=== PATIENT | male | born 1940 | race Two or more races ===

== ENCOUNTER 2019-08-11 10:49 | Inpatient (IN) | payer MEDICARE, OTHER ==
[~2019-08-11] VITALS: Ht 152.4 cm; Wt 56.7 kg
[2019-08-11] VITALS (9 sets, daily range): BP systolic 112–128; BP diastolic 42–68
--- NOTE | 2019-08-11 10:50 | NUR ---
ED Nurse Note: [facility] d/t episodes of bradycardia with HR 38--68 bpm. Pt's GCS 13, verbally responsive to painful stimuli. Pt's with G-tube. Noted skin intact. Per used car manager, pt has PMHx of HTN, CVA. Placed on bed, hooked to radiation monitor.
--- NOTE | 2019-08-11 11:00 | NUR ---
ED Nurse Note: Pt's on bed, no signs of acute distress; son on bedside.
--- NOTE | 2019-08-11 11:10 | NUR ---
ED Nurse Note: rectal temp: 98.1F
--- NOTE | 2019-08-11 11:22 | NUR ---
ED Nurse Note: X-ray on bedside.
--- NOTE | 2019-08-11 11:22 | Emergency Room Report ---
History of Present Illness General Chief Complaint: General Complaint Source: EMS Present Illness HPI Is a 79-year-old male brought in by EMS after increased bradycardia. Apparently patient has had this in the past. Patient had prior history of multiple blood pressure medications as well as hyperkalemia in the past. He had been noted to have some history of dementia in the past and had previously been hospitalized at [facility] approximately 3 months ago. Allergies: Coded Allergies: PENICILLINS (Unverified Allergy, Unknown, 08/11/19) Patient History Past Medical History: HTN, dementia Reviewed Nursing Documentation: PMH: Agreed; PSxH: Agreed Nursing Documentation-PMH Hx Cardiac Problems: No - Hypokalemia Hx COPD: No - Acute Respiratory Failure with Hypoxia Hx Gastrointestinal Problems: Yes - Gastrostomy Hx Dialysis: No - Generalized muscle weakness History Of Psychiatric Problem: Yes - Dementia Hx Seizures: Yes - Epilepsy Physical Exam Vital Signs Date Time Temp Pulse Resp B/P (MAP) Pulse Ox O2 Delivery O2 Flow Rate FiO2 08/11/19 10:37 98.8 52 18 138/72 (94) 97 Room Air General Appearance: no apparent distress, GCS 15, Chronically Ill ENT: normal ENT inspection Neck: full range of motion, supple Respiratory: chest non-tender, lungs clear, normal breath sounds, no rhonchi Cardiovascular #1: bradycardia Gastrointestinal: normal inspection, normal bowel sounds, non tender, soft Musculoskeletal: normal inspection, normal range of motion Neurologic: alert, motor strength/tone normal, repair servicer III-XII nml as tested, oriented x3 Skin: no rash Lymphatic: normal inspection Medical Decision Making Diagnostic Impression: Primary Impression: Bradycardia Additional Impressions: Hyperkalemia Dementia ER Course Patient presented for bradycardia. Differential diagnosis include was not limited to hyperkalemia, medication reaction, sick sinus syndrome among others. Laboratory testing shows some evidence of hyperkalemia. The patient was noted to bradycardia with some associated hypotension. He was given peripheral dopamine with some improvement in the bradycardia.Because of complexity of patient's case laboratory tests and imaging studies were ordered. Patient's heart rate is somewhat slow and may be related to medications. He was given IV calcium as well as Kayexalate due to hyperkalemia. Patient was started on a dopamine drip. He had improvement in his heart rate initiallyDrDhaval Kee was contacted for inpatient management patient would be admitted to ICU due to bradycardia. Labs Test 08/11/19 11:19 White Blood Count 8.3 K/UL (4.8-10.8) Red Blood Count 3.83 M/UL (4.70-6.10) Hemoglobin 12.8 G/DL (14.2-18.0) Hematocrit 39.9 % (42.0-52.0) Mean Corpuscular Volume 104 FL (80-99) Mean Corpuscular Hemoglobin 33.4 PG (27.0-31.0) Mean Corpuscular Hemoglobin Concent 32.0 G/DL (32.0-36.0) Red Cell Distribution Width 11.7 % (11.6-14.8) Platelet Count 252 K/UL (150-450) Mean Platelet Volume 8.1 FL (6.5-10.1) Neutrophils (%) (Auto) 56.6 % (45.0-75.0) Lymphocytes (%) (Auto) 25.1 % (20.0-45.0) Monocytes (%) (Auto) 12.0 % (1.0-10.0) Eosinophils (%) (Auto) 4.1 % (0.0-3.0) Basophils (%) (Auto) 2.2 % (0.0-2.0) Sodium Level 128 MMOL/L (136-145) Potassium Level 5.5 MMOL/L (3.5-5.1) Chloride Level 95 MMOL/L (98-107) Carbon Dioxide Level 30 MMOL/L (21-32) Anion Gap 3 mmol/L (5-15) Blood Urea Nitrogen 24 mg/dL (7-18) Creatinine 0.6 MG/DL (0.55-1.30) Estimat Glomerular Filtration Rate mL/min (>60) Glucose Level 130 MG/DL (74-106) Calcium Level 8.1 MG/DL (8.5-10.1) Total Bilirubin 0.3 MG/DL (0.2-1.0) Aspartate Amino Transf (AST/SGOT) 56 U/L (15-37) Alanine Aminotransferase (ALT/SGPT) 94 U/L (12-78) Alkaline Phosphatase 236 U/L (46-116) Troponin I 0.000 ng/mL (0.000-0.056) Total Protein 7.4 G/DL (6.4-8.2) Albumin 2.8 G/DL (3.4-5.0) Globulin 4.6 g/dL Albumin/Globulin Ratio 0.6 (1.0-2.7) Thyroid Stimulating Hormone (TSH) 2.104 uiU/mL (0.358-3.740) EKG Diagnostic Results Rate: bradycardiac Rhythm: NSR ST Segments: no acute changes Last Vital Signs Date Time Temp Pulse Resp B/P (MAP) Pulse Ox O2 Delivery O2 Flow Rate FiO2 08/11/19 10:37 98.8 52 18 138/72 (94) 97 Room Air Status: improved Disposition: ADMITTED INPATIENT Condition: Serious Mihai Hart MD Aug 11, 2019 11:22
[2019-08-11] MEDS ORDERED: NORCO 5-325 TA1 EACH ORAL (11:27)
[2019-08-11] MEDS ORDERED: FLOMAX0.4 MG GT (11:27)
[2019-08-11] MEDS ORDERED: HYDROCHLOROTH12.5 MG GT (11:27)
[2019-08-11] MEDS ORDERED: LOSARTAN POTAS100 MG GT (11:27)
[2019-08-11] MEDS ORDERED: MULTI-VITE9 MG/15 ML PO (11:27)
[2019-08-11] MEDS ORDERED: POTASSIUM40 MEQ/11 PO (11:27)
[2019-08-11] MEDS ORDERED: VITAMIN C500 M1 GT (11:27)
[2019-08-11] MEDS ORDERED: DONEPEZIL HCL5 MG GT (11:27)
[2019-08-11] MEDS ORDERED: ZYPREXA5 MG GT (11:27)
[2019-08-11] MEDS ORDERED: COLACE100 MG GT (11:27)
[2019-08-11] MEDS ORDERED: PHENYTOIN100 MG/4 M ORAL (11:27)
[2019-08-11] MEDS ORDERED: BYSTOLIC10 MG GT (11:27)
[2019-08-11] MEDS ORDERED: ACETAMINOPHEN325 M1 ORAL (11:27)
[2019-08-11] MEDS ORDERED: AMLODIPINE BESY10 MG GT (11:27)
[2019-08-11 11:39] LABS: BASOPHILS % (AUTO) 2.2 % (0.0-2.0); EOSINOPHILS % (AUTO) 4.1 % (0.0-3.0); HEMATOCRIT 39.9 % (42.0-52.0); HEMOGLOBIN 12.8 G/DL (14.2-18.0); LYMPHOCYTES % (AUTO) 25.1 % (20.0-45.0); MEAN CORPUSCULAR VOLUME 104 FL (80-99); NEUTROPHILS % (AUTO) 56.6 % (45.0-75.0); PLATELET COUNT 252 K/UL (150-450); RED BLOOD COUNT 3.83 M/UL (4.70-6.10); RED CELL DISTRIBUTION WIDTH 11.7 % (11.6-14.8); WHITE BLOOD COUNT 8.3 K/UL (4.8-10.8)
[2019-08-11 11:47] LABS: ANION GAP 3 mmol/L (5-15); BLOOD UREA NITROGEN 24 mg/dL (7-18); CALCIUM 8.1 MG/DL (8.5-10.1); CARBON DIOXIDE 30 MMOL/L (21-32); CHLORIDE 95 MMOL/L (98-107); CREATININE 0.6 MG/DL (0.55-1.30); POTASSIUM 5.5 MMOL/L (3.5-5.1); SODIUM 128 MMOL/L (136-145)
--- NOTE | 2019-08-11 11:57 | Diagnostic Imaging Report ---
EXAM: XR Chest, 1 View CLINICAL HISTORY: Shortness of breath TECHNIQUE: Frontal view of the chest. COMPARISON: No relevant prior studies available. FINDINGS: Lungs: Low lung volumes, likely related to shallow inspiration. Mildly increased interstitial markings. No focal consolidation. Pleural space: Unremarkable. The costophrenic angles are sharp. No visible pneumothorax. Heart: Borderline enlarged, however may be magnified by portable AP technique. Mediastinum: Unremarkable. Bones/joints: Unremarkable. Vasculature: Atherosclerotic calcifications are noted within the aortic arch. Tubes, lines and devices: Telemetry leads overlie the thorax. IMPRESSION: 1. Low lung volumes, likely related to shallow inspiration. 2. Mildly increased interstitial markings, likely related to bronchovascular crowding from the low lung volumes. Diagnostic considerations may also include mild pulmonary vascular congestion or interstitial pneumonitis.
[2019-08-11 12:02] LABS: ALANINE AMINOTRANSFERASE 94 U/L (12-78); ALBUMIN 2.8 G/DL (3.4-5.0); ALBUMIN/GLOBULIN RATIO 0.6 (1.0-2.7); ALKALINE PHOSPHATASE 236 U/L (46-116); ASPARTATE AMINO TRANSFERASE 56 U/L (15-37); BILIRUBIN,TOTAL 0.3 MG/DL (0.2-1.0)
[2019-08-11] MEDS: DOPamine 400mg/250ml 250 ML IV SCH (12:19)
--- NOTE | 2019-08-11 12:25 | NUR ---
ED Nurse Note: Started on Dopamin drip; tolerated on IV site, intact, patent, clean/dry. No signs of redness/swelling noted.
[2019-08-11] MEDS ORDERED: Calcium Gluconate 1gm/10ml vial IVP ONE (12:45)
[2019-08-11] MEDS ORDERED: Sodium Polystyrene Sulfonate 15gm Powder ORAL ONE (12:45)
--- NOTE | 2019-08-11 12:50 | NUR ---
ED Nurse Note: Dr. Hart notified of the need of central line insertion for Dopamine infusion per policy. Dr. Hart ordered to continue dopamine infusion via peripheral line at this time. ERMD informed this RN that Dr. Kee also made aware of Dopamine infusion via peripheral line. Dopamine 8mcg/kg/min @ 17ml/hr running via right forearm IV 20g. No redness, pain, or swelling noted on the infusion site. scrap crane operator notified. Patient resting in bed without facial grimacing or guarding. Bed in lowest position.
--- NOTE | 2019-08-11 13:06 | NUR ---
ED Nurse Note: ERMD ordered to decrease Dopamine infusion rate. RN decrased infusion rated to 6mcg/kg/min as ordered.
--- NOTE | 2019-08-11 13:10 | NUR ---
ED Nurse Note: RN discontinued dopamine infusion from right forearm 20g as the site gets redness and warm to touch. Patient HR 68 with BP 116/71.
--- NOTE | 2019-08-11 13:13 | Cardiac Electrophysiology PN ---
Subjective Subjective Saw in [id number] Bradycardia due to hyperkalemia and Bystolic. Transfer to ICU on Dopamine drip. Also on 5 BP meds. Hold all untill off Dopamine Objective Last 24 Hour Vital Signs Date Time Temp Pulse Resp B/P (MAP) Pulse Ox O2 Delivery O2 Flow Rate FiO2 08/11/19 12:57 66 18 120/47 94 Room Air 08/11/19 12:40 98.1 51 21 112/44 91 Room Air 08/11/19 12:25 98.1 42 21 112/44 91 Room Air 08/11/19 12:19 124/42 08/11/19 10:50 98.1 55 18 124/42 97 Room Air 08/11/19 10:50 52 18 Room Air 08/11/19 10:37 98.8 52 18 138/72 (94) 97 Room Air Laboratory Tests Test 08/11/19 11:19 White Blood Count 8.3 K/UL (4.8-10.8) Red Blood Count 3.83 M/UL (4.70-6.10) L Hemoglobin 12.8 G/DL (14.2-18.0) L Hematocrit 39.9 % (42.0-52.0) L Mean Corpuscular Volume 104 FL (80-99) H Mean Corpuscular Hemoglobin 33.4 PG (27.0-31.0) H Mean Corpuscular Hemoglobin Concent 32.0 G/DL (32.0-36.0) Red Cell Distribution Width 11.7 % (11.6-14.8) Platelet Count 252 K/UL (150-450) Mean Platelet Volume 8.1 FL (6.5-10.1) Neutrophils (%) (Auto) 56.6 % (45.0-75.0) Lymphocytes (%) (Auto) 25.1 % (20.0-45.0) Monocytes (%) (Auto) 12.0 % (1.0-10.0) H Eosinophils (%) (Auto) 4.1 % (0.0-3.0) H Basophils (%) (Auto) 2.2 % (0.0-2.0) H Sodium Level 128 MMOL/L (136-145) L Potassium Level 5.5 MMOL/L (3.5-5.1) H Chloride Level 95 MMOL/L (98-107) L Carbon Dioxide Level 30 MMOL/L (21-32) Anion Gap 3 mmol/L (5-15) L Blood Urea Nitrogen 24 mg/dL (7-18) H Creatinine 0.6 MG/DL (0.55-1.30) Estimat Glomerular Filtration Rate mL/min (>60) Glucose Level 130 MG/DL (74-106) H Calcium Level 8.1 MG/DL (8.5-10.1) L Total Bilirubin 0.3 MG/DL (0.2-1.0) Aspartate Amino Transf (AST/SGOT) 56 U/L (15-37) H Alanine Aminotransferase (ALT/SGPT) 94 U/L (12-78) H Alkaline Phosphatase 236 U/L (46-116) H Troponin I 0.000 ng/mL (0.000-0.056) Total Protein 7.4 G/DL (6.4-8.2) Albumin 2.8 G/DL (3.4-5.0) L Globulin 4.6 g/dL Albumin/Globulin Ratio 0.6 (1.0-2.7) L Thyroid Stimulating Hormone (TSH) 2.104 uiU/mL (0.358-3.740) Danial Capellan MD Aug 11, 2019 13:13
--- NOTE | 2019-08-11 13:17 | NUR ---
ED Nurse Note: Dr. Hart notified of discontinuation of Dopamine infusion due to redness/warmth on IV site. IV 20g forearm remained patent, no swelling noted. HR 52 with BP 118/70. No further order received.
--- NOTE | 2019-08-11 13:20 | NUR ---
ED Nurse Note: Report given to KEILA Dsouza. Patient in bed, bed in lowest position.
--- NOTE | 2019-08-11 13:20 | NUR ---
ED Nurse Note: RN confirmed G-tube placement by auscultation. RN administered Kayexalate via G-tube as ordered. Patient tolerated the procedure without any N/V or cough.
--- NOTE | 2019-08-11 14:00 | NUR ---
ED Nurse Note: DECREASED REDNESS/WARMTH ON THE LEFT FOREARM IV SITE NOTED.
--- NOTE | 2019-08-11 14:00 | NUR ---
ED Nurse Note: US on bedside.
--- NOTE | 2019-08-11 16:51 | NUR ---
TRANSFER TO FLOOR: Patient transferred to SDU as ordered, per Dr. Kee. Report given to Christiana PEDRAZA. Belongings and medications given to receiving nurse. Family and or S/O informed of transfer.
--- NOTE | 2019-08-11 16:52 | NUR ---
ED Nurse Note: No redness on the left forearm noted. 20g IV and 22g IV remained intact and patent.
--- NOTE | 2019-08-11 17:00 | NUR ---
NURSE NOTES: Report received from Lianna BYERS RN.Pt brought to SDU per nithin from ED awake,alert in no resp distress on RA,no signs of pain or discomfort,sinus bradycardia on the monitor HR 38-40's,condom cath inserted draining yellow urine,skin warm and dry IV heplock x2 to LFA 20G and 22G,skin to sacral intact but with redness to RT heel,SR up x2,HOB elevated ,bed lock in lowest position,will continue with plans of care.
--- NOTE | 2019-08-11 17:35 | NUR ---
NURSE NOTES: Pt noted with clamped GT,flushes well.
--- NOTE | 2019-08-11 18:35 | NUR ---
NURSE NOTES: Called DR Kee for admission orders,call returned and orders given.
--- NOTE | 2019-08-11 19:35 | NUR ---
HAND-OFF: Report given to Ivonne Nevarez RN..
--- NOTE | 2019-08-11 19:40 | NUR ---
NURSE NOTES: Received report from KEILA GILLIAM. using SBAR. Patient is awake but confused. On RA with no distress. SB with HR of 46-52/ min. BP 128/55 Afebrile. Denies any pain at this time.Patient has hx of seizures, seizure precaution initiated. IV to LFA 20G, 22G intact and saline locked. bed in low position and locked. bed alarm on, call light in reach.GT patent . condom cath in place with clear/ yellow urine . will continue monitor patient closely.
[2019-08-11] MEDS ORDERED: HYDROcodone/Acetamin 5/325 tab GT PRN (19:45)
[2019-08-11] MEDS ORDERED: Acetaminophen 650mg/20.3ml GT PRN (20:00)
[2019-08-11] MEDS ORDERED: Tamsulosin 0.4mg cap ORAL SCH (21:00)
--- NOTE | 2019-08-11 21:45 | Consultation ---
DATE OF CONSULTATION: 08/11/2019 CARDIOLOGY CONSULTATION CONSULTING PHYSICIAN: Danial Capellan M.D. REFERRING PHYSICIAN: Jorge Kee M.D. REASON FOR CONSULTATION: Bradycardia. Hypertension. HISTORY OF PRESENT ILLNESS: The patient is a 79-year-old gentleman with history of hypertension and dementia who was [facility] for increasing bradycardia. The patient was previously hospitalized at [facility] about 3 months ago. In the emergency room, the patient was found to have hyperkalemic with heart rate in the 30s and was started on dopamine drip. Cardiology consultation was requested for further evaluation and management. REVIEW OF SYSTEMS: Review of systems was negative other than what was mentioned in the history of present illness having though he has some dementia, specifically denies any chest pain or shortness of breath. PAST MEDICAL HISTORY: As mentioned above. FAMILY HISTORY: Noncontributory. SOCIAL HISTORY: He is a [facility] resident. Does not smoke or drink alcohol. MEDICATIONS: Per [facility] list includes also amlodipine 10 mg daily, Bystolic 10 mg daily, hydrochlorothiazide, and losartan 100 mg daily. PHYSICAL EXAMINATION: VITAL SIGNS: Show blood pressure of 120/47, pulse was as low as 42, respirations 18, and he is afebrile. HEAD AND NECK: Showed no JVD. LUNGS: Clear. CARDIOVASCULAR: Shows bradycardia, S1 and S2 with no gallop. ABDOMEN: Soft. EXTREMITIES: No pitting edema. LABORATORY AND DIAGNOSTIC DATA: His labs show a white count of 8.3, hematocrit 12.8, hematocrit of 40, and platelet count of 252,000. Sodium 128, potassium 5.5, BUN of 24, creatinine 0.6. Troponin is negative. Alkaline phosphatase is 236. ASSESSMENT AND PLAN: 1. Bradycardia, likely due to as well as hyperkalemia. LIVIER dose have been held. The patient is started on dopamine drip. We will check a T4 and TSH and transfer the patient to intensive care unit. We will gradually taper off dopamine if the heart rate allows. 2. Hypotension. All the blood pressure medication had been discontinued. The patient is on dopamine drip. We will completely rule out MN protocol. 3. Hyperkalemia. The patient received Kayexalate. 4. Hyponatremia. 5. Dementia. Thank you very much, Dr. Kee, for allowing me to participate in the care of this patient. Please do not hesitate to contact me for any questions regarding my evaluation. Danial Capellan M.D. DR: NARENDRA JOB#: [id number] CC:
[2019-08-11] MEDS: Phenytoin Susp 100mg/4ml GT SCH (22:30)
[2019-08-12] VITALS: BP 141/70
--- NOTE | 2019-08-12 | NUR ---
NURSE NOTES: Patient asleep with no acute distress noted. SB with HR of 62 . BP 141/70. Turned and repositioned.
--- NOTE | 2019-08-12 03:00 | NUR ---
NURSE NOTES: no acute distress noted. GT feeding continues with Nepro at 20cc/hr . no residual. HOB elevated over 30 degrees.keep patient comfortable.
[2019-08-12 04:00] VITALS: BP 110/62
[2019-08-12 06:24] LABS: ANION GAP 8 mmol/L (5-15); BLOOD UREA NITROGEN 16 mg/dL (7-18); CALCIUM 8.5 MG/DL (8.5-10.1); CARBON DIOXIDE 30 MMOL/L (21-32); CHLORIDE 91 MMOL/L (98-107); CREATININE 0.5 MG/DL (0.55-1.30); POTASSIUM 3.9 MMOL/L (3.5-5.1); SODIUM 129 MMOL/L (136-145)
--- NOTE | 2019-08-12 07:23 | NUR ---
HAND-OFF: Report given to MANE MALDONADO RN.SR with HR of 62-69/min. no acute distress.
--- NOTE | 2019-08-12 07:35 | NUR ---
NURSE NOTES: Report received from Ivonne Nevarez RN.Pt resting quietly in bed,awake confused,combative when touch,noted no distress or discomfort,Sinus rhythm on the monitor,GTF Nepro at 20 ml/hr no residual noted,condom cath in placed draining yellow urine,IV sites x2 to RFA 20G and 22G,SR padded, up x2 HOB elevated,bed lock in lowest position will continue with plans of care.
[2019-08-12 08:00] VITALS: BP 132/86
--- NOTE | 2019-08-12 08:40 | NUR ---
NURSE NOTES: Dr Kee at bedside,updated re pt's status HR fr Bradycardia to Sinus rhythm.
[2019-08-12] MEDS ORDERED: hydroCHLOROthiazide 12.5mg TAB GT SCH (09:00)
[2019-08-12] MEDS: Donepezil 5mg Tab GT SCH (09:28)
[2019-08-12] MEDS: Ascorbic Acid 500mg tab GT SCH (09:28)
[2019-08-12] MEDS: Phenytoin Susp 100mg/4ml GT SCH ×2 (09:29→21:02)
[2019-08-12] MEDS: Docusate 100mg/10ml Liq GT SCH (09:29)
[2019-08-12] MEDS: Multivitamins W/Minerals 15 ML UDC GT SCH (09:31)
--- NOTE | 2019-08-12 10:50 | NUR ---
RD ASSESSMENT & RECOMMENDATIONS SEE CARE ACTIVITY FOR COMPLETE ASSESSMENT DAILY ESTIMATED NEEDS: Needs based on Pulmonary, cardiac, wound 56.8kg 30-35 kcals/kg 8495-3474 total kcals 1.25-1.5 g protein/kg 71-85 g total protein Fluid per MD NUTRITION DIAGNOSIS: Swallowing difficulty r/t dysphagia as evidenced by pt is PEG dep, on oral grat COATINGS INSPECTOR -> puree and honey thickened. CURRENT TF:Nepro @20ml/hr x20 hrs ENTERAL NUTRITION RECOMMENDATIONS: Maintain, rec to increase to goal of 48ml/hr x20 hrs to provide 960ml, 1728 kcal, 78g pro, 698ml free H2O - As medically able, rec to increase goal to 48ml/hr x20 hrs to better meet est nutritional needs - HOLD TF 1 HR BEFORE AND AFTER DILANTIN - Flush per MD, HOB Over 30 degrees ADDITIONAL RECOMMENDATIONS: 1) TF recs as above 2) Monitor lyts, ability to change TF 3) Wound care: add NELIA BID + Vit C 250mg daily via GT 4) BELT CUTTER eval prior to oral diet
[2019-08-12] MEDS: DOPamine 400mg/250ml 250 ML IV SCH (11:30)
[2019-08-12 12:00] VITALS: BP 124/74
--- NOTE | 2019-08-12 12:09 | NUR ---
NURSE NOTES: pt stable,no distress presentedkept dry and cleanturned and repositioned.
--- NOTE | 2019-08-12 15:00 | History and Physical Report ---
DATE OF ADMISSION: 08/11/2019 CHIEF COMPLAINT: Shortness of breath, bradycardia. HISTORY OF PRESENT ILLNESS: The patient is a 79-year-old male. He has a history of hypertensive heart disease, dementia, chronic kidney disease. He has a history of G-tube as well as some questionable history of pacemaker. He presented from a half-way facility with complaints of shortness of breath. The patient is a poor historian. He is unable to provide any history. He has been convalescing at a half-way facility for some time now. He has been otherwise stable except for bouts of agitation and combative behavior. There are no reports of any fever or chills. No cough. No congestion. On evaluation in the emergency room, the patient was bradycardic in the 40 range. He was also noted to be hyperkalemic. He received a dose of calcium gluconate as well as Kayexalate and is now admitted for further evaluation and care. PAST MEDICAL HISTORY: As above. PAST SURGICAL HISTORY: Includes a G-tube. CURRENT MEDICATIONS: Reconciled and reviewed. ALLERGIES: Include penicillin. FAMILY HISTORY: Noncontributory. SOCIAL HISTORY: There is no known history of tobacco, ethanol, or drugs. REVIEW OF SYSTEMS: Unobtainable as the patient is confused. PHYSICAL EXAMINATION: VITAL SIGNS: Temperature 98 degrees, pulse 59, respirations 20, blood pressure 110/62. GENERAL: The patient is a thin, elderly male, in no apparent distress. He is currently resting. NECK: Supple. HEART: Regular rate and rhythm. LUNGS: Clear. ABDOMEN: Soft, nontender, nondistended. EXTREMITIES: Without clubbing, cyanosis, or edema. LABORATORY DATA: White count 8, hemoglobin 12, platelet count of 252. Sodium 128, potassium 5.5, chloride 95, bicarb 30, BUN 24, creatinine 0.6. AST 56, ALT 94, alkaline phosphatase 236. Natriuretic peptide level was 576. Troponin is negative x2. TSH was 2.2. ASSESSMENT: This is an elderly male with a history of dementia, chronic kidney disease, dysphagia status post G-tube, hypertension, dementia with psychosis admitted with complaints of bradycardia, unclear etiology. PROBLEM LIST: 1. Bradycardia, rule out underlying conduction system disease. 2. Hypertension. 3. Chronic kidney disease. 4. Hyponatremia. 5. Elevated liver function tests. PLAN: 1. Monitor on telemetry. 2. Cautious hydration. 3. Check an abdominal ultrasound. 4. DVT and stress ulcer prophylaxis. 5. The patient is a Full Code per family. Jorge Kee M.D. DR: CLIFFORD JOB#: [id number] CC:
--- NOTE | 2019-08-12 15:10 | NUR ---
NURSE NOTES: Family member , son st bedside,updated re pt's status.
[2019-08-12 16:00] VITALS: BP 143/64
--- NOTE | 2019-08-12 19:20 | NUR ---
HAND-OFF: Report given to Grabiel Mina RN..
--- NOTE | 2019-08-12 19:30 | NUR ---
NURSE NOTES: Received pt in no acute distress, awake, alert but confused and resistive to care at times. HOB elevated, on room air showing no signs of respiratory distress; no SOB, currently denies pain. Bed rails padded. Pt is NSR, afebrile, BP stable. HL on RFAx2 intact. GT patent, GTF with Nepro continues at 20ml/h with 0 residuals. condom cath intact. Will continue to monitor and follow through with plan of care
[2019-08-12 20:00] VITALS: BP 121/75
[2019-08-13] VITALS: BP 133/76
--- NOTE | 2019-08-13 | NUR ---
NURSE NOTES: Sleeping with HOB elevated; VSS, no distress.Afebrile
[2019-08-13 04:00] VITALS: BP 149/73
--- NOTE | 2019-08-13 04:00 | NUR ---
NURSE NOTES: Condom cath leaked. Urine smells strong. Complete bed bath done. afebrile, BP stable. NSR, no bradycardic episode. No distress, remains confused. Tolerating GTF; no BM
--- NOTE | 2019-08-13 07:02 | NUR ---
HAND-OFF: Report given to Waldemar PEDRAZA.
--- NOTE | 2019-08-13 07:15 | NUR ---
NURSE NOTES: Received report from KEILA Spain. Patient asleep and responsive to verbal. No distress/SOB noted on room air. Condom cath intact and and draining with yellow color urine. Gtube intact, clean and running with Nepro 20ml/hr. Right FA 22G IV intact and clean. Kept dry, clean and comfortable. Will continue plan of care.
--- NOTE | 2019-08-13 07:32 | General Progress Note ---
Assessment/Plan Problem List: (1) Dysphagia ICD Codes: R13.10 - Dysphagia, unspecified SNOMED: 25132488, 705742797 (2) Dementia with behavioral problem ICD Codes: F03.91 - Unspecified dementia with behavioral disturbance SNOMED: 5837149172239 (3) Hyperkalemia ICD Codes: E87.5 - Hyperkalemia SNOMED: 51645922 (4) Bradycardia ICD Codes: R00.1 - Bradycardia, unspecified SNOMED: 63672510 (5) Dementia ICD Codes: F03.90 - Unspecified dementia without behavioral disturbance SNOMED: 34290917 Status: stable, progressing Assessment/Plan: stable nacl supplements/ivf for low sodium gt feeds anxiolytics monitor hr Subjective ROS Limited/Unobtainable: No Constitutional: Reports: malaise, weakness HEENT: Reports: no symptoms Cardiovascular: Reports: no symptoms Respiratory: Reports: no symptoms Gastrointestinal/Abdominal: Reports: difficulty swallowing Genitourinary: Reports: no symptoms Neurologic/Psychiatric: Reports: anxiety, emotional problems Endocrine: Reports: no symptoms Hematologic/Lymphatic: Reports: no symptoms Allergies: Coded Allergies: PENICILLINS (Unverified Allergy, Unknown, 08/11/19) All Systems: reviewed and negative except above Subjective no events. bradycardia better. Objective Last 24 Hour Vital Signs Date Time Temp Pulse Resp B/P (MAP) Pulse Ox O2 Delivery O2 Flow Rate FiO2 08/13/19 04:00 68 08/13/19 04:00 97.8 68 18 149/73 (98) 96 08/13/19 04:00 Room Air 08/13/19 00:00 Room Air 08/13/19 00:00 98.4 70 20 133/76 (95) 96 08/13/19 00:00 65 08/12/19 20:00 97.9 71 20 121/75 (90) 95 08/12/19 20:00 73 08/12/19 20:00 Room Air 08/12/19 17:17 69 08/12/19 16:00 98.6 69 20 143/64 (90) 95 08/12/19 12:00 62 08/12/19 12:00 98.4 63 19 124/74 (91) 95 08/12/19 09:28 68 132/86 08/12/19 08:01 65 08/12/19 08:00 Room Air 08/12/19 08:00 98.1 68 20 132/86 (101) 95 Intake and Output 08/12/19 08/13/19 19:00 07:00 Intake Total 560 ml 220 ml Output Total 500 ml 300 ml Balance 60 ml -80 ml Intake Free Water 100 ml Tube Feeding 240 ml 220 ml Blood Product 100 ml Other 120 ml Output Urine Total 500 ml 300 ml Height (Feet): 5 Height (Inches): 1.00 Weight (Pounds): 125 General Appearance: WD/WN, alert Neck: supple Cardiovascular: regular rhythm Respiratory/Chest: chest wall non-tender, lungs clear, normal breath sounds Abdomen: normal bowel sounds, non tender, soft, no organomegaly Edema: no edema noted Arm (L), no edema noted Arm (R), no edema noted Leg (L), no edema noted Leg (R), no edema noted Pedal (L), no edema noted Pedal (R), no edema noted Generalized Jorge Kee MD Aug 13, 2019 07:32
[2019-08-13 08:00] VITALS: BP 110/45
[2019-08-13] MEDS: Ascorbic Acid 500mg tab GT SCH (08:37)
[2019-08-13] MEDS: Phenytoin Susp 100mg/4ml GT SCH ×2 (08:37→20:55)
[2019-08-13] MEDS: Donepezil 5mg Tab GT SCH (08:37)
[2019-08-13] MEDS: Docusate 100mg/10ml Liq GT SCH (08:38)
[2019-08-13] MEDS: Multivitamins W/Minerals 15 ML UDC GT SCH (08:38)
--- NOTE | 2019-08-13 08:45 | Cardiac Electrophysiology PN ---
Assessment/Plan Assessment/Plan 1. Bradycardia, likely due to Betablocker and hyperkalemia. Dopamine drip DCed. Resolved. Ruled out for [place] 2. Hypotension. Resolved after all the blood pressure medication had been discontinued. Now on Norvasc 10 daily. 3. Hyperkalemia. Resolved after Kayexalate. 4. Hyponatremia. 5. Dementia. 6. Dysphagia PEG feeding ongoing DW RN nd Dr Kee Subjective Subjective Bradycardia due to hyperkalemia and Bystolic. Resolved. Off Dopamine drip. On BLAZE. Objective Last 24 Hour Vital Signs Date Time Temp Pulse Resp B/P (MAP) Pulse Ox O2 Delivery O2 Flow Rate FiO2 08/13/19 04:00 68 08/13/19 04:00 97.8 68 18 149/73 (98) 96 08/13/19 04:00 Room Air 08/13/19 00:00 Room Air 08/13/19 00:00 98.4 70 20 133/76 (95) 96 08/13/19 00:00 65 08/12/19 20:00 97.9 71 20 121/75 (90) 95 08/12/19 20:00 73 08/12/19 20:00 Room Air 08/12/19 17:17 69 08/12/19 16:00 98.6 69 20 143/64 (90) 95 08/12/19 12:00 62 08/12/19 12:00 98.4 63 19 124/74 (91) 95 08/12/19 09:28 68 132/86 Intake and Output 08/12/19 08/13/19 19:00 07:00 Intake Total 560 ml 220 ml Output Total 500 ml 300 ml Balance 60 ml -80 ml Intake Free Water 100 ml Tube Feeding 240 ml 220 ml Blood Product 100 ml Other 120 ml Output Urine Total 500 ml 300 ml Laboratory Tests Test 08/13/19 07:45 Sodium Level Pending Potassium Level Pending Chloride Level Pending Carbon Dioxide Level Pending Blood Urea Nitrogen Pending Creatinine Pending Estimat Glomerular Filtration Rate Pending Glucose Level Pending Calcium Level Pending Total Bilirubin Pending Aspartate Amino Transf (AST/SGOT) Pending Alanine Aminotransferase (ALT/SGPT) Pending Alkaline Phosphatase Pending Total Protein Pending Albumin Pending Globulin Pending Objective HEAD AND NECK: No JVD. LUNGS: Clear. CARDIOVASCULAR: Regular S1 and S2 with no gallop. ABDOMEN: Soft.PEG in place EXTREMITIES: No pitting edema. Danial Capellan MD Aug 13, 2019 08:45
[2019-08-13 08:54] LABS: ALANINE AMINOTRANSFERASE 107 U/L (12-78); ALBUMIN 3.1 G/DL (3.4-5.0); ALBUMIN/GLOBULIN RATIO 0.6 (1.0-2.7); ALKALINE PHOSPHATASE 311 U/L (46-116); ANION GAP 5 mmol/L (5-15); ASPARTATE AMINO TRANSFERASE 44 U/L (15-37); BILIRUBIN,TOTAL 0.3 MG/DL (0.2-1.0); BLOOD UREA NITROGEN 16 mg/dL (7-18); CALCIUM 9.1 MG/DL (8.5-10.1); CARBON DIOXIDE 33 MMOL/L (21-32); CHLORIDE 93 MMOL/L (98-107); CREATININE 0.6 MG/DL (0.55-1.30); POTASSIUM 3.9 MMOL/L (3.5-5.1); SODIUM 131 MMOL/L (136-145)
[2019-08-13] MEDS: DOPamine 400mg/250ml 250 ML IV SCH (11:30)
[2019-08-13 12:00] VITALS: BP 132/64
--- NOTE | 2019-08-13 12:05 | NUR ---
NURSE NOTES: Repositioned patient. Kept dry, clean and comfortable.
[2019-08-13] MEDS ORDERED: NS 275ml ONE (14:57)
[2019-08-13] MEDS ORDERED: Sterile Water Irrig 1000ml IRRIG ONE (14:57)
[2019-08-13 16:00] VITALS: BP 130/77
--- NOTE | 2019-08-13 16:20 | NUR ---
NURSE NOTES: Bed bath given.
--- NOTE | 2019-08-13 16:39 | NUR ---
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 98.8 HR 52 RR 18 B/P 138/72 NA 128 K 5.5 BUN 24 AST 56 ALT 94 ALK PHOS 236 CXR=Low lung volumes, likely related to shallow inspiration. 2. Mildly increased interstitial markings, likely related to bronchovascular crowding from the low lung volumes. Diagnostic considerations may also include mild pulmonary vascular congestion or interstitial pneumonitis. IS: DOPAMINE IV ADMITTED TO STEP DOWN @ 1651 STEP DOWN STATUS DCP RETURN TO [facility]
--- NOTE | 2019-08-13 17:30 | NUR ---
NURSE NOTES: Received report from Waldemar PEDRAZA. Patient resting in bed. No signs of distress. GT feeding running at desired rate, tolerating well. Safety precautions in place. HOB elevated, Bed locked, lowest position, call light within reach. Will continue to monitor
--- NOTE | 2019-08-13 19:47 | NUR ---
HAND-OFF: Report given to KEILA Anderson. Endorsed plan of care.
[2019-08-13 20:00] VITALS: BP 117/66
[2019-08-13] MEDS: Heparin 5000 units/ml inj SUBQ SCH (20:54)
[2019-08-14] VITALS: BP 135/75
[2019-08-14 04:00] VITALS: BP 118/63
--- NOTE | 2019-08-14 07:20 | NUR ---
HAND-OFF: Report given to KEILA Olivarez. Patient in stable condition.
--- NOTE | 2019-08-14 07:25 | NUR ---
NURSE NOTES: Received bedside report from Crys PEDRAZA. Pt. in bed, sleeping but arousable. No sign of distress. No grimacing noted. HOB elevated at all times. On GTF Nephro at 20cc/hr. Tolerating well. IV site at right FA #20g. and right FA #22g. in placed S.L. Bed in low position, locked. Call light within reach. Will cont. to monitor.
[2019-08-14 07:32] LABS: ALANINE AMINOTRANSFERASE 108 U/L (12-78); ALBUMIN 3.2 G/DL (3.4-5.0); ALBUMIN/GLOBULIN RATIO 0.6 (1.0-2.7); ALKALINE PHOSPHATASE 334 U/L (46-116); ANION GAP 10 mmol/L (5-15); ASPARTATE AMINO TRANSFERASE 48 U/L (15-37); BILIRUBIN,TOTAL 0.5 MG/DL (0.2-1.0); BLOOD UREA NITROGEN 17 mg/dL (7-18); CALCIUM 9.5 MG/DL (8.5-10.1); CARBON DIOXIDE 31 MMOL/L (21-32); CHLORIDE 93 MMOL/L (98-107); CREATININE 0.6 MG/DL (0.55-1.30); POTASSIUM 3.1 MMOL/L (3.5-5.1); SODIUM 134 MMOL/L (136-145)
[2019-08-14 08:00] VITALS: BP 131/99
--- NOTE | 2019-08-14 09:36 | Cardiac Electrophysiology PN ---
Assessment/Plan Assessment/Plan 1. Bradycardia, likely due to Betablocker and hyperkalemia. Dopamine drip DCed. Resolved. Ruled out for [place] 2. Hypotension. Resolved. Now on Norvasc 10 daily. 3. Hyperkalemia. Resolved after Kayexalate. 4. Hyponatremia. 5. Dementia. 6. Dysphagia PEG feeding ongoing DW RN Subjective Subjective Bradycardia due to hyperkalemia and Bystolic. Resolved. Lowest HR 54. On BLAZE. Objective Last 24 Hour Vital Signs Date Time Temp Pulse Resp B/P (MAP) Pulse Ox O2 Delivery O2 Flow Rate FiO2 08/14/19 08:00 71 08/14/19 04:00 Room Air 08/14/19 04:00 97.8 66 20 118/63 (81) 94 08/14/19 03:25 67 08/14/19 00:00 Room Air 08/14/19 00:00 98.0 65 20 135/75 (95) 94 08/13/19 23:46 71 08/13/19 20:00 97.9 80 20 117/66 (83) 94 08/13/19 20:00 86 08/13/19 20:00 Room Air 08/13/19 16:00 97.7 81 20 130/77 (94) 94 08/13/19 16:00 79 08/13/19 16:00 Room Air 08/13/19 12:00 Room Air 08/13/19 12:00 97.6 54 20 132/64 (86) 93 08/13/19 12:00 54 08/13/19 11:30 110/45 Intake and Output 08/13/19 08/14/19 19:00 07:00 Intake Total 410 ml 270 ml Output Total 500 ml 300 ml Balance -90 ml -30 ml Intake Free Water 150 ml 50 ml Tube Feeding 260 ml 220 ml Output Urine Total 500 ml 300 ml Laboratory Tests Test 08/14/19 03:41 Sodium Level 134 MMOL/L (136-145) L Potassium Level 3.1 MMOL/L (3.5-5.1) L Chloride Level 93 MMOL/L (98-107) L Carbon Dioxide Level 31 MMOL/L (21-32) Anion Gap 10 mmol/L (5-15) Blood Urea Nitrogen 17 mg/dL (7-18) Creatinine 0.6 MG/DL (0.55-1.30) Estimat Glomerular Filtration Rate mL/min (>60) Glucose Level 127 MG/DL (74-106) H Calcium Level 9.5 MG/DL (8.5-10.1) Total Bilirubin 0.5 MG/DL (0.2-1.0) Aspartate Amino Transf (AST/SGOT) 48 U/L (15-37) H Alanine Aminotransferase (ALT/SGPT) 108 U/L (12-78) H Alkaline Phosphatase 334 U/L (46-116) H Total Protein 8.3 G/DL (6.4-8.2) H Albumin 3.2 G/DL (3.4-5.0) L Globulin 5.1 g/dL Albumin/Globulin Ratio 0.6 (1.0-2.7) L Microbiology Date/Time Source Procedure Growth Status 08/11/19 14:10 Nasal Nares MRSA Culture - Final NO METHICILLIN RESISTANT STAPH AUREUS... Complete 08/11/19 14:10 Rectum - Final NO CARBAPENEM-RESISTANT ENTEROBACTERI... Complete 08/11/19 14:10 Rectum VRE Culture - Final Enterococcus Faecalis - Vre Complete Objective HEAD AND NECK: No JVD. LUNGS: Clear. CARDIOVASCULAR: Regular S1 and S2 with no gallop. ABDOMEN: Soft.PEG in place EXTREMITIES: No pitting edema. Danial Capellan MD Aug 14, 2019 09:36
[2019-08-14] MEDS: Multivitamins W/Minerals 15 ML UDC GT SCH (10:39)
[2019-08-14] MEDS: Ascorbic Acid 500mg tab GT SCH (10:39)
[2019-08-14] MEDS: Donepezil 5mg Tab GT SCH (10:39)
[2019-08-14] MEDS: Docusate 100mg/10ml Liq GT SCH (10:39)
[2019-08-14] MEDS: Heparin 5000 units/ml inj SUBQ SCH (10:41)
[2019-08-14] MEDS: Phenytoin Susp 100mg/4ml GT SCH (10:43)
[2019-08-14 12:00] VITALS: BP 129/69
--- NOTE | 2019-08-14 14:23 | General Progress Note ---
Assessment/Plan Problem List: (1) Dysphagia ICD Codes: R13.10 - Dysphagia, unspecified SNOMED: 64305117, 269028852 (2) Dementia with behavioral problem ICD Codes: F03.91 - Unspecified dementia with behavioral disturbance SNOMED: 0726928345501 (3) Hyperkalemia ICD Codes: E87.5 - Hyperkalemia SNOMED: 95751769 (4) Bradycardia ICD Codes: R00.1 - Bradycardia, unspecified SNOMED: 09944445 (5) Dementia ICD Codes: F03.90 - Unspecified dementia without behavioral disturbance SNOMED: 98713695 Status: stable, progressing Assessment/Plan: stable nacl supplements/ivf for low sodium monitor lytes gt feeds anxiolytics monitor hr check abd us and hep panel dc planning if us ok Subjective ROS Limited/Unobtainable: No Constitutional: Reports: malaise, weakness HEENT: Reports: no symptoms Cardiovascular: Reports: no symptoms Respiratory: Reports: no symptoms Gastrointestinal/Abdominal: Reports: difficulty swallowing Genitourinary: Reports: no symptoms Neurologic/Psychiatric: Reports: no symptoms Endocrine: Reports: no symptoms Hematologic/Lymphatic: Reports: no symptoms Allergies: Coded Allergies: PENICILLINS (Unverified Allergy, Unknown, 08/11/19) All Systems: reviewed and negative except above Subjective no events. bradycardia better. tolerating feeds. confused at baseline. labs reviewed- increased LFTs Objective Last 24 Hour Vital Signs Date Time Temp Pulse Resp B/P (MAP) Pulse Ox O2 Delivery O2 Flow Rate FiO2 08/14/19 12:00 Room Air 08/14/19 12:00 97.7 85 17 129/69 (89) 98 08/14/19 11:48 80 08/14/19 10:39 71 118/63 08/14/19 08:00 97.7 77 17 131/99 (110) 97 08/14/19 08:00 71 08/14/19 08:00 Room Air 08/14/19 04:00 Room Air 08/14/19 04:00 97.8 66 20 118/63 (81) 94 08/14/19 03:25 67 08/14/19 00:00 Room Air 08/14/19 00:00 98.0 65 20 135/75 (95) 94 08/13/19 23:46 71 08/13/19 20:00 97.9 80 20 117/66 (83) 94 08/13/19 20:00 86 08/13/19 20:00 Room Air 08/13/19 16:00 97.7 81 20 130/77 (94) 94 08/13/19 16:00 79 08/13/19 16:00 Room Air Intake and Output 08/13/19 08/14/19 19:00 07:00 Intake Total 410 ml 270 ml Output Total 500 ml 300 ml Balance -90 ml -30 ml Intake Free Water 150 ml 50 ml Tube Feeding 260 ml 220 ml Output Urine Total 500 ml 300 ml Laboratory Tests 08/14/19 03:41: Sodium Level 134L, Potassium Level 3.1L, Chloride Level 93L, Carbon Dioxide Level 31, Anion Gap 10, Blood Urea Nitrogen 17, Creatinine 0.6, Estimat Glomerular Filtration Rate , Glucose Level 127H, Calcium Level 9.5, Total Bilirubin 0.5, Aspartate Amino Transf (AST/SGOT) 48H, Alanine Aminotransferase ( ALT/SGPT) 108H, Alkaline Phosphatase 334H, Total Protein 8.3H, Albumin 3.2L, Globulin 5.1, Albumin/Globulin Ratio 0.6L Height (Feet): 5 Height (Inches): 1.00 Weight (Pounds): 125 Objective General Appearance: WD/WN, alert Neck: supple Cardiovascular: regular rhythm Respiratory/Chest: chest wall non-tender, lungs clear, normal breath sounds Abdomen: normal bowel sounds, non tender, soft, no organomegaly Edema: no edema noted Arm (L), no edema noted Arm (R), no edema noted Leg (L), no edema noted Leg (R), no edema noted Pedal (L), no edema noted Pedal (R), no edema noted Generalized Jorge Kee MD Aug 14, 2019 14:23
[2019-08-14 16:00] VITALS: BP 125/70
--- NOTE | 2019-08-14 16:04 | NUR ---
*-* DISCHARGE PLANNING *-* PATIENT HAS BEEN REFERRED BACK TO: [facility] P: [phone] F: [phone] EFAX: [phone]
--- NOTE | 2019-08-14 17:30 | NUR ---
Discharge: Patient is being discharged back to [facility] from medical care. Gave report to Sharon PEDRAZA . Awake, alert and oriented x1 to himself, confused. All medical devices such as IV, air sampling and monitoring and ID band were removed. Patient wheeled out via [facility] ambulance. Pt. remain stable.
--- NOTE | 2019-08-16 09:16 | Discharge Summary ---
Discharge Summary Discharge Summary _ DATE OF ADMISSION: 08/11/2019 DATE OF DISCHARGE: 08/14/2019 DISCHARGED BY: Dr. Kee REASON FOR ADMISSION: 79 years old male with past medical history of hypertension, seizure disorder, dementia, brought to emergency department by paramedics with bradycardia. Patient apparently was on multiple antihypertensive medications at the facility. Patient was recently hospitalized at [facility] , about 3 months ago. On evaluation patient was bradycardic with heart rate in low 50s. Laboratory work-up revealed no leukocytosis , stable hemoglobin , hematocrit and platelet count. Sodium 128, potassium 5.5. BUN 24 , creatinine 0.7 . Glucose 130. Troponin was negative.EKG revealed sinus bradycardia , no acute ischemic changes . TSH was within normal limits . Chest x-ray revealed low lung volume , mildly increased interstitial markings. 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 Patient noted to be on 5 antihypertensive medications; all of them were hold until patient was off dopamine. Hyperkalemia was treated in ED . Patient started on cautious hydration. DVT and GI prophylaxis provided. 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 Repeated troponin was negative as well. EKG revealed sinus bradycardia, no acute ischemic changes. Echocardiogram revealed preserved ejection fraction of 60 to 65% with no evidence of wall motion abnormality. All antihypertensive medications were discontinued, patient was only on Norvasc 10 mg daily. Bradycardia was likely due to beta-barrie as well as hyperkalemia and resolved. Prior to discharge heart rate in 70-80. Renal parameters and electrolytes were closely monitored. Renal parameters remained stable. Potassium and sodium corrected. LFT were closely monitored. While AST show small trend down , ALT continued to be elevated. Abdominal ultrasound was ordered, but patient was and reluctant to do it. Patient will need abdominal ultrasound as outpatient. Supportive care provided . Patient clinically stabilized and was ready for discharge to custodial facility for continuation of care . FINAL DIAGNOSES: Bradycardia likely due to beta-barrie/Bystolic and hyperkalemia -resolved Hypertension Hyperkalemia Hyponatremia Chronic kidney disease Dysphagia , feeding by G-tube Dementia with behavioral problem DISCHARGE MEDICATIONS: See Medication Reconciliation list. DISCHARGE INSTRUCTIONS: Patient was discharged to the custodial facility. Follow up with medical doctor at the facility. I have been assigned to dictate discharge summary for this account. I was not involved in the patient's management. Jailyn Metz NP Aug 16, 2019 09:16
== END 2019-08-14 17:35 | DRG 641 ==
LOC: EDBD 10:49 → EMR 11:18 → 2W 11:33 → EDBEDREQSVC 13:18 → EDBEDREQ 13:18 → EDBEDREQSVC 14:48 → EDBEDREQ 16:11 → 2W 08-12 09:55
DX: E87.5 Hyperkalemia (principal); F03.91 Unspecified dementia, unspecified severity, with behavioral disturbance; Z43.1 Encounter for attention to gastrostomy; R00.1 Bradycardia, unspecified; E87.1 Hypo-osmolality and hyponatremia; I13.10 Hypertensive heart and chronic kidney disease without heart failure, with stage 1 through stage 4 chronic kidney disease, or unspecified chronic kidney disease; N18.9 Chronic kidney disease, unspecified; Z88.0 Allergy status to penicillin; T44.7X5A Adverse effect of beta-adrenoreceptor antagonists, initial encounter; R13.10 Dysphagia, unspecified; I95.9 Hypotension, unspecified
CPT/HCPCS: 36415; 71045; 80048; 80053; 83880; 84439; 84443; 84484; 85025; 87081; 93005; 93306; 96374; 99285

== ENCOUNTER 2020-05-06 09:49 | Inpatient (IN) | payer MEDICARE, OTHER ==
[~2020-05-06] VITALS: Ht 167.6 cm; Wt 70.0 kg
[~2020-05-06 09:49] MED LIST: ACETAMINOPHEN325 M1 ORAL; AMLODIPINE BESY10 MG GT; BYSTOLIC10 MG GT; COLACE100 MG GT; DONEPEZIL HCL5 MG GT; FLOMAX0.4 MG GT; HYDROCHLOROTH12.5 MG GT; LOSARTAN POTAS100 MG GT; MULTI-VITE9 MG/15 ML PO; NORCO 5-325 TA1 EACH ORAL; PHENYTOIN100 MG/4 M ORAL; POTASSIUM40 MEQ/11 PO; VITAMIN C500 M1 GT; ZYPREXA5 MG GT
[2020-05-06 10:15] VITALS: BP 148/93
[2020-05-06] MEDS ORDERED: Sodium Chloride 2,200 ML IVLG ONE (10:15)
--- NOTE | 2020-05-06 10:30 | Emergency Room Report ---
History of Present Illness General Chief Complaint: Altered Mental Status Source: Patient, Medical Record Present Illness HPI This patient [facility] from a [facility]. He has a history of epilepsy, heart failure, renal failure, history of respiratory failure. He is c hronically ill. He presents from a [facility] facility because he has altered mental status. Per report from the [facility] facility, the patient is usually alert and oriented to self and place. He is DNR with selective treatment. He has a G-tube. 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 COVID-19 Screening: Negative COVID-19 COVID-19 Testing Source: unknown Patient History Past Medical History: see triage record, old chart reviewed, [place], CAD, CHF, COPD, CVA/TIA, dementia, seizures, renal disease Social History: Denies: smoking, alcohol use, drug use Reviewed Nursing Documentation: PMH: Agreed; PSxH: Agreed Nursing Documentation-PMH Past Medical History: No History, Except For Hx Cardiac Problems: Yes - Heart failure, anemia, cardiomypathy Hx Hypertension: Yes - acute pulmonary edema Hx COPD: No - Acute Respiratory Failure with Hypoxia Hx Cancer: No Hx Gastrointestinal Problems: Yes - dysphagia, G-tube Hx Dialysis: No - acute kidney failure, BPH History Of Psychiatric Problem: Yes - Psychosis Hx Neurological Problems: Yes - Encephalopathy, dementia Hx Cerebrovascular Accident: Yes Hx Dementia: Yes Hx Seizures: Yes - Epilepsy Hx Epilepsy: Yes Review of Systems All Other Systems: negative except mentioned in HPI Physical Exam Vital Signs Date Time Temp Pulse Resp B/P (MAP) Pulse Ox O2 Delivery O2 Flow Rate FiO2 05/06/20 09:52 98.6 88 22 162/100 (120) 96 Room Air Sp02 EP Interpretation: reviewed, normal General Appearance: no apparent distress, alert, GCS 15, non-toxic, Chronically Ill Head: normocephalic, atraumatic Eyes: bilateral eye normal inspection ENT: hearing grossly normal, no angioedema Neck: full range of motion, supple/symm/no masses Respiratory: chest non-tender, lungs clear, normal breath sounds, no res piratory distress, no retraction, no accessory muscle use, speaking full sentences Cardiovascular #1: regular rate, rhythm, no edema Gastrointestinal: non tender, soft, non-distended, no guarding, no rebound, oth er - G-tube in place Rectal: deferred Musculoskeletal: normal inspection, normal range of motion, non-tender Neurologic: alert, responsive Psychiatric: mood/affect normal, no suicidal/homicidal ideation Skin: other - See RN skin exam Medical Decision Making Diagnostic Impression: Primary Impression: AMS (altered mental status) Additional Impressions: Elevated troponin I level UTI (urinary tract infection) ER Course This patient presented from the [facility] facility with altered mental status. He was unable to give any type of history so I did a sepsis and CVA work-up. The patient was found to have an elevated troponin and a urinary tract infection. CT of the head showed no evidence of an acute CVA. The patient has many chronic medical problems. He is DNR. He was given IV fluids and broad- spectrum antibiotics. He is given aspirin and Lovenox for his elevated troponin. He is admitted to the telemetry floor for further evaluation and treatment. This patient was evaluated in the context of the global COVID-19 pandemic, which necessitated consideration that the patient might be at risk for infection with the ASKD-RMIOV-3 virus that causes COVID-19. Institutional protocols and algorithms that pertain to the evaluation of patients at risk for COVID-19 and the state of rapid change based on information released by multiple regulatory bodies including the CDC and federal and state organizations. These policies an d algorithms were followed during the patient's care in the ED. This patient is critically ill. This patient required complex medical decision- making, aggressive intervention, extensive laboratory workup and monitoring. Critical care time: 40 minutes. Laboratory Tests Test 05/06/20 11:15 05/06/20 11:30 White Blood Count 11.2 K/UL (4.8-10.8) H Red Blood Count 4.82 M/UL (4.70-6.10) Hemoglobin 15.0 G/DL (14.2-18.0) Hematocrit 47.3 % (42.0-52.0) Mean Corpuscular Volume 98 FL (80-99) Mean Corpuscular Hemoglobin 31.1 PG (27.0-31.0) H Mean Corpuscular Hemoglobin Concent 31.7 G/DL (32.0-36.0) L Red Cell Distribution Width 13.0 % (11.6-14.8) Platelet Count 216 K/UL (150-450) Mean Platelet Volume 10.2 FL (6.5-10.1) H Neutrophils (%) (Auto) 82.8 % (45.0-75.0) H Lymphocytes (%) (Auto) 7.4 % (20.0-45.0) L Monocytes (%) (Auto) 8.5 % (1.0-10.0) Eosinophils (%) (Auto) 0.4 % (0.0-3.0) Basophils (%) (Auto) 1.0 % (0.0-2.0) D-Dimer 2.16 mg/L FEU (0.00-0.49) H Sodium Level 133 MMOL/L (136-145) L Potassium Level 4.8 MMOL/L (3.5-5.1) Chloride Level 90 MMOL/L (98-107) L Carbon Dioxide Level > 45 MMOL/L (21-32) *H Blood Urea Nitrogen 18 mg/dL (7-18) Creatinine 0.7 MG/DL (0.55-1.30) Estimated Glomerular Filtration Rate > 60 mL/min (>60) Glucose Level 159 MG/DL (74-106) H Lactic Acid Level 1.10 mmol/L (0.4-2.0) Calcium Level 8.5 MG/DL (8.5-10.1) Ferritin Pending Total Bilirubin Pending Aspartate Amino Transferase (AST) Pending Alanine Aminotransferase (ALT) Pending Alkaline Phosphatase Pending Lactate Dehydrogenase Pending Total Creatine Kinase Pending Creatine Kinase MB Pending Troponin I 0.315 ng/mL (0.000-0.056) C-Reactive Protein, Quantitative Pending Total Protein Pending Albumin Pending Globulin Pending Urine Color Pale yellow Urine Appearance Clear Urine pH 5 (4.5-8.0) Urine Specific [place] 1.020 (1.005-1.035) Urine Protein Negative (NEGATIVE) Urine Glucose (UA) Negative (NEGATIVE) Urine Ketones 1+ (NEGATIVE) H Urine Blood 4+ (NEGATIVE) H Urine Nitrite Negative (NEGATIVE) Urine Bilirubin Negative (NEGATIVE) Urine Urobilinogen Normal MG/DL (0.0-1.0) Urine Leukocyte Esterase 1+ (NEGATIVE) H Urine RBC 5-10 /HPF (0 - 0) H Urine WBC 10-15 /HPF (0 - 0) H Urine Squamous Epithelial Cells Occasional /LPF Urine Bacteria Few /HPF (NONE) EKG Diagnostic Results Troponin ordered: Yes EKG Time: 09:57 Rate: tachycardiac Rhythm: other - s.tachycardia ST Segments: other - NSST findings, Qwaves in V1, V2, V# Rhythm Strip Diag. Results EP Interpretation: yes Rate: 90's Rhythm: NSR, other - Frequent PVC's Chest X-Ray Diagnostic Results Chest X-Ray Diagnostic Results : Chest X-Ray Ordered: Yes # of Views/Limited/Complete: 1 View Indication: Other EP Interpretation: Yes Interpretation: no acute cardiopulmonary disease, other - Old LLL opacity, limited exam. Impression: No acute disease Electronically Signed by: Carmelina Dominguez DO CT/MRI/US Diagnostic Results CT/MRI/US Diagnostic Results : Imaging Test Ordered: CT head Impression Impression: Chronic and age-related changes Evidence of prior right temporoparietal craniotomy. Underlying temporal, parietal, occipital encephalomalacia, suspect related to such. Correlate with clinical and surgical history Other areas of encephalomalacia, as described Negative for acute intracranial bleed or mass effect Bilateral sphenoid sinus disease with air-fluid levels Last Vital Signs Date Time Temp Pulse Resp B/P (MAP) Pulse Ox O2 Delivery O2 Flow Rate FiO2 05/06/20 09:52 98.6 88 22 162/100 (120) 96 Room Air Disposition: ADMITTED INPATIENT Condition: Critical Carmelina Dominguez DO May 06, 2020 10:30
--- NOTE | 2020-05-06 11:16 | Diagnostic Imaging Report ---
Indications: Altered mental status Technique: Spiral acquisitions obtained through the brain. Angled axial and coronal 5 x 5 mm slices were reconstructed. Total dose length product 1018 mGycm. CTDI vol(s) 53 mGy. Dose reduction achieved using automated exposure control Comparison: None. Findings: There is age-related enlargement of the ventricles and extra-axial CSF spaces. There is evidence of prior right temporoparietal craniotomy. There is a sizable area of encephalomalacia involving the posterior right parietal, occipital, and temporal lobes. There is periventricular deep white matter low-attenuation, consistent with chronic microvascular ischemic changes. There is encephalomalacia of the bilateral frontal lobes, predominantly in the white matter. No acute intracranial hemorrhage or edema, mass effect, nor midline shift. There is bilateral sphenoid sinus disease with air-fluid levels. The visualized orbits are unremarkable. The mastoids are clear.. Impression: Chronic and age-related changes Evidence of prior right temporoparietal craniotomy. Underlying temporal, parietal, occipital encephalomalacia, suspect related to such. Correlate with clinical and surgical history Other areas of encephalomalacia, as described Negative for acute intracranial bleed or mass effect Bilateral sphenoid sinus disease with air-fluid levels The CT scanner at [facility] is accredited by the [employer] and the scans are performed using protocols designed to limit radiation exposure to as low as reasonably achievable to attain images of sufficient resolution adequate for diagnostic evaluation.
[2020-05-06 11:49] LABS: EOSINOPHILS % (AUTO) 0.4 % (0.0-3.0); HEMATOCRIT 47.3 % (42.0-52.0); LYMPHOCYTES % (AUTO) 7.4 % (20.0-45.0); MEAN CORPUSCULAR VOLUME 98 FL (80-99); MONOCYTES % (AUTO) 8.5 % (1.0-10.0); NEUTROPHILS % (AUTO) 82.8 % (45.0-75.0); PLATELET COUNT 216 K/UL (150-450); RED BLOOD COUNT 4.82 M/UL (4.70-6.10); WHITE BLOOD COUNT 11.2 K/UL (4.8-10.8)
[2020-05-06 11:51] LABS: APPEARANCE,URINE CLEAR; BILIRUBIN, URINE NEGATIVE (NEGATIVE); COLOR,URINE PALE YELLOW; GLUCOSE, URINE (UA) NEGATIVE (NEGATIVE); KETONES,URINE 1+ (NEGATIVE); LEUKOCYTE ESTERASE ,URINE 1+ (NEGATIVE); NITRITE,URINE NEGATIVE (NEGATIVE); PH,URINE 5 (4.5-8.0); PROTEIN,URINE NEGATIVE (NEGATIVE); UROBILINOGEN,URINE NORMAL MG/DL (0.0-1.0)
[2020-05-06 12:01] LABS: BLOOD UREA NITROGEN 18 mg/dL (7-18); CALCIUM 8.5 MG/DL (8.5-10.1); CHLORIDE 90 MMOL/L (98-107); CREATININE 0.7 MG/DL (0.55-1.30); POTASSIUM 4.8 MMOL/L (3.5-5.1); SODIUM 133 MMOL/L (136-145)
[2020-05-06 12:02] LABS: CARBON DIOXIDE > 45 MMOL/L (21-32)
[2020-05-06 12:05] VITALS: BP 144/90
[2020-05-06] MEDS ORDERED: Aspirin EC 325mg tab ORAL ONE (13:00)
[2020-05-06] MEDS ORDERED: cefTRIAXone 1 GM in NS 55 ML IVPB ONE (13:00)
[2020-05-06 13:06] LABS: ALANINE AMINOTRANSFERASE 76 U/L (12-78); ALBUMIN 3.3 G/DL (3.4-5.0); ASPARTATE AMINO TRANSFERASE 44 U/L (15-37); BILIRUBIN,TOTAL 0.4 MG/DL (0.2-1.0); CKMB 3.4 NG/ML (0.0-3.6); CREATINE KINASE 37 U/L (26-140); FERRITIN 78 NG/ML (8-388); LACTATE DEHYDROGENASE 179 U/L (135-225)
[2020-05-06 13:07] LABS: ALBUMIN/GLOBULIN RATIO 0.6 (1.0-2.7); ALKALINE PHOSPHATASE 122 U/L (46-116)
[2020-05-06] MEDS: Enoxaparin 80mg Inj SUBQ SCH ×2 (13:45→21:00)
[2020-05-06 13:57] VITALS: BP 145/92
[2020-05-06] MEDS ORDERED: KEPPRA LIQ100 MG/1 M GT (14:17)
[2020-05-06] MEDS ORDERED: FUROSEMIDE20 M1 GT (14:17)
--- NOTE | 2020-05-06 14:25 | Diagnostic Imaging Report ---
Indication: Cough Technique: One view of the chest Comparison: 08/11/2019 Findings: There is some left lateral basilar pleural thickening, probably related to adjacent healed rib fracture deformities. No definite acute infiltrates, effusions, congestion. The heart size is upper limits normal. Impression: Findings as noted. No definite acute process
[2020-05-06 15:00] VITALS: BP 154/84
[2020-05-06] MEDS: Cefepime HCl 1 GM in D5W 55 ML IVPB SCH (16:18)
[2020-05-06] MEDS: Vancomycin 500 MG in NS 110 ML IVPB SCH (17:10)
[2020-05-06] MEDS: Docusate 100mg/10ml Liq GT SCH (18:19)
[2020-05-06 20:00] VITALS: BP 134/62
[2020-05-06] MEDS ORDERED: Phenytoin Susp 100mg/4ml GT SCH (21:00)
[2020-05-06] MEDS: levETIRAcetam 500mg/5ml Liquid GT SCH (21:31)
[2020-05-06] MEDS: Tamsulosin 0.4mg cap ORAL SCH (21:31)
[2020-05-07] VITALS: BP 123/66
[2020-05-07 04:00] VITALS: BP 107/70
[2020-05-07] MEDS: Vancomycin 500 MG in NS 110 ML IVPB SCH ×2 (05:38→17:11)
--- NOTE | 2020-05-07 05:56 | Cardiology Progress Note ---
Subjective DATE OF SERVICE: May 07, 2020 No distress Labs pending O2 requirements decreasing Objective Last 24 Hour Vital Signs Date Time Temp Pulse Resp B/P (MAP) Pulse Ox O2 Delivery O2 Flow Rate FiO2 05/07/20 04:00 91 05/07/20 00:00 81 05/06/20 21:00 Nasal Cannula 4.0 05/06/20 20:00 97.0 67 22 134/62 (86) 100 05/06/20 20:00 68 05/06/20 18:51 100 Non-Rebreather 15.0 100 05/06/20 16:00 111 05/06/20 15:03 Non-Rebreather 15.0 05/06/20 15:00 95.4 91 17 154/84 (107) 99 05/06/20 14:35 98.6 101 20 145/92 99 Non-Rebreather 98 05/06/20 13:57 98.6 101 20 145/92 99 Non-Rebreather 05/06/20 12:05 98.6 100 19 144/90 100 Non-Rebreather 05/06/20 10:15 103 21 Room Air 98 05/06/20 10:15 98.6 103 21 148/93 98 Room Air 05/06/20 09:52 98.6 88 22 162/100 (120) 96 Room Air ROS: unchanged from my evaluation of 05/06/20 RHYTHM: NSR LUNGS: diminished breath sounds CARDIAC: normal rate, regular rhythm, normal S1 and S2 ABDOMEN: G-Tube intact EXTREMITIES: non-pitting, No edema Laboratory Tests Test 05/06/20 11:15 05/06/20 11:30 05/06/20 23:20 White Blood Count 11.2 K/UL (4.8-10.8) H Red Blood Count 4.82 M/UL (4.70-6.10) Hemoglobin 15.0 G/DL (14.2-18.0) Hematocrit 47.3 % (42.0-52.0) Mean Corpuscular Volume 98 FL (80-99) Mean Corpuscular Hemoglobin 31.1 PG (27.0-31.0) H Mean Corpuscular Hemoglobin Concent 31.7 G/DL (32.0-36.0) L Red Cell Distribution Width 13.0 % (11.6-14.8) Platelet Count 216 K/UL (150-450) Mean Platelet Volume 10.2 FL (6.5-10.1) H Neutrophils (%) (Auto) 82.8 % (45.0-75.0) H Lymphocytes (%) (Auto) 7.4 % (20.0-45.0) L Monocytes (%) (Auto) 8.5 % (1.0-10.0) Eosinophils (%) (Auto) 0.4 % (0.0-3.0) Basophils (%) (Auto) 1.0 % (0.0-2.0) D-Dimer 2.16 mg/L FEU (0.00-0.49) H Sodium Level 133 MMOL/L (136-145) L Potassium Level 4.8 MMOL/L (3.5-5.1) Chloride Level 90 MMOL/L (98-107) L Carbon Dioxide Level > 45 MMOL/L (21-32) *H Blood Urea Nitrogen 18 mg/dL (7-18) Creatinine 0.7 MG/DL (0.55-1.30) Estimat Glomerular Filtration Rate > 60 mL/min (>60) Glucose Level 159 MG/DL (74-106) H Lactic Acid Level 1.10 mmol/L (0.4-2.0) Calcium Level 8.5 MG/DL (8.5-10.1) Ferritin 78 NG/ML (8-388) Total Bilirubin 0.4 MG/DL (0.2-1.0) Aspartate Amino Transf (AST/SGOT) 44 U/L (15-37) H Alanine Aminotransferase (ALT/SGPT) 76 U/L (12-78) Alkaline Phosphatase 122 U/L (46-116) H Lactate Dehydrogenase 179 U/L (135-225) Total Creatine Kinase 37 U/L (26-140) Creatine Kinase MB 3.4 NG/ML (0.0-3.6) Creatine Kinase MB Relative Index 9.1 Troponin I 0.315 ng/mL (0.000-0.056) C-Reactive Protein, Quantitative 1.1 mg/dL (0.00-0.90) H Total Protein 8.4 G/DL (6.4-8.2) H Albumin 3.3 G/DL (3.4-5.0) L Globulin 5.1 g/dL Albumin/Globulin Ratio 0.6 (1.0-2.7) L Urine Color Pale yellow Urine Appearance Clear Urine pH 5 (4.5-8.0) Urine Specific [employer] 1.020 (1.005-1.035) Urine Protein Negative (NEGATIVE) Urine Glucose (UA) Negative (NEGATIVE) Urine Ketones 1+ (NEGATIVE) H Urine Blood 4+ (NEGATIVE) H Urine Nitrite Negative (NEGATIVE) Urine Bilirubin Negative (NEGATIVE) Urine Urobilinogen Normal MG/DL (0.0-1.0) Urine Leukocyte Esterase 1+ (NEGATIVE) H Urine RBC 5-10 /HPF (0 - 0) H Urine WBC 10-15 /HPF (0 - 0) H Urine Squamous Epithelial Cells Occasional /LPF Urine Bacteria Few /HPF (NONE) Arterial Blood pH 7.347 (7.350-7.450) Arterial Blood Partial Pressure CO2 74.6 mmHg (35.0-45.0) *H Arterial Blood Partial Pressure O2 92.2 mmHg (75.0-100.0) Arterial Blood HCO3 40.0 mmol/L (22.0-26.0) H Arterial Blood Oxygen Saturation 97.6 % (95-100) Arterial Blood Base Excess 11.2 (-2-2) *H Apollo Test Positive Microbiology Date/Time Source Procedure Growth Status 05/06/20 13:49 Rectum Received 05/06/20 11:30 Urine,Clean Catch Urine Culture - Preliminary Gram Negative Abelino Resulted 05/06/20 11:15 Nasopharynx SARS-CoV-2 RdRp Gene Assay - Final Complete Assessment/Plan Assessment/Plan Gram negative UTI Sepsis Metabolic and toxic encephalopathies Cerebrovascular disease with dementia Acute myocardial ischemia and possible NSTEMI Hypovolemia and dehydration Hypertension/HHD Follow up troponin Continue anti-anginal regimen; titrate meds for BP control. Adjust IVF Antimicrobials Real Magana MD May 07, 2020 05:56
[2020-05-07 07:30] LABS: BASOPHILS % (AUTO) 0.8 % (0.0-2.0); EOSINOPHILS % (AUTO) 0.5 % (0.0-3.0); HEMATOCRIT 44.1 % (42.0-52.0); HEMOGLOBIN 13.8 G/DL (14.2-18.0); LYMPHOCYTES % (AUTO) 13.4 % (20.0-45.0); MEAN CORPUSCULAR VOLUME 98 FL (80-99); MONOCYTES % (AUTO) 14.3 % (1.0-10.0); PLATELET COUNT 157 K/UL (150-450); WHITE BLOOD COUNT 8.4 K/UL (4.8-10.8)
[2020-05-07 07:49] VITALS: BP 125/76
[2020-05-07 08:02] LABS: ALANINE AMINOTRANSFERASE 53 U/L (12-78); ALBUMIN 2.8 G/DL (3.4-5.0); ALBUMIN/GLOBULIN RATIO 0.8 (1.0-2.7); ALKALINE PHOSPHATASE 115 U/L (46-116); ASPARTATE AMINO TRANSFERASE 33 U/L (15-37); BILIRUBIN,TOTAL 0.4 MG/DL (0.2-1.0); BLOOD UREA NITROGEN 12 mg/dL (7-18); CALCIUM 8.4 MG/DL (8.5-10.1); CHLORIDE 94 MMOL/L (98-107); CREATININE 0.6 MG/DL (0.55-1.30); POTASSIUM 4.7 MMOL/L (3.5-5.1); SODIUM 134 MMOL/L (136-145)
[2020-05-07 08:11] LABS: CARBON DIOXIDE 43 MMOL/L (21-32)
[2020-05-07] MEDS: Ascorbic Acid 500mg tab GT SCH (08:36)
[2020-05-07] MEDS: Docusate 100mg/10ml Liq GT SCH ×2 (08:36→17:11)
[2020-05-07] MEDS: levETIRAcetam 500mg/5ml Liquid GT SCH ×2 (08:36→21:16)
[2020-05-07] MEDS: Aspirin Baby 81mg GT SCH (08:36)
[2020-05-07] MEDS: Multivitamins W/Minerals 15 ML UDC GT SCH (08:37)
[2020-05-07] MEDS ORDERED: hydroCHLOROthiazide 12.5mg TAB GT SCH (09:00)
--- NOTE | 2020-05-07 09:30 | History and Physical Report ---
DATE OF ADMISSION: 05/06/2020 CHIEF COMPLAINT: Sepsis, respiratory failure, UTI, acute SD. HISTORY OF PRESENT ILLNESS: The patient is an unfortunate 80-year-old male. He has history of congestive heart failure, COPD, seizure disorder, dementia, dysphagia status post G-tube was transferred from a retirement facility with complaints of shortness of breath. The patient is a poor historian. On evaluation in the emergency room, the patient was hypoxic and placed on a non-rebreather. Laboratories were significant for a elevated troponin of 0.315[place] [address]. UA showed 10 to 15 wbc's. The patient has been started on broad-spectrum IV antibiotic therapy. He is now admitted to a monitored bed. PAST MEDICAL HISTORY: As above. PAST SURGICAL HISTORY: Includes a G-tube. CURRENT MEDICATIONS: Reconciled and reviewed. ALLERGIES: Include penicillin. FAMILY HISTORY: Noncontributory. SOCIAL HISTORY: Negative for tobacco, ethanol, or drugs. REVIEW OF SYSTEMS: From the patient is unobtainable as he is confused. PHYSICAL EXAMINATION: VITAL SIGNS: Temperature 97, pulse 85, respirations 20, and blood pressure 125/76. GENERAL: The patient is a chronic ill-appearing male, in no apparent distress. He is poorly responsive. HEENT: Head is normocephalic and atraumatic. Sclerae anicteric. Oropharynx clear. NECK: Supple. There is no jugular venous distention. HEART: Regular rate and rhythm. LUNGS: Clear anteriorly. ABDOMEN: Soft, nontender, nondistended. EXTREMITIES: No clubbing, cyanosis, or edema. The patient is unable to comply with neurologic exam. LABORATORY DATA: White count 11, hemoglobin 15, platelet 216. Troponin was 0.315. Sodium 133, potassium 4.8, chloride 90, bicarb . ASSESSMENT: This is an unfortunate elderly male with a history of dementia, G-tube, seizure disorder, congestive heart failure, COPD admitted with complaints of respiratory failure, sepsis, and acute SD. PLAN: Supplemental oxygen. Breathing treatments as needed. Monitor blood gases. Empiric antibiotic therapy to cover for UTI and sepsis. Pulmonary, Cardiology, and Infectious Diseases consultations will be obtained. We will continue patient's seizure medications. Cautious resumption of feedings. Monitor residuals. The patient's overall prognosis is poor. He has a POLST that states that he is DNR. Jorge Kee M.D. DR: Kayla JOB#: [id number] CC:
--- NOTE | 2020-05-07 10:00 | Consultation ---
DATE OF CONSULTATION: 05/06/2020 NOTE: INCOMPLETE DICTATION CARDIOLOGY CONSULTATION CONSULTING PHYSICIAN: Real Magana M.D. REQUESTING PHYSICIAN: Jorge Kee M.D. REASON: Elevated troponin level. HISTORY OF PRESENT ILLNESS: This debilitated male residing at a [place] [facility] facility. He was notably withdrawn and lethargic prompting his transfer. He had a workup in the emergency room that revealed signs of an acute infection and an elevated troponin level prompting this consultation. The patient is unable to give historical data due to his advanced cerebrovascular disease. Records have been reviewed. PAST MEDICAL HISTORY: Includes hypertension, history of congestive heart failure, chronic kidney disease, history of respiratory failure, history of renal failure, seizure disorder, dysphagia with gastrostomy tube, chronic anemia. Advance directives, DNR. ALLERGIES: Penicillin. MEDICATIONS: Reviewed and reconciled. FAMILY HISTORY: Not known. SOCIAL HISTORY: No record of smoking or alcohol use. REVIEW OF SYSTEMS: Not obtainable. PHYSICAL EXAMINATION: VITAL SIGNS: Blood pressure 162/100, pulse 88, respirations 22, afebrile in the emergency room with oxygen saturation of 96%. Subsequent vital signs revealed blood pressure of 134/62, heart rate 67, respiratory rate 22, afebrile. LUNGS: Bilateral breath sounds. Rhonchi. NECK: Jugular venous pressure is grossly normal, but difficult to assess due to some accessory muscle use. CARDIAC: Reveals regular rhythm and rate. Normal S1, S2 with no appreciable murmur, but exam is limited. ABDOMEN: Soft. G-tube intact. EXTREMITIES: Trace edema. NEUROLOGIC: Noncommunicative. Real Magana M.D. DR: LISSETT JOB#: [id number] CC:
[2020-05-07 12:00] VITALS: BP 108/57
--- NOTE | 2020-05-07 14:29 | Diagnostic Imaging Report ---
Indication: Leg pain Technique: Grayscale and duplex images of the bilateral lower extremity veins Comparison: Findings: Bilaterally, grayscale and duplex images demonstrate no evidence of intraluminal thrombus. Normal phasic Doppler waveforms, demonstrating normal augmentation response and no evidence of valvular insufficiency. Greater saphenous vein(s) and tibial veins are patent. Normal compressibility. Impression: Negative for evidence of lower extremity deep venous thrombosis bilaterally
[2020-05-07 16:00] VITALS: BP 109/61
[2020-05-07] MEDS: Cefepime HCl 1 GM in D5W 55 ML IVPB SCH (16:02)
--- NOTE | 2020-05-07 17:15 | Consultation ---
Consult Note Consult Note 80-year-old male presents for follow up. He has history of was transferred from a longterm facility with complaints of shortness of breath. The patient is a poor historian. On evaluation in the emergency room, the patient was hypoxic and placed on a non-rebreather but now on nasal cannula. Laboratories were significant for a elevated troponin of 0.315. [place] [address]. UA showed 10 to 15 wbc's. The patient has been started on broad-spectrum IV antibiotic therapy. He is now admitted to a monitored bed. PAST MEDICAL HISTORY: congestive heart failure, COPD, seizure disorder, dementia, dysphagia, G-tube PAST SURGICAL HISTORY: G-tube. CURRENT MEDICATIONS: Reconciled and reviewed. ALLERGIES: penicillin. FAMILY HISTORY: Noncontributory. SOCIAL HISTORY: Negative for tobacco, ethanol, or drugs. REVIEW OF SYSTEMS: From the patient is unobtainable PHYSICAL EXAMINATION: GENERAL: The patient is a chronic ill-appearing male, in no apparent distress. He is poorly responsive. HEENT: NCAT NECK: Supple. There is no jugular venous distention. HEART: Regular rate and rhythm. without MRG LUNGS: reduced breath sounds with some rhonchi ABDOMEN: Soft, nontender, nondistended. GT EXTREMITIES: No clubbing, cyanosis, or edema. Neuro withdrawn LABORATORY DATA: Labs Test 05/06/20 11:15 05/06/20 11:30 05/06/20 23:20 05/07/20 05:36 White Blood Count 11.2 K/UL (4.8-10.8) 8.4 K/UL (4.8-10.8) Red Blood Count 4.82 M/UL (4.70-6.10) 4.50 M/UL (4.70-6.10) Hemoglobin 15.0 G/DL (14.2-18.0) 13.8 G/DL (14.2-18.0) Hematocrit 47.3 % (42.0-52.0) 44.1 % (42.0-52.0) Mean Corpuscular Volume 98 FL (80-99) 98 FL (80-99) Mean Corpuscular Hemoglobin 31.1 PG (27.0-31.0) 30.7 PG (27.0-31.0) Mean Corpuscular Hemoglobin Concent 31.7 G/DL (32.0-36.0) 31.3 G/DL (32.0-36.0) Red Cell Distribution Width 13.0 % (11.6-14.8) 13.0 % (11.6-14.8) Platelet Count 216 K/UL (150-450) 157 K/UL (150-450) Mean Platelet Volume 10.2 FL (6.5-10.1) 9.7 FL (6.5-10.1) Neutrophils (%) (Auto) 82.8 % (45.0-75.0) 71.0 % (45.0-75.0) Lymphocytes (%) (Auto) 7.4 % (20.0-45.0) 13.4 % (20.0-45.0) Monocytes (%) (Auto) 8.5 % (1.0-10.0) 14.3 % (1.0-10.0) Eosinophils (%) (Auto) 0.4 % (0.0-3.0) 0.5 % (0.0-3.0) Basophils (%) (Auto) 1.0 % (0.0-2.0) 0.8 % (0.0-2.0) D-Dimer 2.16 mg/L FEU (0.00-0.49) Sodium Level 133 MMOL/L (136-145) 134 MMOL/L (136-145) Potassium Level 4.8 MMOL/L (3.5-5.1) 4.7 MMOL/L (3.5-5.1) Chloride Level 90 MMOL/L (98-107) 94 MMOL/L (98-107) Carbon Dioxide Level > 45 MMOL/L (21-32) 43 MMOL/L (21-32) Blood Urea Nitrogen 18 mg/dL (7-18) 12 mg/dL (7-18) Creatinine 0.7 MG/DL (0.55-1.30) 0.6 MG/DL (0.55-1.30) Estimat Glomerular Filtration Rate > 60 mL/min (>60) > 60 mL/min (>60) Glucose Level 159 MG/DL (74-106) 83 MG/DL (74-106) Lactic Acid Level 1.10 mmol/L (0.4-2.0) Calcium Level 8.5 MG/DL (8.5-10.1) 8.4 MG/DL (8.5-10.1) Ferritin 78 NG/ML (8-388) Total Bilirubin 0.4 MG/DL (0.2-1.0) 0.4 MG/DL (0.2-1.0) Aspartate Amino Transf (AST/SGOT) 44 U/L (15-37) 33 U/L (15-37) Alanine Aminotransferase (ALT/SGPT) 76 U/L (12-78) 53 U/L (12-78) Alkaline Phosphatase 122 U/L (46-116) 115 U/L (46-116) Lactate Dehydrogenase 179 U/L (135-225) Total Creatine Kinase 37 U/L (26-140) Creatine Kinase MB 3.4 NG/ML (0.0-3.6) Creatine Kinase MB Relative Index 9.1 Troponin I 0.315 ng/mL (0.000-0.056) 0.125 ng/mL (0.000-0.056) C-Reactive Protein, Quantitative 1.1 mg/dL (0.00-0.90) Total Protein 8.4 G/DL (6.4-8.2) 6.5 G/DL (6.4-8.2) Albumin 3.3 G/DL (3.4-5.0) 2.8 G/DL (3.4-5.0) Globulin 5.1 g/dL 3.7 g/dL Albumin/Globulin Ratio 0.6 (1.0-2.7) 0.8 (1.0-2.7) Urine Color Pale yellow Urine Appearance Clear Urine pH 5 (4.5-8.0) Urine Specific [place] 1.020 (1.005-1.035) Urine Protein Negative (NEGATIVE) Urine Glucose (UA) Negative (NEGATIVE) Urine Ketones 1+ (NEGATIVE) Urine Blood 4+ (NEGATIVE) Urine Nitrite Negative (NEGATIVE) Urine Bilirubin Negative (NEGATIVE) Urine Urobilinogen Normal MG/DL (0.0-1.0) Urine Leukocyte Esterase 1+ (NEGATIVE) Urine RBC 5-10 /HPF (0 - 0) Urine WBC 10-15 /HPF (0 - 0) Urine Squamous Epithelial Cells Occasional /LPF Urine Bacteria Few /HPF (NONE) Arterial Blood pH 7.347 (7.350-7.450) Arterial Blood Partial Pressure CO2 74.6 mmHg (35.0-45.0) Arterial Blood Partial Pressure O2 92.2 mmHg (75.0-100.0) Arterial Blood HCO3 40.0 mmol/L (22.0-26.0) Arterial Blood Oxygen Saturation 97.6 % (95-100) Arterial Blood Base Excess 11.2 (-2-2) Apollo Test Positive Pro-B-Type Natriuretic Peptide 4483 pg/mL (0-125) Thyroid Stimulating Hormone (TSH) 0.890 uiU/mL (0.358-3.740) ASSESSMENT: Pulmonary congestion, respiratory failure, hypoxemia dementia, G-tube, seizure disorder, congestive heart failure, COPD sepsis, and acute ME. PLAN: maintain oxygen. Breathing treatments and aspiration precautions. Monitor blood gases. IV antibiotic therapy. Maintain home meds and monitor with seizure medications. feeds and monitor residuals; DNR DVT prophylaxis impression, plan, and exam edited and reviewed in detail care discussed with Attila Yuan MD May 07, 2020 17:15
--- NOTE | 2020-05-07 17:15 | Pulmonology Progress Note ---
Subjective Allergies: Coded Allergies: PENICILLINS (Unverified Allergy, Unknown, 08/11/19) Objective Last 24 Hour Vital Signs Date Time Temp Pulse Resp B/P (MAP) Pulse Ox O2 Delivery O2 Flow Rate FiO2 05/07/20 16:00 96.5 96 20 109/61 (77) 100 05/07/20 15:41 69 05/07/20 12:00 97.7 90 20 108/57 (74) 100 05/07/20 11:51 80 05/07/20 09:00 Nasal Cannula 1.0 05/07/20 08:36 85 125/76 05/07/20 08:36 85 125/76 05/07/20 07:51 90 05/07/20 07:49 96.9 85 20 125/76 (92) 93 05/07/20 04:00 97.7 91 21 107/70 (82) 94 05/07/20 04:00 91 05/07/20 00:00 81 05/07/20 00:00 97.3 81 22 123/66 (85) 95 05/06/20 21:00 Nasal Cannula 4.0 05/06/20 20:00 97.0 67 22 134/62 (86) 100 05/06/20 20:00 68 05/06/20 18:51 100 Non-Rebreather 15.0 100 Intake and Output 05/06/20 05/07/20 19:00 07:00 Intake Total 195 ml Balance 195 ml Intake Free Water 120 ml IV Total 75 ml # Voids 2 2 Microbiology Date/Time Source Procedure Growth Status 05/06/20 13:49 Rectum Received 05/06/20 11:30 Urine,Clean Catch Urine Culture - Preliminary Gram Negative Abelino Resulted 05/06/20 11:15 Nasopharynx SARS-CoV-2 RdRp Gene Assay - Final Complete Laboratory Tests 05/06/20 23:20: Arterial Blood pH 7.347L, Arterial Blood Partial Pressure CO2 74.6*H, Arterial Blood Partial Pressure O2 92.2, Arterial Blood HCO3 40.0H, Arterial Blood Oxygen Saturation 97.6, Arterial Blood Base Excess 11.2*H, Apollo Test Positive 05/07/20 05:36: White Blood Count 8.4, Red Blood Count 4.50L, Hemoglobin 13.8L, Hematocrit 44.1, Mean Corpuscular Volume 98, Mean Corpuscular Hemoglobin 30.7, Mean Corpuscular Hemoglobin Concent 31.3L, Red Cell Distribution Width 13.0, Platelet Count 157, Mean Platelet Volume 9.7, Neutrophils (%) (Auto) 71.0, Lymphocytes (%) (Auto) 13.4L, Monocytes (%) (Auto) 14.3H, Eosinophils (%) (Auto) 0.5, Basophils (%) (Auto) 0.8, Sodium Level 134L, Potassium Level 4.7, Chloride Level 94L, Carbon Dioxide Level 43*H, Blood Urea Nitrogen 12, Creatinine 0.6, Estimat Glomerular Filtration Rate > 60, Glucose Level 83, Calcium Level 8.4L, Total Bilirubin 0.4, Aspartate Amino Transf (AST/SGOT) 33, Alanine Aminotransferase (ALT/SGPT) 53, Alkaline Phosphatase 115, Troponin I 0.125H, Pro-B-Type Natriuretic Peptide 4483H, Total Protein 6.5, Albumin 2.8L, Globulin 3.7, Albumin/Globulin Ratio 0.8L, Thyroid Stimulating Hormone (TSH) 0.890 Current Medications Medications (Trade) Dose Ordered Sig/Mayela Route PRN Reason Start Time Stop Time Status Last Admin Dose Admin Acetaminophen (Tylenol) 650 mg Q4H PRN GT back pain 05/06/20 15:15 06/05/20 15:14 Amlodipine Besylate (Norvasc) 5 mg DAILY GT 05/07/20 09:00 06/06/20 08:59 05/07/20 08:36 Ascorbic Acid (Vitamin C) 500 mg DAILY GT 05/07/20 09:00 06/06/20 08:59 05/07/20 08:36 Aspirin (ASA) 81 mg DAILY GT 05/07/20 09:00 06/21/20 08:59 05/07/20 08:36 Carvedilol (Coreg) 3.125 mg EVERY 12 HOURS GT 05/07/20 09:00 06/06/20 08:59 05/07/20 08:36 Cefepime HCl 1 gm/ Dextrose 55 ml @ 110 mls/hr Q24H IVPB 05/06/20 17:00 05/13/20 16:59 05/07/20 16:02 Docusate Sodium (Colace) 200 mg BID GT 05/06/20 18:00 06/05/20 17:59 05/07/20 08:36 Levetiracetam (Keppra) 250 mg Q12HR GT 05/06/20 21:00 06/20/20 20:59 05/07/20 08:36 Multivitamins (Multivitamins W/ Minerals 15ml Liquid) 5 ml DAILY GT 05/07/20 09:00 06/06/20 08:59 05/07/20 08:37 Sodium Chloride 1,000 ml @ 75 mls/hr [id number] IV 05/07/20 02:00 06/06/20 01:59 05/07/20 15:57 Tamsulosin HCl (Flomax) 0.4 mg BEDTIME ORAL 05/06/20 21:00 06/05/20 20:59 05/06/20 21:31 Vancomycin HCl (Vanco pharmacy to dose) 1 ea DAILY PRN MISC Per rx protocol 05/06/20 15:15 06/05/20 15:14 Vancomycin HCl 500 mg/Sodium Chloride 110 ml @ 110 mls/hr Q12HR@0600,1800 IVPB 05/06/20 18:00 05/11/20 17:59 05/07/20 05:38 Attila Easley MD May 07, 2020 17:15
[2020-05-07 20:00] VITALS: BP 125/67
[2020-05-07] MEDS: Tamsulosin 0.4mg cap ORAL SCH (21:12)
[2020-05-08] VITALS: BP 137/77
[2020-05-08 04:00] VITALS: BP 147/87
[2020-05-08 04:40] LABS: EOSINOPHILS % (AUTO) 0.6 % (0.0-3.0); HEMATOCRIT 38.2 % (42.0-52.0); HEMOGLOBIN 12.6 G/DL (14.2-18.0); LYMPHOCYTES % (AUTO) 20.7 % (20.0-45.0); MEAN CORPUSCULAR VOLUME 97 FL (80-99); MONOCYTES % (AUTO) 10.8 % (1.0-10.0); NEUTROPHILS % (AUTO) 65.8 % (45.0-75.0); PLATELET COUNT 136 K/UL (150-450); RED BLOOD COUNT 3.93 M/UL (4.70-6.10); RED CELL DISTRIBUTION WIDTH 13.7 % (11.6-14.8); WHITE BLOOD COUNT 7.3 K/UL (4.8-10.8)
[2020-05-08 05:28] LABS: ALANINE AMINOTRANSFERASE 43 U/L (12-78); ALBUMIN 2.4 G/DL (3.4-5.0); ALBUMIN/GLOBULIN RATIO 0.7 (1.0-2.7); ALKALINE PHOSPHATASE 99 U/L (46-116); ANION GAP 0 mmol/L (5-15); ASPARTATE AMINO TRANSFERASE 51 U/L (15-37); BILIRUBIN,TOTAL 0.4 MG/DL (0.2-1.0); BLOOD UREA NITROGEN 11 mg/dL (7-18); CALCIUM 7.7 MG/DL (8.5-10.1); CARBON DIOXIDE 36 MMOL/L (21-32); CHLORIDE 96 MMOL/L (98-107); CREATININE 0.3 MG/DL (0.55-1.30); POTASSIUM 5.2 MMOL/L (3.5-5.1); SODIUM 132 MMOL/L (136-145)
[2020-05-08] MEDS: Vancomycin 750mg/D5W 275ml IVPB SCH ×6 (06:20→21:44)
--- NOTE | 2020-05-08 07:13 | General Progress Note ---
Subjective ROS Limited/Unobtainable: No Constitutional: Reports: malaise, weakness HEENT: Reports: no symptoms Cardiovascular: Reports: no symptoms Respiratory: Reports: shortness of breath Gastrointestinal/Abdominal: Reports: difficulty swallowing Genitourinary: Reports: no symptoms Neurologic/Psychiatric: Reports: anxiety, emotional problems, pre-existing deficit Endocrine: Reports: no symptoms Hematologic/Lymphatic: Reports: no symptoms Allergies: Coded Allergies: PENICILLINS (Unverified Allergy, Unknown, 08/11/19) All Systems: reviewed and negative except above Subjective no events. stable. more alert. confused and intermittently agitated. high K and sodium. no reports of szs. tolerating feeds. Objective Last 24 Hour Vital Signs Date Time Temp Pulse Resp B/P (MAP) Pulse Ox O2 Delivery O2 Flow Rate FiO2 05/08/20 04:00 97.0 90 24 147/87 (107) 94 05/08/20 04:00 99 05/08/20 00:00 82 05/08/20 00:00 97.7 83 21 137/77 (97) 96 05/07/20 21:13 96 125/67 05/07/20 21:00 Nasal Cannula 1.0 05/07/20 20:00 97.9 93 21 125/67 (86) 96 05/07/20 20:00 92 05/07/20 19:38 98 Nasal Cannula 1.0 24 05/07/20 16:00 96.5 96 20 109/61 (77) 100 05/07/20 15:41 69 05/07/20 12:00 97.7 90 20 108/57 (74) 100 05/07/20 11:51 80 05/07/20 09:00 Nasal Cannula 1.0 05/07/20 08:36 85 125/76 05/07/20 08:36 85 125/76 05/07/20 07:51 90 05/07/20 07:49 96.9 85 20 125/76 (92) 93 Intake and Output 05/07/20 05/08/20 18:59 06:59 Intake Total 1395 ml 485 ml Balance 1395 ml 485 ml Intake Free Water 150 ml 225 ml IV Total 1065 ml Tube Feeding 180 ml 260 ml # Voids 2 # Bowel Movements 1 Laboratory Tests 05/08/20 04:00: White Blood Count 7.3, Red Blood Count 3.93L, Hemoglobin 12.6L, Hematocrit 38.2L , Mean Corpuscular Volume 97, Mean Corpuscular Hemoglobin 32.1H, Mean Corpuscular Hemoglobin Concent 33.0, Red Cell Distribution Width 13.7, Platelet Count 136L, Mean Platelet Volume 11.8H, Neutrophils (%) (Auto) 65.8, Lymphocytes (%) (Auto) 20.7, Monocytes (%) (Auto) 10.8H, Eosinophils (%) (Auto) 0.6, Basophils (%) (Auto) 2.0, Sodium Level 132L, Potassium Level 5.2H, Chloride Level 96L, Carbon Dioxide Level 36H, Anion Gap 0L, Blood Urea Nitrogen 11, Creatinine 0.3L, Estimat Glomerular Filtration Rate > 60, Glucose Level 107H, Calcium Level 7.7L, Total Bilirubin 0.4, Aspartate Amino Transf (AST/SGOT) 51H, Alanine Aminotransferase (ALT/SGPT) 43, Alkaline Phosphatase 99, Total Protein 5.7L, Albumin 2.4L, Globulin 3.3, Albumin/Globulin Ratio 0.7L, Vancomycin Level Trough 8.0 Height (Feet): 5 Height (Inches): 6.00 Weight (Pounds): 137 General Appearance: WD/WN, alert, confused EENT: normal ENT inspection Neck: normal alignment Cardiovascular: normal rate Respiratory/Chest: chest wall non-tender, lungs clear, normal breath sounds Abdomen: normal bowel sounds, non tender, soft, no organomegaly Edema: no edema noted Arm (L), no edema noted Arm (R) Neurologic: alert, disoriented Assessment/Plan Problem List: (1) Seizure ICD Codes: R56.9 - Unspecified convulsions SNOMED: 59467913 (2) Dysphagia ICD Codes: R13.10 - Dysphagia, unspecified SNOMED: 84453854, 584800298 (3) UTI (urinary tract infection) ICD Codes: N39.0 - Urinary tract infection, site not specified SNOMED: 51610244 (4) Elevated troponin I level ICD Codes: R77.8 - Other specified abnormalities of plasma proteins SNOMED: 471487500 (5) AMS (altered mental status) ICD Codes: R41.82 - Altered mental status, unspecified SNOMED: 846750001 (6) NSTEMI (non-ST elevated myocardial infarction) ICD Codes: I21.4 - Non-ST elevation (NSTEMI) myocardial infarction SNOMED: 11718907 Status: stable Assessment/Plan: kayexylate x 1 cont ivf- decreased increased feeds sz rx iv abx monitor labs anxiolytics sz rx o2 resp rx dvt/stress ulcer prophylaxis. Jorge Kee MD May 08, 2020 07:13
[2020-05-08] MEDS ORDERED: Sodium Polystyrene Sulfonate 15gm Powder ORAL SCH (07:30)
[2020-05-08 08:00] VITALS: BP 152/82
--- NOTE | 2020-05-08 08:51 | Pulmonology Progress Note ---
Subjective ROS Limited/Unobtainable: No Allergies: Coded Allergies: PENICILLINS (Unverified Allergy, Unknown, 08/11/19) All Systems: reviewed and negative except above Subjective care noted mild cough Objective Last 24 Hour Vital Signs Date Time Temp Pulse Resp B/P (MAP) Pulse Ox O2 Delivery O2 Flow Rate FiO2 05/08/20 08:00 98.7 81 18 152/82 (105) 95 05/08/20 04:00 97.0 90 24 147/87 (107) 94 05/08/20 04:00 99 05/08/20 00:00 82 05/08/20 00:00 97.7 83 21 137/77 (97) 96 05/07/20 21:13 96 125/67 05/07/20 21:00 Nasal Cannula 1.0 05/07/20 20:00 97.9 93 21 125/67 (86) 96 05/07/20 20:00 92 05/07/20 19:38 98 Nasal Cannula 1.0 24 05/07/20 16:00 96.5 96 20 109/61 (77) 100 05/07/20 15:41 69 05/07/20 12:00 97.7 90 20 108/57 (74) 100 05/07/20 11:51 80 05/07/20 09:00 Nasal Cannula 1.0 Intake and Output 05/07/20 05/08/20 19:00 07:00 Intake Total 1340 ml 465 ml Balance 1340 ml 465 ml Intake Free Water 150 ml 225 ml IV Total 990 ml Tube Feeding 200 ml 240 ml # Voids 2 # Bowel Movements 1 Objective WDWN NAD reduced breath sounds bilaterally with some rhonchi [id number] without MRG NABS nontender no CC some edema nonfocal Microbiology Date/Time Source Procedure Growth Status 05/06/20 13:49 Rectum VRE Culture - Final NO VANCOMYCIN RESISTANT ENTEROCOCCUS ... Complete 05/06/20 13:49 Rectum - Final NO CARBAPENEM-RESISTANT ENTEROBACTERI... Complete 05/06/20 13:49 Nasal Nares MRSA Culture - Final Staphylococcus Aureus - Mrsa Complete 05/06/20 11:30 Urine,Clean Catch Urine Culture - Final Escherichia Coli Complete 05/06/20 11:15 Nasopharynx SARS-CoV-2 RdRp Gene Assay - Final Complete 05/06/20 11:15 Blood Blood Culture - Preliminary NO GROWTH AFTER 24 HOURS Resulted 05/06/20 11:15 Blood Blood Culture - Preliminary NO GROWTH AFTER 24 HOURS Resulted Laboratory Tests 05/08/20 04:00: White Blood Count 7.3, Red Blood Count 3.93L, Hemoglobin 12.6L, Hematocrit 38.2L , Mean Corpuscular Volume 97, Mean Corpuscular Hemoglobin 32.1H, Mean C orpuscular Hemoglobin Concent 33.0, Red Cell Distribution Width 13.7, Platelet Count 136L, Mean Platelet Volume 11.8H, Neutrophils (%) (Auto) 65.8, Lymphocytes (%) (Auto) 20.7, Monocytes (%) (Auto) 10.8H, Eosinophils (%) (Auto) 0.6, Basophils (%) (Auto) 2.0, Sodium Level 132L, Potassium Level 5.2H, Chloride Level 96L, Carbon Dioxide Level 36H, Anion Gap 0L, Blood Urea Nitrogen 11, Creatinine 0.3L, Estimat Glomerular Filtration Rate > 60, Glucose Level 107H, Calcium Level 7.7L, Total Bilirubin 0.4, Aspartate Amino Transf (AST/SGOT) 51H, Alanine Aminotransferase (ALT/SGPT) 43, Alkaline Phosphatase 99, Total Protein 5.7L, Albumin 2.4L, Globulin 3.3, Albumin/Globulin Ratio 0.7L, Vancomycin Level Trough 8.0 Current Medications Medications (Trade) Dose Ordered Sig/Mayela Route PRN Reason Start Time Stop Time Status Last Admin Dose Admin Acetaminophen (Tylenol) 650 mg Q4H PRN GT back pain 05/06/20 15:15 06/05/20 15:14 Amlodipine Besylate (Norvasc) 5 mg DAILY GT 05/07/20 09:00 06/06/20 08:59 05/07/20 08:36 Ascorbic Acid (Vitamin C) 500 mg DAILY GT 05/07/20 09:00 06/06/20 08:59 05/07/20 08:36 Aspirin (ASA) 81 mg DAILY GT 05/07/20 09:00 06/21/20 08:59 05/07/20 08:36 Carvedilol (Coreg) 3.125 mg EVERY 12 HOURS GT 05/07/20 09:00 06/06/20 08:59 05/07/20 21:13 Cefepime HCl 1 gm/ Dextrose 55 ml @ 110 mls/hr Q24H IVPB 05/06/20 17:00 05/13/20 16:59 05/07/20 16:02 Docusate Sodium (Colace) 200 mg BID GT 05/06/20 18:00 06/05/20 17:59 05/07/20 17:11 Heparin Sodium (Porcine) (Heparin 5000 units/ml) 5,000 units EVERY 12 HOURS SUBQ 05/08/20 09:00 06/22/20 08:59 Levetiracetam (Keppra) 250 mg Q12HR GT 05/06/20 21:00 06/20/20 20:59 05/07/20 21:16 Multivitamins (Multivitamins W/ Minerals 15ml Liquid) 5 ml DAILY GT 05/07/20 09:00 06/06/20 08:59 05/07/20 08:37 Sodium Chloride 1,000 ml @ 50 mls/hr Q20H IV 05/07/20 02:00 06/06/20 01:59 05/08/20 04:19 Tamsulosin HCl (Flomax) 0.4 mg BEDTIME ORAL 05/06/20 21:00 06/05/20 20:59 05/07/20 21:12 Vancomycin HCl (Vanco pharmacy to dose) 1 ea DAILY PRN MISC Per rx protocol 05/06/20 15:15 06/05/20 15:14 Vancomycin HCl 750 mg/Dextrose 275 ml @ 183.333 mls/hr Q8H IVPB 05/08/20 06:00 05/13/20 05:59 05/08/20 06:20 Assessment/Plan Assessment/Plan ASSESSMENT: Pulmonary congestion, respiratory failure, hypoxemia dementia, G-tube, seizure disorder, congestive heart failure, COPD sepsis, and acute VT. PLAN: maintain oxygen. Breathing treatments and aspiration precautions. Monitor blood gases. IV antibiotic therapy. Maintain home meds and monitor with seizure medications. feeds and monitor residuals; DNR DVT prophylaxis continue as is monitor lytes and correct impression, plan, and exam edited and reviewed in detail care discussed with Attila Yuan MD May 08, 2020 08:51
[2020-05-08] MEDS: Heparin 5000 units/ml inj SUBQ SCH ×2 (09:00→20:24)
[2020-05-08] MEDS: Docusate 100mg/10ml Liq GT SCH ×2 (09:26→17:40)
[2020-05-08] MEDS: Multivitamins W/Minerals 15 ML UDC GT SCH (09:27)
[2020-05-08] MEDS: Ascorbic Acid 500mg tab GT SCH (09:27)
[2020-05-08] MEDS: Aspirin Baby 81mg GT SCH (09:27)
[2020-05-08] MEDS: levETIRAcetam 500mg/5ml Liquid GT SCH ×2 (09:28→20:23)
[2020-05-08 12:00] VITALS: BP 156/75
[2020-05-08 16:00] VITALS: BP 161/88
[2020-05-08] MEDS: Cefepime HCl 1 GM in D5W 55 ML IVPB SCH (17:41)
[2020-05-08 20:00] VITALS: BP 138/85
[2020-05-08] MEDS: Tamsulosin 0.4mg cap ORAL SCH (20:23)
[2020-05-09] VITALS: BP 137/73
[2020-05-09 04:00] VITALS: BP 127/70
[2020-05-09 05:25] LABS: ANION GAP -2 mmol/L (5-15); BLOOD UREA NITROGEN 10 mg/dL (7-18); CALCIUM 7.8 MG/DL (8.5-10.1); CHLORIDE 90 MMOL/L (98-107); CREATININE 0.6 MG/DL (0.55-1.30); POTASSIUM 2.9 MMOL/L (3.5-5.1); SODIUM 131 MMOL/L (136-145)
[2020-05-09 05:29] LABS: CARBON DIOXIDE 45 MMOL/L (21-32)
[2020-05-09] MEDS: Vancomycin 750mg/D5W 275ml IVPB SCH ×6 (05:38→22:03)
[2020-05-09] MEDS: Heparin 5000 units/ml inj SUBQ SCH ×2 (07:09→20:10)
--- NOTE | 2020-05-09 07:20 | General Progress Note ---
Subjective ROS Limited/Unobtainable: No Constitutional: Reports: malaise, weakness HEENT: Reports: no symptoms Cardiovascular: Reports: no symptoms Respiratory: Reports: shortness of breath, sputum Gastrointestinal/Abdominal: Reports: difficulty swallowing Genitourinary: Reports: no symptoms Neurologic/Psychiatric: Reports: pre-existing deficit, seizure Endocrine: Reports: no symptoms Hematologic/Lymphatic: Reports: anemia Allergies: Coded Allergies: PENICILLINS (Unverified Allergy, Unknown, 08/11/19) All Systems: reviewed and negative except above Subjective no events. stable. more alert. confused and intermittently agitated. low k noted. no reports of szs. tolerating feeds. Objective Last 24 Hour Vital Signs Date Time Temp Pulse Resp B/P (MAP) Pulse Ox O2 Delivery O2 Flow Rate FiO2 05/09/20 04:00 90 05/09/20 04:00 97.5 88 35 127/70 (89) 92 05/09/20 00:00 98 05/09/20 00:00 97.7 100 35 137/73 (94) 99 05/08/20 21:43 95 Venturi Mask 10.0 50 05/08/20 21:00 Nasal Cannula 1.0 05/08/20 20:23 99 164/90 05/08/20 20:00 89 05/08/20 20:00 97.5 99 30 138/85 (102) 91 05/08/20 16:00 93 05/08/20 16:00 97.9 89 18 161/88 (112) 99 05/08/20 12:00 97.5 86 19 156/75 (102) 99 05/08/20 12:00 87 05/08/20 09:27 81 152/82 05/08/20 09:27 81 152/82 05/08/20 09:00 Nasal Cannula 1.0 05/08/20 08:00 98.7 81 18 152/82 (105) 95 05/08/20 08:00 83 Intake and Output 05/08/20 05/09/20 19:00 07:00 Output Total 1500 ml 700 ml Balance -1500 ml -700 ml Output Urine Total 1500 ml 700 ml # Voids 1 # Bowel Movements 1 Laboratory Tests 05/09/20 05:00: Sodium Level 131L, Potassium Level 2.9L, Chloride Level 90L, Carbon Dioxide Level 45*H, Anion Gap -2L, Blood Urea Nitrogen 10, Creatinine 0.6#, Estimat Glomerular Filtration Rate > 60, Glucose Level 156H, Calcium Level 7.8L, Vancomycin Level Trough 16.5H Height (Feet): 5 Height (Inches): 6.00 Weight (Pounds): 137 Objective General Appearance: WD/WN, alert, confused EENT: normal ENT inspection Neck: normal alignment Cardiovascular: normal rate Respiratory/Chest: chest wall non-tender, lungs clear, normal breath sounds Abdomen: normal bowel sounds, non tender, soft, no organomegaly Edema: no edema noted Arm (L), no edema noted Arm (R) Neurologic: alert, disoriented Assessment/Plan Problem List: (1) Seizure ICD Codes: R56.9 - Unspecified convulsions SNOMED: 57170497 (2) Dysphagia ICD Codes: R13.10 - Dysphagia, unspecified SNOMED: 66673283, 446951487 (3) UTI (urinary tract infection) ICD Codes: N39.0 - Urinary tract infection, site not specified SNOMED: 75627008 (4) Elevated troponin I level ICD Codes: R77.8 - Other specified abnormalities of plasma proteins SNOMED: 877379748 (5) AMS (altered mental status) ICD Codes: R41.82 - Altered mental status, unspecified SNOMED: 402524708 (6) NSTEMI (non-ST elevated myocardial infarction) ICD Codes: I21.4 - Non-ST elevation (NSTEMI) myocardial infarction SNOMED: 28362135 Status: stable Assessment/Plan: replace k ivf as needed increased feeds sz rx. sz precautions iv abx monitor labs anxiolytics as needed o2 resp rx check abg dvt/stress ulcer prophylaxis. Jorge Kee MD May 09, 2020 07:20
[2020-05-09 08:00] VITALS: BP 137/80
[2020-05-09] MEDS ORDERED: ONE DAILY PLUS1 EAC1 GT (09:13)
[2020-05-09] MEDS ORDERED: PERIGUARD OINT100 GM TP (09:15)
[2020-05-09] MEDS: Docusate 100mg/10ml Liq GT SCH ×2 (09:52→17:16)
[2020-05-09] MEDS: Multivitamins W/Minerals 15 ML UDC GT SCH (09:53)
[2020-05-09] MEDS: Aspirin Baby 81mg GT SCH (09:53)
[2020-05-09] MEDS: levETIRAcetam 500mg/5ml Liquid GT SCH ×2 (09:53→20:10)
[2020-05-09] MEDS: Ascorbic Acid 500mg tab GT SCH (09:54)
--- NOTE | 2020-05-09 10:02 | Pulmonology Progress Note ---
Subjective ROS Limited/Unobtainable: No Allergies: Coded Allergies: PENICILLINS (Unverified Allergy, Unknown, 08/11/19) All Systems: reviewed and negative except above Subjective care noted more confused significant CO2 retention noted BIPAP ordered by Dr. Kee Objective Last 24 Hour Vital Signs Date Time Temp Pulse Resp B/P (MAP) Pulse Ox O2 Delivery O2 Flow Rate FiO2 05/09/20 09:58 91 137/80 05/09/20 09:54 91 137/80 05/09/20 08:00 91 05/09/20 08:00 96.3 87 30 137/80 (99) 97 05/09/20 06:50 97 Nasal Cannula 4.0 36 05/09/20 04:00 90 05/09/20 04:00 97.5 88 35 127/70 (89) 92 05/09/20 00:00 98 05/09/20 00:00 97.7 100 35 137/73 (94) 99 05/08/20 21:43 95 Venturi Mask 10.0 50 05/08/20 21:00 Nasal Cannula 1.0 05/08/20 20:23 99 164/90 05/08/20 20:00 89 05/08/20 20:00 97.5 99 30 138/85 (102) 91 05/08/20 16:00 93 05/08/20 16:00 97.9 89 18 161/88 (112) 99 05/08/20 12:00 97.5 86 19 156/75 (102) 99 05/08/20 12:00 87 Intake and Output 05/08/20 05/09/20 19:00 07:00 Output Total 1500 ml 700 ml Balance -1500 ml -700 ml Output Urine Total 1500 ml 700 ml # Voids 1 # Bowel Movements 1 Objective WDWN NAD reduced breath sounds bilaterally with some rhonchi [id number] without MRG NABS nontender no CC some edema nonfocal Microbiology Date/Time Source Procedure Growth Status 05/06/20 13:49 Rectum VRE Culture - Final NO VANCOMYCIN RESISTANT ENTEROCOCCUS ... Complete 05/06/20 13:49 Rectum - Final NO CARBAPENEM-RESISTANT ENTEROBACTERI... Complete 05/06/20 13:49 Nasal Nares MRSA Culture - Final Staphylococcus Aureus - Mrsa Complete 05/06/20 11:30 Urine,Clean Catch Urine Culture - Final Escherichia Coli Complete 05/06/20 11:15 Nasopharynx SARS-CoV-2 RdRp Gene Assay - Final Complete 05/06/20 11:15 Blood Blood Culture - Preliminary NO GROWTH AFTER 48 HOURS Resulted 05/06/20 11:15 Blood Blood Culture - Preliminary NO GROWTH AFTER 48 HOURS Resulted Laboratory Tests 05/09/20 05:00: Sodium Level 131L, Potassium Level 2.9L, Chloride Level 90L, Carbon Dioxide Level 45*H, Anion Gap -2L, Blood Urea Nitrogen 10, Creatinine 0.6#, Estimat Glomerular Filtration Rate > 60, Glucose Level 156H, Calcium Level 7.8L, Vancomycin Level Trough 16.5H 05/09/20 07:50: Arterial Blood pH 7.228*L, Arterial Blood Partial Pressure CO2 101.7*H, Arterial Blood Partial Pressure O2 144.2H, Arterial Blood HCO3 41.4*H, Arterial Blood Oxygen Saturation 98.6, Arterial Blood Base Excess 9.7*H, Apollo Test Positive Current Medications Medications (Trade) Dose Ordered Sig/Mayela Route PRN Reason Start Time Stop Time Status Last Admin Dose Admin Acetaminophen (Tylenol) 650 mg Q4H PRN GT back pain 05/06/20 15:15 06/05/20 15:14 Amlodipine Besylate (Norvasc) 5 mg DAILY GT 05/07/20 09:00 06/06/20 08:59 05/09/20 09:54 Ascorbic Acid (Vitamin C) 500 mg DAILY GT 05/07/20 09:00 06/06/20 08:59 05/09/20 09:54 Aspirin (ASA) 81 mg DAILY GT 05/07/20 09:00 06/21/20 08:59 05/09/20 09:53 Carvedilol (Coreg) 3.125 mg EVERY 12 HOURS GT 05/07/20 09:00 06/06/20 08:59 05/09/20 09:58 Cefepime HCl 1 gm/ Dextrose 55 ml @ 110 mls/hr Q24H IVPB 05/06/20 17:00 05/13/20 16:59 05/08/20 17:41 Clonidine HCl (Catapres Tab) 0.1 mg Q4H PRN ORAL SBP >160 05/08/20 22:15 08/06/20 22:14 Docusate Sodium (Colace) 200 mg BID GT 05/06/20 18:00 06/05/20 17:59 05/09/20 09:52 Heparin Sodium (Porcine) (Heparin 5000 units/ml) 5,000 units EVERY 12 HOURS SUBQ 05/08/20 09:00 06/22/20 08:59 Levetiracetam (Keppra) 250 mg Q12HR GT 05/06/20 21:00 06/20/20 20:59 05/09/20 09:53 Multivitamins (Multivitamins W/ Minerals 15ml Liquid) 5 ml DAILY GT 05/07/20 09:00 06/06/20 08:59 05/09/20 09:53 Potassium Chloride (K-Dur) 40 meq ONCE GT 05/09/20 10:45 05/09/20 11:45 05/09/20 09:58 Sodium Chloride 1,000 ml @ 50 mls/hr Q20H IV 05/07/20 02:00 06/06/20 01:59 05/09/20 01:04 Tamsulosin HCl (Flomax) 0.4 mg BEDTIME ORAL 05/06/20 21:00 06/05/20 20:59 05/08/20 20:23 Vancomycin HCl (Vanco pharmacy to dose) 1 ea DAILY PRN MISC Per rx protocol 05/06/20 15:15 06/05/20 15:14 Vancomycin HCl 750 mg/Dextrose 275 ml @ 183.333 mls/hr Q8H IVPB 05/08/20 06:00 05/13/20 05:59 05/09/20 05:38 Assessment/Plan Assessment/Plan ASSESSMENT: Pulmonary congestion, respiratory failure, hypoxemia dementia, G-tube, seizure disorder, congestive heart failure, COPD sepsis, and acute IN. acute on chronic CO2 retention PLAN: maintain oxygen and start BIPAP and repeat ABG. Breathing treatments and aspiration precautions. Monitor blood gases post BIPAP. IV antibiotic therapy. Maintain home meds and monitor with seizure medications. feeds and monitor residuals; DNR noted DVT prophylaxis continue as is monitor lytes and correct consider transfer to [facility] impression, plan, and exam edited and reviewed in detail care discussed with Attila Yuan MD May 09, 2020 10:02
[2020-05-09] MEDS: cefTRIAXone 1 GM in D5W 55 ML IVPB SCH (11:11)
[2020-05-09 12:00] VITALS: BP 97/63
--- NOTE | 2020-05-09 13:00 | Consultation ---
DATE OF CONSULTATION: 05/09/2020 INFECTIOUS DISEASE CONSULTATION CONSULTING PHYSICIAN: Josué Light MD. REFERRING PHYSICIAN: Jorge Kee MD. REASON FOR CONSULTATION: Urinary tract infection and pneumonia. HISTORY OF PRESENTING ILLNESS: This is an 80-year-old gentleman with history of COPD, CHF, seizures, dementia, status post G-tube, was transferred from a snf facility with shortness of breath. He was found to have urinary tract infection. There was a concern for pneumonia and an Infectious Diseases consultation has been obtained for antibiotics. PAST MEDICAL HISTORY: 1. History of CHF 2. COPD. 3. Seizures. 4. Dementia. 5. Status post G-tube placement. SOCIAL HISTORY: No history of smoking, alcohol, or drug use. FAMILY HISTORY: Noncontributory. REVIEW OF SYSTEMS: Unable to obtain currently. MEDICATIONS: As an inpatient, he is on potassium, clonidine, subcutaneous heparin, IV vancomycin, amlodipine, Coreg, aspirin, multivitamin, ascorbic acid, Flomax, Keppra, docusate, cefepime, Tylenol. ALLERGIES: To penicillin noted. PHYSICAL EXAMINATION: VITAL SIGNS: Temperature 96.3, T-max of 98.7, pulse 91, respiratory rate 30, blood pressure 137/80. O2 saturation of 97% on a BiPAP with FiO2 of 36%. HEENT: Pupils are equally reactive to light and accommodation. Mouth appears clean without thrush. NECK: Supple. No adenopathy. No JVD. CARDIOVASCULAR: Regular rate and rhythm. No murmurs. LUNGS: Clear to auscultation bilaterally. No crackles. No wheezes. ABDOMEN: Soft, nontender. G-tube site appears clean. EXTREMITIES: No cyanosis, no clubbing, no edema. LABORATORY AND DIAGNOSTIC DATA: White count 7.3, hemoglobin 12.6, hematocrit 38.2, MCV 97, platelet count of 136,000 with neutrophils of 65%. Sodium 131, potassium 2.9, chloride 90, bicarb of 45, BUN 10, creatinine 0.6. Glucose 156. Calcium 7.8. Total bilirubin 0.4, AST 51, ALT 43, and alkaline phosphatase 99. Total protein 5.7, albumin 2.4. UA is showing 10 to 15 white cells. Blood cultures are negative. 05/06/2020, COVID-19 test is negative. Urine culture is growing E. coli, susceptible to cefepime, ceftriaxone, piperacillin and tazobactam. Nasal cultures were positive for MRSA. Rectal swab was negative for VRE. Chest x-ray is showing left base pleural thickening. No acute infiltrates, effusions, or congestion. CT head showing chronic age-related changes, prior right temporoparietal craniotomy with encephalomalacia. Negative for bleed or mass effect. Bilateral sphenoid sinus disease with air-fluid levels. Ultrasound of legs showed no evidence of DVT ASSESSMENT: This is an 80-year-old gentleman with history of congestive heart failure, chronic obstructive pulmonary disease, seizure disorder, and dementia, who comes in with shortness of breath and is found to have, 1. Urinary tract infection with E. coli. 2. MRSA nasal colonization. 3. CHF. 4. COPD. 5. Seizures. 6. Dementia. 7. He is negative for COVID-19. PLAN: 1. Discontinue vancomycin and cefepime. 2. We will start the patient on ceftriaxone and continue 3 more days. 3. We will follow up cultures. I would like to thank Dr. Kee for this consultation. Josué Light M.D. DR: WATSON JOB#: [id number] CC:
[2020-05-09 16:00] VITALS: BP 107/57
[2020-05-09] MEDS ORDERED: Tubing IV Secondary IV ONE ×2 (18:30→21:40)
[2020-05-09] MEDS ORDERED: NS 275ml ONE (18:30)
[2020-05-09 20:00] VITALS: BP_SYST 121; BP_SYST 95; BP_DIAS 52; BP_DIAS 53
[2020-05-09] MEDS: Tamsulosin 0.4mg cap ORAL SCH (20:08)
[2020-05-10] VITALS: BP 127/55
[2020-05-10 04:00] VITALS: BP 128/75
[2020-05-10] MEDS: Vancomycin 750mg/D5W 275ml IVPB SCH ×2 (05:21)
[2020-05-10 05:31] LABS: ALANINE AMINOTRANSFERASE 27 U/L (12-78); ALBUMIN 2.2 G/DL (3.4-5.0); ALBUMIN/GLOBULIN RATIO 0.7 (1.0-2.7); ALKALINE PHOSPHATASE 83 U/L (46-116); ASPARTATE AMINO TRANSFERASE 19 U/L (15-37); BILIRUBIN,TOTAL 0.2 MG/DL (0.2-1.0); BLOOD UREA NITROGEN 16 mg/dL (7-18); CHLORIDE 95 MMOL/L (98-107); CREATININE 0.7 MG/DL (0.55-1.30); POTASSIUM 3.7 MMOL/L (3.5-5.1); SODIUM 133 MMOL/L (136-145)
[2020-05-10 05:42] LABS: CARBON DIOXIDE 43 MMOL/L (21-32)
[2020-05-10 06:23] LABS: BASOPHILS % (AUTO) 1.5 % (0.0-2.0); EOSINOPHILS % (AUTO) 0.7 % (0.0-3.0); HEMATOCRIT 35.4 % (42.0-52.0); HEMOGLOBIN 11.6 G/DL (14.2-18.0); LYMPHOCYTES % (AUTO) 18.4 % (20.0-45.0); MEAN CORPUSCULAR VOLUME 97 FL (80-99); MONOCYTES % (AUTO) 12.8 % (1.0-10.0); NEUTROPHILS % (AUTO) 66.6 % (45.0-75.0); PLATELET COUNT 137 K/UL (150-450); RED BLOOD COUNT 3.65 M/UL (4.70-6.10); RED CELL DISTRIBUTION WIDTH 13.1 % (11.6-14.8); WHITE BLOOD COUNT 8.9 K/UL (4.8-10.8)
[2020-05-10 08:00] VITALS: BP 111/60
--- NOTE | 2020-05-10 08:04 | General Progress Note ---
Subjective ROS Limited/Unobtainable: No Constitutional: Reports: malaise, weakness HEENT: Reports: no symptoms Cardiovascular: Reports: no symptoms Respiratory: Reports: cough, shortness of breath Gastrointestinal/Abdominal: Reports: difficulty swallowing Genitourinary: Reports: no symptoms Neurologic/Psychiatric: Reports: anxiety, emotional problems, pre-existing deficit Endocrine: Reports: no symptoms Hematologic/Lymphatic: Reports: no symptoms Allergies: Coded Allergies: PENICILLINS (Unverified Allergy, Unknown, 08/11/19) All Systems: reviewed and negative except above Subjective placed on bipap for severe hypercapnea. abg improving. currently resting. no fevers. no szs, on tube feeds. Objective Last 24 Hour Vital Signs Date Time Temp Pulse Resp B/P (MAP) Pulse Ox O2 Delivery O2 Flow Rate FiO2 05/10/20 07:43 100 Bi-Pap 40 05/10/20 07:43 78 27 100 40 05/10/20 04:33 63 12 99 40 05/10/20 04:00 98.4 81 28 128/75 (92) 97 05/10/20 04:00 81 05/10/20 02:55 83 18 99 40 05/10/20 00:59 60 12 100 40 05/10/20 00:00 98.1 68 12 127/55 (79) 99 05/10/20 00:00 79 05/09/20 22:52 72 18 99 40 05/09/20 21:00 Bi-pap 05/09/20 20:59 73 18 99 40 05/09/20 20:09 69 121/52 05/09/20 20:00 99.3 89 14 121/52 (75) 99 05/09/20 20:00 88 05/09/20 18:42 51 18 99 40 05/09/20 18:41 100 Bi-Pap 40 05/09/20 16:35 60 13 99 40 05/09/20 16:00 97.9 89 20 107/57 (74) 99 05/09/20 16:00 86 05/09/20 15:05 69 14 98 40 05/09/20 12:40 83 20 97 40 05/09/20 12:00 64 05/09/20 12:00 96.8 65 22 97/63 (74) 100 05/09/20 11:52 40 10/30/20 10:35 67 13 100 30 05/09/20 09:58 91 137/80 05/09/20 09:54 91 137/80 05/09/20 09:00 77 18 100 50 05/09/20 09:00 Bi-pap 05/09/20 09:00 77 18 100 Bi-Pap 50 Intake and Output 05/09/20 05/10/20 19:00 07:00 Output Total 200 ml 700 ml Balance -200 ml -700 ml Output Urine Total 200 ml 700 ml # Voids 1 Laboratory Tests 05/09/20 09:50: Arterial Blood pH 7.199*L, Arterial Blood Partial Pressure CO2 121.4*H, Arterial Blood Partial Pressure O2 123.1H, Arterial Blood HCO3 46.3*H, Arterial Blood Oxygen Saturation 98.0, Arterial Blood Base Excess 13.1*H, Apollo Test Positive 05/09/20 11:30: Arterial Blood pH 7.277L, Arterial Blood Partial Pressure CO2 92.9*H, Arterial Blood Partial Pressure O2 63.3L, Arterial Blood HCO3 42.4*H, Arterial Blood Oxygen Saturation 91.8L, Arterial Blood Base Excess 11.8*H, Apollo Test Positive 05/10/20 04:25: White Blood Count 8.9, Red Blood Count 3.65L, Hemoglobin 11.6L, Hematocrit 35.4L , Mean Corpuscular Volume 97, Mean Corpuscular Hemoglobin 31.8H, Mean Corpuscular Hemoglobin Concent 32.8, Red Cell Distribution Width 13.1, Platelet Count 137L, Mean Platelet Volume 12.1H, Neutrophils (%) (Auto) 66.6, Lymphocytes (%) (Auto) 18.4L, Monocytes (%) (Auto) 12.8H, Eosinophils (%) (Auto) 0.7, Basophils (%) (Auto) 1.5, Sodium Level 133L, Potassium Level 3.7, Chloride Level 95L, Carbon Dioxide Level 43*H, Blood Urea Nitrogen 16, Creatinine 0.7, Estimat Glomerular Filtration Rate > 60, Glucose Level 123H, Calcium Level 8.0L, Magnesium Level 2.2, Total Bilirubin 0.2, Aspartate Amino Transf (AST/SGOT) 19, Alanine Aminotransferase (ALT/SGPT) 27, Alkaline Phosphatase 83, Total Protein 5.3L, Albumin 2.2L, Globulin 3.1, Albumin/Globulin Ratio 0.7L Height (Feet): 5 Height (Inches): 6.00 Weight (Pounds): 137 General Appearance: WD/WN, lethargic, confused EENT: normal ENT inspection Neck: non-tender, normal alignment Cardiovascular: normal rate, regular rhythm Respiratory/Chest: chest wall non-tender, lungs clear, normal breath sounds, no respiratory distress, no accessory muscle use Abdomen: normal bowel sounds, non tender, soft, no organomegaly Extremities: normal range of motion Edema: no edema noted Arm (L), no edema noted Arm (R) Neurologic: disoriented, aphasia Skin: normal pigmentation Objective General Appearance: WD/WN, alert, confused EENT: normal ENT inspection Neck: normal alignment Cardiovascular: normal rate Respiratory/Chest: chest wall non-tender, lungs clear, normal breath sounds Abdomen: normal bowel sounds, non tender, soft, no organomegaly Edema: no edema noted Arm (L), no edema noted Arm (R) Neurologic: alert, disoriented Assessment/Plan Problem List: (1) Seizure ICD Codes: R56.9 - Unspecified convulsions SNOMED: 74404126 (2) Dysphagia ICD Codes: R13.10 - Dysphagia, unspecified SNOMED: 26633144, 575347674 (3) UTI (urinary tract infection) ICD Codes: N39.0 - Urinary tract infection, site not specified SNOMED: 19062117 (4) Elevated troponin I level ICD Codes: R77.8 - Other specified abnormalities of plasma proteins SNOMED: 233163567 (5) AMS (altered mental status) ICD Codes: R41.82 - Altered mental status, unspecified SNOMED: 909151609 (6) NSTEMI (non-ST elevated myocardial infarction) ICD Codes: I21.4 - Non-ST elevation (NSTEMI) myocardial infarction SNOMED: 56223710 Status: stable Assessment/Plan: cont bipap monitor abg ivf as needed tube feeds sz rx. sz precautions iv abx monitor labs anxiolytics as needed o2 resp rx dvt/stress ulcer prophylaxis. poc d/w son. Jorge Kee MD May 10, 2020 08:03
[2020-05-10] MEDS: Multivitamins W/Minerals 15 ML UDC GT SCH (08:32)
[2020-05-10] MEDS: Docusate 100mg/10ml Liq GT SCH ×2 (08:32→17:24)
[2020-05-10] MEDS: Ascorbic Acid 500mg tab GT SCH (08:33)
[2020-05-10] MEDS: levETIRAcetam 500mg/5ml Liquid GT SCH ×2 (08:33→20:24)
[2020-05-10] MEDS: Aspirin Baby 81mg GT SCH (08:33)
[2020-05-10] MEDS: Heparin 5000 units/ml inj SUBQ SCH ×2 (09:00→19:53)
[2020-05-10] MEDS: cefTRIAXone 1 GM in D5W 55 ML IVPB SCH (11:42)
[2020-05-10 12:00] VITALS: BP 92/67
--- NOTE | 2020-05-10 13:50 | Pulmonology Progress Note ---
Subjective ROS Limited/Unobtainable: No Allergies: Coded Allergies: PENICILLINS (Unverified Allergy, Unknown, 08/11/19) All Systems: reviewed and negative except above Objective Last 24 Hour Vital Signs Date Time Temp Pulse Resp B/P (MAP) Pulse Ox O2 Delivery O2 Flow Rate FiO2 05/10/20 12:00 98.6 74 18 92/67 (75) 100 05/10/20 11:03 61 22 98 40 05/10/20 09:00 Bi-pap 05/10/20 09:00 69 24 100 40 05/10/20 08:33 61 111/60 05/10/20 08:33 61 111/60 05/10/20 08:00 97.0 61 18 111/60 (77) 99 05/10/20 08:00 81 05/10/20 07:43 100 Bi-Pap 40 05/10/20 07:43 78 27 100 40 05/10/20 04:33 63 12 99 40 05/10/20 04:00 98.4 81 28 128/75 (92) 97 05/10/20 04:00 81 05/10/20 02:55 83 18 99 40 05/10/20 00:59 60 12 100 40 05/10/20 00:00 98.1 68 12 127/55 (79) 99 05/10/20 00:00 79 05/09/20 22:52 72 18 99 40 05/09/20 21:00 Bi-pap 05/09/20 20:59 73 18 99 40 05/09/20 20:09 69 121/52 05/09/20 20:00 99.3 89 14 121/52 (75) 99 05/09/20 20:00 88 05/09/20 18:42 51 18 99 40 05/09/20 18:41 100 Bi-Pap 40 05/09/20 16:35 60 13 99 40 05/09/20 16:00 97.9 89 20 107/57 (74) 99 05/09/20 16:00 86 05/09/20 15:05 69 14 98 40 Intake and Output 05/09/20 05/10/20 19:00 07:00 Output Total 200 ml 700 ml Balance -200 ml -700 ml Output Urine Total 200 ml 700 ml # Voids 1 Laboratory Tests 05/10/20 04:25: White Blood Count 8.9, Red Blood Count 3.65L, Hemoglobin 11.6L, Hematocrit 35.4L , Mean Corpuscular Volume 97, Mean Corpuscular Hemoglobin 31.8H, Mean Corpuscular Hemoglobin Concent 32.8, Red Cell Distribution Width 13.1, Platelet Count 137L, Mean Platelet Volume 12.1H, Neutrophils (%) (Auto) 66.6, Lymphocytes (%) (Auto) 18.4L, Monocytes (%) (Auto) 12.8H, Eosinophils (%) (Auto) 0.7, Basophils (%) (Auto) 1.5, Sodium Level 133L, Potassium Level 3.7, Chloride Level 95L, Carbon Dioxide Level 43*H, Blood Urea Nitrogen 16, Creatinine 0.7, Estimat Glomerular Filtration Rate > 60, Glucose Level 123H, Calcium Level 8.0L, Magnesium Level 2.2, Total Bilirubin 0.2, Aspartate Amino Transf (AST/SGOT) 19, Alanine Aminotransferase (ALT/SGPT) 27, Alkaline Phosphatase 83, Total Protein 5.3L, Albumin 2.2L, Globulin 3.1, Albumin/Globulin Ratio 0.7L 05/10/20 08:00: Arterial Blood pH 7.412, Arterial Blood Partial Pressure CO2 61.8*H, Arterial Blood Partial Pressure O2 58.0L, Arterial Blood HCO3 38.5H, Arterial Blood Oxygen Saturation 92.5L, Arterial Blood Base Excess 11.7*H, Apollo Test Positive Current Medications Medications (Trade) Dose Ordered Sig/Mayela Route PRN Reason Start Time Stop Time Status Last Admin Dose Admin Acetaminophen (Tylenol) 650 mg Q4H PRN GT back pain 05/06/20 15:15 06/05/20 15:14 Amlodipine Besylate (Norvasc) 5 mg DAILY GT 05/07/20 09:00 06/06/20 08:59 05/10/20 08:33 Ascorbic Acid (Vitamin C) 500 mg DAILY GT 05/07/20 09:00 06/06/20 08:59 05/10/20 08:33 Aspirin (ASA) 81 mg DAILY GT 05/07/20 09:00 06/21/20 08:59 05/10/20 08:33 Carvedilol (Coreg) 3.125 mg EVERY 12 HOURS GT 05/07/20 09:00 06/06/20 08:59 05/10/20 08:33 Ceftriaxone Sodium 1 gm/ Dextrose 55 ml @ 110 mls/hr Q24H IVPB 05/09/20 11:30 05/16/20 11:29 05/10/20 11:42 Clonidine HCl (Catapres Tab) 0.1 mg Q4H PRN ORAL SBP >160 05/08/20 22:15 08/06/20 22:14 Docusate Sodium (Colace) 200 mg BID GT 05/06/20 18:00 06/05/20 17:59 05/10/20 08:32 Heparin Sodium (Porcine) (Heparin 5000 units/ml) 5,000 units EVERY 12 HOURS SUBQ 05/08/20 09:00 06/22/20 08:59 Levetiracetam (Keppra) 250 mg Q12HR GT 05/06/20 21:00 06/20/20 20:59 05/10/20 08:33 Multivitamins (Multivitamins W/ Minerals 15ml Liquid) 5 ml DAILY GT 05/07/20 09:00 06/06/20 08:59 05/10/20 08:32 Sodium Chloride 1,000 ml @ 50 mls/hr Q20H IV 05/07/20 02:00 06/06/20 01:59 05/09/20 19:53 Tamsulosin HCl (Flomax) 0.4 mg BEDTIME ORAL 05/06/20 21:00 06/05/20 20:59 05/09/20 20:08 Assessment/Plan Assessment/Plan Pulmonary Progress Note Subjective ROS Limited/Unobtainable: No Allergies: Coded Allergies: PENICILLINS (Unverified Allergy, Unknown, 08/11/19) All Systems: reviewed and negative except above Subjective care noted more confused CO2 retention BIPAP PRN Objective Vital Signs noted Objective WDWN NAD reduced breath sounds bilaterally with some rhonchi [id number] without MRG NABS nontender no CC some edema nonfocal Microbiology Date/Time Source Procedure Growth Status 05/06/20 13:49 Rectum VRE Culture - Final NO VANCOMYCIN RESISTANT ENTEROCOCCUS ... Complete 05/06/20 13:49 Rectum - Final NO CARBAPENEM-RESISTANT ENTEROBACTERI... Complete 05/06/20 13:49 Nasal Nares MRSA Culture - Final Staphylococcus Aureus - Mrsa Complete 05/06/20 11:30 Urine,Clean Catch Urine Culture - Final Escherichia Coli Complete 05/06/20 11:15 Nasopharynx SARS-CoV-2 RdRp Gene Assay - Final Complete 05/06/20 11:15 Blood Blood Culture - Preliminary NO GROWTH AFTER 48 HOURS Resulted 05/06/20 11:15 Blood Blood Culture - Preliminary NO GROWTH AFTER 48 HOURS Resulted Laboratory Tests noted Assessment/Plan ASSESSMENT: Pulmonary congestion, respiratory failure, hypoxemia dementia, G-tube, seizure disorder, congestive heart failure, COPD sepsis, and acute [place]. acute on chronic CO2 retention PLAN: maintain oxygen and start BIPAP and repeat ABG. Breathing treatments and aspiration precautions. Monitor blood gases post BIPAP. IV antibiotic therapy. Maintain home meds and monitor with seizure medications. feeds and monitor residuals; DNR noted DVT prophylaxis continue as is monitor lytes and correct consider transfer to [facility] impression, plan, and exam edited and reviewed in detail care discussed with Real Ambrocio MD May 10, 2020 13:50
--- NOTE | 2020-05-10 14:39 | Infectious Diseases Prog Note ---
Assessment/Plan Assessment/Plan A:1. Urinary tract infection with E. coli. 2. MRSA nasal colonization. 3. CHF. 4. COPD. 5. Seizures. 6. Dementia. 7. He is negative for COVID-19. 8. Hypercapnic respiratory failure PLAN: 1. continue ceftriaxone X 2 more days Subjective ROS Limited/Unobtainable: Yes Constitutional: Denies: fever Allergies: Coded Allergies: PENICILLINS (Unverified Allergy, Unknown, 08/11/19) Objective Last 24 Hour Vital Signs Date Time Temp Pulse Resp B/P (MAP) Pulse Ox O2 Delivery O2 Flow Rate FiO2 05/10/20 12:00 98.6 74 18 92/67 (75) 100 05/10/20 12:00 84 05/10/20 11:03 61 22 98 40 05/10/20 09:00 Bi-pap 05/10/20 09:00 69 24 100 40 05/10/20 08:33 61 111/60 05/10/20 08:33 61 111/60 05/10/20 08:00 97.0 61 18 111/60 (77) 99 05/10/20 08:00 81 05/10/20 07:43 100 Bi-Pap 40 05/10/20 07:43 78 27 100 40 05/10/20 04:33 63 12 99 40 05/10/20 04:00 98.4 81 28 128/75 (92) 97 05/10/20 04:00 81 05/10/20 02:55 83 18 99 40 05/10/20 00:59 60 12 100 40 05/10/20 00:00 98.1 68 12 127/55 (79) 99 05/10/20 00:00 79 05/09/20 22:52 72 18 99 40 05/09/20 21:00 Bi-pap 05/09/20 20:59 73 18 99 40 05/09/20 20:09 69 121/52 05/09/20 20:00 99.3 89 14 121/52 (75) 99 05/09/20 20:00 88 05/09/20 18:42 51 18 99 40 05/09/20 18:41 100 Bi-Pap 40 05/09/20 16:35 60 13 99 40 05/09/20 16:00 97.9 89 20 107/57 (74) 99 05/09/20 16:00 86 10/30/20 15:05 69 14 98 40 Height (Feet): 5 Height (Inches): 6.00 Weight (Pounds): 137 HEENT: mucous membranes moist Respiratory/Chest: decreased breath sounds, other - on BIPAP Cardiovascular: normal rate Abdomen: soft, non tender, other - GT in place Extremities: no edema Skin: other - small hemorrhagic blister on R arm Neurologic/Psychiatric: alert Laboratory Tests Test 05/10/20 04:25 05/10/20 08:00 White Blood Count 8.9 K/UL (4.8-10.8) Red Blood Count 3.65 M/UL (4.70-6.10) L Hemoglobin 11.6 G/DL (14.2-18.0) L Hematocrit 35.4 % (42.0-52.0) L Mean Corpuscular Volume 97 FL (80-99) Mean Corpuscular Hemoglobin 31.8 PG (27.0-31.0) H Mean Corpuscular Hemoglobin Concent 32.8 G/DL (32.0-36.0) Red Cell Distribution Width 13.1 % (11.6-14.8) Platelet Count 137 K/UL (150-450) L Mean Platelet Volume 12.1 FL (6.5-10.1) H Neutrophils (%) (Auto) 66.6 % (45.0-75.0) Lymphocytes (%) (Auto) 18.4 % (20.0-45.0) L Monocytes (%) (Auto) 12.8 % (1.0-10.0) H Eosinophils (%) (Auto) 0.7 % (0.0-3.0) Basophils (%) (Auto) 1.5 % (0.0-2.0) Sodium Level 133 MMOL/L (136-145) L Potassium Level 3.7 MMOL/L (3.5-5.1) Chloride Level 95 MMOL/L (98-107) L Carbon Dioxide Level 43 MMOL/L (21-32) *H Blood Urea Nitrogen 16 mg/dL (7-18) Creatinine 0.7 MG/DL (0.55-1.30) Estimat Glomerular Filtration Rate > 60 mL/min (>60) Glucose Level 123 MG/DL (74-106) H Calcium Level 8.0 MG/DL (8.5-10.1) L Magnesium Level 2.2 MG/DL (1.8-2.4) Total Bilirubin 0.2 MG/DL (0.2-1.0) Aspartate Amino Transf (AST/SGOT) 19 U/L (15-37) Alanine Aminotransferase (ALT/SGPT) 27 U/L (12-78) Alkaline Phosphatase 83 U/L (46-116) Total Protein 5.3 G/DL (6.4-8.2) L Albumin 2.2 G/DL (3.4-5.0) L Globulin 3.1 g/dL Albumin/Globulin Ratio 0.7 (1.0-2.7) L Arterial Blood pH 7.412 (7.350-7.450) Arterial Blood Partial Pressure CO2 61.8 mmHg (35.0-45.0) *H Arterial Blood Partial Pressure O2 58.0 mmHg (75.0-100.0) L Arterial Blood HCO3 38.5 mmol/L (22.0-26.0) H Arterial Blood Oxygen Saturation 92.5 % (95-100) L Arterial Blood Base Excess 11.7 (-2-2) *H Apollo Test Positive Current Medications Medications (Trade) Dose Ordered Sig/Mayela Route PRN Reason Start Time Stop Time Status Last Admin Dose Admin Acetaminophen (Tylenol) 650 mg Q4H PRN GT back pain 05/06/20 15:15 06/05/20 15:14 Amlodipine Besylate (Norvasc) 5 mg DAILY GT 05/07/20 09:00 06/06/20 08:59 05/10/20 08:33 Ascorbic Acid (Vitamin C) 500 mg DAILY GT 05/07/20 09:00 06/06/20 08:59 05/10/20 08:33 Aspirin (ASA) 81 mg DAILY GT 05/07/20 09:00 06/21/20 08:59 05/10/20 08:33 Carvedilol (Coreg) 3.125 mg EVERY 12 HOURS GT 05/07/20 09:00 06/06/20 08:59 05/10/20 08:33 Ceftriaxone Sodium 1 gm/ Dextrose 55 ml @ 110 mls/hr Q24H IVPB 05/09/20 11:30 05/16/20 11:29 05/10/20 11:42 Clonidine HCl (Catapres Tab) 0.1 mg Q4H PRN ORAL SBP >160 05/08/20 22:15 08/06/20 22:14 Docusate Sodium (Colace) 200 mg BID GT 05/06/20 18:00 06/05/20 17:59 05/10/20 08:32 Heparin Sodium (Porcine) (Heparin 5000 units/ml) 5,000 units EVERY 12 HOURS SUBQ 05/08/20 09:00 06/22/20 08:59 Levetiracetam (Keppra) 250 mg Q12HR GT 05/06/20 21:00 06/20/20 20:59 05/10/20 08:33 Multivitamins (Multivitamins W/ Minerals 15ml Liquid) 5 ml DAILY GT 05/07/20 09:00 06/06/20 08:59 05/10/20 08:32 Sodium Chloride 1,000 ml @ 50 mls/hr Q20H IV 05/07/20 02:00 06/06/20 01:59 05/09/20 19:53 Tamsulosin HCl (Flomax) 0.4 mg BEDTIME ORAL 05/06/20 21:00 06/05/20 20:59 05/09/20 20:08 Luis Yanes MD May 10, 2020 14:39
[2020-05-10 16:00] VITALS: BP 111/51
[2020-05-10 20:00] VITALS: BP 118/58
[2020-05-10] MEDS: Tamsulosin 0.4mg cap ORAL SCH (20:24)
[2020-05-11] VITALS: BP 116/63
[2020-05-11 04:00] VITALS: BP 145/81
--- NOTE | 2020-05-11 07:44 | General Progress Note ---
Subjective ROS Limited/Unobtainable: No Constitutional: Reports: malaise, weakness HEENT: Reports: no symptoms Cardiovascular: Reports: no symptoms Respiratory: Reports: cough, shortness of breath, SOB with excertion Gastrointestinal/Abdominal: Reports: difficulty swallowing Genitourinary: Reports: no symptoms Neurologic/Psychiatric: Reports: pre-existing deficit, seizure Endocrine: Reports: no symptoms Hematologic/Lymphatic: Reports: no symptoms Allergies: Coded Allergies: PENICILLINS (Unverified Allergy, Unknown, 08/11/19) All Systems: reviewed and negative except above Subjective remains on bipap. no fevers or chills. no sob. tolerating feeds. no vomiting, awake. confused at baseline. no szs. Objective Last 24 Hour Vital Signs Date Time Temp Pulse Resp B/P (MAP) Pulse Ox O2 Delivery O2 Flow Rate FiO2 05/11/20 05:18 73 15 99 40 05/11/20 03:30 67 18 98 40 05/11/20 01:15 63 16 98 40 05/11/20 00:00 98.1 63 13 116/63 (80) 99 05/10/20 22:35 60 16 99 40 05/10/20 21:00 Bi-pap 05/10/20 20:56 62 12 99 40 05/10/20 20:25 64 118/58 05/10/20 20:00 99.6 64 18 118/58 (78) 99 05/10/20 20:00 80 05/10/20 19:30 61 12 100 40 05/10/20 16:43 62 16 100 40 05/10/20 16:00 98.1 63 18 111/51 (71) 98 05/10/20 16:00 87 05/10/20 15:35 60 21 99 40 05/10/20 13:02 71 21 99 40 05/10/20 12:00 98.6 74 18 92/67 (75) 100 05/10/20 12:00 84 05/10/20 11:03 61 22 98 40 05/10/20 09:00 Bi-pap 05/10/20 09:00 69 24 100 40 05/10/20 08:33 61 111/60 05/10/20 08:33 61 111/60 05/10/20 08:00 97.0 61 18 111/60 (77) 99 05/10/20 08:00 81 05/10/20 07:43 100 Bi-Pap 40 05/10/20 07:43 78 27 100 40 Intake and Output 05/10/20 05/11/20 19:00 07:00 Intake Total 500 ml Output Total 400 ml Balance 100 ml IV Total 500 ml Output Urine Total 400 ml # Bowel Movements 1 Laboratory Tests 05/10/20 08:00: Arterial Blood pH 7.412, Arterial Blood Partial Pressure CO2 61.8*H, Arterial Blood Partial Pressure O2 58.0L, Arterial Blood HCO3 38.5H, Arterial Blood Oxygen Saturation 92.5L, Arterial Blood Base Excess 11.7*H, Apollo Test Positive Height (Feet): 5 Height (Inches): 6.00 Weight (Pounds): 137 Objective General Appearance: WD/WN, alert, confused EENT: normal ENT inspection Neck: normal alignment Cardiovascular: normal rate Respiratory/Chest: chest wall non-tender, lungs clear, normal breath sounds Abdomen: normal bowel sounds, non tender, soft, no organomegaly Edema: no edema noted Arm (L), no edema noted Arm (R) Neurologic: alert, disoriented Assessment/Plan Problem List: (1) Seizure ICD Codes: R56.9 - Unspecified convulsions SNOMED: 13786520 (2) Dysphagia ICD Codes: R13.10 - Dysphagia, unspecified SNOMED: 69055456, 176213818 (3) UTI (urinary tract infection) ICD Codes: N39.0 - Urinary tract infection, site not specified SNOMED: 03383786 (4) Elevated troponin I level ICD Codes: R77.8 - Other specified abnormalities of plasma proteins SNOMED: 494881203 (5) AMS (altered mental status) ICD Codes: R41.82 - Altered mental status, unspecified SNOMED: 984431288 (6) NSTEMI (non-ST elevated myocardial infarction) ICD Codes: I21.4 - Non-ST elevation (NSTEMI) myocardial infarction SNOMED: 05786281 Status: stable Assessment/Plan: cont bipap monitor abg wean as able ivf as needed tube feeds sz rx. sz precautions iv abx monitor labs anxiolytics as needed o2 resp rx dvt/stress ulcer prophylaxis. poc d/w tyson. Jorge Kee MD May 11, 2020 07:44
[2020-05-11 08:00] VITALS: BP 140/72
[2020-05-11] MEDS: Heparin 5000 units/ml inj SUBQ SCH ×2 (08:00→21:07)
[2020-05-11] MEDS: Docusate 100mg/10ml Liq GT SCH ×2 (08:26→17:15)
[2020-05-11] MEDS: Ascorbic Acid 500mg tab GT SCH (08:27)
[2020-05-11] MEDS: Aspirin Baby 81mg GT SCH (08:27)
[2020-05-11] MEDS: levETIRAcetam 500mg/5ml Liquid GT SCH ×2 (08:27→21:05)
[2020-05-11] MEDS: Multivitamins W/Minerals 15 ML UDC GT SCH (08:27)
[2020-05-11 08:32] LABS: BASOPHILS % (AUTO) 0.8 % (0.0-2.0); EOSINOPHILS % (AUTO) 1.4 % (0.0-3.0); HEMATOCRIT 38.1 % (42.0-52.0); HEMOGLOBIN 12.5 G/DL (14.2-18.0); LYMPHOCYTES % (AUTO) 20.9 % (20.0-45.0); MEAN CORPUSCULAR VOLUME 100 FL (80-99); MONOCYTES % (AUTO) 12.7 % (1.0-10.0); NEUTROPHILS % (AUTO) 64.2 % (45.0-75.0); PLATELET COUNT 166 K/UL (150-450); RED BLOOD COUNT 3.83 M/UL (4.70-6.10); RED CELL DISTRIBUTION WIDTH 13.2 % (11.6-14.8)
[2020-05-11 08:56] LABS: ALANINE AMINOTRANSFERASE 32 U/L (12-78); ALBUMIN 2.3 G/DL (3.4-5.0); ALBUMIN/GLOBULIN RATIO 0.6 (1.0-2.7); ALKALINE PHOSPHATASE 88 U/L (46-116); ANION GAP 0 mmol/L (5-15); ASPARTATE AMINO TRANSFERASE 23 U/L (15-37); BILIRUBIN,TOTAL 0.2 MG/DL (0.2-1.0); BLOOD UREA NITROGEN 15 mg/dL (7-18); CALCIUM 8.1 MG/DL (8.5-10.1); CHLORIDE 97 MMOL/L (98-107); CREATININE 0.5 MG/DL (0.55-1.30); POTASSIUM 3.7 MMOL/L (3.5-5.1); SODIUM 139 MMOL/L (136-145)
[2020-05-11 08:58] LABS: CARBON DIOXIDE 42 MMOL/L (21-32)
[2020-05-11] MEDS: cefTRIAXone 1 GM in D5W 55 ML IVPB SCH (11:17)
[2020-05-11 12:00] VITALS: BP 108/56
[2020-05-11 16:00] VITALS: BP 126/68
[2020-05-11 20:00] VITALS: BP 135/68
--- NOTE | 2020-05-11 20:52 | Pulmonology Progress Note ---
Subjective ROS Limited/Unobtainable: No Constitutional: Denies: fever Allergies: Coded Allergies: PENICILLINS (Unverified Allergy, Unknown, 08/11/19) All Systems: reviewed and negative except above Objective Last 24 Hour Vital Signs Date Time Temp Pulse Resp B/P (MAP) Pulse Ox O2 Delivery O2 Flow Rate FiO2 05/11/20 20:00 73 05/11/20 19:51 70 34 97 30 05/11/20 19:49 97 Bi-Pap 30 05/11/20 17:00 61 20 98 30 05/11/20 16:00 Bi-pap 05/11/20 16:00 98.4 67 19 126/68 (87) 100 05/11/20 15:29 68 05/11/20 15:27 68 20 99 40 05/11/20 13:15 64 20 98 40 05/11/20 12:00 69 05/11/20 12:00 97.5 64 20 108/56 (73) 100 05/11/20 11:26 66 23 98 40 05/11/20 09:15 64 12 98 40 05/11/20 09:00 Bi-pap 05/11/20 08:28 90 140/72 05/11/20 08:27 90 140/72 05/11/20 08:00 69 05/11/20 08:00 97.7 90 18 140/72 (94) 98 05/11/20 07:10 87 17 98 40 05/11/20 05:18 73 15 99 40 05/11/20 04:00 71 05/11/20 04:00 97.7 83 18 145/81 (102) 99 05/11/20 03:30 67 18 98 40 05/11/20 01:15 63 16 98 40 05/11/20 00:00 98.1 63 13 116/63 (80) 99 05/10/20 22:35 60 16 99 40 05/10/20 21:00 Bi-pap 05/10/20 20:56 62 12 99 40 Intake and Output 05/10/20 05/11/20 19:00 07:00 Intake Total 540 ml 440 ml Output Total 400 ml 500 ml Balance 140 ml -60 ml IV Total 500 ml Tube Feeding 40 ml 440 ml Output Urine Total 400 ml 500 ml # Bowel Movements 1 Laboratory Tests 05/11/20 06:20: White Blood Count 8.0, Red Blood Count 3.83L, Hemoglobin 12.5L, Hematocrit 38.1L , Mean Corpuscular Volume 100H, Mean Corpuscular Hemoglobin 32.6H, Mean Corpuscular Hemoglobin Concent 32.7, Red Cell Distribution Width 13.2, Platelet Count 166, Mean Platelet Volume 9.8, Neutrophils (%) (Auto) 64.2, Lymphocytes (%) (Auto) 20.9, Monocytes (%) (Auto) 12.7H, Eosinophils (%) (Auto) 1.4, Basophils (%) (Auto) 0.8, Sodium Level 139, Potassium Level 3.7, Chloride Level 97L, Carbon Dioxide Level 42*H, Anion Gap 0L, Blood Urea Nitrogen 15, Creatinine 0.5L, Estimat Glomerular Filtration Rate > 60, Glucose Level 100, Calcium Level 8.1L, Total Bilirubin 0.2, Aspartate Amino Transf (AST/SGOT) 23, Alanine Aminotransferase (ALT/SGPT) 32, Alkaline Phosphatase 88, Total Protein 6.2L, Albumin 2.3L, Globulin 3.9, Albumin/Globulin Ratio 0.6L Current Medications Medications (Trade) Dose Ordered Sig/Mayela Route PRN Reason Start Time Stop Time Status Last Admin Dose Admin Acetaminophen (Tylenol) 650 mg Q4H PRN GT back pain 05/06/20 15:15 06/05/20 15:14 Amlodipine Besylate (Norvasc) 5 mg DAILY GT 05/07/20 09:00 06/06/20 08:59 05/11/20 08:28 Ascorbic Acid (Vitamin C) 500 mg DAILY GT 05/07/20 09:00 06/06/20 08:59 05/11/20 08:27 Aspirin (ASA) 81 mg DAILY GT 05/07/20 09:00 06/21/20 08:59 05/11/20 08:27 Carvedilol (Coreg) 3.125 mg EVERY 12 HOURS GT 05/07/20 09:00 06/06/20 08:59 05/11/20 08:27 Ceftriaxone Sodium 1 gm/ Dextrose 55 ml @ 110 mls/hr Q24H IVPB 05/09/20 11:30 05/16/20 11:29 05/11/20 11:17 Clonidine HCl (Catapres Tab) 0.1 mg Q4H PRN ORAL SBP >160 05/08/20 22:15 08/06/20 22:14 Docusate Sodium (Colace) 200 mg BID GT 05/06/20 18:00 06/05/20 17:59 05/11/20 08:26 Heparin Sodium (Porcine) (Heparin 5000 units/ml) 5,000 units EVERY 12 HOURS SUBQ 05/08/20 09:00 06/22/20 08:59 Levetiracetam (Keppra) 250 mg Q12HR GT 05/06/20 21:00 06/20/20 20:59 05/11/20 08:27 Multivitamins (Multivitamins W/ Minerals 15ml Liquid) 5 ml DAILY GT 05/07/20 09:00 06/06/20 08:59 05/11/20 08:27 Sodium Chloride 1,000 ml @ 50 mls/hr Q20H IV 05/07/20 02:00 06/06/20 01:59 05/11/20 08:26 Tamsulosin HCl (Flomax) 0.4 mg BEDTIME ORAL 05/06/20 21:00 06/05/20 20:59 05/10/20 20:24 Assessment/Plan Assessment/Plan Pulmonary Progress Note Subjective ROS Limited/Unobtainable: No Allergies: Coded Allergies: PENICILLINS (Unverified Allergy, Unknown, 08/11/19) All Systems: reviewed and negative except above Subjective care noted remains confused CO2 retention BIPAP PRN Objective Vital Signs noted Objective WDWN NAD reduced breath sounds bilaterally with some rhonchi [id number] without MRG NABS nontender no CC some edema nonfocal Microbiology Date/Time Source Procedure Growth Status 05/06/20 13:49 Rectum VRE Culture - Final NO VANCOMYCIN RESISTANT ENTEROCOCCUS ... Complete 05/06/20 13:49 Rectum - Final NO CARBAPENEM-RESISTANT ENTEROBACTERI... Complete 05/06/20 13:49 Nasal Nares MRSA Culture - Final Staphylococcus Aureus - Mrsa Complete 05/06/20 11:30 Urine,Clean Catch Urine Culture - Final Escherichia Coli Complete 05/06/20 11:15 Nasopharynx SARS-CoV-2 RdRp Gene Assay - Final Complete 05/06/20 11:15 Blood Blood Culture - Preliminary NO GROWTH AFTER 48 HOURS Resulted 05/06/20 11:15 Blood Blood Culture - Preliminary NO GROWTH AFTER 48 HOURS Resulted Laboratory Tests noted Assessment/Plan ASSESSMENT: Pulmonary congestion, respiratory failure, hypoxemia dementia, G-tube, seizure disorder, congestive heart failure, COPD sepsis, and acute [place]. acute on chronic CO2 retention PLAN: maintain oxygen and start BIPAP and repeat ABG. Breathing treatments and aspiration precautions. Monitor blood gases post BIPAP. IV antibiotic therapy. Maintain home meds and monitor with seizure medications. feeds and monitor residuals; DNR noted DVT prophylaxis continue as is monitor lytes and correct consider transfer to [facility] impression, plan, and exam edited and reviewed in detail care discussed with Real Ambrocio MD May 11, 2020 20:52
[2020-05-11] MEDS: Tamsulosin 0.4mg cap ORAL SCH (21:06)
[2020-05-12] VITALS: BP 140/64
[2020-05-12 04:00] VITALS: BP 140/64
--- NOTE | 2020-05-12 07:46 | General Progress Note ---
Subjective ROS Limited/Unobtainable: No Constitutional: Reports: malaise, weakness HEENT: Reports: no symptoms Cardiovascular: Reports: no symptoms Respiratory: Reports: no symptoms Gastrointestinal/Abdominal: Reports: no symptoms Genitourinary: Reports: no symptoms Neurologic/Psychiatric: Reports: anxiety Endocrine: Reports: no symptoms Hematologic/Lymphatic: Reports: no symptoms Allergies: Coded Allergies: PENICILLINS (Unverified Allergy, Unknown, 08/11/19) All Systems: reviewed and negative except above Subjective remains on bipap. alert. cooperative. follows simple commands. no fevers or chills. no sob. tolerating feeds. no vomiting. confused at baseline. no szs. Objective Last 24 Hour Vital Signs Date Time Temp Pulse Resp B/P (MAP) Pulse Ox O2 Delivery O2 Flow Rate FiO2 05/12/20 05:01 65 19 97 30 05/12/20 04:00 68 05/12/20 04:00 98.8 65 19 140/64 (89) 100 05/12/20 03:03 83 28 98 30 05/12/20 01:14 76 27 98 30 05/12/20 00:00 98.5 82 19 140/64 (89) 100 05/11/20 23:58 72 05/11/20 23:13 66 33 98 30 05/11/20 21:17 68 35 98 30 05/11/20 21:05 78 110/36 05/11/20 20:00 73 05/11/20 20:00 98.5 82 19 135/68 (90) 100 05/11/20 19:51 70 34 97 30 05/11/20 19:49 97 Bi-Pap 30 05/11/20 17:00 61 20 98 30 05/11/20 16:00 Bi-pap 05/11/20 16:00 98.4 67 19 126/68 (87) 100 05/11/20 15:29 68 05/11/20 15:27 68 20 99 40 05/11/20 13:15 64 20 98 40 05/11/20 12:00 69 05/11/20 12:00 97.5 64 20 108/56 (73) 100 05/11/20 11:26 66 23 98 40 05/11/20 09:15 64 12 98 40 05/11/20 09:00 Bi-pap 11/1/20 08:28 90 140/72 11/1/20 08:27 90 140/72 05/11/20 08:00 69 05/11/20 08:00 97.7 90 18 140/72 (94) 98 Intake and Output 05/11/20 05/12/20 19:00 07:00 Intake Total 665 ml 1180 ml Output Total 500 ml 600 ml Balance 165 ml 580 ml Intake Free Water 30 ml 50 ml IV Total 355 ml 450 ml Tube Feeding 280 ml 680 ml Output Urine Total 500 ml 600 ml # Bowel Movements 1 1 Height (Feet): 5 Height (Inches): 6.00 Weight (Pounds): 137 Objective General Appearance: WD/WN, alert, confused EENT: normal ENT inspection Neck: normal alignment Cardiovascular: normal rate Respiratory/Chest: chest wall non-tender, lungs clear, normal breath sounds Abdomen: normal bowel sounds, non tender, soft, no organomegaly Edema: no edema noted Arm (L), no edema noted Arm (R) Neurologic: alert, disoriented Assessment/Plan Problem List: (1) Seizure ICD Codes: R56.9 - Unspecified convulsions SNOMED: 92896623 (2) Dysphagia ICD Codes: R13.10 - Dysphagia, unspecified SNOMED: 37383006, 109110764 (3) UTI (urinary tract infection) ICD Codes: N39.0 - Urinary tract infection, site not specified SNOMED: 75709341 (4) Elevated troponin I level ICD Codes: R77.8 - Other specified abnormalities of plasma proteins SNOMED: 725117823 (5) AMS (altered mental status) ICD Codes: R41.82 - Altered mental status, unspecified SNOMED: 431676339 (6) NSTEMI (non-ST elevated myocardial infarction) ICD Codes: I21.4 - Non-ST elevation (NSTEMI) myocardial infarction SNOMED: 05843840 Status: stable Assessment/Plan: cont bipap monitor abg- ordered for this am wean as able ivf as needed tube feeds sz rx. sz precautions iv abx monitor labs anxiolytics as needed o2 resp rx dvt/stress ulcer prophylaxis. poc d/w tyson. Jorge Kee MD May 12, 2020 07:46
[2020-05-12 08:00] VITALS: BP 136/77
[2020-05-12] MEDS: Ascorbic Acid 500mg tab GT SCH (08:45)
[2020-05-12] MEDS: Aspirin Baby 81mg GT SCH (08:45)
[2020-05-12] MEDS: Docusate 100mg/10ml Liq GT SCH ×2 (08:46→16:13)
[2020-05-12] MEDS: levETIRAcetam 500mg/5ml Liquid GT SCH ×2 (08:46→21:09)
[2020-05-12] MEDS: Multivitamins W/Minerals 15 ML UDC GT SCH (08:46)
[2020-05-12] MEDS: Heparin 5000 units/ml inj SUBQ SCH ×2 (08:48→21:08)
[2020-05-12] MEDS: cefTRIAXone 1 GM in D5W 55 ML IVPB SCH (10:58)
[2020-05-12 12:00] VITALS: BP 122/51
--- NOTE | 2020-05-12 12:11 | Infectious Diseases Prog Note ---
Assessment/Plan Assessment/Plan A:1. Urinary tract infection with E. coli. 2. MRSA nasal colonization. 3. CHF. 4. COPD. 5. Seizures. 6. Dementia. 7. He is negative for COVID-19. 8. Hypercapnic respiratory failure PLAN: 1. Discontinue ceftriaxone 2. Repeat CXR Subjective ROS Limited/Unobtainable: Yes Constitutional: Denies: fever Allergies: Coded Allergies: PENICILLINS (Unverified Allergy, Unknown, 08/11/19) Objective Last 24 Hour Vital Signs Date Time Temp Pulse Resp B/P (MAP) Pulse Ox O2 Delivery O2 Flow Rate FiO2 05/12/20 09:12 57 18 97 30 05/12/20 08:46 68 136/77 05/12/20 08:46 68 136/77 05/12/20 08:00 86 05/12/20 08:00 98.1 68 16 136/77 (96) 98 05/12/20 07:30 59 17 98 30 05/12/20 07:30 97 Bi-Pap 30 05/12/20 05:01 65 19 97 30 05/12/20 04:00 68 05/12/20 04:00 98.8 65 19 140/64 (89) 100 05/12/20 03:03 83 28 98 30 05/12/20 01:14 76 27 98 30 05/12/20 00:00 98.5 82 19 140/64 (89) 100 05/11/20 23:58 72 05/11/20 23:13 66 33 98 30 05/11/20 21:17 68 35 98 30 05/11/20 21:05 78 110/36 05/11/20 20:00 73 05/11/20 20:00 98.5 82 19 135/68 (90) 100 05/11/20 19:51 70 34 97 30 05/11/20 19:49 97 Bi-Pap 30 05/11/20 17:00 61 20 98 30 05/11/20 16:00 Bi-pap 05/11/20 16:00 98.4 67 19 126/68 (87) 100 05/11/20 15:29 68 05/11/20 15:27 68 20 99 40 05/11/20 13:15 64 20 98 40 Height (Feet): 5 Height (Inches): 6.00 Weight (Pounds): 137 HEENT: mucous membranes moist Respiratory/Chest: decreased breath sounds, other - on BIPAP Cardiovascular: bradycardia Abdomen: soft, non tender, other Extremities: other - trace edema Neurologic/Psychiatric: alert Laboratory Tests Test 05/12/20 07:34 Arterial Blood pH 7.444 (7.350-7.450) Arterial Blood Partial Pressure CO2 62.6 mmHg (35.0-45.0) *H Arterial Blood Partial Pressure O2 64.6 mmHg (75.0-100.0) L Arterial Blood HCO3 41.9 mmol/L (22.0-26.0) *H Arterial Blood Oxygen Saturation 93.6 % (95-100) L Arterial Blood Base Excess 15.1 (-2-2) *H Apollo Test Positive Current Medications Medications (Trade) Dose Ordered Sig/Mayela Route PRN Reason Start Time Stop Time Status Last Admin Dose Admin Acetaminophen (Tylenol) 650 mg Q4H PRN GT back pain 05/06/20 15:15 06/05/20 15:14 Amlodipine Besylate (Norvasc) 5 mg DAILY GT 05/07/20 09:00 06/06/20 08:59 05/12/20 08:46 Ascorbic Acid (Vitamin C) 500 mg DAILY GT 05/07/20 09:00 06/06/20 08:59 05/12/20 08:45 Aspirin (ASA) 81 mg DAILY GT 05/07/20 09:00 06/21/20 08:59 05/12/20 08:45 Carvedilol (Coreg) 3.125 mg EVERY 12 HOURS GT 05/07/20 09:00 06/06/20 08:59 05/12/20 08:46 Ceftriaxone Sodium 1 gm/ Dextrose 55 ml @ 110 mls/hr Q24H IVPB 05/09/20 11:30 05/16/20 11:29 05/12/20 10:58 Clonidine HCl (Catapres Tab) 0.1 mg Q4H PRN ORAL SBP >160 05/08/20 22:15 08/06/20 22:14 Docusate Sodium (Colace) 200 mg BID GT 05/06/20 18:00 06/05/20 17:59 05/12/20 08:46 Heparin Sodium (Porcine) (Heparin 5000 units/ml) 5,000 units EVERY 12 HOURS SUBQ 05/08/20 09:00 06/22/20 08:59 05/12/20 08:48 Levetiracetam (Keppra) 250 mg Q12HR GT 05/06/20 21:00 06/20/20 20:59 05/12/20 08:46 Multivitamins (Multivitamins W/ Minerals 15ml Liquid) 5 ml DAILY GT 05/07/20 09:00 06/06/20 08:59 05/12/20 08:46 Tamsulosin HCl (Flomax) 0.4 mg BEDTIME ORAL 05/06/20 21:00 06/05/20 20:59 05/11/20 21:06 Luis Yanes MD May 12, 2020 12:11
--- NOTE | 2020-05-12 15:21 | Pulmonology Progress Note ---
Subjective ROS Limited/Unobtainable: Yes Constitutional: Denies: fever Allergies: Coded Allergies: PENICILLINS (Unverified Allergy, Unknown, 08/11/19) All Systems: reviewed and negative except above Subjective care noted on BIPAP no distress acid base better Objective Last 24 Hour Vital Signs Date Time Temp Pulse Resp B/P (MAP) Pulse Ox O2 Delivery O2 Flow Rate FiO2 05/12/20 12:00 98.6 71 30 122/51 (74) 98 05/12/20 12:00 81 05/12/20 11:35 74 34 98 30 05/12/20 09:12 57 18 97 30 05/12/20 08:46 68 136/77 05/12/20 08:46 68 136/77 05/12/20 08:00 86 05/12/20 08:00 98.1 68 16 136/77 (96) 98 05/12/20 07:30 59 17 98 30 05/12/20 07:30 97 Bi-Pap 30 05/12/20 05:01 65 19 97 30 05/12/20 04:00 68 05/12/20 04:00 98.8 65 19 140/64 (89) 100 05/12/20 03:03 83 28 98 30 05/12/20 01:14 76 27 98 30 05/12/20 00:00 98.5 82 19 140/64 (89) 100 05/11/20 23:58 72 05/11/20 23:13 66 33 98 30 05/11/20 21:17 68 35 98 30 05/11/20 21:05 78 110/36 05/11/20 20:00 73 05/11/20 20:00 98.5 82 19 135/68 (90) 100 05/11/20 19:51 70 34 97 30 05/11/20 19:49 97 Bi-Pap 30 05/11/20 17:00 61 20 98 30 05/11/20 16:00 Bi-pap 05/11/20 16:00 98.4 67 19 126/68 (87) 100 05/11/20 15:29 68 05/11/20 15:27 68 20 99 40 Intake and Output 05/11/20 05/12/20 19:00 07:00 Intake Total 665 ml 1310 ml Output Total 500 ml 600 ml Balance 165 ml 710 ml Intake Free Water 30 ml 50 ml IV Total 355 ml 500 ml Tube Feeding 280 ml 760 ml Output Urine Total 500 ml 600 ml # Bowel Movements 1 1 Objective WDWN NAD reduced breath sounds bilaterally without rhonchi [id number] without MRG NABS nontender no CC some edema nonfocal on BIPAP reduced LOC Laboratory Tests 05/12/20 07:34: Arterial Blood pH 7.444, Arterial Blood Partial Pressure CO2 62.6*H, Arterial Blood Partial Pressure O2 64.6L, Arterial Blood HCO3 41.9*H, Arterial Blood Oxygen Saturation 93.6L, Arterial Blood Base Excess 15.1*H, Apollo Test Positive Current Medications Medications (Trade) Dose Ordered Sig/Mayela Route PRN Reason Start Time Stop Time Status Last Admin Dose Admin Acetaminophen (Tylenol) 650 mg Q4H PRN GT back pain 05/06/20 15:15 06/05/20 15:14 Amlodipine Besylate (Norvasc) 5 mg DAILY GT 05/07/20 09:00 06/06/20 08:59 05/12/20 08:46 Ascorbic Acid (Vitamin C) 500 mg DAILY GT 05/07/20 09:00 06/06/20 08:59 05/12/20 08:45 Aspirin (ASA) 81 mg DAILY GT 05/07/20 09:00 06/21/20 08:59 05/12/20 08:45 Carvedilol (Coreg) 3.125 mg EVERY 12 HOURS GT 05/07/20 09:00 06/06/20 08:59 05/12/20 08:46 Clonidine HCl (Catapres Tab) 0.1 mg Q4H PRN ORAL SBP >160 05/08/20 22:15 08/06/20 22:14 Docusate Sodium (Colace) 200 mg BID GT 05/06/20 18:00 06/05/20 17:59 05/12/20 08:46 Heparin Sodium (Porcine) (Heparin 5000 units/ml) 5,000 units EVERY 12 HOURS SUBQ 05/08/20 09:00 06/22/20 08:59 05/12/20 08:48 Levetiracetam (Keppra) 250 mg Q12HR GT 05/06/20 21:00 06/20/20 20:59 05/12/20 08:46 Multivitamins (Multivitamins W/ Minerals 15ml Liquid) 5 ml DAILY GT 05/07/20 09:00 06/06/20 08:59 05/12/20 08:46 Tamsulosin HCl (Flomax) 0.4 mg BEDTIME ORAL 05/06/20 21:00 06/05/20 20:59 05/11/20 21:06 Assessment/Plan Assessment/Plan ASSESSMENT: Pulmonary congestion, respiratory failure, hypoxemia dementia, G-tube, seizure disorder, congestive heart failure, COPD sepsis, and acute SC. acute on chronic CO2 retention PLAN: maintain oxygen and BIPAP and repeat ABG. Breathing treatments and aspiration precautions. Monitor blood gases for change. IV antibiotic therapy. Maintain home meds and monitor with seizure medications. feeds and monitor residuals; DNR noted DVT prophylaxis continue as is monitor lytes trial of BIPAP as able impression, plan, and exam edited and reviewed in detail care discussed with Attila Yuan MD May 12, 2020 15:21
[2020-05-12 16:00] VITALS: BP 143/77
--- NOTE | 2020-05-12 17:33 | Diagnostic Imaging Report ---
Indication: Dyspnea Technique: One view of the chest Comparison: 05/06/2020 Findings: There is increased bilateral pleural fluid, left greater than right. There is slightly increased interstitial congestion. The heart remains enlarged. Impression: Increased bilateral pleural fluid and slightly increased interstitial congestion
[2020-05-12] MEDS ORDERED: Tubing IV Secondary IV ONE (17:37)
[2020-05-12 20:18] VITALS: BP 139/62
[2020-05-12] MEDS: Tamsulosin 0.4mg cap ORAL SCH (21:12)
[2020-05-13] VITALS: BP 133/59
--- NOTE | 2020-05-13 00:33 | Cardiology Progress Note ---
Subjective DATE OF SERVICE: May 12, 2020 Still on bipap. Labs reviewed. O2 requirements decreasing; acid-base parameters remain poor. Objective Last 24 Hour Vital Signs Date Time Temp Pulse Resp B/P (MAP) Pulse Ox O2 Delivery O2 Flow Rate FiO2 05/13/20 00:00 96.8 80 18 133/59 (83) 97 05/12/20 23:22 60 16 98 30 05/12/20 22:00 79 05/12/20 21:13 78 140/66 05/12/20 20:18 97.5 83 18 139/62 (87) 100 05/12/20 19:00 65 20 96 30 05/12/20 17:23 55 33 97 30 05/12/20 16:00 82 05/12/20 16:00 Bi-pap 05/12/20 16:00 98.1 68 16 143/77 (99) 100 05/12/20 15:00 80 33 98 30 05/12/20 13:14 79 33 98 30 05/12/20 12:00 98.6 71 30 122/51 (74) 98 05/12/20 12:00 Bi-pap 05/12/20 12:00 81 05/12/20 11:35 74 34 98 30 05/12/20 09:12 57 18 97 30 05/12/20 08:46 68 136/77 05/12/20 08:46 68 136/77 05/12/20 08:00 86 05/12/20 08:00 98.1 68 16 136/77 (96) 98 05/12/20 08:00 Bi-pap 05/12/20 07:30 59 17 98 30 05/12/20 07:30 97 Bi-Pap 30 05/12/20 05:01 65 19 97 30 05/12/20 04:00 68 05/12/20 04:00 98.8 65 19 140/64 (89) 100 05/12/20 03:03 83 28 98 30 05/12/20 01:14 76 27 98 30 ROS: unchanged from my evaluation of 05/06/20 RHYTHM: NSR LUNGS: diminished breath sounds CARDIAC: normal rate, regular rhythm, normal S1 and S2 ABDOMEN: G-Tube intact EXTREMITIES: non-pitting, No edema Laboratory Tests Test 05/12/20 07:34 Arterial Blood pH 7.444 (7.350-7.450) Arterial Blood Partial Pressure CO2 62.6 mmHg (35.0-45.0) *H Arterial Blood Partial Pressure O2 64.6 mmHg (75.0-100.0) L Arterial Blood HCO3 41.9 mmol/L (22.0-26.0) *H Arterial Blood Oxygen Saturation 93.6 % (95-100) L Arterial Blood Base Excess 15.1 (-2-2) *H Apollo Test Positive CHEST XRAY: 05/12/20: increased pleural effusions and congestion Assessment/Plan Assessment/Plan E.coli UTI Sepsis Metabolic and toxic encephalopathies Cerebrovascular disease with dementia Acute myocardial ischemia and possible NSTEMI Hypovolemia and dehydration corrected Hypertension/HHD Ac/chronic respiratory acidosis Ac diastolic CHF Metabolic acidosis Follow up troponin Continue anti-anginal regimen; titrate meds for BP control. Off IVF Antimicrobials Diuresis with loop diuretic and acetazolamide. Monitor acid-base parameters. Real Magana MD May 13, 2020 00:33
[2020-05-13 04:00] VITALS: BP 142/59
[2020-05-13 05:39] LABS: BASOPHILS % (AUTO) 1.2 % (0.0-2.0); EOSINOPHILS % (AUTO) 1.7 % (0.0-3.0); HEMATOCRIT 46.2 % (42.0-52.0); HEMOGLOBIN 14.5 G/DL (14.2-18.0); LYMPHOCYTES % (AUTO) 17.2 % (20.0-45.0); MEAN CORPUSCULAR VOLUME 103 FL (80-99); MONOCYTES % (AUTO) 11.1 % (1.0-10.0); NEUTROPHILS % (AUTO) 68.9 % (45.0-75.0); PLATELET COUNT 141 K/UL (150-450); RED CELL DISTRIBUTION WIDTH 13.8 % (11.6-14.8); WHITE BLOOD COUNT 8.7 K/UL (4.8-10.8)
[2020-05-13 06:06] LABS: ALANINE AMINOTRANSFERASE 35 U/L (12-78); ALBUMIN 2.7 G/DL (3.4-5.0); ALBUMIN/GLOBULIN RATIO 0.6 (1.0-2.7); ALKALINE PHOSPHATASE 101 U/L (46-116); ANION GAP 0 mmol/L (5-15); ASPARTATE AMINO TRANSFERASE 31 U/L (15-37); BILIRUBIN,TOTAL 0.4 MG/DL (0.2-1.0); BLOOD UREA NITROGEN 13 mg/dL (7-18); CALCIUM 8.7 MG/DL (8.5-10.1); CARBON DIOXIDE 40 MMOL/L (21-32); CHLORIDE 99 MMOL/L (98-107); CREATININE 0.6 MG/DL (0.55-1.30); POTASSIUM 4.2 MMOL/L (3.5-5.1); SODIUM 139 MMOL/L (136-145)
[2020-05-13 08:00] VITALS: BP 158/84
--- NOTE | 2020-05-13 08:02 | Pulmonology Progress Note ---
Subjective ROS Limited/Unobtainable: Yes Constitutional: Denies: fever Allergies: Coded Allergies: PENICILLINS (Unverified Allergy, Unknown, 08/11/19) All Systems: reviewed and negative except above Subjective care noted off BIPAP no distress acid base better Objective Last 24 Hour Vital Signs Date Time Temp Pulse Resp B/P (MAP) Pulse Ox O2 Delivery O2 Flow Rate FiO2 05/13/20 07:26 84 13 98 30 05/13/20 05:30 81 28 98 30 05/13/20 04:00 95 05/13/20 04:00 97.5 79 20 142/59 (86) 98 05/13/20 04:00 30 05/13/20 03:25 60 29 95 30 05/13/20 03:22 77 33 96 30 05/13/20 01:25 62 33 95 30 05/13/20 00:00 96.8 80 18 133/59 (83) 97 05/13/20 00:00 82 05/13/20 00:00 30 05/12/20 23:22 60 29 98 30 05/12/20 22:00 79 05/12/20 21:13 78 140/66 05/12/20 20:18 97.5 83 18 139/62 (87) 100 05/12/20 20:00 30 05/12/20 19:00 65 20 96 30 05/12/20 17:23 55 33 97 30 05/12/20 16:00 82 05/12/20 16:00 30 05/12/20 16:00 Bi-pap 05/12/20 16:00 98.1 68 16 143/77 (99) 100 05/12/20 15:00 80 33 98 30 05/12/20 13:14 79 33 98 30 05/12/20 12:00 98.6 71 30 122/51 (74) 98 05/12/20 12:00 30 05/12/20 12:00 Bi-pap 05/12/20 12:00 81 05/12/20 11:35 74 34 98 30 05/12/20 09:12 57 18 97 30 05/12/20 08:46 68 136/77 05/12/20 08:46 68 136/77 Intake and Output 05/12/20 05/13/20 19:00 07:00 Intake Total 1275 ml 1095 ml Output Total 2600 ml Balance 1275 ml -1505 ml Intake Free Water 210 ml 375 ml IV Total 105 ml Tube Feeding 960 ml 720 ml Output Urine Total 2600 ml # Voids 4 # Bowel Movements 3 Objective WDWN NAD reduced breath sounds bilaterally without rhonchi [id number] without MRG NABS nontender no CC some edema nonfocal on BIPAP reduced LOC Laboratory Tests 05/13/20 04:45: White Blood Count 8.7, Red Blood Count 4.50L, Hemoglobin 14.5, Hematocrit 46.2, Mean Corpuscular Volume 103H, Mean Corpuscular Hemoglobin 32.1H, Mean Corpuscular Hemoglobin Concent 31.3L, Red Cell Distribution Width 13.8, Platelet Count 141L, Mean Platelet Volume 10.8H, Neutrophils (%) (Auto) 68.9, Lymphocytes (%) (Auto) 17.2L, Monocytes (%) (Auto) 11.1H, Eosinophils (%) (Auto) 1.7, Basophils (%) (Auto) 1.2, Sodium Level 139, Potassium Level 4.2, Chloride Level 99, Carbon Dioxide Level 40H, Anion Gap 0L, Blood Urea Nitrogen 13, Creatinine 0.6, Estimat Glomerular Filtration Rate > 60, Glucose Level 117H, Calcium Level 8.7, Magnesium Level [Pending], Total Bilirubin 0.4, Aspartate Amino Transf (AST/SGOT) 31, Alanine Aminotransferase (ALT/SGPT) 35, Alkaline Phosphatase 101, Troponin I [Pending], Pro-B-Type Natriuretic Peptide [Pending], Total Protein 7.2, Albumin 2.7L, Globulin 4.5, Albumin/Globulin Ratio 0.6L Current Medications Medications (Trade) Dose Ordered Sig/Mayela Route PRN Reason Start Time Stop Time Status Last Admin Dose Admin Acetaminophen (Tylenol) 650 mg Q4H PRN GT back pain 05/06/20 15:15 06/05/20 15:14 Acetazolamide (Diamox) 250 mg TWICE A DAY GT 05/13/20 09:00 06/12/20 08:59 Amlodipine Besylate (Norvasc) 5 mg DAILY GT 05/07/20 09:00 06/06/20 08:59 05/12/20 08:46 Ascorbic Acid (Vitamin C) 500 mg DAILY GT 05/07/20 09:00 06/06/20 08:59 05/12/20 08:45 Aspirin (ASA) 81 mg DAILY GT 05/07/20 09:00 06/21/20 08:59 05/12/20 08:45 Carvedilol (Coreg) 3.125 mg EVERY 12 HOURS GT 05/07/20 09:00 06/06/20 08:59 05/12/20 21:13 Clonidine HCl (Catapres Tab) 0.1 mg Q4H PRN ORAL SBP >160 05/08/20 22:15 08/06/20 22:14 Docusate Sodium (Colace) 200 mg BID GT 05/06/20 18:00 06/05/20 17:59 05/12/20 08:46 Heparin Sodium (Porcine) (Heparin 5000 units/ml) 5,000 units EVERY 12 HOURS SUBQ 05/08/20 09:00 06/22/20 08:59 05/12/20 21:08 Levetiracetam (Keppra) 250 mg Q12HR GT 05/06/20 21:00 06/20/20 20:59 05/12/20 21:09 Multivitamins (Multivitamins W/ Minerals 15ml Liquid) 5 ml DAILY GT 05/07/20 09:00 06/06/20 08:59 05/12/20 08:46 Potassium Chloride (K-Dur) 20 meq DAILY GT 05/13/20 09:00 08/11/20 08:59 Tamsulosin HCl (Flomax) 0.4 mg BEDTIME ORAL 05/06/20 21:00 06/05/20 20:59 05/12/20 21:12 Assessment/Plan Assessment/Plan ASSESSMENT: Pulmonary congestion, respiratory failure, hypoxemia dementia, G-tube, seizure disorder, congestive heart failure, COPD sepsis, and acute PA. acute on chronic CO2 retention PLAN: maintain oxygen and BIPAP as needed and repeat ABG. Breathing treatments and aspiration precautions. Monitor blood gases for change. IV antibiotic therapy. Maintain home meds and monitor with seizure medications. feeds and monitor residuals; DNR noted DVT prophylaxis continue as is monitor lytes trial of BIPAP as able impression, plan, and exam edited and reviewed in detail care discussed with Attila Yuna MD May 13, 2020 08:02
[2020-05-13] MEDS: Multivitamins W/Minerals 15 ML UDC GT SCH (08:45)
[2020-05-13] MEDS: levETIRAcetam 500mg/5ml Liquid GT SCH ×2 (08:45→20:22)
[2020-05-13] MEDS: Docusate 100mg/10ml Liq GT SCH ×2 (08:46→17:02)
[2020-05-13] MEDS: Aspirin Baby 81mg GT SCH (08:46)
[2020-05-13] MEDS: Ascorbic Acid 500mg tab GT SCH (08:46)
[2020-05-13] MEDS: Heparin 5000 units/ml inj SUBQ SCH ×2 (08:48→20:26)
--- NOTE | 2020-05-13 09:35 | General Progress Note ---
Subjective ROS Limited/Unobtainable: No Constitutional: Reports: malaise, weakness HEENT: Reports: no symptoms Cardiovascular: Reports: no symptoms Respiratory: Reports: no symptoms Gastrointestinal/Abdominal: Reports: no symptoms Genitourinary: Reports: no symptoms Neurologic/Psychiatric: Reports: no symptoms Endocrine: Reports: no symptoms Hematologic/Lymphatic: Reports: no symptoms Allergies: Coded Allergies: PENICILLINS (Unverified Allergy, Unknown, 08/11/19) All Systems: reviewed and negative except above Subjective remains on bipap. cooperative. follows simple commands. no fevers or chills. no sob. tolerating feeds. no vomiting. confused at baseline. no szs. overall seems very alert. more than baseline. Objective Last 24 Hour Vital Signs Date Time Temp Pulse Resp B/P (MAP) Pulse Ox O2 Delivery O2 Flow Rate FiO2 05/13/20 09:13 8.0 35 05/13/20 09:10 98 05/13/20 08:47 79 158/84 05/13/20 08:45 79 158/84 05/13/20 08:00 97.5 79 15 158/84 (108) 99 05/13/20 08:00 30 05/13/20 07:26 84 13 98 30 05/13/20 07:15 87 05/13/20 05:30 81 28 98 30 05/13/20 04:00 95 05/13/20 04:00 97.5 79 20 142/59 (86) 98 05/13/20 04:00 30 05/13/20 03:25 60 29 95 30 05/13/20 03:22 77 33 96 30 05/13/20 01:25 62 33 95 30 05/13/20 00:00 96.8 80 18 133/59 (83) 97 05/13/20 00:00 82 05/13/20 00:00 30 05/12/20 23:22 60 29 98 30 05/12/20 22:00 79 05/12/20 21:13 78 140/66 05/12/20 20:18 97.5 83 18 139/62 (87) 100 05/12/20 20:00 30 05/12/20 19:00 65 20 96 30 05/12/20 17:23 55 33 97 30 05/12/20 16:00 82 05/12/20 16:00 30 05/12/20 16:00 Bi-pap 05/12/20 16:00 98.1 68 16 143/77 (99) 100 05/12/20 15:00 80 33 98 30 05/12/20 13:14 79 33 98 30 05/12/20 12:00 98.6 71 30 122/51 (74) 98 05/12/20 12:00 30 05/12/20 12:00 Bi-pap 05/12/20 12:00 81 05/12/20 11:35 74 34 98 30 Intake and Output 05/12/20 05/13/20 19:00 07:00 Intake Total 1275 ml 1095 ml Output Total 2600 ml Balance 1275 ml -1505 ml Intake Free Water 210 ml 375 ml IV Total 105 ml Tube Feeding 960 ml 720 ml Output Urine Total 2600 ml # Voids 4 # Bowel Movements 3 Laboratory Tests 05/13/20 04:45: White Blood Count 8.7, Red Blood Count 4.50L, Hemoglobin 14.5, Hematocrit 46.2, Mean Corpuscular Volume 103H, Mean Corpuscular Hemoglobin 32.1H, Mean Corpuscular Hemoglobin Concent 31.3L, Red Cell Distribution Width 13.8, Platelet Count 141L, Mean Platelet Volume 10.8H, Neutrophils (%) (Auto) 68.9, Lymphocytes (%) (Auto) 17.2L, Monocytes (%) (Auto) 11.1H, Eosinophils (%) (Auto) 1.7, Basophils (%) (Auto) 1.2, Sodium Level 139, Potassium Level 4.2, Chloride Level 99, Carbon Dioxide Level 40H, Anion Gap 0L, Blood Urea Nitrogen 13, Creatinine 0.6, Estimat Glomerular Filtration Rate > 60, Glucose Level 117H, Calcium Level 8.7, Magnesium Level 2.1, Total Bilirubin 0.4, Aspartate Amino Transf (AST/SGOT) 31, Alanine Aminotransferase (ALT/SGPT) 35, Alkaline Phosphatase 101, Troponin I 0.021, Pro-B-Type Natriuretic Peptide 7298H, Total Protein 7.2, Albumin 2.7L, Globulin 4.5, Albumin/Globulin Ratio 0.6L Height (Feet): 5 Height (Inches): 6.00 Weight (Pounds): 137 Objective General Appearance: WD/WN, alert, confused EENT: normal ENT inspection Neck: normal alignment Cardiovascular: normal rate Respiratory/Chest: chest wall non-tender, lungs clear, normal breath sounds Abdomen: normal bowel sounds, non tender, soft, no organomegaly Edema: no edema noted Arm (L), no edema noted Arm (R) Neurologic: alert, disoriented Assessment/Plan Problem List: (1) Seizure ICD Codes: R56.9 - Unspecified convulsions SNOMED: 17665857 (2) Dysphagia ICD Codes: R13.10 - Dysphagia, unspecified SNOMED: 47423545, 625204008 (3) UTI (urinary tract infection) ICD Codes: N39.0 - Urinary tract infection, site not specified SNOMED: 65701336 (4) Elevated troponin I level ICD Codes: R77.8 - Other specified abnormalities of plasma proteins SNOMED: 851238610 (5) AMS (altered mental status) ICD Codes: R41.82 - Altered mental status, unspecified SNOMED: 433660702 (6) NSTEMI (non-ST elevated myocardial infarction) ICD Codes: I21.4 - Non-ST elevation (NSTEMI) myocardial infarction SNOMED: 62077455 Status: stable Assessment/Plan: cont bipap monitor abg- ordered for this am wean as able ivf as needed tube feeds sz rx. sz precautions iv abx monitor labs anxiolytics as needed o2 resp rx dvt/stress ulcer prophylaxis. poc d/w tyson. Jorge Kee MD May 13, 2020 09:35
--- NOTE | 2020-05-13 11:06 | Infectious Diseases Prog Note ---
Assessment/Plan Assessment/Plan antibiotics : none A 1. Urinary tract infection with E. coli s/p rx 2. MRSA nasal colonization. 3. CHF. 4. COPD. 5. Seizures. 6. Dementia. 7. He is negative for COVID-19. P 1. continue off antibiotics Subjective ROS Limited/Unobtainable: Yes Allergies: Coded Allergies: PENICILLINS (Unverified Allergy, Unknown, 08/11/19) Objective Last 24 Hour Vital Signs Date Time Temp Pulse Resp B/P (MAP) Pulse Ox O2 Delivery O2 Flow Rate FiO2 05/13/20 09:13 8.0 35 05/13/20 09:10 98 05/13/20 08:47 79 158/84 05/13/20 08:45 79 158/84 05/13/20 08:00 Simple Mask 8.0 05/13/20 08:00 97.5 79 15 158/84 (108) 99 05/13/20 08:00 30 05/13/20 07:26 84 13 98 30 05/13/20 07:15 87 05/13/20 05:30 81 28 98 30 05/13/20 04:00 95 05/13/20 04:00 97.5 79 20 142/59 (86) 98 05/13/20 04:00 30 05/13/20 03:25 60 29 95 30 05/13/20 03:22 77 33 96 30 05/13/20 01:25 62 33 95 30 05/13/20 00:00 96.8 80 18 133/59 (83) 97 05/13/20 00:00 82 05/13/20 00:00 30 05/12/20 23:22 60 29 98 30 05/12/20 22:00 79 05/12/20 21:13 78 140/66 05/12/20 20:18 97.5 83 18 139/62 (87) 100 05/12/20 20:00 30 05/12/20 19:00 65 20 96 30 05/12/20 17:23 55 33 97 30 05/12/20 16:00 82 05/12/20 16:00 30 05/12/20 16:00 Bi-pap 05/12/20 16:00 98.1 68 16 143/77 (99) 100 05/12/20 15:00 80 33 98 30 05/12/20 13:14 79 33 98 30 05/12/20 12:00 98.6 71 30 122/51 (74) 98 05/12/20 12:00 30 05/12/20 12:00 Bi-pap 05/12/20 12:00 81 05/12/20 11:35 74 34 98 30 Height (Feet): 5 Height (Inches): 6.00 Weight (Pounds): 137 Respiratory/Chest: lungs clear Cardiovascular: normal rate, regular rhythm, no gallop/murmur Abdomen: soft, non tender, other - GT Extremities: no edema Laboratory Tests Test 05/13/20 04:45 05/13/20 10:31 White Blood Count 8.7 K/UL (4.8-10.8) Red Blood Count 4.50 M/UL (4.70-6.10) L Hemoglobin 14.5 G/DL (14.2-18.0) Hematocrit 46.2 % (42.0-52.0) Mean Corpuscular Volume 103 FL (80-99) H Mean Corpuscular Hemoglobin 32.1 PG (27.0-31.0) H Mean Corpuscular Hemoglobin Concent 31.3 G/DL (32.0-36.0) L Red Cell Distribution Width 13.8 % (11.6-14.8) Platelet Count 141 K/UL (150-450) L Mean Platelet Volume 10.8 FL (6.5-10.1) H Neutrophils (%) (Auto) 68.9 % (45.0-75.0) Lymphocytes (%) (Auto) 17.2 % (20.0-45.0) L Monocytes (%) (Auto) 11.1 % (1.0-10.0) H Eosinophils (%) (Auto) 1.7 % (0.0-3.0) Basophils (%) (Auto) 1.2 % (0.0-2.0) Sodium Level 139 MMOL/L (136-145) Potassium Level 4.2 MMOL/L (3.5-5.1) Chloride Level 99 MMOL/L (98-107) Carbon Dioxide Level 40 MMOL/L (21-32) H Anion Gap 0 mmol/L (5-15) L Blood Urea Nitrogen 13 mg/dL (7-18) Creatinine 0.6 MG/DL (0.55-1.30) Estimat Glomerular Filtration Rate > 60 mL/min (>60) Glucose Level 117 MG/DL (74-106) H Calcium Level 8.7 MG/DL (8.5-10.1) Magnesium Level 2.1 MG/DL (1.8-2.4) Total Bilirubin 0.4 MG/DL (0.2-1.0) Aspartate Amino Transf (AST/SGOT) 31 U/L (15-37) Alanine Aminotransferase (ALT/SGPT) 35 U/L (12-78) Alkaline Phosphatase 101 U/L (46-116) Troponin I 0.021 ng/mL (0.000-0.056) Pro-B-Type Natriuretic Peptide 7298 pg/mL (0-125) H Total Protein 7.2 G/DL (6.4-8.2) Albumin 2.7 G/DL (3.4-5.0) L Globulin 4.5 g/dL Albumin/Globulin Ratio 0.6 (1.0-2.7) L Arterial Blood pH 7.360 (7.350-7.450) Arterial Blood Partial Pressure CO2 61.8 mmHg (35.0-45.0) *H Arterial Blood Partial Pressure O2 86.4 mmHg (75.0-100.0) Arterial Blood HCO3 34.1 mmol/L (22.0-26.0) H Arterial Blood Oxygen Saturation 96.0 % (95-100) Arterial Blood Base Excess 6.7 (-2-2) H Apollo Test Positive Current Medications Medications (Trade) Dose Ordered Sig/Mayela Route PRN Reason Start Time Stop Time Status Last Admin Dose Admin Acetaminophen (Tylenol) 650 mg Q4H PRN GT back pain 05/06/20 15:15 06/05/20 15:14 Acetazolamide (Diamox) 250 mg TWICE A DAY GT 05/13/20 09:00 06/12/20 08:59 05/13/20 08:46 Amlodipine Besylate (Norvasc) 5 mg DAILY GT 05/07/20 09:00 06/06/20 08:59 05/13/20 08:47 Ascorbic Acid (Vitamin C) 500 mg DAILY GT 05/07/20 09:00 06/06/20 08:59 05/13/20 08:46 Aspirin (ASA) 81 mg DAILY GT 05/07/20 09:00 06/21/20 08:59 05/13/20 08:46 Carvedilol (Coreg) 3.125 mg EVERY 12 HOURS GT 05/07/20 09:00 06/06/20 08:59 05/13/20 08:45 Clonidine HCl (Catapres Tab) 0.1 mg Q4H PRN ORAL SBP >160 05/08/20 22:15 08/06/20 22:14 Docusate Sodium (Colace) 200 mg BID GT 05/06/20 18:00 06/05/20 17:59 05/12/20 08:46 Heparin Sodium (Porcine) (Heparin 5000 units/ml) 5,000 units EVERY 12 HOURS SUBQ 05/08/20 09:00 06/22/20 08:59 05/13/20 08:48 Levetiracetam (Keppra) 250 mg Q12HR GT 05/06/20 21:00 06/20/20 20:59 05/13/20 08:45 Multivitamins (Multivitamins W/ Minerals 15ml Liquid) 5 ml DAILY GT 05/07/20 09:00 06/06/20 08:59 05/13/20 08:45 Potassium Chloride (K-Dur) 20 meq DAILY GT 05/13/20 09:00 08/11/20 08:59 05/13/20 08:46 Tamsulosin HCl (Flomax) 0.4 mg BEDTIME ORAL 05/06/20 21:00 06/05/20 20:59 05/12/20 21:12 Josué Light MD May 13, 2020 11:06
[2020-05-13 12:00] VITALS: BP 118/77
--- NOTE | 2020-05-13 13:08 | Consultation ---
History of Present Illness General Date patient seen: May 13, 2020 Reason for Hospitalization: Altered Mental Status Present Illness HPI 80-year-old male admitted to [facility] under medical care and management has since been identified to have concerns for deep tissue injury in the sacrum and bilateral heels as well as scrotal edema and facial abrasion from mask. Surgery called to eval and assist with care. Patient seen, patient evaluate, chart reviewed. Labs noted. Patient respiratory insufficiency requiring oxygen supplementation quick desaturation shallow breaths. Limited history obtainable from patient. DNR/DNI status. Allergies: Coded Allergies: PENICILLINS (Unverified Allergy, Unknown, 08/11/19) COVID-19 Screening Contact w/high risk pt: No Experienced COVID-19 symptoms?: No Medication History Scheduled Docusate Sodium* (Colace*), 200 MG GT BID, (Reported) Donepezil Hcl* (Donepezil Hcl*), 5 MG GT DAILY, (Reported) Furosemide* (Lasix*), 20 MG GT DAILY, (Reported) Levetiracetam (Keppra), 2.5 ML GT TWICE A DAY, (Reported) Multivitamin With Minerals (One Daily Plus Minerals), 1 TAB GT DAILY, (Reported) Vit A/Vitamin D3/E/Aloe V/Znox (Periguard Ointment), 100 GM TP DAILY, (Reported) Discontinued Medications Acetaminophen* (Acetaminophen 325MG Tablet*), 650 MG ORAL Q4H PRN for back pain , (Reported) Discontinued Reason: Therapy completed Amlodipine Besylate* (Amlodipine Besylate*), 10 MG GT DAILY, (Reported) Discontinued Reason: Therapy completed Ascorbic Acid* (Vitamin C*), 500 MG GT DAILY, (Reported) Discontinued Reason: Therapy completed Hydrochlorothiazide* (Hydrochlorothiazide*), 12.5 MG GT DAILY, (Reported) Discontinued Reason: Therapy completed Hydrocodone Bit/Acetaminophen 5-325* (Dewar 5-325*), 1 TAB ORAL Q6H PRN for For Pain, (Reported) Discontinued Reason: Therapy completed Olanzapine* (Zyprexa*), 5 MG GT BEDTIME, (Reported) Discontinued Reason: Therapy completed Phenytoin (Phenytoin*), 200 MG ORAL TWICE A DAY, (Reported) Discontinued Reason: Therapy completed Tamsulosin HCl (Flomax), 0.4 MG GT BEDTIME, (Reported) Discontinued Reason: Therapy completed Patient History Limited by: medical condition History Provided By: Medical Record, PMD Healthcare decision maker N Resuscitation status Advanced Directive on File Past Medical/Surgical History Past Medical/Surgical History: (1) UTI (urinary tract infection) (2) Elevated troponin I level (3) AMS (altered mental status) (4) Dysphagia (5) Seizure (6) NSTEMI (non-ST elevated myocardial infarction) (7) Dementia with behavioral problem (8) Deep tissue injury Review of Systems Review of Symptoms General ROS: no weight loss or fever Psychological ROS: no depression or mood changes, no memory loss Ophthalmic ROS: no visual changes or eye irritation ENT ROS: no nasal congestion, hearing loss, dizziness Allergy and Immunology ROS: no allergic symptoms or urticaria Hematological and Lymphatic ROS: no swollen glands, unusual bleeding or bruising Endocrine ROS: no polyuria, polydipsia, weight changes, temperature intolerance Respiratory ROS: no cough, shortness of breath, or wheezing Cardiovascular ROS: no chest pain or dyspnea on exertion Gastrointestinal ROS: denies abdominal pain, bright red blood in stool. Musculoskeletal ROS: no myalgias or arthralgias Neurological ROS: no TIA or stroke symptoms Dermatological ROS: no new or changing skin lesions, rashes or pruritis Physical Exam Physical Exam General appearance: alert, cooperative, no distress, appears stated age Head: Normocephalic, without obvious abnormality, atraumatic Eyes: conjunctivae/corneas clear. PERRL, EOM's intact. Fundi benign Throat: Lips, mucosa, and tongue normal. Teeth and gums normal Neck: supple, symmetrical, trachea midline, no adenopathy, thyroid: not enlarged, symmetric, no tenderness/mass/nodules, no carotid bruit and no JVD Lungs: clear to auscultation bilaterally Heart: regular rate and rhythm, S1, S2 normal, no murmur, click, rub or gallop Abdomen: soft, non-tender. Bowel sounds normal. No masses, no organomegaly Extremities: extremities normal, atraumatic, no cyanosis or edema Pulses: 2+ and symmetric Skin: Skin see below Neurologic: Grossly normal Last 24 Hour Vital Signs Date Time Temp Pulse Resp B/P (MAP) Pulse Ox O2 Delivery O2 Flow Rate FiO2 05/13/20 12:00 97.5 83 20 118/77 (91) 99 05/13/20 12:00 82 05/13/20 11:24 98 05/13/20 09:13 8.0 35 05/13/20 09:10 98 05/13/20 08:47 79 158/84 05/13/20 08:45 79 158/84 05/13/20 08:00 Simple Mask 8.0 05/13/20 08:00 97.5 79 15 158/84 (108) 99 05/13/20 08:00 30 05/13/20 07:26 84 13 98 30 05/13/20 07:15 87 05/13/20 05:30 81 28 98 30 05/13/20 04:00 95 05/13/20 04:00 97.5 79 20 142/59 (86) 98 05/13/20 04:00 30 05/13/20 03:25 60 29 95 30 05/13/20 03:22 77 33 96 30 05/13/20 01:25 62 33 95 30 05/13/20 00:00 96.8 80 18 133/59 (83) 97 05/13/20 00:00 82 05/13/20 00:00 30 05/12/20 23:22 60 29 98 30 05/12/20 22:00 79 05/12/20 21:13 78 140/66 05/12/20 20:18 97.5 83 18 139/62 (87) 100 05/12/20 20:00 30 05/12/20 19:00 65 20 96 30 05/12/20 17:23 55 33 97 30 05/12/20 16:00 82 05/12/20 16:00 30 05/12/20 16:00 Bi-pap 05/12/20 16:00 98.1 68 16 143/77 (99) 100 05/12/20 15:00 80 33 98 30 05/12/20 13:14 79 33 98 30 Intake and Output 05/12/20 05/13/20 19:00 07:00 Intake Total 1275 ml 1095 ml Output Total 2600 ml Balance 1275 ml -1505 ml Intake Free Water 210 ml 375 ml IV Total 105 ml Tube Feeding 960 ml 720 ml Output Urine Total 2600 ml # Voids 4 # Bowel Movements 3 Laboratory Tests Test 05/13/20 04:45 05/13/20 10:31 White Blood Count 8.7 K/UL (4.8-10.8) Red Blood Count 4.50 M/UL (4.70-6.10) L Hemoglobin 14.5 G/DL (14.2-18.0) Hematocrit 46.2 % (42.0-52.0) Mean Corpuscular Volume 103 FL (80-99) H Mean Corpuscular Hemoglobin 32.1 PG (27.0-31.0) H Mean Corpuscular Hemoglobin Concent 31.3 G/DL (32.0-36.0) L Red Cell Distribution Width 13.8 % (11.6-14.8) Platelet Count 141 K/UL (150-450) L Mean Platelet Volume 10.8 FL (6.5-10.1) H Neutrophils (%) (Auto) 68.9 % (45.0-75.0) Lymphocytes (%) (Auto) 17.2 % (20.0-45.0) L Monocytes (%) (Auto) 11.1 % (1.0-10.0) H Eosinophils (%) (Auto) 1.7 % (0.0-3.0) Basophils (%) (Auto) 1.2 % (0.0-2.0) Sodium Level 139 MMOL/L (136-145) Potassium Level 4.2 MMOL/L (3.5-5.1) Chloride Level 99 MMOL/L (98-107) Carbon Dioxide Level 40 MMOL/L (21-32) H Anion Gap 0 mmol/L (5-15) L Blood Urea Nitrogen 13 mg/dL (7-18) Creatinine 0.6 MG/DL (0.55-1.30) Estimat Glomerular Filtration Rate > 60 mL/min (>60) Glucose Level 117 MG/DL (74-106) H Calcium Level 8.7 MG/DL (8.5-10.1) Magnesium Level 2.1 MG/DL (1.8-2.4) Total Bilirubin 0.4 MG/DL (0.2-1.0) Aspartate Amino Transf (AST/SGOT) 31 U/L (15-37) Alanine Aminotransferase (ALT/SGPT) 35 U/L (12-78) Alkaline Phosphatase 101 U/L (46-116) Troponin I 0.021 ng/mL (0.000-0.056) Pro-B-Type Natriuretic Peptide 7298 pg/mL (0-125) H Total Protein 7.2 G/DL (6.4-8.2) Albumin 2.7 G/DL (3.4-5.0) L Globulin 4.5 g/dL Albumin/Globulin Ratio 0.6 (1.0-2.7) L Arterial Blood pH 7.360 (7.350-7.450) Arterial Blood Partial Pressure CO2 61.8 mmHg (35.0-45.0) *H Arterial Blood Partial Pressure O2 86.4 mmHg (75.0-100.0) Arterial Blood HCO3 34.1 mmol/L (22.0-26.0) H Arterial Blood Oxygen Saturation 96.0 % (95-100) Arterial Blood Base Excess 6.7 (-2-2) H Apollo Test Positive Height (Feet): 5 Height (Inches): 6.00 Weight (Pounds): 137 Medications Current Medications Medications (Trade) Dose Ordered Sig/Mayela Route PRN Reason Start Time Stop Time Status Last Admin Dose Admin Acetaminophen (Tylenol) 650 mg Q4H PRN GT back pain 05/06/20 15:15 06/05/20 15:14 Acetazolamide (Diamox) 250 mg TWICE A DAY GT 05/13/20 09:00 06/12/20 08:59 05/13/20 08:46 Amlodipine Besylate (Norvasc) 5 mg DAILY GT 05/07/20 09:00 06/06/20 08:59 05/13/20 08:47 Ascorbic Acid (Vitamin C) 500 mg DAILY GT 05/07/20 09:00 06/06/20 08:59 05/13/20 08:46 Aspirin (ASA) 81 mg DAILY GT 05/07/20 09:00 06/21/20 08:59 05/13/20 08:46 Carvedilol (Coreg) 3.125 mg EVERY 12 HOURS GT 05/07/20 09:00 06/06/20 08:59 05/13/20 08:45 Clonidine HCl (Catapres Tab) 0.1 mg Q4H PRN ORAL SBP >160 05/08/20 22:15 08/06/20 22:14 Docusate Sodium (Colace) 200 mg BID GT 05/06/20 18:00 06/05/20 17:59 05/12/20 08:46 Heparin Sodium (Porcine) (Heparin 5000 units/ml) 5,000 units EVERY 12 HOURS SUBQ 05/08/20 09:00 06/22/20 08:59 05/13/20 08:48 Levetiracetam (Keppra) 250 mg Q12HR GT 05/06/20 21:00 06/20/20 20:59 05/13/20 08:45 Multivitamins (Multivitamins W/ Minerals 15ml Liquid) 5 ml DAILY GT 05/07/20 09:00 06/06/20 08:59 05/13/20 08:45 Potassium Chloride (K-Dur) 20 meq DAILY GT 05/13/20 09:00 08/11/20 08:59 05/13/20 08:46 Tamsulosin HCl (Flomax) 0.4 mg BEDTIME ORAL 05/06/20 21:00 06/05/20 20:59 05/12/20 21:12 Assessment/Plan Problem List: (1) Deep tissue injury Assessment & Plan: Patient identified to have bilateral heel concerns for potential developing DTI. Soft boggy no fluid collection no acute injury at this time. Patient identified to have sacral erythema and skin changes with concerns for developing deep tissue injury as well. No open areas. No fluid collections no fluctuance no drainage. On the scrotum patient is identified to have edema erythema and some abrasion along with incontinence associated dermatitis in the area. Patient identified to have abrasion to the nasal brim secondary to a facemask placement. Patient is chronically ill elderly and malnourished. Wound evaluated and care plan initiated. Treatment plan Apply skin protectant to the nasal bridge followed by foam dressing prior to facemask placement. Patient currently requires oxygen supplementation and therefore important to ensure receiving such along with protection of underlying epidermis. Apply OPTi foam to heels change every 3 days offload pressure with pillows Apply OPTi foam to sacral area monitor for incontinence change accordingly every 3 days and as needed saturation. Soft towel under scrotum. Continue with respiratory supportive care Turn every 2 hours Offload pressure with pillows Continue tube feeds nutritional optimization we will follow with recommendations thank you for let me participate patient's care ICD Codes: T14.8XXA - Other injury of unspecified body region, initial encounter SNOMED: 003825071 (2) Dementia with behavioral problem ICD Codes: F03.91 - Unspecified dementia with behavioral disturbance SNOMED: 0204105596559 (3) UTI (urinary tract infection) ICD Codes: N39.0 - Urinary tract infection, site not specified SNOMED: 01324375 (4) Elevated troponin I level ICD Codes: R77.8 - Other specified abnormalities of plasma proteins SNOMED: 665657588 (5) AMS (altered mental status) ICD Codes: R41.82 - Altered mental status, unspecified SNOMED: 727491655 (6) Dysphagia Assessment & Plan: DAILY ESTIMATED NEEDS: Needs based on Pulmonary, cardiac, 62kg 25-30 kcals/kg 1990-7070 total kcals 1-1.5 g protein/kg 62-93 g total protein 25-30 mL/kg 4357-0573 total fluid mLs NUTRITION DIAGNOSIS: Swallowing difficulty r/t dysphagia as evidenced by pt is PEG dep, currently on continuous BIPAP. CURRENT TF: Glucerna 1.5 @ 40ml/hr ENTERAL NUTRITION RECOMMENDATIONS: Glucerna 1.5 goal of 45ml/hr x 24 hrs to provide 1080ml, 1620 kcal, 89g pro, 820ml free water * Maintain carb controlled TF of Glucerna 1.5 while CO2 critically elevated * As medically appropriate, increase goal rate to 45ml/hr x 24 hrs to better meet nutritional needs. * HOB over 30 degrees/ water flush per MD ADDITIONAL RECOMMENDATIONS: 1) Monitor BIPAP usage, safety of GT feeds -> continuous BIPAP at this time 2) Lytes daily, replete as needed Current TF Glucerna 1.5 @goal of 40ml/hr provides 2419mg K/day 3) Calibrated bed scale wts (Bed scale shows uptrend: 65kg-> 71kg) 4) Rec HgA1C for eval of BG control 5) F/up w/ WC eval: Continue MVI and Vit C ICD Codes: R13.10 - Dysphagia, unspecified SNOMED: 41664345, 202688496 (7) Seizure ICD Codes: R56.9 - Unspecified convulsions SNOMED: 10978963 (8) NSTEMI (non-ST elevated myocardial infarction) ICD Codes: I21.4 - Non-ST elevation (NSTEMI) myocardial infarction SNOMED: 98788386 Benitez Mayorga May 13, 2020 13:08
[2020-05-13 16:00] VITALS: BP 142/85
[2020-05-13] MEDS ORDERED: NS 500ML ONE (18:30)
[2020-05-13 20:00] VITALS: BP 134/54
[2020-05-13] MEDS: Tamsulosin 0.4mg cap ORAL SCH (20:31)
[2020-05-14] VITALS (7 sets, daily range): BP systolic 104–134; BP diastolic 57–86
--- NOTE | 2020-05-14 01:15 | Cardiology Progress Note ---
Subjective Still on bipap. Seems more comfortable with breathing. O2 requirements decreasing; acid-base parameters remain tenuous. 7.32/62/86 (05/13/20) Troponin has normalized proBNP remains elevated over 7200 Objective Last 24 Hour Vital Signs Date Time Temp Pulse Resp B/P (MAP) Pulse Ox O2 Delivery O2 Flow Rate FiO2 05/13/20 20:21 79 130/60 05/13/20 20:00 97.0 78 24 134/54 (80) 100 05/13/20 20:00 8.0 35 05/13/20 20:00 Venturi Mask 8.0 05/13/20 19:28 92 05/13/20 19:10 98 Venturi Mask 8.0 35 05/13/20 16:00 97.5 65 22 142/85 (104) 97 05/13/20 16:00 8.0 35 05/13/20 16:00 Venturi Mask 8.0 05/13/20 15:49 80 05/13/20 12:00 97.5 83 20 118/77 (91) 99 05/13/20 12:00 82 05/13/20 12:00 Venturi Mask 8.0 05/13/20 11:24 98 05/13/20 10:42 98 Venturi Mask 8.0 35 05/13/20 09:13 8.0 35 05/13/20 09:10 98 05/13/20 08:47 79 158/84 05/13/20 08:45 79 158/84 05/13/20 08:00 Simple Mask 8.0 05/13/20 08:00 97.5 79 15 158/84 (108) 99 05/13/20 08:00 30 05/13/20 07:26 84 13 98 30 05/13/20 07:15 87 05/13/20 05:30 81 28 98 30 05/13/20 04:00 95 05/13/20 04:00 97.5 79 20 142/59 (86) 98 05/13/20 04:00 30 05/13/20 03:25 60 29 95 30 05/13/20 03:22 77 33 96 30 05/13/20 01:25 62 33 95 30 ROS: unchanged from my evaluation of 05/06/20 RHYTHM: NSR LUNGS: diminished breath sounds CARDIAC: normal rate, regular rhythm, normal S1 and S2 ABDOMEN: G-Tube intact EXTREMITIES: non-pitting, No edema Laboratory Tests Test 05/13/20 04:45 05/13/20 10:31 White Blood Count 8.7 K/UL (4.8-10.8) Red Blood Count 4.50 M/UL (4.70-6.10) L Hemoglobin 14.5 G/DL (14.2-18.0) Hematocrit 46.2 % (42.0-52.0) Mean Corpuscular Volume 103 FL (80-99) H Mean Corpuscular Hemoglobin 32.1 PG (27.0-31.0) H Mean Corpuscular Hemoglobin Concent 31.3 G/DL (32.0-36.0) L Red Cell Distribution Width 13.8 % (11.6-14.8) Platelet Count 141 K/UL (150-450) L Mean Platelet Volume 10.8 FL (6.5-10.1) H Neutrophils (%) (Auto) 68.9 % (45.0-75.0) Lymphocytes (%) (Auto) 17.2 % (20.0-45.0) L Monocytes (%) (Auto) 11.1 % (1.0-10.0) H Eosinophils (%) (Auto) 1.7 % (0.0-3.0) Basophils (%) (Auto) 1.2 % (0.0-2.0) Sodium Level 139 MMOL/L (136-145) Potassium Level 4.2 MMOL/L (3.5-5.1) Chloride Level 99 MMOL/L (98-107) Carbon Dioxide Level 40 MMOL/L (21-32) H Anion Gap 0 mmol/L (5-15) L Blood Urea Nitrogen 13 mg/dL (7-18) Creatinine 0.6 MG/DL (0.55-1.30) Estimat Glomerular Filtration Rate > 60 mL/min (>60) Glucose Level 117 MG/DL (74-106) H Calcium Level 8.7 MG/DL (8.5-10.1) Magnesium Level 2.1 MG/DL (1.8-2.4) Total Bilirubin 0.4 MG/DL (0.2-1.0) Aspartate Amino Transf (AST/SGOT) 31 U/L (15-37) Alanine Aminotransferase (ALT/SGPT) 35 U/L (12-78) Alkaline Phosphatase 101 U/L (46-116) Troponin I 0.021 ng/mL (0.000-0.056) Pro-B-Type Natriuretic Peptide 7298 pg/mL (0-125) H Total Protein 7.2 G/DL (6.4-8.2) Albumin 2.7 G/DL (3.4-5.0) L Globulin 4.5 g/dL Albumin/Globulin Ratio 0.6 (1.0-2.7) L Arterial Blood pH 7.360 (7.350-7.450) Arterial Blood Partial Pressure CO2 61.8 mmHg (35.0-45.0) *H Arterial Blood Partial Pressure O2 86.4 mmHg (75.0-100.0) Arterial Blood HCO3 34.1 mmol/L (22.0-26.0) H Arterial Blood Oxygen Saturation 96.0 % (95-100) Arterial Blood Base Excess 6.7 (-2-2) H Apollo Test Positive Assessment/Plan Assessment/Plan E.coli UTI Sepsis Metabolic and toxic encephalopathies Cerebrovascular disease with dementia Acute myocardial ischemia and possible NSTEMI Hypovolemia and dehydration corrected Hypertension/HHD Ac/chronic respiratory acidosis Ac diastolic CHF Metabolic acidosis Continue anti-anginal regimen; titrate meds for BP control. Off IVF Antimicrobials Diuresis with loop diuretic and acetazolamide. Monitor acid-base parameters. Real Magana MD May 14, 2020 01:15
--- NOTE | 2020-05-14 04:12 | Cardiology Report ---
APPROVED REPORT EKG Measurement Heart [id number] [id number] <Conclusion> Sinus tachycardia with occasional premature ventricular complexes Left axis deviation Inferior infarct, age undetermined Possible Anterior infarct, age undetermined Abnormal ECG
--- NOTE | 2020-05-14 07:59 | General Progress Note ---
Subjective ROS Limited/Unobtainable: No Constitutional: Reports: malaise, weakness HEENT: Reports: no symptoms Cardiovascular: Reports: no symptoms Respiratory: Reports: cough, shortness of breath Gastrointestinal/Abdominal: Reports: no symptoms Genitourinary: Reports: no symptoms Neurologic/Psychiatric: Reports: pre-existing deficit, seizure Endocrine: Reports: no symptoms Hematologic/Lymphatic: Reports: anemia Allergies: Coded Allergies: PENICILLINS (Unverified Allergy, Unknown, 08/11/19) All Systems: reviewed and negative except above Subjective on venti mask. lethargic. shallow respirations. intermittent agitation. pulls of mask. Per staff quickly desaturates. tolerating feeds. no reports of seizures Objective Last 24 Hour Vital Signs Date Time Temp Pulse Resp B/P (MAP) Pulse Ox O2 Delivery O2 Flow Rate FiO2 05/14/20 04:00 97.3 77 28 134/86 (102) 99 05/14/20 04:00 84 05/14/20 04:00 8.0 35 05/14/20 04:00 Venturi Mask 8.0 05/14/20 00:00 97.2 77 22 134/86 (102) 97 05/14/20 00:00 Venturi Mask 8.0 05/14/20 00:00 83 05/13/20 20:21 79 130/60 05/13/20 20:00 97.0 78 24 134/54 (80) 100 05/13/20 20:00 8.0 35 05/13/20 20:00 Venturi Mask 8.0 05/13/20 19:28 92 05/13/20 19:10 98 Venturi Mask 8.0 35 05/13/20 16:00 97.5 65 22 142/85 (104) 97 05/13/20 16:00 8.0 35 05/13/20 16:00 Venturi Mask 8.0 05/13/20 15:49 80 05/13/20 12:00 97.5 83 20 118/77 (91) 99 05/13/20 12:00 82 05/13/20 12:00 Venturi Mask 8.0 05/13/20 11:24 98 05/13/20 10:42 98 Venturi Mask 8.0 35 05/13/20 09:13 8.0 35 05/13/20 09:10 98 05/13/20 08:47 79 158/84 05/13/20 08:45 79 158/84 05/13/20 08:00 Simple Mask 8.0 05/13/20 08:00 97.5 79 15 158/84 (108) 99 05/13/20 08:00 30 Intake and Output 05/13/20 05/14/20 19:00 07:00 Intake Total 600 ml 660 ml Output Total 1000 ml 1400 ml Balance -400 ml -740 ml Intake Free Water 120 ml 180 ml Tube Feeding 480 ml 480 ml Output Urine Total 1000 ml 1400 ml # Voids 2 # Bowel Movements 2 Laboratory Tests 05/13/20 10:31: Arterial Blood pH 7.360, Arterial Blood Partial Pressure CO2 61.8*H, Arterial Blood Partial Pressure O2 86.4, Arterial Blood HCO3 34.1H, Arterial Blood Oxygen Saturation 96.0, Arterial Blood Base Excess 6.7H, Apollo Test Positive Height (Feet): 5 Height (Inches): 6.00 Weight (Pounds): 137 Objective General Appearance: WD/WN, alert, confused EENT: normal ENT inspection Neck: normal alignment Cardiovascular: normal rate Respiratory/Chest: chest wall non-tender, lungs clear, normal breath sounds Abdomen: normal bowel sounds, non tender, soft, no organomegaly Edema: no edema noted Arm (L), no edema noted Arm (R) Neurologic: alert, disoriented Assessment/Plan Problem List: (1) Seizure ICD Codes: R56.9 - Unspecified convulsions SNOMED: 70043797 (2) Dysphagia ICD Codes: R13.10 - Dysphagia, unspecified SNOMED: 99324415, 234989510 (3) UTI (urinary tract infection) ICD Codes: N39.0 - Urinary tract infection, site not specified SNOMED: 10236634 (4) Elevated troponin I level ICD Codes: R77.8 - Other specified abnormalities of plasma proteins SNOMED: 368661168 (5) AMS (altered mental status) ICD Codes: R41.82 - Altered mental status, unspecified SNOMED: 166404237 (6) NSTEMI (non-ST elevated myocardial infarction) ICD Codes: I21.4 - Non-ST elevation (NSTEMI) myocardial infarction SNOMED: 76903837 Status: stable Assessment/Plan: stable on venti mask monitor abg- ordered for this am wean o2 as able tube feeds sz rx. sz precautions iv abx monitor labs anxiolytics as needed o2 resp rx dvt/stress ulcer prophylaxis. Jorge Kee MD May 14, 2020 07:59
[2020-05-14] MEDS: Docusate 100mg/10ml Liq GT SCH ×2 (08:46→17:37)
[2020-05-14] MEDS: Multivitamins W/Minerals 15 ML UDC GT SCH (08:46)
[2020-05-14] MEDS: Ascorbic Acid 500mg tab GT SCH (08:47)
[2020-05-14] MEDS: levETIRAcetam 500mg/5ml Liquid GT SCH ×2 (08:47→20:39)
[2020-05-14] MEDS: Heparin 5000 units/ml inj SUBQ SCH ×2 (08:48→20:40)
[2020-05-14] MEDS: Aspirin Baby 81mg GT SCH (08:48)
--- NOTE | 2020-05-14 09:05 | Surgery Progress Note ---
Surgery Progress Note Subjective Additional Comments requiring respiratory support no n/v tolerating tf Objective Last 24 Hour Vital Signs Date Time Temp Pulse Resp B/P (MAP) Pulse Ox O2 Delivery O2 Flow Rate FiO2 05/14/20 08:47 78 132/58 05/14/20 08:47 78 132/58 05/14/20 08:00 Venturi Mask 8.0 05/14/20 08:00 8.0 35 05/14/20 08:00 97.0 78 26 132/58 (82) 99 05/14/20 04:00 97.3 77 28 134/86 (102) 99 05/14/20 04:00 84 05/14/20 04:00 8.0 35 05/14/20 04:00 Venturi Mask 8.0 05/14/20 00:00 97.2 77 22 134/86 (102) 97 05/14/20 00:00 Venturi Mask 8.0 05/14/20 00:00 83 05/13/20 20:21 79 130/60 05/13/20 20:00 97.0 78 24 134/54 (80) 100 05/13/20 20:00 8.0 35 05/13/20 20:00 Venturi Mask 8.0 05/13/20 19:28 92 05/13/20 19:10 98 Venturi Mask 8.0 35 05/13/20 16:00 97.5 65 22 142/85 (104) 97 05/13/20 16:00 8.0 35 05/13/20 16:00 Venturi Mask 8.0 05/13/20 15:49 80 05/13/20 12:00 97.5 83 20 118/77 (91) 99 05/13/20 12:00 82 05/13/20 12:00 Venturi Mask 8.0 05/13/20 11:24 98 05/13/20 10:42 98 Venturi Mask 8.0 35 05/13/20 09:13 8.0 35 05/13/20 09:10 98 I&O Intake and Output 05/13/20 05/14/20 19:00 07:00 Intake Total 600 ml 660 ml Output Total 1000 ml 1400 ml Balance -400 ml -740 ml Intake Free Water 120 ml 180 ml Tube Feeding 480 ml 480 ml Output Urine Total 1000 ml 1400 ml # Voids 2 # Bowel Movements 2 Dressing: dry Cardiovascular: RSR Respiratory: decreased breath sounds Abdomen: soft, non-tender, present bowel sounds Extremities: no edema, no tenderness, no cyanosis, other Laboratory Tests Test 05/13/20 10:31 Arterial Blood pH 7.360 (7.350-7.450) Arterial Blood Partial Pressure CO2 61.8 mmHg (35.0-45.0) *H Arterial Blood Partial Pressure O2 86.4 mmHg (75.0-100.0) Arterial Blood HCO3 34.1 mmol/L (22.0-26.0) H Arterial Blood Oxygen Saturation 96.0 % (95-100) Arterial Blood Base Excess 6.7 (-2-2) H Apollo Test Positive Plan Problems: (1) Deep tissue injury Assessment & Plan: Patient identified to have bilateral heel concerns for potential developing DTI. Soft boggy no fluid collection no acute injury at this time. Patient identified to have sacral erythema and skin changes with concerns for developing deep tissue injury as well. No open areas. No fluid collections no fluctuance no drainage. On the scrotum patient is identified to have edema erythema and some abrasion along with incontinence associated dermatitis in the area. Patient identified to have abrasion to the nasal brim secondary to a facemask placement. Patient is chronically ill elderly and malnourished. Wound evaluated and care plan initiated. Treatment plan Apply skin protectant to the nasal bridge followed by foam dressing prior to facemask placement. Patient currently requires oxygen supplementation and therefore important to ensure receiving such along with protection of underlying epidermis. Apply OPTi foam to heels change every 3 days offload pressure with pillows Apply OPTi foam to sacral area monitor for incontinence change accordingly every 3 days and as needed saturation. Soft towel under scrotum. Continue with respiratory supportive care Turn every 2 hours Offload pressure with pillows Continue tube feeds nutritional optimization we will follow with recommendations thank you for let me participate patient's care (2) Dementia with behavioral problem (3) UTI (urinary tract infection) (4) Elevated troponin I level (5) AMS (altered mental status) (6) Dysphagia Assessment & Plan: DAILY ESTIMATED NEEDS: Needs based on Pulmonary, cardiac, 62kg 25-30 kcals/kg 2878-0882 total kcals 1-1.5 g protein/kg 62-93 g total protein 25-30 mL/kg 6333-0571 total fluid mLs NUTRITION DIAGNOSIS: Swallowing difficulty r/t dysphagia as evidenced by pt is PEG dep, currently on continuous BIPAP. CURRENT TF: Glucerna 1.5 @ 40ml/hr ENTERAL NUTRITION RECOMMENDATIONS: Glucerna 1.5 goal of 45ml/hr x 24 hrs to provide 1080ml, 1620 kcal, 89g pro, 820ml free water * Maintain carb controlled TF of Glucerna 1.5 while CO2 critically elevated * As medically appropriate, increase goal rate to 45ml/hr x 24 hrs to better meet nutritional needs. * HOB over 30 degrees/ water flush per MD ADDITIONAL RECOMMENDATIONS: 1) Monitor BIPAP usage, safety of GT feeds -> continuous BIPAP at this time 2) Lytes daily, replete as needed Current TF Glucerna 1.5 @goal of 40ml/hr provides 2419mg K/day 3) Calibrated bed scale wts (Bed scale shows uptrend: 65kg-> 71kg) 4) Rec HgA1C for eval of BG control 5) F/up w/ WC eval: Continue MVI and Vit C (7) Seizure (8) NSTEMI (non-ST elevated myocardial infarction) Bneitez Mayorga May 14, 2020 09:05
--- NOTE | 2020-05-14 09:33 | Pulmonology Progress Note ---
Subjective ROS Limited/Unobtainable: Yes Constitutional: Denies: fever Allergies: Coded Allergies: PENICILLINS (Unverified Allergy, Unknown, 08/11/19) All Systems: reviewed and negative except above Subjective care noted off BIPAP and noted worsening retention no distress acid base worse Objective Last 24 Hour Vital Signs Date Time Temp Pulse Resp B/P (MAP) Pulse Ox O2 Delivery O2 Flow Rate FiO2 05/14/20 08:47 78 132/58 05/14/20 08:47 78 132/58 05/14/20 08:00 Venturi Mask 8.0 05/14/20 08:00 8.0 35 05/14/20 08:00 97.0 78 26 132/58 (82) 99 05/14/20 04:00 97.3 77 28 134/86 (102) 99 05/14/20 04:00 84 05/14/20 04:00 8.0 35 05/14/20 04:00 Venturi Mask 8.0 05/14/20 00:00 97.2 77 22 134/86 (102) 97 05/14/20 00:00 Venturi Mask 8.0 05/14/20 00:00 83 05/13/20 20:21 79 130/60 05/13/20 20:00 97.0 78 24 134/54 (80) 100 05/13/20 20:00 8.0 35 05/13/20 20:00 Venturi Mask 8.0 05/13/20 19:28 92 05/13/20 19:10 98 Venturi Mask 8.0 35 05/13/20 16:00 97.5 65 22 142/85 (104) 97 05/13/20 16:00 8.0 35 05/13/20 16:00 Venturi Mask 8.0 05/13/20 15:49 80 05/13/20 12:00 97.5 83 20 118/77 (91) 99 05/13/20 12:00 82 05/13/20 12:00 Venturi Mask 8.0 05/13/20 11:24 98 05/13/20 10:42 98 Venturi Mask 8.0 35 Intake and Output 05/13/20 05/14/20 19:00 07:00 Intake Total 600 ml 660 ml Output Total 1000 ml 1400 ml Balance -400 ml -740 ml Intake Free Water 120 ml 180 ml Tube Feeding 480 ml 480 ml Output Urine Total 1000 ml 1400 ml # Voids 2 # Bowel Movements 2 Objective WDWN NAD reduced breath sounds bilaterally without rhonchi [id number] without MRG NABS nontender no CC some edema nonfocal on BIPAP reduced LOC Laboratory Tests 05/13/20 10:31: Arterial Blood pH 7.360, Arterial Blood Partial Pressure CO2 61.8*H, Arterial Blood Partial Pressure O2 86.4, Arterial Blood HCO3 34.1H, Arterial Blood Oxygen Saturation 96.0, Arterial Blood Base Excess 6.7H, Apollo Test Positive 05/14/20 09:16: Arterial Blood pH 7.307L, Arterial Blood Partial Pressure CO2 72.2*H, Arterial Blood Partial Pressure O2 84.3, Arterial Blood HCO3 35.3H, Arterial Blood Oxygen Saturation 95.7, Arterial Blood Base Excess 6.5H, Apollo Test Positive Current Medications Medications (Trade) Dose Ordered Sig/Mayela Route PRN Reason Start Time Stop Time Status Last Admin Dose Admin Acetaminophen (Tylenol) 650 mg Q4H PRN GT back pain 05/06/20 15:15 06/05/20 15:14 Acetazolamide (Diamox) 250 mg TWICE A DAY GT 05/13/20 09:00 06/12/20 08:59 05/14/20 08:48 Amlodipine Besylate (Norvasc) 5 mg DAILY GT 05/07/20 09:00 06/06/20 08:59 05/14/20 08:47 Ascorbic Acid (Vitamin C) 500 mg DAILY GT 05/07/20 09:00 06/06/20 08:59 05/14/20 08:47 Aspirin (ASA) 81 mg DAILY GT 05/07/20 09:00 06/21/20 08:59 05/14/20 08:48 Carvedilol (Coreg) 3.125 mg EVERY 12 HOURS GT 05/07/20 09:00 06/06/20 08:59 05/14/20 08:47 Clonidine HCl (Catapres Tab) 0.1 mg Q4H PRN ORAL SBP >160 05/08/20 22:15 08/06/20 22:14 Docusate Sodium (Colace) 200 mg BID GT 05/06/20 18:00 06/05/20 17:59 05/14/20 08:46 Heparin Sodium (Porcine) (Heparin 5000 units/ml) 5,000 units EVERY 12 HOURS SUBQ 05/08/20 09:00 06/22/20 08:59 05/13/20 08:48 Levetiracetam (Keppra) 250 mg Q12HR GT 05/06/20 21:00 06/20/20 20:59 05/14/20 08:47 Multivitamins (Multivitamins W/ Minerals 15ml Liquid) 5 ml DAILY GT 05/07/20 09:00 06/06/20 08:59 05/14/20 08:46 Potassium Chloride (K-Dur) 20 meq DAILY GT 05/13/20 09:00 08/11/20 08:59 05/14/20 08:45 Tamsulosin HCl (Flomax) 0.4 mg BEDTIME ORAL 05/06/20 21:00 06/05/20 20:59 05/13/20 20:31 Assessment/Plan Assessment/Plan ASSESSMENT: Pulmonary congestion, respiratory failure, hypoxemia dementia, G-tube, seizure disorder, congestive heart failure, COPD sepsis, and acute [place]. acute on chronic CO2 retention PLAN: maintain oxygen and BIPAP as needed and repeat ABG for change. Breathing treatments and aspiration precautions. Monitor blood gases for change. IV antibiotic therapy. Maintain home meds and monitor with seizure medications. feeds and monitor residuals; DNR noted DVT prophylaxis continue as is monitor lytes likely needs BIPAP QHS routine and on discharge impression, plan, and exam edited and reviewed in detail care discussed with Attila Yuan MD May 14, 2020 09:33
--- NOTE | 2020-05-14 11:09 | Infectious Diseases Prog Note ---
Assessment/Plan Assessment/Plan antibiotics : none A 1. Urinary tract infection with E. coli s/p rx 2. MRSA nasal colonization. 3. CHF. 4. COPD. 5. Seizures. 6. Dementia. 7. He is negative for COVID-19. P 1. continue off antibiotics Subjective ROS Limited/Unobtainable: Yes Allergies: Coded Allergies: PENICILLINS (Unverified Allergy, Unknown, 08/11/19) Objective Last 24 Hour Vital Signs Date Time Temp Pulse Resp B/P (MAP) Pulse Ox O2 Delivery O2 Flow Rate FiO2 05/14/20 11:00 59 17 100 30 05/14/20 09:33 60 20 100 30 05/14/20 09:33 60 20 100 Bi-Pap 30 05/14/20 08:47 78 132/58 05/14/20 08:47 78 132/58 05/14/20 08:00 Venturi Mask 8.0 05/14/20 08:00 75 05/14/20 08:00 8.0 35 05/14/20 08:00 97.0 78 26 132/58 (82) 99 05/14/20 07:25 99 Venturi Mask 8.0 35 05/14/20 04:00 97.3 77 28 134/86 (102) 99 05/14/20 04:00 84 05/14/20 04:00 8.0 35 05/14/20 04:00 Venturi Mask 8.0 05/14/20 00:00 97.2 77 22 134/86 (102) 97 05/14/20 00:00 Venturi Mask 8.0 05/14/20 00:00 83 05/13/20 20:21 79 130/60 05/13/20 20:00 97.0 78 24 134/54 (80) 100 05/13/20 20:00 8.0 35 05/13/20 20:00 Venturi Mask 8.0 05/13/20 19:28 92 05/13/20 19:10 98 Venturi Mask 8.0 35 05/13/20 16:00 97.5 65 22 142/85 (104) 97 05/13/20 16:00 8.0 35 05/13/20 16:00 Venturi Mask 8.0 05/13/20 15:49 80 05/13/20 12:00 97.5 83 20 118/77 (91) 99 05/13/20 12:00 82 05/13/20 12:00 Venturi Mask 8.0 05/13/20 11:24 98 Height (Feet): 5 Height (Inches): 6.00 Weight (Pounds): 137 HEENT: other - on bipap Respiratory/Chest: lungs clear Cardiovascular: normal rate, regular rhythm, no gallop/murmur Abdomen: soft, non tender Extremities: no edema Laboratory Tests Test 05/14/20 09:16 Arterial Blood pH 7.307 (7.350-7.450) Arterial Blood Partial Pressure CO2 72.2 mmHg (35.0-45.0) *H Arterial Blood Partial Pressure O2 84.3 mmHg (75.0-100.0) Arterial Blood HCO3 35.3 mmol/L (22.0-26.0) H Arterial Blood Oxygen Saturation 95.7 % (95-100) Arterial Blood Base Excess 6.5 (-2-2) H Apollo Test Positive Current Medications Medications (Trade) Dose Ordered Sig/Mayela Route PRN Reason Start Time Stop Time Status Last Admin Dose Admin Acetaminophen (Tylenol) 650 mg Q4H PRN GT back pain 05/06/20 15:15 06/05/20 15:14 Acetazolamide (Diamox) 250 mg TWICE A DAY GT 05/13/20 09:00 06/12/20 08:59 05/14/20 08:48 Amlodipine Besylate (Norvasc) 5 mg DAILY GT 05/07/20 09:00 06/06/20 08:59 05/14/20 08:47 Ascorbic Acid (Vitamin C) 500 mg DAILY GT 05/07/20 09:00 06/06/20 08:59 05/14/20 08:47 Aspirin (ASA) 81 mg DAILY GT 05/07/20 09:00 06/21/20 08:59 05/14/20 08:48 Carvedilol (Coreg) 3.125 mg EVERY 12 HOURS GT 05/07/20 09:00 06/06/20 08:59 05/14/20 08:47 Clonidine HCl (Catapres Tab) 0.1 mg Q4H PRN ORAL SBP >160 05/08/20 22:15 08/06/20 22:14 Docusate Sodium (Colace) 200 mg BID GT 05/06/20 18:00 06/05/20 17:59 05/14/20 08:46 Heparin Sodium (Porcine) (Heparin 5000 units/ml) 5,000 units EVERY 12 HOURS SUBQ 05/08/20 09:00 06/22/20 08:59 05/13/20 08:48 Levetiracetam (Keppra) 250 mg Q12HR GT 05/06/20 21:00 06/20/20 20:59 05/14/20 08:47 Multivitamins (Multivitamins W/ Minerals 15ml Liquid) 5 ml DAILY GT 05/07/20 09:00 06/06/20 08:59 05/14/20 08:46 Potassium Chloride (K-Dur) 20 meq DAILY GT 05/13/20 09:00 08/11/20 08:59 05/14/20 08:45 Tamsulosin HCl (Flomax) 0.4 mg BEDTIME ORAL 05/06/20 21:00 06/05/20 20:59 05/13/20 20:31 Josué Light MD May 14, 2020 11:09
--- NOTE | 2020-05-14 13:28 | Diagnostic Imaging Report ---
Indication: Shortness of breath Technique: One view of the chest Comparison: 05/12/2020 Findings: Retrocardiac consolidation, left pleural effusion persist, unchanged. Mild interstitial congestion persists, unchanged. The heart remains enlarged Impression: Unchanged, over one day, findings as above.
[2020-05-14] MEDS: Tamsulosin 0.4mg cap ORAL SCH (20:39)
--- NOTE | 2020-05-14 23:06 | Cardiology Progress Note ---
Subjective DATE OF SERVICE: May 14, 2020 Still on bipap. Seems more comfortable with breathing. O2 requirements decreasing; acid-base parameters remain tenuous. 7.31/72/84 (05/14/20) Troponin has normalized proBNP remains elevated over 7200 yesterday CXR (05/14) remains unchanged with retrocardiac infiltrate and small effusion with mild CHF Objective Last 24 Hour Vital Signs Date Time Temp Pulse Resp B/P (MAP) Pulse Ox O2 Delivery O2 Flow Rate FiO2 05/14/20 20:52 61 31 98 30 05/14/20 20:39 68 122/70 05/14/20 20:00 Bi-pap 30.0 05/14/20 20:00 97.4 62 18 120/68 (85) 99 05/14/20 20:00 30 05/14/20 20:00 79 05/14/20 19:05 64 30 98 30 05/14/20 19:04 98 Bi-Pap 30 05/14/20 17:10 57 17 98 30 05/14/20 16:00 8.0 35 05/14/20 16:00 90 05/14/20 16:00 97.2 95 17 119/66 (83) 99 05/14/20 16:00 Venturi Mask 8.0 05/14/20 15:20 62 13 100 30 05/14/20 13:05 59 17 99 30 05/14/20 12:00 8.0 35 05/14/20 12:00 Venturi Mask 8.0 05/14/20 12:00 85 05/14/20 12:00 97.2 86 20 104/60 (75) 99 05/14/20 11:00 59 17 100 30 05/14/20 09:33 60 20 100 30 05/14/20 09:33 60 20 100 Bi-Pap 30 05/14/20 08:47 78 132/58 05/14/20 08:47 78 132/58 05/14/20 08:00 Venturi Mask 8.0 05/14/20 08:00 75 05/14/20 08:00 8.0 35 05/14/20 08:00 97.0 78 26 132/58 (82) 99 05/14/20 07:25 99 Venturi Mask 8.0 35 05/14/20 04:00 97.3 77 28 134/86 (102) 99 05/14/20 04:00 84 05/14/20 04:00 8.0 35 05/14/20 04:00 Venturi Mask 8.0 05/14/20 00:00 97.2 77 22 134/86 (102) 97 05/14/20 00:00 Venturi Mask 8.0 05/14/20 00:00 83 ROS: unchanged from my evaluation of 05/06/20 RHYTHM: NSR LUNGS: diminished breath sounds CARDIAC: normal rate, regular rhythm, normal S1 and S2 ABDOMEN: G-Tube intact EXTREMITIES: non-pitting, No edema Laboratory Tests Test 05/14/20 09:16 Arterial Blood pH 7.307 (7.350-7.450) Arterial Blood Partial Pressure CO2 72.2 mmHg (35.0-45.0) *H Arterial Blood Partial Pressure O2 84.3 mmHg (75.0-100.0) Arterial Blood HCO3 35.3 mmol/L (22.0-26.0) H Arterial Blood Oxygen Saturation 95.7 % (95-100) Arterial Blood Base Excess 6.5 (-2-2) H Apollo Test Positive Assessment/Plan Assessment/Plan E.coli UTI Sepsis Metabolic and toxic encephalopathies Cerebrovascular disease with dementia Acute myocardial ischemia and possible NSTEMI Hypovolemia and dehydration corrected Hypertension/HHD Ac/chronic respiratory acidosis Ac diastolic CHF Metabolic acidosis Continue anti-anginal regimen; titrate meds for BP control. Off IVF Antimicrobials Diuresis with loop diuretic and acetazolamide. Monitor acid-base parameters. Real Magana MD May 14, 2020 23:06
[2020-05-15 04:00] VITALS: BP 112/64
[2020-05-15 04:40] LABS: BASOPHILS % (AUTO) 0.7 % (0.0-2.0); EOSINOPHILS % (AUTO) 2.8 % (0.0-3.0); HEMATOCRIT 41.3 % (42.0-52.0); HEMOGLOBIN 12.7 G/DL (14.2-18.0); LYMPHOCYTES % (AUTO) 17.2 % (20.0-45.0); MEAN CORPUSCULAR VOLUME 104 FL (80-99); MONOCYTES % (AUTO) 11.3 % (1.0-10.0); NEUTROPHILS % (AUTO) 68.1 % (45.0-75.0); PLATELET COUNT 155 K/UL (150-450); RED BLOOD COUNT 3.95 M/UL (4.70-6.10); RED CELL DISTRIBUTION WIDTH 13.8 % (11.6-14.8); WHITE BLOOD COUNT 8.9 K/UL (4.8-10.8)
[2020-05-15 05:46] LABS: ALANINE AMINOTRANSFERASE 27 U/L (12-78); ALBUMIN 2.7 G/DL (3.4-5.0); ALBUMIN/GLOBULIN RATIO 0.7 (1.0-2.7); ALKALINE PHOSPHATASE 101 U/L (46-116); ANION GAP 1 mmol/L (5-15); ASPARTATE AMINO TRANSFERASE 22 U/L (15-37); BILIRUBIN,TOTAL 0.2 MG/DL (0.2-1.0); BLOOD UREA NITROGEN 23 mg/dL (7-18); CARBON DIOXIDE 39 MMOL/L (21-32); CHLORIDE 98 MMOL/L (98-107); CREATININE 0.6 MG/DL (0.55-1.30); POTASSIUM 3.8 MMOL/L (3.5-5.1); SODIUM 138 MMOL/L (136-145)
[2020-05-15 08:00] VITALS: BP 127/57
--- NOTE | 2020-05-15 08:31 | Pulmonology Progress Note ---
Subjective ROS Limited/Unobtainable: Yes Constitutional: Denies: fever Allergies: Coded Allergies: PENICILLINS (Unverified Allergy, Unknown, 08/11/19) All Systems: reviewed and negative except above Subjective care noted on BIPAP and noted worsening CO2 retention no distress acid base worse as of yesterday Objective Last 24 Hour Vital Signs Date Time Temp Pulse Resp B/P (MAP) Pulse Ox O2 Delivery O2 Flow Rate FiO2 05/15/20 07:52 98 Bi-Pap 30 05/15/20 07:00 73 20 98 30 05/15/20 05:32 80 19 99 30 05/15/20 04:00 97.8 62 18 112/64 (80) 100 05/15/20 04:00 Bi-pap 30.0 05/15/20 04:00 30 05/15/20 03:29 85 05/15/20 03:04 60 30 99 30 05/15/20 00:52 57 13 100 30 05/15/20 00:00 Bi-pap 30.0 05/15/20 00:00 30 05/14/20 23:55 98.0 88 18 112/57 (75) 99 05/14/20 23:28 90 05/14/20 23:00 59 30 98 30 05/14/20 20:52 61 31 98 30 05/14/20 20:39 68 122/70 05/14/20 20:00 Bi-pap 30.0 05/14/20 20:00 97.4 62 18 120/68 (85) 99 05/14/20 20:00 30 05/14/20 20:00 79 05/14/20 19:05 64 30 98 30 05/14/20 19:04 98 Bi-Pap 30 05/14/20 17:10 57 17 98 30 05/14/20 16:00 8.0 35 05/14/20 16:00 90 05/14/20 16:00 97.2 95 17 119/66 (83) 99 05/14/20 16:00 Venturi Mask 8.0 05/14/20 15:20 62 13 100 30 05/14/20 13:05 59 17 99 30 05/14/20 12:00 8.0 35 05/14/20 12:00 Venturi Mask 8.0 05/14/20 12:00 85 05/14/20 12:00 97.2 86 20 104/60 (75) 99 05/14/20 11:00 59 17 100 30 05/14/20 09:33 60 20 100 30 05/14/20 09:33 60 20 100 Bi-Pap 30 05/14/20 08:47 78 132/58 05/14/20 08:47 78 132/58 Intake and Output 05/14/20 05/15/20 19:00 07:00 Intake Total 715 ml 510 ml Balance 715 ml 510 ml Intake Free Water 275 ml 150 ml Tube Feeding 440 ml 360 ml Objective WDWN NAD reduced breath sounds bilaterally without rhonchi [id number] without MRG NABS nontender no CC some edema nonfocal on BIPAP reduced LOC Laboratory Tests 05/14/20 09:16: Arterial Blood pH 7.307L, Arterial Blood Partial Pressure CO2 72.2*H, Arterial Blood Partial Pressure O2 84.3, Arterial Blood HCO3 35.3H, Arterial Blood Oxygen Saturation 95.7, Arterial Blood Base Excess 6.5H, Apollo Test Positive 05/15/20 03:10: White Blood Count 8.9, Red Blood Count 3.95L, Hemoglobin 12.7L, Hematocrit 41.3L , Mean Corpuscular Volume 104H, Mean Corpuscular Hemoglobin 32.1H, Mean Corpuscular Hemoglobin Concent 30.7L, Red Cell Distribution Width 13.8, Platelet Count 155, Mean Platelet Volume 10.4H, Neutrophils (%) (Auto) 68.1, Lymphocytes (%) (Auto) 17.2L, Monocytes (%) (Auto) 11.3H, Eosinophils (%) (Auto) 2.8, Basophils (%) (Auto) 0.7, Sodium Level 138, Potassium Level 3.8, Chloride Level 98, Carbon Dioxide Level 39H, Anion Gap 1L, Blood Urea Nitrogen 23H, Creatinine 0.6, Estimat Glomerular Filtration Rate > 60, Glucose Level 115H, Calcium Level 9.0, Magnesium Level 2.2, Total Bilirubin 0.2, Aspartate Amino Transf (AST/SGOT) 22, Alanine Aminotransferase (ALT/SGPT) 27, Alkaline Phosphatase 101, Pro-B-Type Natriuretic Peptide 1931H, Total Protein 6.4, Albumin 2.7L, Globulin 3.7, Albumin/Globulin Ratio 0.7L Current Medications Medications (Trade) Dose Ordered Sig/Mayela Route PRN Reason Start Time Stop Time Status Last Admin Dose Admin Acetaminophen (Tylenol) 650 mg Q4H PRN GT back pain 05/06/20 15:15 06/05/20 15:14 Acetazolamide (Diamox) 250 mg TWICE A DAY GT 05/13/20 09:00 06/12/20 08:59 05/14/20 17:37 Amlodipine Besylate (Norvasc) 5 mg DAILY GT 05/07/20 09:00 06/06/20 08:59 05/14/20 08:47 Ascorbic Acid (Vitamin C) 500 mg DAILY GT 05/07/20 09:00 06/06/20 08:59 05/14/20 08:47 Aspirin (ASA) 81 mg DAILY GT 05/07/20 09:00 06/21/20 08:59 05/14/20 08:48 Carvedilol (Coreg) 3.125 mg EVERY 12 HOURS GT 05/07/20 09:00 06/06/20 08:59 05/14/20 20:39 Clonidine HCl (Catapres Tab) 0.1 mg Q4H PRN ORAL SBP >160 05/08/20 22:15 08/06/20 22:14 Docusate Sodium (Colace) 200 mg BID GT 05/06/20 18:00 06/05/20 17:59 05/14/20 17:37 Heparin Sodium (Porcine) (Heparin 5000 units/ml) 5,000 units EVERY 12 HOURS SUBQ 05/08/20 09:00 06/22/20 08:59 05/13/20 08:48 Levetiracetam (Keppra) 250 mg Q12HR GT 05/06/20 21:00 06/20/20 20:59 05/14/20 20:39 Multivitamins (Multivitamins W/ Minerals 15ml Liquid) 5 ml DAILY GT 05/07/20 09:00 06/06/20 08:59 05/14/20 08:46 Potassium Chloride (K-Dur) 20 meq DAILY GT 05/13/20 09:00 08/11/20 08:59 05/14/20 08:45 Tamsulosin HCl (Flomax) 0.4 mg BEDTIME ORAL 05/06/20 21:00 06/05/20 20:59 05/14/20 20:39 Assessment/Plan Assessment/Plan ASSESSMENT: Pulmonary congestion, respiratory failure, hypoxemia dementia, G-tube, seizure disorder, congestive heart failure, COPD sepsis, and acute [place]. acute on chronic CO2 retention PLAN: maintain oxygen and BIPAP as needed and repeat ABG for change. Breathing treatments and aspiration precautions. Monitor blood gases for change. IV antibiotic therapy. Maintain home meds and monitor with seizure medications. feeds and monitor residuals; DNR noted DVT prophylaxis continue as is monitor lytes likely needs BIPAP QHS routine and on discharge impression, plan, and exam edited and reviewed in detail care discussed with Attila Yuan MD May 15, 2020 08:31
--- NOTE | 2020-05-15 08:41 | General Progress Note ---
Subjective ROS Limited/Unobtainable: Yes Constitutional: Reports: malaise, weakness HEENT: Reports: no symptoms Cardiovascular: Reports: no symptoms Respiratory: Reports: cough, shortness of breath, sputum Gastrointestinal/Abdominal: Reports: no symptoms Genitourinary: Reports: no symptoms Neurologic/Psychiatric: Reports: pre-existing deficit, seizure Endocrine: Reports: no symptoms Hematologic/Lymphatic: Reports: no symptoms Allergies: Coded Allergies: PENICILLINS (Unverified Allergy, Unknown, 08/11/19) All Systems: reviewed and negative except above Subjective placed back on bipap for increased pco2. withdrawn. lethargic. no fevers or chills. s/p lasix iv x 2. cxr with edema and retrocardiac infiltrate. Objective Last 24 Hour Vital Signs Date Time Temp Pulse Resp B/P (MAP) Pulse Ox O2 Delivery O2 Flow Rate FiO2 05/15/20 07:52 98 Bi-Pap 30 05/15/20 07:00 73 20 98 30 05/15/20 05:32 80 19 99 30 05/15/20 04:00 97.8 62 18 112/64 (80) 100 05/15/20 04:00 Bi-pap 30.0 05/15/20 04:00 30 05/15/20 03:29 85 05/15/20 03:04 60 30 99 30 05/15/20 00:52 57 13 100 30 05/15/20 00:00 Bi-pap 30.0 05/15/20 00:00 30 05/14/20 23:55 98.0 88 18 112/57 (75) 99 05/14/20 23:28 90 05/14/20 23:00 59 30 98 30 05/14/20 20:52 61 31 98 30 05/14/20 20:39 68 122/70 05/14/20 20:00 Bi-pap 30.0 05/14/20 20:00 97.4 62 18 120/68 (85) 99 05/14/20 20:00 30 05/14/20 20:00 79 05/14/20 19:05 64 30 98 30 05/14/20 19:04 98 Bi-Pap 30 05/14/20 17:10 57 17 98 30 05/14/20 16:00 8.0 35 05/14/20 16:00 90 05/14/20 16:00 97.2 95 17 119/66 (83) 99 05/14/20 16:00 Venturi Mask 8.0 05/14/20 15:20 62 13 100 30 05/14/20 13:05 59 17 99 30 05/14/20 12:00 8.0 35 05/14/20 12:00 Venturi Mask 8.0 05/14/20 12:00 85 05/14/20 12:00 97.2 86 20 104/60 (75) 99 05/14/20 11:00 59 17 100 30 05/14/20 09:33 60 20 100 30 05/14/20 09:33 60 20 100 Bi-Pap 30 05/14/20 08:47 78 132/58 05/14/20 08:47 78 132/58 Intake and Output 05/14/20 05/15/20 19:00 07:00 Intake Total 715 ml 510 ml Balance 715 ml 510 ml Intake Free Water 275 ml 150 ml Tube Feeding 440 ml 360 ml Laboratory Tests 05/14/20 09:16: Arterial Blood pH 7.307L, Arterial Blood Partial Pressure CO2 72.2*H, Arterial Blood Partial Pressure O2 84.3, Arterial Blood HCO3 35.3H, Arterial Blood Oxygen Saturation 95.7, Arterial Blood Base Excess 6.5H, Apollo Test Positive 05/15/20 03:10: White Blood Count 8.9, Red Blood Count 3.95L, Hemoglobin 12.7L, Hematocrit 41.3L , Mean Corpuscular Volume 104H, Mean Corpuscular Hemoglobin 32.1H, Mean Corpuscular Hemoglobin Concent 30.7L, Red Cell Distribution Width 13.8, Platelet Count 155, Mean Platelet Volume 10.4H, Neutrophils (%) (Auto) 68.1, Lymphocytes (%) (Auto) 17.2L, Monocytes (%) (Auto) 11.3H, Eosinophils (%) (Auto) 2.8, Basophils (%) (Auto) 0.7, Sodium Level 138, Potassium Level 3.8, Chloride Level 98, Carbon Dioxide Level 39H, Anion Gap 1L, Blood Urea Nitrogen 23H, Creatinine 0.6, Estimat Glomerular Filtration Rate > 60, Glucose Level 115H, Calcium Level 9.0, Magnesium Level 2.2, Total Bilirubin 0.2, Aspartate Amino Transf (AST/SGOT) 22, Alanine Aminotransferase (ALT/SGPT) 27, Alkaline Phosphatase 101, Pro-B-Type Natriuretic Peptide 1931H, Total Protein 6.4, Albumin 2.7L, Globulin 3.7, Albumin/Globulin Ratio 0.7L Height (Feet): 5 Height (Inches): 6.00 Weight (Pounds): 137 Objective General Appearance: WD/WN, alert, confused EENT: normal ENT inspection Neck: normal alignment Cardiovascular: normal rate Respiratory/Chest: chest wall non-tender, lungs clear, normal breath sounds Abdomen: normal bowel sounds, non tender, soft, no organomegaly Edema: no edema noted Arm (L), no edema noted Arm (R) Neurologic: alert, disoriented Assessment/Plan Problem List: (1) Seizure ICD Codes: R56.9 - Unspecified convulsions SNOMED: 41228028 (2) Dysphagia ICD Codes: R13.10 - Dysphagia, unspecified SNOMED: 15983904, 726892507 (3) UTI (urinary tract infection) ICD Codes: N39.0 - Urinary tract infection, site not specified SNOMED: 80530668 (4) Elevated troponin I level ICD Codes: R77.8 - Other specified abnormalities of plasma proteins SNOMED: 844941384 (5) AMS (altered mental status) ICD Codes: R41.82 - Altered mental status, unspecified SNOMED: 807029947 (6) NSTEMI (non-ST elevated myocardial infarction) ICD Codes: I21.4 - Non-ST elevation (NSTEMI) myocardial infarction SNOMED: 42866989 Status: stable Assessment/Plan: cont abg monitor abg- ordered for this am wean o2/bipap as able tube feeds monitor residual monitor for vomiting sz rx. sz precautions iv abx prn diuresis monitor labs anxiolytics as needed o2 resp rx dvt/stress ulcer prophylaxis. Jorge Kee MD May 15, 2020 08:41
[2020-05-15] MEDS: Ascorbic Acid 500mg tab GT SCH (08:59)
[2020-05-15] MEDS: Aspirin Baby 81mg GT SCH (08:59)
[2020-05-15] MEDS: levETIRAcetam 500mg/5ml Liquid GT SCH ×2 (09:00→20:50)
[2020-05-15] MEDS: Multivitamins W/Minerals 15 ML UDC GT SCH (09:00)
[2020-05-15] MEDS: Docusate 100mg/10ml Liq GT SCH ×2 (09:00→18:00)
[2020-05-15] MEDS: Heparin 5000 units/ml inj SUBQ SCH ×2 (09:00→20:52)
--- NOTE | 2020-05-15 11:33 | Infectious Diseases Prog Note ---
Assessment/Plan Assessment/Plan A:1. Urinary tract infection treated 2. MRSA nasal colonization. 3. CHF. 4. COPD. 5. Seizures. 6. Dementia. 7. He is negative for COVID-19. 8. Hypercapnic respiratory failure 9. Pleural effusion PLAN: 1. Obseve off of antibiotic Subjective ROS Limited/Unobtainable: Yes Constitutional: Denies: fever Allergies: Coded Allergies: PENICILLINS (Unverified Allergy, Unknown, 08/11/19) Objective Last 24 Hour Vital Signs Date Time Temp Pulse Resp B/P (MAP) Pulse Ox O2 Delivery O2 Flow Rate FiO2 05/15/20 09:14 57 15 97 30 05/15/20 08:59 73 127/57 05/15/20 08:59 73 127/57 05/15/20 07:52 98 Bi-Pap 30 05/15/20 07:00 73 20 98 30 05/15/20 05:32 80 19 99 30 05/15/20 04:00 97.8 62 18 112/64 (80) 100 05/15/20 04:00 Bi-pap 30.0 05/15/20 04:00 30 05/15/20 03:29 85 05/15/20 03:04 60 30 99 30 05/15/20 00:52 57 13 100 30 05/15/20 00:00 Bi-pap 30.0 05/15/20 00:00 30 05/14/20 23:55 98.0 88 18 112/57 (75) 99 05/14/20 23:28 90 05/14/20 23:00 59 30 98 30 05/14/20 20:52 61 31 98 30 05/14/20 20:39 68 122/70 05/14/20 20:00 Bi-pap 30.0 05/14/20 20:00 97.4 62 18 120/68 (85) 99 05/14/20 20:00 30 05/14/20 20:00 79 05/14/20 19:05 64 30 98 30 05/14/20 19:04 98 Bi-Pap 30 05/14/20 17:10 57 17 98 30 05/14/20 16:00 8.0 35 05/14/20 16:00 90 05/14/20 16:00 97.2 95 17 119/66 (83) 99 05/14/20 16:00 Venturi Mask 8.0 05/14/20 15:20 62 13 100 30 05/14/20 13:05 59 17 99 30 05/14/20 12:00 8.0 35 05/14/20 12:00 Venturi Mask 8.0 05/14/20 12:00 85 05/14/20 12:00 97.2 86 20 104/60 (75) 99 Height (Feet): 5 Height (Inches): 6.00 Weight (Pounds): 137 HEENT: mucous membranes moist Respiratory/Chest: decreased breath sounds, other - on BIPAP Cardiovascular: normal rate Abdomen: soft, non tender Extremities: no edema Neurologic/Psychiatric: other - sleeping Laboratory Tests Test 05/15/20 03:10 White Blood Count 8.9 K/UL (4.8-10.8) Red Blood Count 3.95 M/UL (4.70-6.10) L Hemoglobin 12.7 G/DL (14.2-18.0) L Hematocrit 41.3 % (42.0-52.0) L Mean Corpuscular Volume 104 FL (80-99) H Mean Corpuscular Hemoglobin 32.1 PG (27.0-31.0) H Mean Corpuscular Hemoglobin Concent 30.7 G/DL (32.0-36.0) L Red Cell Distribution Width 13.8 % (11.6-14.8) Platelet Count 155 K/UL (150-450) Mean Platelet Volume 10.4 FL (6.5-10.1) H Neutrophils (%) (Auto) 68.1 % (45.0-75.0) Lymphocytes (%) (Auto) 17.2 % (20.0-45.0) L Monocytes (%) (Auto) 11.3 % (1.0-10.0) H Eosinophils (%) (Auto) 2.8 % (0.0-3.0) Basophils (%) (Auto) 0.7 % (0.0-2.0) Sodium Level 138 MMOL/L (136-145) Potassium Level 3.8 MMOL/L (3.5-5.1) Chloride Level 98 MMOL/L (98-107) Carbon Dioxide Level 39 MMOL/L (21-32) H Anion Gap 1 mmol/L (5-15) L Blood Urea Nitrogen 23 mg/dL (7-18) H Creatinine 0.6 MG/DL (0.55-1.30) Estimat Glomerular Filtration Rate > 60 mL/min (>60) Glucose Level 115 MG/DL (74-106) H Calcium Level 9.0 MG/DL (8.5-10.1) Magnesium Level 2.2 MG/DL (1.8-2.4) Total Bilirubin 0.2 MG/DL (0.2-1.0) Aspartate Amino Transf (AST/SGOT) 22 U/L (15-37) Alanine Aminotransferase (ALT/SGPT) 27 U/L (12-78) Alkaline Phosphatase 101 U/L (46-116) Pro-B-Type Natriuretic Peptide 1931 pg/mL (0-125) H Total Protein 6.4 G/DL (6.4-8.2) Albumin 2.7 G/DL (3.4-5.0) L Globulin 3.7 g/dL Albumin/Globulin Ratio 0.7 (1.0-2.7) L Current Medications Medications (Trade) Dose Ordered Sig/Mayela Route PRN Reason Start Time Stop Time Status Last Admin Dose Admin Acetaminophen (Tylenol) 650 mg Q4H PRN GT back pain 05/06/20 15:15 06/05/20 15:14 Acetazolamide (Diamox) 250 mg TWICE A DAY GT 05/13/20 09:00 06/12/20 08:59 05/15/20 08:59 Amlodipine Besylate (Norvasc) 5 mg DAILY GT 05/07/20 09:00 06/06/20 08:59 05/15/20 08:59 Ascorbic Acid (Vitamin C) 500 mg DAILY GT 05/07/20 09:00 06/06/20 08:59 05/15/20 08:59 Aspirin (ASA) 81 mg DAILY GT 05/07/20 09:00 06/21/20 08:59 05/15/20 08:59 Carvedilol (Coreg) 3.125 mg EVERY 12 HOURS GT 05/07/20 09:00 06/06/20 08:59 05/15/20 08:59 Clonidine HCl (Catapres Tab) 0.1 mg Q4H PRN ORAL SBP >160 05/08/20 22:15 08/06/20 22:14 Docusate Sodium (Colace) 200 mg BID GT 05/06/20 18:00 06/05/20 17:59 05/15/20 09:00 Heparin Sodium (Porcine) (Heparin 5000 units/ml) 5,000 units EVERY 12 HOURS SUBQ 05/08/20 09:00 06/22/20 08:59 05/15/20 09:00 Levetiracetam (Keppra) 250 mg Q12HR GT 05/06/20 21:00 06/20/20 20:59 05/15/20 09:00 Multivitamins (Multivitamins W/ Minerals 15ml Liquid) 5 ml DAILY GT 05/07/20 09:00 06/06/20 08:59 05/15/20 09:00 Potassium Chloride (K-Dur) 20 meq DAILY GT 05/13/20 09:00 08/11/20 08:59 05/15/20 09:01 Tamsulosin HCl (Flomax) 0.4 mg BEDTIME ORAL 05/06/20 21:00 06/05/20 20:59 05/14/20 20:39 Luis Yanes MD May 15, 2020 11:33
[2020-05-15 12:00] VITALS: BP 105/61
--- NOTE | 2020-05-15 14:45 | Surgery Progress Note ---
Surgery Progress Note Subjective Symptoms: tolerating diet, passing flatus, BM Objective Last 24 Hour Vital Signs Date Time Temp Pulse Resp B/P (MAP) Pulse Ox O2 Delivery O2 Flow Rate FiO2 05/15/20 10:50 66 16 100 30 05/15/20 09:14 57 15 97 30 05/15/20 08:59 73 127/57 05/15/20 08:59 73 127/57 05/15/20 08:00 96.8 69 20 127/57 (80) 100 05/15/20 08:00 Bi-pap 30.0 05/15/20 08:00 30 05/15/20 07:52 98 Bi-Pap 30 05/15/20 07:47 81 05/15/20 07:00 73 20 98 30 05/15/20 05:32 80 19 99 30 05/15/20 04:00 97.8 62 18 112/64 (80) 100 05/15/20 04:00 Bi-pap 30.0 05/15/20 04:00 30 05/15/20 03:29 85 05/15/20 03:04 60 30 99 30 05/15/20 00:52 57 13 100 30 05/15/20 00:00 Bi-pap 30.0 05/15/20 00:00 30 05/14/20 23:55 98.0 88 18 112/57 (75) 99 05/14/20 23:28 90 05/14/20 23:00 59 30 98 30 05/14/20 20:52 61 31 98 30 05/14/20 20:39 68 122/70 05/14/20 20:00 Bi-pap 30.0 05/14/20 20:00 97.4 62 18 120/68 (85) 99 05/14/20 20:00 30 05/14/20 20:00 79 05/14/20 19:05 64 30 98 30 05/14/20 19:04 98 Bi-Pap 30 05/14/20 17:10 57 17 98 30 05/14/20 16:00 8.0 35 05/14/20 16:00 90 05/14/20 16:00 97.2 95 17 119/66 (83) 99 05/14/20 16:00 Venturi Mask 8.0 05/14/20 15:20 62 13 100 30 I&O Intake and Output 05/14/20 05/15/20 19:00 07:00 Intake Total 715 ml 510 ml Balance 715 ml 510 ml Intake Free Water 275 ml 150 ml Tube Feeding 440 ml 360 ml Dressing: saturated Cardiovascular: RSR Respiratory: decreased breath sounds Abdomen: non-tender, present bowel sounds Extremities: no edema, no tenderness, no cyanosis Laboratory Tests Test 05/15/20 03:10 05/15/20 10:43 White Blood Count 8.9 K/UL (4.8-10.8) Red Blood Count 3.95 M/UL (4.70-6.10) L Hemoglobin 12.7 G/DL (14.2-18.0) L Hematocrit 41.3 % (42.0-52.0) L Mean Corpuscular Volume 104 FL (80-99) H Mean Corpuscular Hemoglobin 32.1 PG (27.0-31.0) H Mean Corpuscular Hemoglobin Concent 30.7 G/DL (32.0-36.0) L Red Cell Distribution Width 13.8 % (11.6-14.8) Platelet Count 155 K/UL (150-450) Mean Platelet Volume 10.4 FL (6.5-10.1) H Neutrophils (%) (Auto) 68.1 % (45.0-75.0) Lymphocytes (%) (Auto) 17.2 % (20.0-45.0) L Monocytes (%) (Auto) 11.3 % (1.0-10.0) H Eosinophils (%) (Auto) 2.8 % (0.0-3.0) Basophils (%) (Auto) 0.7 % (0.0-2.0) Sodium Level 138 MMOL/L (136-145) Potassium Level 3.8 MMOL/L (3.5-5.1) Chloride Level 98 MMOL/L (98-107) Carbon Dioxide Level 39 MMOL/L (21-32) H Anion Gap 1 mmol/L (5-15) L Blood Urea Nitrogen 23 mg/dL (7-18) H Creatinine 0.6 MG/DL (0.55-1.30) Estimat Glomerular Filtration Rate > 60 mL/min (>60) Glucose Level 115 MG/DL (74-106) H Calcium Level 9.0 MG/DL (8.5-10.1) Magnesium Level 2.2 MG/DL (1.8-2.4) Total Bilirubin 0.2 MG/DL (0.2-1.0) Aspartate Amino Transf (AST/SGOT) 22 U/L (15-37) Alanine Aminotransferase (ALT/SGPT) 27 U/L (12-78) Alkaline Phosphatase 101 U/L (46-116) Pro-B-Type Natriuretic Peptide 1931 pg/mL (0-125) H Total Protein 6.4 G/DL (6.4-8.2) Albumin 2.7 G/DL (3.4-5.0) L Globulin 3.7 g/dL Albumin/Globulin Ratio 0.7 (1.0-2.7) L Arterial Blood pH 7.290 (7.350-7.450) Arterial Blood Partial Pressure CO2 77.6 mmHg (35.0-45.0) *H Arterial Blood Partial Pressure O2 86.4 mmHg (75.0-100.0) Arterial Blood HCO3 36.5 mmol/L (22.0-26.0) H Arterial Blood Oxygen Saturation 95.9 % (95-100) Arterial Blood Base Excess 7.2 (-2-2) H Apollo Test Positive Plan Problems: (1) Deep tissue injury Assessment & Plan: Patient identified to have bilateral heel concerns for potential developing DTI. Soft boggy no fluid collection no acute injury at this time. Patient identified to have sacral erythema and skin changes with concerns for developing deep tissue injury as well. No open areas. No fluid collections no fluctuance no drainage. On the scrotum patient is identified to have edema erythema and some abrasion along with incontinence associated dermatitis in the area. Patient identified to have abrasion to the nasal brim secondary to a facemask placement. Patient is chronically ill elderly and malnourished. Wound evaluated and care plan initiated. Treatment plan Apply skin protectant to the nasal bridge followed by foam dressing prior to facemask placement. Patient currently requires oxygen supplementation and therefore important to ensure receiving such along with protection of underlying epidermis. Apply OPTi foam to heels change every 3 days offload pressure with pillows Apply OPTi foam to sacral area monitor for incontinence change accordingly every 3 days and as needed saturation. Soft towel under scrotum. Continue with respiratory supportive care Turn every 2 hours Offload pressure with pillows Continue tube feeds nutritional optimization we will follow with recommendations thank you for let me participate patient's care (2) Dementia with behavioral problem (3) UTI (urinary tract infection) (4) Elevated troponin I level (5) AMS (altered mental status) (6) Dysphagia Assessment & Plan: DAILY ESTIMATED NEEDS: Needs based on Pulmonary, cardiac, 62kg 25-30 kcals/kg 4805-5591 total kcals 1-1.5 g protein/kg 62-93 g total protein 25-30 mL/kg 0637-9515 total fluid mLs NUTRITION DIAGNOSIS: Swallowing difficulty r/t dysphagia as evidenced by pt is PEG dep, currently on continuous BIPAP. CURRENT TF: Glucerna 1.5 @ 40ml/hr ENTERAL NUTRITION RECOMMENDATIONS: Glucerna 1.5 goal of 45ml/hr x 24 hrs to provide 1080ml, 1620 kcal, 89g pro, 820ml free water * Maintain carb controlled TF of Glucerna 1.5 while CO2 critically elevated * As medically appropriate, increase goal rate to 45ml/hr x 24 hrs to better meet nutritional needs. * HOB over 30 degrees/ water flush per MD ADDITIONAL RECOMMENDATIONS: 1) Monitor BIPAP usage, safety of GT feeds -> continuous BIPAP at this time 2) Lytes daily, replete as needed Current TF Glucerna 1.5 @goal of 40ml/hr provides 2419mg K/day 3) Calibrated bed scale wts (Bed scale shows uptrend: 65kg-> 71kg) 4) Rec HgA1C for eval of BG control 5) F/up w/ WC eval: Continue MVI and Vit C (7) Seizure (8) NSTEMI (non-ST elevated myocardial infarction) Benitez Mayorga May 15, 2020 14:45
[2020-05-15 16:00] VITALS: BP 120/71
[2020-05-15 20:00] VITALS: BP 123/75
[2020-05-15] MEDS: Tamsulosin 0.4mg cap ORAL SCH (20:51)
[2020-05-16] VITALS: BP 129/62
--- NOTE | 2020-05-16 00:38 | Cardiology Progress Note ---
Subjective DATE OF SERVICE: May 15, 2020 Still on bipap. Req'd more periods of bipap support O2 requirements decreasing; acid-base parameters remain tenuous. 7.29/78/86 (05/15/20) Troponin has normalized proBNP remains elevated over 7200 yesterday Objective Last 24 Hour Vital Signs Date Time Temp Pulse Resp B/P (MAP) Pulse Ox O2 Delivery O2 Flow Rate FiO2 05/15/20 21:40 65 29 100 30 05/15/20 20:51 80 123/75 05/15/20 20:00 97.7 75 20 123/75 (91) 100 05/15/20 20:00 30 05/15/20 19:42 88 05/15/20 19:23 63 31 99 30 05/15/20 19:18 99 Bi-Pap 30 05/15/20 17:25 62 30 99 30 05/15/20 16:00 96.8 62 20 120/71 (87) 100 05/15/20 16:00 89 05/15/20 16:00 30 05/15/20 14:45 60 14 100 30 05/15/20 12:00 84 05/15/20 12:00 97.0 62 19 105/61 (76) 100 05/15/20 12:00 30 05/15/20 10:50 66 16 100 30 05/15/20 09:14 57 15 97 30 05/15/20 08:59 73 127/57 05/15/20 08:59 73 127/57 05/15/20 08:00 96.8 69 20 127/57 (80) 100 05/15/20 08:00 Bi-pap 30.0 05/15/20 08:00 30 05/15/20 07:52 98 Bi-Pap 30 05/15/20 07:47 81 05/15/20 07:00 73 20 98 30 05/15/20 05:32 80 19 99 30 05/15/20 04:00 97.8 62 18 112/64 (80) 100 05/15/20 04:00 Bi-pap 30.0 05/15/20 04:00 30 05/15/20 03:29 85 05/15/20 03:04 60 30 99 30 05/15/20 00:52 57 13 100 30 ROS: unchanged from my evaluation of 05/06/20 RHYTHM: NSR LUNGS: diminished breath sounds CARDIAC: normal rate, regular rhythm, normal S1 and S2 ABDOMEN: G-Tube intact EXTREMITIES: non-pitting, No edema Laboratory Tests Test 05/15/20 03:10 05/15/20 10:43 White Blood Count 8.9 K/UL (4.8-10.8) Red Blood Count 3.95 M/UL (4.70-6.10) L Hemoglobin 12.7 G/DL (14.2-18.0) L Hematocrit 41.3 % (42.0-52.0) L Mean Corpuscular Volume 104 FL (80-99) H Mean Corpuscular Hemoglobin 32.1 PG (27.0-31.0) H Mean Corpuscular Hemoglobin Concent 30.7 G/DL (32.0-36.0) L Red Cell Distribution Width 13.8 % (11.6-14.8) Platelet Count 155 K/UL (150-450) Mean Platelet Volume 10.4 FL (6.5-10.1) H Neutrophils (%) (Auto) 68.1 % (45.0-75.0) Lymphocytes (%) (Auto) 17.2 % (20.0-45.0) L Monocytes (%) (Auto) 11.3 % (1.0-10.0) H Eosinophils (%) (Auto) 2.8 % (0.0-3.0) Basophils (%) (Auto) 0.7 % (0.0-2.0) Sodium Level 138 MMOL/L (136-145) Potassium Level 3.8 MMOL/L (3.5-5.1) Chloride Level 98 MMOL/L (98-107) Carbon Dioxide Level 39 MMOL/L (21-32) H Anion Gap 1 mmol/L (5-15) L Blood Urea Nitrogen 23 mg/dL (7-18) H Creatinine 0.6 MG/DL (0.55-1.30) Estimat Glomerular Filtration Rate > 60 mL/min (>60) Glucose Level 115 MG/DL (74-106) H Calcium Level 9.0 MG/DL (8.5-10.1) Magnesium Level 2.2 MG/DL (1.8-2.4) Total Bilirubin 0.2 MG/DL (0.2-1.0) Aspartate Amino Transf (AST/SGOT) 22 U/L (15-37) Alanine Aminotransferase (ALT/SGPT) 27 U/L (12-78) Alkaline Phosphatase 101 U/L (46-116) Pro-B-Type Natriuretic Peptide 1931 pg/mL (0-125) H Total Protein 6.4 G/DL (6.4-8.2) Albumin 2.7 G/DL (3.4-5.0) L Globulin 3.7 g/dL Albumin/Globulin Ratio 0.7 (1.0-2.7) L Arterial Blood pH 7.290 (7.350-7.450) Arterial Blood Partial Pressure CO2 77.6 mmHg (35.0-45.0) *H Arterial Blood Partial Pressure O2 86.4 mmHg (75.0-100.0) Arterial Blood HCO3 36.5 mmol/L (22.0-26.0) H Arterial Blood Oxygen Saturation 95.9 % (95-100) Arterial Blood Base Excess 7.2 (-2-2) H Apollo Test Positive Assessment/Plan Assessment/Plan E.coli UTI Sepsis Metabolic and toxic encephalopathies Cerebrovascular disease with dementia Acute myocardial ischemia and possible NSTEMI Hypovolemia and dehydration corrected Hypertension/HHD Ac/chronic respiratory acidosis Respiratory failure Ac diastolic CHF Metabolic acidosis Continue anti-anginal regimen; titrate meds for BP control. Off IVF Antimicrobials Diuresis with loop diuretic and acetazolamide. Monitor acid-base parameters. Bipap support Real Magana MD May 16, 2020 00:37
[2020-05-16 04:00] VITALS: BP 136/74
[2020-05-16 05:03] LABS: BASOPHILS % (AUTO) 0.6 % (0.0-2.0); HEMOGLOBIN 12.6 G/DL (14.2-18.0); LYMPHOCYTES % (AUTO) 18.1 % (20.0-45.0); MEAN CORPUSCULAR VOLUME 104 FL (80-99); MONOCYTES % (AUTO) 10.3 % (1.0-10.0); PLATELET COUNT 166 K/UL (150-450); RED BLOOD COUNT 3.95 M/UL (4.70-6.10); WHITE BLOOD COUNT 8.3 K/UL (4.8-10.8)
[2020-05-16 05:36] LABS: ALANINE AMINOTRANSFERASE 32 U/L (12-78); ALBUMIN 2.7 G/DL (3.4-5.0); ALBUMIN/GLOBULIN RATIO 0.6 (1.0-2.7); ALKALINE PHOSPHATASE 94 U/L (46-116); ANION GAP 2 mmol/L (5-15); ASPARTATE AMINO TRANSFERASE 24 U/L (15-37); BILIRUBIN,TOTAL 0.2 MG/DL (0.2-1.0); BLOOD UREA NITROGEN 25 mg/dL (7-18); CALCIUM 8.6 MG/DL (8.5-10.1); CARBON DIOXIDE 34 MMOL/L (21-32); CHLORIDE 104 MMOL/L (98-107); CREATININE 0.5 MG/DL (0.55-1.30); POTASSIUM 4.4 MMOL/L (3.5-5.1); SODIUM 140 MMOL/L (136-145)
[2020-05-16] MEDS: Acetaminophen 650mg/20.3ml GT PRN (07:27)
--- NOTE | 2020-05-16 07:59 | Pulmonology Progress Note ---
Subjective ROS Limited/Unobtainable: Yes Constitutional: Denies: fever Allergies: Coded Allergies: PENICILLINS (Unverified Allergy, Unknown, 08/11/19) All Systems: reviewed and negative except above Subjective care noted on BIPAP and noted worsening CO2 retention yesterday no distress acid base worse as of yesterday lethargic Objective Last 24 Hour Vital Signs Date Time Temp Pulse Resp B/P (MAP) Pulse Ox O2 Delivery O2 Flow Rate FiO2 05/16/20 05:09 72 28 99 30 05/16/20 04:36 Bi-pap 05/16/20 04:00 30 05/16/20 04:00 97.5 71 22 136/74 (94) 100 05/16/20 03:38 69 05/16/20 03:21 70 30 100 30 05/16/20 01:41 67 27 100 30 05/16/20 00:00 82 05/16/20 00:00 97.7 64 22 129/62 (84) 100 05/16/20 00:00 30 05/15/20 21:40 65 29 100 30 05/15/20 20:51 80 123/75 05/15/20 20:00 97.7 75 20 123/75 (91) 100 05/15/20 20:00 30 05/15/20 19:42 88 05/15/20 19:23 63 31 99 30 05/15/20 19:18 99 Bi-Pap 30 05/15/20 17:25 62 30 99 30 05/15/20 16:00 96.8 62 20 120/71 (87) 100 05/15/20 16:00 89 05/15/20 16:00 30 05/15/20 14:45 60 14 100 30 05/15/20 12:00 84 05/15/20 12:00 97.0 62 19 105/61 (76) 100 05/15/20 12:00 30 05/15/20 10:50 66 16 100 30 05/15/20 09:14 57 15 97 30 05/15/20 08:59 73 127/57 05/15/20 08:59 73 127/57 05/15/20 08:00 96.8 69 20 127/57 (80) 100 05/15/20 08:00 Bi-pap 30.0 05/15/20 08:00 30 Intake and Output 05/15/20 05/16/20 19:00 07:00 Intake Total 655 ml 705 ml Output Total 500 ml Balance 655 ml 205 ml Intake Free Water 175 ml 225 ml Tube Feeding 480 ml 480 ml Output Urine Total 500 ml # Voids 3 # Bowel Movements 2 Objective WDWN NAD reduced breath sounds bilaterally without rhonchi [id number] without MRG NABS nontender no CC mild edema nonfocal on BIPAP reduced LOC Laboratory Tests 05/15/20 10:43: Arterial Blood pH 7.290L, Arterial Blood Partial Pressure CO2 77.6*H, Arterial Blood Partial Pressure O2 86.4, Arterial Blood HCO3 36.5H, Arterial Blood Oxygen Saturation 95.9, Arterial Blood Base Excess 7.2H, Apollo Test Positive 05/16/20 03:20: White Blood Count 8.3, Red Blood Count 3.95L, Hemoglobin 12.6L, Hematocrit 41.0L , Mean Corpuscular Volume 104H, Mean Corpuscular Hemoglobin 32.0H, Mean Corpuscular Hemoglobin Concent 30.9L, Red Cell Distribution Width 14.0, Platelet Count 166, Mean Platelet Volume 10.9H, Neutrophils (%) (Auto) 68.0, Lymphocytes (%) (Auto) 18.1L, Monocytes (%) (Auto) 10.3H, Eosinophils (%) (Auto) 3.0, Basophils (%) (Auto) 0.6, Sodium Level 140, Potassium Level 4.4, Chloride Level 104, Carbon Dioxide Level 34H, Anion Gap 2L, Blood Urea Nitrogen 25H, Creatinine 0.5L, Estimat Glomerular Filtration Rate > 60, Glucose Level 119H, Calcium Level 8.6, Total Bilirubin 0.2, Aspartate Amino Transf (AST/SGOT) 24, Alanine Aminotransferase (ALT/SGPT) 32, Alkaline Phosphatase 94, Total Protein 7.0, Albumin 2.7L, Globulin 4.3, Albumin/Globulin Ratio 0.6L Current Medications Medications (Trade) Dose Ordered Sig/Mayela Route PRN Reason Start Time Stop Time Status Last Admin Dose Admin Acetaminophen (Tylenol) 650 mg Q4H PRN GT back pain 05/06/20 15:15 06/05/20 15:14 05/16/20 07:27 Acetazolamide (Diamox) 250 mg TWICE A DAY GT 05/13/20 09:00 06/12/20 08:59 11/5/20 18:00 Amlodipine Besylate (Norvasc) 5 mg DAILY GT 05/07/20 09:00 06/06/20 08:59 05/15/20 08:59 Ascorbic Acid (Vitamin C) 500 mg DAILY GT 05/07/20 09:00 06/06/20 08:59 05/15/20 08:59 Aspirin (ASA) 81 mg DAILY GT 05/07/20 09:00 06/21/20 08:59 05/15/20 08:59 Carvedilol (Coreg) 3.125 mg EVERY 12 HOURS GT 05/07/20 09:00 06/06/20 08:59 05/15/20 20:51 Clonidine HCl (Catapres Tab) 0.1 mg Q4H PRN ORAL SBP >160 05/08/20 22:15 08/06/20 22:14 Docusate Sodium (Colace) 200 mg BID GT 05/06/20 18:00 06/05/20 17:59 05/15/20 18:00 Heparin Sodium (Porcine) (Heparin 5000 units/ml) 5,000 units EVERY 12 HOURS SUBQ 05/08/20 09:00 06/22/20 08:59 05/15/20 20:52 Levetiracetam (Keppra) 250 mg Q12HR GT 05/06/20 21:00 06/20/20 20:59 05/15/20 20:50 Multivitamins (Multivitamins W/ Minerals 15ml Liquid) 5 ml DAILY GT 05/07/20 09:00 06/06/20 08:59 05/15/20 09:00 Potassium Chloride (K-Dur) 20 meq DAILY GT 05/13/20 09:00 08/11/20 08:59 05/15/20 09:01 Tamsulosin HCl (Flomax) 0.4 mg BEDTIME ORAL 05/06/20 21:00 06/05/20 20:59 05/15/20 20:51 Assessment/Plan Assessment/Plan ASSESSMENT: Pulmonary congestion, respiratory failure, hypoxemia dementia, G-tube, seizure disorder, congestive heart failure, COPD sepsis, and acute CT. acute on chronic CO2 retention PLAN: maintain oxygen and BIPAP repeat ABG for change. Breathing treatments and aspiration precautions. Monitor blood gases for change. IV antibiotic therapy. diurese further with imaging noted. Maintain home meds and monitor with seizure medications. feeds and monitor residuals; DNR noted DVT prophylaxis continue as is monitor lytes remains guarded impression, plan, and exam edited and reviewed in detail care discussed with Attila Yuan MD May 16, 2020 07:59
[2020-05-16 08:00] VITALS: BP 132/77
--- NOTE | 2020-05-16 09:21 | General Progress Note ---
Subjective ROS Limited/Unobtainable: Yes Constitutional: Reports: fever, malaise HEENT: Reports: no symptoms Cardiovascular: Reports: no symptoms Respiratory: Reports: cough, shortness of breath, sputum Gastrointestinal/Abdominal: Reports: difficulty swallowing Genitourinary: Reports: no symptoms Neurologic/Psychiatric: Reports: pre-existing deficit, seizure Endocrine: Reports: no symptoms Hematologic/Lymphatic: Reports: anemia Allergies: Coded Allergies: PENICILLINS (Unverified Allergy, Unknown, 08/11/19) All Systems: reviewed and negative except above Subjective on bipap. shallow respirations. alert. no fevers. tolerating gt feeds. no szs. Objective Last 24 Hour Vital Signs Date Time Temp Pulse Resp B/P (MAP) Pulse Ox O2 Delivery O2 Flow Rate FiO2 05/16/20 07:10 99 Bi-Pap 30 05/16/20 07:10 74 27 99 30 05/16/20 05:09 72 28 99 30 05/16/20 04:36 Bi-pap 05/16/20 04:00 30 05/16/20 04:00 97.5 71 22 136/74 (94) 100 05/16/20 03:38 69 05/16/20 03:21 70 30 100 30 05/16/20 01:41 67 27 100 30 05/16/20 00:00 82 05/16/20 00:00 97.7 64 22 129/62 (84) 100 05/16/20 00:00 30 05/15/20 21:40 65 29 100 30 05/15/20 20:51 80 123/75 05/15/20 20:00 97.7 75 20 123/75 (91) 100 05/15/20 20:00 30 05/15/20 19:42 88 05/15/20 19:23 63 31 99 30 05/15/20 19:18 99 Bi-Pap 30 05/15/20 17:25 62 30 99 30 05/15/20 16:00 96.8 62 20 120/71 (87) 100 05/15/20 16:00 89 05/15/20 16:00 30 05/15/20 14:45 60 14 100 30 05/15/20 12:00 84 05/15/20 12:00 97.0 62 19 105/61 (76) 100 05/15/20 12:00 30 05/15/20 10:50 66 16 100 30 Intake and Output 05/15/20 05/16/20 19:00 07:00 Intake Total 655 ml 705 ml Output Total 500 ml Balance 655 ml 205 ml Intake Free Water 175 ml 225 ml Tube Feeding 480 ml 480 ml Output Urine Total 500 ml # Voids 3 # Bowel Movements 2 Laboratory Tests 05/15/20 10:43: Arterial Blood pH 7.290L, Arterial Blood Partial Pressure CO2 77.6*H, Arterial Blood Partial Pressure O2 86.4, Arterial Blood HCO3 36.5H, Arterial Blood Oxygen Saturation 95.9, Arterial Blood Base Excess 7.2H, Apollo Test Positive 05/16/20 03:20: White Blood Count 8.3, Red Blood Count 3.95L, Hemoglobin 12.6L, Hematocrit 41.0L , Mean Corpuscular Volume 104H, Mean Corpuscular Hemoglobin 32.0H, Mean Corpuscular Hemoglobin Concent 30.9L, Red Cell Distribution Width 14.0, Platelet Count 166, Mean Platelet Volume 10.9H, Neutrophils (%) (Auto) 68.0, Lymphocytes (%) (Auto) 18.1L, Monocytes (%) (Auto) 10.3H, Eosinophils (%) (Auto) 3.0, Basophils (%) (Auto) 0.6, Sodium Level 140, Potassium Level 4.4, Chloride Level 104, Carbon Dioxide Level 34H, Anion Gap 2L, Blood Urea Nitrogen 25H, Creatinine 0.5L, Estimat Glomerular Filtration Rate > 60, Glucose Level 119H, Calcium Level 8.6, Total Bilirubin 0.2, Aspartate Amino Transf (AST/SGOT) 24, Alanine Aminotransferase (ALT/SGPT) 32, Alkaline Phosphatase 94, Total Protein 7.0, Albumin 2.7L, Globulin 4.3, Albumin/Globulin Ratio 0.6L Height (Feet): 5 Height (Inches): 6.00 Weight (Pounds): 137 Objective General Appearance: WD/WN, alert, confused EENT: normal ENT inspection Neck: normal alignment Cardiovascular: normal rate Respiratory/Chest: chest wall non-tender, lungs clear, normal breath sounds Abdomen: normal bowel sounds, non tender, soft, no organomegaly Edema: no edema noted Arm (L), no edema noted Arm (R) Neurologic: alert, disoriented Assessment/Plan Problem List: (1) Seizure ICD Codes: R56.9 - Unspecified convulsions SNOMED: 31052737 (2) Dysphagia ICD Codes: R13.10 - Dysphagia, unspecified SNOMED: 11504482, 084295361 (3) UTI (urinary tract infection) ICD Codes: N39.0 - Urinary tract infection, site not specified SNOMED: 22678186 (4) Elevated troponin I level ICD Codes: R77.8 - Other specified abnormalities of plasma proteins SNOMED: 491645736 (5) AMS (altered mental status) ICD Codes: R41.82 - Altered mental status, unspecified SNOMED: 346791047 (6) NSTEMI (non-ST elevated myocardial infarction) ICD Codes: I21.4 - Non-ST elevation (NSTEMI) myocardial infarction SNOMED: 95626862 Status: stable Assessment/Plan: bipap monitor abg- ordered for this am wean o2/bipap as able tube feeds monitor residual monitor for vomiting sz rx. sz precautions iv abx prn diuresis monitor labs anxiolytics as needed o2 resp rx dvt/stress ulcer prophylaxis. Jorge Kee MD May 16, 2020 09:21
[2020-05-16] MEDS: Docusate 100mg/10ml Liq GT SCH ×2 (09:24→18:25)
[2020-05-16] MEDS: Ascorbic Acid 500mg tab GT SCH (09:24)
[2020-05-16] MEDS: levETIRAcetam 500mg/5ml Liquid GT SCH ×2 (09:26→20:27)
[2020-05-16] MEDS: Aspirin Baby 81mg GT SCH (09:26)
[2020-05-16] MEDS: Multivitamins W/Minerals 15 ML UDC GT SCH (09:27)
[2020-05-16] MEDS: Heparin 5000 units/ml inj SUBQ SCH ×2 (09:28→20:29)
[2020-05-16] MEDS ORDERED: NS 275ml ONE (09:48)
[2020-05-16] MEDS ORDERED: Tubing IV Secondary IV ONE (09:48)
--- NOTE | 2020-05-16 10:15 | Diagnostic Imaging Report ---
Indication: Shortness of breath Technique: One view of the chest Comparison: 05/14/2020 Findings: Left basilar infiltrate, pleural fluid, bilateral interstitial congestion persist, unchanged. The heart is borderline enlarged Impression: Unchanged, over 2 days, findings as above.
--- NOTE | 2020-05-16 10:55 | Infectious Diseases Prog Note ---
Assessment/Plan Assessment/Plan antibiotics : none A 1. Urinary tract infection with E. coli s/p rx 2. MRSA nasal colonization. 3. CHF. 4. COPD. 5. Seizures. 6. Dementia. 7. He is negative for COVID-19. P 1. continue off antibiotics Subjective ROS Limited/Unobtainable: Yes Allergies: Coded Allergies: PENICILLINS (Unverified Allergy, Unknown, 08/11/19) Objective Last 24 Hour Vital Signs Date Time Temp Pulse Resp B/P (MAP) Pulse Ox O2 Delivery O2 Flow Rate FiO2 05/16/20 09:26 72 134/77 05/16/20 09:24 72 134/77 05/16/20 09:15 72 32 100 30 05/16/20 08:00 97.6 72 24 132/77 (95) 100 05/16/20 08:00 70 05/16/20 08:00 30 05/16/20 08:00 Bi-pap 05/16/20 07:10 99 Bi-Pap 30 05/16/20 07:10 74 27 99 30 05/16/20 05:09 72 28 99 30 05/16/20 04:36 Bi-pap 05/16/20 04:00 30 05/16/20 04:00 97.5 71 22 136/74 (94) 100 05/16/20 03:38 69 05/16/20 03:21 70 30 100 30 05/16/20 01:41 67 27 100 30 05/16/20 00:00 82 05/16/20 00:00 97.7 64 22 129/62 (84) 100 05/16/20 00:00 30 05/15/20 21:40 65 29 100 30 05/15/20 20:51 80 123/75 05/15/20 20:00 97.7 75 20 123/75 (91) 100 05/15/20 20:00 30 05/15/20 19:42 88 05/15/20 19:23 63 31 99 30 05/15/20 19:18 99 Bi-Pap 30 05/15/20 17:25 62 30 99 30 05/15/20 16:00 96.8 62 20 120/71 (87) 100 05/15/20 16:00 89 05/15/20 16:00 30 05/15/20 14:45 60 14 100 30 05/15/20 12:00 84 05/15/20 12:00 97.0 62 19 105/61 (76) 100 05/15/20 12:00 30 Height (Feet): 5 Height (Inches): 6.00 Weight (Pounds): 137 HEENT: other - bipap Respiratory/Chest: lungs clear Cardiovascular: normal rate, regular rhythm, no gallop/murmur Abdomen: soft, non tender, other - GT Extremities: no edema Laboratory Tests Test 05/16/20 03:20 05/16/20 09:48 White Blood Count 8.3 K/UL (4.8-10.8) Red Blood Count 3.95 M/UL (4.70-6.10) L Hemoglobin 12.6 G/DL (14.2-18.0) L Hematocrit 41.0 % (42.0-52.0) L Mean Corpuscular Volume 104 FL (80-99) H Mean Corpuscular Hemoglobin 32.0 PG (27.0-31.0) H Mean Corpuscular Hemoglobin Concent 30.9 G/DL (32.0-36.0) L Red Cell Distribution Width 14.0 % (11.6-14.8) Platelet Count 166 K/UL (150-450) Mean Platelet Volume 10.9 FL (6.5-10.1) H Neutrophils (%) (Auto) 68.0 % (45.0-75.0) Lymphocytes (%) (Auto) 18.1 % (20.0-45.0) L Monocytes (%) (Auto) 10.3 % (1.0-10.0) H Eosinophils (%) (Auto) 3.0 % (0.0-3.0) Basophils (%) (Auto) 0.6 % (0.0-2.0) Sodium Level 140 MMOL/L (136-145) Potassium Level 4.4 MMOL/L (3.5-5.1) Chloride Level 104 MMOL/L (98-107) Carbon Dioxide Level 34 MMOL/L (21-32) H Anion Gap 2 mmol/L (5-15) L Blood Urea Nitrogen 25 mg/dL (7-18) H Creatinine 0.5 MG/DL (0.55-1.30) L Estimat Glomerular Filtration Rate > 60 mL/min (>60) Glucose Level 119 MG/DL (74-106) H Calcium Level 8.6 MG/DL (8.5-10.1) Total Bilirubin 0.2 MG/DL (0.2-1.0) Aspartate Amino Transf (AST/SGOT) 24 U/L (15-37) Alanine Aminotransferase (ALT/SGPT) 32 U/L (12-78) Alkaline Phosphatase 94 U/L (46-116) Total Protein 7.0 G/DL (6.4-8.2) Albumin 2.7 G/DL (3.4-5.0) L Globulin 4.3 g/dL Albumin/Globulin Ratio 0.6 (1.0-2.7) L Arterial Blood pH 7.370 (7.350-7.450) Arterial Blood Partial Pressure CO2 63.6 mmHg (35.0-45.0) *H Arterial Blood Partial Pressure O2 78.8 mmHg (75.0-100.0) Arterial Blood HCO3 35.9 mmol/L (22.0-26.0) H Arterial Blood Oxygen Saturation 96.0 % (95-100) Arterial Blood Base Excess 8.4 (-2-2) H Apollo Test Positive Current Medications Medications (Trade) Dose Ordered Sig/Mayela Route PRN Reason Start Time Stop Time Status Last Admin Dose Admin Acetaminophen (Tylenol) 650 mg Q4H PRN GT back pain 05/06/20 15:15 06/05/20 15:14 05/16/20 07:27 Acetazolamide (Diamox) 250 mg TWICE A DAY GT 05/13/20 09:00 06/12/20 08:59 05/16/20 09:24 Amlodipine Besylate (Norvasc) 5 mg DAILY GT 05/07/20 09:00 06/06/20 08:59 05/16/20 09:24 Ascorbic Acid (Vitamin C) 500 mg DAILY GT 05/07/20 09:00 06/06/20 08:59 05/16/20 09:24 Aspirin (ASA) 81 mg DAILY GT 05/07/20 09:00 12 08:59 05/16/20 09:26 Carvedilol (Coreg) 3.125 mg EVERY 12 HOURS GT 05/07/20 09:00 06/06/20 08:59 05/16/20 09:26 Clonidine HCl (Catapres Tab) 0.1 mg Q4H PRN ORAL SBP >160 05/08/20 22:15 08/06/20 22:14 Docusate Sodium (Colace) 200 mg BID GT 05/06/20 18:00 06/05/20 17:59 05/16/20 09:24 Heparin Sodium (Porcine) (Heparin 5000 units/ml) 5,000 units EVERY 12 HOURS SUBQ 05/08/20 09:00 06/22/20 08:59 05/16/20 09:28 Levetiracetam (Keppra) 250 mg Q12HR GT 05/06/20 21:00 06/20/20 20:59 05/16/20 09:26 Multivitamins (Multivitamins W/ Minerals 15ml Liquid) 5 ml DAILY GT 05/07/20 09:00 06/06/20 08:59 05/16/20 09:27 Potassium Chloride (K-Dur) 20 meq DAILY GT 05/13/20 09:00 08/11/20 08:59 05/16/20 09:25 Tamsulosin HCl (Flomax) 0.4 mg BEDTIME ORAL 05/06/20 21:00 06/05/20 20:59 05/15/20 20:51 Josué Light MD May 16, 2020 10:55
[2020-05-16 12:00] VITALS: BP 108/64
--- NOTE | 2020-05-16 12:10 | Cardiology Progress Note ---
Subjective DATE OF SERVICE: May 16, 2020 Still on bipap. O2 requirements decreasing; acid-base parameters slightlly better. 7.37/64/79 (05/16/20) Troponin has normalized proBNP has decreased to 1985 today CXR (05/16) continues to show pulmonary venous congestion and pleural fluid Objective Last 24 Hour Vital Signs Date Time Temp Pulse Resp B/P (MAP) Pulse Ox O2 Delivery O2 Flow Rate FiO2 05/16/20 09:26 72 134/77 05/16/20 09:24 72 134/77 05/16/20 09:15 72 32 100 30 05/16/20 08:00 97.6 72 24 132/77 (95) 100 05/16/20 08:00 70 05/16/20 08:00 30 05/16/20 08:00 Bi-pap 05/16/20 07:10 99 Bi-Pap 30 05/16/20 07:10 74 27 99 30 05/16/20 05:09 72 28 99 30 05/16/20 04:36 Bi-pap 05/16/20 04:00 30 05/16/20 04:00 97.5 71 22 136/74 (94) 100 05/16/20 03:38 69 05/16/20 03:21 70 30 100 30 05/16/20 01:41 67 27 100 30 05/16/20 00:00 82 05/16/20 00:00 97.7 64 22 129/62 (84) 100 05/16/20 00:00 30 05/15/20 21:40 65 29 100 30 05/15/20 20:51 80 123/75 05/15/20 20:00 97.7 75 20 123/75 (91) 100 05/15/20 20:00 30 05/15/20 19:42 88 05/15/20 19:23 63 31 99 30 05/15/20 19:18 99 Bi-Pap 30 05/15/20 17:25 62 30 99 30 05/15/20 16:00 96.8 62 20 120/71 (87) 100 05/15/20 16:00 89 05/15/20 16:00 30 05/15/20 14:45 60 14 100 30 ROS: unchanged from my evaluation of 05/06/20 RHYTHM: NSR LUNGS: diminished breath sounds CARDIAC: normal rate, regular rhythm, normal S1 and S2 ABDOMEN: G-Tube intact EXTREMITIES: non-pitting, No edema Laboratory Tests Test 05/16/20 03:20 05/16/20 09:48 White Blood Count 8.3 K/UL (4.8-10.8) Red Blood Count 3.95 M/UL (4.70-6.10) L Hemoglobin 12.6 G/DL (14.2-18.0) L Hematocrit 41.0 % (42.0-52.0) L Mean Corpuscular Volume 104 FL (80-99) H Mean Corpuscular Hemoglobin 32.0 PG (27.0-31.0) H Mean Corpuscular Hemoglobin Concent 30.9 G/DL (32.0-36.0) L Red Cell Distribution Width 14.0 % (11.6-14.8) Platelet Count 166 K/UL (150-450) Mean Platelet Volume 10.9 FL (6.5-10.1) H Neutrophils (%) (Auto) 68.0 % (45.0-75.0) Lymphocytes (%) (Auto) 18.1 % (20.0-45.0) L Monocytes (%) (Auto) 10.3 % (1.0-10.0) H Eosinophils (%) (Auto) 3.0 % (0.0-3.0) Basophils (%) (Auto) 0.6 % (0.0-2.0) Sodium Level 140 MMOL/L (136-145) Potassium Level 4.4 MMOL/L (3.5-5.1) Chloride Level 104 MMOL/L (98-107) Carbon Dioxide Level 34 MMOL/L (21-32) H Anion Gap 2 mmol/L (5-15) L Blood Urea Nitrogen 25 mg/dL (7-18) H Creatinine 0.5 MG/DL (0.55-1.30) L Estimat Glomerular Filtration Rate > 60 mL/min (>60) Glucose Level 119 MG/DL (74-106) H Calcium Level 8.6 MG/DL (8.5-10.1) Total Bilirubin 0.2 MG/DL (0.2-1.0) Aspartate Amino Transf (AST/SGOT) 24 U/L (15-37) Alanine Aminotransferase (ALT/SGPT) 32 U/L (12-78) Alkaline Phosphatase 94 U/L (46-116) Total Protein 7.0 G/DL (6.4-8.2) Albumin 2.7 G/DL (3.4-5.0) L Globulin 4.3 g/dL Albumin/Globulin Ratio 0.6 (1.0-2.7) L Arterial Blood pH 7.370 (7.350-7.450) Arterial Blood Partial Pressure CO2 63.6 mmHg (35.0-45.0) *H Arterial Blood Partial Pressure O2 78.8 mmHg (75.0-100.0) Arterial Blood HCO3 35.9 mmol/L (22.0-26.0) H Arterial Blood Oxygen Saturation 96.0 % (95-100) Arterial Blood Base Excess 8.4 (-2-2) H Apollo Test Positive Assessment/Plan Assessment/Plan E.coli UTI Sepsis Metabolic and toxic encephalopathies Cerebrovascular disease with dementia Acute myocardial ischemia and possible NSTEMI Hypovolemia and dehydration corrected Hypertension/HHD Ac/chronic respiratory acidosis Respiratory failure Ac diastolic CHF improving Metabolic acidosis Pleural effusions Continue anti-anginal regimen; titrate meds for BP control. Nitrates added. Antimicrobials Additional diuresis with loop diuretic and acetazolamide. Monitor acid-base parameters. Bipap support Real Magana MD May 16, 2020 12:10
[2020-05-16 16:00] VITALS: BP 126/68
--- NOTE | 2020-05-16 16:28 | Surgery Progress Note ---
Surgery Progress Note Subjective Additional Comments no acute events Objective Last 24 Hour Vital Signs Date Time Temp Pulse Resp B/P (MAP) Pulse Ox O2 Delivery O2 Flow Rate FiO2 05/16/20 16:00 30 05/16/20 16:00 96.3 60 20 126/68 (87) 100 05/16/20 16:00 Bi-pap 05/16/20 15:03 61 21 100 30 05/16/20 13:15 66 18 100 30 05/16/20 12:00 97.3 65 24 108/64 (79) 100 05/16/20 12:00 81 05/16/20 12:00 30 05/16/20 12:00 Bi-pap 05/16/20 11:10 66 31 100 30 05/16/20 09:26 72 134/77 05/16/20 09:24 72 134/77 05/16/20 09:15 72 32 100 30 05/16/20 08:00 97.6 72 24 132/77 (95) 100 05/16/20 08:00 70 05/16/20 08:00 30 05/16/20 08:00 Bi-pap 05/16/20 07:10 99 Bi-Pap 30 05/16/20 07:10 74 27 99 30 05/16/20 05:09 72 28 99 30 05/16/20 04:36 Bi-pap 05/16/20 04:00 30 05/16/20 04:00 97.5 71 22 136/74 (94) 100 05/16/20 03:38 69 05/16/20 03:21 70 30 100 30 05/16/20 01:41 67 27 100 30 05/16/20 00:00 82 05/16/20 00:00 97.7 64 22 129/62 (84) 100 05/16/20 00:00 30 05/15/20 21:40 65 29 100 30 05/15/20 20:51 80 123/75 05/15/20 20:00 97.7 75 20 123/75 (91) 100 05/15/20 20:00 30 05/15/20 19:42 88 05/15/20 19:23 63 31 99 30 05/15/20 19:18 99 Bi-Pap 30 05/15/20 17:25 62 30 99 30 I&O Intake and Output 05/15/20 05/16/20 19:00 07:00 Intake Total 655 ml 705 ml Output Total 500 ml Balance 655 ml 205 ml Intake Free Water 175 ml 225 ml Tube Feeding 480 ml 480 ml Output Urine Total 500 ml # Voids 3 # Bowel Movements 2 Dressing: saturated Cardiovascular: RSR Respiratory: decreased breath sounds Abdomen: non-tender, present bowel sounds Extremities: no tenderness, no cyanosis Laboratory Tests Test 05/16/20 03:20 05/16/20 09:48 White Blood Count 8.3 K/UL (4.8-10.8) Red Blood Count 3.95 M/UL (4.70-6.10) L Hemoglobin 12.6 G/DL (14.2-18.0) L Hematocrit 41.0 % (42.0-52.0) L Mean Corpuscular Volume 104 FL (80-99) H Mean Corpuscular Hemoglobin 32.0 PG (27.0-31.0) H Mean Corpuscular Hemoglobin Concent 30.9 G/DL (32.0-36.0) L Red Cell Distribution Width 14.0 % (11.6-14.8) Platelet Count 166 K/UL (150-450) Mean Platelet Volume 10.9 FL (6.5-10.1) H Neutrophils (%) (Auto) 68.0 % (45.0-75.0) Lymphocytes (%) (Auto) 18.1 % (20.0-45.0) L Monocytes (%) (Auto) 10.3 % (1.0-10.0) H Eosinophils (%) (Auto) 3.0 % (0.0-3.0) Basophils (%) (Auto) 0.6 % (0.0-2.0) Sodium Level 140 MMOL/L (136-145) Potassium Level 4.4 MMOL/L (3.5-5.1) Chloride Level 104 MMOL/L (98-107) Carbon Dioxide Level 34 MMOL/L (21-32) H Anion Gap 2 mmol/L (5-15) L Blood Urea Nitrogen 25 mg/dL (7-18) H Creatinine 0.5 MG/DL (0.55-1.30) L Estimat Glomerular Filtration Rate > 60 mL/min (>60) Glucose Level 119 MG/DL (74-106) H Calcium Level 8.6 MG/DL (8.5-10.1) Total Bilirubin 0.2 MG/DL (0.2-1.0) Aspartate Amino Transf (AST/SGOT) 24 U/L (15-37) Alanine Aminotransferase (ALT/SGPT) 32 U/L (12-78) Alkaline Phosphatase 94 U/L (46-116) Total Protein 7.0 G/DL (6.4-8.2) Albumin 2.7 G/DL (3.4-5.0) L Globulin 4.3 g/dL Albumin/Globulin Ratio 0.6 (1.0-2.7) L Arterial Blood pH 7.370 (7.350-7.450) Arterial Blood Partial Pressure CO2 63.6 mmHg (35.0-45.0) *H Arterial Blood Partial Pressure O2 78.8 mmHg (75.0-100.0) Arterial Blood HCO3 35.9 mmol/L (22.0-26.0) H Arterial Blood Oxygen Saturation 96.0 % (95-100) Arterial Blood Base Excess 8.4 (-2-2) H Apollo Test Positive Plan Problems: (1) Deep tissue injury Assessment & Plan: Patient identified to have bilateral heel concerns for potential developing DTI. Soft boggy no fluid collection no acute injury at this time. Patient identified to have sacral erythema and skin changes with concerns for developing deep tissue injury as well. No open areas. No fluid collections no fluctuance no drainage. On the scrotum patient is identified to have edema erythema and some abrasion along with incontinence associated dermatitis in the area. Patient identified to have abrasion to the nasal brim secondary to a facemask placement. Patient is chronically ill elderly and malnourished. Wound evaluated and care plan initiated. Treatment plan Apply skin protectant to the nasal bridge followed by foam dressing prior to facemask placement. Patient currently requires oxygen supplementation and therefore important to ensure receiving such along with protection of underlying epidermis. Apply OPTi foam to heels change every 3 days offload pressure with pillows Apply OPTi foam to sacral area monitor for incontinence change accordingly every 3 days and as needed saturation. Soft towel under scrotum. Continue with respiratory supportive care Turn every 2 hours Offload pressure with pillows Continue tube feeds nutritional optimization we will follow with recommendations thank you for let me participate patient's care (2) Dementia with behavioral problem (3) UTI (urinary tract infection) (4) Elevated troponin I level (5) AMS (altered mental status) (6) Dysphagia Assessment & Plan: DAILY ESTIMATED NEEDS: Needs based on Pulmonary, cardiac, 62kg 25-30 kcals/kg 0321-8842 total kcals 1-1.5 g protein/kg 62-93 g total protein 25-30 mL/kg 6035-5763 total fluid mLs NUTRITION DIAGNOSIS: Swallowing difficulty r/t dysphagia as evidenced by pt is PEG dep, currently on continuous BIPAP. CURRENT TF: Glucerna 1.5 @ 40ml/hr ENTERAL NUTRITION RECOMMENDATIONS: Glucerna 1.5 goal of 45ml/hr x 24 hrs to provide 1080ml, 1620 kcal, 89g pro, 820ml free water * Maintain carb controlled TF of Glucerna 1.5 while CO2 critically elevated * As medically appropriate, increase goal rate to 45ml/hr x 24 hrs to better meet nutritional needs. * HOB over 30 degrees/ water flush per MD ADDITIONAL RECOMMENDATIONS: 1) Monitor BIPAP usage, safety of GT feeds -> continuous BIPAP at this time 2) Lytes daily, replete as needed Current TF Glucerna 1.5 @goal of 40ml/hr provides 2419mg K/day 3) Calibrated bed scale wts (Bed scale shows uptrend: 65kg-> 71kg) 4) Rec HgA1C for eval of BG control 5) F/up w/ WC eval: Continue MVI and Vit C (7) Seizure (8) NSTEMI (non-ST elevated myocardial infarction) Benitez Mayorga May 16, 2020 16:28
[2020-05-16] MEDS: Nitroglycerin 2% oint pkt TOPIC SCH (18:25)
[2020-05-16 20:00] VITALS: BP 105/74
[2020-05-16] MEDS: Tamsulosin 0.4mg cap ORAL SCH (20:27)
[2020-05-17] VITALS: BP 113/63
[2020-05-17 04:00] VITALS: BP 126/70
[2020-05-17] MEDS: Nitroglycerin 2% oint pkt TOPIC SCH ×3 (05:45→18:00)
[2020-05-17 06:17] LABS: EOSINOPHILS % (AUTO) 2.2 % (0.0-3.0); HEMATOCRIT 39.9 % (42.0-52.0); HEMOGLOBIN 12.6 G/DL (14.2-18.0); LYMPHOCYTES % (AUTO) 16.9 % (20.0-45.0); MEAN CORPUSCULAR VOLUME 103 FL (80-99); MONOCYTES % (AUTO) 11.4 % (1.0-10.0); NEUTROPHILS % (AUTO) 68.6 % (45.0-75.0); PLATELET COUNT 168 K/UL (150-450); RED BLOOD COUNT 3.89 M/UL (4.70-6.10); WHITE BLOOD COUNT 8.9 K/UL (4.8-10.8)
[2020-05-17 06:19] LABS: ANION GAP 2 mmol/L (5-15); BLOOD UREA NITROGEN 33 mg/dL (7-18); CALCIUM 8.9 MG/DL (8.5-10.1); CARBON DIOXIDE 36 MMOL/L (21-32); CHLORIDE 103 MMOL/L (98-107); CREATININE 0.8 MG/DL (0.55-1.30); SODIUM 141 MMOL/L (136-145)
[2020-05-17 08:00] VITALS: BP 139/74
[2020-05-17] MEDS: Multivitamins W/Minerals 15 ML UDC GT SCH (08:49)
[2020-05-17] MEDS: Aspirin Baby 81mg GT SCH (08:52)
[2020-05-17] MEDS: Ascorbic Acid 500mg tab GT SCH (08:53)
[2020-05-17] MEDS: Docusate 100mg/10ml Liq GT SCH ×2 (08:53→18:00)
[2020-05-17] MEDS: levETIRAcetam 500mg/5ml Liquid GT SCH ×2 (08:54→20:28)
[2020-05-17] MEDS: Heparin 5000 units/ml inj SUBQ SCH ×2 (08:55→20:28)
--- NOTE | 2020-05-17 09:37 | Pulmonology Progress Note ---
Subjective ROS Limited/Unobtainable: Yes Constitutional: Denies: fever Allergies: Coded Allergies: PENICILLINS (Unverified Allergy, Unknown, 08/11/19) All Systems: reviewed and negative except above Subjective care noted on BIPAP and noted worsening CO2 retention improved no distress acid base improved imaging noted Objective Last 24 Hour Vital Signs Date Time Temp Pulse Resp B/P (MAP) Pulse Ox O2 Delivery O2 Flow Rate FiO2 05/17/20 08:53 85 126/70 05/17/20 08:49 45 126/70 05/17/20 08:21 Bi-pap 05/17/20 08:00 100 05/17/20 08:00 97.7 73 15 139/74 (95) 99 05/17/20 05:45 126/70 05/17/20 05:09 45 23 99 30 05/17/20 04:00 Bi-pap 05/17/20 04:00 97.4 66 19 126/70 (88) 100 05/17/20 04:00 30 05/17/20 03:49 82 05/17/20 01:41 54 19 98 30 05/17/20 00:00 Bi-pap 05/17/20 00:00 97.9 69 16 113/63 (80) 99 05/16/20 23:43 39 15 99 30 05/16/20 21:44 37 16 99 30 05/16/20 21:43 99 Bi-Pap 30 05/16/20 20:27 75 115/80 05/16/20 20:00 30 05/16/20 20:00 97.7 75 20 105/74 (84) 100 05/16/20 20:00 77 05/16/20 20:00 Bi-pap 05/16/20 19:20 62 19 98 30 05/16/20 18:25 126/68 05/16/20 17:10 68 23 100 30 05/16/20 16:00 30 05/16/20 16:00 96.3 60 20 126/68 (87) 100 05/16/20 16:00 Bi-pap 05/16/20 16:00 75 05/16/20 15:03 61 21 100 30 05/16/20 13:15 66 18 100 30 05/16/20 12:00 97.3 65 24 108/64 (79) 100 11/6/20 12:00 81 05/16/20 12:00 30 05/16/20 12:00 Bi-pap 05/16/20 11:10 66 31 100 30 Intake and Output 05/16/20 05/17/20 19:00 07:00 Intake Total 655 ml 705 ml Output Total 1100 ml 800 ml Balance -445 ml -95 ml Intake Free Water 225 ml Tube Feeding 480 ml 480 ml Hemodialysis 175 ml Output Urine Total 1100 ml 800 ml # Bowel Movements 3 2 Objective WDWN NAD reduced breath sounds bilaterally without rhonchi [id number] without MRG NABS nontender no CC mild edema nonfocal on BIPAP reduced LOC Laboratory Tests 05/16/20 09:48: Arterial Blood pH 7.370, Arterial Blood Partial Pressure CO2 63.6*H, Arterial Blood Partial Pressure O2 78.8, Arterial Blood HCO3 35.9H, Arterial Blood Oxygen Saturation 96.0, Arterial Blood Base Excess 8.4H, Apollo Test Positive 05/17/20 05:50: White Blood Count 8.9, Red Blood Count 3.89L, Hemoglobin 12.6L, Hematocrit 39.9L , Mean Corpuscular Volume 103H, Mean Corpuscular Hemoglobin 32.4H, Mean Corpuscular Hemoglobin Concent 31.6L, Red Cell Distribution Width 14.0, Platelet Count 168, Mean Platelet Volume 10.3H, Neutrophils (%) (Auto) 68.6, Lymphocytes (%) (Auto) 16.9L, Monocytes (%) (Auto) 11.4H, Eosinophils (%) (Auto) 2.2, Basophils (%) (Auto) 1.0, Sodium Level 141, Potassium Level 4.0, Chloride Level 103, Carbon Dioxide Level 36H, Anion Gap 2L, Blood Urea Nitrogen 33H, Creatinine 0.8#, Estimat Glomerular Filtration Rate > 60, Glucose Level 142H, Calcium Level 8.9 Current Medications Medications (Trade) Dose Ordered Sig/Mayela Route PRN Reason Start Time Stop Time Status Last Admin Dose Admin Acetaminophen (Tylenol) 650 mg Q4H PRN GT back pain 05/06/20 15:15 06/05/20 15:14 05/16/20 07:27 Acetazolamide (Diamox) 250 mg TWICE A DAY GT 05/13/20 09:00 06/12/20 08:59 05/17/20 08:52 Amlodipine Besylate (Norvasc) 5 mg DAILY GT 05/07/20 09:00 06/06/20 08:59 05/17/20 08:49 Ascorbic Acid (Vitamin C) 500 mg DAILY GT 05/07/20 09:00 06/06/20 08:59 05/17/20 08:53 Aspirin (ASA) 81 mg DAILY GT 05/07/20 09:00 06/21/20 08:59 05/17/20 08:52 Carvedilol (Coreg) 3.125 mg EVERY 12 HOURS GT 05/07/20 09:00 06/06/20 08:59 05/17/20 08:53 Clonidine HCl (Catapres Tab) 0.1 mg Q4H PRN ORAL SBP >160 05/08/20 22:15 08/06/20 22:14 Docusate Sodium (Colace) 200 mg BID GT 05/06/20 18:00 06/05/20 17:59 05/17/20 08:53 Furosemide (Lasix) 20 mg BID IV 05/16/20 18:00 06/15/20 17:59 05/17/20 08:53 Heparin Sodium (Porcine) (Heparin 5000 units/ml) 5,000 units EVERY 12 HOURS SUBQ 05/08/20 09:00 06/22/20 08:59 05/17/20 08:55 Levetiracetam (Keppra) 250 mg Q12HR GT 05/06/20 21:00 06/20/20 20:59 05/17/20 08:54 Multivitamins (Multivitamins W/ Minerals 15ml Liquid) 5 ml DAILY GT 05/07/20 09:00 06/06/20 08:59 05/17/20 08:49 Nitroglycerin (Nitro-Bid) 1 inch TID@0600,1200,1800 TOPIC 05/16/20 18:00 06/15/20 17:59 05/17/20 05:45 Potassium Chloride (K-Dur) 20 meq DAILY GT 05/13/20 09:00 08/11/20 08:59 05/17/20 08:49 Tamsulosin HCl (Flomax) 0.4 mg BEDTIME ORAL 05/06/20 21:00 06/05/20 20:59 05/16/20 20:27 Assessment/Plan Assessment/Plan ASSESSMENT: Pulmonary congestion, respiratory failure, hypoxemia dementia, G-tube, seizure disorder, congestive heart failure, COPD sepsis, and acute MO. acute on chronic CO2 retention PLAN: maintain oxygen and BIPAP repeat ABG and retry again off BIPAP. Breathi ng treatments and aspiration precautions. Monitor blood gases for change.keep negative. Maintain home meds and monitor with seizure medications. feeds and monitor residuals; DNR noted DVT prophylaxis continue as is monitor lytes remains guarded impression, plan, and exam edited and reviewed in detail care discussed with Attila Yuan MD May 17, 2020 09:37
--- NOTE | 2020-05-17 10:54 | General Progress Note ---
Subjective ROS Limited/Unobtainable: Yes Constitutional: Reports: malaise, weakness HEENT: Reports: no symptoms Cardiovascular: Reports: no symptoms Respiratory: Reports: cough, shortness of breath, SOB with excertion, SOB at rest Gastrointestinal/Abdominal: Reports: difficulty swallowing Genitourinary: Reports: no symptoms Neurologic/Psychiatric: Reports: pre-existing deficit, seizure Endocrine: Reports: no symptoms Hematologic/Lymphatic: Reports: anemia Allergies: Coded Allergies: PENICILLINS (Unverified Allergy, Unknown, 08/11/19) All Systems: reviewed and negative except above Subjective on bipap. shallow respirations. alert. no fevers. tolerating gt feeds. no szs. trying to take off bipap. Objective Last 24 Hour Vital Signs Date Time Temp Pulse Resp B/P (MAP) Pulse Ox O2 Delivery O2 Flow Rate FiO2 05/17/20 08:53 85 126/70 05/17/20 08:49 45 126/70 05/17/20 08:21 Bi-pap 05/17/20 08:00 100 05/17/20 08:00 97.7 73 15 139/74 (95) 99 05/17/20 05:45 126/70 05/17/20 05:09 45 23 99 30 05/17/20 04:00 Bi-pap 05/17/20 04:00 97.4 66 19 126/70 (88) 100 05/17/20 04:00 30 05/17/20 03:49 82 05/17/20 01:41 54 19 98 30 05/17/20 00:00 Bi-pap 05/17/20 00:00 97.9 69 16 113/63 (80) 99 05/16/20 23:43 39 15 99 30 05/16/20 21:44 37 16 99 30 05/16/20 21:43 99 Bi-Pap 30 05/16/20 20:27 75 115/80 05/16/20 20:00 30 05/16/20 20:00 97.7 75 20 105/74 (84) 100 05/16/20 20:00 77 05/16/20 20:00 Bi-pap 05/16/20 19:20 62 19 98 30 05/16/20 18:25 126/68 05/16/20 17:10 68 23 100 30 05/16/20 16:00 30 05/16/20 16:00 96.3 60 20 126/68 (87) 100 05/16/20 16:00 Bi-pap 05/16/20 16:00 75 05/16/20 15:03 61 21 100 30 05/16/20 13:15 66 18 100 30 05/16/20 12:00 97.3 65 24 108/64 (79) 100 05/16/20 12:00 81 05/16/20 12:00 30 05/16/20 12:00 Bi-pap 05/16/20 11:10 66 31 100 30 Intake and Output 05/16/20 05/17/20 19:00 07:00 Intake Total 655 ml 705 ml Output Total 1100 ml 800 ml Balance -445 ml -95 ml Intake Free Water 225 ml Tube Feeding 480 ml 480 ml Hemodialysis 175 ml Output Urine Total 1100 ml 800 ml # Bowel Movements 3 2 Laboratory Tests 05/17/20 05:50: White Blood Count 8.9, Red Blood Count 3.89L, Hemoglobin 12.6L, Hematocrit 39.9L , Mean Corpuscular Volume 103H, Mean Corpuscular Hemoglobin 32.4H, Mean Corpuscular Hemoglobin Concent 31.6L, Red Cell Distribution Width 14.0, Platelet Count 168, Mean Platelet Volume 10.3H, Neutrophils (%) (Auto) 68.6, Lymphocytes (%) (Auto) 16.9L, Monocytes (%) (Auto) 11.4H, Eosinophils (%) (Auto) 2.2, Basophils (%) (Auto) 1.0, Sodium Level 141, Potassium Level 4.0, Chloride Level 103, Carbon Dioxide Level 36H, Anion Gap 2L, Blood Urea Nitrogen 33H, Creatinine 0.8#, Estimat Glomerular Filtration Rate > 60, Glucose Level 142H, Calcium Level 8.9 Height (Feet): 5 Height (Inches): 6.00 Weight (Pounds): 137 Objective General Appearance: WD/WN, alert, confused EENT: normal ENT inspection Neck: normal alignment Cardiovascular: normal rate Respiratory/Chest: chest wall non-tender, lungs clear, normal breath sounds Abdomen: normal bowel sounds, non tender, soft, no organomegaly Edema: no edema noted Arm (L), no edema noted Arm (R) Neurologic: alert, disoriented Assessment/Plan Problem List: (1) Seizure ICD Codes: R56.9 - Unspecified convulsions SNOMED: 29195294 (2) Dysphagia ICD Codes: R13.10 - Dysphagia, unspecified SNOMED: 32964240, 297211538 (3) UTI (urinary tract infection) ICD Codes: N39.0 - Urinary tract infection, site not specified SNOMED: 48373073 (4) Elevated troponin I level ICD Codes: R77.8 - Other specified abnormalities of plasma proteins SNOMED: 155138766 (5) AMS (altered mental status) ICD Codes: R41.82 - Altered mental status, unspecified SNOMED: 864738352 (6) NSTEMI (non-ST elevated myocardial infarction) ICD Codes: I21.4 - Non-ST elevation (NSTEMI) myocardial infarction SNOMED: 51033826 Status: stable Assessment/Plan: bipap monitor abg- ordered for this am wean o2/bipap as able tube feeds monitor residual monitor for vomiting sz rx. sz precautions iv abx diuresis monitor cxr monitor labs anxiolytics as needed o2 resp rx dvt/stress ulcer prophylaxis. Jorge Kee MD May 17, 2020 10:54
[2020-05-17 12:08] VITALS: BP 123/69
--- NOTE | 2020-05-17 12:35 | Infectious Diseases Prog Note ---
Assessment/Plan Assessment/Plan A:1. Urinary tract infection treated 2. MRSA nasal colonization. 3. CHF. 4. COPD. 5. Seizures. 6. Dementia. 7. He is negative for COVID-19. 8. Hypercapnic respiratory failure 9. Pleural effusion PLAN: 1. Obseve off of antibiotic Subjective ROS Limited/Unobtainable: Yes Constitutional: Denies: fever Neurologic: Reports: confusion, other - on restraint Allergies: Coded Allergies: PENICILLINS (Unverified Allergy, Unknown, 08/11/19) Objective Last 24 Hour Vital Signs Date Time Temp Pulse Resp B/P (MAP) Pulse Ox O2 Delivery O2 Flow Rate FiO2 05/17/20 12:08 98.0 77 18 123/69 (87) 100 05/17/20 08:53 85 126/70 05/17/20 08:49 45 126/70 05/17/20 08:35 53 28 100 30 05/17/20 08:21 Bi-pap 05/17/20 08:00 100 05/17/20 08:00 97.7 73 15 139/74 (95) 99 05/17/20 07:05 85 22 99 30 05/17/20 07:05 99 Bi-Pap 30 05/17/20 05:45 126/70 05/17/20 05:09 45 23 99 30 05/17/20 04:00 Bi-pap 05/17/20 04:00 97.4 66 19 126/70 (88) 100 05/17/20 04:00 30 05/17/20 03:49 82 05/17/20 01:41 54 19 98 30 05/17/20 00:00 Bi-pap 05/17/20 00:00 97.9 69 16 113/63 (80) 99 05/16/20 23:43 39 15 99 30 05/16/20 21:44 37 16 99 30 05/16/20 21:43 99 Bi-Pap 30 05/16/20 20:27 75 115/80 05/16/20 20:00 30 05/16/20 20:00 97.7 75 20 105/74 (84) 100 05/16/20 20:00 77 05/16/20 20:00 Bi-pap 05/16/20 19:20 62 19 98 30 05/16/20 18:25 126/68 05/16/20 17:10 68 23 100 30 05/16/20 16:00 30 05/16/20 16:00 96.3 60 20 126/68 (87) 100 05/16/20 16:00 Bi-pap 05/16/20 16:00 75 05/16/20 15:03 61 21 100 30 05/16/20 13:15 66 18 100 30 Height (Feet): 5 Height (Inches): 6.00 Weight (Pounds): 137 HEENT: mucous membranes moist Respiratory/Chest: decreased breath sounds, other - on BIPAP Cardiovascular: normal rate Abdomen: soft, non tender Extremities: no edema Neurologic/Psychiatric: other - sleeping Laboratory Tests Test 05/17/20 05:50 White Blood Count 8.9 K/UL (4.8-10.8) Red Blood Count 3.89 M/UL (4.70-6.10) L Hemoglobin 12.6 G/DL (14.2-18.0) L Hematocrit 39.9 % (42.0-52.0) L Mean Corpuscular Volume 103 FL (80-99) H Mean Corpuscular Hemoglobin 32.4 PG (27.0-31.0) H Mean Corpuscular Hemoglobin Concent 31.6 G/DL (32.0-36.0) L Red Cell Distribution Width 14.0 % (11.6-14.8) Platelet Count 168 K/UL (150-450) Mean Platelet Volume 10.3 FL (6.5-10.1) H Neutrophils (%) (Auto) 68.6 % (45.0-75.0) Lymphocytes (%) (Auto) 16.9 % (20.0-45.0) L Monocytes (%) (Auto) 11.4 % (1.0-10.0) H Eosinophils (%) (Auto) 2.2 % (0.0-3.0) Basophils (%) (Auto) 1.0 % (0.0-2.0) Sodium Level 141 MMOL/L (136-145) Potassium Level 4.0 MMOL/L (3.5-5.1) Chloride Level 103 MMOL/L (98-107) Carbon Dioxide Level 36 MMOL/L (21-32) H Anion Gap 2 mmol/L (5-15) L Blood Urea Nitrogen 33 mg/dL (7-18) H Creatinine 0.8 MG/DL (0.55-1.30) # Estimat Glomerular Filtration Rate > 60 mL/min (>60) Glucose Level 142 MG/DL (74-106) H Calcium Level 8.9 MG/DL (8.5-10.1) Current Medications Medications (Trade) Dose Ordered Sig/Mayela Route PRN Reason Start Time Stop Time Status Last Admin Dose Admin Acetaminophen (Tylenol) 650 mg Q4H PRN GT back pain 05/06/20 15:15 06/05/20 15:14 05/16/20 07:27 Acetazolamide (Diamox) 250 mg TWICE A DAY GT 05/13/20 09:00 06/12/20 08:59 05/17/20 08:52 Amlodipine Besylate (Norvasc) 5 mg DAILY GT 05/07/20 09:00 06/06/20 08:59 05/17/20 08:49 Ascorbic Acid (Vitamin C) 500 mg DAILY GT 05/07/20 09:00 06/06/20 08:59 05/17/20 08:53 Aspirin (ASA) 81 mg DAILY GT 05/07/20 09:00 06/21/20 08:59 05/17/20 08:52 Carvedilol (Coreg) 3.125 mg EVERY 12 HOURS GT 05/07/20 09:00 06/06/20 08:59 05/17/20 08:53 Clonidine HCl (Catapres Tab) 0.1 mg Q4H PRN ORAL SBP >160 05/08/20 22:15 08/06/20 22:14 Docusate Sodium (Colace) 200 mg BID GT 05/06/20 18:00 06/05/20 17:59 05/17/20 08:53 Furosemide (Lasix) 20 mg BID IV 05/16/20 18:00 06/15/20 17:59 05/17/20 08:53 Heparin Sodium (Porcine) (Heparin 5000 units/ml) 5,000 units EVERY 12 HOURS SUBQ 05/08/20 09:00 06/22/20 08:59 05/17/20 08:55 Levetiracetam (Keppra) 250 mg Q12HR GT 05/06/20 21:00 06/20/20 20:59 05/17/20 08:54 Multivitamins (Multivitamins W/ Minerals 15ml Liquid) 5 ml DAILY GT 05/07/20 09:00 06/06/20 08:59 05/17/20 08:49 Nitroglycerin (Nitro-Bid) 1 inch TID@0600,1200,1800 TOPIC 05/16/20 18:00 06/15/20 17:59 05/17/20 05:45 Potassium Chloride (K-Dur) 20 meq DAILY GT 05/13/20 09:00 08/11/20 08:59 05/17/20 08:49 Tamsulosin HCl (Flomax) 0.4 mg BEDTIME ORAL 05/06/20 21:00 06/05/20 20:59 05/16/20 20:27 Luis Yanes MD May 17, 2020 12:35
--- NOTE | 2020-05-17 13:23 | Surgery Progress Note ---
Surgery Progress Note Subjective Additional Comments stable no n/v labs noted Objective Last 24 Hour Vital Signs Date Time Temp Pulse Resp B/P (MAP) Pulse Ox O2 Delivery O2 Flow Rate FiO2 05/17/20 12:08 98.0 77 18 123/69 (87) 100 05/17/20 12:00 123/69 05/17/20 08:53 85 126/70 05/17/20 08:49 45 126/70 05/17/20 08:35 53 28 100 30 05/17/20 08:21 Bi-pap 05/17/20 08:00 100 05/17/20 08:00 97.7 73 15 139/74 (95) 99 05/17/20 07:05 85 22 99 30 05/17/20 07:05 99 Bi-Pap 30 05/17/20 05:45 126/70 05/17/20 05:09 45 23 99 30 05/17/20 04:00 Bi-pap 05/17/20 04:00 97.4 66 19 126/70 (88) 100 05/17/20 04:00 30 05/17/20 03:49 82 05/17/20 01:41 54 19 98 30 05/17/20 00:00 Bi-pap 05/17/20 00:00 97.9 69 16 113/63 (80) 99 05/16/20 23:43 39 15 99 30 05/16/20 21:44 37 16 99 30 05/16/20 21:43 99 Bi-Pap 30 05/16/20 20:27 75 115/80 05/16/20 20:00 30 05/16/20 20:00 97.7 75 20 105/74 (84) 100 05/16/20 20:00 77 05/16/20 20:00 Bi-pap 05/16/20 19:20 62 19 98 30 05/16/20 18:25 126/68 05/16/20 17:10 68 23 100 30 05/16/20 16:00 30 05/16/20 16:00 96.3 60 20 126/68 (87) 100 05/16/20 16:00 Bi-pap 05/16/20 16:00 75 05/16/20 15:03 61 21 100 30 I&O Intake and Output 05/16/20 05/17/20 19:00 07:00 Intake Total 655 ml 705 ml Output Total 1100 ml 800 ml Balance -445 ml -95 ml Intake Free Water 225 ml Tube Feeding 480 ml 480 ml Hemodialysis 175 ml Output Urine Total 1100 ml 800 ml # Bowel Movements 3 2 Dressing: saturated Wound: intact Cardiovascular: RSR, murmurs Respiratory: decreased breath sounds Abdomen: non-tender, present bowel sounds Extremities: no tenderness, no cyanosis Laboratory Tests Test 05/17/20 05:50 White Blood Count 8.9 K/UL (4.8-10.8) Red Blood Count 3.89 M/UL (4.70-6.10) L Hemoglobin 12.6 G/DL (14.2-18.0) L Hematocrit 39.9 % (42.0-52.0) L Mean Corpuscular Volume 103 FL (80-99) H Mean Corpuscular Hemoglobin 32.4 PG (27.0-31.0) H Mean Corpuscular Hemoglobin Concent 31.6 G/DL (32.0-36.0) L Red Cell Distribution Width 14.0 % (11.6-14.8) Platelet Count 168 K/UL (150-450) Mean Platelet Volume 10.3 FL (6.5-10.1) H Neutrophils (%) (Auto) 68.6 % (45.0-75.0) Lymphocytes (%) (Auto) 16.9 % (20.0-45.0) L Monocytes (%) (Auto) 11.4 % (1.0-10.0) H Eosinophils (%) (Auto) 2.2 % (0.0-3.0) Basophils (%) (Auto) 1.0 % (0.0-2.0) Sodium Level 141 MMOL/L (136-145) Potassium Level 4.0 MMOL/L (3.5-5.1) Chloride Level 103 MMOL/L (98-107) Carbon Dioxide Level 36 MMOL/L (21-32) H Anion Gap 2 mmol/L (5-15) L Blood Urea Nitrogen 33 mg/dL (7-18) H Creatinine 0.8 MG/DL (0.55-1.30) # Estimat Glomerular Filtration Rate > 60 mL/min (>60) Glucose Level 142 MG/DL (74-106) H Calcium Level 8.9 MG/DL (8.5-10.1) Plan Problems: (1) Deep tissue injury Assessment & Plan: Patient identified to have bilateral heel concerns for potential developing DTI. Soft boggy no fluid collection no acute injury at this time. Patient identified to have sacral erythema and skin changes with concerns for developing deep tissue injury as well. No open areas. No fluid collections no fluctuance no drainage. On the scrotum patient is identified to have edema erythema and some abrasion along with incontinence associated dermatitis in the area. Patient identified to have abrasion to the nasal brim secondary to a facemask placement. Patient is chronically ill elderly and malnourished. Wound evaluated and care plan initiated. Treatment plan Apply skin protectant to the nasal bridge followed by foam dressing prior to facemask placement. Patient currently requires oxygen supplementation and therefore important to ensure receiving such along with protection of underlying epidermis. Apply OPTi foam to heels change every 3 days offload pressure with pillows Apply OPTi foam to sacral area monitor for incontinence change accordingly every 3 days and as needed saturation. Soft towel under scrotum. Continue with respiratory supportive care Turn every 2 hours Offload pressure with pillows Continue tube feeds nutritional optimization we will follow with recommendations thank you for let me participate patient's care (2) Dementia with behavioral problem (3) UTI (urinary tract infection) (4) Elevated troponin I level (5) AMS (altered mental status) (6) Dysphagia Assessment & Plan: DAILY ESTIMATED NEEDS: Needs based on Pulmonary, cardiac, 62kg 25-30 kcals/kg 8431-4529 total kcals 1-1.5 g protein/kg 62-93 g total protein 25-30 mL/kg 3725-9680 total fluid mLs NUTRITION DIAGNOSIS: Swallowing difficulty r/t dysphagia as evidenced by pt is PEG dep, currently on continuous BIPAP. CURRENT TF: Glucerna 1.5 @ 40ml/hr ENTERAL NUTRITION RECOMMENDATIONS: Glucerna 1.5 goal of 45ml/hr x 24 hrs to provide 1080ml, 1620 kcal, 89g pro, 820ml free water * Maintain carb controlled TF of Glucerna 1.5 while CO2 critically elevated * As medically appropriate, increase goal rate to 45ml/hr x 24 hrs to better meet nutritional needs. * HOB over 30 degrees/ water flush per MD ADDITIONAL RECOMMENDATIONS: 1) Monitor BIPAP usage, safety of GT feeds -> continuous BIPAP at this time 2) Lytes daily, replete as needed Current TF Glucerna 1.5 @goal of 40ml/hr provides 2419mg K/day 3) Calibrated bed scale wts (Bed scale shows uptrend: 65kg-> 71kg) 4) Rec HgA1C for eval of BG control 5) F/up w/ WC eval: Continue MVI and Vit C (7) Seizure (8) NSTEMI (non-ST elevated myocardial infarction) Benitez Mayorga May 17, 2020 13:23
[2020-05-17 16:00] VITALS: BP 126/60
[2020-05-17 20:00] VITALS: BP 123/60
[2020-05-17] MEDS: Tamsulosin 0.4mg cap ORAL SCH (20:28)
[2020-05-17] MEDS ORDERED: NS 275ml ONE (20:53)
[2020-05-18] VITALS: BP 122/64
[2020-05-18 04:00] VITALS: BP 121/71
[2020-05-18 05:09] LABS: BASOPHILS % (AUTO) 0.6 % (0.0-2.0); EOSINOPHILS % (AUTO) 1.9 % (0.0-3.0); HEMOGLOBIN 12.4 G/DL (14.2-18.0); LYMPHOCYTES % (AUTO) 20.1 % (20.0-45.0); MEAN CORPUSCULAR VOLUME 104 FL (80-99); MONOCYTES % (AUTO) 12.6 % (1.0-10.0); NEUTROPHILS % (AUTO) 64.7 % (45.0-75.0); PLATELET COUNT 169 K/UL (150-450); RED BLOOD COUNT 3.86 M/UL (4.70-6.10); RED CELL DISTRIBUTION WIDTH 13.8 % (11.6-14.8); WHITE BLOOD COUNT 8.7 K/UL (4.8-10.8)
[2020-05-18] MEDS: Nitroglycerin 2% oint pkt TOPIC SCH ×3 (05:20→17:34)
[2020-05-18 05:21] LABS: ALANINE AMINOTRANSFERASE 36 U/L (12-78); ALBUMIN 2.9 G/DL (3.4-5.0); ALBUMIN/GLOBULIN RATIO 0.7 (1.0-2.7); ALKALINE PHOSPHATASE 102 U/L (46-116); ANION GAP 2 mmol/L (5-15); ASPARTATE AMINO TRANSFERASE 27 U/L (15-37); BILIRUBIN,TOTAL 0.3 MG/DL (0.2-1.0); BLOOD UREA NITROGEN 34 mg/dL (7-18); CALCIUM 8.8 MG/DL (8.5-10.1); CARBON DIOXIDE 36 MMOL/L (21-32); CHLORIDE 106 MMOL/L (98-107); CREATININE 0.7 MG/DL (0.55-1.30); POTASSIUM 3.6 MMOL/L (3.5-5.1); SODIUM 144 MMOL/L (136-145)
[2020-05-18 08:00] VITALS: BP 133/71
[2020-05-18] MEDS: Aspirin Baby 81mg GT SCH (08:16)
[2020-05-18] MEDS: Ascorbic Acid 500mg tab GT SCH (08:16)
[2020-05-18] MEDS: Docusate 100mg/10ml Liq GT SCH ×2 (08:17→17:15)
[2020-05-18] MEDS: Multivitamins W/Minerals 15 ML UDC GT SCH (08:18)
[2020-05-18] MEDS: levETIRAcetam 500mg/5ml Liquid GT SCH ×2 (08:18→20:16)
[2020-05-18] MEDS: Heparin 5000 units/ml inj SUBQ SCH ×2 (08:19→20:19)
--- NOTE | 2020-05-18 09:02 | General Progress Note ---
Subjective ROS Limited/Unobtainable: No Constitutional: Reports: malaise, weakness HEENT: Reports: no symptoms Cardiovascular: Reports: no symptoms Respiratory: Reports: cough, shortness of breath, sputum Gastrointestinal/Abdominal: Reports: difficulty swallowing Genitourinary: Reports: no symptoms Neurologic/Psychiatric: Reports: pre-existing deficit, seizure Endocrine: Reports: no symptoms Hematologic/Lymphatic: Reports: anemia Allergies: Coded Allergies: PENICILLINS (Unverified Allergy, Unknown, 08/11/19) All Systems: reviewed and negative except above Subjective on bipap. resting. d?w RN. no new concerns. alert. no fevers. tolerating gt feeds. no szs. pulm, cards, ID noted. Objective Last 24 Hour Vital Signs Date Time Temp Pulse Resp B/P (MAP) Pulse Ox O2 Delivery O2 Flow Rate FiO2 05/18/20 08:45 93 05/18/20 08:17 82 133/71 05/18/20 08:16 82 133/71 05/18/20 08:07 98 Bi-Pap 30 05/18/20 08:00 97.7 82 12 133/71 (91) 99 05/18/20 07:14 66 18 97 30 05/18/20 05:20 121/71 05/18/20 04:44 72 15 99 30 05/18/20 04:00 88 05/18/20 04:00 Bi-pap 05/18/20 04:00 98.0 72 21 121/71 (88) 99 05/18/20 04:00 30 05/18/20 03:01 69 17 99 30 05/18/20 00:39 61 14 98 30 05/18/20 00:00 80 05/18/20 00:00 30 05/18/20 00:00 98.1 80 18 122/64 (83) 100 05/18/20 00:00 Bi-pap 05/17/20 23:04 68 15 100 30 05/17/20 20:31 64 16 99 30 05/17/20 20:30 74 123/60 05/17/20 20:00 98.1 74 22 123/60 (81) 99 05/17/20 20:00 Bi-pap 05/17/20 20:00 30 05/17/20 19:25 81 05/17/20 19:18 77 13 99 30 05/17/20 19:18 99 Bi-Pap 30 05/17/20 18:00 126/60 05/17/20 17:05 50 14 98 30 05/17/20 16:00 98.1 80 26 126/60 (82) 97 05/17/20 16:00 85 05/17/20 15:52 30 05/17/20 15:51 Bi-pap 05/17/20 15:05 54 27 99 30 05/17/20 13:00 52 32 97 30 05/17/20 12:08 98.0 77 18 123/69 (87) 100 05/17/20 12:00 Bi-pap 05/17/20 12:00 123/69 05/17/20 12:00 85 05/17/20 12:00 30 05/17/20 11:05 66 15 97 30 Intake and Output 05/17/20 05/18/20 19:00 07:00 Intake Total 705 ml 665 ml Output Total 400 ml Balance 705 ml 265 ml Intake Free Water 225 ml 225 ml Tube Feeding 480 ml 440 ml Output Urine Total 400 ml # Voids 4 # Bowel Movements 1 Laboratory Tests 05/18/20 02:50: White Blood Count 8.7, Red Blood Count 3.86L, Hemoglobin 12.4L, Hematocrit 40.0L , Mean Corpuscular Volume 104H, Mean Corpuscular Hemoglobin 32.2H, Mean Corpuscular Hemoglobin Concent 31.1L, Red Cell Distribution Width 13.8, Platelet Count 169, Mean Platelet Volume 10.5H, Neutrophils (%) (Auto) 64.7, Lymphocytes (%) (Auto) 20.1, Monocytes (%) (Auto) 12.6H, Eosinophils (%) (Auto) 1.9, B asophils (%) (Auto) 0.6, Sodium Level 144, Potassium Level 3.6, Chloride Level 106, Carbon Dioxide Level 36H, Anion Gap 2L, Blood Urea Nitrogen 34H, Creatinine 0.7, Estimat Glomerular Filtration Rate > 60, Glucose Level 118H, Calcium Level 8.8, Total Bilirubin 0.3, Aspartate Amino Transf (AST/SGOT) 27, Alanine Aminotransferase (ALT/SGPT) 36, Alkaline Phosphatase 102, Total Protein 7.2, Albumin 2.9L, Globulin 4.3, Albumin/Globulin Ratio 0.7L Height (Feet): 5 Height (Inches): 6.00 Weight (Pounds): 137 Objective General Appearance: WD/WN, alert, confused EENT: normal ENT inspection Neck: normal alignment Cardiovascular: normal rate Respiratory/Chest: chest wall non-tender, lungs clear, normal breath sounds Abdomen: normal bowel sounds, non tender, soft, no organomegaly Edema: no edema noted Arm (L), no edema noted Arm (R) Neurologic: alert, disoriented Assessment/Plan Problem List: (1) Seizure ICD Codes: R56.9 - Unspecified convulsions SNOMED: 00812882 (2) Dysphagia ICD Codes: R13.10 - Dysphagia, unspecified SNOMED: 48054295, 723513602 (3) UTI (urinary tract infection) ICD Codes: N39.0 - Urinary tract infection, site not specified SNOMED: 46597404 (4) Elevated troponin I level ICD Codes: R77.8 - Other specified abnormalities of plasma proteins SNOMED: 940904911 (5) AMS (altered mental status) ICD Codes: R41.82 - Altered mental status, unspecified SNOMED: 917894233 (6) NSTEMI (non-ST elevated myocardial infarction) ICD Codes: I21.4 - Non-ST elevation (NSTEMI) myocardial infarction SNOMED: 89150987 Status: stable Assessment/Plan: bipap monitor abg- ordered for this am wean o2/bipap as able tube feeds monitor residual monitor for vomiting sz rx. sz precautions iv abx diuresis cxr today monitor labs anxiolytics as needed o2 resp rx dvt/stress ulcer prophylaxis. Jorge Kee MD May 18, 2020 09:02
--- NOTE | 2020-05-18 11:14 | Infectious Diseases Prog Note ---
Assessment/Plan Assessment/Plan antibiotics : none A 1. Urinary tract infection with E. coli s/p rx 2. MRSA nasal colonization. 3. CHF. 4. COPD. 5. Seizures. 6. Dementia. 7. He is negative for COVID-19. P 1. continue off antibiotics Subjective ROS Limited/Unobtainable: Yes Allergies: Coded Allergies: PENICILLINS (Unverified Allergy, Unknown, 08/11/19) Objective Last 24 Hour Vital Signs Date Time Temp Pulse Resp B/P (MAP) Pulse Ox O2 Delivery O2 Flow Rate FiO2 05/18/20 09:18 91 19 99 30 05/18/20 08:45 93 05/18/20 08:17 82 133/71 05/18/20 08:16 82 133/71 05/18/20 08:07 98 Bi-Pap 30 05/18/20 08:00 30 05/18/20 08:00 97.7 82 12 133/71 (91) 99 05/18/20 08:00 Bi-pap 05/18/20 07:14 66 18 97 30 05/18/20 05:20 121/71 05/18/20 04:44 72 15 99 30 05/18/20 04:00 88 05/18/20 04:00 Bi-pap 05/18/20 04:00 98.0 72 21 121/71 (88) 99 05/18/20 04:00 30 05/18/20 03:01 69 17 99 30 05/18/20 00:39 61 14 98 30 05/18/20 00:00 80 05/18/20 00:00 30 05/18/20 00:00 98.1 80 18 122/64 (83) 100 05/18/20 00:00 Bi-pap 05/17/20 23:04 68 15 100 30 05/17/20 20:31 64 16 99 30 05/17/20 20:30 74 123/60 05/17/20 20:00 98.1 74 22 123/60 (81) 99 05/17/20 20:00 Bi-pap 05/17/20 20:00 30 05/17/20 19:25 81 05/17/20 19:18 77 13 99 30 05/17/20 19:18 99 Bi-Pap 30 05/17/20 18:00 126/60 05/17/20 17:05 50 14 98 30 05/17/20 16:00 98.1 80 26 126/60 (82) 97 05/17/20 16:00 85 05/17/20 15:52 30 05/17/20 15:51 Bi-pap 05/17/20 15:05 54 27 99 30 05/17/20 13:00 52 32 97 30 05/17/20 12:08 98.0 77 18 123/69 (87) 100 05/17/20 12:00 Bi-pap 05/17/20 12:00 123/69 05/17/20 12:00 85 05/17/20 12:00 30 Height (Feet): 5 Height (Inches): 6.00 Weight (Pounds): 137 HEENT: other - on bipap Respiratory/Chest: lungs clear Cardiovascular: normal rate, regular rhythm, no gallop/murmur Abdomen: soft, non tender, other - GT Extremities: no edema Laboratory Tests Test 05/18/20 02:50 White Blood Count 8.7 K/UL (4.8-10.8) Red Blood Count 3.86 M/UL (4.70-6.10) L Hemoglobin 12.4 G/DL (14.2-18.0) L Hematocrit 40.0 % (42.0-52.0) L Mean Corpuscular Volume 104 FL (80-99) H Mean Corpuscular Hemoglobin 32.2 PG (27.0-31.0) H Mean Corpuscular Hemoglobin Concent 31.1 G/DL (32.0-36.0) L Red Cell Distribution Width 13.8 % (11.6-14.8) Platelet Count 169 K/UL (150-450) Mean Platelet Volume 10.5 FL (6.5-10.1) H Neutrophils (%) (Auto) 64.7 % (45.0-75.0) Lymphocytes (%) (Auto) 20.1 % (20.0-45.0) Monocytes (%) (Auto) 12.6 % (1.0-10.0) H Eosinophils (%) (Auto) 1.9 % (0.0-3.0) Basophils (%) (Auto) 0.6 % (0.0-2.0) Sodium Level 144 MMOL/L (136-145) Potassium Level 3.6 MMOL/L (3.5-5.1) Chloride Level 106 MMOL/L (98-107) Carbon Dioxide Level 36 MMOL/L (21-32) H Anion Gap 2 mmol/L (5-15) L Blood Urea Nitrogen 34 mg/dL (7-18) H Creatinine 0.7 MG/DL (0.55-1.30) Estimat Glomerular Filtration Rate > 60 mL/min (>60) Glucose Level 118 MG/DL (74-106) H Calcium Level 8.8 MG/DL (8.5-10.1) Total Bilirubin 0.3 MG/DL (0.2-1.0) Aspartate Amino Transf (AST/SGOT) 27 U/L (15-37) Alanine Aminotransferase (ALT/SGPT) 36 U/L (12-78) Alkaline Phosphatase 102 U/L (46-116) Total Protein 7.2 G/DL (6.4-8.2) Albumin 2.9 G/DL (3.4-5.0) L Globulin 4.3 g/dL Albumin/Globulin Ratio 0.7 (1.0-2.7) L Current Medications Medications (Trade) Dose Ordered Sig/Mayela Route PRN Reason Start Time Stop Time Status Last Admin Dose Admin Acetaminophen (Tylenol) 650 mg Q4H PRN GT back pain 05/06/20 15:15 06/05/20 15:14 05/16/20 07:27 Acetazolamide (Diamox) 250 mg TWICE A DAY GT 05/13/20 09:00 06/12/20 08:59 05/18/20 08:16 Amlodipine Besylate (Norvasc) 5 mg DAILY GT 05/07/20 09:00 06/06/20 08:59 05/18/20 08:17 Ascorbic Acid (Vitamin C) 500 mg DAILY GT 05/07/20 09:00 06/06/20 08:59 05/18/20 08:16 Aspirin (ASA) 81 mg DAILY GT 05/07/20 09:00 06/21/20 08:59 05/18/20 08:16 Carvedilol (Coreg) 3.125 mg EVERY 12 HOURS GT 05/07/20 09:00 06/06/20 08:59 05/18/20 08:16 Clonidine HCl (Catapres Tab) 0.1 mg Q4H PRN ORAL SBP >160 05/08/20 22:15 08/06/20 22:14 Docusate Sodium (Colace) 200 mg BID GT 05/06/20 18:00 06/05/20 17:59 05/18/20 08:17 Furosemide (Lasix) 20 mg BID IV 05/16/20 18:00 06/15/20 17:59 05/18/20 08:17 Heparin Sodium (Porcine) (Heparin 5000 units/ml) 5,000 units EVERY 12 HOURS SUBQ 05/08/20 09:00 06/22/20 08:59 05/18/20 08:19 Levetiracetam (Keppra) 250 mg Q12HR GT 05/06/20 21:00 06/20/20 20:59 05/18/20 08:18 Multivitamins (Multivitamins W/ Minerals 15ml Liquid) 5 ml DAILY GT 05/07/20 09:00 06/06/20 08:59 05/18/20 08:18 Nitroglycerin (Nitro-Bid) 1 inch TID@0600,1200,1800 TOPIC 05/16/20 18:00 06/15/20 17:59 05/18/20 05:20 Potassium Chloride (K-Dur) 20 meq DAILY GT 05/13/20 09:00 08/11/20 08:59 05/18/20 08:16 Tamsulosin HCl (Flomax) 0.4 mg BEDTIME ORAL 05/06/20 21:00 06/05/20 20:59 05/17/20 20:28 Josué Light MD May 18, 2020 11:14
--- NOTE | 2020-05-18 11:29 | Pulmonology Progress Note ---
Subjective ROS Limited/Unobtainable: Yes Constitutional: Denies: fever Allergies: Coded Allergies: PENICILLINS (Unverified Allergy, Unknown, 08/11/19) All Systems: reviewed and negative except above Subjective care noted on BIPAP and noted worsening CO2 retention improved no distress acid base improved imaging noted Objective Last 24 Hour Vital Signs Date Time Temp Pulse Resp B/P (MAP) Pulse Ox O2 Delivery O2 Flow Rate FiO2 05/18/20 09:18 91 19 99 30 05/18/20 08:45 93 05/18/20 08:17 82 133/71 05/18/20 08:16 82 133/71 05/18/20 08:07 98 Bi-Pap 30 05/18/20 08:00 30 05/18/20 08:00 97.7 82 12 133/71 (91) 99 05/18/20 08:00 Bi-pap 05/18/20 07:14 66 18 97 30 05/18/20 05:20 121/71 05/18/20 04:44 72 15 99 30 05/18/20 04:00 88 05/18/20 04:00 Bi-pap 05/18/20 04:00 98.0 72 21 121/71 (88) 99 05/18/20 04:00 30 05/18/20 03:01 69 17 99 30 05/18/20 00:39 61 14 98 30 05/18/20 00:00 80 05/18/20 00:00 30 05/18/20 00:00 98.1 80 18 122/64 (83) 100 05/18/20 00:00 Bi-pap 05/17/20 23:04 68 15 100 30 05/17/20 20:31 64 16 99 30 05/17/20 20:30 74 123/60 05/17/20 20:00 98.1 74 22 123/60 (81) 99 05/17/20 20:00 Bi-pap 05/17/20 20:00 30 05/17/20 19:25 81 05/17/20 19:18 77 13 99 30 05/17/20 19:18 99 Bi-Pap 30 05/17/20 18:00 126/60 05/17/20 17:05 50 14 98 30 05/17/20 16:00 98.1 80 26 126/60 (82) 97 05/17/20 16:00 85 05/17/20 15:52 30 05/17/20 15:51 Bi-pap 05/17/20 15:05 54 27 99 30 05/17/20 13:00 52 32 97 30 05/17/20 12:08 98.0 77 18 123/69 (87) 100 05/17/20 12:00 Bi-pap 05/17/20 12:00 123/69 05/17/20 12:00 85 05/17/20 12:00 30 Intake and Output 05/17/20 05/18/20 19:00 07:00 Intake Total 705 ml 665 ml Output Total 400 ml Balance 705 ml 265 ml Intake Free Water 225 ml 225 ml Tube Feeding 480 ml 440 ml Output Urine Total 400 ml # Voids 4 # Bowel Movements 1 Objective WDWN NAD reduced breath sounds bilaterally without rhonchi [id number] without MRG NABS nontender no CC mild edema nonfocal on BIPAP reduced LOC Laboratory Tests 05/18/20 02:50: White Blood Count 8.7, Red Blood Count 3.86L, Hemoglobin 12.4L, Hematocrit 40.0L , Mean Corpuscular Volume 104H, Mean Corpuscular Hemoglobin 32.2H, Mean Corpuscular Hemoglobin Concent 31.1L, Red Cell Distribution Width 13.8, Platelet Count 169, Mean Platelet Volume 10.5H, Neutrophils (%) (Auto) 64.7, Lymphocytes (%) (Auto) 20.1, Monocytes (%) (Auto) 12.6H, Eosinophils (%) (Auto) 1.9, Basophils (%) (Auto) 0.6, Sodium Level 144, Potassium Level 3.6, Chloride Level 106, Carbon Dioxide Level 36H, Anion Gap 2L, Blood Urea Nitrogen 34H, Creatinine 0.7, Estimat Glomerular Filtration Rate > 60, Glucose Level 118H, Calcium Level 8.8, Total Bilirubin 0.3, Aspartate Amino Transf (AST/SGOT) 27, Alanine Amino transferase (ALT/SGPT) 36, Alkaline Phosphatase 102, Total Protein 7.2, Albumin 2.9L, Globulin 4.3, Albumin/Globulin Ratio 0.7L Current Medications Medications (Trade) Dose Ordered Sig/Mayela Route PRN Reason Start Time Stop Time Status Last Admin Dose Admin Acetaminophen (Tylenol) 650 mg Q4H PRN GT back pain 05/06/20 15:15 06/05/20 15:14 05/16/20 07:27 Acetazolamide (Diamox) 250 mg TWICE A DAY GT 05/13/20 09:00 06/12/20 08:59 05/18/20 08:16 Amlodipine Besylate (Norvasc) 5 mg DAILY GT 05/07/20 09:00 06/06/20 08:59 05/18/20 08:17 Ascorbic Acid (Vitamin C) 500 mg DAILY GT 05/07/20 09:00 06/06/20 08:59 05/18/20 08:16 Aspirin (ASA) 81 mg DAILY GT 05/07/20 09:00 06/21/20 08:59 05/18/20 08:16 Carvedilol (Coreg) 3.125 mg EVERY 12 HOURS GT 05/07/20 09:00 06/06/20 08:59 05/18/20 08:16 Clonidine HCl (Catapres Tab) 0.1 mg Q4H PRN ORAL SBP >160 05/08/20 22:15 08/06/20 22:14 Docusate Sodium (Colace) 200 mg BID GT 05/06/20 18:00 06/05/20 17:59 05/18/20 08:17 Furosemide (Lasix) 20 mg BID IV 05/16/20 18:00 06/15/20 17:59 05/18/20 08:17 Heparin Sodium (Porcine) (Heparin 5000 units/ml) 5,000 units EVERY 12 HOURS SUBQ 05/08/20 09:00 06/22/20 08:59 05/18/20 08:19 Levetiracetam (Keppra) 250 mg Q12HR GT 05/06/20 21:00 06/20/20 20:59 05/18/20 08:18 Multivitamins (Multivitamins W/ Minerals 15ml Liquid) 5 ml DAILY GT 05/07/20 09:00 06/06/20 08:59 05/18/20 08:18 Nitroglycerin (Nitro-Bid) 1 inch TID@0600,1200,1800 TOPIC 05/16/20 18:00 06/15/20 17:59 05/18/20 05:20 Potassium Chloride (K-Dur) 20 meq DAILY GT 05/13/20 09:00 08/11/20 08:59 05/18/20 08:16 Tamsulosin HCl (Flomax) 0.4 mg BEDTIME ORAL 05/06/20 21:00 06/05/20 20:59 05/17/20 20:28 Assessment/Plan Assessment/Plan ASSESSMENT: Pulmonary congestion, respiratory failure, hypoxemia dementia, G-tube, seizure disorder, congestive heart failure, COPD sepsis, and acute MT. acute on chronic CO2 retention PLAN: maintain oxygen and BIPAP repeat ABG and retry again off BIPAP. Breathing treatments and aspiration precautions. Monitor blood gases for change.keep negative. Maintain home meds and monitor with seizure medications. feeds and monitor residuals; DNR noted DVT prophylaxis continue as is monitor lytes remains guarded impression, plan, and exam edited and reviewed in detail care discussed with Attila Yuan MD May 18, 2020 11:29
[2020-05-18 12:00] VITALS: BP 141/96
--- NOTE | 2020-05-18 14:27 | Cardiology Progress Note ---
Subjective DATE OF SERVICE: May 18, 2020 Still on bipap. O2 requirements decreasing; acid-base parameters slightly better. 7.37/64/79 (05/16/20) Troponin has normalized proBNP has decreased to 1985 yesterday CXR (05/16) continues to show pulmonary venous congestion and pleural fluid BP elevated this morning, but well controlled otherwise. Objective Last 24 Hour Vital Signs Date Time Temp Pulse Resp B/P (MAP) Pulse Ox O2 Delivery O2 Flow Rate FiO2 05/18/20 13:29 66 13 99 30 05/18/20 13:10 141/96 05/18/20 12:00 97.9 90 17 141/96 (111) 100 05/18/20 11:24 68 29 100 30 05/18/20 09:18 91 19 99 30 05/18/20 08:45 93 05/18/20 08:17 82 133/71 05/18/20 08:16 82 133/71 05/18/20 08:07 98 Bi-Pap 30 05/18/20 08:00 30 05/18/20 08:00 97.7 82 12 133/71 (91) 99 05/18/20 08:00 Bi-pap 05/18/20 07:14 66 18 97 30 05/18/20 05:20 121/71 05/18/20 04:44 72 15 99 30 05/18/20 04:00 88 05/18/20 04:00 Bi-pap 05/18/20 04:00 98.0 72 21 121/71 (88) 99 05/18/20 04:00 30 05/18/20 03:01 69 17 99 30 05/18/20 00:39 61 14 98 30 05/18/20 00:00 80 05/18/20 00:00 30 05/18/20 00:00 98.1 80 18 122/64 (83) 100 05/18/20 00:00 Bi-pap 05/17/20 23:04 68 15 100 30 05/17/20 20:31 64 16 99 30 05/17/20 20:30 74 123/60 05/17/20 20:00 98.1 74 22 123/60 (81) 99 05/17/20 20:00 Bi-pap 05/17/20 20:00 30 05/17/20 19:25 81 05/17/20 19:18 77 13 99 30 05/17/20 19:18 99 Bi-Pap 30 05/17/20 18:00 126/60 05/17/20 17:05 50 14 98 30 05/17/20 16:00 98.1 80 26 126/60 (82) 97 05/17/20 16:00 85 05/17/20 15:52 30 05/17/20 15:51 Bi-pap 05/17/20 15:05 54 27 99 30 ROS: unchanged from my evaluation of 05/06/20 RHYTHM: NSR LUNGS: diminished breath sounds CARDIAC: normal rate, regular rhythm, normal S1 and S2 ABDOMEN: G-Tube intact EXTREMITIES: non-pitting, No edema Laboratory Tests Test 05/18/20 02:50 White Blood Count 8.7 K/UL (4.8-10.8) Red Blood Count 3.86 M/UL (4.70-6.10) L Hemoglobin 12.4 G/DL (14.2-18.0) L Hematocrit 40.0 % (42.0-52.0) L Mean Corpuscular Volume 104 FL (80-99) H Mean Corpuscular Hemoglobin 32.2 PG (27.0-31.0) H Mean Corpuscular Hemoglobin Concent 31.1 G/DL (32.0-36.0) L Red Cell Distribution Width 13.8 % (11.6-14.8) Platelet Count 169 K/UL (150-450) Mean Platelet Volume 10.5 FL (6.5-10.1) H Neutrophils (%) (Auto) 64.7 % (45.0-75.0) Lymphocytes (%) (Auto) 20.1 % (20.0-45.0) Monocytes (%) (Auto) 12.6 % (1.0-10.0) H Eosinophils (%) (Auto) 1.9 % (0.0-3.0) Basophils (%) (Auto) 0.6 % (0.0-2.0) Sodium Level 144 MMOL/L (136-145) Potassium Level 3.6 MMOL/L (3.5-5.1) Chloride Level 106 MMOL/L (98-107) Carbon Dioxide Level 36 MMOL/L (21-32) H Anion Gap 2 mmol/L (5-15) L Blood Urea Nitrogen 34 mg/dL (7-18) H Creatinine 0.7 MG/DL (0.55-1.30) Estimat Glomerular Filtration Rate > 60 mL/min (>60) Glucose Level 118 MG/DL (74-106) H Calcium Level 8.8 MG/DL (8.5-10.1) Total Bilirubin 0.3 MG/DL (0.2-1.0) Aspartate Amino Transf (AST/SGOT) 27 U/L (15-37) Alanine Aminotransferase (ALT/SGPT) 36 U/L (12-78) Alkaline Phosphatase 102 U/L (46-116) Total Protein 7.2 G/DL (6.4-8.2) Albumin 2.9 G/DL (3.4-5.0) L Globulin 4.3 g/dL Albumin/Globulin Ratio 0.7 (1.0-2.7) L Assessment/Plan Assessment/Plan E.coli UTI Sepsis Metabolic and toxic encephalopathies Cerebrovascular disease with dementia Acute myocardial ischemia and possible NSTEMI Hypovolemia and dehydration corrected Hypertension/HHD Ac/chronic respiratory acidosis Respiratory failure Ac diastolic CHF improving Metabolic acidosis Pleural effusions Continue anti-anginal regimen; titrate meds for BP control. Nitrates added. Antimicrobials Advancing diuresis with loop diuretic and acetazolamide. Monitor acid-base parameters. Bipap support with taper Real Magana MD May 18, 2020 14:27
[2020-05-18 16:00] VITALS: BP 131/46
--- NOTE | 2020-05-18 19:02 | Surgery Progress Note ---
Surgery Progress Note Subjective Symptoms: improved, tolerating diet, passing flatus, BM Objective Last 24 Hour Vital Signs Date Time Temp Pulse Resp B/P (MAP) Pulse Ox O2 Delivery O2 Flow Rate FiO2 05/18/20 17:34 131/46 05/18/20 16:40 46 22 100 30 05/18/20 16:00 30 05/18/20 16:00 85 05/18/20 16:00 98.4 77 12 131/46 (74) 100 05/18/20 16:00 Bi-pap 05/18/20 15:21 43 27 100 30 05/18/20 13:29 66 13 99 30 05/18/20 13:10 141/96 05/18/20 12:00 30 05/18/20 12:00 97.9 90 17 141/96 (111) 100 05/18/20 12:00 90 05/18/20 12:00 Bi-pap 05/18/20 11:24 68 29 100 30 05/18/20 09:18 91 19 99 30 05/18/20 08:45 93 05/18/20 08:17 82 133/71 05/18/20 08:16 82 133/71 05/18/20 08:07 98 Bi-Pap 30 05/18/20 08:00 30 05/18/20 08:00 97.7 82 12 133/71 (91) 99 05/18/20 08:00 Bi-pap 05/18/20 07:14 66 18 97 30 05/18/20 05:20 121/71 05/18/20 04:44 72 15 99 30 05/18/20 04:00 88 05/18/20 04:00 Bi-pap 05/18/20 04:00 98.0 72 21 121/71 (88) 99 05/18/20 04:00 30 05/18/20 03:01 69 17 99 30 05/18/20 00:39 61 14 98 30 05/18/20 00:00 80 05/18/20 00:00 30 05/18/20 00:00 98.1 80 18 122/64 (83) 100 05/18/20 00:00 Bi-pap 05/17/20 23:04 68 15 100 30 05/17/20 20:31 64 16 99 30 05/17/20 20:30 74 123/60 05/17/20 20:00 98.1 74 22 123/60 (81) 99 05/17/20 20:00 Bi-pap 05/17/20 20:00 30 05/17/20 19:25 81 05/17/20 19:18 77 13 99 30 05/17/20 19:18 99 Bi-Pap 30 I&O Intake and Output 05/17/20 05/18/20 19:00 07:00 Intake Total 705 ml 705 ml Output Total 400 ml Balance 705 ml 305 ml Intake Free Water 225 ml 225 ml Tube Feeding 480 ml 480 ml Output Urine Total 400 ml # Voids 4 # Bowel Movements 1 Dressing: saturated Cardiovascular: RSR Respiratory: decreased breath sounds Abdomen: non-tender, present bowel sounds Extremities: no edema, no tenderness, no cyanosis Laboratory Tests Test 05/18/20 02:50 White Blood Count 8.7 K/UL (4.8-10.8) Red Blood Count 3.86 M/UL (4.70-6.10) L Hemoglobin 12.4 G/DL (14.2-18.0) L Hematocrit 40.0 % (42.0-52.0) L Mean Corpuscular Volume 104 FL (80-99) H Mean Corpuscular Hemoglobin 32.2 PG (27.0-31.0) H Mean Corpuscular Hemoglobin Concent 31.1 G/DL (32.0-36.0) L Red Cell Distribution Width 13.8 % (11.6-14.8) Platelet Count 169 K/UL (150-450) Mean Platelet Volume 10.5 FL (6.5-10.1) H Neutrophils (%) (Auto) 64.7 % (45.0-75.0) Lymphocytes (%) (Auto) 20.1 % (20.0-45.0) Monocytes (%) (Auto) 12.6 % (1.0-10.0) H Eosinophils (%) (Auto) 1.9 % (0.0-3.0) Basophils (%) (Auto) 0.6 % (0.0-2.0) Sodium Level 144 MMOL/L (136-145) Potassium Level 3.6 MMOL/L (3.5-5.1) Chloride Level 106 MMOL/L (98-107) Carbon Dioxide Level 36 MMOL/L (21-32) H Anion Gap 2 mmol/L (5-15) L Blood Urea Nitrogen 34 mg/dL (7-18) H Creatinine 0.7 MG/DL (0.55-1.30) Estimat Glomerular Filtration Rate > 60 mL/min (>60) Glucose Level 118 MG/DL (74-106) H Calcium Level 8.8 MG/DL (8.5-10.1) Total Bilirubin 0.3 MG/DL (0.2-1.0) Aspartate Amino Transf (AST/SGOT) 27 U/L (15-37) Alanine Aminotransferase (ALT/SGPT) 36 U/L (12-78) Alkaline Phosphatase 102 U/L (46-116) Total Protein 7.2 G/DL (6.4-8.2) Albumin 2.9 G/DL (3.4-5.0) L Globulin 4.3 g/dL Albumin/Globulin Ratio 0.7 (1.0-2.7) L Plan Problems: (1) Deep tissue injury Assessment & Plan: Patient identified to have bilateral heel concerns for potential developing DTI. Soft boggy no fluid collection no acute injury at this time. Patient identified to have sacral erythema and skin changes with concerns for developing deep tissue injury as well. No open areas. No fluid collections no fluctuance no drainage. On the scrotum patient is identified to have edema erythema and some abrasion along with incontinence associated dermatitis in the area. Patient identified to have abrasion to the nasal brim secondary to a facemask placement. Patient is chronically ill elderly and malnourished. Wound evaluated and care plan initiated. Treatment plan Apply skin protectant to the nasal bridge followed by foam dressing prior to facemask placement. Patient currently requires oxygen supplementation and therefore important to ensure receiving such along with protection of underlying epidermis. Apply OPTi foam to heels change every 3 days offload pressure with pillows Apply OPTi foam to sacral area monitor for incontinence change accordingly every 3 days and as needed saturation. Soft towel under scrotum. Continue with respiratory supportive care Turn every 2 hours Offload pressure with pillows Continue tube feeds nutritional optimization we will follow with recommendations thank you for let me participate patient's care (2) Dementia with behavioral problem (3) UTI (urinary tract infection) (4) Elevated troponin I level (5) AMS (altered mental status) (6) Dysphagia Assessment & Plan: DAILY ESTIMATED NEEDS: Needs based on Pulmonary, cardiac, 62kg 25-30 kcals/kg 7359-8046 total kcals 1-1.5 g protein/kg 62-93 g total protein 25-30 mL/kg 0687-9038 total fluid mLs NUTRITION DIAGNOSIS: Swallowing difficulty r/t dysphagia as evidenced by pt is PEG dep, currently on continuous BIPAP. CURRENT TF: Glucerna 1.5 @ 40ml/hr ENTERAL NUTRITION RECOMMENDATIONS: Glucerna 1.5 goal of 45ml/hr x 24 hrs to provide 1080ml, 1620 kcal, 89g pro, 820ml free water * Maintain carb controlled TF of Glucerna 1.5 while CO2 critically elevated * As medically appropriate, increase goal rate to 45ml/hr x 24 hrs to better meet nutritional needs. * HOB over 30 degrees/ water flush per MD ADDITIONAL RECOMMENDATIONS: 1) Monitor BIPAP usage, safety of GT feeds -> continuous BIPAP at this time 2) Lytes daily, replete as needed Current TF Glucerna 1.5 @goal of 40ml/hr provides 2419mg K/day 3) Calibrated bed scale wts (Bed scale shows uptrend: 65kg-> 71kg) 4) Rec HgA1C for eval of BG control 5) F/up w/ WC eval: Continue MVI and Vit C (7) Seizure (8) NSTEMI (non-ST elevated myocardial infarction) Benitez Mayorga May 18, 2020 19:02
[2020-05-18 20:00] VITALS: BP 134/64
[2020-05-18] MEDS: Tamsulosin 0.4mg cap ORAL SCH (20:16)
[2020-05-19] VITALS: BP 107/61
[2020-05-19 04:00] VITALS: BP 120/74
[2020-05-19] MEDS: Nitroglycerin 2% oint pkt TOPIC SCH ×3 (05:23→17:21)
[2020-05-19 07:06] LABS: BASOPHILS % (AUTO) 0.8 % (0.0-2.0); EOSINOPHILS % (AUTO) 1.2 % (0.0-3.0); HEMATOCRIT 46.2 % (42.0-52.0); HEMOGLOBIN 14.5 G/DL (14.2-18.0); LYMPHOCYTES % (AUTO) 21.9 % (20.0-45.0); MEAN CORPUSCULAR VOLUME 103 FL (80-99); MONOCYTES % (AUTO) 13.3 % (1.0-10.0); NEUTROPHILS % (AUTO) 62.8 % (45.0-75.0); PLATELET COUNT 162 K/UL (150-450); RED BLOOD COUNT 4.49 M/UL (4.70-6.10); RED CELL DISTRIBUTION WIDTH 14.1 % (11.6-14.8); WHITE BLOOD COUNT 9.1 K/UL (4.8-10.8)
[2020-05-19 07:30] LABS: BLOOD UREA NITROGEN 39 mg/dL (7-18); CALCIUM 9.4 MG/DL (8.5-10.1); CHLORIDE 104 MMOL/L (98-107); CREATININE 0.8 MG/DL (0.55-1.30); POTASSIUM 3.7 MMOL/L (3.5-5.1); SODIUM 145 MMOL/L (136-145)
[2020-05-19 07:45] LABS: CARBON DIOXIDE 38 MMOL/L (21-32)
[2020-05-19 08:00] VITALS: BP 128/67
--- NOTE | 2020-05-19 08:03 | Pulmonology Progress Note ---
Subjective ROS Limited/Unobtainable: Yes Constitutional: Denies: fever Allergies: Coded Allergies: PENICILLINS (Unverified Allergy, Unknown, 08/11/19) All Systems: reviewed and negative except above Subjective care noted on BIPAP chronically no distress acid base noted imaging noted Objective Last 24 Hour Vital Signs Date Time Temp Pulse Resp B/P (MAP) Pulse Ox O2 Delivery O2 Flow Rate FiO2 05/19/20 06:47 76 18 97 30 05/19/20 06:47 98 Bi-Pap 30 05/19/20 05:23 125/82 05/19/20 05:01 52 26 98 30 05/19/20 04:00 Bi-pap 05/19/20 04:00 97.7 69 16 120/74 (89) 100 05/19/20 04:00 30 05/19/20 03:33 86 05/19/20 03:12 84 25 100 30 05/19/20 01:12 78 19 100 30 05/19/20 00:00 30 05/19/20 00:00 Bi-pap 05/19/20 00:00 97.7 85 12 107/61 (76) 100 05/18/20 23:29 90 05/18/20 22:41 66 20 100 30 05/18/20 20:46 82 21 100 30 05/18/20 20:16 79 134/64 05/18/20 20:00 30 05/18/20 20:00 Bi-pap 05/18/20 20:00 98.1 79 12 134/64 (87) 100 05/18/20 20:00 81 05/18/20 19:13 85 15 100 30 05/18/20 19:12 100 Bi-Pap 30 05/18/20 17:34 131/46 05/18/20 16:40 46 22 100 30 05/18/20 16:00 30 05/18/20 16:00 85 05/18/20 16:00 98.4 77 12 131/46 (74) 100 05/18/20 16:00 Bi-pap 05/18/20 15:21 43 27 100 30 05/18/20 13:29 66 13 99 30 05/18/20 13:10 141/96 05/18/20 12:00 30 05/18/20 12:00 97.9 90 17 141/96 (111) 100 05/18/20 12:00 90 05/18/20 12:00 Bi-pap 05/18/20 11:24 68 29 100 30 05/18/20 09:18 91 19 99 30 05/18/20 08:45 93 05/18/20 08:17 82 133/71 05/18/20 08:16 82 133/71 05/18/20 08:07 98 Bi-Pap 30 Intake and Output 05/18/20 05/19/20 19:00 07:00 Intake Total 705 ml 665 ml Output Total 800 ml Balance -95 ml 665 ml Intake Free Water 225 ml 225 ml Tube Feeding 480 ml 440 ml Output Urine Total 800 ml # Voids 4 # Bowel Movements 2 2 Objective WDWN NAD reduced breath sounds bilaterally without rhonchi [id number] without MRG NABS nontender no CC mild edema nonfocal on BIPAP reduced LOC Laboratory Tests 05/19/20 04:33: White Blood Count 9.1, Red Blood Count 4.49L, Hemoglobin 14.5, Hematocrit 46.2, Mean Corpuscular Volume 103H, Mean Corpuscular Hemoglobin 32.3H, Mean Corpuscular Hemoglobin Concent 31.4L, Red Cell Distribution Width 14.1, Platelet Count 162, Mean Platelet Volume 9.9, Neutrophils (%) (Auto) 62.8, Lymphocytes (%) (Auto) 21.9, Monocytes (%) (Auto) 13.3H, Eosinophils (%) (Auto) 1.2, Basophils (%) (Auto) 0.8, Sodium Level 145, Potassium Level 3.7, Chloride Level 104, Carbon Dioxide Level 38H, Blood Urea Nitrogen 39H, Creatinine 0.8, Estimat Glomerular Filtration Rate > 60, Glucose Level 119H, Calcium Level 9.4, Pro-B-Type Natriuretic Peptide 1027H Current Medications Medications (Trade) Dose Ordered Sig/Mayela Route PRN Reason Start Time Stop Time Status Last Admin Dose Admin Acetaminophen (Tylenol) 650 mg Q4H PRN GT back pain 05/06/20 15:15 06/05/20 15:14 05/16/20 07:27 Acetazolamide (Diamox) 250 mg TWICE A DAY GT 05/13/20 09:00 06/12/20 08:59 05/18/20 17:34 Amlodipine Besylate (Norvasc) 5 mg DAILY GT 05/07/20 09:00 06/06/20 08:59 05/18/20 08:17 Ascorbic Acid (Vitamin C) 500 mg DAILY GT 05/07/20 09:00 06/06/20 08:59 05/18/20 08:16 Aspirin (ASA) 81 mg DAILY GT 05/07/20 09:00 06/21/20 08:59 05/18/20 08:16 Carvedilol (Coreg) 3.125 mg EVERY 12 HOURS GT 05/07/20 09:00 06/06/20 08:59 05/18/20 20:16 Clonidine HCl (Catapres Tab) 0.1 mg Q4H PRN ORAL SBP >160 05/08/20 22:15 08/06/20 22:14 Docusate Sodium (Colace) 200 mg BID GT 05/06/20 18:00 06/05/20 17:59 05/18/20 08:17 Furosemide (Lasix) 40 mg BID IV 05/18/20 18:00 06/17/20 17:59 05/18/20 17:45 Heparin Sodium (Porcine) (Heparin 5000 units/ml) 5,000 units EVERY 12 HOURS SUBQ 05/08/20 09:00 06/22/20 08:59 05/18/20 20:19 Levetiracetam (Keppra) 250 mg Q12HR GT 05/06/20 21:00 06/20/20 20:59 05/18/20 20:16 Multivitamins (Multivitamins W/ Minerals 15ml Liquid) 5 ml DAILY GT 05/07/20 09:00 06/06/20 08:59 05/18/20 08:18 Nitroglycerin (Nitro-Bid) 1 inch TID@0600,1200,1800 TOPIC 05/16/20 18:00 06/15/20 17:59 05/19/20 05:23 Potassium Chloride (K-Dur) 20 meq DAILY GT 05/13/20 09:00 08/11/20 08:59 05/18/20 08:16 Tamsulosin HCl (Flomax) 0.4 mg BEDTIME ORAL 05/06/20 21:00 06/05/20 20:59 05/18/20 20:16 Assessment/Plan Assessment/Plan ASSESSMENT: Pulmonary congestion, respiratory failure, hypoxemia dementia, G-tube, seizure disorder, congestive heart failure, COPD sepsis, and acute [place]. acute on chronic CO2 retention PLAN: maintain oxygen and BIPAP repeat ABG and retry again off BIPAP today . Breathing treatments and aspiration precautions. Monitor blood gases for change.keep negative. Maintain home meds and monitor with seizure m edications. feeds and monitor residuals; DNR noted DVT prophylaxis continue as is monitor lytes remains guarded impression, plan, and exam edited and reviewed in detail care discussed with RN Attila Easley MD May 19, 2020 08:03
[2020-05-19] MEDS: Multivitamins W/Minerals 15 ML UDC GT SCH (08:21)
[2020-05-19] MEDS: Docusate 100mg/10ml Liq GT SCH ×2 (08:21→17:20)
[2020-05-19] MEDS: levETIRAcetam 500mg/5ml Liquid GT SCH ×2 (08:22→16:55)
[2020-05-19] MEDS: Ascorbic Acid 500mg tab GT SCH (08:22)
[2020-05-19] MEDS: Aspirin Baby 81mg GT SCH (08:22)
[2020-05-19] MEDS: Heparin 5000 units/ml inj SUBQ SCH ×2 (08:25→21:24)
--- NOTE | 2020-05-19 11:45 | Infectious Diseases Prog Note ---
Assessment/Plan Assessment/Plan antibiotics : none A 1. Urinary tract infection with E. coli s/p rx 2. MRSA nasal colonization. 3. CHF. 4. COPD. 5. Seizures. 6. Dementia. 7. He is negative for COVID-19. P 1. continue off antibiotics Subjective ROS Limited/Unobtainable: Yes Allergies: Coded Allergies: PENICILLINS (Unverified Allergy, Unknown, 08/11/19) Objective Last 24 Hour Vital Signs Date Time Temp Pulse Resp B/P (MAP) Pulse Ox O2 Delivery O2 Flow Rate FiO2 05/19/20 10:55 74 22 98 30 05/19/20 10:00 30 05/19/20 09:54 64 19 97 30 05/19/20 09:23 82 20 100 Venturi Mask 8.0 35 05/19/20 08:22 76 125/82 05/19/20 08:22 76 125/82 05/19/20 08:10 8.0 35 05/19/20 08:00 30 05/19/20 08:00 77 05/19/20 08:00 97.9 80 16 128/67 (87) 100 05/19/20 08:00 Bi-pap 05/19/20 06:47 76 18 97 30 05/19/20 06:47 98 Bi-Pap 30 05/19/20 05:23 125/82 05/19/20 05:01 52 26 98 30 05/19/20 04:00 Bi-pap 05/19/20 04:00 97.7 69 16 120/74 (89) 100 05/19/20 04:00 30 05/19/20 03:33 86 05/19/20 03:12 84 25 100 30 05/19/20 01:12 78 19 100 30 05/19/20 00:00 30 05/19/20 00:00 Bi-pap 05/19/20 00:00 97.7 85 12 107/61 (76) 100 05/18/20 23:29 90 05/18/20 22:41 66 20 100 30 05/18/20 20:46 82 21 100 30 05/18/20 20:16 79 134/64 05/18/20 20:00 30 05/18/20 20:00 Bi-pap 05/18/20 20:00 98.1 79 12 134/64 (87) 100 05/18/20 20:00 81 05/18/20 19:13 85 15 100 30 05/18/20 19:12 100 Bi-Pap 30 05/18/20 17:34 131/46 05/18/20 16:40 46 22 100 30 05/18/20 16:00 30 05/18/20 16:00 85 05/18/20 16:00 98.4 77 12 131/46 (74) 100 05/18/20 16:00 Bi-pap 05/18/20 15:21 43 27 100 30 05/18/20 13:29 66 13 99 30 05/18/20 13:10 141/96 05/18/20 12:00 30 05/18/20 12:00 97.9 90 17 141/96 (111) 100 05/18/20 12:00 90 05/18/20 12:00 Bi-pap Height (Feet): 5 Height (Inches): 6.00 Weight (Pounds): 137 HEENT: other - on bipap Respiratory/Chest: lungs clear Cardiovascular: normal rate, regular rhythm, no gallop/murmur Abdomen: soft, non tender, other - GT Extremities: no edema Laboratory Tests Test 05/19/20 04:33 05/19/20 09:10 White Blood Count 9.1 K/UL (4.8-10.8) Red Blood Count 4.49 M/UL (4.70-6.10) L Hemoglobin 14.5 G/DL (14.2-18.0) Hematocrit 46.2 % (42.0-52.0) Mean Corpuscular Volume 103 FL (80-99) H Mean Corpuscular Hemoglobin 32.3 PG (27.0-31.0) H Mean Corpuscular Hemoglobin Concent 31.4 G/DL (32.0-36.0) L Red Cell Distribution Width 14.1 % (11.6-14.8) Platelet Count 162 K/UL (150-450) Mean Platelet Volume 9.9 FL (6.5-10.1) Neutrophils (%) (Auto) 62.8 % (45.0-75.0) Lymphocytes (%) (Auto) 21.9 % (20.0-45.0) Monocytes (%) (Auto) 13.3 % (1.0-10.0) H Eosinophils (%) (Auto) 1.2 % (0.0-3.0) Basophils (%) (Auto) 0.8 % (0.0-2.0) Sodium Level 145 MMOL/L (136-145) Potassium Level 3.7 MMOL/L (3.5-5.1) Chloride Level 104 MMOL/L (98-107) Carbon Dioxide Level 38 MMOL/L (21-32) H Blood Urea Nitrogen 39 mg/dL (7-18) H Creatinine 0.8 MG/DL (0.55-1.30) Estimat Glomerular Filtration Rate > 60 mL/min (>60) Glucose Level 119 MG/DL (74-106) H Calcium Level 9.4 MG/DL (8.5-10.1) Pro-B-Type Natriuretic Peptide 1027 pg/mL (0-125) H Arterial Blood pH 7.305 (7.350-7.450) Arterial Blood Partial Pressure CO2 73.4 mmHg (35.0-45.0) *H Arterial Blood Partial Pressure O2 66.2 mmHg (75.0-100.0) L Arterial Blood HCO3 35.7 mmol/L (22.0-26.0) H Arterial Blood Oxygen Saturation 91.1 % (95-100) L Arterial Blood Base Excess 6.8 (-2-2) H Apollo Test Positive Current Medications Medications (Trade) Dose Ordered Sig/Mayela Route PRN Reason Start Time Stop Time Status Last Admin Dose Admin Acetaminophen (Tylenol) 650 mg Q4H PRN GT back pain 05/06/20 15:15 06/05/20 15:14 05/16/20 07:27 Acetazolamide (Diamox) 250 mg TWICE A DAY GT 05/13/20 09:00 06/12/20 08:59 05/19/20 08:22 Amlodipine Besylate (Norvasc) 5 mg DAILY GT 05/07/20 09:00 06/06/20 08:59 05/19/20 08:22 Ascorbic Acid (Vitamin C) 500 mg DAILY GT 05/07/20 09:00 06/06/20 08:59 05/19/20 08:22 Aspirin (ASA) 81 mg DAILY GT 05/07/20 09:00 06/21/20 08:59 05/19/20 08:22 Carvedilol (Coreg) 3.125 mg EVERY 12 HOURS GT 05/07/20 09:00 06/06/20 08:59 05/19/20 08:22 Clonidine HCl (Catapres Tab) 0.1 mg Q4H PRN ORAL SBP >160 05/08/20 22:15 08/06/20 22:14 Docusate Sodium (Colace) 200 mg BID GT 05/06/20 18:00 06/05/20 17:59 05/19/20 08:21 Furosemide (Lasix) 40 mg BID IV 05/18/20 18:00 06/17/20 17:59 05/19/20 08:21 Heparin Sodium (Porcine) (Heparin 5000 units/ml) 5,000 units EVERY 12 HOURS SUBQ 05/08/20 09:00 06/22/20 08:59 05/19/20 08:25 Levetiracetam (Keppra) 250 mg Q12HR GT 05/06/20 21:00 06/20/20 20:59 05/19/20 08:22 Multivitamins (Multivitamins W/ Minerals 15ml Liquid) 5 ml DAILY GT 05/07/20 09:00 06/06/20 08:59 05/19/20 08:21 Nitroglycerin (Nitro-Bid) 1 inch TID@0600,1200,1800 TOPIC 05/16/20 18:00 06/15/20 17:59 05/19/20 05:23 Potassium Chloride (K-Dur) 20 meq DAILY GT 05/13/20 09:00 08/11/20 08:59 05/19/20 08:22 Tamsulosin HCl (Flomax) 0.4 mg BEDTIME ORAL 05/06/20 21:00 06/05/20 20:59 05/18/20 20:16 Josué Light MD May 19, 2020 11:45
[2020-05-19 12:00] VITALS: BP 118/66
--- NOTE | 2020-05-19 13:26 | Diagnostic Imaging Report ---
Indication: Cough Technique: One view of the chest Comparison: 05/16/2020 Findings: Lung volumes are low. There is some opacity at the left lung base, likely atelectasis. There may be some pleural fluid on the left. Impression: Hypoventilatory exam. No definite significant interim change, over 3 days
--- NOTE | 2020-05-19 15:11 | General Progress Note ---
Subjective ROS Limited/Unobtainable: No Constitutional: Reports: malaise, weakness HEENT: Reports: no symptoms Cardiovascular: Reports: no symptoms Respiratory: Reports: cough, shortness of breath, sputum Gastrointestinal/Abdominal: Reports: difficulty swallowing Genitourinary: Reports: no symptoms Neurologic/Psychiatric: Reports: pre-existing deficit, seizure Endocrine: Reports: no symptoms Hematologic/Lymphatic: Reports: anemia Allergies: Coded Allergies: PENICILLINS (Unverified Allergy, Unknown, 08/11/19) All Systems: reviewed and negative except above Subjective on bipap. resting. Bipap with worsening respiratory acidosis. no fever or chills.no szs. on abx. on iv lasix. Objective Last 24 Hour Vital Signs Date Time Temp Pulse Resp B/P (MAP) Pulse Ox O2 Delivery O2 Flow Rate FiO2 05/19/20 13:10 69 18 98 30 05/19/20 12:44 118/66 05/19/20 12:00 97.9 72 22 118/66 (83) 100 05/19/20 12:00 Bi-pap 05/19/20 12:00 81 05/19/20 10:55 74 22 98 30 05/19/20 10:00 30 05/19/20 09:54 64 19 97 30 05/19/20 09:23 82 20 100 Venturi Mask 8.0 35 05/19/20 08:22 76 125/82 05/19/20 08:22 76 125/82 05/19/20 08:10 8.0 35 05/19/20 08:00 30 05/19/20 08:00 77 05/19/20 08:00 97.9 80 16 128/67 (87) 100 05/19/20 08:00 Bi-pap 05/19/20 06:47 76 18 97 30 05/19/20 06:47 98 Bi-Pap 30 05/19/20 05:23 125/82 05/19/20 05:01 52 26 98 30 05/19/20 04:00 Bi-pap 05/19/20 04:00 97.7 69 16 120/74 (89) 100 05/19/20 04:00 30 05/19/20 03:33 86 05/19/20 03:12 84 25 100 30 05/19/20 01:12 78 19 100 30 11/9/20 00:00 30 05/19/20 00:00 Bi-pap 05/19/20 00:00 97.7 85 12 107/61 (76) 100 05/18/20 23:29 90 05/18/20 22:41 66 20 100 30 05/18/20 20:46 82 21 100 30 05/18/20 20:16 79 134/64 05/18/20 20:00 30 05/18/20 20:00 Bi-pap 05/18/20 20:00 98.1 79 12 134/64 (87) 100 05/18/20 20:00 81 05/18/20 19:13 85 15 100 30 05/18/20 19:12 100 Bi-Pap 30 05/18/20 17:34 131/46 05/18/20 16:40 46 22 100 30 05/18/20 16:00 30 05/18/20 16:00 85 05/18/20 16:00 98.4 77 12 131/46 (74) 100 05/18/20 16:00 Bi-pap 05/18/20 15:21 43 27 100 30 Intake and Output 05/18/20 05/19/20 19:00 07:00 Intake Total 705 ml 665 ml Output Total 800 ml Balance -95 ml 665 ml Intake Free Water 225 ml 225 ml Tube Feeding 480 ml 440 ml Output Urine Total 800 ml # Voids 4 # Bowel Movements 2 2 Laboratory Tests 05/19/20 04:33: White Blood Count 9.1, Red Blood Count 4.49L, Hemoglobin 14.5, Hematocrit 46.2, Mean Corpuscular Volume 103H, Mean Corpuscular Hemoglobin 32.3H, Mean Corpuscular Hemoglobin Concent 31.4L, Red Cell Distribution Width 14.1, Platelet Count 162, Mean Platelet Volume 9.9, Neutrophils (%) (Auto) 62.8, Lymphocytes (%) (Auto) 21.9, Monocytes (%) (Auto) 13.3H, Eosinophils (%) (Auto) 1.2, Basophils (%) (Auto) 0.8, Sodium Level 145, Potassium Level 3.7, Chloride Level 104, Carbon Dioxide Level 38H, Blood Urea Nitrogen 39H, Creatinine 0.8, Estimat Glomerular Filtration Rate > 60, Glucose Level 119H, Calcium Level 9.4, Pro-B-Type Natriuretic Peptide 1027H 05/19/20 09:10: Arterial Blood pH 7.305L, Arterial Blood Partial Pressure CO2 73.4*H, Arterial Blood Partial Pressure O2 66.2L, Arterial Blood HCO3 35.7H, Arterial Blood Oxygen Saturation 91.1L, Arterial Blood Base Excess 6.8H, Apollo Test Positive Height (Feet): 5 Height (Inches): 6.00 Weight (Pounds): 137 Objective General Appearance: WD/WN, alert, confused EENT: normal ENT inspection Neck: normal alignment Cardiovascular: normal rate Respiratory/Chest: chest wall non-tender, lungs clear, normal breath sounds Abdomen: normal bowel sounds, non tender, soft, no organomegaly Edema: no edema noted Arm (L), no edema noted Arm (R) Neurologic: alert, disoriented Assessment/Plan Problem List: (1) Seizure ICD Codes: R56.9 - Unspecified convulsions SNOMED: 18403371 (2) Dysphagia ICD Codes: R13.10 - Dysphagia, unspecified SNOMED: 59836840, 105979513 (3) UTI (urinary tract infection) ICD Codes: N39.0 - Urinary tract infection, site not specified SNOMED: 89704430 (4) Elevated troponin I level ICD Codes: R77.8 - Other specified abnormalities of plasma proteins SNOMED: 933701523 (5) AMS (altered mental status) ICD Codes: R41.82 - Altered mental status, unspecified SNOMED: 281838651 (6) NSTEMI (non-ST elevated myocardial infarction) ICD Codes: I21.4 - Non-ST elevation (NSTEMI) myocardial infarction SNOMED: 65707188 Status: stable Assessment/Plan: bipap monitor abg- ordered for this am wean o2/bipap as able tube feeds monitor residual monitor for vomiting decrease sz iv abx diuresis cxr reviewed- improving monitor labs anxiolytics as needed o2 resp rx dvt/stress ulcer prophylaxis. Jorge Kee MD May 19, 2020 15:11
[2020-05-19 16:00] VITALS: BP 108/49
--- NOTE | 2020-05-19 17:07 | Surgery Progress Note ---
Surgery Progress Note Subjective Additional Comments afebrile HD stable labs improved exam stable no n/v Objective Last 24 Hour Vital Signs Date Time Temp Pulse Resp B/P (MAP) Pulse Ox O2 Delivery O2 Flow Rate FiO2 05/19/20 15:19 71 16 98 30 05/19/20 13:10 69 18 98 30 05/19/20 12:44 118/66 05/19/20 12:00 97.9 72 22 118/66 (83) 100 05/19/20 12:00 Bi-pap 05/19/20 12:00 81 05/19/20 10:55 74 22 98 30 05/19/20 10:00 30 05/19/20 09:54 64 19 97 30 05/19/20 09:23 82 20 100 Venturi Mask 8.0 35 05/19/20 08:22 76 125/82 05/19/20 08:22 76 125/82 05/19/20 08:10 8.0 35 05/19/20 08:00 30 05/19/20 08:00 77 05/19/20 08:00 97.9 80 16 128/67 (87) 100 05/19/20 08:00 Bi-pap 05/19/20 06:47 76 18 97 30 05/19/20 06:47 98 Bi-Pap 30 05/19/20 05:23 125/82 05/19/20 05:01 52 26 98 30 05/19/20 04:00 Bi-pap 05/19/20 04:00 97.7 69 16 120/74 (89) 100 05/19/20 04:00 30 05/19/20 03:33 86 05/19/20 03:12 84 25 100 30 05/19/20 01:12 78 19 100 30 05/19/20 00:00 30 05/19/20 00:00 Bi-pap 05/19/20 00:00 97.7 85 12 107/61 (76) 100 05/18/20 23:29 90 05/18/20 22:41 66 20 100 30 05/18/20 20:46 82 21 100 30 05/18/20 20:16 79 134/64 05/18/20 20:00 30 05/18/20 20:00 Bi-pap 05/18/20 20:00 98.1 79 12 134/64 (87) 100 05/18/20 20:00 81 05/18/20 19:13 85 15 100 30 05/18/20 19:12 100 Bi-Pap 30 05/18/20 17:34 131/46 I&O Intake and Output 05/18/20 05/19/20 19:00 07:00 Intake Total 705 ml 665 ml Output Total 800 ml Balance -95 ml 665 ml Intake Free Water 225 ml 225 ml Tube Feeding 480 ml 440 ml Output Urine Total 800 ml # Voids 4 # Bowel Movements 2 2 Dressing: saturated Cardiovascular: RSR Respiratory: decreased breath sounds Abdomen: non-tender, present bowel sounds Extremities: no edema, no tenderness, no cyanosis Laboratory Tests Test 05/19/20 04:33 05/19/20 09:10 White Blood Count 9.1 K/UL (4.8-10.8) Red Blood Count 4.49 M/UL (4.70-6.10) L Hemoglobin 14.5 G/DL (14.2-18.0) Hematocrit 46.2 % (42.0-52.0) Mean Corpuscular Volume 103 FL (80-99) H Mean Corpuscular Hemoglobin 32.3 PG (27.0-31.0) H Mean Corpuscular Hemoglobin Concent 31.4 G/DL (32.0-36.0) L Red Cell Distribution Width 14.1 % (11.6-14.8) Platelet Count 162 K/UL (150-450) Mean Platelet Volume 9.9 FL (6.5-10.1) Neutrophils (%) (Auto) 62.8 % (45.0-75.0) Lymphocytes (%) (Auto) 21.9 % (20.0-45.0) Monocytes (%) (Auto) 13.3 % (1.0-10.0) H Eosinophils (%) (Auto) 1.2 % (0.0-3.0) Basophils (%) (Auto) 0.8 % (0.0-2.0) Sodium Level 145 MMOL/L (136-145) Potassium Level 3.7 MMOL/L (3.5-5.1) Chloride Level 104 MMOL/L (98-107) Carbon Dioxide Level 38 MMOL/L (21-32) H Blood Urea Nitrogen 39 mg/dL (7-18) H Creatinine 0.8 MG/DL (0.55-1.30) Estimat Glomerular Filtration Rate > 60 mL/min (>60) Glucose Level 119 MG/DL (74-106) H Calcium Level 9.4 MG/DL (8.5-10.1) Pro-B-Type Natriuretic Peptide 1027 pg/mL (0-125) H Arterial Blood pH 7.305 (7.350-7.450) Arterial Blood Partial Pressure CO2 73.4 mmHg (35.0-45.0) *H Arterial Blood Partial Pressure O2 66.2 mmHg (75.0-100.0) L Arterial Blood HCO3 35.7 mmol/L (22.0-26.0) H Arterial Blood Oxygen Saturation 91.1 % (95-100) L Arterial Blood Base Excess 6.8 (-2-2) H Apollo Test Positive Plan Problems: (1) Deep tissue injury Assessment & Plan: Patient identified to have bilateral heel concerns for potential developing DTI. Soft boggy no fluid collection no acute injury at this time. Patient identified to have sacral erythema and skin changes with concerns for developing deep tissue injury as well. No open areas. No fluid collections no fluctuance no drainage. On the scrotum patient is identified to have edema erythema and some abrasion along with incontinence associated dermatitis in the area. Patient identified to have abrasion to the nasal brim secondary to a facemask placement. Patient is chronically ill elderly and malnourished. Wound evaluated and care plan initiated. Treatment plan Apply skin protectant to the nasal bridge followed by foam dressing prior to facemask placement. Patient currently requires oxygen supplementation and t herefore important to ensure receiving such along with protection of underlying epidermis. Apply OPTi foam to heels change every 3 days offload pressure with pillows Apply OPTi foam to sacral area monitor for incontinence change accordingly every 3 days and as needed saturation. Soft towel under scrotum. Continue with respiratory supportive care Turn every 2 hours Offload pressure with pillows Continue tube feeds nutritional optimization we will follow with recommendations thank you for let me participate patient's care (2) Dementia with behavioral problem (3) UTI (urinary tract infection) (4) Elevated troponin I level (5) AMS (altered mental status) (6) Dysphagia Assessment & Plan: DAILY ESTIMATED NEEDS: Needs based on Pulmonary, cardiac, 62kg 25-30 kcals/kg 0060-9832 total kcals 1-1.5 g protein/kg 62-93 g total protein 25-30 mL/kg 1174-5924 total fluid mLs NUTRITION DIAGNOSIS: Swallowing difficulty r/t dysphagia as evidenced by pt is PEG dep, currently on continuous BIPAP. CURRENT TF: Glucerna 1.5 @ 40ml/hr ENTERAL NUTRITION RECOMMENDATIONS: Glucerna 1.5 goal of 45ml/hr x 24 hrs to provide 1080ml, 1620 kcal, 89g pro, 820ml free water * Maintain carb controlled TF of Glucerna 1.5 while CO2 critically elevated * As medically appropriate, increase goal rate to 45ml/hr x 24 hrs to better meet nutritional needs. * HOB over 30 degrees/ water flush per MD ADDITIONAL RECOMMENDATIONS: 1) Monitor BIPAP usage, safety of GT feeds -> continuous BIPAP at this time 2) Lytes daily, replete as needed Current TF Glucerna 1.5 @goal of 40ml/hr provides 2419mg K/day 3) Calibrated bed scale wts (Bed scale shows uptrend: 65kg-> 71kg) 4) Rec HgA1C for eval of BG control 5) F/up w/ WC eval: Continue MVI and Vit C (7) Seizure (8) NSTEMI (non-ST elevated myocardial infarction) Benitez Mayorga May 19, 2020 17:07
[2020-05-19 20:00] VITALS: BP 104/63
[2020-05-19] MEDS: Tamsulosin 0.4mg cap ORAL SCH (21:23)
[2020-05-20] VITALS: BP 141/75
--- NOTE | 2020-05-20 01:45 | Cardiology Progress Note ---
Subjective DATE OF SERVICE: May 19, 2020 Still on bipap. O2 requirements decreasing; acid-base parameters slightly better. 7.30/73/66 (05/16/20) Troponin has normalized proBNP has decreased to 1027 today. CXR (05/19) low lung volumes without interval change BP now well controlled. Objective Last 24 Hour Vital Signs Date Time Temp Pulse Resp B/P (MAP) Pulse Ox O2 Delivery O2 Flow Rate FiO2 05/20/20 01:30 27 21 97 30 05/20/20 00:00 98.4 59 12 141/75 (97) 98 05/20/20 00:00 Bi-pap 05/19/20 23:30 43 21 94 30 05/19/20 21:30 40 24 99 30 05/19/20 20:58 53 104/63 05/19/20 20:00 Bi-pap 05/19/20 20:00 30 05/19/20 20:00 98.4 53 12 104/63 (77) 98 05/19/20 20:00 76 05/19/20 19:58 58 23 97 30 05/19/20 19:56 97 Bi-Pap 30 05/19/20 17:21 110/49 05/19/20 17:05 76 18 97 30 05/19/20 16:00 88 05/19/20 16:00 30 05/19/20 16:00 Bi-pap 05/19/20 16:00 98.2 76 22 108/49 (68) 100 05/19/20 15:19 71 16 98 30 05/19/20 13:10 69 18 98 30 05/19/20 12:44 118/66 05/19/20 12:00 97.9 72 22 118/66 (83) 100 05/19/20 12:00 Bi-pap 05/19/20 12:00 81 05/19/20 10:55 74 22 98 30 05/19/20 10:00 30 05/19/20 09:54 64 19 97 30 05/19/20 09:23 82 20 100 Venturi Mask 8.0 35 05/19/20 08:22 76 125/82 05/19/20 08:22 76 125/82 05/19/20 08:10 8.0 35 05/19/20 08:00 30 05/19/20 08:00 77 05/19/20 08:00 97.9 80 16 128/67 (87) 100 05/19/20 08:00 Bi-pap 05/19/20 06:47 76 18 97 30 05/19/20 06:47 98 Bi-Pap 30 05/19/20 05:23 125/82 05/19/20 05:01 52 26 98 30 05/19/20 04:00 Bi-pap 05/19/20 04:00 97.7 69 16 120/74 (89) 100 05/19/20 04:00 30 05/19/20 03:33 86 05/19/20 03:12 84 25 100 30 ROS: unchanged from my evaluation of 05/06/20 RHYTHM: NSR LUNGS: diminished breath sounds CARDIAC: normal rate, regular rhythm, normal S1 and S2 ABDOMEN: G-Tube intact EXTREMITIES: non-pitting, No edema Laboratory Tests Test 05/19/20 04:33 05/19/20 09:10 White Blood Count 9.1 K/UL (4.8-10.8) Red Blood Count 4.49 M/UL (4.70-6.10) L Hemoglobin 14.5 G/DL (14.2-18.0) Hematocrit 46.2 % (42.0-52.0) Mean Corpuscular Volume 103 FL (80-99) H Mean Corpuscular Hemoglobin 32.3 PG (27.0-31.0) H Mean Corpuscular Hemoglobin Concent 31.4 G/DL (32.0-36.0) L Red Cell Distribution Width 14.1 % (11.6-14.8) Platelet Count 162 K/UL (150-450) Mean Platelet Volume 9.9 FL (6.5-10.1) Neutrophils (%) (Auto) 62.8 % (45.0-75.0) Lymphocytes (%) (Auto) 21.9 % (20.0-45.0) Monocytes (%) (Auto) 13.3 % (1.0-10.0) H Eosinophils (%) (Auto) 1.2 % (0.0-3.0) Basophils (%) (Auto) 0.8 % (0.0-2.0) Sodium Level 145 MMOL/L (136-145) Potassium Level 3.7 MMOL/L (3.5-5.1) Chloride Level 104 MMOL/L (98-107) Carbon Dioxide Level 38 MMOL/L (21-32) H Blood Urea Nitrogen 39 mg/dL (7-18) H Creatinine 0.8 MG/DL (0.55-1.30) Estimat Glomerular Filtration Rate > 60 mL/min (>60) Glucose Level 119 MG/DL (74-106) H Calcium Level 9.4 MG/DL (8.5-10.1) Pro-B-Type Natriuretic Peptide 1027 pg/mL (0-125) H Arterial Blood pH 7.305 (7.350-7.450) Arterial Blood Partial Pressure CO2 73.4 mmHg (35.0-45.0) *H Arterial Blood Partial Pressure O2 66.2 mmHg (75.0-100.0) L Arterial Blood HCO3 35.7 mmol/L (22.0-26.0) H Arterial Blood Oxygen Saturation 91.1 % (95-100) L Arterial Blood Base Excess 6.8 (-2-2) H Apollo Test Positive Assessment/Plan Assessment/Plan E.coli UTI Sepsis Metabolic and toxic encephalopathies Cerebrovascular disease with dementia Acute myocardial ischemia and possible NSTEMI Hypovolemia and dehydration corrected Hypertension/HHD Ac/chronic respiratory acidosis - worse today Respiratory failure Ac diastolic CHF improving; BNP continues steady decline Metabolic acidosis Pleural effusions Continue anti-anginal regimen; titrate meds for BP control. Nitrates added. Antimicrobials Advancing diuresis with loop diuretic and acetazolamide. Monitor acid-base parameters. Bipap support with taper Real Magana MD May 20, 2020 01:45
[2020-05-20 04:00] VITALS: BP 127/57
[2020-05-20] MEDS: Nitroglycerin 2% oint pkt TOPIC SCH ×3 (05:31→17:21)
--- NOTE | 2020-05-20 07:51 | Pulmonology Progress Note ---
Subjective ROS Limited/Unobtainable: Yes Constitutional: Denies: fever Allergies: Coded Allergies: PENICILLINS (Unverified Allergy, Unknown, 08/11/19) All Systems: reviewed and negative except above Subjective care noted on BIPAP chronically no distress acid base noted- worse imaging noted Objective Last 24 Hour Vital Signs Date Time Temp Pulse Resp B/P (MAP) Pulse Ox O2 Delivery O2 Flow Rate FiO2 05/20/20 07:10 51 29 96 30 05/20/20 07:09 96 Bi-Pap 30 05/20/20 05:31 127/57 05/20/20 05:27 57 20 98 30 05/20/20 04:00 30 05/20/20 04:00 97.9 77 14 127/57 (80) 99 05/20/20 04:00 Bi-pap 05/20/20 04:00 89 05/20/20 03:30 88 13 100 30 05/20/20 01:30 27 21 97 30 05/20/20 00:00 98.4 59 12 141/75 (97) 98 05/20/20 00:00 81 05/20/20 00:00 Bi-pap 05/19/20 23:30 43 21 94 30 05/19/20 21:30 40 24 99 30 05/19/20 20:58 53 104/63 05/19/20 20:00 Bi-pap 05/19/20 20:00 30 05/19/20 20:00 98.4 53 12 104/63 (77) 98 05/19/20 20:00 76 05/19/20 19:58 58 23 97 30 05/19/20 19:56 97 Bi-Pap 30 05/19/20 17:21 110/49 05/19/20 17:05 76 18 97 30 05/19/20 16:00 88 05/19/20 16:00 30 05/19/20 16:00 Bi-pap 05/19/20 16:00 98.2 76 22 108/49 (68) 100 05/19/20 15:19 71 16 98 30 05/19/20 13:10 69 18 98 30 05/19/20 12:44 118/66 05/19/20 12:00 97.9 72 22 118/66 (83) 100 05/19/20 12:00 Bi-pap 05/19/20 12:00 81 05/19/20 10:55 74 22 98 30 05/19/20 10:00 30 05/19/20 09:54 64 19 97 30 05/19/20 09:23 82 20 100 Venturi Mask 8.0 35 05/19/20 08:22 76 125/82 05/19/20 08:22 76 125/82 05/19/20 08:10 8.0 35 05/19/20 08:00 30 05/19/20 08:00 77 05/19/20 08:00 97.9 80 16 128/67 (87) 100 05/19/20 08:00 Bi-pap Intake and Output 05/19/20 05/20/20 19:00 07:00 Intake Total 705 ml 590 ml Output Total 800 ml 500 ml Balance -95 ml 90 ml Intake Free Water 225 ml 150 ml Tube Feeding 480 ml 440 ml Output Urine Total 800 ml 500 ml # Bowel Movements 3 Objective WDWN NAD reduced breath sounds bilaterally without rhonchi [id number] without MRG NABS nontender no CC mild edema nonfocal on BIPAP reduced LOC Laboratory Tests 05/19/20 09:10: Arterial Blood pH 7.305L, Arterial Blood Partial Pressure CO2 73.4*H, Arterial Blood Partial Pressure O2 66.2L, Arterial Blood HCO3 35.7H, Arterial Blood Oxygen Saturation 91.1L, Arterial Blood Base Excess 6.8H, Apollo Test Positive Current Medications Medications (Trade) Dose Ordered Sig/Mayela Route PRN Reason Start Time Stop Time Status Last Admin Dose Admin Acetaminophen (Tylenol) 650 mg Q4H PRN GT back pain 05/06/20 15:15 06/05/20 15:14 05/16/20 07:27 Acetazolamide (Diamox) 250 mg TWICE A DAY GT 05/13/20 09:00 06/12/20 08:59 05/19/20 17:20 Amlodipine Besylate (Norvasc) 5 mg DAILY GT 05/07/20 09:00 06/06/20 08:59 05/19/20 08:22 Ascorbic Acid (Vitamin C) 500 mg DAILY GT 05/07/20 09:00 06/06/20 08:59 05/19/20 08:22 Aspirin (ASA) 81 mg DAILY GT 05/07/20 09:00 06/21/20 08:59 05/19/20 08:22 Carvedilol (Coreg) 3.125 mg EVERY 12 HOURS GT 05/07/20 09:00 06/06/20 08:59 05/19/20 08:22 Clonidine HCl (Catapres Tab) 0.1 mg Q4H PRN ORAL SBP >160 05/08/20 22:15 08/06/20 22:14 Docusate Sodium (Colace) 200 mg BID GT 05/06/20 18:00 06/05/20 17:59 05/19/20 17:20 Furosemide (Lasix) 40 mg BID IV 05/18/20 18:00 06/17/20 17:59 05/19/20 17:21 Heparin Sodium (Porcine) (Heparin 5000 units/ml) 5,000 units EVERY 12 HOURS SUBQ 05/08/20 09:00 06/22/20 08:59 05/19/20 21:24 Levetiracetam (Keppra) 250 mg DAILY GT 05/19/20 15:11 06/18/20 15:10 05/19/20 16:55 Multivitamins (Multivitamins W/ Minerals 15ml Liquid) 5 ml DAILY GT 05/07/20 09:00 06/06/20 08:59 05/19/20 08:21 Nitroglycerin (Nitro-Bid) 1 inch TID@0600,1200,1800 TOPIC 05/16/20 18:00 06/15/20 17:59 05/20/20 05:31 Potassium Chloride (K-Dur) 20 meq DAILY GT 05/13/20 09:00 08/11/20 08:59 05/19/20 08:22 Tamsulosin HCl (Flomax) 0.4 mg BEDTIME ORAL 05/06/20 21:00 06/05/20 20:59 05/19/20 21:23 Assessment/Plan Assessment/Plan ASSESSMENT: Pulmonary congestion, respiratory failure, hypoxemia dementia, G-tube, seizure disorder, congestive heart failure, COPD sepsis, and acute OK. acute on chronic CO2 retention PLAN: maintain oxygen and BIPAP repeat ABG noted. Breathing treatments and aspiration precautions. Monitor blood gases for change.keep negative. Maintain home meds and monitor with seizure medications. feeds and monitor residuals; DNR noted DVT prophylaxis unable to taper off BIPAP- would need trach and chronic vent support monitor lytes remains guarded d/w primary impression, plan, and exam edited and reviewed in detail care discussed with Attila Yuan MD May 20, 2020 07:51
[2020-05-20] MEDS: levETIRAcetam 500mg/5ml Liquid GT SCH (08:43)
[2020-05-20] MEDS: Docusate 100mg/10ml Liq GT SCH ×2 (08:43→17:22)
[2020-05-20] MEDS: Ascorbic Acid 500mg tab GT SCH (08:43)
[2020-05-20] MEDS: Multivitamins W/Minerals 15 ML UDC GT SCH (08:44)
[2020-05-20] MEDS: Aspirin Baby 81mg GT SCH (08:44)
[2020-05-20 08:46] VITALS: BP 127/67
[2020-05-20] MEDS: Heparin 5000 units/ml inj SUBQ SCH ×2 (08:46→20:17)
--- NOTE | 2020-05-20 12:21 | Surgery Progress Note ---
Surgery Progress Note Subjective Additional Comments cont to require bipap ? trach discussed with pcp and pulm Objective Last 24 Hour Vital Signs Date Time Temp Pulse Resp B/P (MAP) Pulse Ox O2 Delivery O2 Flow Rate FiO2 05/20/20 11:07 70 16 99 30 05/20/20 09:15 50 17 100 30 05/20/20 08:46 97.9 70 18 127/67 (87) 05/20/20 08:44 70 127/57 05/20/20 08:43 70 127/65 05/20/20 08:00 30 05/20/20 08:00 Bi-pap 05/20/20 08:00 77 05/20/20 07:10 51 29 96 30 05/20/20 07:09 96 Bi-Pap 30 05/20/20 05:31 127/57 05/20/20 05:27 57 20 98 30 05/20/20 04:00 30 05/20/20 04:00 97.9 77 14 127/57 (80) 99 05/20/20 04:00 Bi-pap 05/20/20 04:00 89 05/20/20 03:30 88 13 100 30 05/20/20 01:30 27 21 97 30 05/20/20 00:00 98.4 59 12 141/75 (97) 98 05/20/20 00:00 81 05/20/20 00:00 Bi-pap 05/19/20 23:30 43 21 94 30 05/19/20 21:30 40 24 99 30 05/19/20 20:58 53 104/63 05/19/20 20:00 Bi-pap 05/19/20 20:00 30 05/19/20 20:00 98.4 53 12 104/63 (77) 98 05/19/20 20:00 76 05/19/20 19:58 58 23 97 30 05/19/20 19:56 97 Bi-Pap 30 05/19/20 17:21 110/49 05/19/20 17:05 76 18 97 30 05/19/20 16:00 88 05/19/20 16:00 30 05/19/20 16:00 Bi-pap 05/19/20 16:00 98.2 76 22 108/49 (68) 100 05/19/20 15:19 71 16 98 30 11/9/20 13:10 69 18 98 30 05/19/20 12:44 118/66 I&O Intake and Output 05/19/20 05/20/20 19:00 07:00 Intake Total 705 ml 590 ml Output Total 800 ml 500 ml Balance -95 ml 90 ml Intake Free Water 225 ml 150 ml Tube Feeding 480 ml 440 ml Output Urine Total 800 ml 500 ml # Bowel Movements 3 Cardiovascular: RSR Respiratory: decreased breath sounds Abdomen: non-tender, present bowel sounds Extremities: no edema, no tenderness, no cyanosis Plan Problems: (1) Deep tissue injury Assessment & Plan: Patient identified to have bilateral heel concerns for potential developing DTI. Soft boggy no fluid collection no acute injury at this time. Patient identified to have sacral erythema and skin changes with concerns for developing deep tissue injury as well. No open areas. No fluid collections no fluctuance no drainage. On the scrotum patient is identified to have edema erythema and some abrasion along with incontinence associated dermatitis in the area. Patient identified to have abrasion to the nasal brim secondary to a facemask placement. Patient is chronically ill elderly and malnourished. Wound evaluated and care plan initiated. Treatment plan Apply skin protectant to the nasal bridge followed by foam dressing prior to facemask placement. Patient currently requires oxygen supplementation and therefore important to ensure receiving such along with protection of underlying epidermis. Apply OPTi foam to heels change every 3 days offload pressure with pillows Apply OPTi foam to sacral area monitor for incontinence change accordingly every 3 days and as needed saturation. Soft towel under scrotum. Continue with respiratory supportive care Turn every 2 hours Offload pressure with pillows Continue tube feeds nutritional optimization we will follow with recommendations thank you for let me participate patient's care (2) Dementia with behavioral problem (3) UTI (urinary tract infection) (4) Elevated troponin I level (5) AMS (altered mental status) (6) Dysphagia Assessment & Plan: DAILY ESTIMATED NEEDS: Needs based on Pulmonary, cardiac, 62kg 25-30 kcals/kg 5153-6031 total kcals 1-1.5 g protein/kg 62-93 g total protein 25-30 mL/kg 3704-5894 total fluid mLs NUTRITION DIAGNOSIS: Swallowing difficulty r/t dysphagia as evidenced by pt is PEG dep, currently on continuous BIPAP. CURRENT TF: Glucerna 1.5 @ 40ml/hr ENTERAL NUTRITION RECOMMENDATIONS: Glucerna 1.5 goal of 45ml/hr x 24 hrs to provide 1080ml, 1620 kcal, 89g pro, 820ml free water * Maintain carb controlled TF of Glucerna 1.5 while CO2 critically elevated * As medically appropriate, increase goal rate to 45ml/hr x 24 hrs to better meet nutritional needs. * HOB over 30 degrees/ water flush per MD ADDITIONAL RECOMMENDATIONS: 1) Monitor BIPAP usage, safety of GT feeds -> continuous BIPAP at this time 2) Lytes daily, replete as needed Current TF Glucerna 1.5 @goal of 40ml/hr provides 2419mg K/day 3) Calibrated bed scale wts (Bed scale shows uptrend: 65kg-> 71kg) 4) Rec HgA1C for eval of BG control 5) F/up w/ WC eval: Continue MVI and Vit C (7) Seizure (8) NSTEMI (non-ST elevated myocardial infarction) (9) Respiratory insufficiency Assessment & Plan: constant required bipap ? trach dnr/dni discussed with pcp and Benitez Jefferson May 20, 2020 12:21
[2020-05-20 12:40] VITALS: BP 124/60
--- NOTE | 2020-05-20 14:21 | General Progress Note ---
Subjective ROS Limited/Unobtainable: No Constitutional: Reports: malaise, weakness HEENT: Reports: no symptoms Cardiovascular: Reports: no symptoms Respiratory: Reports: no symptoms - Gastrointestinal/Abdominal: Reports: difficulty swallowing Genitourinary: Reports: no symptoms Neurologic/Psychiatric: Reports: pre-existing deficit, seizure Endocrine: Reports: no symptoms Hematologic/Lymphatic: Reports: anemia Allergies: Coded Allergies: PENICILLINS (Unverified Allergy, Unknown, 08/11/19) Subjective on bipap. resting.difficulty weaning. poorly responsive and confused. on tube feeds. cxr with left sided opacity. Objective Last 24 Hour Vital Signs Date Time Temp Pulse Resp B/P (MAP) Pulse Ox O2 Delivery O2 Flow Rate FiO2 05/20/20 13:38 64 24 98 30 05/20/20 13:03 124/60 05/20/20 12:40 98.1 56 18 124/60 (81) 05/20/20 12:40 Bi-pap 05/20/20 11:50 78 05/20/20 11:07 70 16 99 30 05/20/20 09:15 50 17 100 30 05/20/20 08:46 97.9 70 18 127/67 (87) 05/20/20 08:44 70 127/57 05/20/20 08:43 70 127/65 05/20/20 08:00 30 05/20/20 08:00 Bi-pap 05/20/20 08:00 77 05/20/20 07:10 51 29 96 30 05/20/20 07:09 96 Bi-Pap 30 05/20/20 05:31 127/57 05/20/20 05:27 57 20 98 30 05/20/20 04:00 30 05/20/20 04:00 97.9 77 14 127/57 (80) 99 05/20/20 04:00 Bi-pap 05/20/20 04:00 89 05/20/20 03:30 88 13 100 30 05/20/20 01:30 27 21 97 30 05/20/20 00:00 98.4 59 12 141/75 (97) 98 05/20/20 00:00 81 05/20/20 00:00 Bi-pap 05/19/20 23:30 43 21 94 30 05/19/20 21:30 40 24 99 30 05/19/20 20:58 53 104/63 05/19/20 20:00 Bi-pap 05/19/20 20:00 30 05/19/20 20:00 98.4 53 12 104/63 (77) 98 05/19/20 20:00 76 05/19/20 19:58 58 23 97 30 05/19/20 19:56 97 Bi-Pap 30 05/19/20 17:21 110/49 05/19/20 17:05 76 18 97 30 05/19/20 16:00 88 05/19/20 16:00 30 05/19/20 16:00 Bi-pap 05/19/20 16:00 98.2 76 22 108/49 (68) 100 05/19/20 15:19 71 16 98 30 Intake and Output 05/19/20 05/20/20 19:00 07:00 Intake Total 705 ml 590 ml Output Total 800 ml 500 ml Balance -95 ml 90 ml Intake Free Water 225 ml 150 ml Tube Feeding 480 ml 440 ml Output Urine Total 800 ml 500 ml # Bowel Movements 3 Height (Feet): 5 Height (Inches): 6.00 Weight (Pounds): 137 Objective General Appearance: WD/WN, alert, confused EENT: normal ENT inspection Neck: normal alignment Cardiovascular: normal rate Respiratory/Chest: chest wall non-tender, lungs clear, normal breath sounds Abdomen: normal bowel sounds, non tender, soft, no organomegaly Edema: no edema noted Arm (L), no edema noted Arm (R) Neurologic: alert, disoriented Assessment/Plan Problem List: (1) Seizure ICD Codes: R56.9 - Unspecified convulsions SNOMED: 97058963 (2) Dysphagia ICD Codes: R13.10 - Dysphagia, unspecified SNOMED: 98825211, 812272550 (3) UTI (urinary tract infection) ICD Codes: N39.0 - Urinary tract infection, site not specified SNOMED: 71099934 (4) Elevated troponin I level ICD Codes: R77.8 - Other specified abnormalities of plasma proteins SNOMED: 179730782 (5) AMS (altered mental status) ICD Codes: R41.82 - Altered mental status, unspecified SNOMED: 600121776 (6) NSTEMI (non-ST elevated myocardial infarction) ICD Codes: I21.4 - Non-ST elevation (NSTEMI) myocardial infarction SNOMED: 46310970 Status: stable Assessment/Plan: bipap monitor abg- ordered for this am wean o2/bipap as able added iv steroids tube feeds monitor residual monitor for vomiting decrease sz iv abx diuresis cxr reviewed- stable monitor labs anxiolytics as needed o2 resp rx dvt/stress ulcer prophylaxis. message left with on to discuss trach- doubt family wants Jorge Kee MD May 20, 2020 14:21
--- NOTE | 2020-05-20 14:26 | Infectious Diseases Prog Note ---
Assessment/Plan Assessment/Plan antibiotics : none A 1. Urinary tract infection with E. coli s/p rx 2. MRSA nasal colonization. 3. CHF. 4. COPD. 5. Seizures. 6. Dementia. 7. He is negative for COVID-19. P 1. continue off antibiotics Subjective ROS Limited/Unobtainable: Yes Allergies: Coded Allergies: PENICILLINS (Unverified Allergy, Unknown, 08/11/19) Objective Last 24 Hour Vital Signs Date Time Temp Pulse Resp B/P (MAP) Pulse Ox O2 Delivery O2 Flow Rate FiO2 05/20/20 13:38 64 24 98 30 05/20/20 13:03 124/60 05/20/20 12:40 98.1 56 18 124/60 (81) 05/20/20 12:40 Bi-pap 05/20/20 11:50 78 05/20/20 11:07 70 16 99 30 05/20/20 09:15 50 17 100 30 05/20/20 08:46 97.9 70 18 127/67 (87) 05/20/20 08:44 70 127/57 05/20/20 08:43 70 127/65 05/20/20 08:00 30 05/20/20 08:00 Bi-pap 05/20/20 08:00 77 05/20/20 07:10 51 29 96 30 05/20/20 07:09 96 Bi-Pap 30 05/20/20 05:31 127/57 05/20/20 05:27 57 20 98 30 05/20/20 04:00 30 05/20/20 04:00 97.9 77 14 127/57 (80) 99 05/20/20 04:00 Bi-pap 05/20/20 04:00 89 05/20/20 03:30 88 13 100 30 05/20/20 01:30 27 21 97 30 05/20/20 00:00 98.4 59 12 141/75 (97) 98 05/20/20 00:00 81 05/20/20 00:00 Bi-pap 05/19/20 23:30 43 21 94 30 05/19/20 21:30 40 24 99 30 05/19/20 20:58 53 104/63 05/19/20 20:00 Bi-pap 05/19/20 20:00 30 05/19/20 20:00 98.4 53 12 104/63 (77) 98 05/19/20 20:00 76 05/19/20 19:58 58 23 97 30 05/19/20 19:56 97 Bi-Pap 30 05/19/20 17:21 110/49 05/19/20 17:05 76 18 97 30 05/19/20 16:00 88 05/19/20 16:00 30 05/19/20 16:00 Bi-pap 05/19/20 16:00 98.2 76 22 108/49 (68) 100 05/19/20 15:19 71 16 98 30 Height (Feet): 5 Height (Inches): 6.00 Weight (Pounds): 137 HEENT: other - on bipap Respiratory/Chest: lungs clear Cardiovascular: normal rate, regular rhythm, no gallop/murmur Abdomen: soft, non tender, other - GT Extremities: no edema Current Medications Medications (Trade) Dose Ordered Sig/Mayela Route PRN Reason Start Time Stop Time Status Last Admin Dose Admin Acetaminophen (Tylenol) 650 mg Q4H PRN GT back pain 05/06/20 15:15 06/05/20 15:14 05/16/20 07:27 Acetazolamide (Diamox) 250 mg TWICE A DAY GT 05/13/20 09:00 06/12/20 08:59 05/20/20 08:43 Amlodipine Besylate (Norvasc) 5 mg DAILY GT 05/07/20 09:00 06/06/20 08:59 05/20/20 08:44 Ascorbic Acid (Vitamin C) 500 mg DAILY GT 05/07/20 09:00 06/06/20 08:59 05/20/20 08:43 Aspirin (ASA) 81 mg DAILY GT 05/07/20 09:00 06/21/20 08:59 05/20/20 08:44 Carvedilol (Coreg) 3.125 mg EVERY 12 HOURS GT 05/07/20 09:00 06/06/20 08:59 05/20/20 08:43 Clonidine HCl (Catapres Tab) 0.1 mg Q4H PRN ORAL SBP >160 05/08/20 22:15 08/06/20 22:14 Docusate Sodium (Colace) 200 mg BID GT 05/06/20 18:00 06/05/20 17:59 05/20/20 08:43 Furosemide (Lasix) 40 mg BID IV 05/18/20 18:00 06/17/20 17:59 05/20/20 08:44 Heparin Sodium (Porcine) (Heparin 5000 units/ml) 5,000 units EVERY 12 HOURS SUBQ 05/08/20 09:00 06/22/20 08:59 05/20/20 08:46 Levetiracetam (Keppra) 250 mg DAILY GT 05/19/20 15:11 06/18/20 15:10 05/20/20 08:43 Methylprednisolone Sodium Succinate (Solu-MEDROL) 40 mg EVERY 8 HOURS IVP 05/20/20 14:15 08/18/20 14:14 Multivitamins (Multivitamins W/ Minerals 15ml Liquid) 5 ml DAILY GT 05/07/20 09:00 06/06/20 08:59 05/20/20 08:44 Nitroglycerin (Nitro-Bid) 1 inch TID@0600,1200,1800 TOPIC 05/16/20 18:00 06/15/20 17:59 05/20/20 13:03 Potassium Chloride (K-Dur) 20 meq DAILY GT 05/13/20 09:00 08/11/20 08:59 05/20/20 08:42 Tamsulosin HCl (Flomax) 0.4 mg BEDTIME ORAL 05/06/20 21:00 06/05/20 20:59 05/19/20 21:23 Josué Light MD May 20, 2020 14:26
[2020-05-20 16:19] VITALS: BP 130/67
[2020-05-20] MEDS: Solu-MEDROL 40mg Inj IVP SCH ×2 (16:31→21:40)
[2020-05-20 20:00] VITALS: BP 128/61
[2020-05-20] MEDS: Tamsulosin 0.4mg cap ORAL SCH (20:16)
[2020-05-21] VITALS: BP 132/69
--- NOTE | 2020-05-21 01:25 | Cardiology Progress Note ---
Subjective DATE OF SERVICE: May 30, 2020 Still on bipap. O2 requirements decreasing; acid-base parameters slightly better. 7.38/68/384 (05/16/20) proBNP has decreased to 1027 yesterday. CXR (05/19) low lung volumes without interval change BP now well controlled. Objective Last 24 Hour Vital Signs Date Time Temp Pulse Resp B/P (MAP) Pulse Ox O2 Delivery O2 Flow Rate FiO2 05/21/20 00:55 90 17 99 30 05/21/20 00:00 97.9 69 15 132/69 (90) 100 05/21/20 00:00 79 05/21/20 00:00 30 05/21/20 00:00 Bi-pap 05/20/20 22:45 65 14 98 30 05/20/20 21:03 74 20 99 30 05/20/20 20:16 73 128/61 05/20/20 20:00 97.8 62 16 128/61 (83) 99 05/20/20 20:00 Bi-pap 05/20/20 20:00 30 05/20/20 20:00 84 05/20/20 18:58 67 13 99 30 05/20/20 18:58 99 Bi-Pap 30 05/20/20 17:21 130/67 05/20/20 16:30 52 14 100 30 05/20/20 16:19 97.7 72 18 130/67 (88) 100 05/20/20 16:00 30 05/20/20 16:00 Bi-pap 05/20/20 15:48 80 05/20/20 13:50 100 Non-Rebreather 15.0 100 05/20/20 13:38 64 24 98 30 05/20/20 13:03 124/60 05/20/20 12:40 98.1 56 18 124/60 (81) 05/20/20 12:40 Bi-pap 05/20/20 12:00 30 05/20/20 11:50 78 05/20/20 11:07 70 16 99 30 05/20/20 09:15 50 17 100 30 05/20/20 08:46 97.9 70 18 127/67 (87) 05/20/20 08:44 70 127/57 05/20/20 08:43 70 127/65 05/20/20 08:00 30 05/20/20 08:00 Bi-pap 05/20/20 08:00 77 05/20/20 07:10 51 29 96 30 05/20/20 07:09 96 Bi-Pap 30 05/20/20 05:31 127/57 05/20/20 05:27 57 20 98 30 05/20/20 04:00 30 05/20/20 04:00 97.9 77 14 127/57 (80) 99 05/20/20 04:00 Bi-pap 05/20/20 04:00 89 05/20/20 03:30 88 13 100 30 05/20/20 01:30 27 21 97 30 ROS: unchanged from my evaluation of 05/06/20 RHYTHM: NSR LUNGS: diminished breath sounds CARDIAC: normal rate, regular rhythm, normal S1 and S2 ABDOMEN: G-Tube intact EXTREMITIES: non-pitting, No edema Laboratory Tests Test 05/20/20 15:03 Arterial Blood pH 7.380 (7.350-7.450) Arterial Blood Partial Pressure CO2 64.0 mmHg (35.0-45.0) *H Arterial Blood Partial Pressure O2 382.0 mmHg (75.0-100.0) H Arterial Blood HCO3 37.1 mmol/L (22.0-26.0) H Arterial Blood Oxygen Saturation 99.1 % (95-100) Arterial Blood Base Excess 9.7 (-2-2) *H Apollo Test Positive Assessment/Plan Assessment/Plan E.coli UTI Sepsis Metabolic and toxic encephalopathies Cerebrovascular disease with dementia Acute myocardial ischemia and possible NSTEMI Hypovolemia and dehydration corrected Hypertension/HHD Ac/chronic respiratory acidosis - worse today Respiratory failure Ac diastolic CHF improving; BNP continues steady decline Metabolic acidosis Pleural effusions Continue anti-anginal regimen; titrate meds for BP control. Nitrates continued. Antimicrobials Maintaining diuresis with loop diuretic and acetazolamide. Monitor acid-base parameters. Bipap support with taper Real Magana MD May 21, 2020 01:25
[2020-05-21 04:00] VITALS: BP 143/85
[2020-05-21 05:10] LABS: HEMATOCRIT 43.1 % (42.0-52.0); HEMOGLOBIN 13.3 G/DL (14.2-18.0); MEAN CORPUSCULAR VOLUME 105 FL (80-99); PLATELET COUNT 189 K/UL (150-450); RED BLOOD COUNT 4.12 M/UL (4.70-6.10); RED CELL DISTRIBUTION WIDTH 14.1 % (11.6-14.8); WHITE BLOOD COUNT 7.6 K/UL (4.8-10.8)
[2020-05-21] MEDS: Nitroglycerin 2% oint pkt TOPIC SCH ×3 (05:20→18:49)
[2020-05-21] MEDS: Solu-MEDROL 40mg Inj IVP SCH ×3 (05:20→22:13)
[2020-05-21 06:03] LABS: ALANINE AMINOTRANSFERASE 45 U/L (12-78); ALBUMIN 3.2 G/DL (3.4-5.0); ALBUMIN/GLOBULIN RATIO 0.6 (1.0-2.7); ALKALINE PHOSPHATASE 113 U/L (46-116); ANION GAP 4 mmol/L (5-15); ASPARTATE AMINO TRANSFERASE 31 U/L (15-37); BILIRUBIN,TOTAL 0.4 MG/DL (0.2-1.0); BLOOD UREA NITROGEN 53 mg/dL (7-18); CALCIUM 9.3 MG/DL (8.5-10.1); CARBON DIOXIDE 36 MMOL/L (21-32); CHLORIDE 108 MMOL/L (98-107); SODIUM 148 MMOL/L (136-145)
[2020-05-21 08:00] VITALS: BP 123/80
[2020-05-21] MEDS: Aspirin Baby 81mg GT SCH (09:37)
[2020-05-21] MEDS: Docusate 100mg/10ml Liq GT SCH ×2 (09:38→18:46)
[2020-05-21] MEDS: Ascorbic Acid 500mg tab GT SCH (09:39)
[2020-05-21] MEDS: Multivitamins W/Minerals 15 ML UDC GT SCH (09:40)
[2020-05-21] MEDS: levETIRAcetam 500mg/5ml Liquid GT SCH (09:41)
[2020-05-21] MEDS: Heparin 5000 units/ml inj SUBQ SCH ×2 (09:42→20:19)
[2020-05-21] MEDS ORDERED: Sterile Water Irrig 1000ml IRRIG ONE (10:14)
--- NOTE | 2020-05-21 10:57 | Infectious Diseases Prog Note ---
Assessment/Plan Assessment/Plan antibiotics : none A 1. Urinary tract infection with E. coli s/p rx 2. MRSA nasal colonization. 3. CHF. 4. COPD. 5. Seizures. 6. Dementia. 7. He is negative for COVID-19. P 1. continue off antibiotics Subjective ROS Limited/Unobtainable: Yes Allergies: Coded Allergies: PENICILLINS (Unverified Allergy, Unknown, 08/11/19) Objective Last 24 Hour Vital Signs Date Time Temp Pulse Resp B/P (MAP) Pulse Ox O2 Delivery O2 Flow Rate FiO2 05/21/20 09:55 92 123/80 05/21/20 09:39 92 123/80 05/21/20 08:58 89 13 98 30 05/21/20 08:00 97.7 92 20 123/80 (94) 99 05/21/20 08:00 89 05/21/20 08:00 30 05/21/20 07:16 100 Bi-Pap 30 05/21/20 07:16 77 14 100 30 05/21/20 05:20 143/85 05/21/20 04:49 91 16 99 30 05/21/20 04:00 97.7 85 16 143/85 (104) 99 05/21/20 04:00 89 05/21/20 04:00 30 05/21/20 04:00 Bi-pap 05/21/20 02:39 92 16 98 30 05/21/20 00:55 90 17 99 30 05/21/20 00:00 97.9 69 15 132/69 (90) 100 05/21/20 00:00 79 05/21/20 00:00 30 05/21/20 00:00 Bi-pap 05/20/20 22:45 65 14 98 30 05/20/20 21:03 74 20 99 30 05/20/20 20:16 73 128/61 05/20/20 20:00 97.8 62 16 128/61 (83) 99 05/20/20 20:00 Bi-pap 05/20/20 20:00 30 05/20/20 20:00 84 05/20/20 18:58 67 13 99 30 05/20/20 18:58 99 Bi-Pap 30 05/20/20 17:21 130/67 05/20/20 16:30 52 14 100 30 11/10/20 16:19 97.7 72 18 130/67 (88) 100 05/20/20 16:00 30 05/20/20 16:00 Bi-pap 05/20/20 15:48 80 05/20/20 13:50 100 Non-Rebreather 15.0 100 05/20/20 13:38 64 24 98 30 05/20/20 13:03 124/60 05/20/20 12:40 98.1 56 18 124/60 (81) 05/20/20 12:40 Bi-pap 05/20/20 12:00 30 05/20/20 11:50 78 05/20/20 11:07 70 16 99 30 Height (Feet): 5 Height (Inches): 6.00 Weight (Pounds): 137 HEENT: other - on bipap Respiratory/Chest: lungs clear Cardiovascular: normal rate, regular rhythm, no gallop/murmur Abdomen: soft, non tender, other - GT Extremities: no edema Laboratory Tests Test 05/20/20 15:03 05/21/20 03:35 Arterial Blood pH 7.380 (7.350-7.450) Arterial Blood Partial Pressure CO2 64.0 mmHg (35.0-45.0) *H Arterial Blood Partial Pressure O2 382.0 mmHg (75.0-100.0) H Arterial Blood HCO3 37.1 mmol/L (22.0-26.0) H Arterial Blood Oxygen Saturation 99.1 % (95-100) Arterial Blood Base Excess 9.7 (-2-2) *H Apollo Test Positive White Blood Count 7.6 K/UL (4.8-10.8) Red Blood Count 4.12 M/UL (4.70-6.10) L Hemoglobin 13.3 G/DL (14.2-18.0) L Hematocrit 43.1 % (42.0-52.0) Mean Corpuscular Volume 105 FL (80-99) H Mean Corpuscular Hemoglobin 32.3 PG (27.0-31.0) H Mean Corpuscular Hemoglobin Concent 30.8 G/DL (32.0-36.0) L Red Cell Distribution Width 14.1 % (11.6-14.8) Platelet Count 189 K/UL (150-450) Mean Platelet Volume 10.0 FL (6.5-10.1) Neutrophils (%) (Auto) % (45.0-75.0) Lymphocytes (%) (Auto) % (20.0-45.0) Monocytes (%) (Auto) % (1.0-10.0) Eosinophils (%) (Auto) % (0.0-3.0) Basophils (%) (Auto) % (0.0-2.0) Neutrophils % (Manual) Pending Lymphocytes % (Manual) Pending Platelet Estimate Pending Platelet Morphology Pending Sodium Level 148 MMOL/L (136-145) H Potassium Level 4.0 MMOL/L (3.5-5.1) Chloride Level 108 MMOL/L (98-107) H Carbon Dioxide Level 36 MMOL/L (21-32) H Anion Gap 4 mmol/L (5-15) L Blood Urea Nitrogen 53 mg/dL (7-18) H Creatinine 1.0 MG/DL (0.55-1.30) Estimat Glomerular Filtration Rate > 60 mL/min (>60) Glucose Level 151 MG/DL (74-106) H Calcium Level 9.3 MG/DL (8.5-10.1) Total Bilirubin 0.4 MG/DL (0.2-1.0) Aspartate Amino Transf (AST/SGOT) 31 U/L (15-37) Alanine Aminotransferase (ALT/SGPT) 45 U/L (12-78) Alkaline Phosphatase 113 U/L (46-116) Pro-B-Type Natriuretic Peptide 765 pg/mL (0-125) H Total Protein 8.3 G/DL (6.4-8.2) H Albumin 3.2 G/DL (3.4-5.0) L Globulin 5.1 g/dL Albumin/Globulin Ratio 0.6 (1.0-2.7) L Current Medications Medications (Trade) Dose Ordered Sig/Mayela Route PRN Reason Start Time Stop Time Status Last Admin Dose Admin Acetaminophen (Tylenol) 650 mg Q4H PRN GT back pain 05/06/20 15:15 06/05/20 15:14 05/16/20 07:27 Acetazolamide (Diamox) 250 mg TWICE A DAY GT 05/13/20 09:00 06/12/20 08:59 05/21/20 09:39 Amlodipine Besylate (Norvasc) 5 mg DAILY GT 05/07/20 09:00 06/06/20 08:59 05/21/20 09:55 Ascorbic Acid (Vitamin C) 500 mg DAILY GT 05/07/20 09:00 06/06/20 08:59 05/21/20 09:39 Aspirin (ASA) 81 mg DAILY GT 05/07/20 09:00 06/21/20 08:59 05/21/20 09:37 Carvedilol (Coreg) 3.125 mg EVERY 12 HOURS GT 05/07/20 09:00 06/06/20 08:59 05/21/20 09:39 Clonidine HCl (Catapres Tab) 0.1 mg Q4H PRN ORAL SBP >160 05/08/20 22:15 08/06/20 22:14 Docusate Sodium (Colace) 200 mg BID GT 05/06/20 18:00 06/05/20 17:59 05/21/20 09:38 Furosemide (Lasix) 40 mg BID IV 05/18/20 18:00 06/17/20 17:59 05/21/20 09:40 Heparin Sodium (Porcine) (Heparin 5000 units/ml) 5,000 units EVERY 12 HOURS SUBQ 05/08/20 09:00 06/22/20 08:59 05/21/20 09:42 Levetiracetam (Keppra) 250 mg DAILY GT 05/19/20 15:11 06/18/20 15:10 05/21/20 09:41 Methylprednisolone Sodium Succinate (Solu-MEDROL) 40 mg EVERY 8 HOURS IVP 05/20/20 14:15 08/18/20 14:14 05/21/20 05:20 Multivitamins (Multivitamins W/ Minerals 15ml Liquid) 5 ml DAILY GT 05/07/20 09:00 06/06/20 08:59 05/21/20 09:40 Nitroglycerin (Nitro-Bid) 1 inch TID@0600,1200,1800 TOPIC 05/16/20 18:00 06/15/20 17:59 05/21/20 05:20 Potassium Chloride (K-Dur) 20 meq DAILY GT 05/13/20 09:00 08/11/20 08:59 05/21/20 09:41 Tamsulosin HCl (Flomax) 0.4 mg BEDTIME ORAL 05/06/20 21:00 06/05/20 20:59 05/20/20 20:16 Josué Light MD May 21, 2020 10:57
[2020-05-21 12:00] VITALS: BP 122/68
--- NOTE | 2020-05-21 13:56 | Pulmonology Progress Note ---
Subjective ROS Limited/Unobtainable: Yes Constitutional: Denies: fever Allergies: Coded Allergies: PENICILLINS (Unverified Allergy, Unknown, 08/11/19) All Systems: reviewed and negative except above Subjective care noted on BIPAP chronically no distress acid base noted- better imaging noted Objective Last 24 Hour Vital Signs Date Time Temp Pulse Resp B/P (MAP) Pulse Ox O2 Delivery O2 Flow Rate FiO2 05/21/20 13:06 122/68 05/21/20 12:00 90 05/21/20 12:00 30 05/21/20 12:00 98.2 86 20 122/68 (86) 99 05/21/20 09:55 92 123/80 05/21/20 09:39 92 123/80 05/21/20 08:58 89 13 98 30 05/21/20 08:00 97.7 92 20 123/80 (94) 99 05/21/20 08:00 89 05/21/20 08:00 30 05/21/20 07:16 100 Bi-Pap 30 05/21/20 07:16 77 14 100 30 05/21/20 05:20 143/85 05/21/20 04:49 91 16 99 30 05/21/20 04:00 97.7 85 16 143/85 (104) 99 05/21/20 04:00 89 05/21/20 04:00 30 05/21/20 04:00 Bi-pap 05/21/20 02:39 92 16 98 30 05/21/20 00:55 90 17 99 30 05/21/20 00:00 97.9 69 15 132/69 (90) 100 05/21/20 00:00 79 05/21/20 00:00 30 05/21/20 00:00 Bi-pap 05/20/20 22:45 65 14 98 30 05/20/20 21:03 74 20 99 30 05/20/20 20:16 73 128/61 05/20/20 20:00 97.8 62 16 128/61 (83) 99 05/20/20 20:00 Bi-pap 05/20/20 20:00 30 05/20/20 20:00 84 05/20/20 18:58 67 13 99 30 05/20/20 18:58 99 Bi-Pap 30 05/20/20 17:21 130/67 05/20/20 16:30 52 14 100 30 05/20/20 16:19 97.7 72 18 130/67 (88) 100 05/20/20 16:00 30 05/20/20 16:00 Bi-pap 05/20/20 15:48 80 Intake and Output 05/20/20 05/21/20 19:00 07:00 Intake Total 745 ml 590 ml Output Total 900 ml 400 ml Balance -155 ml 190 ml Intake Free Water 225 ml 150 ml Tube Feeding 520 ml 440 ml Output Urine Total 900 ml 400 ml # Bowel Movements 5 2 Objective WDWN NAD reduced breath sounds bilaterally without rhonchi [id number] without MRG NABS nontender no CC mild edema nonfocal on BIPAP reduced LOC Laboratory Tests 05/20/20 15:03: Arterial Blood pH 7.380, Arterial Blood Partial Pressure CO2 64.0*H, Arterial Blood Partial Pressure O2 382.0H, Arterial Blood HCO3 37.1H, Arterial Blood Oxygen Saturation 99.1, Arterial Blood Base Excess 9.7*H, Apollo Test Positive 05/21/20 03:35: White Blood Count 7.6, Red Blood Count 4.12L, Hemoglobin 13.3L, Hematocrit 43.1, Mean Corpuscular Volume 105H, Mean Corpuscular Hemoglobin 32.3H, Mean Corpuscular Hemoglobin Concent 30.8L, Red Cell Distribution Width 14.1, Platelet Count 189, Mean Platelet Volume 10.0, Neutrophils (%) (Auto) , Lymphocytes (%) (Auto) , Monocytes (%) (Auto) , Eosinophils (%) (Auto) , Basophils (%) (Auto) , Differential Total Cells Counted 100, Neutrophils % (Manual) 84H, Lymphocytes % (Manual) 11L, Monocytes % (Manual) 5, Eosinophils % (Manual) 0, Basophils % (Manual) 0, Band Neutrophils 0, Platelet Estimate Adequate, Platelet Morphology Normal, Macrocytosis 1+, Sodium Level 148H, Potassium Level 4.0, Chloride Level 108H, Carbon Dioxide Level 36H, Anion Gap 4L, Blood Urea Nitrogen 53H, Creatinine 1.0, Estimat Glomerular Filtration Rate > 60, Glucose Level 151H, Calcium Level 9.3, Total Bilirubin 0.4, Aspartate Amino Transf (AST/SGOT) 31, Alanine Aminotransferase (ALT/SGPT) 45, Alkaline Phosphatase 113, Pro-B-Type Natriuretic Peptide 765H, Total Protein 8.3H, Albumin 3.2L, Globulin 5.1, Albumin/Globulin Ratio 0.6L Current Medications Medications (Trade) Dose Ordered Sig/Mayela Route PRN Reason Start Time Stop Time Status Last Admin Dose Admin Acetaminophen (Tylenol) 650 mg Q4H PRN GT back pain 05/06/20 15:15 06/05/20 15:14 05/16/20 07:27 Acetazolamide (Diamox) 250 mg TWICE A DAY GT 05/13/20 09:00 06/12/20 08:59 05/21/20 09:39 Amlodipine Besylate (Norvasc) 5 mg DAILY GT 05/07/20 09:00 06/06/20 08:59 05/21/20 09:55 Ascorbic Acid (Vitamin C) 500 mg DAILY GT 05/07/20 09:00 06/06/20 08:59 05/21/20 09:39 Aspirin (ASA) 81 mg DAILY GT 05/07/20 09:00 06/21/20 08:59 05/21/20 09:37 Carvedilol (Coreg) 3.125 mg EVERY 12 HOURS GT 05/07/20 09:00 06/06/20 08:59 05/21/20 09:39 Clonidine HCl (Catapres Tab) 0.1 mg Q4H PRN ORAL SBP >160 05/08/20 22:15 08/06/20 22:14 Docusate Sodium (Colace) 200 mg BID GT 05/06/20 18:00 06/05/20 17:59 05/21/20 09:38 Furosemide (Lasix) 40 mg BID IV 05/18/20 18:00 06/17/20 17:59 05/21/20 09:40 Heparin Sodium (Porcine) (Heparin 5000 units/ml) 5,000 units EVERY 12 HOURS SUBQ 05/08/20 09:00 06/22/20 08:59 05/21/20 09:42 Levetiracetam (Keppra) 250 mg DAILY GT 05/19/20 15:11 06/18/20 15:10 05/21/20 09:41 Methylprednisolone Sodium Succinate (Solu-MEDROL) 40 mg EVERY 8 HOURS IVP 05/20/20 14:15 08/18/20 14:14 05/21/20 05:20 Multivitamins (Multivitamins W/ Minerals 15ml Liquid) 5 ml DAILY GT 05/07/20 09:00 06/06/20 08:59 05/21/20 09:40 Nitroglycerin (Nitro-Bid) 1 inch TID@0600,1200,1800 TOPIC 05/16/20 18:00 06/15/20 17:59 05/21/20 13:06 Potassium Chloride (K-Dur) 20 meq DAILY GT 05/13/20 09:00 08/11/20 08:59 05/21/20 09:41 Tamsulosin HCl (Flomax) 0.4 mg BEDTIME ORAL 05/06/20 21:00 06/05/20 20:59 05/20/20 20:16 Assessment/Plan Assessment/Plan ASSESSMENT: Pulmonary congestion, respiratory failure, hypoxemia dementia, G-tube, seizure disorder, congestive heart failure, COPD sepsis, and acute ID. acute on chronic CO2 retention PLAN: maintain oxygen and BIPAP repeat ABG noted. Breathing treatments and aspiration precautions. Monitor blood gases for change.keep negative. seizure medications. feeds and monitor residuals; DNR noted DVT prophylaxis unable to taper off BIPAP- consider life 2000 external vent which can possibly support patient without BIPAP will discuss monitor lytes remains guarded d/w primary impression, plan, and exam edited and reviewed in detail care discussed with Attila Yuan MD May 21, 2020 13:56
--- NOTE | 2020-05-21 15:49 | General Progress Note ---
Subjective ROS Limited/Unobtainable: No Constitutional: Reports: malaise, weakness HEENT: Reports: no symptoms Cardiovascular: Reports: no symptoms Respiratory: Reports: shortness of breath Gastrointestinal/Abdominal: Reports: difficulty swallowing Genitourinary: Reports: no symptoms Neurologic/Psychiatric: Reports: pre-existing deficit, seizure Endocrine: Reports: no symptoms Hematologic/Lymphatic: Reports: no symptoms Allergies: Coded Allergies: PENICILLINS (Unverified Allergy, Unknown, 08/11/19) All Systems: reviewed and negative except above Subjective on bipap. resting.difficulty weaning. poorly responsive and confused. on tube feeds. cxr with left atelectasis Objective Last 24 Hour Vital Signs Date Time Temp Pulse Resp B/P (MAP) Pulse Ox O2 Delivery O2 Flow Rate FiO2 05/21/20 13:06 122/68 05/21/20 12:00 90 05/21/20 12:00 30 05/21/20 12:00 98.2 86 20 122/68 (86) 99 05/21/20 12:00 Bi-pap 05/21/20 09:55 92 123/80 05/21/20 09:39 92 123/80 05/21/20 08:58 89 13 98 30 05/21/20 08:01 Bi-pap 05/21/20 08:00 97.7 92 20 123/80 (94) 99 05/21/20 08:00 89 05/21/20 08:00 30 05/21/20 08:00 Bi-pap 05/21/20 07:16 100 Bi-Pap 30 05/21/20 07:16 77 14 100 30 05/21/20 05:20 143/85 05/21/20 04:49 91 16 99 30 05/21/20 04:00 97.7 85 16 143/85 (104) 99 05/21/20 04:00 89 05/21/20 04:00 30 05/21/20 04:00 Bi-pap 05/21/20 02:39 92 16 98 30 05/21/20 00:55 90 17 99 30 05/21/20 00:00 97.9 69 15 132/69 (90) 100 05/21/20 00:00 79 05/21/20 00:00 30 05/21/20 00:00 Bi-pap 05/20/20 22:45 65 14 98 30 05/20/20 21:03 74 20 99 30 05/20/20 20:16 73 128/61 05/20/20 20:00 97.8 62 16 128/61 (83) 99 05/20/20 20:00 Bi-pap 05/20/20 20:00 30 05/20/20 20:00 84 05/20/20 18:58 67 13 99 30 05/20/20 18:58 99 Bi-Pap 30 05/20/20 17:21 130/67 05/20/20 16:30 52 14 100 30 05/20/20 16:19 97.7 72 18 130/67 (88) 100 05/20/20 16:00 30 05/20/20 16:00 Bi-pap 05/20/20 15:48 80 Intake and Output 05/20/20 05/21/20 19:00 07:00 Intake Total 745 ml 590 ml Output Total 900 ml 400 ml Balance -155 ml 190 ml Intake Free Water 225 ml 150 ml Tube Feeding 520 ml 440 ml Output Urine Total 900 ml 400 ml # Bowel Movements 5 2 Laboratory Tests 05/21/20 03:35: White Blood Count 7.6, Red Blood Count 4.12L, Hemoglobin 13.3L, Hematocrit 43.1, Mean Corpuscular Volume 105H, Mean Corpuscular Hemoglobin 32.3H, Mean Corpuscular Hemoglobin Concent 30.8L, Red Cell Distribution Width 14.1, Platelet Count 189, Mean Platelet Volume 10.0, Neutrophils (%) (Auto) , Lymphocytes (%) (Auto) , Monocytes (%) (Auto) , Eosinophils (%) (Auto) , Basophils (%) (Auto) , Differential Total Cells Counted 100, Neutrophils % (Manual) 84H, Lymphocytes % (Manual) 11L, Monocytes % (Manual) 5, Eosinophils % (Manual) 0, Basophils % (Manual) 0, Band Neutrophils 0, Platelet Estimate Adequate, Platelet Morphology Normal, Macrocytosis 1+, Sodium Level 148H, Potassium Level 4.0, Chloride Level 108H, Carbon Dioxide Level 36H, Anion Gap 4L, Blood Urea Nitrogen 53H, Creatinine 1.0, Estimat Glomerular Filtration Rate > 60, Glucose Level 151H, Calcium Level 9.3, Total Bilirubin 0.4, Aspartate Amino Transf (AST/SGOT) 31, Alanine Aminotransferase (ALT/SGPT) 45, Alkaline Phosphatase 113, Pro-B-Type Natriuretic Peptide 765H, Total Protein 8.3H, Albumin 3.2L, Globulin 5.1, Album in/Globulin Ratio 0.6L Height (Feet): 5 Height (Inches): 6.00 Weight (Pounds): 137 Objective General Appearance: WD/WN, alert, confused EENT: normal ENT inspection Neck: normal alignment Cardiovascular: normal rate Respiratory/Chest: chest wall non-tender, lungs clear, normal breath sounds Abdomen: normal bowel sounds, non tender, soft, no organomegaly Edema: no edema noted Arm (L), no edema noted Arm (R) Neurologic: alert, disoriented Assessment/Plan Problem List: (1) Seizure ICD Codes: R56.9 - Unspecified convulsions SNOMED: 64752978 (2) Dysphagia ICD Codes: R13.10 - Dysphagia, unspecified SNOMED: 42537365, 749834322 (3) UTI (urinary tract infection) ICD Codes: N39.0 - Urinary tract infection, site not specified SNOMED: 54394001 (4) Elevated troponin I level ICD Codes: R77.8 - Other specified abnormalities of plasma proteins SNOMED: 618665820 (5) AMS (altered mental status) ICD Codes: R41.82 - Altered mental status, unspecified SNOMED: 876289139 (6) NSTEMI (non-ST elevated myocardial infarction) ICD Codes: I21.4 - Non-ST elevation (NSTEMI) myocardial infarction SNOMED: 96757732 Status: stable Assessment/Plan: bipap monitor abg- ordered for this am wean o2/bipap as able iv steroids tube feeds monitor residual monitor for vomiting decrease sz iv abx diuresis cxr reviewed- stable monitor labs anxiolytics as needed o2 resp rx dvt/stress ulcer prophylaxis. message left with on to discuss trach- doubt family wants Jorge Kee MD May 21, 2020 15:49
--- NOTE | 2020-05-21 15:50 | Surgery Progress Note ---
Surgery Progress Note Subjective Additional Comments no acute events cxr noted Objective Last 24 Hour Vital Signs Date Time Temp Pulse Resp B/P (MAP) Pulse Ox O2 Delivery O2 Flow Rate FiO2 05/21/20 13:06 122/68 05/21/20 12:00 90 05/21/20 12:00 30 05/21/20 12:00 98.2 86 20 122/68 (86) 99 05/21/20 12:00 Bi-pap 05/21/20 09:55 92 123/80 05/21/20 09:39 92 123/80 05/21/20 08:58 89 13 98 30 05/21/20 08:01 Bi-pap 05/21/20 08:00 97.7 92 20 123/80 (94) 99 05/21/20 08:00 89 05/21/20 08:00 30 05/21/20 08:00 Bi-pap 05/21/20 07:16 100 Bi-Pap 30 05/21/20 07:16 77 14 100 30 05/21/20 05:20 143/85 05/21/20 04:49 91 16 99 30 05/21/20 04:00 97.7 85 16 143/85 (104) 99 05/21/20 04:00 89 05/21/20 04:00 30 05/21/20 04:00 Bi-pap 05/21/20 02:39 92 16 98 30 05/21/20 00:55 90 17 99 30 05/21/20 00:00 97.9 69 15 132/69 (90) 100 05/21/20 00:00 79 05/21/20 00:00 30 05/21/20 00:00 Bi-pap 05/20/20 22:45 65 14 98 30 05/20/20 21:03 74 20 99 30 05/20/20 20:16 73 128/61 05/20/20 20:00 97.8 62 16 128/61 (83) 99 05/20/20 20:00 Bi-pap 05/20/20 20:00 30 05/20/20 20:00 84 05/20/20 18:58 67 13 99 30 05/20/20 18:58 99 Bi-Pap 30 05/20/20 17:21 130/67 05/20/20 16:30 52 14 100 30 05/20/20 16:19 97.7 72 18 130/67 (88) 100 05/20/20 16:00 30 05/20/20 16:00 Bi-pap I&O Intake and Output 05/20/20 05/21/20 19:00 07:00 Intake Total 745 ml 590 ml Output Total 900 ml 400 ml Balance -155 ml 190 ml Intake Free Water 225 ml 150 ml Tube Feeding 520 ml 440 ml Output Urine Total 900 ml 400 ml # Bowel Movements 5 2 Cardiovascular: RSR Respiratory: decreased breath sounds Abdomen: non-tender, present bowel sounds Extremities: no edema, no tenderness, no cyanosis Laboratory Tests Test 05/21/20 03:35 White Blood Count 7.6 K/UL (4.8-10.8) Red Blood Count 4.12 M/UL (4.70-6.10) L Hemoglobin 13.3 G/DL (14.2-18.0) L Hematocrit 43.1 % (42.0-52.0) Mean Corpuscular Volume 105 FL (80-99) H Mean Corpuscular Hemoglobin 32.3 PG (27.0-31.0) H Mean Corpuscular Hemoglobin Concent 30.8 G/DL (32.0-36.0) L Red Cell Distribution Width 14.1 % (11.6-14.8) Platelet Count 189 K/UL (150-450) Mean Platelet Volume 10.0 FL (6.5-10.1) Neutrophils (%) (Auto) % (45.0-75.0) Lymphocytes (%) (Auto) % (20.0-45.0) Monocytes (%) (Auto) % (1.0-10.0) Eosinophils (%) (Auto) % (0.0-3.0) Basophils (%) (Auto) % (0.0-2.0) Differential Total Cells Counted 100 Neutrophils % (Manual) 84 % (45-75) H Lymphocytes % (Manual) 11 % (20-45) L Monocytes % (Manual) 5 % (1-10) Eosinophils % (Manual) 0 % (0-3) Basophils % (Manual) 0 % (0-2) Band Neutrophils 0 % (0-8) Platelet Estimate Adequate Platelet Morphology Normal Macrocytosis 1+ Sodium Level 148 MMOL/L (136-145) H Potassium Level 4.0 MMOL/L (3.5-5.1) Chloride Level 108 MMOL/L (98-107) H Carbon Dioxide Level 36 MMOL/L (21-32) H Anion Gap 4 mmol/L (5-15) L Blood Urea Nitrogen 53 mg/dL (7-18) H Creatinine 1.0 MG/DL (0.55-1.30) Estimat Glomerular Filtration Rate > 60 mL/min (>60) Glucose Level 151 MG/DL (74-106) H Calcium Level 9.3 MG/DL (8.5-10.1) Total Bilirubin 0.4 MG/DL (0.2-1.0) Aspartate Amino Transf (AST/SGOT) 31 U/L (15-37) Alanine Aminotransferase (ALT/SGPT) 45 U/L (12-78) Alkaline Phosphatase 113 U/L (46-116) Pro-B-Type Natriuretic Peptide 765 pg/mL (0-125) H Total Protein 8.3 G/DL (6.4-8.2) H Albumin 3.2 G/DL (3.4-5.0) L Globulin 5.1 g/dL Albumin/Globulin Ratio 0.6 (1.0-2.7) L Plan Problems: (1) Deep tissue injury Assessment & Plan: Patient identified to have bilateral heel concerns for potential developing DTI. Soft boggy no fluid collection no acute injury at this time. Patient identified to have sacral erythema and skin changes with concerns for developing deep tissue injury as well. No open areas. No fluid collections no fluctuance no drainage. On the scrotum patient is identified to have edema erythema and some abrasion along with incontinence associated dermatitis in the area. Patient identified to have abrasion to the nasal brim secondary to a facemask placement. Patient is chronically ill elderly and malnourished. Wound evaluated and care plan initiated. Treatment plan Apply skin protectant to the nasal bridge followed by foam dressing prior to facemask placement. Patient currently requires oxygen supplementation and therefore important to ensure receiving such along with protection of underlying epidermis. Apply OPTi foam to heels change every 3 days offload pressure with pillows Apply OPTi foam to sacral area monitor for incontinence change accordingly every 3 days and as needed saturation. Soft towel under scrotum. Continue with respiratory supportive care Turn every 2 hours Offload pressure with pillows Continue tube feeds nutritional optimization we will follow with recommendations thank you for let me participate patient's care (2) Dementia with behavioral problem (3) UTI (urinary tract infection) (4) Elevated troponin I level (5) AMS (altered mental status) (6) Dysphagia Assessment & Plan: DAILY ESTIMATED NEEDS: Needs based on Pulmonary, cardiac, 62kg 25-30 kcals/kg 0124-7553 total kcals 1-1.5 g protein/kg 62-93 g total protein 25-30 mL/kg 5567-8918 total fluid mLs NUTRITION DIAGNOSIS: Swallowing difficulty r/t dysphagia as evidenced by pt is PEG dep, currently on continuous BIPAP. CURRENT TF: Glucerna 1.5 @ 40ml/hr ENTERAL NUTRITION RECOMMENDATIONS: Glucerna 1.5 goal of 45ml/hr x 24 hrs to provide 1080ml, 1620 kcal, 89g pro, 820ml free water * Maintain carb controlled TF of Glucerna 1.5 while CO2 critically elevated * As medically appropriate, increase goal rate to 45ml/hr x 24 hrs to better meet nutritional needs. * HOB over 30 degrees/ water flush per MD ADDITIONAL RECOMMENDATIONS: 1) Monitor BIPAP usage, safety of GT feeds -> continuous BIPAP at this time 2) Lytes daily, replete as needed Current TF Glucerna 1.5 @goal of 40ml/hr provides 2419mg K/day 3) Calibrated bed scale wts (Bed scale shows uptrend: 65kg-> 71kg) 4) Rec HgA1C for eval of BG control 5) F/up w/ WC eval: Continue MVI and Vit C (7) Seizure (8) NSTEMI (non-ST elevated myocardial infarction) (9) Respiratory insufficiency Assessment & Plan: constant required bipap ? trach dnr/dni discussed with pcp and Benitez Jefferson May 21, 2020 15:50
[2020-05-21 16:00] VITALS: BP 140/76
--- NOTE | 2020-05-21 19:31 | Cardiology Progress Note ---
Subjective DATE OF SERVICE: May 21, 2020 Still requiring bipap with tenuous acid-base and oxygen parameters. 7.38/68/384 (05/16/20) proBNP has decreased to 1027 on 05/19.. CXR (05/19) low lung volumes without interval change BP now well controlled. Objective Last 24 Hour Vital Signs Date Time Temp Pulse Resp B/P (MAP) Pulse Ox O2 Delivery O2 Flow Rate FiO2 05/21/20 19:16 99 Venturi Mask 8.0 35 05/21/20 18:49 128/77 05/21/20 16:00 93 05/21/20 16:00 97.7 85 18 140/76 (97) 100 05/21/20 16:00 8.0 35 05/21/20 16:00 Bi-pap 05/21/20 13:22 81 14 98 30 05/21/20 13:06 122/68 05/21/20 12:00 90 05/21/20 12:00 30 05/21/20 12:00 98.2 86 20 122/68 (86) 99 05/21/20 12:00 Bi-pap 05/21/20 11:00 88 15 99 30 05/21/20 09:55 92 123/80 05/21/20 09:39 92 123/80 05/21/20 08:58 89 13 98 30 05/21/20 08:01 Bi-pap 05/21/20 08:00 97.7 92 20 123/80 (94) 99 05/21/20 08:00 89 05/21/20 08:00 30 05/21/20 08:00 Bi-pap 05/21/20 07:16 100 Bi-Pap 30 05/21/20 07:16 77 14 100 30 05/21/20 05:20 143/85 05/21/20 04:49 91 16 99 30 05/21/20 04:00 97.7 85 16 143/85 (104) 99 05/21/20 04:00 89 05/21/20 04:00 30 05/21/20 04:00 Bi-pap 05/21/20 02:39 92 16 98 30 05/21/20 00:55 90 17 99 30 05/21/20 00:00 97.9 69 15 132/69 (90) 100 05/21/20 00:00 79 05/21/20 00:00 30 05/21/20 00:00 Bi-pap 05/20/20 22:45 65 14 98 30 05/20/20 21:03 74 20 99 30 05/20/20 20:16 73 128/61 05/20/20 20:00 97.8 62 16 128/61 (83) 99 05/20/20 20:00 Bi-pap 05/20/20 20:00 30 05/20/20 20:00 84 ROS: unchanged from my evaluation of 05/06/20 RHYTHM: NSR LUNGS: diminished breath sounds CARDIAC: normal rate, regular rhythm, normal S1 and S2 ABDOMEN: G-Tube intact EXTREMITIES: non-pitting, No edema Laboratory Tests Test 05/21/20 03:35 White Blood Count 7.6 K/UL (4.8-10.8) Red Blood Count 4.12 M/UL (4.70-6.10) L Hemoglobin 13.3 G/DL (14.2-18.0) L Hematocrit 43.1 % (42.0-52.0) Mean Corpuscular Volume 105 FL (80-99) H Mean Corpuscular Hemoglobin 32.3 PG (27.0-31.0) H Mean Corpuscular Hemoglobin Concent 30.8 G/DL (32.0-36.0) L Red Cell Distribution Width 14.1 % (11.6-14.8) Platelet Count 189 K/UL (150-450) Mean Platelet Volume 10.0 FL (6.5-10.1) Neutrophils (%) (Auto) % (45.0-75.0) Lymphocytes (%) (Auto) % (20.0-45.0) Monocytes (%) (Auto) % (1.0-10.0) Eosinophils (%) (Auto) % (0.0-3.0) Basophils (%) (Auto) % (0.0-2.0) Differential Total Cells Counted 100 Neutrophils % (Manual) 84 % (45-75) H Lymphocytes % (Manual) 11 % (20-45) L Monocytes % (Manual) 5 % (1-10) Eosinophils % (Manual) 0 % (0-3) Basophils % (Manual) 0 % (0-2) Band Neutrophils 0 % (0-8) Platelet Estimate Adequate Platelet Morphology Normal Macrocytosis 1+ Sodium Level 148 MMOL/L (136-145) H Potassium Level 4.0 MMOL/L (3.5-5.1) Chloride Level 108 MMOL/L (98-107) H Carbon Dioxide Level 36 MMOL/L (21-32) H Anion Gap 4 mmol/L (5-15) L Blood Urea Nitrogen 53 mg/dL (7-18) H Creatinine 1.0 MG/DL (0.55-1.30) Estimat Glomerular Filtration Rate > 60 mL/min (>60) Glucose Level 151 MG/DL (74-106) H Calcium Level 9.3 MG/DL (8.5-10.1) Total Bilirubin 0.4 MG/DL (0.2-1.0) Aspartate Amino Transf (AST/SGOT) 31 U/L (15-37) Alanine Aminotransferase (ALT/SGPT) 45 U/L (12-78) Alkaline Phosphatase 113 U/L (46-116) Pro-B-Type Natriuretic Peptide 765 pg/mL (0-125) H Total Protein 8.3 G/DL (6.4-8.2) H Albumin 3.2 G/DL (3.4-5.0) L Globulin 5.1 g/dL Albumin/Globulin Ratio 0.6 (1.0-2.7) L Assessment/Plan Assessment/Plan E.coli UTI Sepsis Metabolic and toxic encephalopathies Cerebrovascular disease with dementia Acute myocardial ischemia and possible NSTEMI Hypovolemia and dehydration corrected Hypertension/HHD Ac/chronic respiratory acidosis - worse today Respiratory failure still requiring bipap support Ac diastolic CHF improving; BNP continues steady decline Metabolic acidosis Pleural effusions Continue anti-anginal regimen; titrate meds for BP control. Nitrates continued. Antimicrobials Maintaining diuresis with loop diuretic and acetazolamide. Monitor acid-base parameters. Bipap support with taper Consideration on-going regarding trach. Real Magana MD May 21, 2020 19:31
[2020-05-21 20:00] VITALS: BP 131/74
[2020-05-21] MEDS: Tamsulosin 0.4mg cap ORAL SCH (20:18)
[2020-05-22] VITALS: BP 140/80
[2020-05-22 04:00] VITALS: BP 134/85
[2020-05-22] MEDS: Solu-MEDROL 40mg Inj IVP SCH ×3 (05:14→22:53)
[2020-05-22] MEDS: Nitroglycerin 2% oint pkt TOPIC SCH ×3 (05:15→17:08)
[2020-05-22 08:00] VITALS: BP 126/80
[2020-05-22] MEDS: Multivitamins W/Minerals 15 ML UDC GT SCH (08:18)
[2020-05-22] MEDS: Docusate 100mg/10ml Liq GT SCH ×2 (08:21→17:07)
[2020-05-22] MEDS: levETIRAcetam 500mg/5ml Liquid GT SCH (08:22)
[2020-05-22] MEDS: Ascorbic Acid 500mg tab GT SCH (08:22)
[2020-05-22] MEDS: Aspirin Baby 81mg GT SCH (08:22)
[2020-05-22] MEDS: Heparin 5000 units/ml inj SUBQ SCH ×2 (08:32→20:35)
--- NOTE | 2020-05-22 10:06 | Pulmonology Progress Note ---
Subjective ROS Limited/Unobtainable: No Constitutional: Denies: fever Allergies: Coded Allergies: PENICILLINS (Unverified Allergy, Unknown, 08/11/19) All Systems: reviewed and negative except above Subjective care noted off BIPAP this mornin no distress imaging noted Objective Last 24 Hour Vital Signs Date Time Temp Pulse Resp B/P (MAP) Pulse Ox O2 Delivery O2 Flow Rate FiO2 05/22/20 09:00 30 05/22/20 08:24 91 126/78 05/22/20 08:24 91 126/78 05/22/20 08:00 8.0 35 05/22/20 08:00 97.8 91 22 126/80 (95) 100 05/22/20 08:00 Venturi Mask 8.0 05/22/20 07:48 92 05/22/20 07:42 100 Venturi Mask 8.0 35 05/22/20 05:15 132/78 05/22/20 04:00 97.7 86 22 134/85 (101) 100 05/22/20 04:00 Bi-pap 05/22/20 04:00 8.0 35 05/22/20 03:39 87 05/22/20 00:00 87 05/22/20 00:00 Bi-pap 05/22/20 00:00 98.2 89 20 140/80 (100) 100 05/21/20 20:18 80 131/74 05/21/20 20:00 Bi-pap 05/21/20 20:00 98.2 85 19 131/74 (93) 100 05/21/20 20:00 8.0 35 05/21/20 19:16 87 05/21/20 19:16 99 Venturi Mask 8.0 35 05/21/20 18:49 128/77 05/21/20 16:00 93 05/21/20 16:00 97.7 85 18 140/76 (97) 100 05/21/20 16:00 8.0 35 05/21/20 16:00 Bi-pap 05/21/20 13:22 81 14 98 30 05/21/20 13:06 122/68 05/21/20 12:00 90 05/21/20 12:00 30 05/21/20 12:00 98.2 86 20 122/68 (86) 99 05/21/20 12:00 Bi-pap 05/21/20 11:00 88 15 99 30 Intake and Output 05/21/20 05/22/20 19:00 07:00 Intake Total 810 ml 625 ml Output Total 1000 ml 600 ml Balance -190 ml 25 ml Intake Free Water 210 ml 225 ml Tube Feeding 480 ml 400 ml Other 120 ml Output Urine Total 1000 ml 600 ml # Bowel Movements 1 3 Objective WDWN NAD reduced breath sounds bilaterally without rhonchi [id number] without MRG NABS nontender no CC mild edema nonfocal off BIPAP reduced LOC Laboratory Tests 05/22/20 08:09: Arterial Blood pH 7.374, Arterial Blood Partial Pressure CO2 66.0*H, Arterial Blood Partial Pressure O2 102.2H, Arterial Blood HCO3 37.6H, Arterial Blood Oxygen Saturation 97.4, Arterial Blood Base Excess 9.7*H, Apollo Test Positive Current Medications Medications (Trade) Dose Ordered Sig/Mayela Route PRN Reason Start Time Stop Time Status Last Admin Dose Admin Acetaminophen (Tylenol) 650 mg Q4H PRN GT back pain 05/06/20 15:15 06/05/20 15:14 05/16/20 07:27 Acetazolamide (Diamox) 250 mg TWICE A DAY GT 05/13/20 09:00 06/12/20 08:59 05/22/20 08:22 Amlodipine Besylate (Norvasc) 5 mg DAILY GT 05/07/20 09:00 06/06/20 08:59 05/22/20 08:24 Ascorbic Acid (Vitamin C) 500 mg DAILY GT 05/07/20 09:00 06/06/20 08:59 05/22/20 08:22 Aspirin (ASA) 81 mg DAILY GT 05/07/20 09:00 06/21/20 08:59 05/22/20 08:22 Carvedilol (Coreg) 3.125 mg EVERY 12 HOURS GT 05/07/20 09:00 06/06/20 08:59 05/22/20 08:24 Clonidine HCl (Catapres Tab) 0.1 mg Q4H PRN ORAL SBP >160 05/08/20 22:15 08/06/20 22:14 Docusate Sodium (Colace) 200 mg BID GT 05/06/20 18:00 06/05/20 17:59 05/22/20 08:21 Furosemide (Lasix) 40 mg BID IV 05/18/20 18:00 06/17/20 17:59 05/22/20 08:21 Heparin Sodium (Porcine) (Heparin 5000 units/ml) 5,000 units EVERY 12 HOURS SUBQ 05/08/20 09:00 06/22/20 08:59 05/22/20 08:32 Levetiracetam (Keppra) 250 mg DAILY GT 05/19/20 15:11 06/18/20 15:10 05/22/20 08:22 Methylprednisolone Sodium Succinate (Solu-MEDROL) 40 mg EVERY 8 HOURS IVP 05/20/20 14:15 08/18/20 14:14 05/22/20 05:14 Multivitamins (Multivitamins W/ Minerals 15ml Liquid) 5 ml DAILY GT 05/07/20 09:00 06/06/20 08:59 05/22/20 08:18 Nitroglycerin (Nitro-Bid) 1 inch TID@0600,1200,1800 TOPIC 05/16/20 18:00 06/15/20 17:59 05/22/20 05:15 Potassium Chloride (K-Dur) 20 meq DAILY GT 05/13/20 09:00 08/11/20 08:59 05/22/20 08:20 Tamsulosin HCl (Flomax) 0.4 mg BEDTIME ORAL 05/06/20 21:00 06/05/20 20:59 05/21/20 20:18 Assessment/Plan Assessment/Plan ASSESSMENT: Pulmonary congestion, respiratory failure, hypoxemia dementia, G-tube, seizure disorder, congestive heart failure, COPD sepsis, and acute SD. acute on chronic CO2 retention PLAN: maintain oxygen and need for BIPAP; repeat ABG noted. Breathing treatments and aspiration precautions. Monitor blood gases for change.keep negative. seizure medications. feeds and monitor residuals; DNR noted DVT prophylaxis hope to maintain off BIPAP ABG in am remains guarded d/w primary impression, plan, and exam edited and reviewed in detail care discussed with Attila Yuan MD May 22, 2020 10:06
--- NOTE | 2020-05-22 11:01 | Infectious Diseases Prog Note ---
Assessment/Plan Assessment/Plan A:1. Urinary tract infection treated 2. MRSA nasal colonization. 3. CHF. 4. COPD. 5. Seizures. 6. Dementia. 7. He is negative for COVID-19. 8. Hypercapnic respiratory failure 9. Pleural effusion PLAN: 1. Obseve off of antibiotic Subjective ROS Limited/Unobtainable: Yes Constitutional: Denies: fever Neurologic: Reports: confusion, other - on restraint Allergies: Coded Allergies: PENICILLINS (Unverified Allergy, Unknown, 08/11/19) Objective Last 24 Hour Vital Signs Date Time Temp Pulse Resp B/P (MAP) Pulse Ox O2 Delivery O2 Flow Rate FiO2 05/22/20 09:00 30 05/22/20 08:24 91 126/78 05/22/20 08:24 91 126/78 05/22/20 08:00 8.0 35 05/22/20 08:00 97.8 91 22 126/80 (95) 100 05/22/20 08:00 Venturi Mask 8.0 05/22/20 07:48 92 05/22/20 07:42 100 Venturi Mask 8.0 35 05/22/20 05:15 132/78 05/22/20 04:00 97.7 86 22 134/85 (101) 100 05/22/20 04:00 Bi-pap 05/22/20 04:00 8.0 35 05/22/20 03:39 87 05/22/20 00:00 87 05/22/20 00:00 Bi-pap 05/22/20 00:00 98.2 89 20 140/80 (100) 100 05/21/20 20:18 80 131/74 05/21/20 20:00 Bi-pap 05/21/20 20:00 98.2 85 19 131/74 (93) 100 05/21/20 20:00 8.0 35 05/21/20 19:16 87 05/21/20 19:16 99 Venturi Mask 8.0 35 05/21/20 18:49 128/77 05/21/20 16:00 93 05/21/20 16:00 97.7 85 18 140/76 (97) 100 05/21/20 16:00 8.0 35 05/21/20 16:00 Bi-pap 05/21/20 13:22 81 14 98 30 05/21/20 13:06 122/68 05/21/20 12:00 90 05/21/20 12:00 30 05/21/20 12:00 98.2 86 20 122/68 (86) 99 05/21/20 12:00 Bi-pap 05/21/20 11:00 88 15 99 30 Height (Feet): 5 Height (Inches): 6.00 Weight (Pounds): 137 HEENT: mucous membranes moist Respiratory/Chest: decreased breath sounds, other - on BIPAP Cardiovascular: normal rate Abdomen: soft, non tender Extremities: no edema Neurologic/Psychiatric: disoriented Laboratory Tests Test 05/22/20 08:09 Arterial Blood pH 7.374 (7.350-7.450) Arterial Blood Partial Pressure CO2 66.0 mmHg (35.0-45.0) *H Arterial Blood Partial Pressure O2 102.2 mmHg (75.0-100.0) H Arterial Blood HCO3 37.6 mmol/L (22.0-26.0) H Arterial Blood Oxygen Saturation 97.4 % (95-100) Arterial Blood Base Excess 9.7 (-2-2) *H Apollo Test Positive Current Medications Medications (Trade) Dose Ordered Sig/Mayela Route PRN Reason Start Time Stop Time Status Last Admin Dose Admin Acetaminophen (Tylenol) 650 mg Q4H PRN GT back pain 05/06/20 15:15 06/05/20 15:14 05/16/20 07:27 Acetazolamide (Diamox) 250 mg TWICE A DAY GT 05/13/20 09:00 06/12/20 08:59 05/22/20 08:22 Amlodipine Besylate (Norvasc) 5 mg DAILY GT 05/07/20 09:00 06/06/20 08:59 05/22/20 08:24 Ascorbic Acid (Vitamin C) 500 mg DAILY GT 05/07/20 09:00 06/06/20 08:59 05/22/20 08:22 Aspirin (ASA) 81 mg DAILY GT 05/07/20 09:00 06/21/20 08:59 05/22/20 08:22 Carvedilol (Coreg) 3.125 mg EVERY 12 HOURS GT 05/07/20 09:00 06/06/20 08:59 05/22/20 08:24 Clonidine HCl (Catapres Tab) 0.1 mg Q4H PRN ORAL SBP >160 05/08/20 22:15 08/06/20 22:14 Docusate Sodium (Colace) 200 mg BID GT 05/06/20 18:00 06/05/20 17:59 05/22/20 08:21 Furosemide (Lasix) 40 mg BID IV 05/18/20 18:00 06/17/20 17:59 05/22/20 08:21 Heparin Sodium (Porcine) (Heparin 5000 units/ml) 5,000 units EVERY 12 HOURS SUBQ 05/08/20 09:00 06/22/20 08:59 05/22/20 08:32 Levetiracetam (Keppra) 250 mg DAILY GT 05/19/20 15:11 06/18/20 15:10 05/22/20 08:22 Methylprednisolone Sodium Succinate (Solu-MEDROL) 40 mg EVERY 8 HOURS IVP 05/20/20 14:15 08/18/20 14:14 05/22/20 05:14 Multivitamins (Multivitamins W/ Minerals 15ml Liquid) 5 ml DAILY GT 05/07/20 09:00 06/06/20 08:59 05/22/20 08:18 Nitroglycerin (Nitro-Bid) 1 inch TID@0600,1200,1800 TOPIC 05/16/20 18:00 06/15/20 17:59 05/22/20 05:15 Potassium Chloride (K-Dur) 20 meq DAILY GT 05/13/20 09:00 08/11/20 08:59 05/22/20 08:20 Tamsulosin HCl (Flomax) 0.4 mg BEDTIME ORAL 05/06/20 21:00 06/05/20 20:59 05/21/20 20:18 Luis Yanes MD May 22, 2020 11:01
[2020-05-22 12:00] VITALS: BP 130/79
--- NOTE | 2020-05-22 15:23 | General Progress Note ---
Subjective ROS Limited/Unobtainable: No Constitutional: Reports: malaise, weakness HEENT: Reports: no symptoms Cardiovascular: Reports: no symptoms Respiratory: Reports: cough, shortness of breath, sputum Gastrointestinal/Abdominal: Reports: difficulty swallowing Genitourinary: Reports: no symptoms Neurologic/Psychiatric: Reports: pre-existing deficit, seizure Endocrine: Reports: no symptoms Hematologic/Lymphatic: Reports: anemia Allergies: Coded Allergies: PENICILLINS (Unverified Allergy, Unknown, 08/11/19) All Systems: reviewed and negative except above Subjective stable on venti mask. awake. lethargic. no fever or chills. no sob. mild congestion. tolerating feeds. labs noted. Objective Last 24 Hour Vital Signs Date Time Temp Pulse Resp B/P (MAP) Pulse Ox O2 Delivery O2 Flow Rate FiO2 05/22/20 12:59 130/79 05/22/20 12:00 100.0 87 19 130/79 (96) 100 05/22/20 12:00 30 05/22/20 12:00 Bi-pap 05/22/20 12:00 90 05/22/20 09:00 30 05/22/20 08:24 91 126/78 05/22/20 08:24 91 126/78 05/22/20 08:00 8.0 35 05/22/20 08:00 97.8 91 22 126/80 (95) 100 05/22/20 08:00 Venturi Mask 8.0 05/22/20 07:48 92 05/22/20 07:42 100 Venturi Mask 8.0 35 05/22/20 05:15 132/78 05/22/20 04:00 97.7 86 22 134/85 (101) 100 05/22/20 04:00 Bi-pap 05/22/20 04:00 8.0 35 05/22/20 03:39 87 05/22/20 00:00 87 05/22/20 00:00 Bi-pap 05/22/20 00:00 98.2 89 20 140/80 (100) 100 05/21/20 20:18 80 131/74 05/21/20 20:00 Bi-pap 05/21/20 20:00 98.2 85 19 131/74 (93) 100 05/21/20 20:00 8.0 35 11/11/20 19:16 87 05/21/20 19:16 99 Venturi Mask 8.0 35 05/21/20 18:49 128/77 05/21/20 16:00 93 05/21/20 16:00 97.7 85 18 140/76 (97) 100 05/21/20 16:00 8.0 35 05/21/20 16:00 Bi-pap Intake and Output 05/21/20 05/22/20 19:00 07:00 Intake Total 810 ml 625 ml Output Total 1000 ml 600 ml Balance -190 ml 25 ml Intake Free Water 210 ml 225 ml Tube Feeding 480 ml 400 ml Other 120 ml Output Urine Total 1000 ml 600 ml # Bowel Movements 1 3 Laboratory Tests 05/22/20 08:09: Arterial Blood pH 7.374, Arterial Blood Partial Pressure CO2 66.0*H, Arterial Bl ood Partial Pressure O2 102.2H, Arterial Blood HCO3 37.6H, Arterial Blood Oxygen Saturation 97.4, Arterial Blood Base Excess 9.7*H, Apollo Test Positive Height (Feet): 5 Height (Inches): 6.00 Weight (Pounds): 137 Objective General Appearance: WD/WN, alert, confused EENT: normal ENT inspection Neck: normal alignment Cardiovascular: normal rate Respiratory/Chest: chest wall non-tender, lungs clear, normal breath sounds Abdomen: normal bowel sounds, non tender, soft, no organomegaly Edema: no edema noted Arm (L), no edema noted Arm (R) Neurologic: alert, disoriented Assessment/Plan Problem List: (1) Seizure ICD Codes: R56.9 - Unspecified convulsions SNOMED: 90331898 (2) Dysphagia ICD Codes: R13.10 - Dysphagia, unspecified SNOMED: 22354895, 058507953 (3) UTI (urinary tract infection) ICD Codes: N39.0 - Urinary tract infection, site not specified SNOMED: 67569516 (4) Elevated troponin I level ICD Codes: R77.8 - Other specified abnormalities of plasma proteins SNOMED: 066208702 (5) AMS (altered mental status) ICD Codes: R41.82 - Altered mental status, unspecified SNOMED: 253970790 (6) NSTEMI (non-ST elevated myocardial infarction) ICD Codes: I21.4 - Non-ST elevation (NSTEMI) myocardial infarction SNOMED: 75838151 Status: stable Assessment/Plan: bipap as needed venti mask monitor abg wean o2/bipap as able iv steroids- wean tube feeds monitor residual monitor for vomiting decrease sz iv abx diuresis- hold lasix cxr reviewed- stable monitor labs anxiolytics as needed o2 resp rx dvt/stress ulcer prophylaxis. message left with on to discuss trach- doubt family wants Jorge Kee MD May 22, 2020 15:23
[2020-05-22 16:00] VITALS: BP 132/82
--- NOTE | 2020-05-22 18:07 | Surgery Progress Note ---
Surgery Progress Note Subjective Symptoms: other Objective Last 24 Hour Vital Signs Date Time Temp Pulse Resp B/P (MAP) Pulse Ox O2 Delivery O2 Flow Rate FiO2 05/22/20 17:08 134/82 05/22/20 16:06 93 05/22/20 16:00 Bi-pap 05/22/20 16:00 99.1 90 20 132/82 (99) 98 05/22/20 16:00 30 05/22/20 14:52 88 15 98 30 05/22/20 13:39 84 16 98 30 05/22/20 12:59 130/79 05/22/20 12:00 100.0 87 19 130/79 (96) 100 05/22/20 12:00 30 05/22/20 12:00 Bi-pap 05/22/20 12:00 90 05/22/20 10:43 89 15 100 30 05/22/20 09:00 30 05/22/20 08:30 86 15 99 30 05/22/20 08:24 91 126/78 05/22/20 08:24 91 126/78 05/22/20 08:00 8.0 35 05/22/20 08:00 97.8 91 22 126/80 (95) 100 05/22/20 08:00 Venturi Mask 8.0 05/22/20 07:48 92 05/22/20 07:42 100 Venturi Mask 8.0 35 05/22/20 05:15 132/78 05/22/20 04:00 97.7 86 22 134/85 (101) 100 05/22/20 04:00 Bi-pap 05/22/20 04:00 8.0 35 05/22/20 03:39 87 05/22/20 00:00 87 05/22/20 00:00 Bi-pap 05/22/20 00:00 98.2 89 20 140/80 (100) 100 05/21/20 20:18 80 131/74 05/21/20 20:00 Bi-pap 05/21/20 20:00 98.2 85 19 131/74 (93) 100 05/21/20 20:00 8.0 35 05/21/20 19:16 87 05/21/20 19:16 99 Venturi Mask 8.0 35 05/21/20 18:49 128/77 I&O Intake and Output 05/21/20 05/22/20 19:00 07:00 Intake Total 810 ml 695 ml Output Total 1000 ml 650 ml Balance -190 ml 45 ml Intake Free Water 210 ml 225 ml Tube Feeding 480 ml 440 ml Other 120 ml 30 ml Output Urine Total 1000 ml 650 ml # Bowel Movements 1 3 Dressing: saturated Cardiovascular: RSR Respiratory: decreased breath sounds Abdomen: non-tender, present bowel sounds Extremities: no tenderness, no cyanosis Laboratory Tests Test 05/22/20 08:09 Arterial Blood pH 7.374 (7.350-7.450) Arterial Blood Partial Pressure CO2 66.0 mmHg (35.0-45.0) *H Arterial Blood Partial Pressure O2 102.2 mmHg (75.0-100.0) H Arterial Blood HCO3 37.6 mmol/L (22.0-26.0) H Arterial Blood Oxygen Saturation 97.4 % (95-100) Arterial Blood Base Excess 9.7 (-2-2) *H Apollo Test Positive Plan Problems: (1) Deep tissue injury Assessment & Plan: Patient identified to have bilateral heel concerns for potential developing DTI. Soft boggy no fluid collection no acute injury at this time. Patient identified to have sacral erythema and skin changes with concerns for developing deep tissue injury as well. No open areas. No fluid collections no fluctuance no drainage. On the scrotum patient is identified to have edema erythema and some abrasion along with incontinence associated dermatitis in the area. Patient identified to have abrasion to the nasal brim secondary to a facemask placement. Patient is chronically ill elderly and malnourished. Wound evaluated and care plan initiated. Treatment plan Apply skin protectant to the nasal bridge followed by foam dressing prior to facemask placement. Patient currently requires oxygen supplementation and therefore important to ensure receiving such along with protection of underlying epidermis. Apply OPTi foam to heels change every 3 days offload pressure with pillows Apply OPTi foam to sacral area monitor for incontinence change accordingly every 3 days and as needed saturation. Soft towel under scrotum. Continue with respiratory supportive care Turn every 2 hours Offload pressure with pillows Continue tube feeds nutritional optimization we will follow with recommendations thank you for let me participate patient's care (2) Dementia with behavioral problem (3) UTI (urinary tract infection) (4) Elevated troponin I level (5) AMS (altered mental status) (6) Dysphagia Assessment & Plan: DAILY ESTIMATED NEEDS: Needs based on Pulmonary, cardiac, 62kg 25-30 kcals/kg 4825-4677 total kcals 1-1.5 g protein/kg 62-93 g total protein 25-30 mL/kg 2080-4872 total fluid mLs NUTRITION DIAGNOSIS: Swallowing difficulty r/t dysphagia as evidenced by pt is PEG dep, currently on continuous BIPAP. CURRENT TF: Glucerna 1.5 @ 40ml/hr ENTERAL NUTRITION RECOMMENDATIONS: Glucerna 1.5 goal of 45ml/hr x 24 hrs to provide 1080ml, 1620 kcal, 89g pro, 820ml free water * Maintain carb controlled TF of Glucerna 1.5 while CO2 critically elevated * As medically appropriate, increase goal rate to 45ml/hr x 24 hrs to better meet nutritional needs. * HOB over 30 degrees/ water flush per MD ADDITIONAL RECOMMENDATIONS: 1) Monitor BIPAP usage, safety of GT feeds -> continuous BIPAP at this time 2) Lytes daily, replete as needed Current TF Glucerna 1.5 @goal of 40ml/hr provides 2419mg K/day 3) Calibrated bed scale wts (Bed scale shows uptrend: 65kg-> 71kg) 4) Rec HgA1C for eval of BG control 5) F/up w/ WC eval: Continue MVI and Vit C (7) Seizure (8) NSTEMI (non-ST elevated myocardial infarction) (9) Respiratory insufficiency Assessment & Plan: constant required bipap ? trach dnr/dni discussed with pcp and Benitez Jefferson May 22, 2020 18:07
[2020-05-22 20:00] VITALS: BP_SYST 115; BP_SYST 145; BP_DIAS 68; BP_DIAS 70
[2020-05-22] MEDS: Tamsulosin 0.4mg cap ORAL SCH (20:34)
[2020-05-23] VITALS (7 sets, daily range): BP systolic 115–143; BP diastolic 67–75
[2020-05-23 05:14] LABS: ALANINE AMINOTRANSFERASE 78 U/L (12-78); ALBUMIN 3.2 G/DL (3.4-5.0); ALBUMIN/GLOBULIN RATIO 0.6 (1.0-2.7); ALKALINE PHOSPHATASE 112 U/L (46-116); ANION GAP 3 mmol/L (5-15); ASPARTATE AMINO TRANSFERASE 45 U/L (15-37); BILIRUBIN,TOTAL 0.3 MG/DL (0.2-1.0); BLOOD UREA NITROGEN 88 mg/dL (7-18); CALCIUM 9.5 MG/DL (8.5-10.1); CARBON DIOXIDE 40 MMOL/L (21-32); CHLORIDE 113 MMOL/L (98-107); CREATININE 1.1 MG/DL (0.55-1.30); SODIUM 156 MMOL/L (136-145)
[2020-05-23] MEDS: Solu-MEDROL 40mg Inj IVP SCH ×2 (05:20→20:46)
[2020-05-23] MEDS: Nitroglycerin 2% oint pkt TOPIC SCH ×3 (05:21→17:35)
[2020-05-23] MEDS: Aspirin Baby 81mg GT SCH (08:34)
[2020-05-23] MEDS: Docusate 100mg/10ml Liq GT SCH ×2 (08:34→17:35)
[2020-05-23] MEDS: levETIRAcetam 500mg/5ml Liquid GT SCH (08:36)
[2020-05-23] MEDS: Multivitamins W/Minerals 15 ML UDC GT SCH (08:37)
[2020-05-23] MEDS: Ascorbic Acid 500mg tab GT SCH (08:37)
[2020-05-23] MEDS: Heparin 5000 units/ml inj SUBQ SCH ×2 (08:38→20:47)
--- NOTE | 2020-05-23 11:14 | Infectious Diseases Prog Note ---
Assessment/Plan Assessment/Plan antibiotics : none A 1. Urinary tract infection with E. coli s/p rx 2. MRSA nasal colonization. 3. CHF. 4. COPD. 5. Seizures. 6. Dementia. 7. He is negative for COVID-19. P 1. continue off antibiotics Subjective ROS Limited/Unobtainable: Yes Allergies: Coded Allergies: PENICILLINS (Unverified Allergy, Unknown, 08/11/19) Objective Last 24 Hour Vital Signs Date Time Temp Pulse Resp B/P (MAP) Pulse Ox O2 Delivery O2 Flow Rate FiO2 05/23/20 08:39 92 128/74 05/23/20 08:00 98.8 92 18 128/74 (92) 99 05/23/20 08:00 Bi-pap 05/23/20 08:00 89 05/23/20 07:50 8.0 05/23/20 07:47 65 99 05/23/20 07:00 99 Bi-Pap 30 05/23/20 07:00 83 21 97 30 05/23/20 05:21 117/72 05/23/20 05:05 88 23 99 30 05/23/20 04:00 86 05/23/20 04:00 30 05/23/20 04:00 Bi-pap 05/23/20 04:00 98.6 86 20 117/72 (87) 99 05/23/20 02:42 89 21 98 30 05/23/20 00:44 85 17 98 30 05/23/20 00:00 Bi-pap 05/23/20 00:00 99.3 86 18 115/67 (83) 99 05/22/20 22:35 88 23 99 30 05/22/20 21:13 88 19 98 30 05/22/20 20:34 85 115/68 05/22/20 20:00 Bi-pap 05/22/20 20:00 99.0 85 18 115/68 (84) 99 05/22/20 20:00 30 05/22/20 20:00 84 05/22/20 19:25 87 21 99 30 05/22/20 19:14 99 Bi-Pap 30 05/22/20 17:08 134/82 05/22/20 16:06 93 05/22/20 16:00 Bi-pap 05/22/20 16:00 99.1 90 20 132/82 (99) 98 05/22/20 16:00 30 05/22/20 14:52 88 15 98 30 05/22/20 13:39 84 16 98 30 05/22/20 12:59 130/79 05/22/20 12:00 100.0 87 19 130/79 (96) 100 05/22/20 12:00 30 05/22/20 12:00 Bi-pap 05/22/20 12:00 90 Height (Feet): 5 Height (Inches): 6.00 Weight (Pounds): 137 HEENT: other - on bipap Respiratory/Chest: lungs clear Cardiovascular: normal rate, regular rhythm, no gallop/murmur Abdomen: soft, non tender, other - GT Extremities: no edema Laboratory Tests Test 05/23/20 03:35 Sodium Level 156 MMOL/L (136-145) H Potassium Level 4.0 MMOL/L (3.5-5.1) Chloride Level 113 MMOL/L (98-107) H Carbon Dioxide Level 40 MMOL/L (21-32) H Anion Gap 3 mmol/L (5-15) L Blood Urea Nitrogen 88 mg/dL (7-18) H Creatinine 1.1 MG/DL (0.55-1.30) Estimat Glomerular Filtration Rate > 60 mL/min (>60) Glucose Level 201 MG/DL (74-106) H Calcium Level 9.5 MG/DL (8.5-10.1) Total Bilirubin 0.3 MG/DL (0.2-1.0) Aspartate Amino Transf (AST/SGOT) 45 U/L (15-37) H Alanine Aminotransferase (ALT/SGPT) 78 U/L (12-78) Alkaline Phosphatase 112 U/L (46-116) Total Protein 8.3 G/DL (6.4-8.2) H Albumin 3.2 G/DL (3.4-5.0) L Globulin 5.1 g/dL Albumin/Globulin Ratio 0.6 (1.0-2.7) L Current Medications Medications (Trade) Dose Ordered Sig/Mayela Route PRN Reason Start Time Stop Time Status Last Admin Dose Admin Acetaminophen (Tylenol) 650 mg Q4H PRN GT back pain 05/06/20 15:15 06/05/20 15:14 05/16/20 07:27 Acetazolamide (Diamox) 250 mg TWICE A DAY GT 05/13/20 09:00 06/12/20 08:59 05/23/20 08:36 Amlodipine Besylate (Norvasc) 5 mg DAILY GT 05/07/20 09:00 06/06/20 08:59 05/22/20 08:24 Ascorbic Acid (Vitamin C) 500 mg DAILY GT 05/07/20 09:00 06/06/20 08:59 05/23/20 08:37 Aspirin (ASA) 81 mg DAILY GT 05/07/20 09:00 06/21/20 08:59 05/23/20 08:34 Carvedilol (Coreg) 3.125 mg EVERY 12 HOURS GT 05/07/20 09:00 06/06/20 08:59 05/23/20 08:39 Clonidine HCl (Catapres Tab) 0.1 mg Q4H PRN ORAL SBP >160 05/08/20 22:15 08/06/20 22:14 Docusate Sodium (Colace) 200 mg BID GT 05/06/20 18:00 06/05/20 17:59 05/23/20 08:34 Heparin Sodium (Porcine) (Heparin 5000 units/ml) 5,000 units EVERY 12 HOURS SUBQ 05/08/20 09:00 06/22/20 08:59 05/23/20 08:38 Levetiracetam (Keppra) 250 mg DAILY GT 05/19/20 15:11 06/18/20 15:10 05/23/20 08:36 Methylprednisolone Sodium Succinate (Solu-MEDROL) 40 mg EVERY 8 HOURS IVP 05/20/20 14:15 08/18/20 14:14 05/23/20 05:20 Multivitamins (Multivitamins W/ Minerals 15ml Liquid) 5 ml DAILY GT 05/07/20 09:00 06/06/20 08:59 05/23/20 08:37 Nitroglycerin (Nitro-Bid) 1 inch TID@0600,1200,1800 TOPIC 05/16/20 18:00 06/15/20 17:59 05/23/20 05:21 Potassium Chloride (K-Dur) 20 meq DAILY GT 05/13/20 09:00 08/11/20 08:59 05/23/20 08:36 Tamsulosin HCl (Flomax) 0.4 mg BEDTIME ORAL 05/06/20 21:00 06/05/20 20:59 05/22/20 20:34 Josué Light MD May 23, 2020 11:14
--- NOTE | 2020-05-23 13:53 | General Progress Note ---
Subjective ROS Limited/Unobtainable: No Constitutional: Reports: malaise, weakness HEENT: Reports: no symptoms Cardiovascular: Reports: no symptoms Respiratory: Reports: cough, shortness of breath, sputum Gastrointestinal/Abdominal: Reports: difficulty swallowing Genitourinary: Reports: no symptoms Neurologic/Psychiatric: Reports: pre-existing deficit, seizure Endocrine: Reports: no symptoms Hematologic/Lymphatic: Reports: no symptoms Allergies: Coded Allergies: PENICILLINS (Unverified Allergy, Unknown, 08/11/19) All Systems: reviewed and negative except above Subjective stable on bipap. awake. lethargic. no fever or chills. no sob. mild congestion. tolerating feeds. labs noted. Objective Last 24 Hour Vital Signs Date Time Temp Pulse Resp B/P (MAP) Pulse Ox O2 Delivery O2 Flow Rate FiO2 05/23/20 12:48 116/67 05/23/20 12:11 97.1 92 17 116/67 (83) 97 05/23/20 12:00 86 05/23/20 08:39 92 128/74 05/23/20 08:00 98.8 92 18 128/74 (92) 99 05/23/20 08:00 Bi-pap 05/23/20 08:00 89 05/23/20 07:50 8.0 35 05/23/20 07:47 65 99 05/23/20 07:00 99 Bi-Pap 30 05/23/20 07:00 83 21 97 30 05/23/20 05:21 117/72 05/23/20 05:05 88 23 99 30 05/23/20 04:00 86 05/23/20 04:00 30 05/23/20 04:00 Bi-pap 05/23/20 04:00 98.6 86 20 117/72 (87) 99 05/23/20 02:42 89 21 98 30 05/23/20 00:44 85 17 98 30 05/23/20 00:00 Bi-pap 05/23/20 00:00 99.3 86 18 115/67 (83) 99 05/22/20 22:35 88 23 99 30 05/22/20 21:13 88 19 98 30 05/22/20 20:34 85 115/68 05/22/20 20:00 Bi-pap 05/22/20 20:00 99.0 85 18 115/68 (84) 99 05/22/20 20:00 30 05/22/20 20:00 84 05/22/20 19:25 87 21 99 30 05/22/20 19:14 99 Bi-Pap 30 05/22/20 17:08 134/82 05/22/20 16:06 93 05/22/20 16:00 Bi-pap 05/22/20 16:00 99.1 90 20 132/82 (99) 98 05/22/20 16:00 30 05/22/20 14:52 88 15 98 30 Intake and Output 05/22/20 05/23/20 19:00 07:00 Intake Total 650 ml 80 ml Output Total 350 ml 250 ml Balance 300 ml -170 ml Intake Free Water 150 ml Tube Feeding 440 ml 80 ml Other 60 ml Output Urine Total 350 ml 250 ml # Bowel Movements 2 4 Laboratory Tests 05/23/20 03:35: Sodium Level 156H, Potassium Level 4.0, Chloride Level 113H, Carbon Dioxide Level 40H, Anion Gap 3L, Blood Urea Nitrogen 88H, Creatinine 1.1, Estimat Glomerular Filtration Rate > 60, Glucose Level 201H, Calcium Level 9.5, Total Bilirubin 0.3, Aspartate Amino Transf (AST/SGOT) 45H, Alanine Aminotransferase (ALT/SGPT) 78, Alkaline Phosphatase 112, Total Protein 8.3H, Albumin 3.2L, Globulin 5.1, Albumin/Globulin Ratio 0.6L Height (Feet): 5 Height (Inches): 6.00 Weight (Pounds): 137 Objective General Appearance: WD/WN, alert, confused EENT: normal ENT inspection Neck: normal alignment Cardiovascular: normal rate Respiratory/Chest: chest wall non-tender, lungs clear, normal breath sounds Abdomen: normal bowel sounds, non tender, soft, no organomegaly Edema: no edema noted Arm (L), no edema noted Arm (R) Neurologic: alert, disoriented Assessment/Plan Problem List: (1) Seizure ICD Codes: R56.9 - Unspecified convulsions SNOMED: 66202067 (2) Dysphagia ICD Codes: R13.10 - Dysphagia, unspecified SNOMED: 29949594, 140926226 (3) UTI (urinary tract infection) ICD Codes: N39.0 - Urinary tract infection, site not specified SNOMED: 52012431 (4) Elevated troponin I level ICD Codes: R77.8 - Other specified abnormalities of plasma proteins SNOMED: 964860392 (5) AMS (altered mental status) ICD Codes: R41.82 - Altered mental status, unspecified SNOMED: 356682533 (6) NSTEMI (non-ST elevated myocardial infarction) ICD Codes: I21.4 - Non-ST elevation (NSTEMI) myocardial infarction SNOMED: 81075969 Status: stable Assessment/Plan: bipap qhs nd prn venti mask as tolerated monitor abg wean o2/bipap as able iv steroids- wean tube feeds monitor residual monitor for vomiting decrease sz iv abx diuresis- hold lasix cxr reviewed- stable monitor labs anxiolytics as needed o2 resp rx dvt/stress ulcer prophylaxis. wean steroids hypotonic ivf ordered Jorge Kee MD May 23, 2020 13:53
--- NOTE | 2020-05-23 14:21 | Surgery Progress Note ---
Surgery Progress Note Subjective Symptoms: improved, tolerating diet, passing flatus Objective Last 24 Hour Vital Signs Date Time Temp Pulse Resp B/P (MAP) Pulse Ox O2 Delivery O2 Flow Rate FiO2 05/23/20 12:48 116/67 05/23/20 12:11 97.1 92 17 116/67 (83) 97 05/23/20 12:00 86 05/23/20 08:39 92 128/74 05/23/20 08:00 98.8 92 18 128/74 (92) 99 05/23/20 08:00 Bi-pap 05/23/20 08:00 89 05/23/20 07:50 8.0 35 05/23/20 07:47 65 99 05/23/20 07:00 99 Bi-Pap 30 05/23/20 07:00 83 21 97 30 05/23/20 05:21 117/72 05/23/20 05:05 88 23 99 30 05/23/20 04:00 86 05/23/20 04:00 30 05/23/20 04:00 Bi-pap 05/23/20 04:00 98.6 86 20 117/72 (87) 99 05/23/20 02:42 89 21 98 30 05/23/20 00:44 85 17 98 30 05/23/20 00:00 Bi-pap 05/23/20 00:00 99.3 86 18 115/67 (83) 99 05/22/20 22:35 88 23 99 30 05/22/20 21:13 88 19 98 30 05/22/20 20:34 85 115/68 05/22/20 20:00 Bi-pap 05/22/20 20:00 99.0 85 18 115/68 (84) 99 05/22/20 20:00 30 05/22/20 20:00 84 05/22/20 19:25 87 21 99 30 05/22/20 19:14 99 Bi-Pap 30 05/22/20 17:08 134/82 05/22/20 16:06 93 05/22/20 16:00 Bi-pap 05/22/20 16:00 99.1 90 20 132/82 (99) 98 05/22/20 16:00 30 05/22/20 14:52 88 15 98 30 I&O Intake and Output 05/22/20 05/23/20 19:00 07:00 Intake Total 650 ml 80 ml Output Total 350 ml 250 ml Balance 300 ml -170 ml Intake Free Water 150 ml Tube Feeding 440 ml 80 ml Other 60 ml Output Urine Total 350 ml 250 ml # Bowel Movements 2 4 Dressing: saturated Cardiovascular: RSR Respiratory: decreased breath sounds Abdomen: non-tender, present bowel sounds Extremities: no edema, no tenderness, no cyanosis Laboratory Tests Test 05/23/20 03:35 Sodium Level 156 MMOL/L (136-145) H Potassium Level 4.0 MMOL/L (3.5-5.1) Chloride Level 113 MMOL/L (98-107) H Carbon Dioxide Level 40 MMOL/L (21-32) H Anion Gap 3 mmol/L (5-15) L Blood Urea Nitrogen 88 mg/dL (7-18) H Creatinine 1.1 MG/DL (0.55-1.30) Estimat Glomerular Filtration Rate > 60 mL/min (>60) Glucose Level 201 MG/DL (74-106) H Calcium Level 9.5 MG/DL (8.5-10.1) Total Bilirubin 0.3 MG/DL (0.2-1.0) Aspartate Amino Transf (AST/SGOT) 45 U/L (15-37) H Alanine Aminotransferase (ALT/SGPT) 78 U/L (12-78) Alkaline Phosphatase 112 U/L (46-116) Total Protein 8.3 G/DL (6.4-8.2) H Albumin 3.2 G/DL (3.4-5.0) L Globulin 5.1 g/dL Albumin/Globulin Ratio 0.6 (1.0-2.7) L Plan Problems: (1) Deep tissue injury Assessment & Plan: Patient identified to have bilateral heel concerns for potential developing DTI. Soft boggy no fluid collection no acute injury at this time. Patient identified to have sacral erythema and skin changes with concerns for developing deep tissue injury as well. No open areas. No fluid collections no fluctuance no drainage. On the scrotum patient is identified to have edema erythema and some abrasion along with incontinence associated dermatitis in the area. Patient identified to have abrasion to the nasal brim secondary to a facemask placement. Patient is chronically ill elderly and malnourished. Wound evaluated and care plan initiated. Treatment plan Apply skin protectant to the nasal bridge followed by foam dressing prior to facemask placement. Patient currently requires oxygen supplementation and therefore important to ensure receiving such along with protection of underlying epidermis. Apply OPTi foam to heels change every 3 days offload pressure with pillows Apply OPTi foam to sacral area monitor for incontinence change accordingly every 3 days and as needed saturation. Soft towel under scrotum. Continue with respiratory supportive care Turn every 2 hours Offload pressure with pillows Continue tube feeds nutritional optimization we will follow with recommendations thank you for let me participate patient's care (2) Dementia with behavioral problem (3) UTI (urinary tract infection) (4) Elevated troponin I level (5) AMS (altered mental status) (6) Dysphagia Assessment & Plan: DAILY ESTIMATED NEEDS: Needs based on Pulmonary, cardiac, 62kg 25-30 kcals/kg 4849-6517 total kcals 1-1.5 g protein/kg 62-93 g total protein 25-30 mL/kg 7758-9714 total fluid mLs NUTRITION DIAGNOSIS: Swallowing difficulty r/t dysphagia as evidenced by pt is PEG dep, currently on continuous BIPAP. CURRENT TF: Glucerna 1.5 @ 40ml/hr ENTERAL NUTRITION RECOMMENDATIONS: Glucerna 1.5 goal of 45ml/hr x 24 hrs to provide 1080ml, 1620 kcal, 89g pro, 820ml free water * Maintain carb controlled TF of Glucerna 1.5 while CO2 critically elevated * As medically appropriate, increase goal rate to 45ml/hr x 24 hrs to better meet nutritional needs. * HOB over 30 degrees/ water flush per MD ADDITIONAL RECOMMENDATIONS: 1) Monitor BIPAP usage, safety of GT feeds -> continuous BIPAP at this time 2) Lytes daily, replete as needed Current TF Glucerna 1.5 @goal of 40ml/hr provides 2419mg K/day 3) Calibrated bed scale wts (Bed scale shows uptrend: 65kg-> 71kg) 4) Rec HgA1C for eval of BG control 5) F/up w/ WC eval: Continue MVI and Vit C (7) Seizure (8) NSTEMI (non-ST elevated myocardial infarction) (9) Respiratory insufficiency Assessment & Plan: constant required bipap ? trach dnr/dni discussed with pcp and lonniem Benitez Mayorga May 23, 2020 14:21
--- NOTE | 2020-05-23 14:44 | Pulmonology Progress Note ---
Subjective ROS Limited/Unobtainable: Yes Constitutional: Denies: fever Allergies: Coded Allergies: PENICILLINS (Unverified Allergy, Unknown, 08/11/19) All Systems: reviewed and negative except above Subjective care noted on BIPAP when seen no distress imaging noted Objective Last 24 Hour Vital Signs Date Time Temp Pulse Resp B/P (MAP) Pulse Ox O2 Delivery O2 Flow Rate FiO2 05/23/20 12:48 116/67 05/23/20 12:11 97.1 92 17 116/67 (83) 97 05/23/20 12:00 86 05/23/20 08:39 92 128/74 05/23/20 08:00 98.8 92 18 128/74 (92) 99 05/23/20 08:00 Bi-pap 05/23/20 08:00 89 05/23/20 07:50 8.0 35 05/23/20 07:47 65 99 05/23/20 07:00 99 Bi-Pap 30 05/23/20 07:00 83 21 97 30 05/23/20 05:21 117/72 05/23/20 05:05 88 23 99 30 05/23/20 04:00 86 05/23/20 04:00 30 05/23/20 04:00 Bi-pap 05/23/20 04:00 98.6 86 20 117/72 (87) 99 05/23/20 02:42 89 21 98 30 05/23/20 00:44 85 17 98 30 05/23/20 00:00 Bi-pap 05/23/20 00:00 99.3 86 18 115/67 (83) 99 05/22/20 22:35 88 23 99 30 05/22/20 21:13 88 19 98 30 05/22/20 20:34 85 115/68 05/22/20 20:00 Bi-pap 05/22/20 20:00 99.0 85 18 115/68 (84) 99 05/22/20 20:00 30 05/22/20 20:00 84 05/22/20 19:25 87 21 99 30 05/22/20 19:14 99 Bi-Pap 30 05/22/20 17:08 134/82 05/22/20 16:06 93 05/22/20 16:00 Bi-pap 05/22/20 16:00 99.1 90 20 132/82 (99) 98 05/22/20 16:00 30 05/22/20 14:52 88 15 98 30 Intake and Output 0 05/22/20 05/23/20 19:00 07:00 Intake Total 650 ml 80 ml Output Total 350 ml 250 ml Balance 300 ml -170 ml Intake Free Water 150 ml Tube Feeding 440 ml 80 ml Other 60 ml Output Urine Total 350 ml 250 ml # Bowel Movements 2 4 Objective WDWN NAD reduced breath sounds bilaterally without rhonchi [id number] without MRG NABS nontender no CC mild edema nonfocal off BIPAP reduced LOC Laboratory Tests 05/23/20 03:35: Sodium Level 156H, Potassium Level 4.0, Chloride Level 113H, Carbon Dioxide Level 40H, Anion Gap 3L, Blood Urea Nitrogen 88H, Creatinine 1.1, Estimat Glomerular Filtration Rate > 60, Glucose Level 201H, Calcium Level 9.5, Total Bilirubin 0.3, Aspartate Amino Transf (AST/SGOT) 45H, Alanine Aminotransferase (ALT/SGPT) 78, Alkaline Phosphatase 112, Total Protein 8.3H, Albumin 3.2L, Globulin 5.1, Albumin/Globulin Ratio 0.6L Current Medications Medications (Trade) Dose Ordered Sig/Mayela Route PRN Reason Start Time Stop Time Status Last Admin Dose Admin Acetaminophen (Tylenol) 650 mg Q4H PRN GT back pain 05/06/20 15:15 06/05/20 15:14 05/16/20 07:27 Acetazolamide (Diamox) 250 mg TWICE A DAY GT 05/13/20 09:00 06/12/20 08:59 05/23/20 08:36 Amlodipine Besylate (Norvasc) 5 mg DAILY GT 05/07/20 09:00 06/06/20 08:59 05/22/20 08:24 Ascorbic Acid (Vitamin C) 500 mg DAILY GT 05/07/20 09:00 06/06/20 08:59 05/23/20 08:37 Aspirin (ASA) 81 mg DAILY GT 05/07/20 09:00 06/21/20 08:59 05/23/20 08:34 Carvedilol (Coreg) 3.125 mg EVERY 12 HOURS GT 05/07/20 09:00 06/06/20 08:59 05/23/20 08:39 Clonidine HCl (Catapres Tab) 0.1 mg Q4H PRN ORAL SBP >160 05/08/20 22:15 08/06/20 22:14 Dextrose 1,000 ml @ 75 mls/hr [id number] IV 05/23/20 14:00 06/22/20 13:59 05/23/20 14:19 Docusate Sodium (Colace) 200 mg BID GT 05/06/20 18:00 06/05/20 17:59 05/23/20 08:34 Heparin Sodium (Porcine) (Heparin 5000 units/ml) 5,000 units EVERY 12 HOURS SUBQ 05/08/20 09:00 06/22/20 08:59 05/23/20 08:38 Levetiracetam (Keppra) 250 mg DAILY GT 05/19/20 15:11 06/18/20 15:10 05/23/20 08:36 Methylprednisolone Sodium Succinate (Solu-MEDROL) 40 mg EVERY 12 HOURS IVP 05/23/20 21:00 08/21/20 20:59 Multivitamins (Multivitamins W/ Minerals 15ml Liquid) 5 ml DAILY GT 05/07/20 09:00 06/06/20 08:59 05/23/20 08:37 Nitroglycerin (Nitro-Bid) 1 inch TID@0600,1200,1800 TOPIC 05/16/20 18:00 06/15/20 17:59 05/23/20 12:48 Potassium Chloride (K-Dur) 20 meq DAILY GT 05/13/20 09:00 08/11/20 08:59 05/23/20 08:36 Tamsulosin HCl (Flomax) 0.4 mg BEDTIME ORAL 05/06/20 21:00 06/05/20 20:59 05/22/20 20:34 Assessment/Plan Assessment/Plan ASSESSMENT: Pulmonary congestion, respiratory failure, hypoxemia dementia, G-tube, seizure disorder, congestive heart failure, COPD sepsis, and acute CT. acute on chronic CO2 retention PLAN: maintain oxygen and need for BIPAP; repeat ABG noted. Breathing treat ments and aspiration precautions. Monitor blood gases for change.keep negative. seizure medications. feeds and monitor residuals; DNR noted DVT prophylaxis hope to maintain off BIPAP ABG in am remains guarded d/w primary impression, plan, and exam edited and reviewed in detail care discussed with Attila Yuan MD May 23, 2020 14:44
[2020-05-23] MEDS: Tamsulosin 0.4mg cap ORAL SCH (20:46)
[2020-05-24] VITALS: BP 113/73
[2020-05-24 04:00] VITALS: BP 123/71
[2020-05-24] MEDS: Nitroglycerin 2% oint pkt TOPIC SCH ×3 (05:07→17:14)
[2020-05-24 05:32] LABS: ANION GAP 3 mmol/L (5-15); BLOOD UREA NITROGEN 101 mg/dL (7-18); CALCIUM 9.3 MG/DL (8.5-10.1); CARBON DIOXIDE 38 MMOL/L (21-32); CHLORIDE 115 MMOL/L (98-107); CREATININE 1.1 MG/DL (0.55-1.30); SODIUM 155 MMOL/L (136-145)
[2020-05-24 08:00] VITALS: BP 136/71
[2020-05-24] MEDS: levETIRAcetam 500mg/5ml Liquid GT SCH (08:25)
[2020-05-24] MEDS: Ascorbic Acid 500mg tab GT SCH (08:25)
[2020-05-24] MEDS: Aspirin Baby 81mg GT SCH (08:25)
[2020-05-24] MEDS: Docusate 100mg/10ml Liq GT SCH ×2 (08:26→17:14)
[2020-05-24] MEDS: Multivitamins W/Minerals 15 ML UDC GT SCH (08:26)
[2020-05-24] MEDS: Solu-MEDROL 40mg Inj IVP SCH ×2 (08:26→14:58)
[2020-05-24] MEDS: Heparin 5000 units/ml inj SUBQ SCH ×2 (08:31→20:24)
--- NOTE | 2020-05-24 11:44 | Pulmonology Progress Note ---
Subjective ROS Limited/Unobtainable: No Constitutional: Denies: fever Allergies: Coded Allergies: PENICILLINS (Unverified Allergy, Unknown, 08/11/19) All Systems: reviewed and negative except above Objective Last 24 Hour Vital Signs Date Time Temp Pulse Resp B/P (MAP) Pulse Ox O2 Delivery O2 Flow Rate FiO2 05/24/20 08:31 93 136/71 05/24/20 08:26 93 136/71 05/24/20 08:01 99 05/24/20 08:00 97.5 93 21 136/71 (92) 97 05/24/20 08:00 8.0 35 05/24/20 08:00 Venturi Mask 05/24/20 07:55 99 Venturi Mask 8.0 30 05/24/20 05:07 118/73 05/24/20 04:00 Venturi Mask 05/24/20 04:00 98.2 77 20 123/71 (88) 98 05/24/20 04:00 8.0 35 05/24/20 03:45 95 05/24/20 03:06 90 27 97 05/24/20 03:00 8.0 35 05/24/20 02:45 91 30 97 30 05/24/20 00:51 92 20 97 30 05/24/20 00:00 Venturi Mask 05/24/20 00:00 30 05/24/20 00:00 97.9 92 19 113/73 (86) 99 05/23/20 23:33 87 05/23/20 23:00 30 05/23/20 22:50 87 29 97 30 05/23/20 20:47 94 127/75 05/23/20 20:00 Venturi Mask 05/23/20 20:00 97.7 94 22 127/75 (92) 98 05/23/20 20:00 8.0 35 05/23/20 19:28 94 05/23/20 18:55 98 Venturi Mask 8.0 30 05/23/20 17:35 143/67 05/23/20 16:00 8.0 35 05/23/20 16:00 Venturi Mask 05/23/20 16:00 93 05/23/20 16:00 98.1 63 17 143/67 (92) 100 05/23/20 12:48 116/67 05/23/20 12:11 97.1 92 17 116/67 (83) 97 05/23/20 12:00 8.0 35 05/23/20 12:00 86 05/23/20 12:00 Venturi Mask Intake and Output 05/23/20 05/24/20 19:00 07:00 Intake Total 1031.25 ml 1619 ml Output Total 450 ml Balance 1031.25 ml 1169 ml Intake Free Water 225 ml 225 ml IV Total 276.25 ml 874 ml Tube Feeding 480 ml 520 ml Other 50 ml Output Urine Total 450 ml # Bowel Movements 2 1 Laboratory Tests 05/24/20 03:25: Sodium Level 155H, Potassium Level 4.0, Chloride Level 115H, Carbon Dioxide Level 38H, Anion Gap 3L, Blood Urea Nitrogen 101H, Creatinine 1.1, Estimat Glomerular Filtration Rate > 60, Glucose Level 211H, Calcium Level 9.3 Current Medications Medications (Trade) Dose Ordered Sig/Mayela Route PRN Reason Start Time Stop Time Status Last Admin Dose Admin Acetaminophen (Tylenol) 650 mg Q4H PRN GT back pain 05/06/20 15:15 06/05/20 15:14 05/16/20 07:27 Acetazolamide (Diamox) 250 mg TWICE A DAY GT 05/13/20 09:00 06/12/20 08:59 05/24/20 08:26 Amlodipine Besylate (Norvasc) 5 mg DAILY GT 05/07/20 09:00 06/06/20 08:59 05/24/20 08:31 Ascorbic Acid (Vitamin C) 500 mg DAILY GT 05/07/20 09:00 06/06/20 08:59 05/24/20 08:25 Aspirin (ASA) 81 mg DAILY GT 05/07/20 09:00 06/21/20 08:59 05/24/20 08:25 Carvedilol (Coreg) 3.125 mg EVERY 12 HOURS GT 05/07/20 09:00 06/06/20 08:59 05/24/20 08:26 Clonidine HCl (Catapres Tab) 0.1 mg Q4H PRN ORAL SBP >160 05/08/20 22:15 08/06/20 22:14 Dextrose 1,000 ml @ 75 mls/hr [id number] IV 05/23/20 14:00 06/22/20 13:59 05/24/20 01:21 Docusate Sodium (Colace) 200 mg BID GT 05/06/20 18:00 06/05/20 17:59 05/24/20 08:26 Heparin Sodium (Porcine) (Heparin 5000 units/ml) 5,000 units EVERY 12 HOURS SUBQ 05/08/20 09:00 06/22/20 08:59 05/24/20 08:31 Levetiracetam (Keppra) 250 mg DAILY GT 05/19/20 15:11 06/18/20 15:10 05/24/20 08:25 Methylprednisolone Sodium Succinate (Solu-MEDROL) 40 mg EVERY 12 HOURS IVP 05/23/20 21:00 08/21/20 20:59 05/24/20 08:26 Multivitamins (Multivitamins W/ Minerals 15ml Liquid) 5 ml DAILY GT 05/07/20 09:00 06/06/20 08:59 05/24/20 08:26 Nitroglycerin (Nitro-Bid) 1 inch TID@0600,1200,1800 TOPIC 05/16/20 18:00 06/15/20 17:59 05/24/20 05:07 Potassium Chloride (K-Dur) 20 meq DAILY GT 05/13/20 09:00 08/11/20 08:59 05/24/20 08:25 Tamsulosin HCl (Flomax) 0.4 mg BEDTIME ORAL 05/06/20 21:00 06/05/20 20:59 05/23/20 20:46 Assessment/Plan Assessment/Plan Pulmonary Progress Note Subjective ROS Limited/Unobtainable: Yes Constitutional: Denies: fever Allergies: Coded Allergies: PENICILLINS (Unverified Allergy, Unknown, 08/11/19) All Systems: reviewed and negative except above Subjective care noted on BIPAP PRN no distress imaging noted medications reviewed Objective Vital Signs noted Objective WDWN NAD reduced breath sounds bilaterally without rhonchi [id number] without MRG NABS nontender no CC mild edema nonfocal off BIPAP reduced LOC Laboratory Tests noted Assessment/Plan Assessment/Plan ASSESSMENT: Pulmonary congestion, respiratory failure, hypoxemia dementia, G-tube, seizure disorder, congestive heart failure, COPD sepsis, and acute PR. acute on chronic CO2 retention PLAN: maintain oxygen and need for BIPAP; repeat ABG noted. Breathing treatments and aspiration precautions. Monitor blood gases for change.keep negative. seizure medications. feeds and monitor residuals; DNR noted DVT prophylaxis hope to maintain off BIPAP ABG in am remains guarded d/w primary impression, plan, and exam edited and reviewed in detail care discussed with Real Ambrocio MD May 24, 2020 11:44
[2020-05-24 12:00] VITALS: BP 134/79
--- NOTE | 2020-05-24 14:19 | General Progress Note ---
Subjective ROS Limited/Unobtainable: Yes Constitutional: Reports: malaise, weakness HEENT: Reports: no symptoms Cardiovascular: Reports: no symptoms Respiratory: Reports: cough, shortness of breath, SOB at rest, sputum Gastrointestinal/Abdominal: Reports: difficulty swallowing Genitourinary: Reports: no symptoms Neurologic/Psychiatric: Reports: pre-existing deficit, seizure Endocrine: Reports: no symptoms Hematologic/Lymphatic: Reports: no symptoms Allergies: Coded Allergies: PENICILLINS (Unverified Allergy, Unknown, 08/11/19) All Systems: reviewed and negative except above Subjective on venti mask. pulling mask off. on bipap at night. awake. no fever or chills. no sob. mild congestion. tolerating feeds. labs noted. Objective Last 24 Hour Vital Signs Date Time Temp Pulse Resp B/P (MAP) Pulse Ox O2 Delivery O2 Flow Rate FiO2 05/24/20 12:00 Venturi Mask 05/24/20 12:00 2.0 05/24/20 12:00 98.7 84 18 134/79 (97) 97 05/24/20 12:00 84 05/24/20 11:48 136/71 05/24/20 09:59 95 20 99 Nasal Cannula 3.0 32 05/24/20 08:31 93 136/71 05/24/20 08:26 93 136/71 05/24/20 08:01 99 05/24/20 08:00 97.5 93 21 136/71 (92) 97 05/24/20 08:00 8.0 35 05/24/20 08:00 Venturi Mask 05/24/20 07:55 99 Venturi Mask 8.0 30 05/24/20 05:07 118/73 05/24/20 04:00 Venturi Mask 05/24/20 04:00 98.2 77 20 123/71 (88) 98 05/24/20 04:00 8.0 35 05/24/20 03:45 95 05/24/20 03:06 90 27 97 05/24/20 03:00 8.0 35 05/24/20 02:45 91 30 97 30 05/24/20 00:51 92 20 97 30 05/24/20 00:00 Venturi Mask 05/24/20 00:00 30 05/24/20 00:00 97.9 92 19 113/73 (86) 99 05/23/20 23:33 87 05/23/20 23:00 30 05/23/20 22:50 87 29 97 30 05/23/20 20:47 94 127/75 05/23/20 20:00 Venturi Mask 05/23/20 20:00 97.7 94 22 127/75 (92) 98 05/23/20 20:00 8.0 35 05/23/20 19:28 94 05/23/20 18:55 98 Venturi Mask 8.0 30 05/23/20 17:35 143/67 05/23/20 16:00 8.0 35 05/23/20 16:00 Venturi Mask 05/23/20 16:00 93 05/23/20 16:00 98.1 63 17 143/67 (92) 100 Intake and Output 05/23/20 05/24/20 19:00 07:00 Intake Total 1031.25 ml 1619 ml Output Total 450 ml Balance 1031.25 ml 1169 ml Intake Free Water 225 ml 225 ml IV Total 276.25 ml 874 ml Tube Feeding 480 ml 520 ml Other 50 ml Output Urine Total 450 ml # Bowel Movements 2 1 Laboratory Tests 05/24/20 03:25: Sodium Level 155H, Potassium Level 4.0, Chloride Level 115H, Carbon Dioxide Level 38H, Anion Gap 3L, Blood Urea Nitrogen 101H, Creatinine 1.1, Estimat Glomerular Filtration Rate > 60, Glucose Level 211H, Calcium Level 9.3 Height (Feet): 5 Height (Inches): 6.00 Weight (Pounds): 137 Objective General Appearance: WD/WN, alert, confused EENT: normal ENT inspection Neck: normal alignment Cardiovascular: normal rate Respiratory/Chest: chest wall non-tender, lungs clear, normal breath sounds Abdomen: normal bowel sounds, non tender, soft, no organomegaly Edema: no edema noted Arm (L), no edema noted Arm (R) Neurologic: alert, disoriented Assessment/Plan Problem List: (1) Seizure ICD Codes: R56.9 - Unspecified convulsions SNOMED: 88626536 (2) Dysphagia ICD Codes: R13.10 - Dysphagia, unspecified SNOMED: 76532123, 952601783 (3) UTI (urinary tract infection) ICD Codes: N39.0 - Urinary tract infection, site not specified SNOMED: 41087460 (4) Elevated troponin I level ICD Codes: R77.8 - Other specified abnormalities of plasma proteins SNOMED: 393262886 (5) AMS (altered mental status) ICD Codes: R41.82 - Altered mental status, unspecified SNOMED: 169215730 (6) NSTEMI (non-ST elevated myocardial infarction) ICD Codes: I21.4 - Non-ST elevation (NSTEMI) myocardial infarction SNOMED: 48384058 Status: stable Assessment/Plan: bipap qhs nd prn venti mask as tolerated monitor abg wean o2/bipap as able iv steroids- wean tube feeds monitor residual monitor for vomiting sz rx iv abx cxr reviewed- stable monitor labs anxiolytics as needed o2 resp rx dvt/stress ulcer prophylaxis. wean steroids hypotonic ivf increased Jorge Kee MD May 24, 2020 14:19
--- NOTE | 2020-05-24 14:45 | Surgery Progress Note ---
Surgery Progress Note Subjective Additional Comments no acute events pulls mask off no n/v Objective Last 24 Hour Vital Signs Date Time Temp Pulse Resp B/P (MAP) Pulse Ox O2 Delivery O2 Flow Rate FiO2 05/24/20 12:00 Venturi Mask 05/24/20 12:00 2.0 05/24/20 12:00 98.7 84 18 134/79 (97) 97 05/24/20 12:00 84 05/24/20 11:48 136/71 05/24/20 09:59 95 20 99 Nasal Cannula 3.0 32 05/24/20 08:31 93 136/71 05/24/20 08:26 93 136/71 05/24/20 08:01 99 05/24/20 08:00 97.5 93 21 136/71 (92) 97 05/24/20 08:00 8.0 35 05/24/20 08:00 Venturi Mask 05/24/20 07:55 99 Venturi Mask 8.0 30 05/24/20 05:07 118/73 05/24/20 04:00 Venturi Mask 05/24/20 04:00 98.2 77 20 123/71 (88) 98 05/24/20 04:00 8.0 35 05/24/20 03:45 95 05/24/20 03:06 90 27 97 05/24/20 03:00 8.0 35 05/24/20 02:45 91 30 97 30 05/24/20 00:51 92 20 97 30 05/24/20 00:00 Venturi Mask 05/24/20 00:00 30 05/24/20 00:00 97.9 92 19 113/73 (86) 99 05/23/20 23:33 87 05/23/20 23:00 30 05/23/20 22:50 87 29 97 30 05/23/20 20:47 94 127/75 05/23/20 20:00 Venturi Mask 05/23/20 20:00 97.7 94 22 127/75 (92) 98 05/23/20 20:00 8.0 35 05/23/20 19:28 94 05/23/20 18:55 98 Venturi Mask 8.0 30 05/23/20 17:35 143/67 05/23/20 16:00 8.0 35 05/23/20 16:00 Venturi Mask 05/23/20 16:00 93 05/23/20 16:00 98.1 63 17 143/67 (92) 100 I&O Intake and Output 05/23/20 05/24/20 19:00 07:00 Intake Total 1031.25 ml 1619 ml Output Total 450 ml Balance 1031.25 ml 1169 ml Intake Free Water 225 ml 225 ml IV Total 276.25 ml 874 ml Tube Feeding 480 ml 520 ml Other 50 ml Output Urine Total 450 ml # Bowel Movements 2 1 Dressing: saturated Cardiovascular: RSR Respiratory: decreased breath sounds Abdomen: non-tender, present bowel sounds Extremities: no edema, no tenderness, no cyanosis Laboratory Tests Test 05/24/20 03:25 Sodium Level 155 MMOL/L (136-145) H Potassium Level 4.0 MMOL/L (3.5-5.1) Chloride Level 115 MMOL/L (98-107) H Carbon Dioxide Level 38 MMOL/L (21-32) H Anion Gap 3 mmol/L (5-15) L Blood Urea Nitrogen 101 mg/dL (7-18) H Creatinine 1.1 MG/DL (0.55-1.30) Estimat Glomerular Filtration Rate > 60 mL/min (>60) Glucose Level 211 MG/DL (74-106) H Calcium Level 9.3 MG/DL (8.5-10.1) Plan Problems: (1) Deep tissue injury Assessment & Plan: Patient identified to have bilateral heel concerns for potential developing DTI. Soft boggy no fluid collection no acute injury at this time. Patient identified to have sacral erythema and skin changes with concerns for developing deep tissue injury as well. No open areas. No fluid collections no fluctuance no drainage. On the scrotum patient is identified to have edema erythema and some abrasion along with incontinence associated dermatitis in the area. Patient identified to have abrasion to the nasal brim secondary to a facemask placement. Patient is chronically ill elderly and malnourished. Wound evaluated and care plan initiated. Treatment plan Apply skin protectant to the nasal bridge followed by foam dressing prior to facemask placement. Patient currently requires oxygen supplementation and therefore important to ensure receiving such along with protection of underlying epidermis. Apply OPTi foam to heels change every 3 days offload pressure with pillows Apply OPTi foam to sacral area monitor for incontinence change accordingly every 3 days and as needed saturation. Soft towel under scrotum. Continue with respiratory supportive care Turn every 2 hours Offload pressure with pillows Continue tube feeds nutritional optimization we will follow with recommendations thank you for let me participate patient's care (2) Dementia with behavioral problem (3) UTI (urinary tract infection) (4) Elevated troponin I level (5) AMS (altered mental status) (6) Dysphagia Assessment & Plan: DAILY ESTIMATED NEEDS: Needs based on Pulmonary, cardiac, 62kg 25-30 kcals/kg 5008-5687 total kcals 1-1.5 g protein/kg 62-93 g total protein 25-30 mL/kg 9140-6109 total fluid mLs NUTRITION DIAGNOSIS: Swallowing difficulty r/t dysphagia as evidenced by pt is PEG dep, currently on continuous BIPAP. CURRENT TF: Glucerna 1.5 @ 40ml/hr ENTERAL NUTRITION RECOMMENDATIONS: Glucerna 1.5 goal of 45ml/hr x 24 hrs to provide 1080ml, 1620 kcal, 89g pro, 820ml free water * Maintain carb controlled TF of Glucerna 1.5 while CO2 critically elevated * As medically appropriate, increase goal rate to 45ml/hr x 24 hrs to better meet nutritional needs. * HOB over 30 degrees/ water flush per MD ADDITIONAL RECOMMENDATIONS: 1) Monitor BIPAP usage, safety of GT feeds -> continuous BIPAP at this time 2) Lytes daily, replete as needed Current TF Glucerna 1.5 @goal of 40ml/hr provides 2419mg K/day 3) Calibrated bed scale wts (Bed scale shows uptrend: 65kg-> 71kg) 4) Rec HgA1C for eval of BG control 5) F/up w/ WC eval: Continue MVI and Vit C (7) Seizure (8) NSTEMI (non-ST elevated myocardial infarction) (9) Respiratory insufficiency Assessment & Plan: constant required bipap ? trach dnr/dni discussed with pcp and Benitez Jefferson May 24, 2020 14:45
--- NOTE | 2020-05-24 15:43 | Infectious Diseases Prog Note ---
Assessment/Plan Assessment/Plan A: 1. Urinary tract infection treated 2. MRSA nasal colonization. 3. CHF. 4. COPD. 5. Seizures. 6. Dementia. 7. He is negative for COVID-19. 8. Hypercapnic respiratory failure 9. Pleural effusion PLAN: 1. Observe off of antibiotic Subjective ROS Limited/Unobtainable: Yes Constitutional: Denies: fever Allergies: Coded Allergies: PENICILLINS (Unverified Allergy, Unknown, 08/11/19) Objective Last 24 Hour Vital Signs Date Time Temp Pulse Resp B/P (MAP) Pulse Ox O2 Delivery O2 Flow Rate FiO2 05/24/20 12:00 Venturi Mask 05/24/20 12:00 2.0 05/24/20 12:00 98.7 84 18 134/79 (97) 97 05/24/20 12:00 84 05/24/20 11:48 136/71 05/24/20 09:59 95 20 99 Nasal Cannula 3.0 32 05/24/20 08:31 93 136/71 05/24/20 08:26 93 136/71 05/24/20 08:01 99 05/24/20 08:00 97.5 93 21 136/71 (92) 97 05/24/20 08:00 8.0 35 05/24/20 08:00 Venturi Mask 05/24/20 07:55 99 Venturi Mask 8.0 30 05/24/20 05:07 118/73 05/24/20 04:00 Venturi Mask 05/24/20 04:00 98.2 77 20 123/71 (88) 98 05/24/20 04:00 8.0 35 05/24/20 03:45 95 05/24/20 03:06 90 27 97 05/24/20 03:00 8.0 35 05/24/20 02:45 91 30 97 30 05/24/20 00:51 92 20 97 30 05/24/20 00:00 Venturi Mask 05/24/20 00:00 30 05/24/20 00:00 97.9 92 19 113/73 (86) 99 05/23/20 23:33 87 05/23/20 23:00 30 05/23/20 22:50 87 29 97 30 05/23/20 20:47 94 127/75 05/23/20 20:00 Venturi Mask 05/23/20 20:00 97.7 94 22 127/75 (92) 98 05/23/20 20:00 8.0 35 05/23/20 19:28 94 05/23/20 18:55 98 Venturi Mask 8.0 30 05/23/20 17:35 143/67 05/23/20 16:00 8.0 35 05/23/20 16:00 Venturi Mask 05/23/20 16:00 93 05/23/20 16:00 98.1 63 17 143/67 (92) 100 Height (Feet): 5 Height (Inches): 6.00 Weight (Pounds): 137 HEENT: mucous membranes moist Respiratory/Chest: lungs clear, other - oxygen by nasal cannula Cardiovascular: normal rate Abdomen: soft, non tender Extremities: no edema Neurologic/Psychiatric: aphasia Laboratory Tests Test 05/24/20 03:25 Sodium Level 155 MMOL/L (136-145) H Potassium Level 4.0 MMOL/L (3.5-5.1) Chloride Level 115 MMOL/L (98-107) H Carbon Dioxide Level 38 MMOL/L (21-32) H Anion Gap 3 mmol/L (5-15) L Blood Urea Nitrogen 101 mg/dL (7-18) H Creatinine 1.1 MG/DL (0.55-1.30) Estimat Glomerular Filtration Rate > 60 mL/min (>60) Glucose Level 211 MG/DL (74-106) H Calcium Level 9.3 MG/DL (8.5-10.1) Current Medications Medications (Trade) Dose Ordered Sig/Mayela Route PRN Reason Start Time Stop Time Status Last Admin Dose Admin Acetaminophen (Tylenol) 650 mg Q4H PRN GT back pain 05/06/20 15:15 06/05/20 15:14 05/16/20 07:27 Acetazolamide (Diamox) 250 mg TWICE A DAY GT 05/13/20 09:00 06/12/20 08:59 05/24/20 08:26 Amlodipine Besylate (Norvasc) 5 mg DAILY GT 05/07/20 09:00 06/06/20 08:59 05/24/20 08:31 Ascorbic Acid (Vitamin C) 500 mg DAILY GT 05/07/20 09:00 06/06/20 08:59 05/24/20 08:25 Aspirin (ASA) 81 mg DAILY GT 05/07/20 09:00 06/21/20 08:59 05/24/20 08:25 Carvedilol (Coreg) 3.125 mg EVERY 12 HOURS GT 05/07/20 09:00 06/06/20 08:59 05/24/20 08:26 Clonidine HCl (Catapres Tab) 0.1 mg Q4H PRN ORAL SBP >160 05/08/20 22:15 08/06/20 22:14 Dextrose 1,000 ml @ 100 mls/hr Q10H IV 05/23/20 14:00 06/22/20 13:59 05/24/20 14:56 Docusate Sodium (Colace) 200 mg BID GT 05/06/20 18:00 06/05/20 17:59 05/24/20 08:26 Heparin Sodium (Porcine) (Heparin 5000 units/ml) 5,000 units EVERY 12 HOURS SUBQ 05/08/20 09:00 06/22/20 08:59 05/24/20 08:31 Levetiracetam (Keppra) 250 mg DAILY GT 05/19/20 15:11 06/18/20 15:10 05/24/20 08:25 Methylprednisolone Sodium Succinate (Solu-MEDROL) 40 mg DAILY IVP 05/24/20 14:15 08/21/20 20:59 05/24/20 14:58 Multivitamins (Multivitamins W/ Minerals 15ml Liquid) 5 ml DAILY GT 05/07/20 09:00 06/06/20 08:59 05/24/20 08:26 Nitroglycerin (Nitro-Bid) 1 inch TID@0600,1200,1800 TOPIC 05/16/20 18:00 06/15/20 17:59 05/24/20 11:48 Potassium Chloride (K-Dur) 20 meq DAILY GT 05/13/20 09:00 08/11/20 08:59 05/24/20 08:25 Tamsulosin HCl (Flomax) 0.4 mg BEDTIME ORAL 05/06/20 21:00 06/05/20 20:59 05/23/20 20:46 Luis Yanes MD May 24, 2020 15:43
[2020-05-24 16:00] VITALS: BP 147/90
[2020-05-24 20:00] VITALS: BP 136/74
[2020-05-24] MEDS: Tamsulosin 0.4mg cap ORAL SCH (20:24)
[2020-05-25] VITALS: BP 119/68
[2020-05-25 04:00] VITALS: BP 137/77
[2020-05-25] MEDS: Nitroglycerin 2% oint pkt TOPIC SCH ×3 (05:07→17:41)
[2020-05-25 05:59] LABS: ANION GAP 1 mmol/L (5-15); BLOOD UREA NITROGEN 82 mg/dL (7-18); CALCIUM 8.6 MG/DL (8.5-10.1); CARBON DIOXIDE 39 MMOL/L (21-32); CHLORIDE 112 MMOL/L (98-107); CREATININE 0.9 MG/DL (0.55-1.30); POTASSIUM 3.9 MMOL/L (3.5-5.1); SODIUM 152 MMOL/L (136-145)
[2020-05-25 08:00] VITALS: BP 139/74
[2020-05-25] MEDS: Solu-MEDROL 40mg Inj IVP SCH (08:50)
[2020-05-25] MEDS: levETIRAcetam 500mg/5ml Liquid GT SCH (08:50)
[2020-05-25] MEDS: Ascorbic Acid 500mg tab GT SCH (08:51)
[2020-05-25] MEDS: Aspirin Baby 81mg GT SCH (08:51)
[2020-05-25] MEDS: Docusate 100mg/10ml Liq GT SCH ×3 (08:52→17:40)
[2020-05-25] MEDS: Heparin 5000 units/ml inj SUBQ SCH ×2 (08:54→20:51)
[2020-05-25] MEDS: Multivitamins W/Minerals 15 ML UDC GT SCH (08:59)
--- NOTE | 2020-05-25 11:24 | General Progress Note ---
Subjective ROS Limited/Unobtainable: Yes Constitutional: Reports: malaise, weakness HEENT: Reports: no symptoms Cardiovascular: Reports: no symptoms Respiratory: Reports: cough, shortness of breath, sputum Gastrointestinal/Abdominal: Reports: difficulty swallowing Genitourinary: Reports: no symptoms Neurologic/Psychiatric: Reports: pre-existing deficit, seizure Endocrine: Reports: no symptoms Hematologic/Lymphatic: Reports: anemia Allergies: Coded Allergies: PENICILLINS (Unverified Allergy, Unknown, 08/11/19) All Systems: reviewed and negative except above Subjective improving slowly. on bipap at night. nasal cannula during the day. alert. no szs. toleratin feeds. Objective Last 24 Hour Vital Signs Date Time Temp Pulse Resp B/P (MAP) Pulse Ox O2 Delivery O2 Flow Rate FiO2 05/25/20 08:51 72 139/74 05/25/20 08:50 72 139/74 05/25/20 08:00 2.0 05/25/20 08:00 97.5 72 18 139/74 (95) 100 05/25/20 08:00 Nasal Cannula 2.0 05/25/20 07:37 100 Nasal Cannula 3.0 32 05/25/20 07:33 73 05/25/20 05:07 136/74 05/25/20 04:00 Nasal Cannula 2.0 05/25/20 04:00 98.2 76 21 137/77 (97) 100 05/25/20 04:00 2.0 05/25/20 03:33 79 05/25/20 00:00 2.0 05/25/20 00:00 Nasal Cannula 2.0 05/25/20 00:00 97.3 84 18 119/68 (85) 100 05/24/20 23:53 84 05/24/20 20:25 90 136/74 05/24/20 20:00 99 Nasal Cannula 3.0 32 05/24/20 20:00 98.1 82 20 136/74 (94) 100 05/24/20 20:00 Nasal Cannula 2.0 05/24/20 20:00 2.0 05/24/20 19:51 91 05/24/20 17:14 147/90 05/24/20 16:00 2.0 05/24/20 16:00 98.1 82 19 147/90 (109) 98 05/24/20 16:00 Nasal Cannula 2.0 05/24/20 15:31 92 05/24/20 12:00 Venturi Mask 05/24/20 12:00 2.0 05/24/20 12:00 98.7 84 18 134/79 (97) 97 05/24/20 12:00 84 05/24/20 11:48 136/71 Intake and Output 05/24/20 05/25/20 19:00 07:00 Intake Total 1525 ml 1477 ml Output Total 300 ml 500 ml Balance 1225 ml 977 ml Intake Free Water 80 ml 90 ml IV Total 925 ml 947 ml Tube Feeding 520 ml 440 ml Output Urine Total 300 ml 500 ml # Bowel Movements 1 1 Laboratory Tests 05/25/20 03:47: Sodium Level 152H, Potassium Level 3.9, Chloride Level 112H, Carbon Dioxide Level 39H, Anion Gap 1L, Blood Urea Nitrogen 82H, Creatinine 0.9, Estimat Glomerular Filtration Rate > 60, Glucose Level 171H, Calcium Level 8.6 Height (Feet): 5 Height (Inches): 6.00 Weight (Pounds): 137 Objective General Appearance: WD/WN, alert, confused EENT: normal ENT inspection Neck: normal alignment Cardiovascular: normal rate Respiratory/Chest: chest wall non-tender, lungs clear, normal breath sounds Abdomen: normal bowel sounds, non tender, soft, no organomegaly Edema: no edema noted Arm (L), no edema noted Arm (R) Neurologic: alert, disoriented Assessment/Plan Problem List: (1) Seizure ICD Codes: R56.9 - Unspecified convulsions SNOMED: 24022264 (2) Dysphagia ICD Codes: R13.10 - Dysphagia, unspecified SNOMED: 56367388, 715791423 (3) UTI (urinary tract infection) ICD Codes: N39.0 - Urinary tract infection, site not specified SNOMED: 73768853 (4) Elevated troponin I level ICD Codes: R77.8 - Other specified abnormalities of plasma proteins SNOMED: 583005974 (5) AMS (altered mental status) ICD Codes: R41.82 - Altered mental status, unspecified SNOMED: 106359856 (6) NSTEMI (non-ST elevated myocardial infarction) ICD Codes: I21.4 - Non-ST elevation (NSTEMI) myocardial infarction SNOMED: 22803762 Status: stable Assessment/Plan: bipap qhs nd prn wean o2 during the day monitor abg wean o2/bipap as able iv steroids- wean tube feeds monitor residual monitor for vomiting sz rx iv abx cxr reviewed- stable monitor labs anxiolytics as needed o2 resp rx dvt/stress ulcer prophylaxis. wean steroids hypotonic ivf Jorge Kee MD May 25, 2020 11:24
--- NOTE | 2020-05-25 11:52 | Infectious Diseases Prog Note ---
Assessment/Plan Assessment/Plan antibiotics : none A 1. Urinary tract infection with E. coli s/p rx 2. MRSA nasal colonization. 3. CHF. 4. COPD. 5. Seizures. 6. Dementia. 7. He is negative for COVID-19. P 1. continue off antibiotics Subjective ROS Limited/Unobtainable: Yes Allergies: Coded Allergies: PENICILLINS (Unverified Allergy, Unknown, 08/11/19) Objective Last 24 Hour Vital Signs Date Time Temp Pulse Resp B/P (MAP) Pulse Ox O2 Delivery O2 Flow Rate FiO2 05/25/20 08:51 72 139/74 05/25/20 08:50 72 139/74 05/25/20 08:00 2.0 05/25/20 08:00 97.5 72 18 139/74 (95) 100 05/25/20 08:00 Nasal Cannula 2.0 05/25/20 07:37 100 Nasal Cannula 3.0 32 05/25/20 07:33 73 05/25/20 05:07 136/74 05/25/20 04:00 Nasal Cannula 2.0 05/25/20 04:00 98.2 76 21 137/77 (97) 100 05/25/20 04:00 2.0 05/25/20 03:33 79 05/25/20 00:00 2.0 05/25/20 00:00 Nasal Cannula 2.0 05/25/20 00:00 97.3 84 18 119/68 (85) 100 05/24/20 23:53 84 05/24/20 20:25 90 136/74 05/24/20 20:00 99 Nasal Cannula 3.0 32 05/24/20 20:00 98.1 82 20 136/74 (94) 100 05/24/20 20:00 Nasal Cannula 2.0 05/24/20 20:00 2.0 05/24/20 19:51 91 05/24/20 17:14 147/90 05/24/20 16:00 2.0 05/24/20 16:00 98.1 82 19 147/90 (109) 98 05/24/20 16:00 Nasal Cannula 2.0 05/24/20 15:31 92 05/24/20 12:00 Venturi Mask 05/24/20 12:00 2.0 05/24/20 12:00 98.7 84 18 134/79 (97) 97 05/24/20 12:00 84 Height (Feet): 5 Height (Inches): 6.00 Weight (Pounds): 137 Respiratory/Chest: lungs clear Cardiovascular: normal rate, regular rhythm, no gallop/murmur Abdomen: soft, non tender, other - GT Extremities: no edema Laboratory Tests Test 05/25/20 03:47 Sodium Level 152 MMOL/L (136-145) H Potassium Level 3.9 MMOL/L (3.5-5.1) Chloride Level 112 MMOL/L (98-107) H Carbon Dioxide Level 39 MMOL/L (21-32) H Anion Gap 1 mmol/L (5-15) L Blood Urea Nitrogen 82 mg/dL (7-18) H Creatinine 0.9 MG/DL (0.55-1.30) Estimat Glomerular Filtration Rate > 60 mL/min (>60) Glucose Level 171 MG/DL (74-106) H Calcium Level 8.6 MG/DL (8.5-10.1) Current Medications Medications (Trade) Dose Ordered Sig/Mayela Route PRN Reason Start Time Stop Time Status Last Admin Dose Admin Acetaminophen (Tylenol) 650 mg Q4H PRN GT back pain 05/06/20 15:15 06/05/20 15:14 05/16/20 07:27 Acetazolamide (Diamox) 250 mg TWICE A DAY GT 05/13/20 09:00 06/12/20 08:59 05/25/20 08:50 Amlodipine Besylate (Norvasc) 5 mg DAILY GT 05/07/20 09:00 06/06/20 08:59 05/25/20 08:51 Ascorbic Acid (Vitamin C) 500 mg DAILY GT 05/07/20 09:00 06/06/20 08:59 05/25/20 08:51 Aspirin (ASA) 81 mg DAILY GT 05/07/20 09:00 06/21/20 08:59 05/25/20 08:51 Carvedilol (Coreg) 3.125 mg EVERY 12 HOURS GT 05/07/20 09:00 06/06/20 08:59 05/25/20 08:50 Clonidine HCl (Catapres Tab) 0.1 mg Q4H PRN ORAL SBP >160 05/08/20 22:15 08/06/20 22:14 Dextrose 1,000 ml @ 85 mls/hr [id number] IV 05/23/20 14:00 06/22/20 13:59 05/25/20 01:32 Docusate Sodium (Colace) 200 mg BID GT 05/06/20 18:00 06/05/20 17:59 05/24/20 08:26 Heparin Sodium (Porcine) (Heparin 5000 units/ml) 5,000 units EVERY 12 HOURS SUBQ 05/08/20 09:00 06/22/20 08:59 05/25/20 08:54 Levetiracetam (Keppra) 250 mg DAILY GT 05/19/20 15:11 06/18/20 15:10 05/25/20 08:50 Methylprednisolone Sodium Succinate (Solu-MEDROL) 40 mg DAILY IVP 05/24/20 14:15 08/21/20 20:59 05/25/20 08:50 Multivitamins (Multivitamins W/ Minerals 15ml Liquid) 5 ml DAILY GT 05/07/20 09:00 06/06/20 08:59 05/25/20 08:59 Nitroglycerin (Nitro-Bid) 1 inch TID@0600,1200,1800 TOPIC 05/16/20 18:00 06/15/20 17:59 05/25/20 05:07 Potassium Chloride (K-Dur) 20 meq DAILY GT 05/13/20 09:00 08/11/20 08:59 05/25/20 08:51 Tamsulosin HCl (Flomax) 0.4 mg BEDTIME ORAL 05/06/20 21:00 06/05/20 20:59 05/24/20 20:24 Josué Light MD May 25, 2020 11:52
[2020-05-25 12:00] VITALS: BP 129/69
--- NOTE | 2020-05-25 14:39 | Cardiology Progress Note ---
Subjective DATE OF SERVICE: May 25, 2020 Slowly tapering off bipap as acid-base and oxygen parameters improve. (05/22/20) 7.37/66/102 CXR (05/19) low lung volumes without interval change BP now well controlled. Objective Last 24 Hour Vital Signs Date Time Temp Pulse Resp B/P (MAP) Pulse Ox O2 Delivery O2 Flow Rate FiO2 05/25/20 12:15 129/69 05/25/20 12:00 Nasal Cannula 2.0 05/25/20 12:00 97.2 71 20 129/69 (89) 100 05/25/20 12:00 Nasal Cannula 2.0 05/25/20 12:00 2.0 05/25/20 11:36 72 05/25/20 08:51 72 139/74 05/25/20 08:50 72 139/74 05/25/20 08:00 2.0 05/25/20 08:00 97.5 72 18 139/74 (95) 100 05/25/20 08:00 Nasal Cannula 2.0 05/25/20 07:37 100 Nasal Cannula 3.0 32 05/25/20 07:33 73 05/25/20 05:07 136/74 05/25/20 04:00 Nasal Cannula 2.0 05/25/20 04:00 98.2 76 21 137/77 (97) 100 05/25/20 04:00 2.0 05/25/20 03:33 79 05/25/20 00:00 2.0 05/25/20 00:00 Nasal Cannula 2.0 05/25/20 00:00 97.3 84 18 119/68 (85) 100 05/24/20 23:53 84 05/24/20 20:25 90 136/74 05/24/20 20:00 99 Nasal Cannula 3.0 32 05/24/20 20:00 98.1 82 20 136/74 (94) 100 05/24/20 20:00 Nasal Cannula 2.0 05/24/20 20:00 2.0 05/24/20 19:51 91 05/24/20 17:14 147/90 05/24/20 16:00 2.0 05/24/20 16:00 98.1 82 19 147/90 (109) 98 05/24/20 16:00 Nasal Cannula 2.0 05/24/20 15:31 92 ROS: unchanged from my evaluation of 05/06/20 RHYTHM: NSR LUNGS: diminished breath sounds CARDIAC: normal rate, regular rhythm, normal S1 and S2 ABDOMEN: non tender, soft, G-Tube intact EXTREMITIES: non-pitting, No edema Laboratory Tests Test 05/25/20 03:47 Sodium Level 152 MMOL/L (136-145) H Potassium Level 3.9 MMOL/L (3.5-5.1) Chloride Level 112 MMOL/L (98-107) H Carbon Dioxide Level 39 MMOL/L (21-32) H Anion Gap 1 mmol/L (5-15) L Blood Urea Nitrogen 82 mg/dL (7-18) H Creatinine 0.9 MG/DL (0.55-1.30) Estimat Glomerular Filtration Rate > 60 mL/min (>60) Glucose Level 171 MG/DL (74-106) H Calcium Level 8.6 MG/DL (8.5-10.1) Assessment/Plan Assessment/Plan E.coli UTI Sepsis Metabolic and toxic encephalopathies Cerebrovascular disease with dementia Acute myocardial ischemia and possible NSTEMI Dehydration/hypernatremia Hypertension/HHD Ac/chronic respiratory acidosis - worse today Respiratory failure still requiring bipap support Ac diastolic CHF improving; BNP continues steady decline Metabolic acidosis Pleural effusions Ac/chr renal failure with azotemia Continue anti-anginal regimen; titrate meds for BP control. Nitrates continued. Antimicrobials No diuresis at present; continuing free water replacement. Monitor acid-base parameters. Bipap support with taper Real Magana MD May 25, 2020 14:39
[2020-05-25] MEDS ORDERED: Tubing IV Secondary IV ONE (15:19)
[2020-05-25] MEDS ORDERED: NS 275ml ONE (15:19)
[2020-05-25 16:00] VITALS: BP 121/61
--- NOTE | 2020-05-25 16:57 | Pulmonology Progress Note ---
Subjective ROS Limited/Unobtainable: Yes Constitutional: Denies: fever Allergies: Coded Allergies: PENICILLINS (Unverified Allergy, Unknown, 08/11/19) All Systems: reviewed and negative except above Objective Last 24 Hour Vital Signs Date Time Temp Pulse Resp B/P (MAP) Pulse Ox O2 Delivery O2 Flow Rate FiO2 05/25/20 16:00 97.6 70 18 121/61 (81) 100 05/25/20 16:00 2.0 05/25/20 16:00 Nasal Cannula 2.0 05/25/20 12:15 129/69 05/25/20 12:00 Nasal Cannula 2.0 05/25/20 12:00 97.2 71 20 129/69 (89) 100 05/25/20 12:00 Nasal Cannula 2.0 05/25/20 12:00 2.0 05/25/20 11:36 72 05/25/20 08:51 72 139/74 05/25/20 08:50 72 139/74 05/25/20 08:00 2.0 05/25/20 08:00 97.5 72 18 139/74 (95) 100 05/25/20 08:00 Nasal Cannula 2.0 05/25/20 07:37 100 Nasal Cannula 3.0 32 05/25/20 07:33 73 05/25/20 05:07 136/74 05/25/20 04:00 Nasal Cannula 2.0 05/25/20 04:00 98.2 76 21 137/77 (97) 100 05/25/20 04:00 2.0 05/25/20 03:33 79 05/25/20 00:00 2.0 05/25/20 00:00 Nasal Cannula 2.0 05/25/20 00:00 97.3 84 18 119/68 (85) 100 05/24/20 23:53 84 05/24/20 20:25 90 136/74 05/24/20 20:00 99 Nasal Cannula 3.0 32 05/24/20 20:00 98.1 82 20 136/74 (94) 100 05/24/20 20:00 Nasal Cannula 2.0 05/24/20 20:00 2.0 05/24/20 19:51 91 05/24/20 17:14 147/90 Intake and Output 05/24/20 05/25/20 19:00 07:00 Intake Total 1525 ml 1477 ml Output Total 300 ml 500 ml Balance 1225 ml 977 ml Intake Free Water 80 ml 90 ml IV Total 925 ml 947 ml Tube Feeding 520 ml 440 ml Output Urine Total 300 ml 500 ml # Bowel Movements 1 1 Laboratory Tests 05/25/20 03:47: Sodium Level 152H, Potassium Level 3.9, Chloride Level 112H, Carbon Dioxide Level 39H, Anion Gap 1L, Blood Urea Nitrogen 82H, Creatinine 0.9, Estimat Glomerular Filtration Rate > 60, Glucose Level 171H, Calcium Level 8.6 Current Medications Medications (Trade) Dose Ordered Sig/Mayela Route PRN Reason Start Time Stop Time Status Last Admin Dose Admin Acetaminophen (Tylenol) 650 mg Q4H PRN GT back pain 05/06/20 15:15 06/05/20 15:14 05/16/20 07:27 Acetazolamide (Diamox) 250 mg TWICE A DAY GT 05/13/20 09:00 06/12/20 08:59 05/25/20 08:50 Amlodipine Besylate (Norvasc) 5 mg DAILY GT 05/07/20 09:00 06/06/20 08:59 05/25/20 08:51 Ascorbic Acid (Vitamin C) 500 mg DAILY GT 05/07/20 09:00 06/06/20 08:59 05/25/20 08:51 Aspirin (ASA) 81 mg DAILY GT 05/07/20 09:00 06/21/20 08:59 05/25/20 08:51 Carvedilol (Coreg) 3.125 mg EVERY 12 HOURS GT 05/07/20 09:00 06/06/20 08:59 05/25/20 08:50 Clonidine HCl (Catapres Tab) 0.1 mg Q4H PRN ORAL SBP >160 05/08/20 22:15 08/06/20 22:14 Dextrose 1,000 ml @ 100 mls/hr Q10H IV 05/23/20 14:00 06/22/20 13:59 05/25/20 12:15 Docusate Sodium (Colace) 200 mg BID GT 05/06/20 18:00 06/05/20 17:59 05/24/20 08:26 Heparin Sodium (Porcine) (Heparin 5000 units/ml) 5,000 units EVERY 12 HOURS SUBQ 05/08/20 09:00 06/22/20 08:59 05/25/20 08:54 Levetiracetam (Keppra) 250 mg DAILY GT 05/19/20 15:11 06/18/20 15:10 05/25/20 08:50 Methylprednisolone Sodium Succinate (Solu-MEDROL) 40 mg DAILY IVP 05/24/20 14:15 08/21/20 20:59 05/25/20 08:50 Multivitamins (Multivitamins W/ Minerals 15ml Liquid) 5 ml DAILY GT 05/07/20 09:00 06/06/20 08:59 05/25/20 08:59 Nitroglycerin (Nitro-Bid) 1 inch TID@0600,1200,1800 TOPIC 05/16/20 18:00 06/15/20 17:59 05/25/20 12:15 Potassium Chloride (K-Dur) 20 meq DAILY GT 05/13/20 09:00 08/11/20 08:59 05/25/20 08:51 Tamsulosin HCl (Flomax) 0.4 mg BEDTIME ORAL 05/06/20 21:00 06/05/20 20:59 05/24/20 20:24 Assessment/Plan Assessment/Plan Pulmonary Progress Note Subjective ROS Limited/Unobtainable: Yes Constitutional: Denies: fever Allergies: Coded Allergies: PENICILLINS (Unverified Allergy, Unknown, 08/11/19) All Systems: reviewed and negative except above Subjective care noted on BIPAP PRN no distress imaging noted medications reviewed Objective Vital Signs noted Objective WDWN NAD reduced breath sounds bilaterally without rhonchi [id number] without MRG NABS nontender no CC mild edema nonfocal off BIPAP reduced LOC Laboratory Tests noted Assessment/Plan Assessment/Plan ASSESSMENT: Pulmonary congestion, respiratory failure, hypoxemia dementia, G-tube, seizure disorder, congestive heart failure, COPD sepsis, and acute PR. acute on chronic CO2 retention PLAN: maintain oxygen and need for BIPAP; repeat ABG noted. Breathing treatments and aspiration precautions. Monitor blood gases for change.keep negative. seizure medications. feeds and monitor residuals; DNR noted DVT prophylaxis hope to maintain off BIPAP ABG in am remains guarded d/w primary impression, plan, and exam edited and reviewed in detail care discussed with Real Ambrocio MD May 25, 2020 16:57
--- NOTE | 2020-05-25 17:13 | Surgery Progress Note ---
Surgery Progress Note Subjective Symptoms: improved, tolerating diet, passing flatus, BM Objective Last 24 Hour Vital Signs Date Time Temp Pulse Resp B/P (MAP) Pulse Ox O2 Delivery O2 Flow Rate FiO2 05/25/20 16:00 97.6 70 18 121/61 (81) 100 05/25/20 16:00 2.0 05/25/20 16:00 Nasal Cannula 2.0 05/25/20 12:15 129/69 05/25/20 12:00 Nasal Cannula 2.0 05/25/20 12:00 97.2 71 20 129/69 (89) 100 05/25/20 12:00 Nasal Cannula 2.0 05/25/20 12:00 2.0 05/25/20 11:36 72 05/25/20 08:51 72 139/74 05/25/20 08:50 72 139/74 05/25/20 08:00 2.0 05/25/20 08:00 97.5 72 18 139/74 (95) 100 05/25/20 08:00 Nasal Cannula 2.0 05/25/20 07:37 100 Nasal Cannula 3.0 32 05/25/20 07:33 73 05/25/20 05:07 136/74 05/25/20 04:00 Nasal Cannula 2.0 05/25/20 04:00 98.2 76 21 137/77 (97) 100 05/25/20 04:00 2.0 05/25/20 03:33 79 05/25/20 00:00 2.0 05/25/20 00:00 Nasal Cannula 2.0 05/25/20 00:00 97.3 84 18 119/68 (85) 100 05/24/20 23:53 84 05/24/20 20:25 90 136/74 05/24/20 20:00 99 Nasal Cannula 3.0 32 05/24/20 20:00 98.1 82 20 136/74 (94) 100 05/24/20 20:00 Nasal Cannula 2.0 05/24/20 20:00 2.0 05/24/20 19:51 91 05/24/20 17:14 147/90 I&O Intake and Output 05/24/20 05/25/20 19:00 07:00 Intake Total 1525 ml 1477 ml Output Total 300 ml 500 ml Balance 1225 ml 977 ml Intake Free Water 80 ml 90 ml IV Total 925 ml 947 ml Tube Feeding 520 ml 440 ml Output Urine Total 300 ml 500 ml # Bowel Movements 1 1 Dressing: saturated Cardiovascular: RSR Respiratory: decreased breath sounds Abdomen: non-tender, present bowel sounds Extremities: no edema, no tenderness, no cyanosis Laboratory Tests Test 05/25/20 03:47 Sodium Level 152 MMOL/L (136-145) H Potassium Level 3.9 MMOL/L (3.5-5.1) Chloride Level 112 MMOL/L (98-107) H Carbon Dioxide Level 39 MMOL/L (21-32) H Anion Gap 1 mmol/L (5-15) L Blood Urea Nitrogen 82 mg/dL (7-18) H Creatinine 0.9 MG/DL (0.55-1.30) Estimat Glomerular Filtration Rate > 60 mL/min (>60) Glucose Level 171 MG/DL (74-106) H Calcium Level 8.6 MG/DL (8.5-10.1) Plan Problems: (1) Deep tissue injury Assessment & Plan: Patient identified to have bilateral heel concerns for potential developing DTI. Soft boggy no fluid collection no acute injury at this time. Patient identified to have sacral erythema and skin changes with concerns for developing deep tissue injury as well. No open areas. No fluid collections no fluctuance no drainage. On the scrotum patient is identified to have edema erythema and some abrasion along with incontinence associated dermatitis in the area. Patient identified to have abrasion to the nasal brim secondary to a facemask placement. Patient is chronically ill elderly and malnourished. Wound evaluated and care plan initiated. Treatment plan Apply skin protectant to the nasal bridge followed by foam dressing prior to facemask placement. Patient currently requires oxygen supplementation and therefore important to ensure receiving such along with protection of underlying epidermis. Apply OPTi foam to heels change every 3 days offload pressure with pillows Apply OPTi foam to sacral area monitor for incontinence change accordingly every 3 days and as needed saturation. Soft towel under scrotum. Continue with respiratory supportive care Turn every 2 hours Offload pressure with pillows Continue tube feeds nutritional optimization we will follow with recommendations thank you for let me participate patient's care (2) Dementia with behavioral problem (3) UTI (urinary tract infection) (4) Elevated troponin I level (5) AMS (altered mental status) (6) Dysphagia Assessment & Plan: DAILY ESTIMATED NEEDS: Needs based on Pulmonary, cardiac, 62kg 25-30 kcals/kg 8398-1854 total kcals 1-1.5 g protein/kg 62-93 g total protein 25-30 mL/kg 4882-2397 total fluid mLs NUTRITION DIAGNOSIS: Swallowing difficulty r/t dysphagia as evidenced by pt is PEG dep, currently on continuous BIPAP. CURRENT TF: Glucerna 1.5 @ 40ml/hr ENTERAL NUTRITION RECOMMENDATIONS: Glucerna 1.5 goal of 45ml/hr x 24 hrs to provide 1080ml, 1620 kcal, 89g pro, 820ml free water * Maintain carb controlled TF of Glucerna 1.5 while CO2 critically elevated * As medically appropriate, increase goal rate to 45ml/hr x 24 hrs to better meet nutritional needs. * HOB over 30 degrees/ water flush per MD ADDITIONAL RECOMMENDATIONS: 1) Monitor BIPAP usage, safety of GT feeds -> continuous BIPAP at this time 2) Lytes daily, replete as needed Current TF Glucerna 1.5 @goal of 40ml/hr provides 2419mg K/day 3) Calibrated bed scale wts (Bed scale shows uptrend: 65kg-> 71kg) 4) Rec HgA1C for eval of BG control 5) F/up w/ WC eval: Continue MVI and Vit C (7) Seizure (8) NSTEMI (non-ST elevated myocardial infarction) (9) Respiratory insufficiency Assessment & Plan: constant required bipap ? trach dnr/dni discussed with pcp and Benitez Jefferson May 25, 2020 17:13
[2020-05-25 20:00] VITALS: BP 120/65
[2020-05-25] MEDS: Tamsulosin 0.4mg cap ORAL SCH (20:48)
[2020-05-26] VITALS: BP 115/60
[2020-05-26 04:00] VITALS: BP 137/56
[2020-05-26 05:47] LABS: BASOPHILS % (AUTO) 0.3 % (0.0-2.0); EOSINOPHILS % (AUTO) 0.2 % (0.0-3.0); HEMATOCRIT 44.2 % (42.0-52.0); HEMOGLOBIN 12.9 G/DL (14.2-18.0); LYMPHOCYTES % (AUTO) 14.3 % (20.0-45.0); MEAN CORPUSCULAR VOLUME 110 FL (80-99); NEUTROPHILS % (AUTO) 74.2 % (45.0-75.0); PLATELET COUNT 150 K/UL (150-450); RED BLOOD COUNT 4.01 M/UL (4.70-6.10); RED CELL DISTRIBUTION WIDTH 14.2 % (11.6-14.8); WHITE BLOOD COUNT 11.5 K/UL (4.8-10.8)
[2020-05-26] MEDS: Nitroglycerin 2% oint pkt TOPIC SCH ×3 (05:55→17:46)
[2020-05-26 06:44] LABS: ALANINE AMINOTRANSFERASE 91 U/L (12-78); ALBUMIN 2.7 G/DL (3.4-5.0); ALBUMIN/GLOBULIN RATIO 0.7 (1.0-2.7); ALKALINE PHOSPHATASE 85 U/L (46-116); ANION GAP 0 mmol/L (5-15); ASPARTATE AMINO TRANSFERASE 32 U/L (15-37); BILIRUBIN,TOTAL 0.3 MG/DL (0.2-1.0); BLOOD UREA NITROGEN 53 mg/dL (7-18); CALCIUM 8.3 MG/DL (8.5-10.1); CARBON DIOXIDE 38 MMOL/L (21-32); CHLORIDE 108 MMOL/L (98-107); CREATININE 0.7 MG/DL (0.55-1.30); POTASSIUM 3.7 MMOL/L (3.5-5.1); SODIUM 146 MMOL/L (136-145)
[2020-05-26 08:00] VITALS: BP 105/58
--- NOTE | 2020-05-26 08:21 | Pulmonology Progress Note ---
Subjective ROS Limited/Unobtainable: Yes Constitutional: Denies: fever Allergies: Coded Allergies: PENICILLINS (Unverified Allergy, Unknown, 08/11/19) All Systems: reviewed and negative except above Subjective care noted off BIPAP no distress on NC imaging noted Objective Last 24 Hour Vital Signs Date Time Temp Pulse Resp B/P (MAP) Pulse Ox O2 Delivery O2 Flow Rate FiO2 05/26/20 05:55 137/56 05/26/20 04:00 Nasal Cannula 2.0 05/26/20 04:00 97.7 61 22 137/56 (83) 100 05/26/20 04:00 2.0 05/26/20 00:04 64 05/26/20 00:00 Nasal Cannula 2.0 05/26/20 00:00 96.9 100 18 115/60 (78) 100 05/25/20 23:55 2.0 05/25/20 20:48 73 120/65 05/25/20 20:00 Nasal Cannula 2.0 05/25/20 20:00 76 05/25/20 20:00 2.0 05/25/20 20:00 97.3 74 18 120/65 (83) 100 05/25/20 19:15 99 Nasal Cannula 3.0 32 05/25/20 17:41 121/61 05/25/20 16:00 97.6 70 18 121/61 (81) 100 05/25/20 16:00 71 05/25/20 16:00 2.0 05/25/20 16:00 Nasal Cannula 2.0 05/25/20 12:15 129/69 05/25/20 12:00 Nasal Cannula 2.0 05/25/20 12:00 97.2 71 20 129/69 (89) 100 05/25/20 12:00 Nasal Cannula 2.0 05/25/20 12:00 2.0 05/25/20 11:36 72 05/25/20 08:51 72 139/74 05/25/20 08:50 72 139/74 Intake and Output 05/25/20 05/26/20 19:00 07:00 Intake Total 1505 ml 1603.75 ml Output Total 300 ml 200 ml Balance 1205 ml 1403.75 ml Intake Free Water 115 ml 200 ml IV Total 910 ml 963.75 ml Tube Feeding 480 ml 440 ml Output Urine Total 300 ml 200 ml # Voids 5 # Bowel Movements 2 4 Objective WDWN NAD reduced breath sounds bilaterally without rhonchi [id number] without MRG NABS nontender no CC mild edema nonfocal off BIPAP reduced LOC Laboratory Tests 05/26/20 04:26: White Blood Count 11.5H, Red Blood Count 4.01L, Hemoglobin 12.9L, Hematocrit 44.2, Mean Corpuscular Volume 110H, Mean Corpuscular Hemoglobin 32.3H, Mean Corpuscular Hemoglobin Concent 29.3L, Red Cell Distribution Width 14.2, Platelet Count 150, Mean Platelet Volume 10.8H, Neutrophils (%) (Auto) 74.2, Lymphocytes (%) (Auto) 14.3L, Monocytes (%) (Auto) 11.0H, Eosinophils (%) (Auto) 0.2, Basophils (%) (Auto) 0.3, Sodium Level 146H, Potassium Level 3.7, Chloride Level 108H, Carbon Dioxide Level 38H, Anion Gap 0L, Blood Urea Nitrogen 53H, Creatinine 0.7, Estimat Glomerular Filtration Rate > 60, Glucose Level 144H, Calcium Level 8.3L, Magnesium Level 2.6H, Total Bilirubin 0.3, Aspartate Amino Transf (AST/SGOT) 32, Alanine Aminotransferase (ALT/SGPT) 91H, Alkaline Phosphatase 85, Pro-B-Type Natriuretic Peptide 1056H, Total Protein 6.5, Albumin 2.7L, Globulin 3.8, Albumin/Globulin Ratio 0.7L Current Medications Medications (Trade) Dose Ordered Sig/Mayela Route PRN Reason Start Time Stop Time Status Last Admin Dose Admin Acetaminophen (Tylenol) 650 mg Q4H PRN GT back pain 05/06/20 15:15 06/05/20 15:14 05/16/20 07:27 Acetazolamide (Diamox) 250 mg TWICE A DAY GT 05/13/20 09:00 06/12/20 08:59 05/25/20 17:41 Amlodipine Besylate (Norvasc) 5 mg DAILY GT 05/07/20 09:00 06/06/20 08:59 05/25/20 08:51 Ascorbic Acid (Vitamin C) 500 mg DAILY GT 05/07/20 09:00 06/06/20 08:59 05/25/20 08:51 Aspirin (ASA) 81 mg DAILY GT 05/07/20 09:00 06/21/20 08:59 05/25/20 08:51 Carvedilol (Coreg) 3.125 mg EVERY 12 HOURS GT 05/07/20 09:00 06/06/20 08:59 05/25/20 20:48 Clonidine HCl (Catapres Tab) 0.1 mg Q4H PRN ORAL SBP >160 05/08/20 22:15 08/06/20 22:14 Dextrose 1,000 ml @ 100 mls/hr Q10H IV 05/23/20 14:00 06/22/20 13:59 05/25/20 21:42 Docusate Sodium (Colace) 200 mg BID GT 05/06/20 18:00 06/05/20 17:59 05/24/20 08:26 Heparin Sodium (Porcine) (Heparin 5000 units/ml) 5,000 units EVERY 12 HOURS SUBQ 05/08/20 09:00 06/22/20 08:59 05/25/20 20:51 Levetiracetam (Keppra) 250 mg DAILY GT 05/19/20 15:11 06/18/20 15:10 05/25/20 08:50 Methylprednisolone Sodium Succinate (Solu-MEDROL) 40 mg DAILY IVP 05/24/20 14:15 08/21/20 20:59 05/25/20 08:50 Multivitamins (Multivitamins W/ Minerals 15ml Liquid) 5 ml DAILY GT 05/07/20 09:00 06/06/20 08:59 05/25/20 08:59 Nitroglycerin (Nitro-Bid) 1 inch TID@0600,1200,1800 TOPIC 05/16/20 18:00 06/15/20 17:59 05/26/20 05:55 Potassium Chloride (K-Dur) 20 meq DAILY GT 05/13/20 09:00 08/11/20 08:59 05/25/20 08:51 Tamsulosin HCl (Flomax) 0.4 mg BEDTIME ORAL 05/06/20 21:00 06/05/20 20:59 05/25/20 20:48 Assessment/Plan Assessment/Plan ASSESSMENT: Pulmonary congestion, respiratory failure, hypoxemia dementia, G-tube, seizure disorder, congestive heart failure, COPD sepsis, and acute MN. acute on chronic CO2 retention PLAN: oxygen and need for BIPAP; repeat ABG today. Breathing treatments and aspiration precautions. Monitor blood gases for change.keep negative. seizure medications. feeds and monitor residuals; DNR noted DVT prophylaxis hope to maintain off BIPAP remains guarded d/w primary impression, plan, and exam edited and reviewed in detail care discussed with Attila Yuan MD May 26, 2020 08:21
[2020-05-26] MEDS: Ascorbic Acid 500mg tab GT SCH (08:54)
[2020-05-26] MEDS: levETIRAcetam 500mg/5ml Liquid GT SCH (08:55)
[2020-05-26] MEDS: Aspirin Baby 81mg GT SCH (08:56)
[2020-05-26] MEDS: Multivitamins W/Minerals 15 ML UDC GT SCH (08:57)
[2020-05-26] MEDS: Solu-MEDROL 40mg Inj IVP SCH (08:57)
--- NOTE | 2020-05-26 08:57 | General Progress Note ---
Subjective ROS Limited/Unobtainable: Yes Constitutional: Reports: malaise, weakness HEENT: Reports: no symptoms Cardiovascular: Reports: no symptoms Respiratory: Reports: shortness of breath Gastrointestinal/Abdominal: Reports: difficulty swallowing Genitourinary: Reports: no symptoms Neurologic/Psychiatric: Reports: pre-existing deficit, seizure Endocrine: Reports: no symptoms Hematologic/Lymphatic: Reports: anemia Allergies: Coded Allergies: PENICILLINS (Unverified Allergy, Unknown, 08/11/19) All Systems: reviewed and negative except above Subjective improving slowly. did not use bipap last night. nasal cannula during the day. alert. no szs. tolerating feeds. Objective Last 24 Hour Vital Signs Date Time Temp Pulse Resp B/P (MAP) Pulse Ox O2 Delivery O2 Flow Rate FiO2 05/26/20 05:55 137/56 05/26/20 04:00 Nasal Cannula 2.0 05/26/20 04:00 97.7 61 22 137/56 (83) 100 05/26/20 04:00 2.0 05/26/20 00:04 64 05/26/20 00:00 Nasal Cannula 2.0 05/26/20 00:00 96.9 100 18 115/60 (78) 100 05/25/20 23:55 2.0 05/25/20 20:48 73 120/65 05/25/20 20:00 Nasal Cannula 2.0 05/25/20 20:00 76 05/25/20 20:00 2.0 05/25/20 20:00 97.3 74 18 120/65 (83) 100 05/25/20 19:15 99 Nasal Cannula 3.0 32 05/25/20 17:41 121/61 05/25/20 16:00 97.6 70 18 121/61 (81) 100 05/25/20 16:00 71 05/25/20 16:00 2.0 05/25/20 16:00 Nasal Cannula 2.0 05/25/20 12:15 129/69 05/25/20 12:00 Nasal Cannula 2.0 05/25/20 12:00 97.2 71 20 129/69 (89) 100 05/25/20 12:00 Nasal Cannula 2.0 05/25/20 12:00 2.0 05/25/20 11:36 72 Intake and Output 05/25/20 05/26/20 19:00 07:00 Intake Total 1505 ml 1603.75 ml Output Total 300 ml 200 ml Balance 1205 ml 1403.75 ml Intake Free Water 115 ml 200 ml IV Total 910 ml 963.75 ml Tube Feeding 480 ml 440 ml Output Urine Total 300 ml 200 ml # Voids 5 # Bowel Movements 2 4 Laboratory Tests 05/26/20 04:26: White Blood Count 11.5H, Red Blood Count 4.01L, Hemoglobin 12.9L, Hematocrit 44.2, Mean Corpuscular Volume 110H, Mean Corpuscular Hemoglobin 32.3H, Mean Corpuscular Hemoglobin Concent 29.3L, Red Cell Distribution Width 14.2, Platelet Count 150, Mean Platelet Volume 10.8H, Neutrophils (%) (Auto) 74.2, Lymphocytes (%) (Auto) 14.3L, Monocytes (%) (Auto) 11.0H, Eosinophils (%) (Auto) 0.2, Basophils (%) (Auto) 0.3, Sodium Level 146H, Potassium Level 3.7, Chloride Level 108H, Carbon Dioxide Level 38H, Anion Gap 0L, Blood Urea Nitrogen 53H, Creatinine 0.7, Estimat Glomerular Filtration Rate > 60, Glucose Level 144H, Calcium Level 8.3L, Magnesium Level 2.6H, Total Bilirubin 0.3, Aspartate Amino Transf (AST/SGOT) 32, Alanine Aminotransferase (ALT/SGPT) 91H, Alkaline Phosphatase 85, Pro-B-Type Natriuretic Peptide 1056H, Total Protein 6.5, Albumin 2.7L, Globulin 3.8, Albumin/Globulin Ratio 0.7L Height (Feet): 5 Height (Inches): 6.00 Weight (Pounds): 137 Objective General Appearance: WD/WN, alert, confused EENT: normal ENT inspection Neck: normal alignment Cardiovascular: normal rate Respiratory/Chest: chest wall non-tender, lungs clear, normal breath sounds Abdomen: normal bowel sounds, non tender, soft, no organomegaly Edema: no edema noted Arm (L), no edema noted Arm (R) Neurologic: alert, disoriented Assessment/Plan Problem List: (1) Seizure ICD Codes: R56.9 - Unspecified convulsions SNOMED: 01731696 (2) Dysphagia ICD Codes: R13.10 - Dysphagia, unspecified SNOMED: 72889237, 097263883 (3) UTI (urinary tract infection) ICD Codes: N39.0 - Urinary tract infection, site not specified SNOMED: 90932377 (4) Elevated troponin I level ICD Codes: R77.8 - Other specified abnormalities of plasma proteins SNOMED: 456564540 (5) AMS (altered mental status) ICD Codes: R41.82 - Altered mental status, unspecified SNOMED: 199105851 (6) NSTEMI (non-ST elevated myocardial infarction) ICD Codes: I21.4 - Non-ST elevation (NSTEMI) myocardial infarction SNOMED: 91584288 Status: stable Assessment/Plan: bipap qhs nd prn wean o2 during the day check abg iv steroids dcd tube feeds monitor residual monitor for vomiting sz rx iv abx cxr reviewed- stable monitor labs anxiolytics as needed o2 resp rx dvt/stress ulcer prophylaxis. hypotonic ivf Jorge Kee MD May 26, 2020 08:57
[2020-05-26] MEDS: Heparin 5000 units/ml inj SUBQ SCH ×2 (08:59→20:28)
[2020-05-26] MEDS: Docusate 100mg/10ml Liq GT SCH ×2 (09:00→17:47)
--- NOTE | 2020-05-26 10:53 | Diagnostic Imaging Report ---
Indication: Reason For Exam: SOB Technique: Single AP view of the chest. Comparison: Chest radiograph dated 05/19/2020 Findings: The cardiomediastinal silhouette is unchanged in appearance. Low lung volumes limit evaluation of the lung parenchyma. Redemonstration of trace bilateral pleural effusions with associated bibasilar airspace opacities. Interval increase in pulmonary vascular congestion. No pneumothorax. No acute osseous abnormality is. IMPRESSION: 1. Increasing pulmonary vascular congestion. 2. Trace bilateral pleural effusions with associated basilar airspace opacities, similar to prior examination.
--- NOTE | 2020-05-26 11:37 | Infectious Diseases Prog Note ---
Assessment/Plan Assessment/Plan antibiotics : none A 1. Urinary tract infection with E. coli s/p rx 2. MRSA nasal colonization. 3. CHF. 4. COPD. 5. Seizures. 6. Dementia. 7. He is negative for COVID-19. P 1. continue off antibiotics Subjective ROS Limited/Unobtainable: Yes Allergies: Coded Allergies: PENICILLINS (Unverified Allergy, Unknown, 08/11/19) Objective Last 24 Hour Vital Signs Date Time Temp Pulse Resp B/P (MAP) Pulse Ox O2 Delivery O2 Flow Rate FiO2 05/26/20 08:56 83 105/58 05/26/20 08:55 83 105/58 05/26/20 08:00 58 05/26/20 08:00 97.3 83 16 105/58 (74) 100 05/26/20 08:00 Nasal Cannula 3.0 05/26/20 08:00 3.0 05/26/20 07:30 100 Nasal Cannula 3.0 32 05/26/20 05:55 137/56 05/26/20 04:00 Nasal Cannula 2.0 05/26/20 04:00 97.7 61 22 137/56 (83) 100 05/26/20 04:00 2.0 05/26/20 00:04 64 05/26/20 00:00 Nasal Cannula 2.0 05/26/20 00:00 96.9 100 18 115/60 (78) 100 05/25/20 23:55 2.0 05/25/20 20:48 73 120/65 05/25/20 20:00 Nasal Cannula 2.0 05/25/20 20:00 76 05/25/20 20:00 2.0 05/25/20 20:00 97.3 74 18 120/65 (83) 100 05/25/20 19:15 99 Nasal Cannula 3.0 32 05/25/20 17:41 121/61 05/25/20 16:00 97.6 70 18 121/61 (81) 100 05/25/20 16:00 71 05/25/20 16:00 2.0 05/25/20 16:00 Nasal Cannula 2.0 05/25/20 12:15 129/69 05/25/20 12:00 Nasal Cannula 2.0 05/25/20 12:00 97.2 71 20 129/69 (89) 100 05/25/20 12:00 Nasal Cannula 2.0 05/25/20 12:00 2.0 Height (Feet): 5 Height (Inches): 6.00 Weight (Pounds): 137 Respiratory/Chest: lungs clear Cardiovascular: normal rate, regular rhythm, no gallop/murmur Abdomen: soft, non tender, other - GT Extremities: no edema Laboratory Tests Test 05/26/20 04:26 White Blood Count 11.5 K/UL (4.8-10.8) H Red Blood Count 4.01 M/UL (4.70-6.10) L Hemoglobin 12.9 G/DL (14.2-18.0) L Hematocrit 44.2 % (42.0-52.0) Mean Corpuscular Volume 110 FL (80-99) H Mean Corpuscular Hemoglobin 32.3 PG (27.0-31.0) H Mean Corpuscular Hemoglobin Concent 29.3 G/DL (32.0-36.0) L Red Cell Distribution Width 14.2 % (11.6-14.8) Platelet Count 150 K/UL (150-450) Mean Platelet Volume 10.8 FL (6.5-10.1) H Neutrophils (%) (Auto) 74.2 % (45.0-75.0) Lymphocytes (%) (Auto) 14.3 % (20.0-45.0) L Monocytes (%) (Auto) 11.0 % (1.0-10.0) H Eosinophils (%) (Auto) 0.2 % (0.0-3.0) Basophils (%) (Auto) 0.3 % (0.0-2.0) Sodium Level 146 MMOL/L (136-145) H Potassium Level 3.7 MMOL/L (3.5-5.1) Chloride Level 108 MMOL/L (98-107) H Carbon Dioxide Level 38 MMOL/L (21-32) H Anion Gap 0 mmol/L (5-15) L Blood Urea Nitrogen 53 mg/dL (7-18) H Creatinine 0.7 MG/DL (0.55-1.30) Estimat Glomerular Filtration Rate > 60 mL/min (>60) Glucose Level 144 MG/DL (74-106) H Calcium Level 8.3 MG/DL (8.5-10.1) L Magnesium Level 2.6 MG/DL (1.8-2.4) H Total Bilirubin 0.3 MG/DL (0.2-1.0) Aspartate Amino Transf (AST/SGOT) 32 U/L (15-37) Alanine Aminotransferase (ALT/SGPT) 91 U/L (12-78) H Alkaline Phosphatase 85 U/L (46-116) Pro-B-Type Natriuretic Peptide 1056 pg/mL (0-125) H Total Protein 6.5 G/DL (6.4-8.2) Albumin 2.7 G/DL (3.4-5.0) L Globulin 3.8 g/dL Albumin/Globulin Ratio 0.7 (1.0-2.7) L Current Medications Medications (Trade) Dose Ordered Sig/Mayela Route PRN Reason Start Time Stop Time Status Last Admin Dose Admin Acetaminophen (Tylenol) 650 mg Q4H PRN GT back pain 05/06/20 15:15 06/05/20 15:14 05/16/20 07:27 Acetazolamide (Diamox) 250 mg TWICE A DAY GT 05/13/20 09:00 06/12/20 08:59 05/26/20 08:57 Amlodipine Besylate (Norvasc) 5 mg DAILY GT 05/07/20 09:00 06/06/20 08:59 05/26/20 08:55 Ascorbic Acid (Vitamin C) 500 mg DAILY GT 05/07/20 09:00 06/06/20 08:59 05/26/20 08:54 Aspirin (ASA) 81 mg DAILY GT 05/07/20 09:00 06/21/20 08:59 05/26/20 08:56 Carvedilol (Coreg) 3.125 mg EVERY 12 HOURS GT 05/07/20 09:00 06/06/20 08:59 05/26/20 08:56 Clonidine HCl (Catapres Tab) 0.1 mg Q4H PRN ORAL SBP >160 05/08/20 22:15 08/06/20 22:14 Dextrose 1,000 ml @ 100 mls/hr Q10H IV 05/23/20 14:00 06/22/20 13:59 05/26/20 08:43 Docusate Sodium (Colace) 200 mg BID GT 05/06/20 18:00 11/26/20 17:59 05/24/20 08:26 Heparin Sodium (Porcine) (Heparin 5000 units/ml) 5,000 units EVERY 12 HOURS SUBQ 05/08/20 09:00 06/22/20 08:59 05/26/20 08:59 Levetiracetam (Keppra) 250 mg DAILY GT 05/19/20 15:11 06/18/20 15:10 05/26/20 08:55 Multivitamins (Multivitamins W/ Minerals 15ml Liquid) 5 ml DAILY GT 05/07/20 09:00 06/06/20 08:59 05/26/20 08:57 Nitroglycerin (Nitro-Bid) 1 inch TID@0600,1200,1800 TOPIC 05/16/20 18:00 06/15/20 17:59 05/26/20 05:55 Potassium Chloride (K-Dur) 20 meq DAILY GT 05/13/20 09:00 08/11/20 08:59 05/26/20 08:54 Tamsulosin HCl (Flomax) 0.4 mg BEDTIME ORAL 05/06/20 21:00 06/05/20 20:59 05/25/20 20:48 Josué Light MD May 26, 2020 11:37
[2020-05-26 12:00] VITALS: BP 116/62
--- NOTE | 2020-05-26 12:03 | Diagnostic Imaging Report ---
Indication: Arm pain and swelling Technique: Grayscale and duplex Doppler imaging of the veins in both upper extremities performed in real time utilizing compression and spectral Doppler. Comparison: None Findings: Duplex Doppler interrogation of the veins in both upper extremity is performed from the internal jugular veins to the radial and ulnar veins. No thrombus is identified. Basilic and cephalic veins are also patent bilaterally. There is mild subcutaneous edema of the right upper extremity. IMPRESSION: No evidence of deep venous thrombosis involving the upper extremities.
[2020-05-26 16:00] VITALS: BP 117/56
--- NOTE | 2020-05-26 18:53 | Surgery Progress Note ---
Surgery Progress Note Subjective Additional Comments ill appearing wbc 11k duplex noted electrolytes being replaced no n/v Objective Last 24 Hour Vital Signs Date Time Temp Pulse Resp B/P (MAP) Pulse Ox O2 Delivery O2 Flow Rate FiO2 05/26/20 17:46 117/56 05/26/20 16:00 98.1 62 17 117/56 (76) 99 05/26/20 15:20 60 24 100 30 05/26/20 12:25 116/62 05/26/20 12:00 3.0 05/26/20 12:00 98.7 59 16 116/62 (80) 100 05/26/20 12:00 Nasal Cannula 3.0 05/26/20 12:00 59 05/26/20 08:56 83 105/58 05/26/20 08:55 83 105/58 05/26/20 08:00 58 05/26/20 08:00 97.3 83 16 105/58 (74) 100 05/26/20 08:00 Nasal Cannula 3.0 05/26/20 08:00 3.0 05/26/20 07:30 100 Nasal Cannula 3.0 32 05/26/20 05:55 137/56 05/26/20 04:00 Nasal Cannula 2.0 05/26/20 04:00 97.7 61 22 137/56 (83) 100 05/26/20 04:00 2.0 05/26/20 00:04 64 05/26/20 00:00 Nasal Cannula 2.0 05/26/20 00:00 96.9 100 18 115/60 (78) 100 05/25/20 23:55 2.0 05/25/20 20:48 73 120/65 05/25/20 20:00 Nasal Cannula 2.0 05/25/20 20:00 76 05/25/20 20:00 2.0 05/25/20 20:00 97.3 74 18 120/65 (83) 100 05/25/20 19:15 99 Nasal Cannula 3.0 32 I&O l Intake and Output 05/25/20 05/26/20 19:00 07:00 Intake Total 1505 ml 1743.75 ml Output Total 300 ml 200 ml Balance 1205 ml 1543.75 ml Intake Free Water 115 ml 200 ml IV Total 910 ml 1063.75 ml Tube Feeding 480 ml 480 ml Output Urine Total 300 ml 200 ml # Voids 5 # Bowel Movements 2 4 Dressing: saturated Cardiovascular: RSR Respiratory: decreased breath sounds Abdomen: soft, non-tender, present bowel sounds Extremities: no tenderness, no cyanosis Laboratory Tests Test 05/26/20 04:26 05/26/20 14:31 White Blood Count 11.5 K/UL (4.8-10.8) H Red Blood Count 4.01 M/UL (4.70-6.10) L Hemoglobin 12.9 G/DL (14.2-18.0) L Hematocrit 44.2 % (42.0-52.0) Mean Corpuscular Volume 110 FL (80-99) H Mean Corpuscular Hemoglobin 32.3 PG (27.0-31.0) H Mean Corpuscular Hemoglobin Concent 29.3 G/DL (32.0-36.0) L Red Cell Distribution Width 14.2 % (11.6-14.8) Platelet Count 150 K/UL (150-450) Mean Platelet Volume 10.8 FL (6.5-10.1) H Neutrophils (%) (Auto) 74.2 % (45.0-75.0) Lymphocytes (%) (Auto) 14.3 % (20.0-45.0) L Monocytes (%) (Auto) 11.0 % (1.0-10.0) H Eosinophils (%) (Auto) 0.2 % (0.0-3.0) Basophils (%) (Auto) 0.3 % (0.0-2.0) Sodium Level 146 MMOL/L (136-145) H Potassium Level 3.7 MMOL/L (3.5-5.1) Chloride Level 108 MMOL/L (98-107) H Carbon Dioxide Level 38 MMOL/L (21-32) H Anion Gap 0 mmol/L (5-15) L Blood Urea Nitrogen 53 mg/dL (7-18) H Creatinine 0.7 MG/DL (0.55-1.30) Estimat Glomerular Filtration Rate > 60 mL/min (>60) Glucose Level 144 MG/DL (74-106) H Calcium Level 8.3 MG/DL (8.5-10.1) L Magnesium Level 2.6 MG/DL (1.8-2.4) H Total Bilirubin 0.3 MG/DL (0.2-1.0) Aspartate Amino Transf (AST/SGOT) 32 U/L (15-37) Alanine Aminotransferase (ALT/SGPT) 91 U/L (12-78) H Alkaline Phosphatase 85 U/L (46-116) Pro-B-Type Natriuretic Peptide 1056 pg/mL (0-125) H Total Protein 6.5 G/DL (6.4-8.2) Albumin 2.7 G/DL (3.4-5.0) L Globulin 3.8 g/dL Albumin/Globulin Ratio 0.7 (1.0-2.7) L Arterial Blood pH 7.210 (7.350-7.450) Arterial Blood Partial Pressure CO2 105.8 mmHg (35.0-45.0) *H Arterial Blood Partial Pressure O2 103.6 mmHg (75.0-100.0) H Arterial Blood HCO3 41.4 mmol/L (22.0-26.0) *H Arterial Blood Oxygen Saturation 97.5 % (95-100) Arterial Blood Base Excess 9.6 (-2-2) *H Apollo Test Positive Plan Problems: (1) Deep tissue injury Assessment & Plan: Patient identified to have bilateral heel concerns for potential developing DTI. Soft boggy no fluid collection no acute injury at this time. Patient identified to have sacral erythema and skin changes with concerns for developing deep tissue injury as well. No open areas. No fluid collections no fluctuance no drainage. On the scrotum patient is identified to have edema erythema and some abrasion along with incontinence associated dermatitis in the area. Patient identified to have abrasion to the nasal brim secondary to a facemask placement. Patient is chronically ill elderly and malnourished. Wound evaluated and care plan initiated. Treatment plan Apply skin protectant to the nasal bridge followed by foam dressing prior to facemask placement. Patient currently requires oxygen supplementation and therefore important to ensure receiving such along with protection of underlying epidermis. Apply OPTi foam to heels change every 3 days offload pressure with pillows Apply OPTi foam to sacral area monitor for incontinence change accordingly every 3 days and as needed saturation. Soft towel under scrotum. Continue with respiratory supportive care Turn every 2 hours Offload pressure with pillows Continue tube feeds nutritional optimization we will follow with recommendations thank you for let me participate patient's care (2) Dementia with behavioral problem (3) UTI (urinary tract infection) (4) Elevated troponin I level (5) AMS (altered mental status) (6) Dysphagia Assessment & Plan: DAILY ESTIMATED NEEDS: Needs based on Pulmonary, cardiac, 62kg 25-30 kcals/kg 1110-5962 total kcals 1-1.5 g protein/kg 62-93 g total protein 25-30 mL/kg 1911-5030 total fluid mLs NUTRITION DIAGNOSIS: Swallowing difficulty r/t dysphagia as evidenced by pt is PEG dep, currently on continuous BIPAP. CURRENT TF: Glucerna 1.5 @ 40ml/hr ENTERAL NUTRITION RECOMMENDATIONS: Glucerna 1.5 goal of 45ml/hr x 24 hrs to provide 1080ml, 1620 kcal, 89g pro, 820ml free water * Maintain carb controlled TF of Glucerna 1.5 while CO2 critically elevated * As medically appropriate, increase goal rate to 45ml/hr x 24 hrs to better meet nutritional needs. * HOB over 30 degrees/ water flush per MD ADDITIONAL RECOMMENDATIONS: 1) Monitor BIPAP usage, safety of GT feeds -> continuous BIPAP at this time 2) Lytes daily, replete as needed Current TF Glucerna 1.5 @goal of 40ml/hr provides 2419mg K/day 3) Calibrated bed scale wts (Bed scale shows uptrend: 65kg-> 71kg) 4) Rec HgA1C for eval of BG control 5) F/up w/ WC eval: Continue MVI and Vit C (7) Seizure (8) NSTEMI (non-ST elevated myocardial infarction) (9) Respiratory insufficiency Assessment & Plan: constant required bipap ? trach dnr/dni discussed with pcp and pulm Duplex Doppler interrogation of the veins in both upper extremity is performed from the internal jugular veins to the radial and ulnar veins. No thrombus is identified. Basilic and cephalic veins are also patent bilaterally. There is mild subcutaneous edema of the right upper extremity. IMPRESSION: No evidence of deep venous thrombosis involving the upper extremities. Benitez Mayorga May 26, 2020 18:53
[2020-05-26] MEDS ORDERED: NS 275ml ONE (19:32)
[2020-05-26 20:00] VITALS: BP 119/62
[2020-05-26] MEDS: Tamsulosin 0.4mg cap ORAL SCH (20:26)
--- NOTE | 2020-05-26 23:32 | Cardiology Progress Note ---
Subjective DATE OF SERVICE: May 26, 2020 Now on bipap at [facility], with nasal cannula during the day. (05/22/20) 7.31/78/75 CXR (05/26) no change in bilateral airspace disease. Mild CHF BP remains well controlled. Monitor: sinus with rare atrial ectopy. Objective Last 24 Hour Vital Signs Date Time Temp Pulse Resp B/P (MAP) Pulse Ox O2 Delivery O2 Flow Rate FiO2 05/26/20 23:06 62 28 97 30 05/26/20 21:08 64 29 98 30 05/26/20 20:27 65 119/62 05/26/20 20:00 30 05/26/20 20:00 98.2 64 20 119/62 (81) 97 05/26/20 20:00 68 05/26/20 20:00 Bi-pap 05/26/20 19:10 98 Bi-Pap 30 05/26/20 19:10 69 28 98 30 05/26/20 17:46 117/56 05/26/20 16:00 61 05/26/20 16:00 30 05/26/20 16:00 98.1 62 17 117/56 (76) 99 05/26/20 16:00 Bi-pap 30.0 05/26/20 15:20 60 24 100 30 05/26/20 12:25 116/62 05/26/20 12:00 3.0 05/26/20 12:00 98.7 59 16 116/62 (80) 100 05/26/20 12:00 Nasal Cannula 3.0 05/26/20 12:00 59 05/26/20 08:56 83 105/58 05/26/20 08:55 83 105/58 05/26/20 08:00 58 05/26/20 08:00 97.3 83 16 105/58 (74) 100 05/26/20 08:00 Nasal Cannula 3.0 05/26/20 08:00 3.0 05/26/20 07:30 100 Nasal Cannula 3.0 32 05/26/20 05:55 137/56 05/26/20 04:00 Nasal Cannula 2.0 05/26/20 04:00 97.7 61 22 137/56 (83) 100 05/26/20 04:00 2.0 05/26/20 00:04 64 05/26/20 00:00 Nasal Cannula 2.0 05/26/20 00:00 96.9 100 18 115/60 (78) 100 05/25/20 23:55 2.0 ROS: unchanged from my evaluation of 05/06/20 RHYTHM: NSR LUNGS: diminished breath sounds CARDIAC: normal rate, regular rhythm, normal S1 and S2 ABDOMEN: non tender, soft, G-Tube intact EXTREMITIES: non-pitting, No edema Laboratory Tests Test 05/26/20 04:26 05/26/20 14:31 05/26/20 18:55 White Blood Count 11.5 K/UL (4.8-10.8) H Red Blood Count 4.01 M/UL (4.70-6.10) L Hemoglobin 12.9 G/DL (14.2-18.0) L Hematocrit 44.2 % (42.0-52.0) Mean Corpuscular Volume 110 FL (80-99) H Mean Corpuscular Hemoglobin 32.3 PG (27.0-31.0) H Mean Corpuscular Hemoglobin Concent 29.3 G/DL (32.0-36.0) L Red Cell Distribution Width 14.2 % (11.6-14.8) Platelet Count 150 K/UL (150-450) Mean Platelet Volume 10.8 FL (6.5-10.1) H Neutrophils (%) (Auto) 74.2 % (45.0-75.0) Lymphocytes (%) (Auto) 14.3 % (20.0-45.0) L Monocytes (%) (Auto) 11.0 % (1.0-10.0) H Eosinophils (%) (Auto) 0.2 % (0.0-3.0) Basophils (%) (Auto) 0.3 % (0.0-2.0) Sodium Level 146 MMOL/L (136-145) H Potassium Level 3.7 MMOL/L (3.5-5.1) Chloride Level 108 MMOL/L (98-107) H Carbon Dioxide Level 38 MMOL/L (21-32) H Anion Gap 0 mmol/L (5-15) L Blood Urea Nitrogen 53 mg/dL (7-18) H Creatinine 0.7 MG/DL (0.55-1.30) Estimat Glomerular Filtration Rate > 60 mL/min (>60) Glucose Level 144 MG/DL (74-106) H Calcium Level 8.3 MG/DL (8.5-10.1) L Magnesium Level 2.6 MG/DL (1.8-2.4) H Total Bilirubin 0.3 MG/DL (0.2-1.0) Aspartate Amino Transf (AST/SGOT) 32 U/L (15-37) Alanine Aminotransferase (ALT/SGPT) 91 U/L (12-78) H Alkaline Phosphatase 85 U/L (46-116) Pro-B-Type Natriuretic Peptide 1056 pg/mL (0-125) H Total Protein 6.5 G/DL (6.4-8.2) Albumin 2.7 G/DL (3.4-5.0) L Globulin 3.8 g/dL Albumin/Globulin Ratio 0.7 (1.0-2.7) L Arterial Blood pH 7.210 (7.350-7.450) 7.311 (7.350-7.450) Arterial Blood Partial Pressure CO2 105.8 mmHg (35.0-45.0) *H 78.0 mmHg (35.0-45.0) *H Arterial Blood Partial Pressure O2 103.6 mmHg (75.0-100.0) H 74.9 mmHg (75.0-100.0) L Arterial Blood HCO3 41.4 mmol/L (22.0-26.0) *H 38.5 mmol/L (22.0-26.0) H Arterial Blood Oxygen Saturation 97.5 % (95-100) 95.6 % (95-100) Arterial Blood Base Excess 9.6 (-2-2) *H 9.5 (-2-2) *H Apollo Test Positive Positive Assessment/Plan Assessment/Plan E.coli UTI Sepsis Metabolic and toxic encephalopathies Cerebrovascular disease with dementia Acute myocardial ischemia and possible NSTEMI Dehydration/hypernatremia resolving Hypertension/HHD Ac/chronic respiratory acidosis - worse today Respiratory failure still requiring bipap support Ac diastolic CHF; BNP continues improvement. Metabolic acidosis Pleural effusions Ac/chr renal failure with azotemia Continue anti-anginal regimen; titrate meds for BP control. Maintain nitrates. Antimicrobials No diuresis until free water deficit corrected; continuing free water replacement. Monitor acid-base parameters. Bipap support with taper Real Magana MD May 26, 2020 23:32
[2020-05-27] VITALS: BP 101/54
[2020-05-27 04:00] VITALS: BP 105/57
[2020-05-27] MEDS: Nitroglycerin 2% oint pkt TOPIC SCH ×3 (05:12→18:23)
[2020-05-27 05:14] LABS: BASOPHILS % (AUTO) 0.4 % (0.0-2.0); EOSINOPHILS % (AUTO) 0.2 % (0.0-3.0); HEMATOCRIT 37.7 % (42.0-52.0); HEMOGLOBIN 11.4 G/DL (14.2-18.0); LYMPHOCYTES % (AUTO) 17.7 % (20.0-45.0); MEAN CORPUSCULAR VOLUME 107 FL (80-99); MONOCYTES % (AUTO) 10.2 % (1.0-10.0); NEUTROPHILS % (AUTO) 71.6 % (45.0-75.0); PLATELET COUNT 135 K/UL (150-450); RED BLOOD COUNT 3.52 M/UL (4.70-6.10); RED CELL DISTRIBUTION WIDTH 13.7 % (11.6-14.8); WHITE BLOOD COUNT 11.3 K/UL (4.8-10.8)
[2020-05-27 05:41] LABS: ALANINE AMINOTRANSFERASE 63 U/L (12-78); ALBUMIN 2.4 G/DL (3.4-5.0); ALBUMIN/GLOBULIN RATIO 0.7 (1.0-2.7); ALKALINE PHOSPHATASE 68 U/L (46-116); ANION GAP -1 mmol/L (5-15); ASPARTATE AMINO TRANSFERASE 17 U/L (15-37); BILIRUBIN,TOTAL 0.6 MG/DL (0.2-1.0); BLOOD UREA NITROGEN 30 mg/dL (7-18); CALCIUM 7.9 MG/DL (8.5-10.1); CARBON DIOXIDE 38 MMOL/L (21-32); CHLORIDE 101 MMOL/L (98-107); CREATININE 0.6 MG/DL (0.55-1.30); POTASSIUM 3.7 MMOL/L (3.5-5.1); SODIUM 138 MMOL/L (136-145)
[2020-05-27 08:00] VITALS: BP 99/51
--- NOTE | 2020-05-27 08:24 | Pulmonology Progress Note ---
Subjective ROS Limited/Unobtainable: Yes Constitutional: Denies: fever Allergies: Coded Allergies: PENICILLINS (Unverified Allergy, Unknown, 08/11/19) All Systems: reviewed and negative except above Subjective care noted back on BIPAP worsening co2 retention imaging noted Objective Last 24 Hour Vital Signs Date Time Temp Pulse Resp B/P (MAP) Pulse Ox O2 Delivery O2 Flow Rate FiO2 05/27/20 05:30 59 29 99 30 05/27/20 05:12 102/60 05/27/20 04:00 Bi-pap 05/27/20 04:00 97.7 64 20 105/57 (73) 99 05/27/20 04:00 30 05/27/20 04:00 57 05/27/20 03:22 63 26 99 30 05/27/20 01:27 74 26 99 30 05/27/20 00:00 60 05/27/20 00:00 Bi-pap 05/27/20 00:00 97.7 67 19 101/54 (70) 98 05/27/20 00:00 30 05/26/20 23:06 62 28 97 30 05/26/20 21:08 64 29 98 30 05/26/20 20:27 65 119/62 05/26/20 20:00 30 05/26/20 20:00 98.2 64 20 119/62 (81) 97 05/26/20 20:00 68 05/26/20 20:00 Bi-pap 05/26/20 19:10 98 Bi-Pap 30 05/26/20 19:10 69 28 98 30 05/26/20 17:46 117/56 05/26/20 16:00 61 05/26/20 16:00 30 05/26/20 16:00 98.1 62 17 117/56 (76) 99 05/26/20 16:00 Bi-pap 30.0 05/26/20 15:20 60 24 100 30 05/26/20 12:25 116/62 05/26/20 12:00 3.0 05/26/20 12:00 98.7 59 16 116/62 (80) 100 05/26/20 12:00 Nasal Cannula 3.0 05/26/20 12:00 59 05/26/20 08:56 83 105/58 05/26/20 08:55 83 105/58 Intake and Output 05/26/20 05/27/20 19:00 07:00 Intake Total 1715 ml 1765 ml Output Total 800 ml 600 ml Balance 915 ml 1165 ml Intake Free Water 75 ml 225 ml IV Total 1200 ml 1000 ml Tube Feeding 440 ml 540 ml Output Urine Total 800 ml 600 ml # Bowel Movements 4 1 Objective WDWN NAD reduced breath sounds bilaterally without rhonchi [id number] without MRG NABS nontender no CC mild edema nonfocal on BIPAP reduced LOC Laboratory Tests 05/26/20 14:31: Arterial Blood pH 7.210*L, Arterial Blood Partial Pressure CO2 105.8*H, Arterial Blood Partial Pressure O2 103.6H, Arterial Blood HCO3 41.4*H, Arterial Blood Oxygen Saturation 97.5, Arterial Blood Base Excess 9.6*H, Apollo Test Positive 05/26/20 18:55: Arterial Blood pH 7.311L, Arterial Blood Partial Pressure CO2 78.0*H, Arterial Blood Partial Pressure O2 74.9L, Arterial Blood HCO3 38.5H, Arterial Blood Oxygen Saturation 95.6, Arterial Blood Base Excess 9.5*H, Apollo Test Positive 05/27/20 03:35: White Blood Count 11.3H, Red Blood Count 3.52L, Hemoglobin 11.4L, Hematocrit 37.7L, Mean Corpuscular Volume 107H, Mean Corpuscular Hemoglobin 32.3H, Mean Corpuscular Hemoglobin Concent 30.2L, Red Cell Distribution Width 13.7, Platelet Count 135L, Mean Platelet Volume 11.6H, Neutrophils (%) (Auto) 71.6, Lymphocytes (%) (Auto) 17.7L, Monocytes (%) (Auto) 10.2H, Eosinophils (%) (Auto) 0.2, Basophils (%) (Auto) 0.4, Sodium Level 138, Potassium Level 3.7, Chloride Level 101, Carbon Dioxide Level 38H, Anion Gap -1L, Blood Urea Nitrogen 30H, Creatinine 0.6, Estimat Glomerular Filtration Rate > 60, Glucose Level 153H, Calcium Level 7.9L, Total Bilirubin 0.6, Aspartate Amino Transf (AST/SGOT) 17, Alanine Aminotransferase (ALT/SGPT) 63, Alkaline Phosphatase 68, Total Protein 5.9L, Albumin 2.4L, Globulin 3.5, Albumin/Globulin Ratio 0.7L 05/27/20 05:22: Stool Occult Blood [Pending] Current Medications Medications (Trade) Dose Ordered Sig/Mayela Route PRN Reason Start Time Stop Time Status Last Admin Dose Admin Acetaminophen (Tylenol) 650 mg Q4H PRN GT back pain 05/06/20 15:15 06/05/20 15:14 05/16/20 07:27 Acetazolamide (Diamox) 250 mg TWICE A DAY GT 05/13/20 09:00 06/12/20 08:59 05/26/20 17:46 Amlodipine Besylate (Norvasc) 5 mg DAILY GT 05/07/20 09:00 06/06/20 08:59 05/26/20 08:55 Ascorbic Acid (Vitamin C) 500 mg DAILY GT 05/07/20 09:00 06/06/20 08:59 05/26/20 08:54 Carvedilol (Coreg) 3.125 mg EVERY 12 HOURS GT 05/07/20 09:00 06/06/20 08:59 05/26/20 20:27 Clonidine HCl (Catapres Tab) 0.1 mg Q4H PRN ORAL SBP >160 05/08/20 22:15 08/06/20 22:14 Dextrose 1,000 ml @ 100 mls/hr Q10H IV 05/23/20 14:00 06/22/20 13:59 05/27/20 04:01 Docusate Sodium (Colace) 200 mg BID GT 05/06/20 18:00 06/05/20 17:59 05/24/20 08:26 Heparin Sodium (Porcine) (Heparin 5000 units/ml) 5,000 units EVERY 12 HOURS SUBQ 05/08/20 09:00 06/22/20 08:59 05/26/20 20:28 Levetiracetam (Keppra) 250 mg DAILY GT 05/19/20 15:11 06/18/20 15:10 05/26/20 08:55 Multivitamins (Multivitamins W/ Minerals 15ml Liquid) 5 ml DAILY GT 05/07/20 09:00 06/06/20 08:59 05/26/20 08:57 Nitroglycerin (Nitro-Bid) 1 inch TID@0600,1200,1800 TOPIC 05/16/20 18:00 06/15/20 17:59 05/27/20 05:12 Potassium Chloride (K-Dur) 20 meq DAILY GT 05/13/20 09:00 08/11/20 08:59 05/26/20 08:54 Tamsulosin HCl (Flomax) 0.4 mg BEDTIME ORAL 05/06/20 21:00 06/05/20 20:59 05/26/20 20:26 Assessment/Plan Assessment/Plan ASSESSMENT: Pulmonary congestion, respiratory failure, hypoxemia dementia, G-tube, seizure disorder, congestive heart failure, COPD sepsis, and acute FL. acute on chronic CO2 retention PLAN: oxygen and need for BIPAP; repeat ABG noted. Breathing treatments and aspiration precautions. Monitor blood gases for change.keep negative. seizure medications. feeds and monitor residuals; DNR noted DVT prophylaxis significant CO2 retention without BIPAP needs chronic therapy remains guarded d/w primary impression, plan, and exam edited and reviewed in detail care discussed with Attila Yuan MD May 27, 2020 08:24
[2020-05-27] MEDS: Multivitamins W/Minerals 15 ML UDC GT SCH (09:00)
[2020-05-27] MEDS: Heparin 5000 units/ml inj SUBQ SCH ×2 (09:00→20:05)
--- NOTE | 2020-05-27 09:36 | General Progress Note ---
Subjective ROS Limited/Unobtainable: No Constitutional: Reports: malaise, weakness HEENT: Reports: no symptoms Cardiovascular: Reports: no symptoms Respiratory: Reports: cough, shortness of breath Gastrointestinal/Abdominal: Reports: difficulty swallowing Genitourinary: Reports: no symptoms Neurologic/Psychiatric: Reports: pre-existing deficit, seizure Endocrine: Reports: no symptoms Hematologic/Lymphatic: Reports: anemia Allergies: Coded Allergies: PENICILLINS (Unverified Allergy, Unknown, 08/11/19) All Systems: reviewed and negative except above Subjective back on bipap due to high co2. abg improving but not normal. awake but confused. tolerating feeds. no fever or chills. no sz. pulm noted. Objective Last 24 Hour Vital Signs Date Time Temp Pulse Resp B/P (MAP) Pulse Ox O2 Delivery O2 Flow Rate FiO2 05/27/20 08:00 30 05/27/20 08:00 98.1 61 16 99/51 (67) 99 05/27/20 08:00 Bi-pap 05/27/20 05:30 59 29 99 30 05/27/20 05:12 102/60 05/27/20 04:00 Bi-pap 05/27/20 04:00 97.7 64 20 105/57 (73) 99 05/27/20 04:00 30 05/27/20 04:00 57 05/27/20 03:22 63 26 99 30 05/27/20 01:27 74 26 99 30 05/27/20 00:00 60 05/27/20 00:00 Bi-pap 05/27/20 00:00 97.7 67 19 101/54 (70) 98 05/27/20 00:00 30 05/26/20 23:06 62 28 97 30 05/26/20 21:08 64 29 98 30 05/26/20 20:27 65 119/62 05/26/20 20:00 30 05/26/20 20:00 98.2 64 20 119/62 (81) 97 05/26/20 20:00 68 05/26/20 20:00 Bi-pap 05/26/20 19:10 98 Bi-Pap 30 05/26/20 19:10 69 28 98 30 05/26/20 17:46 117/56 05/26/20 16:00 61 05/26/20 16:00 30 05/26/20 16:00 98.1 62 17 117/56 (76) 99 05/26/20 16:00 Bi-pap 30.0 05/26/20 15:20 60 24 100 30 05/26/20 12:25 116/62 05/26/20 12:00 3.0 05/26/20 12:00 98.7 59 16 116/62 (80) 100 05/26/20 12:00 Nasal Cannula 3.0 05/26/20 12:00 59 Intake and Output 05/26/20 05/27/20 19:00 07:00 Intake Total 1715 ml 1765 ml Output Total 800 ml 600 ml Balance 915 ml 1165 ml Intake Free Water 75 ml 225 ml IV Total 1200 ml 1000 ml Tube Feeding 440 ml 540 ml Output Urine Total 800 ml 600 ml # Bowel Movements 4 1 Laboratory Tests 05/26/20 14:31: Arterial Blood pH 7.210*L, Arterial Blood Partial Pressure CO2 105.8*H, Arterial Blood Partial Pressure O2 103.6H, Arterial Blood HCO3 41.4*H, Arterial Blood Oxygen Saturation 97.5, Arterial Blood Base Excess 9.6*H, Apollo Test Positive 05/26/20 18:55: Arterial Blood pH 7.311L, Arterial Blood Partial Pressure CO2 78.0*H, Arterial Blood Partial Pressure O2 74.9L, Arterial Blood HCO3 38.5H, Arterial Blood Oxygen Saturation 95.6, Arterial Blood Base Excess 9.5*H, Apollo Test Positive 05/27/20 03:35: White Blood Count 11.3H, Red Blood Count 3.52L, Hemoglobin 11.4L, Hematocrit 37.7L, Mean Corpuscular Volume 107H, Mean Corpuscular Hemoglobin 32.3H, Mean Corpuscular Hemoglobin Concent 30.2L, Red Cell Distribution Width 13.7, Platelet Count 135L, Mean Platelet Volume 11.6H, Neutrophils (%) (Auto) 71.6, Lymphocytes (%) (Auto) 17.7L, Monocytes (%) (Auto) 10.2H, Eosinophils (%) (Auto) 0.2, Basop hils (%) (Auto) 0.4, Sodium Level 138, Potassium Level 3.7, Chloride Level 101, Carbon Dioxide Level 38H, Anion Gap -1L, Blood Urea Nitrogen 30H, Creatinine 0.6, Estimat Glomerular Filtration Rate > 60, Glucose Level 153H, Calcium Level 7.9L, Total Bilirubin 0.6, Aspartate Amino Transf (AST/SGOT) 17, Alanine Aminotransferase (ALT/SGPT) 63, Alkaline Phosphatase 68, Total Protein 5.9L, Albumin 2.4L, Globulin 3.5, Albumin/Globulin Ratio 0.7L 05/27/20 05:22: Stool Occult Blood [Pending] Height (Feet): 5 Height (Inches): 6.00 Weight (Pounds): 137 Objective General Appearance: WD/WN, alert, confused EENT: normal ENT inspection Neck: normal alignment Cardiovascular: normal rate Respiratory/Chest: chest wall non-tender, lungs clear, normal breath sounds Abdomen: normal bowel sounds, non tender, soft, no organomegaly Edema: no edema noted Arm (L), no edema noted Arm (R) Neurologic: alert, disoriented Assessment/Plan Problem List: (1) Seizure ICD Codes: R56.9 - Unspecified convulsions SNOMED: 75850688 (2) Dysphagia ICD Codes: R13.10 - Dysphagia, unspecified SNOMED: 76542225, 421734345 (3) UTI (urinary tract infection) ICD Codes: N39.0 - Urinary tract infection, site not specified SNOMED: 68397911 (4) Elevated troponin I level ICD Codes: R77.8 - Other specified abnormalities of plasma proteins SNOMED: 976404226 (5) AMS (altered mental status) ICD Codes: R41.82 - Altered mental status, unspecified SNOMED: 700875673 (6) NSTEMI (non-ST elevated myocardial infarction) ICD Codes: I21.4 - Non-ST elevation (NSTEMI) myocardial infarction SNOMED: 69010959 Status: stable Assessment/Plan: bipap qhs nd prn wean o2 during the day monitor abg tube feeds monitor residuals monitor for vomiting sz rx cxr reviewed- stable monitor labs anxiolytics as needed o2 resp rx dvt/stress ulcer prophylaxis. ivf as needed snf able to accept pt on noctural bipap but not continuous Jorge Kee MD May 27, 2020 09:36
[2020-05-27] MEDS: levETIRAcetam 500mg/5ml Liquid GT SCH (09:46)
[2020-05-27] MEDS: Ascorbic Acid 500mg tab GT SCH (09:47)
[2020-05-27] MEDS: Docusate 100mg/10ml Liq GT SCH ×4 (09:47→18:24)
[2020-05-27 11:44] VITALS: BP 107/57
--- NOTE | 2020-05-27 11:45 | Infectious Diseases Prog Note ---
Assessment/Plan Assessment/Plan antibiotics : none A 1. Urinary tract infection with E. coli s/p rx 2. MRSA nasal colonization. 3. CHF. 4. COPD. 5. Seizures. 6. Dementia. 7. He is negative for COVID-19. P 1. continue off antibiotics Subjective ROS Limited/Unobtainable: Yes Allergies: Coded Allergies: PENICILLINS (Unverified Allergy, Unknown, 08/11/19) Objective Last 24 Hour Vital Signs Date Time Temp Pulse Resp B/P (MAP) Pulse Ox O2 Delivery O2 Flow Rate FiO2 05/27/20 10:27 59 27 100 30 05/27/20 09:48 61 99/51 05/27/20 09:00 61 99/51 05/27/20 08:00 30 05/27/20 08:00 98.1 61 16 99/51 (67) 99 05/27/20 08:00 60 05/27/20 08:00 Bi-pap 05/27/20 07:15 57 18 100 30 05/27/20 07:15 98 Bi-Pap 30 05/27/20 05:30 59 29 99 30 05/27/20 05:12 102/60 05/27/20 04:00 Bi-pap 05/27/20 04:00 97.7 64 20 105/57 (73) 99 05/27/20 04:00 30 05/27/20 04:00 57 05/27/20 03:22 63 26 99 30 05/27/20 01:27 74 26 99 30 05/27/20 00:00 60 05/27/20 00:00 Bi-pap 05/27/20 00:00 97.7 67 19 101/54 (70) 98 05/27/20 00:00 30 05/26/20 23:06 62 28 97 30 05/26/20 21:08 64 29 98 30 05/26/20 20:27 65 119/62 05/26/20 20:00 30 05/26/20 20:00 98.2 64 20 119/62 (81) 97 05/26/20 20:00 68 05/26/20 20:00 Bi-pap 05/26/20 19:10 98 Bi-Pap 30 05/26/20 19:10 69 28 98 30 05/26/20 17:46 117/56 05/26/20 16:00 61 05/26/20 16:00 30 05/26/20 16:00 98.1 62 17 117/56 (76) 99 05/26/20 16:00 Bi-pap 30.0 05/26/20 15:20 60 24 100 30 05/26/20 12:25 116/62 05/26/20 12:00 3.0 05/26/20 12:00 98.7 59 16 116/62 (80) 100 05/26/20 12:00 Nasal Cannula 3.0 05/26/20 12:00 59 Height (Feet): 5 Height (Inches): 6.00 Weight (Pounds): 137 HEENT: other - on bipap Respiratory/Chest: lungs clear Cardiovascular: normal rate, regular rhythm, no gallop/murmur Abdomen: soft, non tender, other - GT Extremities: no edema Laboratory Tests Test 05/26/20 14:31 05/26/20 18:55 05/27/20 02:30 05/27/20 03:35 Arterial Blood pH 7.210 (7.350-7.450) 7.311 (7.350-7.450) Arterial Blood Partial Pressure CO2 105.8 mmHg (35.0-45.0) *H 78.0 mmHg (35.0-45.0) *H Arterial Blood Partial Pressure O2 103.6 mmHg (75.0-100.0) H 74.9 mmHg (75.0-100.0) L Arterial Blood HCO3 41.4 mmol/L (22.0-26.0) *H 38.5 mmol/L (22.0-26.0) H Arterial Blood Oxygen Saturation 97.5 % (95-100) 95.6 % (95-100) Arterial Blood Base Excess 9.6 (-2-2) *H 9.5 (-2-2) *H Apollo Test Positive Positive Stool Occult Blood Positive (NEGATIVE) White Blood Count 11.3 K/UL (4.8-10.8) H Red Blood Count 3.52 M/UL (4.70-6.10) L Hemoglobin 11.4 G/DL (14.2-18.0) L Hematocrit 37.7 % (42.0-52.0) L Mean Corpuscular Volume 107 FL (80-99) H Mean Corpuscular Hemoglobin 32.3 PG (27.0-31.0) H Mean Corpuscular Hemoglobin Concent 30.2 G/DL (32.0-36.0) L Red Cell Distribution Width 13.7 % (11.6-14.8) Platelet Count 135 K/UL (150-450) L Mean Platelet Volume 11.6 FL (6.5-10.1) H Neutrophils (%) (Auto) 71.6 % (45.0-75.0) Lymphocytes (%) (Auto) 17.7 % (20.0-45.0) L Monocytes (%) (Auto) 10.2 % (1.0-10.0) H Eosinophils (%) (Auto) 0.2 % (0.0-3.0) Basophils (%) (Auto) 0.4 % (0.0-2.0) Sodium Level 138 MMOL/L (136-145) Potassium Level 3.7 MMOL/L (3.5-5.1) Chloride Level 101 MMOL/L (98-107) Carbon Dioxide Level 38 MMOL/L (21-32) H Anion Gap -1 mmol/L (5-15) L Blood Urea Nitrogen 30 mg/dL (7-18) H Creatinine 0.6 MG/DL (0.55-1.30) Estimat Glomerular Filtration Rate > 60 mL/min (>60) Glucose Level 153 MG/DL (74-106) H Calcium Level 7.9 MG/DL (8.5-10.1) L Total Bilirubin 0.6 MG/DL (0.2-1.0) Aspartate Amino Transf (AST/SGOT) 17 U/L (15-37) Alanine Aminotransferase (ALT/SGPT) 63 U/L (12-78) Alkaline Phosphatase 68 U/L (46-116) Total Protein 5.9 G/DL (6.4-8.2) L Albumin 2.4 G/DL (3.4-5.0) L Globulin 3.5 g/dL Albumin/Globulin Ratio 0.7 (1.0-2.7) L Current Medications Medications (Trade) Dose Ordered Sig/Mayela Route PRN Reason Start Time Stop Time Status Last Admin Dose Admin Acetaminophen (Tylenol) 650 mg Q4H PRN GT back pain 05/06/20 15:15 06/05/20 15:14 05/16/20 07:27 Acetazolamide (Diamox) 250 mg TWICE A DAY GT 05/13/20 09:00 06/12/20 08:59 05/27/20 09:47 Amlodipine Besylate (Norvasc) 5 mg DAILY GT 05/07/20 09:00 06/06/20 08:59 05/26/20 08:55 Ascorbic Acid (Vitamin C) 500 mg DAILY GT 05/07/20 09:00 06/06/20 08:59 05/27/20 09:47 Carvedilol (Coreg) 3.125 mg EVERY 12 HOURS GT 05/07/20 09:00 06/06/20 08:59 05/27/20 09:48 Clonidine HCl (Catapres Tab) 0.1 mg Q4H PRN ORAL SBP >160 05/08/20 22:15 08/06/20 22:14 Docusate Sodium (Colace) 200 mg BID GT 05/06/20 18:00 06/05/20 17:59 05/27/20 09:47 Heparin Sodium (Porcine) (Heparin 5000 units/ml) 5,000 units EVERY 12 HOURS SUBQ 05/08/20 09:00 06/22/20 08:59 05/26/20 20:28 Levetiracetam (Keppra) 250 mg DAILY GT 05/19/20 15:11 06/18/20 15:10 05/27/20 09:46 Multivitamins (Multivitamins W/ Minerals 15ml Liquid) 5 ml DAILY GT 05/07/20 09:00 06/06/20 08:59 05/27/20 09:00 Nitroglycerin (Nitro-Bid) 1 inch TID@0600,1200,1800 TOPIC 05/16/20 18:00 06/15/20 17:59 05/27/20 05:12 Potassium Chloride (K-Dur) 20 meq DAILY GT 05/13/20 09:00 08/11/20 08:59 05/27/20 09:48 Tamsulosin HCl (Flomax) 0.4 mg BEDTIME ORAL 05/06/20 21:00 06/05/20 20:59 05/26/20 20:26 Josué Light MD May 27, 2020 11:45
[2020-05-27] MEDS ORDERED: NS 275ml ONE (14:27)
--- NOTE | 2020-05-27 15:13 | Surgery Progress Note ---
Surgery Progress Note Subjective Symptoms: improved, tolerating diet, passing flatus, BM, other Objective Last 24 Hour Vital Signs Date Time Temp Pulse Resp B/P (MAP) Pulse Ox O2 Delivery O2 Flow Rate FiO2 05/27/20 12:30 63 27 98 30 05/27/20 12:16 107/57 05/27/20 12:00 62 05/27/20 11:47 30 05/27/20 11:45 Bi-pap 05/27/20 11:44 99.1 62 20 107/57 (74) 99 05/27/20 11:40 61 27 98 30 05/27/20 10:27 59 27 100 30 05/27/20 09:48 61 99/51 05/27/20 09:00 61 99/51 05/27/20 08:00 30 05/27/20 08:00 98.1 61 16 99/51 (67) 99 05/27/20 08:00 60 05/27/20 08:00 Bi-pap 05/27/20 07:15 57 18 100 30 05/27/20 07:15 98 Bi-Pap 30 05/27/20 05:30 59 29 99 30 05/27/20 05:12 102/60 05/27/20 04:00 Bi-pap 05/27/20 04:00 97.7 64 20 105/57 (73) 99 05/27/20 04:00 30 05/27/20 04:00 57 05/27/20 03:22 63 26 99 30 05/27/20 01:27 74 26 99 30 05/27/20 00:00 60 05/27/20 00:00 Bi-pap 05/27/20 00:00 97.7 67 19 101/54 (70) 98 05/27/20 00:00 30 05/26/20 23:06 62 28 97 30 05/26/20 21:08 64 29 98 30 05/26/20 20:27 65 119/62 05/26/20 20:00 30 05/26/20 20:00 98.2 64 20 119/62 (81) 97 05/26/20 20:00 68 05/26/20 20:00 Bi-pap 05/26/20 19:10 98 Bi-Pap 30 05/26/20 19:10 69 28 98 30 05/26/20 17:46 117/56 05/26/20 16:00 61 05/26/20 16:00 30 05/26/20 16:00 98.1 62 17 117/56 (76) 99 05/26/20 16:00 Bi-pap 30.0 05/26/20 15:20 60 24 100 30 I&O Intake and Output 05/26/20 05/27/20 19:00 07:00 Intake Total 1715 ml 1765 ml Output Total 800 ml 600 ml Balance 915 ml 1165 ml Intake Free Water 75 ml 225 ml IV Total 1200 ml 1000 ml Tube Feeding 440 ml 540 ml Output Urine Total 800 ml 600 ml # Bowel Movements 4 1 Dressing: saturated Cardiovascular: RSR Respiratory: decreased breath sounds Abdomen: soft, non-tender, present bowel sounds, other, non-distended Extremities: no tenderness, no cyanosis Laboratory Tests Test 05/26/20 18:55 05/27/20 02:30 05/27/20 03:35 Arterial Blood pH 7.311 (7.350-7.450) Arterial Blood Partial Pressure CO2 78.0 mmHg (35.0-45.0) *H Arterial Blood Partial Pressure O2 74.9 mmHg (75.0-100.0) L Arterial Blood HCO3 38.5 mmol/L (22.0-26.0) H Arterial Blood Oxygen Saturation 95.6 % (95-100) Arterial Blood Base Excess 9.5 (-2-2) *H Apollo Test Positive Stool Occult Blood Positive (NEGATIVE) White Blood Count 11.3 K/UL (4.8-10.8) H Red Blood Count 3.52 M/UL (4.70-6.10) L Hemoglobin 11.4 G/DL (14.2-18.0) L Hematocrit 37.7 % (42.0-52.0) L Mean Corpuscular Volume 107 FL (80-99) H Mean Corpuscular Hemoglobin 32.3 PG (27.0-31.0) H Mean Corpuscular Hemoglobin Concent 30.2 G/DL (32.0-36.0) L Red Cell Distribution Width 13.7 % (11.6-14.8) Platelet Count 135 K/UL (150-450) L Mean Platelet Volume 11.6 FL (6.5-10.1) H Neutrophils (%) (Auto) 71.6 % (45.0-75.0) Lymphocytes (%) (Auto) 17.7 % (20.0-45.0) L Monocytes (%) (Auto) 10.2 % (1.0-10.0) H Eosinophils (%) (Auto) 0.2 % (0.0-3.0) Basophils (%) (Auto) 0.4 % (0.0-2.0) Sodium Level 138 MMOL/L (136-145) Potassium Level 3.7 MMOL/L (3.5-5.1) Chloride Level 101 MMOL/L (98-107) Carbon Dioxide Level 38 MMOL/L (21-32) H Anion Gap -1 mmol/L (5-15) L Blood Urea Nitrogen 30 mg/dL (7-18) H Creatinine 0.6 MG/DL (0.55-1.30) Estimat Glomerular Filtration Rate > 60 mL/min (>60) Glucose Level 153 MG/DL (74-106) H Calcium Level 7.9 MG/DL (8.5-10.1) L Total Bilirubin 0.6 MG/DL (0.2-1.0) Aspartate Amino Transf (AST/SGOT) 17 U/L (15-37) Alanine Aminotransferase (ALT/SGPT) 63 U/L (12-78) Alkaline Phosphatase 68 U/L (46-116) Total Protein 5.9 G/DL (6.4-8.2) L Albumin 2.4 G/DL (3.4-5.0) L Globulin 3.5 g/dL Albumin/Globulin Ratio 0.7 (1.0-2.7) L Plan Problems: (1) Deep tissue injury Assessment & Plan: Patient identified to have bilateral heel concerns for potential developing DTI. Soft boggy no fluid collection no acute injury at this time. Patient identified to have sacral erythema and skin changes with concerns for developing deep tissue injury as well. No open areas. No fluid collections no fluctuance no drainage. On the scrotum patient is identified to have edema erythema and some abrasion along with incontinence associated dermatitis in the area. Patient identified to have abrasion to the nasal brim secondary to a facemask placement. Patient is chronically ill elderly and malnourished. Wound evaluated and care plan initiated. Treatment plan Apply skin protectant to the nasal bridge followed by foam dressing prior to facemask placement. Patient currently requires oxygen supplementation and therefore important to ensure receiving such along with protection of underlying epidermis. Apply OPTi foam to heels change every 3 days offload pressure with pillows Apply OPTi foam to sacral area monitor for incontinence change accordingly every 3 days and as needed saturation. Soft towel under scrotum. Continue with respiratory supportive care Turn every 2 hours Offload pressure with pillows Continue tube feeds nutritional optimization we will follow with recommendations thank you for let me participate patient's care (2) Dementia with behavioral problem (3) UTI (urinary tract infection) (4) Elevated troponin I level (5) AMS (altered mental status) (6) Dysphagia Assessment & Plan: DAILY ESTIMATED NEEDS: Needs based on Pulmonary, cardiac, 62kg 25-30 kcals/kg 3431-1219 total kcals 1-1.5 g protein/kg 62-93 g total protein 25-30 mL/kg 8069-1260 total fluid mLs NUTRITION DIAGNOSIS: Swallowing difficulty r/t dysphagia as evidenced by pt is PEG dep, currently on continuous BIPAP. CURRENT TF: Glucerna 1.5 @ 40ml/hr ENTERAL NUTRITION RECOMMENDATIONS: Glucerna 1.5 goal of 45ml/hr x 24 hrs to provide 1080ml, 1620 kcal, 89g pro, 820ml free water * Maintain carb controlled TF of Glucerna 1.5 while CO2 critically elevated * As medically appropriate, increase goal rate to 45ml/hr x 24 hrs to better meet nutritional needs. * HOB over 30 degrees/ water flush per MD ADDITIONAL RECOMMENDATIONS: 1) Monitor BIPAP usage, safety of GT feeds -> continuous BIPAP at this time 2) Lytes daily, replete as needed Current TF Glucerna 1.5 @goal of 40ml/hr provides 2419mg K/day 3) Calibrated bed scale wts (Bed scale shows uptrend: 65kg-> 71kg) 4) Rec HgA1C for eval of BG control 5) F/up w/ WC eval: Continue MVI and Vit C (7) Seizure (8) NSTEMI (non-ST elevated myocardial infarction) (9) Respiratory insufficiency Assessment & Plan: constant required bipap ? trach dnr/dni discussed with pcp and pulm Duplex Doppler interrogation of the veins in both upper extremity is performed from the internal jugular veins to the radial and ulnar veins. No thrombus is identified. Basilic and cephalic veins are also patent bilaterally. There is mild subcutaneous edema of the right upper extremity. IMPRESSION: No evidence of deep venous thrombosis involving the upper extremities. Benitez Mayorga May 27, 2020 15:13
[2020-05-27 16:00] VITALS: BP 106/53
[2020-05-27 20:00] VITALS: BP 110/61
[2020-05-27] MEDS: Tamsulosin 0.4mg cap ORAL SCH (20:04)
--- NOTE | 2020-05-27 23:05 | Cardiology Progress Note ---
Subjective DATE OF SERVICE: May 27, 2020 Back on bipap due to CO2 retention (05/26/20) 7.31/78/75 CXR (05/26) no change in bilateral airspace disease. Mild CHF BP remains well controlled. Monitor: sinus with rare atrial ectopy. Objective Last 24 Hour Vital Signs Date Time Temp Pulse Resp B/P (MAP) Pulse Ox O2 Delivery O2 Flow Rate FiO2 05/27/20 20:37 70 28 100 30 05/27/20 20:05 71 129/60 05/27/20 20:00 98.1 64 19 110/61 (77) 99 05/27/20 20:00 Bi-pap 05/27/20 20:00 Bi-pap 05/27/20 20:00 30 05/27/20 19:02 69 30 100 30 05/27/20 19:01 100 Bi-Pap 30 05/27/20 18:23 106/53 05/27/20 17:13 69 14 98 30 05/27/20 16:00 68 05/27/20 16:00 97.7 63 21 106/53 (70) 99 05/27/20 16:00 Bi-pap 05/27/20 15:23 30 05/27/20 15:02 68 18 99 30 05/27/20 12:30 63 27 98 30 05/27/20 12:16 107/57 05/27/20 12:00 62 05/27/20 11:47 30 05/27/20 11:45 Bi-pap 05/27/20 11:44 99.1 62 20 107/57 (74) 99 05/27/20 11:40 61 27 98 30 05/27/20 10:27 59 27 100 30 05/27/20 09:48 61 99/51 05/27/20 09:00 61 99/51 05/27/20 08:00 30 05/27/20 08:00 98.1 61 16 99/51 (67) 99 05/27/20 08:00 60 05/27/20 08:00 Bi-pap 05/27/20 07:15 57 18 100 30 05/27/20 07:15 98 Bi-Pap 30 05/27/20 05:30 59 29 99 30 05/27/20 05:12 102/60 05/27/20 04:00 Bi-pap 05/27/20 04:00 97.7 64 20 105/57 (73) 99 05/27/20 04:00 30 05/27/20 04:00 57 05/27/20 03:22 63 26 99 30 05/27/20 01:27 74 26 99 30 05/27/20 00:00 60 05/27/20 00:00 Bi-pap 05/27/20 00:00 97.7 67 19 101/54 (70) 98 05/27/20 00:00 30 05/26/20 23:06 62 28 97 30 ROS: unchanged from my evaluation of 05/06/20 HEENT: normal ENT inspection, other - bipap mask RHYTHM: NSR LUNGS: diminished breath sounds CARDIAC: normal rate, regular rhythm, normal S1 and S2 ABDOMEN: non tender, soft, G-Tube intact EXTREMITIES: non-pitting, No edema Laboratory Tests Test 05/27/20 02:30 05/27/20 03:35 Stool Occult Blood Positive (NEGATIVE) White Blood Count 11.3 K/UL (4.8-10.8) H Red Blood Count 3.52 M/UL (4.70-6.10) L Hemoglobin 11.4 G/DL (14.2-18.0) L Hematocrit 37.7 % (42.0-52.0) L Mean Corpuscular Volume 107 FL (80-99) H Mean Corpuscular Hemoglobin 32.3 PG (27.0-31.0) H Mean Corpuscular Hemoglobin Concent 30.2 G/DL (32.0-36.0) L Red Cell Distribution Width 13.7 % (11.6-14.8) Platelet Count 135 K/UL (150-450) L Mean Platelet Volume 11.6 FL (6.5-10.1) H Neutrophils (%) (Auto) 71.6 % (45.0-75.0) Lymphocytes (%) (Auto) 17.7 % (20.0-45.0) L Monocytes (%) (Auto) 10.2 % (1.0-10.0) H Eosinophils (%) (Auto) 0.2 % (0.0-3.0) Basophils (%) (Auto) 0.4 % (0.0-2.0) Sodium Level 138 MMOL/L (136-145) Potassium Level 3.7 MMOL/L (3.5-5.1) Chloride Level 101 MMOL/L (98-107) Carbon Dioxide Level 38 MMOL/L (21-32) H Anion Gap -1 mmol/L (5-15) L Blood Urea Nitrogen 30 mg/dL (7-18) H Creatinine 0.6 MG/DL (0.55-1.30) Estimat Glomerular Filtration Rate > 60 mL/min (>60) Glucose Level 153 MG/DL (74-106) H Calcium Level 7.9 MG/DL (8.5-10.1) L Total Bilirubin 0.6 MG/DL (0.2-1.0) Aspartate Amino Transf (AST/SGOT) 17 U/L (15-37) Alanine Aminotransferase (ALT/SGPT) 63 U/L (12-78) Alkaline Phosphatase 68 U/L (46-116) Total Protein 5.9 G/DL (6.4-8.2) L Albumin 2.4 G/DL (3.4-5.0) L Globulin 3.5 g/dL Albumin/Globulin Ratio 0.7 (1.0-2.7) L Assessment/Plan Assessment/Plan E.coli UTI Sepsis Metabolic and toxic encephalopathies Cerebrovascular disease with dementia Acute myocardial ischemia and possible NSTEMI Dehydration/hypernatremia resolved Hypertension/HHD Ac/chronic respiratory acidosis Respiratory failure still requiring bipap support Ac diastolic CHF; BNP continues improvement. Metabolic acidosis Pleural effusions Ac/chr renal failure with azotemia Continue anti-anginal regimen; titrate meds for BP control. Maintain nitrates. Antimicrobment. Monitor acid-base parameters.ials DC IVF; monitor volume status and trend BNP. Bipap support Real Magana MD May 27, 2020 23:05
[2020-05-28] VITALS: BP 123/67
[2020-05-28 04:00] VITALS: BP 97/70
[2020-05-28] MEDS: Nitroglycerin 2% oint pkt TOPIC SCH ×3 (05:15→17:14)
[2020-05-28 06:05] LABS: ALANINE AMINOTRANSFERASE 46 U/L (12-78); ALBUMIN 2.5 G/DL (3.4-5.0); ALBUMIN/GLOBULIN RATIO 0.8 (1.0-2.7); ALKALINE PHOSPHATASE 75 U/L (46-116); ANION GAP 1 mmol/L (5-15); ASPARTATE AMINO TRANSFERASE 16 U/L (15-37); BILIRUBIN,TOTAL 0.3 MG/DL (0.2-1.0); BLOOD UREA NITROGEN 26 mg/dL (7-18); CALCIUM 7.9 MG/DL (8.5-10.1); CARBON DIOXIDE 34 MMOL/L (21-32); CHLORIDE 99 MMOL/L (98-107); CREATININE 0.6 MG/DL (0.55-1.30); POTASSIUM 3.5 MMOL/L (3.5-5.1); SODIUM 134 MMOL/L (136-145)
--- NOTE | 2020-05-28 07:30 | General Progress Note ---
Subjective ROS Limited/Unobtainable: Yes Constitutional: Reports: malaise, weakness HEENT: Reports: no symptoms Cardiovascular: Reports: no symptoms Respiratory: Reports: cough, shortness of breath Gastrointestinal/Abdominal: Reports: difficulty swallowing Genitourinary: Reports: no symptoms Neurologic/Psychiatric: Reports: pre-existing deficit, seizure Endocrine: Reports: no symptoms Hematologic/Lymphatic: Reports: no symptoms Allergies: Coded Allergies: PENICILLINS (Unverified Allergy, Unknown, 08/11/19) All Systems: reviewed and negative except above Subjective remains on bipap. abg improving, still with high pc02. confused/lethargic. abg pending. Objective Last 24 Hour Vital Signs Date Time Temp Pulse Resp B/P (MAP) Pulse Ox O2 Delivery O2 Flow Rate FiO2 05/28/20 05:15 113/61 05/28/20 04:36 72 14 100 30 05/28/20 04:00 Bi-pap 05/28/20 04:00 30 05/28/20 04:00 98.1 70 21 97/70 (79) 100 05/28/20 04:00 71 05/28/20 02:44 71 25 99 30 05/28/20 00:45 98 31 100 30 05/28/20 00:00 98.4 85 20 123/67 (85) 99 05/28/20 00:00 69 05/28/20 00:00 Bi-pap 05/28/20 00:00 30 05/27/20 23:10 68 28 100 30 05/27/20 20:37 70 28 100 30 05/27/20 20:05 71 129/60 05/27/20 20:00 98.1 64 19 110/61 (77) 99 05/27/20 20:00 Bi-pap 05/27/20 20:00 Bi-pap 05/27/20 20:00 30 05/27/20 20:00 71 05/27/20 19:02 69 30 100 30 05/27/20 19:01 100 Bi-Pap 30 05/27/20 18:23 106/53 05/27/20 17:13 69 14 98 30 05/27/20 16:00 68 05/27/20 16:00 97.7 63 21 106/53 (70) 99 05/27/20 16:00 Bi-pap 05/27/20 15:23 30 05/27/20 15:02 68 18 99 30 05/27/20 12:30 63 27 98 30 05/27/20 12:16 107/57 05/27/20 12:00 62 05/27/20 11:47 30 05/27/20 11:45 Bi-pap 05/27/20 11:44 99.1 62 20 107/57 (74) 99 05/27/20 11:40 61 27 98 30 05/27/20 10:27 59 27 100 30 05/27/20 09:48 61 99/51 05/27/20 09:00 61 99/51 05/27/20 08:00 30 05/27/20 08:00 98.1 61 16 99/51 (67) 99 05/27/20 08:00 60 05/27/20 08:00 Bi-pap Intake and Output 05/27/20 05/28/20 19:00 07:00 Intake Total 720 ml 665 ml Output Total 1000 ml 650 ml Balance -280 ml 15 ml Intake Free Water 240 ml 225 ml Tube Feeding 480 ml 440 ml Output Urine Total 1000 ml 650 ml # Bowel Movements 3 2 Laboratory Tests 05/28/20 04:25: Sodium Level 134L, Potassium Level 3.5, Chloride Level 99, Carbon Dioxide Level 34H, Anion Gap 1L, Blood Urea Nitrogen 26H, Creatinine 0.6, Estimat Glomerular Filtration Rate > 60, Glucose Level 113H, Calcium Level 7.9L, Total Bilirubin 0.3, Aspartate Amino Transf (AST/SGOT) 16, Alanine Aminotransferase (ALT/SGPT) 46, Alkaline Phosphatase 75, Total Protein 5.8L, Albumin 2.5L, Globulin 3.3, Albumin/Globulin Ratio 0.8L Height (Feet): 5 Height (Inches): 6.00 Weight (Pounds): 137 Objective General Appearance: WD/WN, alert, confused EENT: normal ENT inspection Neck: normal alignment Cardiovascular: normal rate Respiratory/Chest: chest wall non-tender, lungs clear, normal breath sounds Abdomen: normal bowel sounds, non tender, soft, no organomegaly Edema: no edema noted Arm (L), no edema noted Arm (R) Neurologic: alert, disoriented Assessment/Plan Problem List: (1) Seizure ICD Codes: R56.9 - Unspecified convulsions SNOMED: 70070944 (2) Dysphagia ICD Codes: R13.10 - Dysphagia, unspecified SNOMED: 64480412, 890068520 (3) UTI (urinary tract infection) ICD Codes: N39.0 - Urinary tract infection, site not specified SNOMED: 73067713 (4) Elevated troponin I level ICD Codes: R77.8 - Other specified abnormalities of plasma proteins SNOMED: 261591035 (5) AMS (altered mental status) ICD Codes: R41.82 - Altered mental status, unspecified SNOMED: 835257886 (6) NSTEMI (non-ST elevated myocardial infarction) ICD Codes: I21.4 - Non-ST elevation (NSTEMI) myocardial infarction SNOMED: 27841598 Status: stable Assessment/Plan: bipap qhs nd prn wean o2 during the day monitor abg- pending for today tube feeds monitor residuals monitor for vomiting sz rx cxr reviewed- stable monitor labs anxiolytics as needed o2 resp rx dvt/stress ulcer prophylaxis. ivf as needed snf able to accept pt on noctural bipap but not continuous Jorge Kee MD May 28, 2020 07:30
[2020-05-28 08:00] VITALS: BP 128/68
[2020-05-28] MEDS: Docusate 100mg/10ml Liq GT SCH ×2 (09:00→17:14)
[2020-05-28] MEDS: Heparin 5000 units/ml inj SUBQ SCH ×2 (09:00→21:00)
[2020-05-28] MEDS: Multivitamins W/Minerals 15 ML UDC GT SCH (09:06)
[2020-05-28] MEDS: Ascorbic Acid 500mg tab GT SCH (09:06)
[2020-05-28] MEDS: levETIRAcetam 500mg/5ml Liquid GT SCH (09:07)
--- NOTE | 2020-05-28 09:33 | Pulmonology Progress Note ---
Subjective ROS Limited/Unobtainable: Yes Constitutional: Denies: fever Allergies: Coded Allergies: PENICILLINS (Unverified Allergy, Unknown, 08/11/19) All Systems: reviewed and negative except above Subjective care noted back on BIPAP worsening co2 retention imaging noted Objective Last 24 Hour Vital Signs Date Time Temp Pulse Resp B/P (MAP) Pulse Ox O2 Delivery O2 Flow Rate FiO2 05/28/20 09:07 71 128/68 05/28/20 08:00 30 05/28/20 08:00 98.2 71 21 128/68 (88) 100 05/28/20 08:00 Bi-pap 05/28/20 05:15 113/61 05/28/20 04:36 72 14 100 30 05/28/20 04:00 Bi-pap 05/28/20 04:00 30 05/28/20 04:00 98.1 70 21 97/70 (79) 100 05/28/20 04:00 71 05/28/20 02:44 71 25 99 30 05/28/20 00:45 98 31 100 30 05/28/20 00:00 98.4 85 20 123/67 (85) 99 05/28/20 00:00 69 05/28/20 00:00 Bi-pap 05/28/20 00:00 30 05/27/20 23:10 68 28 100 30 05/27/20 20:37 70 28 100 30 05/27/20 20:05 71 129/60 05/27/20 20:00 98.1 64 19 110/61 (77) 99 05/27/20 20:00 Bi-pap 05/27/20 20:00 Bi-pap 05/27/20 20:00 30 05/27/20 20:00 71 05/27/20 19:02 69 30 100 30 05/27/20 19:01 100 Bi-Pap 30 05/27/20 18:23 106/53 05/27/20 17:13 69 14 98 30 05/27/20 16:00 68 05/27/20 16:00 97.7 63 21 106/53 (70) 99 05/27/20 16:00 Bi-pap 05/27/20 15:23 30 05/27/20 15:02 68 18 99 30 05/27/20 12:30 63 27 98 30 05/27/20 12:16 107/57 11/17/20 12:00 62 05/27/20 11:47 30 05/27/20 11:45 Bi-pap 05/27/20 11:44 99.1 62 20 107/57 (74) 99 05/27/20 11:40 61 27 98 30 05/27/20 10:27 59 27 100 30 05/27/20 09:48 61 99/51 Intake and Output 05/27/20 05/28/20 19:00 07:00 Intake Total 720 ml 665 ml Output Total 1000 ml 650 ml Balance -280 ml 15 ml Intake Free Water 240 ml 225 ml Tube Feeding 480 ml 440 ml Output Urine Total 1000 ml 650 ml # Bowel Movements 3 2 Objective WDWN NAD reduced breath sounds bilaterally without rhonchi [id number] without MRG NABS nontender no CC mild edema nonfocal on BIPAP reduced LOC Laboratory Tests 05/28/20 04:25: Sodium Level 134L, Potassium Level 3.5, Chloride Level 99, Carbon Dioxide Level 34H, Anion Gap 1L, Blood Urea Nitrogen 26H, Creatinine 0.6, Estimat Glomerular Filtration Rate > 60, Glucose Level 113H, Calcium Level 7.9L, Total Bilirubin 0.3, Aspartate Amino Transf (AST/SGOT) 16, Alanine Aminotransferase (ALT/SGPT) 46, Alkaline Phosphatase 75, Total Protein 5.8L, Albumin 2.5L, Globulin 3.3, Albumin/Globulin Ratio 0.8L Current Medications Medications (Trade) Dose Ordered Sig/Mayela Route PRN Reason Start Time Stop Time Status Last Admin Dose Admin Acetaminophen (Tylenol) 650 mg Q4H PRN GT back pain 05/06/20 15:15 06/05/20 15:14 05/16/20 07:27 Acetazolamide (Diamox) 250 mg TWICE A DAY GT 05/13/20 09:00 06/12/20 08:59 05/28/20 09:06 Ascorbic Acid (Vitamin C) 500 mg DAILY GT 05/07/20 09:00 06/06/20 08:59 05/28/20 09:06 Carvedilol (Coreg) 3.125 mg EVERY 12 HOURS GT 05/07/20 09:00 06/06/20 08:59 05/28/20 09:07 Clonidine HCl (Catapres Tab) 0.1 mg Q4H PRN ORAL SBP >160 05/08/20 22:15 08/06/20 22:14 Docusate Sodium (Colace) 200 mg BID GT 05/06/20 18:00 06/05/20 17:59 05/27/20 09:47 Heparin Sodium (Porcine) (Heparin 5000 units/ml) 5,000 units EVERY 12 HOURS SUBQ 05/08/20 09:00 06/22/20 08:59 05/26/20 20:28 Levetiracetam (Keppra) 250 mg DAILY GT 05/19/20 15:11 06/18/20 15:10 05/28/20 09:07 Multivitamins (Multivitamins W/ Minerals 15ml Liquid) 5 ml DAILY GT 05/07/20 09:00 06/06/20 08:59 05/28/20 09:06 Nitroglycerin (Nitro-Bid) 1 inch TID@0600,1200,1800 TOPIC 05/16/20 18:00 06/15/20 17:59 05/28/20 05:15 Potassium Chloride (K-Dur) 20 meq DAILY GT 05/13/20 09:00 08/11/20 08:59 05/28/20 09:06 Tamsulosin HCl (Flomax) 0.4 mg BEDTIME ORAL 05/06/20 21:00 06/05/20 20:59 05/27/20 20:04 Assessment/Plan Assessment/Plan ASSESSMENT: Pulmonary congestion, respiratory failure, hypoxemia dementia, G-tube, seizure disorder, congestive heart failure, COPD sepsis, and acute [place]. acute on chronic CO2 retention PLAN: oxygen and need for BIPAP; repeat ABG noted. Breathing treatments and aspiration precautions. Monitor blood gases for change.keep negative. seizure medications. feeds and monitor residuals; DNR noted DVT prophylaxis significant CO2 retention without BIPAP needs chronic therapy remains guarded d/w primary impression, plan, and exam edited and reviewed in detail care discussed with Attila Yuan MD May 28, 2020 09:33
--- NOTE | 2020-05-28 11:22 | Infectious Diseases Prog Note ---
Assessment/Plan Assessment/Plan antibiotics : none A 1. Urinary tract infection with E. coli s/p rx 2. MRSA nasal colonization. 3. CHF. 4. COPD. 5. Seizures. 6. Dementia. 7. He is negative for COVID-19. P 1. continue off antibiotics Subjective ROS Limited/Unobtainable: Yes Allergies: Coded Allergies: PENICILLINS (Unverified Allergy, Unknown, 08/11/19) Objective Last 24 Hour Vital Signs Date Time Temp Pulse Resp B/P (MAP) Pulse Ox O2 Delivery O2 Flow Rate FiO2 05/28/20 09:15 70 14 99 30 05/28/20 09:07 71 128/68 05/28/20 08:00 30 05/28/20 08:00 68 05/28/20 08:00 98.2 71 21 128/68 (88) 100 05/28/20 08:00 Bi-pap 05/28/20 07:00 100 Bi-Pap 30 05/28/20 07:00 68 15 100 30 05/28/20 05:15 113/61 05/28/20 04:36 72 14 100 30 05/28/20 04:00 Bi-pap 05/28/20 04:00 30 05/28/20 04:00 98.1 70 21 97/70 (79) 100 05/28/20 04:00 71 05/28/20 02:44 71 25 99 30 05/28/20 00:45 98 31 100 30 05/28/20 00:00 98.4 85 20 123/67 (85) 99 05/28/20 00:00 69 05/28/20 00:00 Bi-pap 05/28/20 00:00 30 05/27/20 23:10 68 28 100 30 05/27/20 20:37 70 28 100 30 05/27/20 20:05 71 129/60 05/27/20 20:00 98.1 64 19 110/61 (77) 99 05/27/20 20:00 Bi-pap 05/27/20 20:00 Bi-pap 05/27/20 20:00 30 05/27/20 20:00 71 05/27/20 19:02 69 30 100 30 05/27/20 19:01 100 Bi-Pap 30 05/27/20 18:23 106/53 05/27/20 17:13 69 14 98 30 05/27/20 16:00 68 05/27/20 16:00 97.7 63 21 106/53 (70) 99 05/27/20 16:00 Bi-pap 05/27/20 15:23 30 05/27/20 15:02 68 18 99 30 05/27/20 12:30 63 27 98 30 05/27/20 12:16 107/57 05/27/20 12:00 62 05/27/20 11:47 30 05/27/20 11:45 Bi-pap 05/27/20 11:44 99.1 62 20 107/57 (74) 99 05/27/20 11:40 61 27 98 30 Height (Feet): 5 Height (Inches): 6.00 Weight (Pounds): 137 HEENT: other - on bipap Respiratory/Chest: lungs clear Cardiovascular: normal rate, regular rhythm, no gallop/murmur Abdomen: soft, non tender, other - GT Extremities: no edema Laboratory Tests Test 05/28/20 04:25 Sodium Level 134 MMOL/L (136-145) L Potassium Level 3.5 MMOL/L (3.5-5.1) Chloride Level 99 MMOL/L (98-107) Carbon Dioxide Level 34 MMOL/L (21-32) H Anion Gap 1 mmol/L (5-15) L Blood Urea Nitrogen 26 mg/dL (7-18) H Creatinine 0.6 MG/DL (0.55-1.30) Estimat Glomerular Filtration Rate > 60 mL/min (>60) Glucose Level 113 MG/DL (74-106) H Calcium Level 7.9 MG/DL (8.5-10.1) L Total Bilirubin 0.3 MG/DL (0.2-1.0) Aspartate Amino Transf (AST/SGOT) 16 U/L (15-37) Alanine Aminotransferase (ALT/SGPT) 46 U/L (12-78) Alkaline Phosphatase 75 U/L (46-116) Total Protein 5.8 G/DL (6.4-8.2) L Albumin 2.5 G/DL (3.4-5.0) L Globulin 3.3 g/dL Albumin/Globulin Ratio 0.8 (1.0-2.7) L Current Medications Medications (Trade) Dose Ordered Sig/Mayela Route PRN Reason Start Time Stop Time Status Last Admin Dose Admin Acetaminophen (Tylenol) 650 mg Q4H PRN GT back pain 05/06/20 15:15 06/05/20 15:14 05/16/20 07:27 Acetazolamide (Diamox) 250 mg TWICE A DAY GT 05/13/20 09:00 06/12/20 08:59 05/28/20 09:06 Ascorbic Acid (Vitamin C) 500 mg DAILY GT 05/07/20 09:00 06/06/20 08:59 05/28/20 09:06 Carvedilol (Coreg) 3.125 mg EVERY 12 HOURS GT 05/07/20 09:00 06/06/20 08:59 05/28/20 09:07 Clonidine HCl (Catapres Tab) 0.1 mg Q4H PRN ORAL SBP >160 05/08/20 22:15 08/06/20 22:14 Docusate Sodium (Colace) 200 mg BID GT 05/06/20 18:00 06/05/20 17:59 05/27/20 09:47 Heparin Sodium (Porcine) (Heparin 5000 units/ml) 5,000 units EVERY 12 HOURS SUBQ 05/08/20 09:00 06/22/20 08:59 05/26/20 20:28 Levetiracetam (Keppra) 250 mg DAILY GT 05/19/20 15:11 06/18/20 15:10 05/28/20 09:07 Multivitamins (Multivitamins W/ Minerals 15ml Liquid) 5 ml DAILY GT 05/07/20 09:00 06/06/20 08:59 05/28/20 09:06 Nitroglycerin (Nitro-Bid) 1 inch TID@0600,1200,1800 TOPIC 05/16/20 18:00 06/15/20 17:59 05/28/20 05:15 Potassium Chloride (K-Dur) 20 meq DAILY GT 05/13/20 09:00 08/11/20 08:59 05/28/20 09:06 Tamsulosin HCl (Flomax) 0.4 mg BEDTIME ORAL 05/06/20 21:00 06/05/20 20:59 05/27/20 20:04 Josué Light MD May 28, 2020 11:22
[2020-05-28 12:00] VITALS: BP 114/70
--- NOTE | 2020-05-28 13:28 | Surgery Progress Note ---
Surgery Progress Note Subjective Additional Comments no acute events exam stable no n/v Objective Last 24 Hour Vital Signs Date Time Temp Pulse Resp B/P (MAP) Pulse Ox O2 Delivery O2 Flow Rate FiO2 05/28/20 12:41 114/70 05/28/20 12:00 30 05/28/20 12:00 98.4 59 23 114/70 (85) 97 05/28/20 12:00 Bi-pap 05/28/20 12:00 74 05/28/20 09:15 70 14 99 30 05/28/20 09:07 71 128/68 05/28/20 08:00 30 05/28/20 08:00 68 05/28/20 08:00 98.2 71 21 128/68 (88) 100 05/28/20 08:00 Bi-pap 05/28/20 07:00 100 Bi-Pap 30 05/28/20 07:00 68 15 100 30 05/28/20 05:15 113/61 05/28/20 04:36 72 14 100 30 05/28/20 04:00 Bi-pap 05/28/20 04:00 30 05/28/20 04:00 98.1 70 21 97/70 (79) 100 05/28/20 04:00 71 05/28/20 02:44 71 25 99 30 05/28/20 00:45 98 31 100 30 05/28/20 00:00 98.4 85 20 123/67 (85) 99 05/28/20 00:00 69 05/28/20 00:00 Bi-pap 05/28/20 00:00 30 05/27/20 23:10 68 28 100 30 05/27/20 20:37 70 28 100 30 05/27/20 20:05 71 129/60 05/27/20 20:00 98.1 64 19 110/61 (77) 99 05/27/20 20:00 Bi-pap 05/27/20 20:00 Bi-pap 05/27/20 20:00 30 05/27/20 20:00 71 05/27/20 19:02 69 30 100 30 05/27/20 19:01 100 Bi-Pap 30 05/27/20 18:23 106/53 05/27/20 17:13 69 14 98 30 05/27/20 16:00 68 05/27/20 16:00 97.7 63 21 106/53 (70) 99 05/27/20 16:00 Bi-pap 05/27/20 15:23 30 05/27/20 15:02 68 18 99 30 I&O Intake and Output 05/27/20 05/28/20 19:00 07:00 Intake Total 720 ml 665 ml Output Total 1000 ml 650 ml Balance -280 ml 15 ml Intake Free Water 240 ml 225 ml Tube Feeding 480 ml 440 ml Output Urine Total 1000 ml 650 ml # Bowel Movements 3 2 Dressing: saturated Cardiovascular: RSR Respiratory: decreased breath sounds Abdomen: soft, non-tender, present bowel sounds Extremities: no tenderness, no cyanosis Laboratory Tests Test 05/28/20 04:25 Sodium Level 134 MMOL/L (136-145) L Potassium Level 3.5 MMOL/L (3.5-5.1) Chloride Level 99 MMOL/L (98-107) Carbon Dioxide Level 34 MMOL/L (21-32) H Anion Gap 1 mmol/L (5-15) L Blood Urea Nitrogen 26 mg/dL (7-18) H Creatinine 0.6 MG/DL (0.55-1.30) Estimat Glomerular Filtration Rate > 60 mL/min (>60) Glucose Level 113 MG/DL (74-106) H Calcium Level 7.9 MG/DL (8.5-10.1) L Total Bilirubin 0.3 MG/DL (0.2-1.0) Aspartate Amino Transf (AST/SGOT) 16 U/L (15-37) Alanine Aminotransferase (ALT/SGPT) 46 U/L (12-78) Alkaline Phosphatase 75 U/L (46-116) Total Protein 5.8 G/DL (6.4-8.2) L Albumin 2.5 G/DL (3.4-5.0) L Globulin 3.3 g/dL Albumin/Globulin Ratio 0.8 (1.0-2.7) L Plan Problems: (1) Deep tissue injury Assessment & Plan: Patient identified to have bilateral heel concerns for potential developing DTI. Soft boggy no fluid collection no acute injury at this time. Patient identified to have sacral erythema and skin changes with concerns for developing deep tissue injury as well. No open areas. No fluid collections no fluctuance no drainage. On the scrotum patient is identified to have edema erythema and some abrasion along with incontinence associated dermatitis in the area. Patient identified to have abrasion to the nasal brim secondary to a facemask placement. Patient is chronically ill elderly and malnourished. Wound evaluated and care plan initiated. Treatment plan Apply skin protectant to the nasal bridge followed by foam dressing prior to facemask placement. Patient currently requires oxygen supplementation and therefore important to ensure receiving such along with protection of underlying epidermis. Apply OPTi foam to heels change every 3 days offload pressure with pillows Apply OPTi foam to sacral area monitor for incontinence change accordingly every 3 days and as needed saturation. Soft towel under scrotum. Continue with respiratory supportive care Turn every 2 hours Offload pressure with pillows Continue tube feeds nutritional optimization we will follow with recommendations thank you for let me participate patient's care (2) Dementia with behavioral problem (3) UTI (urinary tract infection) (4) Elevated troponin I level (5) AMS (altered mental status) (6) Dysphagia Assessment & Plan: DAILY ESTIMATED NEEDS: Needs based on Pulmonary, cardiac, 62kg 25-30 kcals/kg 8961-7835 total kcals 1-1.5 g protein/kg 62-93 g total protein 25-30 mL/kg 4454-6992 total fluid mLs NUTRITION DIAGNOSIS: Swallowing difficulty r/t dysphagia as evidenced by pt is PEG dep, currently on continuous BIPAP. CURRENT TF: Glucerna 1.5 @ 40ml/hr ENTERAL NUTRITION RECOMMENDATIONS: Glucerna 1.5 goal of 45ml/hr x 24 hrs to provide 1080ml, 1620 kcal, 89g pro, 820ml free water * Maintain carb controlled TF of Glucerna 1.5 while CO2 critically elevated * As medically appropriate, increase goal rate to 45ml/hr x 24 hrs to better m eet nutritional needs. * HOB over 30 degrees/ water flush per MD ADDITIONAL RECOMMENDATIONS: 1) Monitor BIPAP usage, safety of GT feeds -> continuous BIPAP at this time 2) Lytes daily, replete as needed Current TF Glucerna 1.5 @goal of 40ml/hr provides 2419mg K/day 3) Calibrated bed scale wts (Bed scale shows uptrend: 65kg-> 71kg) 4) Rec HgA1C for eval of BG control 5) F/up w/ WC eval: Continue MVI and Vit C (7) Seizure (8) NSTEMI (non-ST elevated myocardial infarction) (9) Respiratory insufficiency Assessment & Plan: constant required bipap ? trach dnr/dni discussed with pcp and pulm Duplex Doppler interrogation of the veins in both upper extremity is performed from the internal jugular veins to the radial and ulnar veins. No thrombus is identified. Basilic and cephalic veins are also patent bilaterally. There is mild molina bcutaneous edema of the right upper extremity. IMPRESSION: No evidence of deep venous thrombosis involving the upper extremities. Benitez Mayorga May 28, 2020 13:28
[2020-05-28 16:00] VITALS: BP_SYST 112; BP_SYST 97; BP_DIAS 52; BP_DIAS 84
[2020-05-28 20:00] VITALS: BP 103/62
[2020-05-28] MEDS: Tamsulosin 0.4mg cap ORAL SCH (21:23)
--- NOTE | 2020-05-28 22:31 | Cardiology Progress Note ---
Subjective DATE OF SERVICE: May 28, 2020 Remains on bipap due to CO2 retention (05/26/20) 7.31/78/75 CXR (05/26) no change in bilateral airspace disease. Mild CHF BP remains well controlled. Monitor: sinus with rare atrial ectopy. Objective Last 24 Hour Vital Signs Date Time Temp Pulse Resp B/P (MAP) Pulse Ox O2 Delivery O2 Flow Rate FiO2 05/28/20 21:00 77 105/58 05/28/20 20:54 77 22 99 30 05/28/20 20:00 77 05/28/20 20:00 Bi-pap 05/28/20 20:00 Bi-pap 05/28/20 20:00 30 05/28/20 20:00 99.0 92 28 103/62 (76) 100 05/28/20 19:17 98 Bi-Pap 30 05/28/20 19:16 78 24 98 30 05/28/20 17:14 112/52 05/28/20 16:35 76 22 98 30 05/28/20 16:00 75 05/28/20 16:00 98.2 62 24 112/52 (72) 98 05/28/20 16:00 Bi-pap 05/28/20 16:00 30 05/28/20 15:25 76 24 98 30 05/28/20 12:45 72 28 98 30 05/28/20 12:41 114/70 05/28/20 12:00 30 05/28/20 12:00 98.4 59 23 114/70 (85) 97 05/28/20 12:00 Bi-pap 05/28/20 12:00 74 05/28/20 11:21 74 30 97 30 05/28/20 09:15 70 14 99 30 05/28/20 09:07 71 128/68 05/28/20 08:00 30 05/28/20 08:00 68 05/28/20 08:00 98.2 71 21 128/68 (88) 100 05/28/20 08:00 Bi-pap 05/28/20 07:00 100 Bi-Pap 30 05/28/20 07:00 68 15 100 30 05/28/20 05:15 113/61 05/28/20 04:36 72 14 100 30 05/28/20 04:00 Bi-pap 05/28/20 04:00 30 05/28/20 04:00 98.1 70 21 97/70 (79) 100 05/28/20 04:00 71 05/28/20 02:44 71 25 99 30 05/28/20 00:45 98 31 100 30 05/28/20 00:00 98.4 85 20 123/67 (85) 99 05/28/20 00:00 69 05/28/20 00:00 Bi-pap 05/28/20 00:00 30 05/27/20 23:10 68 28 100 30 ROS: unchanged from my evaluation of 05/06/20 HEENT: normal ENT inspection, other - bipap mask RHYTHM: NSR LUNGS: diminished breath sounds CARDIAC: normal rate, regular rhythm, normal S1 and S2 ABDOMEN: non tender, soft, G-Tube intact EXTREMITIES: non-pitting, No edema Laboratory Tests Test 05/28/20 04:25 Sodium Level 134 MMOL/L (136-145) L Potassium Level 3.5 MMOL/L (3.5-5.1) Chloride Level 99 MMOL/L (98-107) Carbon Dioxide Level 34 MMOL/L (21-32) H Anion Gap 1 mmol/L (5-15) L Blood Urea Nitrogen 26 mg/dL (7-18) H Creatinine 0.6 MG/DL (0.55-1.30) Estimat Glomerular Filtration Rate > 60 mL/min (>60) Glucose Level 113 MG/DL (74-106) H Calcium Level 7.9 MG/DL (8.5-10.1) L Total Bilirubin 0.3 MG/DL (0.2-1.0) Aspartate Amino Transf (AST/SGOT) 16 U/L (15-37) Alanine Aminotransferase (ALT/SGPT) 46 U/L (12-78) Alkaline Phosphatase 75 U/L (46-116) Total Protein 5.8 G/DL (6.4-8.2) L Albumin 2.5 G/DL (3.4-5.0) L Globulin 3.3 g/dL Albumin/Globulin Ratio 0.8 (1.0-2.7) L Assessment/Plan Assessment/Plan E.coli UTI Sepsis Metabolic and toxic encephalopathies Cerebrovascular disease with dementia Acute myocardial ischemia and possible NSTEMI Dehydration/hypernatremia resolved Hypertension/HHD Ac/chronic respiratory acidosis Respiratory failure still requiring bipap support Ac diastolic CHF; BNP continues improvement. Metabolic acidosis Pleural effusions Ac/chr renal failure with azotemia Continue anti-anginal regimen; titrate meds for BP control. Maintain nitrates. Antimicrobment. Monitor acid-base parameters; reassess acetazolamide therapy based on bicarb levels. Diuresis x 1; monitor volume status and trend BNP. Bipap support Real Magana MD May 28, 2020 22:30
[2020-05-29] VITALS: BP 120/66
[2020-05-29 04:00] VITALS: BP 114/65
[2020-05-29] MEDS: Nitroglycerin 2% oint pkt TOPIC SCH ×3 (05:17→18:05)
[2020-05-29 08:00] VITALS: BP 107/59
[2020-05-29] MEDS: levETIRAcetam 500mg/5ml Liquid GT SCH (08:26)
[2020-05-29] MEDS: Ascorbic Acid 500mg tab GT SCH (08:26)
[2020-05-29] MEDS: Docusate 100mg/10ml Liq GT SCH ×2 (08:27→18:05)
[2020-05-29] MEDS: Heparin 5000 units/ml inj SUBQ SCH ×2 (08:29→20:35)
[2020-05-29] MEDS: Multivitamins W/Minerals 15 ML UDC GT SCH (08:30)
--- NOTE | 2020-05-29 09:46 | Infectious Diseases Prog Note ---
Assessment/Plan Assessment/Plan A: 1. Urinary tract infection treated 2. MRSA nasal colonization. 3. CHF. 4. COPD. 5. Seizures. 6. Dementia. 7. He is negative for COVID-19. 8. Hypercapnic respiratory failure 9. Pleural effusion PLAN: 1. Observe off of antibiotic Subjective ROS Limited/Unobtainable: Yes Constitutional: Denies: fever Respiratory: Reports: shortness of breath Allergies: Coded Allergies: PENICILLINS (Unverified Allergy, Unknown, 08/11/19) Objective Last 24 Hour Vital Signs Date Time Temp Pulse Resp B/P (MAP) Pulse Ox O2 Delivery O2 Flow Rate FiO2 05/29/20 08:28 90 114/65 05/29/20 07:28 99 Bi-Pap 30 05/29/20 07:24 90 26 99 30 05/29/20 05:17 114/65 05/29/20 04:59 88 26 100 30 05/29/20 04:00 98.2 87 19 114/65 (81) 100 05/29/20 04:00 Bi-pap 05/29/20 04:00 85 05/29/20 04:00 30 05/29/20 03:04 85 28 99 30 05/29/20 01:00 74 22 98 30 05/29/20 00:00 98.5 71 20 120/66 (84) 100 05/29/20 00:00 Bi-pap 05/29/20 00:00 30 05/28/20 23:31 85 05/28/20 23:10 78 24 99 30 05/28/20 21:00 77 105/58 05/28/20 20:54 77 22 99 30 05/28/20 20:00 77 05/28/20 20:00 Bi-pap 05/28/20 20:00 Bi-pap 05/28/20 20:00 30 05/28/20 20:00 99.0 92 28 103/62 (76) 100 05/28/20 19:17 98 Bi-Pap 30 05/28/20 19:16 78 24 98 30 05/28/20 17:14 112/52 05/28/20 16:35 76 22 98 30 05/28/20 16:00 75 05/28/20 16:00 98.2 62 24 112/52 (72) 98 05/28/20 16:00 Bi-pap 05/28/20 16:00 30 05/28/20 15:25 76 24 98 30 05/28/20 12:45 72 28 98 30 05/28/20 12:41 114/70 05/28/20 12:00 30 05/28/20 12:00 98.4 59 23 114/70 (85) 97 05/28/20 12:00 Bi-pap 05/28/20 12:00 74 05/28/20 11:21 74 30 97 30 Height (Feet): 5 Height (Inches): 6.00 Weight (Pounds): 137 HEENT: mucous membranes moist Respiratory/Chest: decreased breath sounds, other - on BIPAP Cardiovascular: normal rate Abdomen: soft, non tender Extremities: no edema Neurologic/Psychiatric: alert, responsive Current Medications Medications (Trade) Dose Ordered Sig/Mayela Route PRN Reason Start Time Stop Time Status Last Admin Dose Admin Acetaminophen (Tylenol) 650 mg Q4H PRN GT back pain 05/06/20 15:15 06/05/20 15:14 05/16/20 07:27 Acetazolamide (Diamox) 250 mg TWICE A DAY GT 05/13/20 09:00 06/12/20 08:59 05/29/20 08:26 Ascorbic Acid (Vitamin C) 500 mg DAILY GT 05/07/20 09:00 06/06/20 08:59 05/29/20 08:26 Carvedilol (Coreg) 3.125 mg EVERY 12 HOURS GT 05/07/20 09:00 06/06/20 08:59 05/29/20 08:28 Clonidine HCl (Catapres Tab) 0.1 mg Q4H PRN ORAL SBP >160 05/08/20 22:15 08/06/20 22:14 Docusate Sodium (Colace) 200 mg BID GT 05/06/20 18:00 06/05/20 17:59 05/29/20 08:27 Heparin Sodium (Porcine) (Heparin 5000 units/ml) 5,000 units EVERY 12 HOURS SUBQ 05/08/20 09:00 06/22/20 08:59 05/26/20 20:28 Levetiracetam (Keppra) 250 mg DAILY GT 05/19/20 15:11 06/18/20 15:10 05/29/20 08:26 Multivitamins (Multivitamins W/ Minerals 15ml Liquid) 5 ml DAILY GT 05/07/20 09:00 06/06/20 08:59 05/29/20 08:30 Nitroglycerin (Nitro-Bid) 1 inch TID@0600,1200,1800 TOPIC 05/16/20 18:00 06/15/20 17:59 05/29/20 05:17 Potassium Chloride (K-Dur) 20 meq DAILY GT 05/13/20 09:00 08/11/20 08:59 05/29/20 08:28 Tamsulosin HCl (Flomax) 0.4 mg BEDTIME ORAL 05/06/20 21:00 06/05/20 20:59 05/28/20 21:23 Luis Yanes MD May 29, 2020 09:46
--- NOTE | 2020-05-29 10:57 | Pulmonology Progress Note ---
Subjective ROS Limited/Unobtainable: Yes Constitutional: Denies: fever Allergies: Coded Allergies: PENICILLINS (Unverified Allergy, Unknown, 08/11/19) All Systems: reviewed and negative except above Subjective care noted remains on BIPAP worsening co2 retention noted imaging noted Objective Last 24 Hour Vital Signs Date Time Temp Pulse Resp B/P (MAP) Pulse Ox O2 Delivery O2 Flow Rate FiO2 05/29/20 08:28 90 114/65 05/29/20 07:28 99 Bi-Pap 30 05/29/20 07:24 90 26 99 30 05/29/20 05:17 114/65 05/29/20 04:59 88 26 100 30 05/29/20 04:00 98.2 87 19 114/65 (81) 100 05/29/20 04:00 Bi-pap 05/29/20 04:00 85 05/29/20 04:00 30 05/29/20 03:04 85 28 99 30 05/29/20 01:00 74 22 98 30 05/29/20 00:00 98.5 71 20 120/66 (84) 100 05/29/20 00:00 Bi-pap 05/29/20 00:00 30 05/28/20 23:31 85 05/28/20 23:10 78 24 99 30 05/28/20 21:00 77 105/58 05/28/20 20:54 77 22 99 30 05/28/20 20:00 77 05/28/20 20:00 Bi-pap 05/28/20 20:00 Bi-pap 05/28/20 20:00 30 05/28/20 20:00 99.0 92 28 103/62 (76) 100 05/28/20 19:17 98 Bi-Pap 30 05/28/20 19:16 78 24 98 30 05/28/20 17:14 112/52 05/28/20 16:35 76 22 98 30 05/28/20 16:00 75 05/28/20 16:00 98.2 62 24 112/52 (72) 98 05/28/20 16:00 Bi-pap 05/28/20 16:00 30 05/28/20 15:25 76 24 98 30 05/28/20 12:45 72 28 98 30 05/28/20 12:41 114/70 05/28/20 12:00 30 05/28/20 12:00 98.4 59 23 114/70 (85) 97 05/28/20 12:00 Bi-pap 05/28/20 12:00 74 05/28/20 11:21 74 30 97 30 Intake and Output 05/28/20 05/29/20 19:00 07:00 Intake Total 840 ml 540 ml Output Total 400 ml 600 ml Balance 440 ml -60 ml Intake Free Water 360 ml 60 ml Tube Feeding 480 ml 480 ml Output Urine Total 400 ml 600 ml # Bowel Movements 1 Objective WDWN NAD reduced breath sounds bilaterally without rhonchi [id number] without MRG NABS nontender no CC mild edema nonfocal on BIPAP reduced LOC Current Medications Medications (Trade) Dose Ordered Sig/Mayela Route PRN Reason Start Time Stop Time Status Last Admin Dose Admin Acetaminophen (Tylenol) 650 mg Q4H PRN GT back pain 05/06/20 15:15 06/05/20 15:14 05/16/20 07:27 Acetazolamide (Diamox) 250 mg TWICE A DAY GT 05/13/20 09:00 06/12/20 08:59 05/29/20 08:26 Ascorbic Acid (Vitamin C) 500 mg DAILY GT 05/07/20 09:00 06/06/20 08:59 05/29/20 08:26 Carvedilol (Coreg) 3.125 mg EVERY 12 HOURS GT 05/07/20 09:00 06/06/20 08:59 05/29/20 08:28 Clonidine HCl (Catapres Tab) 0.1 mg Q4H PRN ORAL SBP >160 05/08/20 22:15 08/06/20 22:14 Docusate Sodium (Colace) 200 mg BID GT 05/06/20 18:00 06/05/20 17:59 05/29/20 08:27 Heparin Sodium (Porcine) (Heparin 5000 units/ml) 5,000 units EVERY 12 HOURS SUBQ 05/08/20 09:00 06/22/20 08:59 05/26/20 20:28 Levetiracetam (Keppra) 250 mg DAILY GT 05/19/20 15:11 06/18/20 15:10 05/29/20 08:26 Multivitamins (Multivitamins W/ Minerals 15ml Liquid) 5 ml DAILY GT 05/07/20 09:00 06/06/20 08:59 05/29/20 08:30 Nitroglycerin (Nitro-Bid) 1 inch TID@0600,1200,1800 TOPIC 05/16/20 18:00 06/15/20 17:59 05/29/20 05:17 Potassium Chloride (K-Dur) 20 meq DAILY GT 05/13/20 09:00 08/11/20 08:59 05/29/20 08:28 Tamsulosin HCl (Flomax) 0.4 mg BEDTIME ORAL 05/06/20 21:00 06/05/20 20:59 05/28/20 21:23 Assessment/Plan Assessment/Plan ASSESSMENT: Pulmonary congestion, respiratory failure, hypoxemia dementia, G-tube, seizure disorder, congestive heart failure, COPD sepsis, and acute [place]. acute on chronic CO2 retention PLAN: oxygen and need for BIPAP; repeat ABG noted. Breathing treatments and aspiration precautions. Monitor blood gases for change.keep negative. seizure medications. feeds and monitor residuals; DNR noted DVT prophylaxis significant CO2 retention without BIPAP needs chronic therapy remains guarded d/w primary impression, plan, and exam edited and reviewed in detail care discussed with Attila Yuan MD May 29, 2020 10:57
[2020-05-29 12:00] VITALS: BP 110/59
--- NOTE | 2020-05-29 12:48 | Surgery Progress Note ---
Surgery Progress Note Subjective Symptoms: improved, tolerating diet, passing flatus, BM Objective Last 24 Hour Vital Signs Date Time Temp Pulse Resp B/P (MAP) Pulse Ox O2 Delivery O2 Flow Rate FiO2 05/29/20 12:00 Bi-pap 05/29/20 08:28 90 114/65 05/29/20 08:00 30 05/29/20 08:00 90 05/29/20 08:00 Bi-pap 05/29/20 08:00 97.3 90 20 107/59 (75) 100 05/29/20 07:28 99 Bi-Pap 30 05/29/20 07:24 90 26 99 30 05/29/20 05:17 114/65 05/29/20 04:59 88 26 100 30 05/29/20 04:00 98.2 87 19 114/65 (81) 100 05/29/20 04:00 Bi-pap 05/29/20 04:00 85 05/29/20 04:00 30 05/29/20 03:04 85 28 99 30 05/29/20 01:00 74 22 98 30 05/29/20 00:00 98.5 71 20 120/66 (84) 100 05/29/20 00:00 Bi-pap 05/29/20 00:00 30 05/28/20 23:31 85 05/28/20 23:10 78 24 99 30 05/28/20 21:00 77 105/58 05/28/20 20:54 77 22 99 30 05/28/20 20:00 77 05/28/20 20:00 Bi-pap 05/28/20 20:00 Bi-pap 05/28/20 20:00 30 05/28/20 20:00 99.0 92 28 103/62 (76) 100 05/28/20 19:17 98 Bi-Pap 30 05/28/20 19:16 78 24 98 30 05/28/20 17:14 112/52 05/28/20 16:35 76 22 98 30 05/28/20 16:00 75 05/28/20 16:00 98.2 62 24 112/52 (72) 98 05/28/20 16:00 Bi-pap 05/28/20 16:00 30 05/28/20 15:25 76 24 98 30 I&O Intake and Output 05/28/20 05/29/20 19:00 07:00 Intake Total 840 ml 540 ml Output Total 400 ml 600 ml Balance 440 ml -60 ml Intake Free Water 360 ml 60 ml Tube Feeding 480 ml 480 ml Output Urine Total 400 ml 600 ml # Bowel Movements 1 Dressing: saturated Cardiovascular: RSR Respiratory: decreased breath sounds Abdomen: soft, non-tender, present bowel sounds, non-distended Extremities: no tenderness, no cyanosis Laboratory Tests Test 05/29/20 12:32 Arterial Blood pH 7.426 (7.350-7.450) Arterial Blood Partial Pressure CO2 47.5 mmHg (35.0-45.0) H Arterial Blood Partial Pressure O2 77.9 mmHg (75.0-100.0) Arterial Blood HCO3 30.5 mmol/L (22.0-26.0) H Arterial Blood Oxygen Saturation 95.8 % (95-100) Arterial Blood Base Excess 5.3 (-2-2) H Apollo Test Positive Plan Problems: (1) Deep tissue injury Assessment & Plan: Patient identified to have bilateral heel concerns for p otential developing DTI. Soft boggy no fluid collection no acute injury at this time. Patient identified to have sacral erythema and skin changes with concerns for developing deep tissue injury as well. No open areas. No fluid collections no fluctuance no drainage. On the scrotum patient is identified to have edema erythema and some abrasion along with incontinence associated dermatitis in the area. Patient identified to have abrasion to the nasal brim secondary to a facemask placement. Patient is chronically ill elderly and malnourished. Wound evaluated and care plan initiated. Treatment plan Apply skin protectant to the nasal bridge followed by foam dressing prior to facemask placement. Patient currently requires oxygen supplementation and therefore important to ensure receiving such along with protection of underlying epidermis. Apply OPTi foam to heels change every 3 days offload pressure with pillows Apply OPTi foam to sacral area monitor for incontinence change accordingly every 3 days and as needed saturation. Soft towel under scrotum. Continue with respiratory supportive care Turn every 2 hours Offload pressure with pillows Continue tube feeds nutritional optimization we will follow with recommendations thank you for let me participate patient's care (2) Dementia with behavioral problem (3) UTI (urinary tract infection) (4) Elevated troponin I level (5) AMS (altered mental status) (6) Dysphagia Assessment & Plan: DAILY ESTIMATED NEEDS: Needs based on Pulmonary, cardiac, 62kg 25-30 kcals/kg 4901-8780 total kcals 1-1.5 g protein/kg 62-93 g total protein 25-30 mL/kg 3373-0935 total fluid mLs NUTRITION DIAGNOSIS: Swallowing difficulty r/t dysphagia as evidenced by pt is PEG dep, currently on continuous BIPAP. CURRENT TF: Glucerna 1.5 @ 40ml/hr ENTERAL NUTRITION RECOMMENDATIONS: Glucerna 1.5 goal of 45ml/hr x 24 hrs to provide 1080ml, 1620 kcal, 89g pro, 820ml free water * Maintain carb controlled TF of Glucerna 1.5 while CO2 critically elevated * As medically appropriate, increase goal rate to 45ml/hr x 24 hrs to better meet nutritional needs. * HOB over 30 degrees/ water flush per MD ADDITIONAL RECOMMENDATIONS: 1) Monitor BIPAP usage, safety of GT feeds -> continuous BIPAP at this time 2) Lytes daily, replete as needed Current TF Glucerna 1.5 @goal of 40ml/hr provides 2419mg K/day 3) Calibrated bed scale wts (Bed scale shows uptrend: 65kg-> 71kg) 4) Rec HgA1C for eval of BG control 5) F/up w/ WC eval: Continue MVI and Vit C (7) Seizure (8) NSTEMI (non-ST elevated myocardial infarction) (9) Respiratory insufficiency Assessment & Plan: constant required bipap ? trach dnr/dni discussed with pcp and pulm Duplex Doppler interrogation of the veins in both upper extremity is performed from the internal jugular veins to the radial and ulnar veins. No thrombus is identified. Basilic and cephalic veins are also patent bilaterally. There is mild subcutaneous edema of the right upper extremity. IMPRESSION: No evidence of deep venous thrombosis involving the upper extremities. Benitez Mayorga May 29, 2020 12:48
--- NOTE | 2020-05-29 15:11 | General Progress Note ---
Subjective Constitutional: Reports: malaise, weakness HEENT: Reports: no symptoms Cardiovascular: Reports: edema Respiratory: Reports: SOB with excertion, sputum Gastrointestinal/Abdominal: Reports: difficulty swallowing Genitourinary: Reports: no symptoms Neurologic/Psychiatric: Reports: pre-existing deficit Endocrine: Reports: no symptoms Hematologic/Lymphatic: Reports: no symptoms Allergies: Coded Allergies: PENICILLINS (Unverified Allergy, Unknown, 08/11/19) All Systems: reviewed and negative except above Subjective remains on bipap. abg improving, still with high pc02. confused/lethargic. abg pending- improved Objective Last 24 Hour Vital Signs Date Time Temp Pulse Resp B/P (MAP) Pulse Ox O2 Delivery O2 Flow Rate FiO2 05/29/20 13:02 110/59 05/29/20 12:00 Bi-pap 05/29/20 12:00 98.4 89 20 110/59 (76) 100 05/29/20 12:00 80 05/29/20 12:00 30 05/29/20 08:28 90 114/65 05/29/20 08:00 30 05/29/20 08:00 90 05/29/20 08:00 Bi-pap 05/29/20 08:00 97.3 90 20 107/59 (75) 100 05/29/20 07:28 99 Bi-Pap 30 05/29/20 07:24 90 26 99 30 05/29/20 05:17 114/65 05/29/20 04:59 88 26 100 30 05/29/20 04:00 98.2 87 19 114/65 (81) 100 05/29/20 04:00 Bi-pap 05/29/20 04:00 85 05/29/20 04:00 30 05/29/20 03:04 85 28 99 30 05/29/20 01:00 74 22 98 30 05/29/20 00:00 98.5 71 20 120/66 (84) 100 05/29/20 00:00 Bi-pap 05/29/20 00:00 30 05/28/20 23:31 85 05/28/20 23:10 78 24 99 30 05/28/20 21:00 77 105/58 05/28/20 20:54 77 22 99 30 05/28/20 20:00 77 05/28/20 20:00 Bi-pap 05/28/20 20:00 Bi-pap 05/28/20 20:00 30 05/28/20 20:00 99.0 92 28 103/62 (76) 100 05/28/20 19:17 98 Bi-Pap 30 05/28/20 19:16 78 24 98 30 05/28/20 17:14 112/52 05/28/20 16:35 76 22 98 30 05/28/20 16:00 75 05/28/20 16:00 98.2 62 24 112/52 (72) 98 05/28/20 16:00 Bi-pap 05/28/20 16:00 30 05/28/20 15:25 76 24 98 30 Intake and Output 05/28/20 05/29/20 19:00 07:00 Intake Total 840 ml 540 ml Output Total 400 ml 600 ml Balance 440 ml -60 ml Intake Free Water 360 ml 60 ml Tube Feeding 480 ml 480 ml Output Urine Total 400 ml 600 ml # Bowel Movements 1 Laboratory Tests 05/29/20 12:32: Arterial Blood pH 7.426, Arterial Blood Partial Pressure CO2 47.5H, Arterial Blood Partial Pressure O2 77.9, Arterial Blood HCO3 30.5H, Arterial Blood Oxygen Saturation 95.8, Arterial Blood Base Excess 5.3H, Apollo Test Positive Height (Feet): 5 Height (Inches): 6.00 Weight (Pounds): 137 Objective General Appearance: WD/WN, alert, confused EENT: normal ENT inspection Neck: normal alignment Cardiovascular: normal rate Respiratory/Chest: chest wall non-tender, lungs clear, normal breath sounds Abdomen: normal bowel sounds, non tender, soft, no organomegaly Edema: no edema noted Arm (L), no edema noted Arm (R) Neurologic: alert, disoriented Assessment/Plan Problem List: (1) Seizure ICD Codes: R56.9 - Unspecified convulsions SNOMED: 24865229 (2) Dysphagia ICD Codes: R13.10 - Dysphagia, unspecified SNOMED: 29259415, 367864704 (3) UTI (urinary tract infection) ICD Codes: N39.0 - Urinary tract infection, site not specified SNOMED: 32660491 (4) Elevated troponin I level ICD Codes: R77.8 - Other specified abnormalities of plasma proteins SNOMED: 277815316 (5) AMS (altered mental status) ICD Codes: R41.82 - Altered mental status, unspecified SNOMED: 153373596 (6) NSTEMI (non-ST elevated myocardial infarction) ICD Codes: I21.4 - Non-ST elevation (NSTEMI) myocardial infarction SNOMED: 69221428 Status: stable Assessment/Plan: bipap qhs nd prn wean o2 during the day monitor abg- pending for today tube feeds monitor residuals monitor for vomiting sz rx cxr reviewed- stable monitor labs anxiolytics as needed o2 resp rx dvt/stress ulcer prophylaxis. ivf as needed snf able to accept pt on noctural bipap but not continuous Jorge Kee MD May 29, 2020 15:11
[2020-05-29 16:00] VITALS: BP 122/62
[2020-05-29 20:00] VITALS: BP 119/70
[2020-05-29] MEDS: Tamsulosin 0.4mg cap ORAL SCH (20:34)
--- NOTE | 2020-05-29 23:35 | Cardiology Progress Note ---
Subjective DATE OF SERVICE: May 29, 2020 Remains on bipap due to CO2 retention Confused and pulling off bipap; as such, restraints placed. (05/29/20) 7.42/47/79 CXR (05/26) no change in bilateral airspace disease. Mild CHF BP remains well controlled. Monitor: sinus with rare atrial ectopy. Objective Last 24 Hour Vital Signs Date Time Temp Pulse Resp B/P (MAP) Pulse Ox O2 Delivery O2 Flow Rate FiO2 05/29/20 22:42 75 26 99 30 05/29/20 20:52 91 23 100 30 05/29/20 20:34 86 119/70 05/29/20 20:00 97.7 86 22 119/70 (86) 100 05/29/20 20:00 Bi-pap 05/29/20 20:00 30 05/29/20 20:00 89 05/29/20 19:43 100 Bi-Pap 30 05/29/20 19:41 89 25 100 30 05/29/20 18:05 122/62 05/29/20 17:30 80 24 99 30 05/29/20 16:00 Bi-pap 05/29/20 16:00 98.1 80 18 122/62 (82) 100 05/29/20 16:00 30 05/29/20 16:00 80 05/29/20 15:25 76 20 99 30 05/29/20 13:40 85 22 98 30 05/29/20 13:02 110/59 05/29/20 12:00 Bi-pap 05/29/20 12:00 98.4 89 20 110/59 (76) 100 05/29/20 12:00 80 05/29/20 12:00 30 05/29/20 11:20 87 20 99 30 05/29/20 09:30 88 24 98 30 05/29/20 09:00 82 20 99 Bi-Pap 30 05/29/20 08:28 90 114/65 05/29/20 08:00 30 05/29/20 08:00 90 05/29/20 08:00 Bi-pap 05/29/20 08:00 97.3 90 20 107/59 (75) 100 05/29/20 07:28 99 Bi-Pap 30 05/29/20 07:24 90 26 99 30 05/29/20 05:17 114/65 05/29/20 04:59 88 26 100 30 05/29/20 04:00 98.2 87 19 114/65 (81) 100 05/29/20 04:00 Bi-pap 05/29/20 04:00 85 05/29/20 04:00 30 05/29/20 03:04 85 28 99 30 05/29/20 01:00 74 22 98 30 05/29/20 00:00 98.5 71 20 120/66 (84) 100 05/29/20 00:00 Bi-pap 05/29/20 00:00 30 ROS: unchanged from my evaluation of 05/06/20 HEENT: normal ENT inspection, other - bipap mask RHYTHM: NSR LUNGS: diminished breath sounds CARDIAC: normal rate, regular rhythm, normal S1 and S2 ABDOMEN: non tender, soft, G-Tube intact EXTREMITIES: non-pitting, No edema Laboratory Tests Test 05/29/20 12:32 Arterial Blood pH 7.426 (7.350-7.450) Arterial Blood Partial Pressure CO2 47.5 mmHg (35.0-45.0) H Arterial Blood Partial Pressure O2 77.9 mmHg (75.0-100.0) Arterial Blood HCO3 30.5 mmol/L (22.0-26.0) H Arterial Blood Oxygen Saturation 95.8 % (95-100) Arterial Blood Base Excess 5.3 (-2-2) H Apollo Test Positive Assessment/Plan Assessment/Plan E.coli UTI Sepsis Metabolic and toxic encephalopathies Cerebrovascular disease with dementia Acute myocardial ischemia and possible NSTEMI Dehydration/hypernatremia resolved Hypertension/HHD Ac/chronic respiratory acidosis Respiratory failure still requiring bipap support Ac diastolic CHF; BNP continues improvement. Metabolic acidosis Pleural effusions Ac/chr renal failure with azotemia Continue anti-anginal regimen; titrate meds for BP control. Maintain nitrates. Antimicrobment. Monitor acid-base parameters; reassess acetazolamide therapy based on bicarb levels. Diuresis based on clinical parameters; monitor volume status and trend BNP. Bipap support-taper to nighttime only. Real Magana MD May 29, 2020 23:35
[2020-05-30] VITALS: BP_SYST 102; BP_SYST 104; BP_DIAS 61; BP_DIAS 75
[2020-05-30] MEDS: Acetaminophen 650mg/20.3ml GT PRN (00:39)
[2020-05-30 04:00] VITALS: BP 102/45
[2020-05-30 05:20] LABS: BASOPHILS % (AUTO) 0.5 % (0.0-2.0); EOSINOPHILS % (AUTO) 2.5 % (0.0-3.0); HEMATOCRIT 37.4 % (42.0-52.0); HEMOGLOBIN 11.8 G/DL (14.2-18.0); LYMPHOCYTES % (AUTO) 20.4 % (20.0-45.0); MEAN CORPUSCULAR VOLUME 104 FL (80-99); MONOCYTES % (AUTO) 12.8 % (1.0-10.0); NEUTROPHILS % (AUTO) 63.8 % (45.0-75.0); PLATELET COUNT 139 K/UL (150-450); RED CELL DISTRIBUTION WIDTH 14.5 % (11.6-14.8); WHITE BLOOD COUNT 12.5 K/UL (4.8-10.8)
[2020-05-30 05:21] LABS: ALANINE AMINOTRANSFERASE 50 U/L (12-78); ALBUMIN 2.6 G/DL (3.4-5.0); ALBUMIN/GLOBULIN RATIO 0.7 (1.0-2.7); ALKALINE PHOSPHATASE 82 U/L (46-116); ANION GAP 2 mmol/L (5-15); ASPARTATE AMINO TRANSFERASE 23 U/L (15-37); BILIRUBIN,TOTAL 0.3 MG/DL (0.2-1.0); BLOOD UREA NITROGEN 28 mg/dL (7-18); CALCIUM 8.4 MG/DL (8.5-10.1); CARBON DIOXIDE 32 MMOL/L (21-32); CHLORIDE 104 MMOL/L (98-107); CREATININE 0.6 MG/DL (0.55-1.30); POTASSIUM 3.8 MMOL/L (3.5-5.1); SODIUM 138 MMOL/L (136-145)
[2020-05-30] MEDS: Nitroglycerin 2% oint pkt TOPIC SCH ×3 (05:58→18:43)
[2020-05-30 08:00] VITALS: BP 121/60
--- NOTE | 2020-05-30 08:24 | Pulmonology Progress Note ---
Subjective ROS Limited/Unobtainable: Yes Constitutional: Denies: fever Allergies: Coded Allergies: PENICILLINS (Unverified Allergy, Unknown, 08/11/19) All Systems: reviewed and negative except above Subjective care noted off BIPAP improving co2 retention noted imaging noted Objective Last 24 Hour Vital Signs Date Time Temp Pulse Resp B/P (MAP) Pulse Ox O2 Delivery O2 Flow Rate FiO2 05/30/20 05:58 101/54 05/30/20 04:00 77 05/30/20 04:00 98.2 75 25 102/45 (64) 99 05/30/20 04:00 2.0 05/30/20 04:00 Nasal Cannula 2.0 05/30/20 00:10 95 Nasal Cannula 2.0 28 05/30/20 00:00 80 05/30/20 00:00 Nasal Cannula 2.0 05/30/20 00:00 98.2 72 22 102/61 (75) 100 05/29/20 22:42 75 26 99 30 05/29/20 20:52 91 23 100 30 05/29/20 20:34 86 119/70 05/29/20 20:00 97.7 86 22 119/70 (86) 100 05/29/20 20:00 Bi-pap 05/29/20 20:00 30 05/29/20 20:00 89 05/29/20 19:43 100 Bi-Pap 30 05/29/20 19:41 89 25 100 30 05/29/20 18:05 122/62 05/29/20 17:30 80 24 99 30 05/29/20 16:00 Bi-pap 05/29/20 16:00 98.1 80 18 122/62 (82) 100 05/29/20 16:00 30 05/29/20 16:00 80 05/29/20 15:25 76 20 99 30 05/29/20 13:40 85 22 98 30 05/29/20 13:02 110/59 05/29/20 12:00 Bi-pap 05/29/20 12:00 98.4 89 20 110/59 (76) 100 05/29/20 12:00 80 05/29/20 12:00 30 05/29/20 11:20 87 20 99 30 05/29/20 09:30 88 24 98 30 05/29/20 09:00 82 20 99 Bi-Pap 30 05/29/20 08:28 90 114/65 Intake and Output 05/29/20 05/30/20 19:00 07:00 Intake Total 630 ml 665 ml Output Total 750 ml 475 ml Balance -120 ml 190 ml Intake Free Water 150 ml 225 ml Tube Feeding 480 ml 440 ml Output Urine Total 750 ml 475 ml # Bowel Movements 3 Objective WDWN NAD reduced breath sounds bilaterally without rhonchi [id number] without MRG NABS nontender no CC mild edema nonfocal off BIPAP reduced LOC Laboratory Tests 05/29/20 12:32: Arterial Blood pH 7.426, Arterial Blood Partial Pressure CO2 47.5H, Arterial Blood Partial Pressure O2 77.9, Arterial Blood HCO3 30.5H, Arterial Blood Oxygen Saturation 95.8, Arterial Blood Base Excess 5.3H, Apollo Test Positive 05/30/20 03:05: White Blood Count 12.5H, Red Blood Count 3.60L, Hemoglobin 11.8L, Hematocrit 37.4L, Mean Corpuscular Volume 104H, Mean Corpuscular Hemoglobin 32.7H, Mean Corpuscular Hemoglobin Concent 31.5L, Red Cell Distribution Width 14.5, Platelet Count 139L, Mean Platelet Volume 12.7H, Neutrophils (%) (Auto) 63.8, Lymphocytes (%) (Auto) 20.4, Monocytes (%) (Auto) 12.8H, Eosinophils (%) (Auto) 2.5, Ba sophils (%) (Auto) 0.5, Sodium Level 138, Potassium Level 3.8, Chloride Level 104, Carbon Dioxide Level 32, Anion Gap 2L, Blood Urea Nitrogen 28H, Creatinine 0.6, Estimat Glomerular Filtration Rate > 60, Glucose Level 127H, Calcium Level 8.4L, Magnesium Level 2.2, Total Bilirubin 0.3, Aspartate Amino Transf (AST/SGOT) 23, Alanine Aminotransferase (ALT/SGPT) 50, Alkaline Phosphatase 82, Pro-B-Type Natriuretic Peptide 984H, Total Protein 6.2L, Albumin 2.6L, Globulin 3.6, Albumin/Globulin Ratio 0.7L 05/30/20 06:48: Arterial Blood pH 7.305L, Arterial Blood Partial Pressure CO2 56.4*H, Arterial Blood Partial Pressure O2 48.1*L, Arterial Blood HCO3 27.4H, Arterial Blood Oxygen Saturation 80.0*L, Arterial Blood Base Excess 0.4, Apollo Test Positive 05/30/20 07:33: Arterial Blood pH 7.361, Arterial Blood Partial Pressure CO2 50.1H, Arterial B lood Partial Pressure O2 111.1H, Arterial Blood HCO3 27.7H, Arterial Blood Oxygen Saturation 97.4, Arterial Blood Base Excess 1.6, Apollo Test Positive Current Medications Medications (Trade) Dose Ordered Sig/Mayela Route PRN Reason Start Time Stop Time Status Last Admin Dose Admin Acetaminophen (Tylenol) 650 mg Q4H PRN GT back pain 05/06/20 15:15 06/05/20 15:14 05/30/20 00:39 Acetazolamide (Diamox) 250 mg TWICE A DAY GT 05/13/20 09:00 06/12/20 08:59 05/29/20 18:05 Ascorbic Acid (Vitamin C) 500 mg DAILY GT 05/07/20 09:00 06/06/20 08:59 05/29/20 08:26 Carvedilol (Coreg) 3.125 mg EVERY 12 HOURS GT 05/07/20 09:00 06/06/20 08:59 05/29/20 20:34 Clonidine HCl (Catapres Tab) 0.1 mg Q4H PRN ORAL SBP >160 05/08/20 22:15 08/06/20 22:14 Docusate Sodium (Colace) 200 mg BID GT 05/06/20 18:00 06/05/20 17:59 05/29/20 18:05 Heparin Sodium (Porcine) (Heparin 5000 units/ml) 5,000 units EVERY 12 HOURS SUBQ 05/08/20 09:00 06/22/20 08:59 05/26/20 20:28 Levetiracetam (Keppra) 250 mg DAILY GT 05/19/20 15:11 06/18/20 15:10 05/29/20 08:26 Multivitamins (Multivitamins W/ Minerals 15ml Liquid) 5 ml DAILY GT 05/07/20 09:00 06/06/20 08:59 05/29/20 08:30 Nitroglycerin (Nitro-Bid) 1 inch TID@0600,1200,1800 TOPIC 05/16/20 18:00 06/15/20 17:59 05/29/20 18:05 Potassium Chloride (K-Dur) 20 meq DAILY GT 05/13/20 09:00 08/11/20 08:59 05/29/20 08:28 Tamsulosin HCl (Flomax) 0.4 mg BEDTIME ORAL 05/06/20 21:00 06/05/20 20:59 05/29/20 20:34 Assessment/Plan Assessment/Plan ASSESSMENT: Pulmonary congestion, respiratory failure, hypoxemia dementia, G-tube, seizure disorder, congestive heart failure, COPD sepsis, and acute ME. acute on chronic CO2 retention PLAN: oxygen and need for BIPAP reviewed; repeat ABG noted and improved. Breathing treatments and aspiration precautions. Monitor blood gases for change.keep negative. seizure medications. feeds and monitor residuals; DNR noted DVT prophylaxis significant CO2 retention without BIPAP- for prolonged periods needs chronic therapy remains guarded and difficult to place d/w primary impression, plan, and exam edited and reviewed in detail care discussed with Attila Yuan MD May 30, 2020 08:24
[2020-05-30] MEDS: Ascorbic Acid 500mg tab GT SCH (08:35)
[2020-05-30] MEDS: levETIRAcetam 500mg/5ml Liquid GT SCH (08:35)
[2020-05-30] MEDS: Multivitamins W/Minerals 15 ML UDC GT SCH (08:35)
[2020-05-30] MEDS: Docusate 100mg/10ml Liq GT SCH ×2 (08:39→18:00)
[2020-05-30] MEDS: Heparin 5000 units/ml inj SUBQ SCH ×2 (08:39→20:53)
--- NOTE | 2020-05-30 10:47 | Infectious Diseases Prog Note ---
Assessment/Plan Assessment/Plan antibiotics : none A 1. Urinary tract infection with E. coli s/p rx 2. MRSA nasal colonization. 3. CHF. 4. COPD. 5. Seizures. 6. Dementia. 7. He is negative for COVID-19. P 1. continue off antibiotics Subjective ROS Limited/Unobtainable: Yes Allergies: Coded Allergies: PENICILLINS (Unverified Allergy, Unknown, 08/11/19) Objective Last 24 Hour Vital Signs Date Time Temp Pulse Resp B/P (MAP) Pulse Ox O2 Delivery O2 Flow Rate FiO2 05/30/20 08:38 73 121/60 05/30/20 08:00 73 05/30/20 08:00 Nasal Cannula 2.0 05/30/20 08:00 2.0 05/30/20 08:00 97.9 73 25 121/60 (80) 99 05/30/20 05:58 101/54 05/30/20 04:00 77 05/30/20 04:00 98.2 75 25 102/45 (64) 99 05/30/20 04:00 2.0 05/30/20 04:00 Nasal Cannula 2.0 05/30/20 00:10 95 Nasal Cannula 2.0 28 05/30/20 00:00 80 05/30/20 00:00 Nasal Cannula 2.0 05/30/20 00:00 98.2 72 22 102/61 (75) 100 05/29/20 22:42 75 26 99 30 05/29/20 20:52 91 23 100 30 05/29/20 20:34 86 119/70 05/29/20 20:00 97.7 86 22 119/70 (86) 100 05/29/20 20:00 Bi-pap 05/29/20 20:00 30 05/29/20 20:00 89 05/29/20 19:43 100 Bi-Pap 30 05/29/20 19:41 89 25 100 30 05/29/20 18:05 122/62 05/29/20 17:30 80 24 99 30 05/29/20 16:00 Bi-pap 05/29/20 16:00 98.1 80 18 122/62 (82) 100 05/29/20 16:00 30 05/29/20 16:00 80 05/29/20 15:25 76 20 99 30 05/29/20 13:40 85 22 98 30 05/29/20 13:02 110/59 05/29/20 12:00 Bi-pap 05/29/20 12:00 98.4 89 20 110/59 (76) 100 05/29/20 12:00 80 05/29/20 12:00 30 05/29/20 11:20 87 20 99 30 Height (Feet): 5 Height (Inches): 6.00 Weight (Pounds): 137 Respiratory/Chest: lungs clear Cardiovascular: normal rate, regular rhythm, no gallop/murmur Abdomen: soft, non tender, other - GT Extremities: no edema Laboratory Tests Test 05/29/20 12:32 05/30/20 03:05 05/30/20 06:48 05/30/20 07:33 Arterial Blood pH 7.426 (7.350-7.450) 7.305 (7.350-7.450) 7.361 (7.350-7.450) Arterial Blood Partial Pressure CO2 47.5 mmHg (35.0-45.0) H 56.4 mmHg (35.0-45.0) *H 50.1 mmHg (35.0-45.0) H Arterial Blood Partial Pressure O2 77.9 mmHg (75.0-100.0) 48.1 mmHg (75.0-100.0) 111.1 mmHg (75.0-100.0) H Arterial Blood HCO3 30.5 mmol/L (22.0-26.0) H 27.4 mmol/L (22.0-26.0) H 27.7 mmol/L (22.0-26.0) H Arterial Blood Oxygen Saturation 95.8 % (95-100) 80.0 % (95-100) *L 97.4 % (95-100) Arterial Blood Base Excess 5.3 (-2-2) H 0.4 (-2-2) 1.6 (-2-2) Apollo Test Positive Positive Positive White Blood Count 12.5 K/UL (4.8-10.8) H Red Blood Count 3.60 M/UL (4.70-6.10) L Hemoglobin 11.8 G/DL (14.2-18.0) L Hematocrit 37.4 % (42.0-52.0) L Mean Corpuscular Volume 104 FL (80-99) H Mean Corpuscular Hemoglobin 32.7 PG (27.0-31.0) H Mean Corpuscular Hemoglobin Concent 31.5 G/DL (32.0-36.0) L Red Cell Distribution Width 14.5 % (11.6-14.8) Platelet Count 139 K/UL (150-450) L Mean Platelet Volume 12.7 FL (6.5-10.1) H Neutrophils (%) (Auto) 63.8 % (45.0-75.0) Lymphocytes (%) (Auto) 20.4 % (20.0-45.0) Monocytes (%) (Auto) 12.8 % (1.0-10.0) H Eosinophils (%) (Auto) 2.5 % (0.0-3.0) Basophils (%) (Auto) 0.5 % (0.0-2.0) Sodium Level 138 MMOL/L (136-145) Potassium Level 3.8 MMOL/L (3.5-5.1) Chloride Level 104 MMOL/L (98-107) Carbon Dioxide Level 32 MMOL/L (21-32) Anion Gap 2 mmol/L (5-15) L Blood Urea Nitrogen 28 mg/dL (7-18) H Creatinine 0.6 MG/DL (0.55-1.30) Estimat Glomerular Filtration Rate > 60 mL/min (>60) Glucose Level 127 MG/DL (74-106) H Calcium Level 8.4 MG/DL (8.5-10.1) L Magnesium Level 2.2 MG/DL (1.8-2.4) Total Bilirubin 0.3 MG/DL (0.2-1.0) Aspartate Amino Transf (AST/SGOT) 23 U/L (15-37) Alanine Aminotransferase (ALT/SGPT) 50 U/L (12-78) Alkaline Phosphatase 82 U/L (46-116) Pro-B-Type Natriuretic Peptide 984 pg/mL (0-125) H Total Protein 6.2 G/DL (6.4-8.2) L Albumin 2.6 G/DL (3.4-5.0) L Globulin 3.6 g/dL Albumin/Globulin Ratio 0.7 (1.0-2.7) L Current Medications Medications (Trade) Dose Ordered Sig/Mayela Route PRN Reason Start Time Stop Time Status Last Admin Dose Admin Acetaminophen (Tylenol) 650 mg Q4H PRN GT back pain 05/06/20 15:15 06/05/20 15:14 05/30/20 00:39 Acetazolamide (Diamox) 250 mg TWICE A DAY GT 05/13/20 09:00 06/12/20 08:59 05/30/20 08:35 Ascorbic Acid (Vitamin C) 500 mg DAILY GT 05/07/20 09:00 06/06/20 08:59 05/30/20 08:35 Carvedilol (Coreg) 3.125 mg EVERY 12 HOURS GT 05/07/20 09:00 06/06/20 08:59 05/30/20 08:38 Clonidine HCl (Catapres Tab) 0.1 mg Q4H PRN ORAL SBP >160 05/08/20 22:15 08/06/20 22:14 Docusate Sodium (Colace) 200 mg BID GT 05/06/20 18:00 06/05/20 17:59 05/29/20 18:05 Heparin Sodium (Porcine) (Heparin 5000 units/ml) 5,000 units EVERY 12 HOURS SUBQ 05/08/20 09:00 06/22/20 08:59 05/26/20 20:28 Levetiracetam (Keppra) 250 mg DAILY GT 05/19/20 15:11 06/18/20 15:10 05/30/20 08:35 Multivitamins (Multivitamins W/ Minerals 15ml Liquid) 5 ml DAILY GT 05/07/20 09:00 06/06/20 08:59 05/30/20 08:35 Nitroglycerin (Nitro-Bid) 1 inch TID@0600,1200,1800 TOPIC 05/16/20 18:00 06/15/20 17:59 05/29/20 18:05 Potassium Chloride (K-Dur) 20 meq DAILY GT 05/13/20 09:00 08/11/20 08:59 05/30/20 08:35 Tamsulosin HCl (Flomax) 0.4 mg BEDTIME ORAL 05/06/20 21:00 06/05/20 20:59 05/29/20 20:34 Josué Light MD May 30, 2020 10:47
[2020-05-30 12:00] VITALS: BP 116/63
--- NOTE | 2020-05-30 14:41 | General Progress Note ---
Subjective ROS Limited/Unobtainable: No Constitutional: Reports: malaise, weakness HEENT: Reports: no symptoms Cardiovascular: Reports: no symptoms Respiratory: Reports: cough, shortness of breath Gastrointestinal/Abdominal: Reports: difficulty swallowing Genitourinary: Reports: no symptoms Neurologic/Psychiatric: Reports: pre-existing deficit, seizure Endocrine: Reports: no symptoms Hematologic/Lymphatic: Reports: anemia Allergies: Coded Allergies: PENICILLINS (Unverified Allergy, Unknown, 08/11/19) All Systems: reviewed and negative except above Subjective Remains on BiPAP. More alert and responsive. Blood gases reviewed. PCO2 improving. Tolerating G-tube feeds. Objective Last 24 Hour Vital Signs Date Time Temp Pulse Resp B/P (MAP) Pulse Ox O2 Delivery O2 Flow Rate FiO2 05/30/20 12:00 98.1 73 25 116/63 (80) 99 05/30/20 12:00 116/63 05/30/20 12:00 2.0 05/30/20 12:00 Nasal Cannula 2.0 05/30/20 08:38 73 121/60 05/30/20 08:00 73 05/30/20 08:00 Nasal Cannula 2.0 05/30/20 08:00 2.0 05/30/20 08:00 97.9 73 25 121/60 (80) 99 05/30/20 07:02 100 Nasal Cannula 2.0 28 05/30/20 05:58 101/54 05/30/20 04:00 77 05/30/20 04:00 98.2 75 25 102/45 (64) 99 05/30/20 04:00 2.0 05/30/20 04:00 Nasal Cannula 2.0 05/30/20 00:10 95 Nasal Cannula 2.0 28 05/30/20 00:00 80 05/30/20 00:00 Nasal Cannula 2.0 05/30/20 00:00 98.2 72 22 102/61 (75) 100 05/29/20 22:42 75 26 99 30 05/29/20 20:52 91 23 100 30 05/29/20 20:34 86 119/70 05/29/20 20:00 97.7 86 22 119/70 (86) 100 05/29/20 20:00 Bi-pap 05/29/20 20:00 30 05/29/20 20:00 89 05/29/20 19:43 100 Bi-Pap 30 05/29/20 19:41 89 25 100 30 05/29/20 18:05 122/62 05/29/20 17:30 80 24 99 30 05/29/20 16:00 Bi-pap 05/29/20 16:00 98.1 80 18 122/62 (82) 100 05/29/20 16:00 30 05/29/20 16:00 80 05/29/20 15:25 76 20 99 30 Intake and Output 05/29/20 05/30/20 19:00 07:00 Intake Total 630 ml 665 ml Output Total 750 ml 475 ml Balance -120 ml 190 ml Intake Free Water 150 ml 225 ml Tube Feeding 480 ml 440 ml Output Urine Total 750 ml 475 ml # Bowel Movements 3 Laboratory Tests 05/30/20 03:05: White Blood Count 12.5H, Red Blood Count 3.60L, Hemoglobin 11.8L, Hematocrit 37.4L, Mean Corpuscular Volume 104H, Mean Corpuscular Hemoglobin 32.7H, Mean Corpuscular Hemoglobin Concent 31.5L, Red Cell Distribution Width 14.5, Platelet Count 139L, Mean Platelet Volume 12.7H, Neutrophils (%) (Auto) 63.8, Lymphocytes (%) (Auto) 20.4, Monocytes (%) (Auto) 12.8H, Eosinophils (%) (Auto) 2.5, Basophils (%) (Auto) 0.5, Sodium Level 138, Potassium Level 3.8, Chloride Level 104, Carbon Dioxide Level 32, Anion Gap 2L, Blood Urea Nitrogen 28H, Creatinine 0.6, Estimat Glomerular Filtration Rate > 60, Glucose Level 127H, Calcium Level 8.4L, Magnesium Level 2.2, Total Bilirubin 0.3, Aspartate Amino Transf (AST/SGOT) 23, Alanine Aminotransferase (ALT/SGPT) 50, Alkaline Phosphatase 82, Pro-B-Type Natriuretic Peptide 984H, Total Protein 6.2L, Albumin 2.6L, Globulin 3.6, Albumin/Globulin Ratio 0.7L 05/30/20 06:48: Arterial Blood pH 7.305L, Arterial Blood Partial Pressure CO2 56.4*H, Arterial Blood Partial Pressure O2 48.1*L, Arterial Blood HCO3 27.4H, Arterial Blood Oxygen Saturation 80.0*L, Arterial Blood Base Excess 0.4, Apollo Test Positive 05/30/20 07:33: Arterial Blood pH 7.361, Arterial Blood Partial Pressure CO2 50.1H, Arterial Blood Partial Pressure O2 111.1H, Arterial Blood HCO3 27.7H, Arterial Blood Oxygen Saturation 97.4, Arterial Blood Base Excess 1.6, Apollo Test Positive Height (Feet): 5 Height (Inches): 6.00 Weight (Pounds): 137 Objective General Appearance: WD/WN, alert, confused EENT: normal ENT inspection Neck: normal alignment Cardiovascular: normal rate Respiratory/Chest: chest wall non-tender, lungs clear, normal breath sounds Abdomen: normal bowel sounds, non tender, soft, no organomegaly Edema: no edema noted Arm (L), no edema noted Arm (R) Neurologic: alert, disoriented Assessment/Plan Problem List: (1) Seizure ICD Codes: R56.9 - Unspecified convulsions SNOMED: 84775549 (2) Dysphagia ICD Codes: R13.10 - Dysphagia, unspecified SNOMED: 43670840, 051896517 (3) UTI (urinary tract infection) ICD Codes: N39.0 - Urinary tract infection, site not specified SNOMED: 55540302 (4) Elevated troponin I level ICD Codes: R77.8 - Other specified abnormalities of plasma proteins SNOMED: 310897334 (5) AMS (altered mental status) ICD Codes: R41.82 - Altered mental status, unspecified SNOMED: 800274973 (6) NSTEMI (non-ST elevated myocardial infarction) ICD Codes: I21.4 - Non-ST elevation (NSTEMI) myocardial infarction SNOMED: 40658147 Status: stable Assessment/Plan: bipap qhs nd prn wean o2 during the day monitor abg- improving tube feeds monitor residuals monitor for vomiting sz rx cxr reviewed- stable monitor labs anxiolytics as needed o2 resp rx dvt/stress ulcer prophylaxis. ivf as needed snf able to accept pt on noctural bipap but not continuous Jorge Kee MD May 30, 2020 14:41
[2020-05-30 16:00] VITALS: BP 114/64
--- NOTE | 2020-05-30 16:29 | Surgery Progress Note ---
Surgery Progress Note Subjective Additional Comments agitated at times pulling at tube soft restraints no n/v labs noted Objective Last 24 Hour Vital Signs Date Time Temp Pulse Resp B/P (MAP) Pulse Ox O2 Delivery O2 Flow Rate FiO2 05/30/20 12:00 98.1 73 25 116/63 (80) 99 05/30/20 12:00 116/63 05/30/20 12:00 2.0 05/30/20 12:00 Nasal Cannula 2.0 05/30/20 08:38 73 121/60 05/30/20 08:00 73 05/30/20 08:00 Nasal Cannula 2.0 05/30/20 08:00 2.0 05/30/20 08:00 97.9 73 25 121/60 (80) 99 05/30/20 07:02 100 Nasal Cannula 2.0 28 05/30/20 05:58 101/54 05/30/20 04:00 77 05/30/20 04:00 98.2 75 25 102/45 (64) 99 05/30/20 04:00 2.0 05/30/20 04:00 Nasal Cannula 2.0 05/30/20 00:10 95 Nasal Cannula 2.0 28 05/30/20 00:00 80 05/30/20 00:00 Nasal Cannula 2.0 05/30/20 00:00 98.2 72 22 102/61 (75) 100 05/29/20 22:42 75 26 99 30 05/29/20 20:52 91 23 100 30 05/29/20 20:34 86 119/70 05/29/20 20:00 97.7 86 22 119/70 (86) 100 05/29/20 20:00 Bi-pap 05/29/20 20:00 30 05/29/20 20:00 89 05/29/20 19:43 100 Bi-Pap 30 05/29/20 19:41 89 25 100 30 05/29/20 18:05 122/62 05/29/20 17:30 80 24 99 30 I&O Intake and Output 05/29/20 05/30/20 19:00 07:00 Intake Total 630 ml 665 ml Output Total 750 ml 475 ml Balance -120 ml 190 ml Intake Free Water 150 ml 225 ml Tube Feeding 480 ml 440 ml Output Urine Total 750 ml 475 ml # Bowel Movements 3 Dressing: saturated Cardiovascular: RSR Respiratory: decreased breath sounds Abdomen: non-tender, present bowel sounds Extremities: no edema, no tenderness, no cyanosis Laboratory Tests Test 05/30/20 03:05 05/30/20 06:48 05/30/20 07:33 White Blood Count 12.5 K/UL (4.8-10.8) H Red Blood Count 3.60 M/UL (4.70-6.10) L Hemoglobin 11.8 G/DL (14.2-18.0) L Hematocrit 37.4 % (42.0-52.0) L Mean Corpuscular Volume 104 FL (80-99) H Mean Corpuscular Hemoglobin 32.7 PG (27.0-31.0) H Mean Corpuscular Hemoglobin Concent 31.5 G/DL (32.0-36.0) L Red Cell Distribution Width 14.5 % (11.6-14.8) Platelet Count 139 K/UL (150-450) L Mean Platelet Volume 12.7 FL (6.5-10.1) H Neutrophils (%) (Auto) 63.8 % (45.0-75.0) Lymphocytes (%) (Auto) 20.4 % (20.0-45.0) Monocytes (%) (Auto) 12.8 % (1.0-10.0) H Eosinophils (%) (Auto) 2.5 % (0.0-3.0) Basophils (%) (Auto) 0.5 % (0.0-2.0) Sodium Level 138 MMOL/L (136-145) Potassium Level 3.8 MMOL/L (3.5-5.1) Chloride Level 104 MMOL/L (98-107) Carbon Dioxide Level 32 MMOL/L (21-32) Anion Gap 2 mmol/L (5-15) L Blood Urea Nitrogen 28 mg/dL (7-18) H Creatinine 0.6 MG/DL (0.55-1.30) Estimat Glomerular Filtration Rate > 60 mL/min (>60) Glucose Level 127 MG/DL (74-106) H Calcium Level 8.4 MG/DL (8.5-10.1) L Magnesium Level 2.2 MG/DL (1.8-2.4) Total Bilirubin 0.3 MG/DL (0.2-1.0) Aspartate Amino Transf (AST/SGOT) 23 U/L (15-37) Alanine Aminotransferase (ALT/SGPT) 50 U/L (12-78) Alkaline Phosphatase 82 U/L (46-116) Pro-B-Type Natriuretic Peptide 984 pg/mL (0-125) H Total Protein 6.2 G/DL (6.4-8.2) L Albumin 2.6 G/DL (3.4-5.0) L Globulin 3.6 g/dL Albumin/Globulin Ratio 0.7 (1.0-2.7) L Arterial Blood pH 7.305 (7.350-7.450) 7.361 (7.350-7.450) Arterial Blood Partial Pressure CO2 56.4 mmHg (35.0-45.0) *H 50.1 mmHg (35.0-45.0) H Arterial Blood Partial Pressure O2 48.1 mmHg (75.0-100.0) 111.1 mmHg (75.0-100.0) H Arterial Blood HCO3 27.4 mmol/L (22.0-26.0) H 27.7 mmol/L (22.0-26.0) H Arterial Blood Oxygen Saturation 80.0 % (95-100) *L 97.4 % (95-100) Arterial Blood Base Excess 0.4 (-2-2) 1.6 (-2-2) Apollo Test Positive Positive Plan Problems: (1) Deep tissue injury Assessment & Plan: Patient identified to have bilateral heel concerns for potential developing DTI. Soft boggy no fluid collection no acute injury at this time. Patient identified to have sacral erythema and skin changes with concerns for developing deep tissue injury as well. No open areas. No fluid collections no fluctuance no drainage. On the scrotum patient is identified to have edema erythema and some abrasion along with incontinence associated dermatitis in the area. Patient identified to have abrasion to the nasal brim secondary to a facemask placement. Patient is chronically ill elderly and malnourished. Wound evaluated and care plan initiated. Treatment plan Apply skin protectant to the nasal bridge followed by foam dressing prior to facemask placement. Patient currently requires oxygen supplementation and therefore important to ensure receiving such along with protection of underlying epidermis. Apply OPTi foam to heels change every 3 days offload pressure with pillows Apply OPTi foam to sacral area monitor for incontinence change accordingly every 3 days and as needed saturation. Soft towel under scrotum. Continue with respiratory supportive care Turn every 2 hours Offload pressure with pillows Continue tube feeds nutritional optimization we will follow with recommendations thank you for let me participate patient's care (2) Dementia with behavioral problem (3) UTI (urinary tract infection) (4) Elevated troponin I level (5) AMS (altered mental status) (6) Dysphagia Assessment & Plan: DAILY ESTIMATED NEEDS: Needs based on Pulmonary, cardiac, 62kg 25-30 kcals/kg 3500-7881 total kcals 1-1.5 g protein/kg 62-93 g total protein 25-30 mL/kg 7891-9574 total fluid mLs NUTRITION DIAGNOSIS: Swallowing difficulty r/t dysphagia as evidenced by pt is PEG dep, currently on continuous BIPAP. CURRENT TF: Glucerna 1.5 @ 40ml/hr ENTERAL NUTRITION RECOMMENDATIONS: Glucerna 1.5 goal of 45ml/hr x 24 hrs to provide 1080ml, 1620 kcal, 89g pro, 820ml free water * Maintain carb controlled TF of Glucerna 1.5 while CO2 critically elevated * As medically appropriate, increase goal rate to 45ml/hr x 24 hrs to better meet nutritional needs. * HOB over 30 degrees/ water flush per MD ADDITIONAL RECOMMENDATIONS: 1) Monitor BIPAP usage, safety of GT feeds -> continuous BIPAP at this time 2) Lytes daily, replete as needed Current TF Glucerna 1.5 @goal of 40ml/hr provides 2419mg K/day 3) Calibrated bed scale wts (Bed scale shows uptrend: 65kg-> 71kg) 4) Rec HgA1C for eval of BG control 5) F/up w/ WC eval: Continue MVI and Vit C (7) Seizure (8) NSTEMI (non-ST elevated myocardial infarction) (9) Respiratory insufficiency Assessment & Plan: constant required bipap ? trach dnr/dni discussed with pcp and pulm Duplex Doppler interrogation of the veins in both upper extremity is performed from the internal jugular veins to the radial and ulnar veins. No thrombus is identified. Basilic and cephalic veins are also patent bilaterally. There is mild subcutaneous edema of the right upper extremity. IMPRESSION: No evidence of deep venous thrombosis involving the upper extremities. Benitez Mayorga May 30, 2020 16:29
--- NOTE | 2020-05-30 16:29 | Cardiology Progress Note ---
Subjective DATE OF SERVICE: May 30, 2020 Remains on bipap due to CO2 retention Confused and pulling off bipap; as such, restraints placed. (05/30/20) 7.36/50/111 CXR (05/26) no change in bilateral airspace disease. Mild CHF BP remains well controlled. BNP decreased to 984. Monitor: sinus with rare atrial ectopy. Objective Last 24 Hour Vital Signs Date Time Temp Pulse Resp B/P (MAP) Pulse Ox O2 Delivery O2 Flow Rate FiO2 05/30/20 12:00 98.1 73 25 116/63 (80) 99 05/30/20 12:00 116/63 05/30/20 12:00 2.0 05/30/20 12:00 Nasal Cannula 2.0 05/30/20 08:38 73 121/60 05/30/20 08:00 73 05/30/20 08:00 Nasal Cannula 2.0 05/30/20 08:00 2.0 05/30/20 08:00 97.9 73 25 121/60 (80) 99 05/30/20 07:02 100 Nasal Cannula 2.0 28 05/30/20 05:58 101/54 05/30/20 04:00 77 05/30/20 04:00 98.2 75 25 102/45 (64) 99 05/30/20 04:00 2.0 05/30/20 04:00 Nasal Cannula 2.0 05/30/20 00:10 95 Nasal Cannula 2.0 28 05/30/20 00:00 80 05/30/20 00:00 Nasal Cannula 2.0 05/30/20 00:00 98.2 72 22 102/61 (75) 100 05/29/20 22:42 75 26 99 30 05/29/20 20:52 91 23 100 30 05/29/20 20:34 86 119/70 05/29/20 20:00 97.7 86 22 119/70 (86) 100 05/29/20 20:00 Bi-pap 05/29/20 20:00 30 05/29/20 20:00 89 05/29/20 19:43 100 Bi-Pap 30 05/29/20 19:41 89 25 100 30 05/29/20 18:05 122/62 05/29/20 17:30 80 24 99 30 ROS: unchanged from my evaluation of 05/06/20 HEENT: normal ENT inspection, other - bipap mask RHYTHM: NSR LUNGS: diminished breath sounds CARDIAC: normal rate, regular rhythm, normal S1 and S2 ABDOMEN: non tender, soft, G-Tube intact EXTREMITIES: non-pitting, No edema Laboratory Tests Test 05/30/20 03:05 05/30/20 06:48 05/30/20 07:33 White Blood Count 12.5 K/UL (4.8-10.8) H Red Blood Count 3.60 M/UL (4.70-6.10) L Hemoglobin 11.8 G/DL (14.2-18.0) L Hematocrit 37.4 % (42.0-52.0) L Mean Corpuscular Volume 104 FL (80-99) H Mean Corpuscular Hemoglobin 32.7 PG (27.0-31.0) H Mean Corpuscular Hemoglobin Concent 31.5 G/DL (32.0-36.0) L Red Cell Distribution Width 14.5 % (11.6-14.8) Platelet Count 139 K/UL (150-450) L Mean Platelet Volume 12.7 FL (6.5-10.1) H Neutrophils (%) (Auto) 63.8 % (45.0-75.0) Lymphocytes (%) (Auto) 20.4 % (20.0-45.0) Monocytes (%) (Auto) 12.8 % (1.0-10.0) H Eosinophils (%) (Auto) 2.5 % (0.0-3.0) Basophils (%) (Auto) 0.5 % (0.0-2.0) Sodium Level 138 MMOL/L (136-145) Potassium Level 3.8 MMOL/L (3.5-5.1) Chloride Level 104 MMOL/L (98-107) Carbon Dioxide Level 32 MMOL/L (21-32) Anion Gap 2 mmol/L (5-15) L Blood Urea Nitrogen 28 mg/dL (7-18) H Creatinine 0.6 MG/DL (0.55-1.30) Estimat Glomerular Filtration Rate > 60 mL/min (>60) Glucose Level 127 MG/DL (74-106) H Calcium Level 8.4 MG/DL (8.5-10.1) L Magnesium Level 2.2 MG/DL (1.8-2.4) Total Bilirubin 0.3 MG/DL (0.2-1.0) Aspartate Amino Transf (AST/SGOT) 23 U/L (15-37) Alanine Aminotransferase (ALT/SGPT) 50 U/L (12-78) Alkaline Phosphatase 82 U/L (46-116) Pro-B-Type Natriuretic Peptide 984 pg/mL (0-125) H Total Protein 6.2 G/DL (6.4-8.2) L Albumin 2.6 G/DL (3.4-5.0) L Globulin 3.6 g/dL Albumin/Globulin Ratio 0.7 (1.0-2.7) L Arterial Blood pH 7.305 (7.350-7.450) 7.361 (7.350-7.450) Arterial Blood Partial Pressure CO2 56.4 mmHg (35.0-45.0) *H 50.1 mmHg (35.0-45.0) H Arterial Blood Partial Pressure O2 48.1 mmHg (75.0-100.0) 111.1 mmHg (75.0-100.0) H Arterial Blood HCO3 27.4 mmol/L (22.0-26.0) H 27.7 mmol/L (22.0-26.0) H Arterial Blood Oxygen Saturation 80.0 % (95-100) *L 97.4 % (95-100) Arterial Blood Base Excess 0.4 (-2-2) 1.6 (-2-2) Apollo Test Positive Positive Assessment/Plan Assessment/Plan E.coli UTI Sepsis Metabolic and toxic encephalopathies Cerebrovascular disease with dementia Acute myocardial ischemia and possible NSTEMI Dehydration/hypernatremia resolved Hypertension/HHD Ac/chronic respiratory acidosis recovering Respiratory failure improving, but still requiring bipap support Ac diastolic CHF; BNP continues improvement. Metabolic acidosis Pleural effusions Ac/chr renal failure with azotemia Continue anti-anginal regimen; titrate meds for BP control. Maintain nitrates. Antimicrobment. Monitor acid-base parameters; reassess acetazolamide therapy based on bicarb levels. Diuresis based on clinical parameters; monitor volume status and trend BNP. Bipap support-taper to nighttime only. Real Magana MD May 30, 2020 16:29
[2020-05-30 20:00] VITALS: BP 115/66
[2020-05-30] MEDS: Tamsulosin 0.4mg cap ORAL SCH (20:51)
[2020-05-31] VITALS: BP 104/51
[2020-05-31 04:00] VITALS: BP 115/60
[2020-05-31] MEDS: Nitroglycerin 2% oint pkt TOPIC SCH ×3 (05:15→17:53)
[2020-05-31 08:00] VITALS: BP 115/68
[2020-05-31] MEDS: Heparin 5000 units/ml inj SUBQ SCH ×2 (09:00→21:00)
--- NOTE | 2020-05-31 09:23 | Pulmonology Progress Note ---
Subjective ROS Limited/Unobtainable: No Constitutional: Denies: fever Allergies: Coded Allergies: PENICILLINS (Unverified Allergy, Unknown, 08/11/19) All Systems: reviewed and negative except above Subjective care noted off BIPAP improving co2 retention noted imaging noted Objective Last 24 Hour Vital Signs Date Time Temp Pulse Resp B/P (MAP) Pulse Ox O2 Delivery O2 Flow Rate FiO2 05/31/20 07:20 66 18 98 30 05/31/20 07:20 98 Bi-Pap 30 05/31/20 05:15 136/60 05/31/20 04:00 Nasal Cannula 2.0 05/31/20 04:00 97.8 89 22 115/60 (78) 99 05/31/20 04:00 2.5 05/31/20 03:40 79 05/31/20 00:00 2.5 05/31/20 00:00 97.9 82 22 104/51 (68) 100 05/31/20 00:00 Nasal Cannula 2.0 05/30/20 23:37 87 05/30/20 23:15 82 23 99 30 05/30/20 20:52 82 115/66 05/30/20 20:00 80 05/30/20 20:00 2.5 05/30/20 20:00 98.1 82 20 115/66 (82) 99 05/30/20 20:00 Nasal Cannula 2.0 05/30/20 19:27 100 Bi-Pap 30 05/30/20 19:11 78 15 100 30 05/30/20 18:43 114/63 05/30/20 16:00 98.2 80 23 114/64 (81) 99 05/30/20 16:00 Nasal Cannula 2.0 05/30/20 16:00 73 05/30/20 16:00 2.0 05/30/20 12:00 98.1 73 25 116/63 (80) 99 05/30/20 12:00 71 05/30/20 12:00 116/63 05/30/20 12:00 2.0 05/30/20 12:00 Nasal Cannula 2.0 Intake and Output 05/30/20 05/31/20 19:00 07:00 Intake Total 680 ml 630 ml Output Total 850 ml Balance 680 ml -220 ml Intake Free Water 200 ml 150 ml Tube Feeding 480 ml 480 ml Output Urine Total 850 ml # Bowel Movements 1 Objective WDWN NAD reduced breath sounds bilaterally without rhonchi [id number] without MRG NABS nontender no CC mild edema nonfocal off BIPAP reduced LOC Current Medications Medications (Trade) Dose Ordered Sig/Mayela Route PRN Reason Start Time Stop Time Status Last Admin Dose Admin Acetaminophen (Tylenol) 650 mg Q4H PRN GT back pain 05/06/20 15:15 06/05/20 15:14 05/30/20 00:39 Acetazolamide (Diamox) 250 mg TWICE A DAY GT 05/13/20 09:00 06/12/20 08:59 05/30/20 18:43 Ascorbic Acid (Vitamin C) 500 mg DAILY GT 05/07/20 09:00 06/06/20 08:59 05/30/20 08:35 Carvedilol (Coreg) 3.125 mg EVERY 12 HOURS GT 05/07/20 09:00 06/06/20 08:59 05/30/20 20:52 Clonidine HCl (Catapres Tab) 0.1 mg Q4H PRN ORAL SBP >160 05/08/20 22:15 08/06/20 22:14 Docusate Sodium (Colace) 200 mg BID GT 05/06/20 18:00 06/05/20 17:59 05/29/20 18:05 Heparin Sodium (Porcine) (Heparin 5000 units/ml) 5,000 units EVERY 12 HOURS SUBQ 05/08/20 09:00 06/22/20 08:59 05/26/20 20:28 Levetiracetam (Keppra) 250 mg DAILY GT 05/19/20 15:11 06/18/20 15:10 05/30/20 08:35 Multivitamins (Multivitamins W/ Minerals 15ml Liquid) 5 ml DAILY GT 05/07/20 09:00 06/06/20 08:59 05/30/20 08:35 Nitroglycerin (Nitro-Bid) 1 inch TID@0600,1200,1800 TOPIC 05/16/20 18:00 06/15/20 17:59 05/31/20 05:15 Potassium Chloride (K-Dur) 20 meq DAILY GT 05/13/20 09:00 08/11/20 08:59 05/30/20 08:35 Tamsulosin HCl (Flomax) 0.4 mg BEDTIME ORAL 05/06/20 21:00 06/05/20 20:59 05/30/20 20:51 Assessment/Plan Assessment/Plan ASSESSMENT: Pulmonary congestion, respiratory failure, hypoxemia dementia, G-tube, seizure disorder, congestive heart failure, COPD sepsis, and acute NH. acute on chronic CO2 retention PLAN: oxygen and need for BIPAP reviewed; repeat ABG noted and improved. Br eathing treatments and aspiration precautions. Monitor blood gases for change.keep negative. seizure medications. feeds and monitor residuals; DNR noted DVT prophylaxis significant CO2 retention without BIPAP- for prolonged periods needs chronic therapy remains guarded and difficult to place d/w primary impression, plan, and exam edited and reviewed in detail care discussed with Attila Yuan MD May 31, 2020 09:23
--- NOTE | 2020-05-31 09:34 | General Progress Note ---
Subjective ROS Limited/Unobtainable: No Constitutional: Reports: malaise, weakness HEENT: Reports: no symptoms Cardiovascular: Reports: no symptoms Respiratory: Reports: cough, shortness of breath, sputum Gastrointestinal/Abdominal: Reports: difficulty swallowing Genitourinary: Reports: no symptoms Neurologic/Psychiatric: Reports: anxiety, depressed, emotional problems Endocrine: Reports: no symptoms Hematologic/Lymphatic: Reports: anemia Allergies: Coded Allergies: PENICILLINS (Unverified Allergy, Unknown, 08/11/19) All Systems: reviewed and negative except above Subjective Remains on BiPAP. More alert and responsive. Blood gases reviewed. PCO2 improving. Tolerating G-tube feeds. low-grade temperature noted. Objective Last 24 Hour Vital Signs Date Time Temp Pulse Resp B/P (MAP) Pulse Ox O2 Delivery O2 Flow Rate FiO2 05/31/20 08:00 99.9 72 27 115/68 (84) 98 05/31/20 07:20 66 18 98 30 05/31/20 07:20 98 Bi-Pap 30 05/31/20 05:15 136/60 05/31/20 04:00 Nasal Cannula 2.0 05/31/20 04:00 97.8 89 22 115/60 (78) 99 05/31/20 04:00 2.5 05/31/20 03:40 79 05/31/20 00:00 2.5 05/31/20 00:00 97.9 82 22 104/51 (68) 100 05/31/20 00:00 Nasal Cannula 2.0 05/30/20 23:37 87 05/30/20 23:15 82 23 99 30 05/30/20 20:52 82 115/66 05/30/20 20:00 80 05/30/20 20:00 2.5 05/30/20 20:00 98.1 82 20 115/66 (82) 99 05/30/20 20:00 Nasal Cannula 2.0 05/30/20 19:27 100 Bi-Pap 30 05/30/20 19:11 78 15 100 30 05/30/20 18:43 114/63 05/30/20 16:00 98.2 80 23 114/64 (81) 99 05/30/20 16:00 Nasal Cannula 2.0 05/30/20 16:00 73 05/30/20 16:00 2.0 05/30/20 12:00 98.1 73 25 116/63 (80) 99 05/30/20 12:00 71 05/30/20 12:00 116/63 05/30/20 12:00 2.0 05/30/20 12:00 Nasal Cannula 2.0 Intake and Output 05/30/20 05/31/20 19:00 07:00 Intake Total 680 ml 630 ml Output Total 850 ml Balance 680 ml -220 ml Intake Free Water 200 ml 150 ml Tube Feeding 480 ml 480 ml Output Urine Total 850 ml # Bowel Movements 1 Height (Feet): 5 Height (Inches): 6.00 Weight (Pounds): 137 Objective General Appearance: WD/WN, alert, confused EENT: normal ENT inspection Neck: normal alignment Cardiovascular: normal rate Respiratory/Chest: chest wall non-tender, lungs clear, normal breath sounds Abdomen: normal bowel sounds, non tender, soft, no organomegaly Edema: no edema noted Arm (L), no edema noted Arm (R) Neurologic: alert, disoriented Assessment/Plan Problem List: (1) Seizure ICD Codes: R56.9 - Unspecified convulsions SNOMED: 25254990 (2) Dysphagia ICD Codes: R13.10 - Dysphagia, unspecified SNOMED: 46937011, 832045711 (3) UTI (urinary tract infection) ICD Codes: N39.0 - Urinary tract infection, site not specified SNOMED: 39741006 (4) Elevated troponin I level ICD Codes: R77.8 - Other specified abnormalities of plasma proteins SNOMED: 778693355 (5) AMS (altered mental status) ICD Codes: R41.82 - Altered mental status, unspecified SNOMED: 370232391 (6) NSTEMI (non-ST elevated myocardial infarction) ICD Codes: I21.4 - Non-ST elevation (NSTEMI) myocardial infarction SNOMED: 93156235 Status: stable Assessment/Plan: bipap qhs nd prn wean o2 during the day monitor abg- improving tube feeds monitor residuals monitor for vomiting sz rx cxr reviewed- stable monitor labs anxiolytics as needed o2 resp rx dvt/stress ulcer prophylaxis. ivf as needed snf able to accept pt on noctural bipap but not continuous Repeat Covid swab Anticipate discharge Tuesday if stable Jorge Kee MD May 31, 2020 09:34
[2020-05-31] MEDS: levETIRAcetam 500mg/5ml Liquid GT SCH (09:38)
[2020-05-31] MEDS: Docusate 100mg/10ml Liq GT SCH ×2 (09:38→17:53)
[2020-05-31] MEDS: Ascorbic Acid 500mg tab GT SCH (09:39)
[2020-05-31] MEDS: Multivitamins W/Minerals 15 ML UDC GT SCH (09:39)
[2020-05-31 12:00] VITALS: BP 101/51
--- NOTE | 2020-05-31 12:05 | Infectious Diseases Prog Note ---
Assessment/Plan Assessment/Plan A: 1. Urinary tract infection treated 2. MRSA nasal colonization. 3. CHF. 4. COPD. 5. Seizures. 6. Dementia. 7. He is negative for COVID-19. 8. Hypercapnic respiratory failure 9. Pleural effusion 10. Leukocytosis PLAN: 1. Observe off of antibiotic 2. repeat CXR Subjective ROS Limited/Unobtainable: Yes Neurologic: Reports: confusion, other - on restraint Allergies: Coded Allergies: PENICILLINS (Unverified Allergy, Unknown, 08/11/19) Objective Last 24 Hour Vital Signs Date Time Temp Pulse Resp B/P (MAP) Pulse Ox O2 Delivery O2 Flow Rate FiO2 05/31/20 09:39 72 115/68 05/31/20 08:00 30 05/31/20 08:00 99.9 72 27 115/68 (84) 98 05/31/20 08:00 Bi-pap 05/31/20 08:00 88 05/31/20 07:20 66 18 98 30 05/31/20 07:20 98 Bi-Pap 30 05/31/20 05:15 136/60 05/31/20 04:00 Nasal Cannula 2.0 05/31/20 04:00 97.8 89 22 115/60 (78) 99 05/31/20 04:00 2.5 05/31/20 03:40 79 05/31/20 00:00 2.5 05/31/20 00:00 97.9 82 22 104/51 (68) 100 05/31/20 00:00 Nasal Cannula 2.0 05/30/20 23:37 87 05/30/20 23:15 82 23 99 30 05/30/20 20:52 82 115/66 05/30/20 20:00 80 05/30/20 20:00 2.5 05/30/20 20:00 98.1 82 20 115/66 (82) 99 05/30/20 20:00 Nasal Cannula 2.0 05/30/20 19:27 100 Bi-Pap 30 05/30/20 19:11 78 15 100 30 05/30/20 18:43 114/63 05/30/20 16:00 98.2 80 23 114/64 (81) 99 05/30/20 16:00 Nasal Cannula 2.0 05/30/20 16:00 73 05/30/20 16:00 2.0 Height (Feet): 5 Height (Inches): 6.00 Weight (Pounds): 137 HEENT: mucous membranes moist Respiratory/Chest: decreased breath sounds, other - on BIPAP Cardiovascular: normal rate Abdomen: soft, non tender Extremities: no edema Neurologic/Psychiatric: alert, responsive, disoriented Current Medications Medications (Trade) Dose Ordered Sig/Mayela Route PRN Reason Start Time Stop Time Status Last Admin Dose Admin Acetaminophen (Tylenol) 650 mg Q4H PRN GT back pain 05/06/20 15:15 06/05/20 15:14 05/30/20 00:39 Acetazolamide (Diamox) 250 mg TWICE A DAY GT 05/13/20 09:00 06/12/20 08:59 05/31/20 09:38 Ascorbic Acid (Vitamin C) 500 mg DAILY GT 05/07/20 09:00 06/06/20 08:59 05/31/20 09:39 Carvedilol (Coreg) 3.125 mg EVERY 12 HOURS GT 05/07/20 09:00 06/06/20 08:59 05/31/20 09:39 Clonidine HCl (Catapres Tab) 0.1 mg Q4H PRN ORAL SBP >160 05/08/20 22:15 08/06/20 22:14 Docusate Sodium (Colace) 200 mg BID GT 05/06/20 18:00 06/05/20 17:59 05/31/20 09:38 Heparin Sodium (Porcine) (Heparin 5000 units/ml) 5,000 units EVERY 12 HOURS SUBQ 05/08/20 09:00 06/22/20 08:59 05/26/20 20:28 Levetiracetam (Keppra) 250 mg DAILY GT 05/19/20 15:11 06/18/20 15:10 05/31/20 09:38 Multivitamins (Multivitamins W/ Minerals 15ml Liquid) 5 ml DAILY GT 05/07/20 09:00 06/06/20 08:59 05/31/20 09:39 Nitroglycerin (Nitro-Bid) 1 inch TID@0600,1200,1800 TOPIC 05/16/20 18:00 06/15/20 17:59 05/31/20 05:15 Potassium Chloride (K-Dur) 20 meq DAILY GT 05/13/20 09:00 08/11/20 08:59 05/31/20 09:39 Tamsulosin HCl (Flomax) 0.4 mg BEDTIME ORAL 05/06/20 21:00 06/05/20 20:59 05/30/20 20:51 Luis Yanes MD May 31, 2020 12:05
--- NOTE | 2020-05-31 13:00 | Surgery Progress Note ---
Surgery Progress Note Subjective Symptoms: improved, tolerating diet, passing flatus, BM Objective Last 24 Hour Vital Signs Date Time Temp Pulse Resp B/P (MAP) Pulse Ox O2 Delivery O2 Flow Rate FiO2 05/31/20 12:58 101/51 05/31/20 12:00 30 05/31/20 12:00 98.0 70 14 101/51 (68) 100 05/31/20 12:00 Bi-pap 05/31/20 09:39 72 115/68 05/31/20 08:00 30 05/31/20 08:00 99.9 72 27 115/68 (84) 98 05/31/20 08:00 Bi-pap 05/31/20 08:00 88 05/31/20 07:20 66 18 98 30 05/31/20 07:20 98 Bi-Pap 30 05/31/20 05:15 136/60 05/31/20 04:00 Nasal Cannula 2.0 05/31/20 04:00 97.8 89 22 115/60 (78) 99 05/31/20 04:00 2.5 05/31/20 03:40 79 05/31/20 00:00 2.5 05/31/20 00:00 97.9 82 22 104/51 (68) 100 05/31/20 00:00 Nasal Cannula 2.0 05/30/20 23:37 87 05/30/20 23:15 82 23 99 30 05/30/20 20:52 82 115/66 05/30/20 20:00 80 05/30/20 20:00 2.5 05/30/20 20:00 98.1 82 20 115/66 (82) 99 05/30/20 20:00 Nasal Cannula 2.0 05/30/20 19:27 100 Bi-Pap 30 05/30/20 19:11 78 15 100 30 05/30/20 18:43 114/63 05/30/20 16:00 98.2 80 23 114/64 (81) 99 05/30/20 16:00 Nasal Cannula 2.0 05/30/20 16:00 73 05/30/20 16:00 2.0 I&O Intake and Output 05/30/20 05/31/20 19:00 07:00 Intake Total 680 ml 630 ml Output Total 850 ml Balance 680 ml -220 ml Intake Free Water 200 ml 150 ml Tube Feeding 480 ml 480 ml Output Urine Total 850 ml # Bowel Movements 1 Dressing: saturated Cardiovascular: RSR Respiratory: decreased breath sounds Abdomen: soft, non-tender, present bowel sounds Extremities: no tenderness, no cyanosis Plan Problems: (1) Deep tissue injury Assessment & Plan: Patient identified to have bilateral heel concerns for potential developing DTI. Soft boggy no fluid collection no acute injury at this time. Patient identified to have sacral erythema and skin changes with concerns for developing deep tissue injury as well. No open areas. No fluid collections no fluctuance no drainage. On the scrotum patient is identified to have edema erythema and some abrasion along with incontinence associated dermatitis in the area. Patient identified to have abrasion to the nasal brim secondary to a facemask placement. Patient is chronically ill elderly and malnourished. Wound evaluated and care plan initiated. Treatment plan Apply skin protectant to the nasal bridge followed by foam dressing prior to facemask placement. Patient currently requires oxygen supplementation and therefore important to ensure receiving such along with protection of underlying epidermis. Apply OPTi foam to heels change every 3 days offload pressure with pillows Apply OPTi foam to sacral area monitor for incontinence change accordingly every 3 days and as needed saturation. Soft towel under scrotum. Continue with respiratory supportive care Turn every 2 hours Offload pressure with pillows Continue tube feeds nutritional optimization we will follow with recommendations thank you for let me participate patient's care (2) Dementia with behavioral problem (3) UTI (urinary tract infection) (4) Elevated troponin I level (5) AMS (altered mental status) (6) Dysphagia Assessment & Plan: DAILY ESTIMATED NEEDS: Needs based on Pulmonary, cardiac, 62kg 25-30 kcals/kg 4535-3170 total kcals 1-1.5 g protein/kg 62-93 g total protein 25-30 mL/kg 6900-4640 total fluid mLs NUTRITION DIAGNOSIS: Swallowing difficulty r/t dysphagia as evidenced by pt is PEG dep, currently on continuous BIPAP. CURRENT TF: Glucerna 1.5 @ 40ml/hr ENTERAL NUTRITION RECOMMENDATIONS: Glucerna 1.5 goal of 45ml/hr x 24 hrs to provide 1080ml, 1620 kcal, 89g pro, 820ml free water * Maintain carb controlled TF of Glucerna 1.5 while CO2 critically elevated * As medically appropriate, increase goal rate to 45ml/hr x 24 hrs to better meet nutritional needs. * HOB over 30 degrees/ water flush per MD ADDITIONAL RECOMMENDATIONS: 1) Monitor BIPAP usage, safety of GT feeds -> continuous BIPAP at this time 2) Lytes daily, replete as needed Current TF Glucerna 1.5 @goal of 40ml/hr provides 2419mg K/day 3) Calibrated bed scale wts (Bed scale shows uptrend: 65kg-> 71kg) 4) Rec HgA1C for eval of BG control 5) F/up w/ WC eval: Continue MVI and Vit C (7) Seizure (8) NSTEMI (non-ST elevated myocardial infarction) (9) Respiratory insufficiency Assessment & Plan: constant required bipap ? trach dnr/dni discussed with pcp and pulm Duplex Doppler interrogation of the veins in both upper extremity is performed from the internal jugular veins to the radial and ulnar veins. No thrombus is identified. Basilic and cephalic veins are also patent bilaterally. There is mild subcutaneous edema of the right upper extremity. IMPRESSION: No evidence of deep venous thrombosis involving the upper extremities. Benitez Mayorga May 31, 2020 13:00
[2020-05-31 16:00] VITALS: BP 117/58
[2020-05-31 20:00] VITALS: BP 122/53
[2020-05-31] MEDS: Tamsulosin 0.4mg cap ORAL SCH (21:00)
[2020-06-01] VITALS: BP 117/50
--- NOTE | 2020-06-01 03:42 | Cardiology Progress Note ---
Subjective DATE OF SERVICE: May 31, 2020 Remains on bipap due to CO2 retention; but improved over past 2 days. (05/30/20) 7.36/50/111 CXR (05/26) no change in bilateral airspace disease. Mild CHF BP remains well controlled. BNP decreased to 984. Monitor: sinus with rare atrial ectopy. Objective Last 24 Hour Vital Signs Date Time Temp Pulse Resp B/P (MAP) Pulse Ox O2 Delivery O2 Flow Rate FiO2 06/01/20 00:00 98.1 71 27 117/50 (72) 98 06/01/20 00:00 Bi-pap Bi-pap 06/01/20 00:00 81 05/31/20 23:00 50 20 98 30 05/31/20 21:00 86 122/53 05/31/20 20:00 98.8 86 14 122/53 (76) 97 05/31/20 20:00 Bi-pap Bi-pap 05/31/20 20:00 2.0 05/31/20 20:00 88 05/31/20 19:50 95 Nasal Cannula 2.0 28 05/31/20 17:53 117/58 05/31/20 16:46 74 05/31/20 16:00 99.9 79 14 117/58 (77) 100 05/31/20 15:53 Bi-pap 05/31/20 15:52 2.0 05/31/20 12:58 101/51 05/31/20 12:00 30 05/31/20 12:00 98.0 70 14 101/51 (68) 100 05/31/20 12:00 Bi-pap 05/31/20 12:00 77 05/31/20 09:39 72 115/68 05/31/20 08:00 30 05/31/20 08:00 99.9 72 27 115/68 (84) 98 05/31/20 08:00 Bi-pap 05/31/20 08:00 88 05/31/20 07:20 66 18 98 30 05/31/20 07:20 98 Bi-Pap 30 05/31/20 05:15 136/60 05/31/20 04:00 Nasal Cannula 2.0 05/31/20 04:00 97.8 89 22 115/60 (78) 99 05/31/20 04:00 2.5 ROS: unchanged from my evaluation of 05/06/20 HEENT: normal ENT inspection, other - bipap mask RHYTHM: NSR LUNGS: diminished breath sounds CARDIAC: normal rate, regular rhythm, normal S1 and S2 ABDOMEN: non tender, soft, G-Tube intact EXTREMITIES: non-pitting, No edema Assessment/Plan Assessment/Plan E.coli UTI Sepsis Metabolic and toxic encephalopathies Cerebrovascular disease with dementia Acute myocardial ischemia and possible NSTEMI Dehydration/hypernatremia resolved Hypertension/HHD Ac/chronic respiratory acidosis recovering Respiratory failure improving, but still requiring bipap support Ac diastolic CHF; BNP continues improvement. Metabolic acidosis Pleural effusions Ac/chr renal failure with azotemia Continue anti-anginal regimen; titrate meds for BP control. Maintain nitrates. Antimicrobment. Monitor acid-base parameters; reassess acetazolamide therapy based on bicarb levels. Diuresis based on clinical parameters; monitor volume status and trend BNP. Bipap support-taper to nighttime only. Real Magana MD Jun 01, 2020 03:42
[2020-06-01 04:00] VITALS: BP 114/50
[2020-06-01] MEDS: Nitroglycerin 2% oint pkt TOPIC SCH ×3 (05:08→18:19)
[2020-06-01 05:12] LABS: BASOPHILS % (AUTO) 0.6 % (0.0-2.0); EOSINOPHILS % (AUTO) 2.7 % (0.0-3.0); HEMATOCRIT 42.8 % (42.0-52.0); HEMOGLOBIN 13.2 G/DL (14.2-18.0); LYMPHOCYTES % (AUTO) 21.9 % (20.0-45.0); MEAN CORPUSCULAR VOLUME 106 FL (80-99); NEUTROPHILS % (AUTO) 62.8 % (45.0-75.0); PLATELET COUNT 151 K/UL (150-450); RED BLOOD COUNT 4.04 M/UL (4.70-6.10); RED CELL DISTRIBUTION WIDTH 15.4 % (11.6-14.8); WHITE BLOOD COUNT 10.1 K/UL (4.8-10.8)
[2020-06-01 05:44] LABS: ALANINE AMINOTRANSFERASE 43 U/L (12-78); ALBUMIN 2.7 G/DL (3.4-5.0); ALBUMIN/GLOBULIN RATIO 0.7 (1.0-2.7); ALKALINE PHOSPHATASE 89 U/L (46-116); ANION GAP 4 mmol/L (5-15); ASPARTATE AMINO TRANSFERASE 21 U/L (15-37); BILIRUBIN,TOTAL 0.4 MG/DL (0.2-1.0); BLOOD UREA NITROGEN 33 mg/dL (7-18); CALCIUM 8.8 MG/DL (8.5-10.1); CARBON DIOXIDE 34 MMOL/L (21-32); CHLORIDE 107 MMOL/L (98-107); CREATININE 0.5 MG/DL (0.55-1.30); POTASSIUM 4.4 MMOL/L (3.5-5.1); SODIUM 145 MMOL/L (136-145)
[2020-06-01 08:00] VITALS: BP 134/59
[2020-06-01] MEDS: Heparin 5000 units/ml inj SUBQ SCH ×2 (09:00→20:06)
--- NOTE | 2020-06-01 09:18 | General Progress Note ---
Subjective ROS Limited/Unobtainable: No Constitutional: Reports: malaise, weakness HEENT: Reports: no symptoms Cardiovascular: Reports: no symptoms Respiratory: Reports: cough, shortness of breath, sputum Gastrointestinal/Abdominal: Reports: difficulty swallowing Genitourinary: Reports: no symptoms Neurologic/Psychiatric: Reports: pre-existing deficit, seizure Endocrine: Reports: no symptoms Hematologic/Lymphatic: Reports: no symptoms Allergies: Coded Allergies: PENICILLINS (Unverified Allergy, Unknown, 08/11/19) All Systems: reviewed and negative except above Subjective Remains on BiPAP at night. off during the day. More alert and responsive. Blood gases reviewed. PCO2 improving. Tolerating G-tube feeds. low-grade temperature better Objective Last 24 Hour Vital Signs Date Time Temp Pulse Resp B/P (MAP) Pulse Ox O2 Delivery O2 Flow Rate FiO2 06/01/20 05:08 114/50 06/01/20 04:00 78 06/01/20 04:00 97.9 73 30 114/50 (71) 100 06/01/20 04:00 30 06/01/20 04:00 Bi-pap Bi-pap 06/01/20 03:20 75 28 100 30 06/01/20 00:00 98.1 71 27 117/50 (72) 98 06/01/20 00:00 Bi-pap Bi-pap 06/01/20 00:00 81 05/31/20 23:00 50 20 98 30 05/31/20 21:00 86 122/53 05/31/20 20:00 98.8 86 14 122/53 (76) 97 05/31/20 20:00 Bi-pap Bi-pap 05/31/20 20:00 2.0 05/31/20 20:00 88 05/31/20 19:50 95 Nasal Cannula 2.0 28 05/31/20 17:53 117/58 05/31/20 16:46 74 05/31/20 16:00 99.9 79 14 117/58 (77) 100 05/31/20 15:53 Bi-pap 05/31/20 15:52 2.0 05/31/20 12:58 101/51 05/31/20 12:00 30 05/31/20 12:00 98.0 70 14 101/51 (68) 100 05/31/20 12:00 Bi-pap 05/31/20 12:00 77 05/31/20 09:39 72 115/68 Intake and Output 05/31/20 06/01/20 18:59 06:59 Intake Total 520 ml Output Total 550 ml Balance 520 ml -550 ml Intake Free Water 120 ml Tube Feeding 400 ml Output Urine Total 550 ml # Bowel Movements 1 3 Laboratory Tests 06/01/20 04:10: White Blood Count 10.1, Red Blood Count 4.04L, Hemoglobin 13.2L, Hematocrit 42.8, Mean Corpuscular Volume 106H, Mean Corpuscular Hemoglobin 32.7H, Mean Corpuscular Hemoglobin Concent 30.8L, Red Cell Distribution Width 15.4H, Platelet Count 151, Mean Platelet Volume 13.2H, Neutrophils (%) (Auto) 62.8, Lymphocytes (%) (Auto) 21.9, Monocytes (%) (Auto) 12.0H, Eosinophils (%) (Auto) 2.7, Basophils (%) (Auto) 0.6, Sodium Level 145, Potassium Level 4.4, Chloride Level 107, Carbon Dioxide Level 34H, Anion Gap 4L, Blood Urea Nitrogen 33H, Creatinine 0.5L, Estimat Glomerular Filtration Rate > 60, Glucose Level 135H, Calcium Level 8.8, Total Bilirubin 0.4, Aspartate Amino Transf (AST/SGOT) 21, Alanine Aminotransferase (ALT/SGPT) 43, Alkaline Phosphatase 89, Pro-B-Type Natriuretic Peptide 1023H, Total Protein 6.6, Albumin 2.7L, Globulin 3.9, Albumin/Globulin Ratio 0.7L Height (Feet): 5 Height (Inches): 6.00 Weight (Pounds): 137 Objective General Appearance: WD/WN, alert, confused EENT: normal ENT inspection Neck: normal alignment Cardiovascular: normal rate Respiratory/Chest: chest wall non-tender, lungs clear, normal breath sounds Abdomen: normal bowel sounds, non tender, soft, no organomegaly Edema: no edema noted Arm (L), no edema noted Arm (R) Neurologic: alert, disoriented Assessment/Plan Problem List: (1) Seizure ICD Codes: R56.9 - Unspecified convulsions SNOMED: 98761228 (2) Dysphagia ICD Codes: R13.10 - Dysphagia, unspecified SNOMED: 12234867, 565495169 (3) UTI (urinary tract infection) ICD Codes: N39.0 - Urinary tract infection, site not specified SNOMED: 35500964 (4) Elevated troponin I level ICD Codes: R77.8 - Other specified abnormalities of plasma proteins SNOMED: 488240678 (5) AMS (altered mental status) ICD Codes: R41.82 - Altered mental status, unspecified SNOMED: 607028577 (6) NSTEMI (non-ST elevated myocardial infarction) ICD Codes: I21.4 - Non-ST elevation (NSTEMI) myocardial infarction SNOMED: 72925971 Status: stable Assessment/Plan: bipap qhs nd prn wean o2 during the day monitor abg- improving tube feeds monitor residuals monitor for vomiting sz rx cxr reviewed- stable monitor labs anxiolytics as needed o2 resp rx dvt/stress ulcer prophylaxis. ivf as needed snf able to accept pt on noctural bipap but not continuous Repeat Covid swab Anticipate discharge Tuesday if stable Jorge Kee MD Jun 01, 2020 09:18
--- NOTE | 2020-06-01 09:23 | Diagnostic Imaging Report ---
EXAM: XR Chest, 1 View CLINICAL HISTORY: INFECT TECHNIQUE: Frontal view of the chest. COMPARISON: Chest radiograph May 26, 2020 FINDINGS/IMPRESSION: Low lung volumes secondary to poor inspiration. Small bilateral pleural effusions. Left basilar consolidation, correlate for infiltrate this is more consolidated than when compared to May 26, 2020. No pneumothorax. Mild vascular congestion. Cardiomegaly. Calcified tortuous aorta.
[2020-06-01] MEDS: Docusate 100mg/10ml Liq GT SCH ×2 (09:48→18:19)
[2020-06-01] MEDS: levETIRAcetam 500mg/5ml Liquid GT SCH (09:49)
[2020-06-01] MEDS: Ascorbic Acid 500mg tab GT SCH (09:50)
[2020-06-01] MEDS: Multivitamins W/Minerals 15 ML UDC GT SCH (09:50)
--- NOTE | 2020-06-01 10:14 | Pulmonology Progress Note ---
Subjective ROS Limited/Unobtainable: No Constitutional: Denies: fever Allergies: Coded Allergies: PENICILLINS (Unverified Allergy, Unknown, 08/11/19) All Systems: reviewed and negative except above Subjective care noted off BIPAP improving co2 retention noted imaging noted Objective Last 24 Hour Vital Signs Date Time Temp Pulse Resp B/P (MAP) Pulse Ox O2 Delivery O2 Flow Rate FiO2 06/01/20 09:48 82 134/59 06/01/20 07:27 98 Nasal Cannula 2.0 28 06/01/20 05:08 114/50 06/01/20 04:00 78 06/01/20 04:00 97.9 73 30 114/50 (71) 100 06/01/20 04:00 30 06/01/20 04:00 Bi-pap Bi-pap 06/01/20 03:20 75 28 100 30 06/01/20 00:00 98.1 71 27 117/50 (72) 98 06/01/20 00:00 Bi-pap Bi-pap 06/01/20 00:00 81 05/31/20 23:00 50 20 98 30 05/31/20 21:00 86 122/53 05/31/20 20:00 98.8 86 14 122/53 (76) 97 05/31/20 20:00 Bi-pap Bi-pap 05/31/20 20:00 2.0 05/31/20 20:00 88 05/31/20 19:50 95 Nasal Cannula 2.0 28 05/31/20 17:53 117/58 05/31/20 16:46 74 05/31/20 16:00 99.9 79 14 117/58 (77) 100 05/31/20 15:53 Bi-pap 05/31/20 15:52 2.0 05/31/20 12:58 101/51 05/31/20 12:00 30 05/31/20 12:00 98.0 70 14 101/51 (68) 100 05/31/20 12:00 Bi-pap 05/31/20 12:00 77 Intake and Output 05/31/20 06/01/20 19:00 07:00 Intake Total 440 ml Output Total 550 ml Balance 440 ml -550 ml Intake Free Water 120 ml Tube Feeding 320 ml Output Urine Total 550 ml # Bowel Movements 1 3 Objective WDWN NAD reduced breath sounds bilaterally without rhonchi [id number] without MRG NABS nontender no CC mild edema nonfocal off BIPAP reduced LOC Laboratory Tests 06/01/20 04:10: White Blood Count 10.1, Red Blood Count 4.04L, Hemoglobin 13.2L, Hematocrit 42.8, Mean Corpuscular Volume 106H, Mean Corpuscular Hemoglobin 32.7H, Mean Corpuscular Hemoglobin Concent 30.8L, Red Cell Distribution Width 15.4H, Platelet Count 151, Mean Platelet Volume 13.2H, Neutrophils (%) (Auto) 62.8, Lymphocytes (%) (Auto) 21.9, Monocytes (%) (Auto) 12.0H, Eosinophils (%) (Auto) 2.7, Basophils (%) (Auto) 0.6, Sodium Level 145, Potassium Level 4.4, Chloride Level 107, Carbon Dioxide Level 34H, Anion Gap 4L, Blood Urea Nitrogen 33H, Creatinine 0.5L, Estimat Glomerular Filtration Rate > 60, Glucose Level 135H, Calcium Level 8.8, Total Bilirubin 0.4, Aspartate Amino Transf (AST/SGOT) 21, Alanine Aminotransferase (ALT/SGPT) 43, Alkaline Phosphatase 89, Pro-B-Type Natriuretic Peptide 1023H, Total Protein 6.6, Albumin 2.7L, Globulin 3.9, Albumin/Globulin Ratio 0.7L Current Medications Medications (Trade) Dose Ordered Sig/Mayela Route PRN Reason Start Time Stop Time Status Last Admin Dose Admin Acetaminophen (Tylenol) 650 mg Q4H PRN GT back pain 05/06/20 15:15 06/05/20 15:14 05/30/20 00:39 Acetazolamide (Diamox) 250 mg TWICE A DAY GT 05/13/20 09:00 06/12/20 08:59 06/01/20 09:49 Ascorbic Acid (Vitamin C) 500 mg DAILY GT 05/07/20 09:00 06/06/20 08:59 06/01/20 09:50 Carvedilol (Coreg) 3.125 mg EVERY 12 HOURS GT 05/07/20 09:00 06/06/20 08:59 06/01/20 09:48 Clonidine HCl (Catapres Tab) 0.1 mg Q4H PRN ORAL SBP >160 05/08/20 22:15 08/06/20 22:14 Docusate Sodium (Colace) 200 mg BID GT 05/06/20 18:00 06/05/20 17:59 06/01/20 09:48 Heparin Sodium (Porcine) (Heparin 5000 units/ml) 5,000 units EVERY 12 HOURS SUBQ 05/08/20 09:00 06/22/20 08:59 05/26/20 20:28 Levetiracetam (Keppra) 250 mg DAILY GT 05/19/20 15:11 06/18/20 15:10 06/01/20 09:49 Multivitamins (Multivitamins W/ Minerals 15ml Liquid) 5 ml DAILY GT 05/07/20 09:00 06/06/20 08:59 06/01/20 09:50 Nitroglycerin (Nitro-Bid) 1 inch TID@0600,1200,1800 TOPIC 05/16/20 18:00 06/15/20 17:59 06/01/20 05:08 Potassium Chloride (K-Dur) 20 meq DAILY GT 05/13/20 09:00 08/11/20 08:59 06/01/20 09:49 Tamsulosin HCl (Flomax) 0.4 mg BEDTIME ORAL 05/06/20 21:00 06/05/20 20:59 05/31/20 21:00 Assessment/Plan Assessment/Plan ASSESSMENT: Pulmonary congestion, respiratory failure, hypoxemia dementia, G-tube, seizure disorder, congestive heart failure, COPD sepsis, and acute [place]. acute on chronic CO2 retention PLAN: oxygen and need for BIPAP reviewed; repeat ABG noted and improved. Breathing treatments and aspiration precautions. Monitor blood gases for change.keep negative. seizure medications. feeds and monitor residuals; DNR noted DVT prophylaxis significant CO2 retention without BIPAP- for prolonged periods needs chronic therapy remains guarded and difficult to place d/w primary impression, plan, and exam edited and reviewed in detail care discussed with Attila Yuan MD Jun 01, 2020 10:14
--- NOTE | 2020-06-01 11:39 | Infectious Diseases Prog Note ---
Assessment/Plan Assessment/Plan antibiotics : none A 1. Urinary tract infection with E. coli s/p rx 2. MRSA nasal colonization. 3. CHF. 4. COPD. 5. Seizures. 6. Dementia. 7. He is negative for COVID-19. P 1. continue off antibiotics Subjective ROS Limited/Unobtainable: Yes Allergies: Coded Allergies: PENICILLINS (Unverified Allergy, Unknown, 08/11/19) Objective Last 24 Hour Vital Signs Date Time Temp Pulse Resp B/P (MAP) Pulse Ox O2 Delivery O2 Flow Rate FiO2 06/01/20 09:48 82 134/59 06/01/20 08:00 98.4 82 20 134/59 (84) 100 06/01/20 07:27 98 Nasal Cannula 2.0 28 06/01/20 05:08 114/50 06/01/20 04:00 78 06/01/20 04:00 97.9 73 30 114/50 (71) 100 06/01/20 04:00 30 06/01/20 04:00 Bi-pap Bi-pap 06/01/20 03:20 75 28 100 30 06/01/20 00:00 98.1 71 27 117/50 (72) 98 06/01/20 00:00 Bi-pap Bi-pap 06/01/20 00:00 81 05/31/20 23:00 50 20 98 30 05/31/20 21:00 86 122/53 05/31/20 20:00 98.8 86 14 122/53 (76) 97 05/31/20 20:00 Bi-pap Bi-pap 05/31/20 20:00 2.0 05/31/20 20:00 88 05/31/20 19:50 95 Nasal Cannula 2.0 28 05/31/20 17:53 117/58 05/31/20 16:46 74 05/31/20 16:00 99.9 79 14 117/58 (77) 100 05/31/20 15:53 Bi-pap 05/31/20 15:52 2.0 05/31/20 12:58 101/51 05/31/20 12:00 30 05/31/20 12:00 98.0 70 14 101/51 (68) 100 05/31/20 12:00 Bi-pap 05/31/20 12:00 77 Height (Feet): 5 Height (Inches): 6.00 Weight (Pounds): 137 Respiratory/Chest: lungs clear Cardiovascular: normal rate, regular rhythm, no gallop/murmur Abdomen: soft, non tender, other - GT Extremities: no edema Laboratory Tests Test 06/01/20 04:10 White Blood Count 10.1 K/UL (4.8-10.8) Red Blood Count 4.04 M/UL (4.70-6.10) L Hemoglobin 13.2 G/DL (14.2-18.0) L Hematocrit 42.8 % (42.0-52.0) Mean Corpuscular Volume 106 FL (80-99) H Mean Corpuscular Hemoglobin 32.7 PG (27.0-31.0) H Mean Corpuscular Hemoglobin Concent 30.8 G/DL (32.0-36.0) L Red Cell Distribution Width 15.4 % (11.6-14.8) H Platelet Count 151 K/UL (150-450) Mean Platelet Volume 13.2 FL (6.5-10.1) H Neutrophils (%) (Auto) 62.8 % (45.0-75.0) Lymphocytes (%) (Auto) 21.9 % (20.0-45.0) Monocytes (%) (Auto) 12.0 % (1.0-10.0) H Eosinophils (%) (Auto) 2.7 % (0.0-3.0) Basophils (%) (Auto) 0.6 % (0.0-2.0) Sodium Level 145 MMOL/L (136-145) Potassium Level 4.4 MMOL/L (3.5-5.1) Chloride Level 107 MMOL/L (98-107) Carbon Dioxide Level 34 MMOL/L (21-32) H Anion Gap 4 mmol/L (5-15) L Blood Urea Nitrogen 33 mg/dL (7-18) H Creatinine 0.5 MG/DL (0.55-1.30) L Estimat Glomerular Filtration Rate > 60 mL/min (>60) Glucose Level 135 MG/DL (74-106) H Calcium Level 8.8 MG/DL (8.5-10.1) Total Bilirubin 0.4 MG/DL (0.2-1.0) Aspartate Amino Transf (AST/SGOT) 21 U/L (15-37) Alanine Aminotransferase (ALT/SGPT) 43 U/L (12-78) Alkaline Phosphatase 89 U/L (46-116) Pro-B-Type Natriuretic Peptide 1023 pg/mL (0-125) H Total Protein 6.6 G/DL (6.4-8.2) Albumin 2.7 G/DL (3.4-5.0) L Globulin 3.9 g/dL Albumin/Globulin Ratio 0.7 (1.0-2.7) L Current Medications Medications (Trade) Dose Ordered Sig/Mayela Route PRN Reason Start Time Stop Time Status Last Admin Dose Admin Acetaminophen (Tylenol) 650 mg Q4H PRN GT back pain 05/06/20 15:15 06/05/20 15:14 05/30/20 00:39 Acetazolamide (Diamox) 250 mg TWICE A DAY GT 05/13/20 09:00 06/12/20 08:59 06/01/20 09:49 Ascorbic Acid (Vitamin C) 500 mg DAILY GT 05/07/20 09:00 06/06/20 08:59 06/01/20 09:50 Carvedilol (Coreg) 3.125 mg EVERY 12 HOURS GT 05/07/20 09:00 06/06/20 08:59 06/01/20 09:48 Clonidine HCl (Catapres Tab) 0.1 mg Q4H PRN ORAL SBP >160 05/08/20 22:15 08/06/20 22:14 Docusate Sodium (Colace) 200 mg BID GT 05/06/20 18:00 06/05/20 17:59 06/01/20 09:48 Heparin Sodium (Porcine) (Heparin 5000 units/ml) 5,000 units EVERY 12 HOURS SUBQ 05/08/20 09:00 06/22/20 08:59 05/26/20 20:28 Levetiracetam (Keppra) 250 mg DAILY GT 05/19/20 15:11 06/18/20 15:10 06/01/20 09:49 Multivitamins (Multivitamins W/ Minerals 15ml Liquid) 5 ml DAILY GT 05/07/20 09:00 06/06/20 08:59 06/01/20 09:50 Nitroglycerin (Nitro-Bid) 1 inch TID@0600,1200,1800 TOPIC 11/6/20 18:00 06/15/20 17:59 06/01/20 05:08 Potassium Chloride (K-Dur) 20 meq DAILY GT 05/13/20 09:00 08/11/20 08:59 06/01/20 09:49 Tamsulosin HCl (Flomax) 0.4 mg BEDTIME ORAL 05/06/20 21:00 06/05/20 20:59 05/31/20 21:00 Josué Light MD Jun 01, 2020 11:39
[2020-06-01 12:00] VITALS: BP 124/49
[2020-06-01 16:00] VITALS: BP 123/59
--- NOTE | 2020-06-01 17:16 | Cardiology Progress Note ---
Subjective DATE OF SERVICE: Jun 01, 2020 Remains on bipap due to CO2 retention; but improved over past few days. (05/30/20) 7.36/50/111 CXR (06/01) left lung consolidation. Mild CHF BP remains well controlled. BNP decreased to 984. Monitor: sinus with rare atrial ectopy. Objective Last 24 Hour Vital Signs Date Time Temp Pulse Resp B/P (MAP) Pulse Ox O2 Delivery O2 Flow Rate FiO2 06/01/20 16:25 75 06/01/20 16:00 99.0 80 20 123/59 (80) 100 06/01/20 16:00 30 06/01/20 16:00 Bi-pap Bi-pap 06/01/20 15:11 57 14 99 30 06/01/20 12:35 124/49 06/01/20 12:30 87 06/01/20 12:00 98.8 65 20 124/49 (74) 100 06/01/20 12:00 30 06/01/20 12:00 Bi-pap Bi-pap 06/01/20 11:38 80 24 98 30 06/01/20 09:48 82 134/59 06/01/20 08:00 98.4 82 20 134/59 (84) 100 06/01/20 08:00 2.0 06/01/20 08:00 Nasal Cannula 2.0 Nasal Cannula 2.0 06/01/20 08:00 81 06/01/20 07:27 98 Nasal Cannula 2.0 28 06/01/20 05:08 114/50 06/01/20 04:00 78 06/01/20 04:00 97.9 73 30 114/50 (71) 100 06/01/20 04:00 30 06/01/20 04:00 Bi-pap Bi-pap 06/01/20 03:20 75 28 100 30 06/01/20 00:00 98.1 71 27 117/50 (72) 98 06/01/20 00:00 Bi-pap Bi-pap 06/01/20 00:00 81 05/31/20 23:00 50 20 98 30 05/31/20 21:00 86 122/53 05/31/20 20:00 98.8 86 14 122/53 (76) 97 05/31/20 20:00 Bi-pap Bi-pap 05/31/20 20:00 2.0 11/21/20 20:00 88 05/31/20 19:50 95 Nasal Cannula 2.0 28 05/31/20 17:53 117/58 ROS: unchanged from my evaluation of 05/06/20 HEENT: normal ENT inspection, other - bipap mask RHYTHM: NSR LUNGS: diminished breath sounds, left-sided rhonchi CARDIAC: normal rate, regular rhythm, normal S1 and S2 ABDOMEN: non tender, soft, G-Tube intact EXTREMITIES: non-pitting, No edema Laboratory Tests Test 06/01/20 04:10 White Blood Count 10.1 K/UL (4.8-10.8) Red Blood Count 4.04 M/UL (4.70-6.10) L Hemoglobin 13.2 G/DL (14.2-18.0) L Hematocrit 42.8 % (42.0-52.0) Mean Corpuscular Volume 106 FL (80-99) H Mean Corpuscular Hemoglobin 32.7 PG (27.0-31.0) H Mean Corpuscular Hemoglobin Concent 30.8 G/DL (32.0-36.0) L Red Cell Distribution Width 15.4 % (11.6-14.8) H Platelet Count 151 K/UL (150-450) Mean Platelet Volume 13.2 FL (6.5-10.1) H Neutrophils (%) (Auto) 62.8 % (45.0-75.0) Lymphocytes (%) (Auto) 21.9 % (20.0-45.0) Monocytes (%) (Auto) 12.0 % (1.0-10.0) H Eosinophils (%) (Auto) 2.7 % (0.0-3.0) Basophils (%) (Auto) 0.6 % (0.0-2.0) Sodium Level 145 MMOL/L (136-145) Potassium Level 4.4 MMOL/L (3.5-5.1) Chloride Level 107 MMOL/L (98-107) Carbon Dioxide Level 34 MMOL/L (21-32) H Anion Gap 4 mmol/L (5-15) L Blood Urea Nitrogen 33 mg/dL (7-18) H Creatinine 0.5 MG/DL (0.55-1.30) L Estimat Glomerular Filtration Rate > 60 mL/min (>60) Glucose Level 135 MG/DL (74-106) H Calcium Level 8.8 MG/DL (8.5-10.1) Total Bilirubin 0.4 MG/DL (0.2-1.0) Aspartate Amino Transf (AST/SGOT) 21 U/L (15-37) Alanine Aminotransferase (ALT/SGPT) 43 U/L (12-78) Alkaline Phosphatase 89 U/L (46-116) Pro-B-Type Natriuretic Peptide 1023 pg/mL (0-125) H Total Protein 6.6 G/DL (6.4-8.2) Albumin 2.7 G/DL (3.4-5.0) L Globulin 3.9 g/dL Albumin/Globulin Ratio 0.7 (1.0-2.7) L Assessment/Plan Assessment/Plan E.coli UTI Sepsis Metabolic and toxic encephalopathies Cerebrovascular disease with dementia Acute myocardial ischemia and possible NSTEMI Dehydration/hypernatremia resolved Hypertension/HHD Ac/chronic respiratory acidosis recovering Respiratory failure improving, but still requiring bipap support Ac diastolic CHF; BNP relatively unchanged. Metabolic acidosis Pleural effusions Ac/chr renal failure with azotemia Continue anti-anginal regimen; titrate meds for BP control. Maintain nitrates. Antimicrobment. Monitor acid-base parameters; reassess acetazolamide therapy based on bicarb levels. Diuresis based on clinical parameters; monitor volume status and trend BNP. Bipap support-taper to nighttime only. Real Magana MD Jun 01, 2020 17:16
--- NOTE | 2020-06-01 17:36 | Surgery Progress Note ---
Surgery Progress Note Subjective Symptoms: tolerating diet Additional Comments leukocytosis resolved no n/v comfortable Objective Last 24 Hour Vital Signs Date Time Temp Pulse Resp B/P (MAP) Pulse Ox O2 Delivery O2 Flow Rate FiO2 06/01/20 16:25 75 06/01/20 16:00 99.0 80 20 123/59 (80) 100 06/01/20 16:00 30 06/01/20 16:00 Bi-pap Bi-pap 06/01/20 15:11 57 14 99 30 06/01/20 12:35 124/49 06/01/20 12:30 87 06/01/20 12:00 98.8 65 20 124/49 (74) 100 06/01/20 12:00 30 06/01/20 12:00 Bi-pap Bi-pap 06/01/20 11:38 80 24 98 30 06/01/20 09:48 82 134/59 06/01/20 08:00 98.4 82 20 134/59 (84) 100 06/01/20 08:00 2.0 06/01/20 08:00 Nasal Cannula 2.0 Nasal Cannula 2.0 06/01/20 08:00 81 06/01/20 07:27 98 Nasal Cannula 2.0 28 06/01/20 05:08 114/50 06/01/20 04:00 78 06/01/20 04:00 97.9 73 30 114/50 (71) 100 06/01/20 04:00 30 06/01/20 04:00 Bi-pap Bi-pap 06/01/20 03:20 75 28 100 30 06/01/20 00:00 98.1 71 27 117/50 (72) 98 06/01/20 00:00 Bi-pap Bi-pap 06/01/20 00:00 81 05/31/20 23:00 50 20 98 30 05/31/20 21:00 86 122/53 05/31/20 20:00 98.8 86 14 122/53 (76) 97 05/31/20 20:00 Bi-pap Bi-pap 05/31/20 20:00 2.0 05/31/20 20:00 88 05/31/20 19:50 95 Nasal Cannula 2.0 28 05/31/20 17:53 117/58 I&O Intake and Output 05/31/20 06/01/20 19:00 07:00 Intake Total 440 ml Output Total 550 ml Balance 440 ml -550 ml Intake Free Water 120 ml Tube Feeding 320 ml Output Urine Total 550 ml # Bowel Movements 1 3 Dressing: saturated Cardiovascular: RSR Respiratory: decreased breath sounds Abdomen: non-tender, present bowel sounds Extremities: no edema, no tenderness, no cyanosis Laboratory Tests Test 06/01/20 04:10 White Blood Count 10.1 K/UL (4.8-10.8) Red Blood Count 4.04 M/UL (4.70-6.10) L Hemoglobin 13.2 G/DL (14.2-18.0) L Hematocrit 42.8 % (42.0-52.0) Mean Corpuscular Volume 106 FL (80-99) H Mean Corpuscular Hemoglobin 32.7 PG (27.0-31.0) H Mean Corpuscular Hemoglobin Concent 30.8 G/DL (32.0-36.0) L Red Cell Distribution Width 15.4 % (11.6-14.8) H Platelet Count 151 K/UL (150-450) Mean Platelet Volume 13.2 FL (6.5-10.1) H Neutrophils (%) (Auto) 62.8 % (45.0-75.0) Lymphocytes (%) (Auto) 21.9 % (20.0-45.0) Monocytes (%) (Auto) 12.0 % (1.0-10.0) H Eosinophils (%) (Auto) 2.7 % (0.0-3.0) Basophils (%) (Auto) 0.6 % (0.0-2.0) Sodium Level 145 MMOL/L (136-145) Potassium Level 4.4 MMOL/L (3.5-5.1) Chloride Level 107 MMOL/L (98-107) Carbon Dioxide Level 34 MMOL/L (21-32) H Anion Gap 4 mmol/L (5-15) L Blood Urea Nitrogen 33 mg/dL (7-18) H Creatinine 0.5 MG/DL (0.55-1.30) L Estimat Glomerular Filtration Rate > 60 mL/min (>60) Glucose Level 135 MG/DL (74-106) H Calcium Level 8.8 MG/DL (8.5-10.1) Total Bilirubin 0.4 MG/DL (0.2-1.0) Aspartate Amino Transf (AST/SGOT) 21 U/L (15-37) Alanine Aminotransferase (ALT/SGPT) 43 U/L (12-78) Alkaline Phosphatase 89 U/L (46-116) Pro-B-Type Natriuretic Peptide 1023 pg/mL (0-125) H Total Protein 6.6 G/DL (6.4-8.2) Albumin 2.7 G/DL (3.4-5.0) L Globulin 3.9 g/dL Albumin/Globulin Ratio 0.7 (1.0-2.7) L Plan Problems: (1) Deep tissue injury Assessment & Plan: Patient identified to have bilateral heel concerns for potential developing DTI. Soft boggy no fluid collection no acute injury at this time. Patient identified to have sacral erythema and skin changes with concerns for developing deep tissue injury as well. No open areas. No fluid collections no fluctuance no drainage. On the scrotum patient is identified to have edema erythema and some abrasion along with incontinence associated dermatitis in the area. Patient identified to have abrasion to the nasal brim secondary to a facemask placement. Patient is chronically ill elderly and malnourished. Wound evaluated and care plan initiated. Treatment plan Apply skin protectant to the nasal bridge followed by foam dressing prior to facemask placement. Patient currently requires oxygen supplementation and therefore important to ensure receiving such along with protection of underlying epidermis. Apply OPTi foam to heels change every 3 days offload pressure with pillows Apply OPTi foam to sacral area monitor for incontinence change accordingly every 3 days and as needed saturation. Soft towel under scrotum. Continue with respiratory supportive care Turn every 2 hours Offload pressure with pillows Continue tube feeds nutritional optimization we will follow with recommendations thank you for let me participate patient's care (2) Dementia with behavioral problem (3) UTI (urinary tract infection) (4) Elevated troponin I level (5) AMS (altered mental status) (6) Dysphagia Assessment & Plan: DAILY ESTIMATED NEEDS: Needs based on Pulmonary, cardiac, 62kg 25-30 kcals/kg 6660-3909 total kcals 1-1.5 g protein/kg 62-93 g total protein 25-30 mL/kg 0329-9202 total fluid mLs NUTRITION DIAGNOSIS: Swallowing difficulty r/t dysphagia as evidenced by pt is PEG dep, currently on continuous BIPAP. CURRENT TF: Glucerna 1.5 @ 40ml/hr ENTERAL NUTRITION RECOMMENDATIONS: Glucerna 1.5 goal of 45ml/hr x 24 hrs to provide 1080ml, 1620 kcal, 89g pro, 820ml free water * Maintain carb controlled TF of Glucerna 1.5 while CO2 critically elevated * As medically appropriate, increase goal rate to 45ml/hr x 24 hrs to better meet nutritional needs. * HOB over 30 degrees/ water flush per MD ADDITIONAL RECOMMENDATIONS: 1) Monitor BIPAP usage, safety of GT feeds -> continuous BIPAP at this time 2) Lytes daily, replete as needed Current TF Glucerna 1.5 @goal of 40ml/hr provides 2419mg K/day 3) Calibrated bed scale wts (Bed scale shows uptrend: 65kg-> 71kg) 4) Rec HgA1C for eval of BG control 5) F/up w/ WC eval: Continue MVI and Vit C (7) Seizure (8) NSTEMI (non-ST elevated myocardial infarction) (9) Respiratory insufficiency Assessment & Plan: constant required bipap ? trach dnr/dni discussed with pcp and pulm Duplex Doppler interrogation of the veins in both upper extremity is performed from the internal jugular veins to the radial and ulnar veins. No thrombus is identified. Basilic and cephalic veins are also patent bilaterally. There is mild subcutaneous edema of the right upper extremity. IMPRESSION: No evidence of deep venous thrombosis involving the upper extremities. Benitez Mayorag Jun 01, 2020 17:36
[2020-06-01 20:00] VITALS: BP 123/61
[2020-06-01] MEDS: Tamsulosin 0.4mg cap ORAL SCH (20:06)
[2020-06-02] VITALS: BP 132/77
[2020-06-02 04:00] VITALS: BP 117/80
[2020-06-02] MEDS: Nitroglycerin 2% oint pkt TOPIC SCH ×3 (05:10→17:54)
[2020-06-02 08:00] VITALS: BP 134/60
[2020-06-02] MEDS: Ascorbic Acid 500mg tab GT SCH (08:51)
[2020-06-02] MEDS: levETIRAcetam 500mg/5ml Liquid GT SCH (08:51)
[2020-06-02] MEDS: Multivitamins W/Minerals 15 ML UDC GT SCH (08:51)
[2020-06-02] MEDS: Heparin 5000 units/ml inj SUBQ SCH ×2 (08:52→21:00)
[2020-06-02] MEDS: Docusate 100mg/10ml Liq GT SCH ×2 (08:52→17:53)
[2020-06-02 12:00] VITALS: BP 112/52
--- NOTE | 2020-06-02 12:05 | Pulmonology Progress Note ---
Subjective ROS Limited/Unobtainable: Yes Constitutional: Denies: fever Allergies: Coded Allergies: PENICILLINS (Unverified Allergy, Unknown, 08/11/19) All Systems: reviewed and negative except above Subjective care noted back on BIPAP noted co2 retention imaging noted Objective Last 24 Hour Vital Signs Date Time Temp Pulse Resp B/P (MAP) Pulse Ox O2 Delivery O2 Flow Rate FiO2 06/02/20 08:51 90 128/62 06/02/20 08:00 98.1 60 20 134/60 (84) 100 06/02/20 08:00 Bi-pap Bi-pap 06/02/20 08:00 30 06/02/20 07:39 83 06/02/20 07:25 100 Bi-Pap 30 06/02/20 07:25 50 21 100 30 06/02/20 05:10 127/70 06/02/20 04:00 Bi-pap Bi-pap 06/02/20 04:00 98.1 73 20 117/80 (92) 100 06/02/20 03:58 30 06/02/20 03:28 79 06/02/20 03:27 40 21 100 30 06/02/20 00:10 84 06/02/20 00:00 97.9 77 19 132/77 (95) 100 06/02/20 00:00 30 06/02/20 00:00 Bi-pap Bi-pap 06/01/20 22:30 47 15 99 30 06/01/20 20:06 73 115/61 06/01/20 20:00 Bi-pap Bi-pap 06/01/20 20:00 30 06/01/20 20:00 98.2 73 20 123/61 (81) 100 06/01/20 19:55 100 Bi-Pap 30 06/01/20 19:41 78 06/01/20 18:32 41 16 100 30 06/01/20 18:19 123/59 06/01/20 16:25 75 06/01/20 16:00 99.0 80 20 123/59 (80) 100 06/01/20 16:00 30 06/01/20 16:00 Bi-pap Bi-pap 06/01/20 15:11 57 14 99 30 06/01/20 12:35 124/49 06/01/20 12:30 87 Intake and Output 06/01/20 06/02/20 19:00 07:00 Intake Total 705 ml 630 ml Output Total 600 ml 100 ml Balance 105 ml 530 ml Intake Free Water 225 ml 150 ml Tube Feeding 480 ml 480 ml Output Urine Total 600 ml 100 ml # Voids 5 # Bowel Movements 2 Objective WDWN NAD reduced breath sounds bilaterally without rhonchi [id number] without MRG NABS nontender no CC mild edema nonfocal off BIPAP reduced LOC Current Medications Medications (Trade) Dose Ordered Sig/Mayela Route PRN Reason Start Time Stop Time Status Last Admin Dose Admin Acetaminophen (Tylenol) 650 mg Q4H PRN GT back pain 05/06/20 15:15 06/05/20 15:14 05/30/20 00:39 Acetazolamide (Diamox) 250 mg TWICE A DAY GT 05/13/20 09:00 06/12/20 08:59 06/02/20 08:51 Ascorbic Acid (Vitamin C) 500 mg DAILY GT 05/07/20 09:00 06/06/20 08:59 06/02/20 08:51 Carvedilol (Coreg) 3.125 mg EVERY 12 HOURS GT 05/07/20 09:00 06/06/20 08:59 06/02/20 08:51 Clonidine HCl (Catapres Tab) 0.1 mg Q4H PRN ORAL SBP >160 05/08/20 22:15 08/06/20 22:14 Docusate Sodium (Colace) 200 mg BID GT 05/06/20 18:00 06/05/20 17:59 06/02/20 08:52 Heparin Sodium (Porcine) (Heparin 5000 units/ml) 5,000 units EVERY 12 HOURS SUBQ 05/08/20 09:00 06/22/20 08:59 05/26/20 20:28 Levetiracetam (Keppra) 250 mg DAILY GT 05/19/20 15:11 06/18/20 15:10 06/02/20 08:51 Multivitamins (Multivitamins W/ Minerals 15ml Liquid) 5 ml DAILY GT 05/07/20 09:00 06/06/20 08:59 06/02/20 08:51 Nitroglycerin (Nitro-Bid) 1 inch TID@0600,1200,1800 TOPIC 05/16/20 18:00 12/6/20 17:59 06/02/20 05:10 Potassium Chloride (K-Dur) 20 meq DAILY GT 05/13/20 09:00 08/11/20 08:59 06/02/20 08:51 Tamsulosin HCl (Flomax) 0.4 mg BEDTIME ORAL 05/06/20 21:00 06/05/20 20:59 06/01/20 20:06 Assessment/Plan Assessment/Plan ASSESSMENT: Pulmonary congestion, respiratory failure, hypoxemia dementia, G-tube, seizure disorder, congestive heart failure, COPD sepsis, and acute MO. acute on chronic CO2 retention PLAN: oxygen and need for BIPAP reviewed; repeat ABG as needed. Breathing treatments and aspiration precautions. Monitor blood gases for change.keep negative. seizure medications. feeds and monitor residuals; DNR noted DVT prophylaxis significant CO2 retention without BIPAP- for prolonged periods needs chronic therapy remains guarded and difficult to place d/w primary impression, plan, and exam edited and reviewed in detail care discussed with Attila Yuan MD Jun 02, 2020 12:05
--- NOTE | 2020-06-02 12:16 | Infectious Diseases Prog Note ---
Assessment/Plan Assessment/Plan antibiotics : none A 1. Urinary tract infection with E. coli s/p rx 2. MRSA nasal colonization. 3. CHF. 4. COPD. 5. Seizures. 6. Dementia. 7. He is negative for COVID-19. 8. pneumonia 9. respiratory failure P 1. start cefepime 2. sputum culture 3. will follow up cultures Subjective ROS Limited/Unobtainable: Yes Allergies: Coded Allergies: PENICILLINS (Unverified Allergy, Unknown, 08/11/19) Objective Last 24 Hour Vital Signs Date Time Temp Pulse Resp B/P (MAP) Pulse Ox O2 Delivery O2 Flow Rate FiO2 06/02/20 08:51 90 128/62 06/02/20 08:00 98.1 60 20 134/60 (84) 100 06/02/20 08:00 Bi-pap Bi-pap 06/02/20 08:00 30 06/02/20 07:39 83 06/02/20 07:25 100 Bi-Pap 30 06/02/20 07:25 50 21 100 30 06/02/20 05:10 127/70 06/02/20 04:00 Bi-pap Bi-pap 06/02/20 04:00 98.1 73 20 117/80 (92) 100 06/02/20 03:58 30 06/02/20 03:28 79 06/02/20 03:27 40 21 100 30 06/02/20 00:10 84 06/02/20 00:00 97.9 77 19 132/77 (95) 100 06/02/20 00:00 30 06/02/20 00:00 Bi-pap Bi-pap 06/01/20 22:30 47 15 99 30 06/01/20 20:06 73 115/61 06/01/20 20:00 Bi-pap Bi-pap 06/01/20 20:00 30 06/01/20 20:00 98.2 73 20 123/61 (81) 100 06/01/20 19:55 100 Bi-Pap 30 06/01/20 19:41 78 06/01/20 18:32 41 16 100 30 06/01/20 18:19 123/59 06/01/20 16:25 75 06/01/20 16:00 99.0 80 20 123/59 (80) 100 06/01/20 16:00 30 06/01/20 16:00 Bi-pap Bi-pap 06/01/20 15:11 57 14 99 30 06/01/20 12:35 124/49 06/01/20 12:30 87 Height (Feet): 5 Height (Inches): 6.00 Weight (Pounds): 137 HEENT: other - on bipap Respiratory/Chest: lungs clear Cardiovascular: normal rate, regular rhythm, no gallop/murmur Abdomen: soft, non tender, other - GT Extremities: no edema Current Medications Medications (Trade) Dose Ordered Sig/Mayela Route PRN Reason Start Time Stop Time Status Last Admin Dose Admin Acetaminophen (Tylenol) 650 mg Q4H PRN GT back pain 05/06/20 15:15 06/05/20 15:14 05/30/20 00:39 Acetazolamide (Diamox) 250 mg TWICE A DAY GT 05/13/20 09:00 06/12/20 08:59 06/02/20 08:51 Ascorbic Acid (Vitamin C) 500 mg DAILY GT 05/07/20 09:00 06/06/20 08:59 06/02/20 08:51 Carvedilol (Coreg) 3.125 mg EVERY 12 HOURS GT 05/07/20 09:00 06/06/20 08:59 06/02/20 08:51 Clonidine HCl (Catapres Tab) 0.1 mg Q4H PRN ORAL SBP >160 05/08/20 22:15 08/06/20 22:14 Docusate Sodium (Colace) 200 mg BID GT 05/06/20 18:00 06/05/20 17:59 06/02/20 08:52 Heparin Sodium (Porcine) (Heparin 5000 units/ml) 5,000 units EVERY 12 HOURS SUBQ 05/08/20 09:00 06/22/20 08:59 05/26/20 20:28 Levetiracetam (Keppra) 250 mg DAILY GT 05/19/20 15:11 06/18/20 15:10 06/02/20 08:51 Multivitamins (Multivitamins W/ Minerals 15ml Liquid) 5 ml DAILY GT 05/07/20 09:00 06/06/20 08:59 06/02/20 08:51 Nitroglycerin (Nitro-Bid) 1 inch TID@0600,1200,1800 TOPIC 05/16/20 18:00 06/15/20 17:59 06/02/20 05:10 Potassium Chloride (K-Dur) 20 meq DAILY GT 05/13/20 09:00 08/11/20 08:59 06/02/20 08:51 Tamsulosin HCl (Flomax) 0.4 mg BEDTIME ORAL 05/06/20 21:00 06/05/20 20:59 06/01/20 20:06 Josué Light MD Jun 02, 2020 12:16
--- NOTE | 2020-06-02 13:53 | Surgery Progress Note ---
Surgery Progress Note Subjective Additional Comments no acute events comfortable stable Objective Last 24 Hour Vital Signs Date Time Temp Pulse Resp B/P (MAP) Pulse Ox O2 Delivery O2 Flow Rate FiO2 06/02/20 12:24 110/52 06/02/20 12:00 80 06/02/20 12:00 30 06/02/20 12:00 Bi-pap Bi-pap 06/02/20 12:00 98.2 75 20 112/52 (72) 100 06/02/20 11:01 48 21 100 30 06/02/20 08:51 90 128/62 06/02/20 08:00 98.1 60 20 134/60 (84) 100 06/02/20 08:00 Bi-pap Bi-pap 06/02/20 08:00 30 06/02/20 07:39 83 06/02/20 07:25 100 Bi-Pap 30 06/02/20 07:25 50 21 100 30 06/02/20 05:10 127/70 06/02/20 04:00 Bi-pap Bi-pap 06/02/20 04:00 98.1 73 20 117/80 (92) 100 06/02/20 03:58 30 06/02/20 03:28 79 06/02/20 03:27 40 21 100 30 06/02/20 00:10 84 06/02/20 00:00 97.9 77 19 132/77 (95) 100 06/02/20 00:00 30 06/02/20 00:00 Bi-pap Bi-pap 06/01/20 22:30 47 15 99 30 06/01/20 20:06 73 115/61 06/01/20 20:00 Bi-pap Bi-pap 06/01/20 20:00 30 06/01/20 20:00 98.2 73 20 123/61 (81) 100 06/01/20 19:55 100 Bi-Pap 30 06/01/20 19:41 78 06/01/20 18:32 41 16 100 30 06/01/20 18:19 123/59 06/01/20 16:25 75 06/01/20 16:00 99.0 80 20 123/59 (80) 100 06/01/20 16:00 30 06/01/20 16:00 Bi-pap Bi-pap 06/01/20 15:11 57 14 99 30 I&O Intake and Output 06/01/20 06/02/20 19:00 07:00 Intake Total 705 ml 630 ml Output Total 600 ml 100 ml Balance 105 ml 530 ml Intake Free Water 225 ml 150 ml Tube Feeding 480 ml 480 ml Output Urine Total 600 ml 100 ml # Voids 5 # Bowel Movements 2 Dressing: saturated Cardiovascular: RSR Respiratory: decreased breath sounds Abdomen: soft, non-tender, present bowel sounds, other, non-distended Extremities: edema, no tenderness, no cyanosis Plan Problems: (1) Deep tissue injury Assessment & Plan: Patient identified to have bilateral heel concerns for potential developing DTI. Soft boggy no fluid collection no acute injury at this time. Patient identified to have sacral erythema and skin changes with concerns for developing deep tissue injury as well. No open areas. No fluid collections no fluctuance no drainage. On the scrotum patient is identified to have edema erythema and some abrasion along with incontinence associated dermatitis in the area. Patient identified to have abrasion to the nasal brim secondary to a facemask placement. Patient is chronically ill elderly and malnourished. Wound evaluated and care plan initiated. Treatment plan Apply skin protectant to the nasal bridge followed by foam dressing prior to facemask placement. Patient currently requires oxygen supplementation and therefore important to ensure receiving such along with protection of underlying epidermis. Apply OPTi foam to heels change every 3 days offload pressure with pillows Apply OPTi foam to sacral area monitor for incontinence change accordingly every 3 days and as needed saturation. Soft towel under scrotum. Continue with respiratory supportive care Turn every 2 hours Offload pressure with pillows Continue tube feeds nutritional optimization we will follow with recommendations thank you for let me participate patient's care (2) Dementia with behavioral problem (3) UTI (urinary tract infection) (4) Elevated troponin I level (5) AMS (altered mental status) (6) Dysphagia Assessment & Plan: DAILY ESTIMATED NEEDS: Needs based on Pulmonary, cardiac, 62kg 25-30 kcals/kg 1379-4934 total kcals 1-1.5 g protein/kg 62-93 g total protein 25-30 mL/kg 7079-3532 total fluid mLs NUTRITION DIAGNOSIS: Swallowing difficulty r/t dysphagia as evidenced by pt is PEG dep, currently on continuous BIPAP. CURRENT TF: Glucerna 1.5 @ 40ml/hr ENTERAL NUTRITION RECOMMENDATIONS: Glucerna 1.5 goal of 45ml/hr x 24 hrs to provide 1080ml, 1620 kcal, 89g pro, 820ml free water * Maintain carb controlled TF of Glucerna 1.5 while CO2 critically elevated * As medically appropriate, increase goal rate to 45ml/hr x 24 hrs to better meet nutritional needs. * HOB over 30 degrees/ water flush per MD ADDITIONAL RECOMMENDATIONS: 1) Monitor BIPAP usage, safety of GT feeds -> continuous BIPAP at this time 2) Lytes daily, replete as needed Current TF Glucerna 1.5 @goal of 40ml/hr provides 2419mg K/day 3) Calibrated bed scale wts (Bed scale shows uptrend: 65kg-> 71kg) 4) Rec HgA1C for eval of BG control 5) F/up w/ WC eval: Continue MVI and Vit C (7) Seizure (8) NSTEMI (non-ST elevated myocardial infarction) (9) Respiratory insufficiency Assessment & Plan: constant required bipap ? trach dnr/dni discussed with pcp and pulm Duplex Doppler interrogation of the veins in both upper extremity is performed from the internal jugular veins to the radial and ulnar veins. No thrombus is ident ified. Basilic and cephalic veins are also patent bilaterally. There is mild subcutaneous edema of the right upper extremity. IMPRESSION: No evidence of deep venous thrombosis involving the upper extremities. Benitez Mayorga Jun 02, 2020 13:53
[2020-06-02 16:00] VITALS: BP 116/67
[2020-06-02] MEDS: Cefepime HCl 2 GM in D5W 55 ML IVPB SCH (16:10)
--- NOTE | 2020-06-02 16:24 | General Progress Note ---
Subjective ROS Limited/Unobtainable: Yes Constitutional: Reports: malaise, weakness HEENT: Reports: no symptoms Cardiovascular: Reports: no symptoms Respiratory: Reports: cough, shortness of breath, SOB at rest, sputum Gastrointestinal/Abdominal: Reports: difficulty swallowing Genitourinary: Reports: no symptoms Neurologic/Psychiatric: Reports: pre-existing deficit, seizure Endocrine: Reports: no symptoms Hematologic/Lymphatic: Reports: anemia Allergies: Coded Allergies: PENICILLINS (Unverified Allergy, Unknown, 08/11/19) All Systems: reviewed and negative except above Subjective Remains on BiPAP at night. off during the day. More alert and responsive. tolerating G-tube feeds. no fevers. alert. does not follow commands. remains on iv abx. Objective Last 24 Hour Vital Signs Date Time Temp Pulse Resp B/P (MAP) Pulse Ox O2 Delivery O2 Flow Rate FiO2 06/02/20 12:24 110/52 06/02/20 12:00 80 06/02/20 12:00 30 06/02/20 12:00 Bi-pap Bi-pap 06/02/20 12:00 98.2 75 20 112/52 (72) 100 06/02/20 11:01 48 21 100 30 06/02/20 08:51 90 128/62 06/02/20 08:00 98.1 60 20 134/60 (84) 100 06/02/20 08:00 Bi-pap Bi-pap 06/02/20 08:00 30 06/02/20 07:39 83 06/02/20 07:25 100 Bi-Pap 30 06/02/20 07:25 50 21 100 30 06/02/20 05:10 127/70 06/02/20 04:00 Bi-pap Bi-pap 06/02/20 04:00 98.1 73 20 117/80 (92) 100 06/02/20 03:58 30 06/02/20 03:28 79 06/02/20 03:27 40 21 100 30 06/02/20 00:10 84 06/02/20 00:00 97.9 77 19 132/77 (95) 100 06/02/20 00:00 30 06/02/20 00:00 Bi-pap Bi-pap 06/01/20 22:30 47 15 99 30 06/01/20 20:06 73 115/61 06/01/20 20:00 Bi-pap Bi-pap 06/01/20 20:00 30 06/01/20 20:00 98.2 73 20 123/61 (81) 100 06/01/20 19:55 100 Bi-Pap 30 06/01/20 19:41 78 06/01/20 18:32 41 16 100 30 06/01/20 18:19 123/59 06/01/20 16:25 75 Intake and Output 06/01/20 06/02/20 19:00 07:00 Intake Total 705 ml 630 ml Output Total 600 ml 100 ml Balance 105 ml 530 ml Intake Free Water 225 ml 150 ml Tube Feeding 480 ml 480 ml Output Urine Total 600 ml 100 ml # Voids 5 # Bowel Movements 2 Height (Feet): 5 Height (Inches): 6.00 Weight (Pounds): 137 Objective General Appearance: WD/WN, alert, confused EENT: normal ENT inspection Neck: normal alignment Cardiovascular: normal rate Respiratory/Chest: chest wall non-tender, lungs clear, normal breath sounds Abdomen: normal bowel sounds, non tender, soft, no organomegaly Edema: no edema noted Arm (L), no edema noted Arm (R) Neurologic: alert, disoriented Assessment/Plan Problem List: (1) Seizure ICD Codes: R56.9 - Unspecified convulsions SNOMED: 78426901 (2) Dysphagia ICD Codes: R13.10 - Dysphagia, unspecified SNOMED: 95748159, 808431465 (3) UTI (urinary tract infection) ICD Codes: N39.0 - Urinary tract infection, site not specified SNOMED: 45058884 (4) Elevated troponin I level ICD Codes: R77.8 - Other specified abnormalities of plasma proteins SNOMED: 358633439 (5) AMS (altered mental status) ICD Codes: R41.82 - Altered mental status, unspecified SNOMED: 286658458 (6) NSTEMI (non-ST elevated myocardial infarction) ICD Codes: I21.4 - Non-ST elevation (NSTEMI) myocardial infarction SNOMED: 18208397 Status: stable Assessment/Plan: bipap qhs nd prn wean o2 during the day monitor abg- improving tube feeds monitor residuals monitor for vomiting sz rx cxr reviewed- stable monitor labs anxiolytics as needed o2 resp rx dvt/stress ulcer prophylaxis. ivf as needed snf able to accept pt on noctural bipap but not continuous Repeat Covid swab Anticipate discharge when pulm status stable. repeat covid needed for placement. Jorge Kee MD Jun 02, 2020 16:24
--- NOTE | 2020-06-02 19:06 | Cardiology Progress Note ---
Subjective DATE OF SERVICE: Jun 02, 2020 Remains on bipap due to CO2 retention; but continues slow progress. (05/30/20) 7.36/50/111 CXR (06/01) left lung consolidation. Mild CHF BP remains well controlled. BNP decreased to unchanged at 1000 range yesterday. Monitor: sinus with rare atrial ectopy. Objective Last 24 Hour Vital Signs Date Time Temp Pulse Resp B/P (MAP) Pulse Ox O2 Delivery O2 Flow Rate FiO2 06/02/20 17:54 120/57 06/02/20 16:00 30 06/02/20 16:00 Bi-pap Bi-pap 06/02/20 16:00 98.2 81 20 116/67 (83) 100 06/02/20 15:13 90 06/02/20 12:24 110/52 06/02/20 12:00 80 06/02/20 12:00 30 06/02/20 12:00 Bi-pap Bi-pap 06/02/20 12:00 98.2 75 20 112/52 (72) 100 06/02/20 11:01 48 21 100 30 06/02/20 08:51 90 128/62 06/02/20 08:00 98.1 60 20 134/60 (84) 100 06/02/20 08:00 Bi-pap Bi-pap 06/02/20 08:00 30 06/02/20 07:39 83 06/02/20 07:25 100 Bi-Pap 30 06/02/20 07:25 50 21 100 30 06/02/20 05:10 127/70 06/02/20 04:00 Bi-pap Bi-pap 06/02/20 04:00 98.1 73 20 117/80 (92) 100 06/02/20 03:58 30 06/02/20 03:28 79 06/02/20 03:27 40 21 100 30 06/02/20 00:10 84 06/02/20 00:00 97.9 77 19 132/77 (95) 100 06/02/20 00:00 30 06/02/20 00:00 Bi-pap Bi-pap 06/01/20 22:30 47 15 99 30 06/01/20 20:06 73 115/61 06/01/20 20:00 Bi-pap Bi-pap 06/01/20 20:00 30 06/01/20 20:00 98.2 73 20 123/61 (81) 100 06/01/20 19:55 100 Bi-Pap 30 06/01/20 19:41 78 ROS: unchanged from my evaluation of 05/06/20 HEENT: normal ENT inspection, other - bipap mask RHYTHM: NSR LUNGS: diminished breath sounds, left-sided rhonchi CARDIAC: normal rate, regular rhythm, normal S1 and S2 ABDOMEN: non tender, soft, G-Tube intact EXTREMITIES: non-pitting, No edema Assessment/Plan Assessment/Plan E.coli UTI Sepsis Metabolic and toxic encephalopathies Cerebrovascular disease with dementia Acute myocardial ischemia and possible NSTEMI Dehydration/hypernatremia resolved Hypertension/HHD Ac/chronic respiratory acidosis recovering Respiratory failure improving, but still requiring bipap support Ac diastolic CHF; BNP relatively unchanged. Metabolic acidosis Pleural effusions Ac/chr renal failure with azotemia Continue anti-anginal regimen; titrate meds for BP control. Maintain nitrates. Antimicrobial therapy per ID Monitor acid-base parameters; reassess acetazolamide therapy based on bicarb levels. Diuresis ordered, based on clinical parameters; monitor volume status and trend BNP. Bipap support-taper to nighttime only. Real Magana MD Jun 02, 2020 19:06
[2020-06-02 20:00] VITALS: BP 110/51
[2020-06-02] MEDS: Tamsulosin 0.4mg cap ORAL SCH (21:39)
[2020-06-03] VITALS (7 sets, daily range): BP systolic 113–139; BP diastolic 57–82
[2020-06-03] MEDS: Nitroglycerin 2% oint pkt TOPIC SCH ×3 (05:31→17:02)
[2020-06-03 05:43] LABS: BASOPHILS % (AUTO) 0.7 % (0.0-2.0); EOSINOPHILS % (AUTO) 1.6 % (0.0-3.0); HEMATOCRIT 40.6 % (42.0-52.0); HEMOGLOBIN 12.5 G/DL (14.2-18.0); LYMPHOCYTES % (AUTO) 16.4 % (20.0-45.0); MEAN CORPUSCULAR VOLUME 104 FL (80-99); MONOCYTES % (AUTO) 9.8 % (1.0-10.0); NEUTROPHILS % (AUTO) 71.6 % (45.0-75.0); PLATELET COUNT 178 K/UL (150-450); RED BLOOD COUNT 3.89 M/UL (4.70-6.10); RED CELL DISTRIBUTION WIDTH 14.7 % (11.6-14.8); WHITE BLOOD COUNT 10.3 K/UL (4.8-10.8)
[2020-06-03 06:22] LABS: ALANINE AMINOTRANSFERASE 39 U/L (12-78); ALBUMIN 2.8 G/DL (3.4-5.0); ALBUMIN/GLOBULIN RATIO 0.7 (1.0-2.7); ALKALINE PHOSPHATASE 100 U/L (46-116); ANION GAP 7 mmol/L (5-15); ASPARTATE AMINO TRANSFERASE 20 U/L (15-37); BILIRUBIN,TOTAL 0.4 MG/DL (0.2-1.0); BLOOD UREA NITROGEN 32 mg/dL (7-18); CALCIUM 8.5 MG/DL (8.5-10.1); CARBON DIOXIDE 33 MMOL/L (21-32); CHLORIDE 108 MMOL/L (98-107); CREATININE 0.6 MG/DL (0.55-1.30); POTASSIUM 3.2 MMOL/L (3.5-5.1); SODIUM 148 MMOL/L (136-145)
--- NOTE | 2020-06-03 08:29 | General Progress Note ---
Subjective ROS Limited/Unobtainable: No Constitutional: Reports: malaise, weakness HEENT: Reports: no symptoms Cardiovascular: Reports: no symptoms Respiratory: Reports: cough, shortness of breath, SOB at rest Gastrointestinal/Abdominal: Reports: difficulty swallowing Genitourinary: Reports: no symptoms Neurologic/Psychiatric: Reports: seizure Endocrine: Reports: no symptoms Hematologic/Lymphatic: Reports: anemia Allergies: Coded Allergies: PENICILLINS (Unverified Allergy, Unknown, 08/11/19) All Systems: reviewed and negative except above Subjective Remains on BiPAP at night. off during the day for only a few hrs. More alert and responsive- just taken off bipap. tolerating G-tube feeds. no fevers. alert. does not follow commands. remains on iv abx. Objective Last 24 Hour Vital Signs Date Time Temp Pulse Resp B/P (MAP) Pulse Ox O2 Delivery O2 Flow Rate FiO2 06/03/20 08:20 100 Nasal Cannula 3.0 32 06/03/20 05:31 126/62 06/03/20 05:24 84 20 96 06/03/20 04:07 106 06/03/20 04:00 98.7 101 24 130/71 (90) 100 06/03/20 04:00 30 06/03/20 04:00 Bi-pap Bi-pap 06/03/20 03:15 99 15 99 30 06/03/20 00:00 98.5 91 15 139/75 (96) 100 06/03/20 00:00 Bi-pap Bi-pap 06/03/20 00:00 91 06/03/20 00:00 30 06/02/20 23:20 83 26 100 30 06/02/20 21:39 79 110/51 06/02/20 20:00 Bi-pap Bi-pap 06/02/20 20:00 98.6 74 15 110/51 (70) 100 06/02/20 20:00 30 06/02/20 20:00 85 06/02/20 19:05 75 24 100 30 06/02/20 19:05 100 Bi-Pap 30 06/02/20 17:54 120/57 06/02/20 16:00 30 06/02/20 16:00 Bi-pap Bi-pap 06/02/20 16:00 98.2 81 20 116/67 (83) 100 06/02/20 15:13 90 11/23/20 12:24 110/52 06/02/20 12:00 80 06/02/20 12:00 30 06/02/20 12:00 Bi-pap Bi-pap 06/02/20 12:00 98.2 75 20 112/52 (72) 100 06/02/20 11:01 48 21 100 30 06/02/20 08:51 90 128/62 Intake and Output 06/02/20 06/03/20 19:00 07:00 Intake Total 870 ml 705 ml Output Total 550 ml 1600 ml Balance 320 ml -895 ml Intake Free Water 390 ml 225 ml Tube Feeding 480 ml 480 ml Output Urine Total 550 ml 1600 ml # Bowel Movements 2 2 Laboratory Tests 06/03/20 04:00: White Blood Count 10.3, Red Blood Count 3.89L, Hemoglobin 12.5L, Hematocrit 40.6L, Mean Corpuscular Volume 104H, Mean Corpuscular Hemoglobin 32.2H, Mean Corpuscular Hemoglobin Concent 30.9L, Red Cell Distribution Width 14.7, Platelet Count 178, Mean Platelet Volume 11.8H, Neutrophils (%) (Auto) 71.6, Lymphocytes (%) (Auto) 16.4L, Monocytes (%) (Auto) 9.8, Eosinophils (%) (Auto) 1.6, Basophils (%) (Auto) 0.7, Sodium Level 148H, Potassium Level 3.2L, Chloride Level 108H, Carbon Dioxide Level 33H, Anion Gap 7, Blood Urea Nitrogen 32H, Creatinine 0.6, Estimat Glomerular Filtration Rate > 60, Glucose Level 151H, Calcium Level 8.5, Magnesium Level 2.2, Total Bilirubin 0.4, Aspartate Amino Transf (AST/SGOT) 20, Alanine Aminotransferase (ALT/SGPT) 39, Alkaline Phosphatase 100, Pro-B-Type Natriuretic Peptide 1163H, Total Protein 7.0, Albumin 2.8L, Globulin 4.2, Albumin/Globulin Ratio 0.7L Height (Feet): 5 Height (Inches): 6.00 Weight (Pounds): 137 Objective General Appearance: WD/WN, alert, confused EENT: normal ENT inspection Neck: normal alignment Cardiovascular: normal rate Respiratory/Chest: chest wall non-tender, lungs clear, normal breath sounds Abdomen: normal bowel sounds, non tender, soft, no organomegaly Edema: no edema noted Arm (L), no edema noted Arm (R) Neurologic: alert, disoriented Assessment/Plan Problem List: (1) Seizure ICD Codes: R56.9 - Unspecified convulsions SNOMED: 17022964 (2) Dysphagia ICD Codes: R13.10 - Dysphagia, unspecified SNOMED: 90558286, 732946912 (3) UTI (urinary tract infection) ICD Codes: N39.0 - Urinary tract infection, site not specified SNOMED: 83768839 (4) Elevated troponin I level ICD Codes: R77.8 - Other specified abnormalities of plasma proteins SNOMED: 218161933 (5) AMS (altered mental status) ICD Codes: R41.82 - Altered mental status, unspecified SNOMED: 416570718 (6) NSTEMI (non-ST elevated myocardial infarction) ICD Codes: I21.4 - Non-ST elevation (NSTEMI) myocardial infarction SNOMED: 88267411 Status: stable Assessment/Plan: bipap qhs. nasal cannula during the day wean o2 during the day monitor abg- improving tube feeds monitor residuals monitor for vomiting sz rx cxr reviewed- stable monitor labs anxiolytics as needed o2 resp rx dvt/stress ulcer prophylaxis. ivf as needed snf able to accept pt on noctural bipap but not continuous Repeat Covid swab negative hypotonic ivf and iv k ordered Jorge Kee MD Jun 03, 2020 08:29
[2020-06-03] MEDS: Docusate 100mg/10ml Liq GT SCH ×2 (08:41→17:01)
[2020-06-03] MEDS: Heparin 5000 units/ml inj SUBQ SCH ×2 (08:42→21:00)
[2020-06-03] MEDS: levETIRAcetam 500mg/5ml Liquid GT SCH (08:42)
[2020-06-03] MEDS: Multivitamins W/Minerals 15 ML UDC GT SCH (08:42)
[2020-06-03] MEDS: Ascorbic Acid 500mg tab GT SCH (08:42)
--- NOTE | 2020-06-03 09:09 | Pulmonology Progress Note ---
Subjective ROS Limited/Unobtainable: No Constitutional: Denies: fever Allergies: Coded Allergies: PENICILLINS (Unverified Allergy, Unknown, 08/11/19) All Systems: reviewed and negative except above Subjective care noted back off BIPAP comfortable on NC Objective Last 24 Hour Vital Signs Date Time Temp Pulse Resp B/P (MAP) Pulse Ox O2 Delivery O2 Flow Rate FiO2 06/03/20 08:41 94 122/82 06/03/20 08:20 100 Nasal Cannula 3.0 32 06/03/20 05:31 126/62 06/03/20 05:24 84 20 96 06/03/20 04:07 106 06/03/20 04:00 98.7 101 24 130/71 (90) 100 06/03/20 04:00 30 06/03/20 04:00 Bi-pap Bi-pap 06/03/20 03:15 99 15 99 30 06/03/20 00:00 98.5 91 15 139/75 (96) 100 06/03/20 00:00 Bi-pap Bi-pap 06/03/20 00:00 91 06/03/20 00:00 30 06/02/20 23:20 83 26 100 30 06/02/20 21:39 79 110/51 06/02/20 20:00 Bi-pap Bi-pap 06/02/20 20:00 98.6 74 15 110/51 (70) 100 06/02/20 20:00 30 06/02/20 20:00 85 06/02/20 19:05 75 24 100 30 06/02/20 19:05 100 Bi-Pap 30 06/02/20 17:54 120/57 06/02/20 16:00 30 06/02/20 16:00 Bi-pap Bi-pap 06/02/20 16:00 98.2 81 20 116/67 (83) 100 06/02/20 15:13 90 06/02/20 12:24 110/52 06/02/20 12:00 80 06/02/20 12:00 30 06/02/20 12:00 Bi-pap Bi-pap 06/02/20 12:00 98.2 75 20 112/52 (72) 100 06/02/20 11:01 48 21 100 30 Intake and Output 06/02/20 06/03/20 19:00 07:00 Intake Total 870 ml 705 ml Output Total 550 ml 1600 ml Balance 320 ml -895 ml Intake Free Water 390 ml 225 ml Tube Feeding 480 ml 480 ml Output Urine Total 550 ml 1600 ml # Bowel Movements 2 2 Objective WDWN NAD reduced breath sounds bilaterally without rhonchi [id number] without MRG NABS nontender no CC mild edema nonfocal off BIPAP reduced LOC Microbiology Date/Time Source Procedure Growth Status 05/31/20 15:30 Nasopharynx Coronavirus COVID-19 PCR ([facility]) - Final Complete Laboratory Tests 06/03/20 04:00: White Blood Count 10.3, Red Blood Count 3.89L, Hemoglobin 12.5L, Hematocrit 40.6L, Mean Corpuscular Volume 104H, Mean Corpuscular Hemoglobin 32.2H, Mean Corpuscular Hemoglobin Concent 30.9L, Red Cell Distribution Width 14.7, Platelet Count 178, Mean Platelet Volume 11.8H, Neutrophils (%) (Auto) 71.6, Lymphocytes (%) (Auto) 16.4L, Monocytes (%) (Auto) 9.8, Eosinophils (%) (Auto) 1.6, Basophi ls (%) (Auto) 0.7, Sodium Level 148H, Potassium Level 3.2L, Chloride Level 108H, Carbon Dioxide Level 33H, Anion Gap 7, Blood Urea Nitrogen 32H, Creatinine 0.6, Estimat Glomerular Filtration Rate > 60, Glucose Level 151H, Calcium Level 8.5, Magnesium Level 2.2, Total Bilirubin 0.4, Aspartate Amino Transf (AST/SGOT) 20, Alanine Aminotransferase (ALT/SGPT) 39, Alkaline Phosphatase 100, Pro-B-Type Natriuretic Peptide 1163H, Total Protein 7.0, Albumin 2.8L, Globulin 4.2, Albumin/Globulin Ratio 0.7L Current Medications Medications (Trade) Dose Ordered Sig/Mayela Route PRN Reason Start Time Stop Time Status Last Admin Dose Admin Acetaminophen (Tylenol) 650 mg Q4H PRN GT back pain 05/06/20 15:15 06/05/20 15:14 05/30/20 00:39 Acetazolamide (Diamox) 250 mg TWICE A DAY GT 05/13/20 09:00 06/12/20 08:59 06/03/20 08:41 Ascorbic Acid (Vitamin C) 500 mg DAILY GT 05/07/20 09:00 06/06/20 08:59 06/03/20 08:42 Carvedilol (Coreg) 3.125 mg EVERY 12 HOURS GT 05/07/20 09:00 06/06/20 08:59 06/03/20 08:41 Cefepime HCl 2 gm/ Dextrose 55 ml @ 110 mls/hr Q24H IVPB 06/02/20 17:00 06/09/20 16:59 06/02/20 16:10 Clonidine HCl (Catapres Tab) 0.1 mg Q4H PRN ORAL SBP >160 05/08/20 22:15 08/06/20 22:14 Dextrose 1,000 ml @ 75 mls/hr [id number] IV 06/03/20 08:00 06/04/20 07:59 06/03/20 08:40 Docusate Sodium (Colace) 200 mg BID GT 05/06/20 18:00 06/05/20 17:59 06/02/20 08:52 Heparin Sodium (Porcine) (Heparin 5000 units/ml) 5,000 units EVERY 12 HOURS SUBQ 05/08/20 09:00 06/22/20 08:59 05/26/20 20:28 Levetiracetam (Keppra) 250 mg DAILY GT 05/19/20 15:11 06/18/20 15:10 06/03/20 08:42 Multivitamins (Multivitamins W/ Minerals 15ml Liquid) 5 ml DAILY GT 05/07/20 09:00 06/06/20 08:59 06/03/20 08:42 Nitroglycerin (Nitro-Bid) 1 inch TID@0600,1200,1800 TOPIC 05/16/20 18:00 06/15/20 17:59 06/03/20 05:31 Potassium Chloride 100 ml @ 100 mls/hr Q1HR IVPB 06/03/20 08:00 06/03/20 10:59 06/03/20 08:41 Potassium Chloride (K-Dur) 20 meq DAILY GT 05/13/20 09:00 08/11/20 08:59 06/03/20 08:42 Tamsulosin HCl (Flomax) 0.4 mg BEDTIME ORAL 05/06/20 21:00 06/05/20 20:59 06/02/20 21:39 Assessment/Plan Assessment/Plan ASSESSMENT: Pulmonary congestion, respiratory failure, hypoxemia dementia, G-tube, seizure disorder, congestive heart failure, COPD sepsis, and acute UT. acute on chronic CO2 retention PLAN: oxygen and need for BIPAP reviewed; repeat ABG for CO2 retention. Breathing treatments and aspiration precautions. Monitor blood gases for change.keep negative. seizure medications. feeds and monitor residuals; DNR noted DVT prophylaxis remains guarded and at risk for decompensation d/w primary impression, plan, and exam edited and reviewed in detail care discussed with Attila Yuan MD Jun 03, 2020 09:09
--- NOTE | 2020-06-03 11:08 | Surgery Progress Note ---
Surgery Progress Note Subjective Additional Comments no acute events labs noted on bipap intermittently no n/v Objective Last 24 Hour Vital Signs Date Time Temp Pulse Resp B/P (MAP) Pulse Ox O2 Delivery O2 Flow Rate FiO2 06/03/20 09:20 99.0 94 22 123/82 (96) 100 06/03/20 08:41 94 122/82 06/03/20 08:20 100 Nasal Cannula 3.0 32 06/03/20 05:31 126/62 06/03/20 05:24 84 20 96 06/03/20 04:07 106 06/03/20 04:00 98.7 101 24 130/71 (90) 100 06/03/20 04:00 30 06/03/20 04:00 Bi-pap Bi-pap 06/03/20 03:15 99 15 99 30 06/03/20 00:00 98.5 91 15 139/75 (96) 100 06/03/20 00:00 Bi-pap Bi-pap 06/03/20 00:00 91 06/03/20 00:00 30 06/02/20 23:20 83 26 100 30 06/02/20 21:39 79 110/51 06/02/20 20:00 Bi-pap Bi-pap 06/02/20 20:00 98.6 74 15 110/51 (70) 100 06/02/20 20:00 30 06/02/20 20:00 85 06/02/20 19:05 75 24 100 30 06/02/20 19:05 100 Bi-Pap 30 06/02/20 17:54 120/57 06/02/20 16:00 30 06/02/20 16:00 Bi-pap Bi-pap 06/02/20 16:00 98.2 81 20 116/67 (83) 100 06/02/20 15:13 90 06/02/20 12:24 110/52 06/02/20 12:00 80 06/02/20 12:00 30 06/02/20 12:00 Bi-pap Bi-pap 06/02/20 12:00 98.2 75 20 112/52 (72) 100 I&O Intake and Output 06/02/20 06/03/20 19:00 07:00 Intake Total 870 ml 705 ml Output Total 550 ml 1600 ml Balance 320 ml -895 ml Intake Free Water 390 ml 225 ml Tube Feeding 480 ml 480 ml Output Urine Total 550 ml 1600 ml # Bowel Movements 2 2 Dressing: saturated Cardiovascular: RSR Respiratory: decreased breath sounds, other Abdomen: non-tender, present bowel sounds, non-distended Extremities: no tenderness, no cyanosis Laboratory Tests Test 06/03/20 04:00 White Blood Count 10.3 K/UL (4.8-10.8) Red Blood Count 3.89 M/UL (4.70-6.10) L Hemoglobin 12.5 G/DL (14.2-18.0) L Hematocrit 40.6 % (42.0-52.0) L Mean Corpuscular Volume 104 FL (80-99) H Mean Corpuscular Hemoglobin 32.2 PG (27.0-31.0) H Mean Corpuscular Hemoglobin Concent 30.9 G/DL (32.0-36.0) L Red Cell Distribution Width 14.7 % (11.6-14.8) Platelet Count 178 K/UL (150-450) Mean Platelet Volume 11.8 FL (6.5-10.1) H Neutrophils (%) (Auto) 71.6 % (45.0-75.0) Lymphocytes (%) (Auto) 16.4 % (20.0-45.0) L Monocytes (%) (Auto) 9.8 % (1.0-10.0) Eosinophils (%) (Auto) 1.6 % (0.0-3.0) Basophils (%) (Auto) 0.7 % (0.0-2.0) Sodium Level 148 MMOL/L (136-145) H Potassium Level 3.2 MMOL/L (3.5-5.1) L Chloride Level 108 MMOL/L (98-107) H Carbon Dioxide Level 33 MMOL/L (21-32) H Anion Gap 7 mmol/L (5-15) Blood Urea Nitrogen 32 mg/dL (7-18) H Creatinine 0.6 MG/DL (0.55-1.30) Estimat Glomerular Filtration Rate > 60 mL/min (>60) Glucose Level 151 MG/DL (74-106) H Calcium Level 8.5 MG/DL (8.5-10.1) Magnesium Level 2.2 MG/DL (1.8-2.4) Total Bilirubin 0.4 MG/DL (0.2-1.0) Aspartate Amino Transf (AST/SGOT) 20 U/L (15-37) Alanine Aminotransferase (ALT/SGPT) 39 U/L (12-78) Alkaline Phosphatase 100 U/L (46-116) Pro-B-Type Natriuretic Peptide 1163 pg/mL (0-125) H Total Protein 7.0 G/DL (6.4-8.2) Albumin 2.8 G/DL (3.4-5.0) L Globulin 4.2 g/dL Albumin/Globulin Ratio 0.7 (1.0-2.7) L Plan Problems: (1) Deep tissue injury Assessment & Plan: Patient identified to have bilateral heel concerns for potential developing DTI. Soft boggy no fluid collection no acute injury at this time. Patient identified to have sacral erythema and skin changes with concerns for developing deep tissue injury as well. No open areas. No fluid collections no fluctuance no drainage. On the scrotum patient is identified to have edema erythema and some abrasion along with incontinence associated dermatitis in the area. Patient identified to have abrasion to the nasal brim secondary to a facemask placement. Patient is chronically ill elderly and malnourished. Wound evaluated and care plan initiated. Treatment plan Apply skin protectant to the nasal bridge followed by foam dressing prior to facemask placement. Patient currently requires oxygen supplementation and therefore important to ensure receiving such along with protection of underlying epidermis. Apply OPTi foam to heels change every 3 days offload pressure with pillows Apply OPTi foam to sacral area monitor for incontinence change accordingly every 3 days and as needed saturation. Soft towel under scrotum. Continue with respiratory supportive care Turn every 2 hours Offload pressure with pillows Continue tube feeds nutritional optimization we will follow with recommendations thank you for let me participate patient's care (2) Dementia with behavioral problem (3) UTI (urinary tract infection) (4) Elevated troponin I level (5) AMS (altered mental status) (6) Dysphagia Assessment & Plan: DAILY ESTIMATED NEEDS: Needs based on Pulmonary, cardiac, 62kg 25-30 kcals/kg 9662-2969 total kcals 1-1.5 g protein/kg 62-93 g total protein 25-30 mL/kg 4133-1219 total fluid mLs NUTRITION DIAGNOSIS: Swallowing difficulty r/t dysphagia as evidenced by pt is PEG dep, currently on continuous BIPAP. CURRENT TF: Glucerna 1.5 @ 40ml/hr ENTERAL NUTRITION RECOMMENDATIONS: Glucerna 1.5 goal of 45ml/hr x 24 hrs to provide 1080ml, 1620 kcal, 89g pro, 820ml free water * Maintain carb controlled TF of Glucerna 1.5 while CO2 critically elevated * As medically appropriate, increase goal rate to 45ml/hr x 24 hrs to better meet nutritional needs. * HOB over 30 degrees/ water flush per MD ADDITIONAL RECOMMENDATIONS: 1) Monitor BIPAP usage, safety of GT feeds -> continuous BIPAP at this time 2) Lytes daily, replete as needed Current TF Glucerna 1.5 @goal of 40ml/hr provides 2419mg K/day 3) Calibrated bed scale wts (Bed scale shows uptrend: 65kg-> 71kg) 4) Rec HgA1C for eval of BG control 5) F/up w/ WC eval: Continue MVI and Vit C (7) Seizure (8) NSTEMI (non-ST elevated myocardial infarction) (9) Respiratory insufficiency Assessment & Plan: constant required bipap ? trach dnr/dni discussed with pcp and pulm Duplex Doppler interrogation of the veins in both upper extremity is performed from the internal jugular veins to the radial and ulnar veins. No thrombus is identified. Basilic and cephalic veins are also patent bilaterally. There is mild subcutaneous edema of the right upper extremity. IMPRESSION: No evidence of deep venous thrombosis involving the upper extremities. Benitez Mayorga Jun 03, 2020 11:08
--- NOTE | 2020-06-03 11:26 | Infectious Diseases Prog Note ---
Assessment/Plan Assessment/Plan antibiotics : cefepime - A 1. Urinary tract infection with E. coli s/p rx 2. MRSA nasal colonization. 3. CHF. 4. COPD. 5. Seizures. 6. Dementia. 7. He is negative for COVID-19. 8. pneumonia 9. respiratory failure P 1. continue cefepime 2. will follow up cultures Subjective ROS Limited/Unobtainable: Yes Allergies: Coded Allergies: PENICILLINS (Unverified Allergy, Unknown, 08/11/19) Objective Last 24 Hour Vital Signs Date Time Temp Pulse Resp B/P (MAP) Pulse Ox O2 Delivery O2 Flow Rate FiO2 06/03/20 11:11 89 16 100 Nasal Cannula 3.0 32 06/03/20 09:20 99.0 94 22 123/82 (96) 100 06/03/20 08:41 94 122/82 06/03/20 08:20 100 Nasal Cannula 3.0 32 06/03/20 05:31 126/62 06/03/20 05:24 84 20 96 06/03/20 04:07 106 06/03/20 04:00 98.7 101 24 130/71 (90) 100 06/03/20 04:00 30 06/03/20 04:00 Bi-pap Bi-pap 06/03/20 03:15 99 15 99 30 06/03/20 00:00 98.5 91 15 139/75 (96) 100 06/03/20 00:00 Bi-pap Bi-pap 06/03/20 00:00 91 06/03/20 00:00 30 06/02/20 23:20 83 26 100 30 06/02/20 21:39 79 110/51 06/02/20 20:00 Bi-pap Bi-pap 06/02/20 20:00 98.6 74 15 110/51 (70) 100 06/02/20 20:00 30 06/02/20 20:00 85 06/02/20 19:05 75 24 100 30 06/02/20 19:05 100 Bi-Pap 30 06/02/20 17:54 120/57 06/02/20 16:00 30 06/02/20 16:00 Bi-pap Bi-pap 06/02/20 16:00 98.2 81 20 116/67 (83) 100 06/02/20 15:13 90 06/02/20 12:24 110/52 06/02/20 12:00 80 06/02/20 12:00 30 06/02/20 12:00 Bi-pap Bi-pap 06/02/20 12:00 98.2 75 20 112/52 (72) 100 Height (Feet): 5 Height (Inches): 6.00 Weight (Pounds): 137 Respiratory/Chest: lungs clear Cardiovascular: normal rate, regular rhythm, no gallop/murmur Abdomen: soft, non tender, other - GT Extremities: no edema Microbiology Date/Time Source Procedure Growth Status 05/31/20 15:30 Nasopharynx Coronavirus COVID-19 PCR ([facility]) - Final Complete Laboratory Tests Test 06/03/20 04:00 White Blood Count 10.3 K/UL (4.8-10.8) Red Blood Count 3.89 M/UL (4.70-6.10) L Hemoglobin 12.5 G/DL (14.2-18.0) L Hematocrit 40.6 % (42.0-52.0) L Mean Corpuscular Volume 104 FL (80-99) H Mean Corpuscular Hemoglobin 32.2 PG (27.0-31.0) H Mean Corpuscular Hemoglobin Concent 30.9 G/DL (32.0-36.0) L Red Cell Distribution Width 14.7 % (11.6-14.8) Platelet Count 178 K/UL (150-450) Mean Platelet Volume 11.8 FL (6.5-10.1) H Neutrophils (%) (Auto) 71.6 % (45.0-75.0) Lymphocytes (%) (Auto) 16.4 % (20.0-45.0) L Monocytes (%) (Auto) 9.8 % (1.0-10.0) Eosinophils (%) (Auto) 1.6 % (0.0-3.0) Basophils (%) (Auto) 0.7 % (0.0-2.0) Sodium Level 148 MMOL/L (136-145) H Potassium Level 3.2 MMOL/L (3.5-5.1) L Chloride Level 108 MMOL/L (98-107) H Carbon Dioxide Level 33 MMOL/L (21-32) H Anion Gap 7 mmol/L (5-15) Blood Urea Nitrogen 32 mg/dL (7-18) H Creatinine 0.6 MG/DL (0.55-1.30) Estimat Glomerular Filtration Rate > 60 mL/min (>60) Glucose Level 151 MG/DL (74-106) H Calcium Level 8.5 MG/DL (8.5-10.1) Magnesium Level 2.2 MG/DL (1.8-2.4) Total Bilirubin 0.4 MG/DL (0.2-1.0) Aspartate Amino Transf (AST/SGOT) 20 U/L (15-37) Alanine Aminotransferase (ALT/SGPT) 39 U/L (12-78) Alkaline Phosphatase 100 U/L (46-116) Pro-B-Type Natriuretic Peptide 1163 pg/mL (0-125) H Total Protein 7.0 G/DL (6.4-8.2) Albumin 2.8 G/DL (3.4-5.0) L Globulin 4.2 g/dL Albumin/Globulin Ratio 0.7 (1.0-2.7) L Current Medications Medications (Trade) Dose Ordered Sig/Mayela Route PRN Reason Start Time Stop Time Status Last Admin Dose Admin Acetaminophen (Tylenol) 650 mg Q4H PRN GT back pain 05/06/20 15:15 06/05/20 15:14 05/30/20 00:39 Acetazolamide (Diamox) 250 mg TWICE A DAY GT 05/13/20 09:00 06/12/20 08:59 06/03/20 08:41 Ascorbic Acid (Vitamin C) 500 mg DAILY GT 05/07/20 09:00 06/06/20 08:59 06/03/20 08:42 Carvedilol (Coreg) 3.125 mg EVERY 12 HOURS GT 05/07/20 09:00 06/06/20 08:59 06/03/20 08:41 Cefepime HCl 2 gm/ Dextrose 55 ml @ 110 mls/hr Q24H IVPB 06/02/20 17:00 06/09/20 16:59 06/02/20 16:10 Clonidine HCl (Catapres Tab) 0.1 mg Q4H PRN ORAL SBP >160 05/08/20 22:15 08/06/20 22:14 Dextrose 1,000 ml @ 75 mls/hr [id number] IV 06/03/20 08:00 06/04/20 07:59 06/03/20 08:40 Docusate Sodium (Colace) 200 mg BID GT 05/06/20 18:00 06/05/20 17:59 06/02/20 08:52 Heparin Sodium (Porcine) (Heparin 5000 units/ml) 5,000 units EVERY 12 HOURS SUBQ 05/08/20 09:00 06/22/20 08:59 05/26/20 20:28 Levetiracetam (Keppra) 250 mg DAILY GT 05/19/20 15:11 06/18/20 15:10 06/03/20 08:42 Multivitamins (Multivitamins W/ Minerals 15ml Liquid) 5 ml DAILY GT 05/07/20 09:00 06/06/20 08:59 06/03/20 08:42 Nitroglycerin (Nitro-Bid) 1 inch TID@0600,1200,1800 TOPIC 05/16/20 18:00 06/15/20 17:59 06/03/20 05:31 Potassium Chloride (K-Dur) 20 meq DAILY GT 05/13/20 09:00 08/11/20 08:59 06/03/20 08:42 Tamsulosin HCl (Flomax) 0.4 mg BEDTIME ORAL 05/06/20 21:00 06/05/20 20:59 06/02/20 21:39 Josué Light MD Jun 03, 2020 11:26
[2020-06-03] MEDS: Cefepime HCl 2 GM in D5W 55 ML IVPB SCH (16:57)
[2020-06-03] MEDS: Acetaminophen 650mg/20.3ml GT PRN (16:58)
[2020-06-03] MEDS: Tamsulosin 0.4mg cap ORAL SCH (21:03)
--- NOTE | 2020-06-03 21:33 | Cardiology Progress Note ---
Subjective DATE OF SERVICE: Jun 03, 2020 Remains on bipap due to CO2 retention; but continues slow progress. (05/30/20) 7.36/50/111 CXR (06/01) left lung consolidation. Mild CHF BP remains well controlled. BNP unchanged at 1100 range. Monitor: sinus with runof VTach today Objective Last 24 Hour Vital Signs Date Time Temp Pulse Resp B/P (MAP) Pulse Ox O2 Delivery O2 Flow Rate FiO2 06/03/20 21:04 70 120/65 06/03/20 20:00 98.2 74 20 120/65 (83) 100 06/03/20 19:01 100 Nasal Cannula 3.0 32 06/03/20 17:28 98.7 06/03/20 17:02 118/56 06/03/20 16:00 2.0 06/03/20 16:00 Nasal Cannula 2.0 Bi-pap 06/03/20 16:00 101.3 74 20 113/60 (77) 99 06/03/20 15:56 75 06/03/20 12:00 2.0 06/03/20 12:00 97.7 68 20 128/57 (80) 100 06/03/20 12:00 Nasal Cannula 2.0 Bi-pap 06/03/20 11:46 83 06/03/20 11:40 128/57 06/03/20 11:11 89 16 100 Nasal Cannula 3.0 32 06/03/20 09:20 99.0 94 22 123/82 (96) 100 06/03/20 08:41 94 122/82 06/03/20 08:40 148 06/03/20 08:20 100 Nasal Cannula 3.0 32 06/03/20 08:00 2.0 06/03/20 08:00 99.0 94 20 123/82 (96) 100 06/03/20 08:00 Nasal Cannula 2.0 Nasal Cannula 2.0 06/03/20 07:47 98 06/03/20 05:31 126/62 06/03/20 05:24 84 20 96 06/03/20 04:07 106 06/03/20 04:00 98.7 101 24 130/71 (90) 100 06/03/20 04:00 30 06/03/20 04:00 Bi-pap Bi-pap 06/03/20 03:15 99 15 99 30 06/03/20 00:00 98.5 91 15 139/75 (96) 100 06/03/20 00:00 Bi-pap Bi-pap 06/03/20 00:00 91 06/03/20 00:00 30 06/02/20 23:20 83 26 100 30 06/02/20 21:39 79 110/51 ROS: unchanged from my evaluation of 05/06/20 HEENT: normal ENT inspection, other - bipap mask RHYTHM: NSR, VT LUNGS: diminished breath sounds, left-sided rhonchi CARDIAC: normal rate, regular rhythm, normal S1 and S2 ABDOMEN: non tender, soft, G-Tube intact EXTREMITIES: non-pitting, No edema Laboratory Tests Test 06/03/20 04:00 White Blood Count 10.3 K/UL (4.8-10.8) Red Blood Count 3.89 M/UL (4.70-6.10) L Hemoglobin 12.5 G/DL (14.2-18.0) L Hematocrit 40.6 % (42.0-52.0) L Mean Corpuscular Volume 104 FL (80-99) H Mean Corpuscular Hemoglobin 32.2 PG (27.0-31.0) H Mean Corpuscular Hemoglobin Concent 30.9 G/DL (32.0-36.0) L Red Cell Distribution Width 14.7 % (11.6-14.8) Platelet Count 178 K/UL (150-450) Mean Platelet Volume 11.8 FL (6.5-10.1) H Neutrophils (%) (Auto) 71.6 % (45.0-75.0) Lymphocytes (%) (Auto) 16.4 % (20.0-45.0) L Monocytes (%) (Auto) 9.8 % (1.0-10.0) Eosinophils (%) (Auto) 1.6 % (0.0-3.0) Basophils (%) (Auto) 0.7 % (0.0-2.0) Sodium Level 148 MMOL/L (136-145) H Potassium Level 3.2 MMOL/L (3.5-5.1) L Chloride Level 108 MMOL/L (98-107) H Carbon Dioxide Level 33 MMOL/L (21-32) H Anion Gap 7 mmol/L (5-15) Blood Urea Nitrogen 32 mg/dL (7-18) H Creatinine 0.6 MG/DL (0.55-1.30) Estimat Glomerular Filtration Rate > 60 mL/min (>60) Glucose Level 151 MG/DL (74-106) H Calcium Level 8.5 MG/DL (8.5-10.1) Magnesium Level 2.2 MG/DL (1.8-2.4) Total Bilirubin 0.4 MG/DL (0.2-1.0) Aspartate Amino Transf (AST/SGOT) 20 U/L (15-37) Alanine Aminotransferase (ALT/SGPT) 39 U/L (12-78) Alkaline Phosphatase 100 U/L (46-116) Pro-B-Type Natriuretic Peptide 1163 pg/mL (0-125) H Total Protein 7.0 G/DL (6.4-8.2) Albumin 2.8 G/DL (3.4-5.0) L Globulin 4.2 g/dL Albumin/Globulin Ratio 0.7 (1.0-2.7) L Microbiology Date/Time Source Procedure Growth Status 06/02/20 23:30 Sputum Expectorated Gram Stain - Final Complete 06/02/20 23:30 Sputum Expectorated Sputum Culture - Final CULTURE NOT PERFORMED ... Complete Assessment/Plan Assessment/Plan E.coli UTI Sepsis Metabolic and toxic encephalopathies Cerebrovascular disease with dementia Acute myocardial ischemia and possible NSTEMI Dehydration/hypernatremia Hypertension/HHD Ac/chronic respiratory acidosis recovering Respiratory failure improving, but still requiring bipap support Ac diastolic CHF; BNP relatively unchanged. Metabolic acidosis Pleural effusions Ac/chr renal failure with azotemia Paroxysmal ventricular tachycardia hypokalemia Continue anti-anginal regimen; titrate meds for BP control. Maintain nitrates. Antimicrobial therapy per ID Monitor acid-base parameters; DC acetazolamide. Hypotonic IVF with potassium suppl Diuresis based on clinical parameters; hold until free water deficit corrected Bipap support-taper to nighttime only. Real Magana MD Jun 03, 2020 21:33
[2020-06-04] VITALS: BP 113/55
[2020-06-04 04:00] VITALS: BP 116/63
[2020-06-04 04:46] LABS: EOSINOPHILS % (AUTO) 2.5 % (0.0-3.0); HEMOGLOBIN 10.9 G/DL (14.2-18.0); LYMPHOCYTES % (AUTO) 19.8 % (20.0-45.0); MEAN CORPUSCULAR VOLUME 104 FL (80-99); MONOCYTES % (AUTO) 11.2 % (1.0-10.0); NEUTROPHILS % (AUTO) 65.6 % (45.0-75.0); PLATELET COUNT 138 K/UL (150-450); RED BLOOD COUNT 3.36 M/UL (4.70-6.10); RED CELL DISTRIBUTION WIDTH 14.5 % (11.6-14.8); WHITE BLOOD COUNT 9.6 K/UL (4.8-10.8)
[2020-06-04 05:07] LABS: ALANINE AMINOTRANSFERASE 32 U/L (12-78); ALBUMIN 2.4 G/DL (3.4-5.0); ALBUMIN/GLOBULIN RATIO 0.7 (1.0-2.7); ALKALINE PHOSPHATASE 89 U/L (46-116); ANION GAP 1 mmol/L (5-15); ASPARTATE AMINO TRANSFERASE 23 U/L (15-37); BILIRUBIN,TOTAL 0.3 MG/DL (0.2-1.0); BLOOD UREA NITROGEN 34 mg/dL (7-18); CALCIUM 7.9 MG/DL (8.5-10.1); CARBON DIOXIDE 33 MMOL/L (21-32); CHLORIDE 106 MMOL/L (98-107); CREATININE 0.6 MG/DL (0.55-1.30); POTASSIUM 4.1 MMOL/L (3.5-5.1); SODIUM 140 MMOL/L (136-145)
[2020-06-04 08:00] VITALS: BP 110/54
[2020-06-04] MEDS: Ascorbic Acid 500mg tab GT SCH (08:36)
[2020-06-04] MEDS: Multivitamins W/Minerals 15 ML UDC GT SCH (08:36)
[2020-06-04] MEDS: Docusate 100mg/10ml Liq GT SCH ×2 (08:36→17:00)
[2020-06-04] MEDS: levETIRAcetam 500mg/5ml Liquid GT SCH (08:36)
[2020-06-04] MEDS: Heparin 5000 units/ml inj SUBQ SCH ×2 (08:38→20:05)
[2020-06-04] MEDS ORDERED: FLOMAX0.4 MG ORAL (08:55)
[2020-06-04] MEDS ORDERED: CLONIDINE HCL0.1 MG ORAL (08:55)
[2020-06-04] MEDS ORDERED: CEFEPIME-D2 GM/50 ML IVPB (08:55)
[2020-06-04] MEDS ORDERED: KEPPRA LIQ100 MG/1 M GT (08:55)
[2020-06-04] MEDS ORDERED: COREG3.125 MG GT (08:55)
--- NOTE | 2020-06-04 11:28 | Infectious Diseases Prog Note ---
Assessment/Plan Assessment/Plan antibiotics : cefepime 11 .,20 - A 1. Urinary tract infection with E. coli s/p rx 2. MRSA nasal colonization. 3. CHF. 4. COPD. 5. Seizures. 6. Dementia. 7. He is negative for COVID-19. 8. pneumonia 9. respiratory failure P 1. continue cefepime 4 more days 2. will follow up cultures Subjective ROS Limited/Unobtainable: Yes Allergies: Coded Allergies: PENICILLINS (Unverified Allergy, Unknown, 08/11/19) Objective Last 24 Hour Vital Signs Date Time Temp Pulse Resp B/P (MAP) Pulse Ox O2 Delivery O2 Flow Rate FiO2 06/04/20 08:37 77 110/54 06/04/20 08:30 100 Nasal Cannula 2.0 28 06/04/20 08:00 98.1 72 20 110/54 (72) 97 06/04/20 08:00 2.0 06/04/20 08:00 Nasal Cannula 2.0 Nasal Cannula 2.0 06/04/20 07:40 78 06/04/20 04:00 98.2 72 20 116/63 (80) 100 06/04/20 04:00 71 06/04/20 04:00 Nasal Cannula 2.0 Nasal Cannula 2.0 06/04/20 04:00 2.0 06/04/20 00:00 Nasal Cannula 2.0 Nasal Cannula 2.0 06/04/20 00:00 98.2 68 24 113/55 (74) 100 06/04/20 00:00 2.0 06/04/20 00:00 69 06/03/20 23:51 67 14 100 30 06/03/20 21:04 70 120/65 06/03/20 21:00 2.0 06/03/20 20:00 70 06/03/20 20:00 98.2 74 20 120/65 (83) 100 06/03/20 20:00 Nasal Cannula 2.0 Nasal Cannula 2.0 06/03/20 19:01 100 Nasal Cannula 3.0 32 06/03/20 17:28 98.7 06/03/20 17:02 118/56 06/03/20 16:00 2.0 06/03/20 16:00 Nasal Cannula 2.0 Bi-pap 06/03/20 16:00 101.3 74 20 113/60 (77) 99 06/03/20 15:56 75 06/03/20 12:00 2.0 06/03/20 12:00 97.7 68 20 128/57 (80) 100 06/03/20 12:00 Nasal Cannula 2.0 Bi-pap 06/03/20 11:46 83 06/03/20 11:40 128/57 Height (Feet): 5 Height (Inches): 6.00 Weight (Pounds): 137 Respiratory/Chest: lungs clear Cardiovascular: normal rate, regular rhythm, no gallop/murmur Abdomen: soft, non tender, other - GT Extremities: no edema Microbiology Date/Time Source Procedure Growth Status 06/02/20 23:30 Sputum Expectorated Gram Stain - Final Complete 06/02/20 23:30 Sputum Expectorated Sputum Culture - Final CULTURE NOT PERFORMED ... Complete Laboratory Tests Test 06/04/20 03:10 06/04/20 08:57 White Blood Count 9.6 K/UL (4.8-10.8) Red Blood Count 3.36 M/UL (4.70-6.10) L Hemoglobin 10.9 G/DL (14.2-18.0) L Hematocrit 35.0 % (42.0-52.0) L Mean Corpuscular Volume 104 FL (80-99) H Mean Corpuscular Hemoglobin 32.4 PG (27.0-31.0) H Mean Corpuscular Hemoglobin Concent 31.1 G/DL (32.0-36.0) L Red Cell Distribution Width 14.5 % (11.6-14.8) Platelet Count 138 K/UL (150-450) L Mean Platelet Volume 11.2 FL (6.5-10.1) H Neutrophils (%) (Auto) 65.6 % (45.0-75.0) Lymphocytes (%) (Auto) 19.8 % (20.0-45.0) L Monocytes (%) (Auto) 11.2 % (1.0-10.0) H Eosinophils (%) (Auto) 2.5 % (0.0-3.0) Basophils (%) (Auto) 1.0 % (0.0-2.0) Sodium Level 140 MMOL/L (136-145) Potassium Level 4.1 MMOL/L (3.5-5.1) Chloride Level 106 MMOL/L (98-107) Carbon Dioxide Level 33 MMOL/L (21-32) H Anion Gap 1 mmol/L (5-15) L Blood Urea Nitrogen 34 mg/dL (7-18) H Creatinine 0.6 MG/DL (0.55-1.30) Estimat Glomerular Filtration Rate > 60 mL/min (>60) Glucose Level 152 MG/DL (74-106) H Calcium Level 7.9 MG/DL (8.5-10.1) L Magnesium Level 2.2 MG/DL (1.8-2.4) Total Bilirubin 0.3 MG/DL (0.2-1.0) Aspartate Amino Transf (AST/SGOT) 23 U/L (15-37) Alanine Aminotransferase (ALT/SGPT) 32 U/L (12-78) Alkaline Phosphatase 89 U/L (46-116) Total Protein 5.9 G/DL (6.4-8.2) L Albumin 2.4 G/DL (3.4-5.0) L Globulin 3.5 g/dL Albumin/Globulin Ratio 0.7 (1.0-2.7) L Arterial Blood pH 7.460 (7.350-7.450) Arterial Blood Partial Pressure CO2 40.6 mmHg (35.0-45.0) Arterial Blood Partial Pressure O2 147.7 mmHg (75.0-100.0) H Arterial Blood HCO3 28.2 mmol/L (22.0-26.0) H Arterial Blood Oxygen Saturation 97.2 % (95-100) Arterial Blood Base Excess 4.1 (-2-2) H Apollo Test Positive Current Medications Medications (Trade) Dose Ordered Sig/Mayela Route PRN Reason Start Time Stop Time Status Last Admin Dose Admin Acetaminophen (Tylenol) 650 mg Q4H PRN GT back pain 05/06/20 15:15 06/05/20 15:14 06/03/20 16:58 Ascorbic Acid (Vitamin C) 500 mg DAILY GT 05/07/20 09:00 06/06/20 08:59 06/04/20 08:36 Carvedilol (Coreg) 3.125 mg EVERY 12 HOURS GT 05/07/20 09:00 06/06/20 08:59 06/04/20 08:37 Cefepime HCl 2 gm/ Dextrose 55 ml @ 110 mls/hr Q24H IVPB 06/02/20 17:00 06/09/20 16:59 06/03/20 16:57 Clonidine HCl (Catapres Tab) 0.1 mg Q4H PRN ORAL SBP >160 05/08/20 22:15 08/06/20 22:14 Dextrose/ Electrolytes 1,000 ml @ 75 mls/hr [id number] IV 06/03/20 22:00 07/03/20 21:59 06/03/20 22:09 Docusate Sodium (Colace) 200 mg BID GT 05/06/20 18:00 06/05/20 17:59 06/04/20 08:36 Heparin Sodium (Porcine) (Heparin 5000 units/ml) 5,000 units EVERY 12 HOURS SUBQ 05/08/20 09:00 06/22/20 08:59 05/26/20 20:28 Levetiracetam (Keppra) 250 mg DAILY GT 05/19/20 15:11 06/18/20 15:10 06/04/20 08:36 Multivitamins (Multivitamins W/ Minerals 15ml Liquid) 5 ml DAILY GT 05/07/20 09:00 06/06/20 08:59 06/04/20 08:36 Potassium Chloride (K-Dur) 20 meq DAILY GT 05/13/20 09:00 08/11/20 08:59 06/04/20 08:37 Tamsulosin HCl (Flomax) 0.4 mg BEDTIME ORAL 05/06/20 21:00 06/05/20 20:59 06/03/20 21:03 Josué Light MD Jun 04, 2020 11:28
[2020-06-04 12:09] VITALS: BP 108/75
--- NOTE | 2020-06-04 12:30 | Discharge Summary ---
DATE OF ADMISSION: 05/06/2020 DATE OF DISCHARGE: 06/04/2020 ADMISSION DIAGNOSES: 1. Respiratory failure. 2. Sepsis. 3. UTI. 4. Seizure disorder. 5. Dysphagia. 6. Toxic metabolic encephalopathy. 7. Hyponatremia. 8. Dehydration. DISCHARGE DIAGNOSES: 1. Respiratory failure. 2. Sepsis. 3. UTI. 4. Seizure disorder. 5. Dysphagia. 6. Toxic metabolic encephalopathy. 7. Hyponatremia. 8. Dehydration. HOSPITAL COURSE: The patient is an 80-year-old male with multiple problems admitted with complaints of sepsis secondary to UTI. He developed respiratory failure requiring placement on BiPAP. Attempts of weaning were unsuccessful. The patient remained BiPAP dependent. His hospital course was complicated by hyponatremia, recurrent episodes of congestion, and altered mentation. Eventually, the patient did improve and on discharge was stable. He will be discharged back to the assisted facility on antibiotic therapy and nocturnal BiPAP. DISCHARGE MEDICATIONS: Please see discharge medication list for discharge medications. DIET: G-tube feedings. ACTIVITIES: Ad-jeannine. Jorge Kee M.D. DR: CLIFFORD JOB#: [id number] CC:
--- NOTE | 2020-06-04 14:05 | Pulmonology Progress Note ---
Subjective ROS Limited/Unobtainable: Yes Constitutional: Denies: fever Allergies: Coded Allergies: PENICILLINS (Unverified Allergy, Unknown, 08/11/19) All Systems: reviewed and negative except above Subjective care noted back off BIPAP comfortable on NC Objective Last 24 Hour Vital Signs Date Time Temp Pulse Resp B/P (MAP) Pulse Ox O2 Delivery O2 Flow Rate FiO2 06/04/20 12:10 2.0 06/04/20 12:09 98.0 80 20 108/75 (86) 97 06/04/20 12:08 Nasal Cannula 2.0 Nasal Cannula 2.0 06/04/20 11:45 78 06/04/20 08:37 77 110/54 06/04/20 08:30 100 Nasal Cannula 2.0 28 06/04/20 08:00 98.1 72 20 110/54 (72) 97 06/04/20 08:00 2.0 06/04/20 08:00 Nasal Cannula 2.0 Nasal Cannula 2.0 06/04/20 07:40 78 06/04/20 04:00 98.2 72 20 116/63 (80) 100 06/04/20 04:00 71 06/04/20 04:00 Nasal Cannula 2.0 Nasal Cannula 2.0 06/04/20 04:00 2.0 06/04/20 00:00 Nasal Cannula 2.0 Nasal Cannula 2.0 06/04/20 00:00 98.2 68 24 113/55 (74) 100 06/04/20 00:00 2.0 06/04/20 00:00 69 06/03/20 23:51 67 14 100 30 06/03/20 21:04 70 120/65 06/03/20 21:00 2.0 06/03/20 20:00 70 06/03/20 20:00 98.2 74 20 120/65 (83) 100 06/03/20 20:00 Nasal Cannula 2.0 Nasal Cannula 2.0 06/03/20 19:01 100 Nasal Cannula 3.0 32 06/03/20 17:28 98.7 06/03/20 17:02 118/56 06/03/20 16:00 2.0 06/03/20 16:00 Nasal Cannula 2.0 Bi-pap 06/03/20 16:00 101.3 74 20 113/60 (77) 99 06/03/20 15:56 75 Intake and Output 06/03/20 06/04/20 19:00 07:00 Intake Total 1605 ml 1327.5 ml Output Total 700 ml 400 ml Balance 905 ml 927.5 ml Intake Free Water 300 ml 225 ml IV Total 785 ml 662.5 ml Tube Feeding 520 ml 440 ml Output Urine Total 700 ml 400 ml # Bowel Movements 2 3 Objective WDWN NAD reduced breath sounds bilaterally without rhonchi [id number] without MRG NABS nontender no CC mild edema nonfocal off BIPAP reduced LOC Microbiology Date/Time Source Procedure Growth Status 06/02/20 23:30 Sputum Expectorated Gram Stain - Final Complete 06/02/20 23:30 Sputum Expectorated Sputum Culture - Final CULTURE NOT PERFORMED ... Complete Laboratory Tests 06/04/20 03:10: White Blood Count 9.6, Red Blood Count 3.36L, Hemoglobin 10.9L, Hematocrit 35.0L , Mean Corpuscular Volume 104H, Mean Corpuscular Hemoglobin 32.4H, Mean Corpuscular Hemoglobin Concent 31.1L, Red Cell Distribution Width 14.5, Platelet Count 138L, Mean Platelet Volume 11.2H, Neutrophils (%) (Auto) 65.6, Lymphocytes (%) (Auto) 19.8L, Monocytes (%) (Auto) 11.2H, Eosinophils (%) (Auto) 2.5, Basophils (%) (Auto) 1.0, Sodium Level 140, Potassium Level 4.1, Chloride Level 106, Carbon Dioxide Level 33H, Anion Gap 1L, Blood Urea Nitrogen 34H, Creatinine 0.6, Estimat Glomerular Filtration Rate > 60, Glucose Level 152H, Calcium Level 7.9L, Magnesium Level 2.2, Total Bilirubin 0.3, Aspartate Amino Transf (AST/SGOT) 23, Alanine Aminotransferase (ALT/SGPT) 32, Alkaline Phosphatase 89, Total Protein 5.9L, Albumin 2.4L, Globulin 3.5, Albumin/Globulin Ratio 0.7L 06/04/20 08:57: Arterial Blood pH 7.460H, Arterial Blood Partial Pressure CO2 40.6, Arterial Blood Partial Pressure O2 147.7H, Arterial Blood HCO3 28.2H, Arterial Blood Oxygen Saturation 97.2, Arterial Blood Base Excess 4.1H, Apollo Test Positive Current Medications Medications (Trade) Dose Ordered Sig/Mayela Route PRN Reason Start Time Stop Time Status Last Admin Dose Admin Acetaminophen (Tylenol) 650 mg Q4H PRN GT back pain 05/06/20 15:15 06/05/20 15:14 06/03/20 16:58 Ascorbic Acid (Vitamin C) 500 mg DAILY GT 05/07/20 09:00 06/06/20 08:59 06/04/20 08:36 Carvedilol (Coreg) 3.125 mg EVERY 12 HOURS GT 05/07/20 09:00 06/06/20 08:59 06/04/20 08:37 Cefepime HCl 2 gm/ Dextrose 55 ml @ 110 mls/hr Q24H IVPB 06/02/20 17:00 06/09/20 16:59 06/03/20 16:57 Clonidine HCl (Catapres Tab) 0.1 mg Q4H PRN ORAL SBP >160 05/08/20 22:15 08/06/20 22:14 Dextrose/ Electrolytes 1,000 ml @ 75 mls/hr [id number] IV 06/03/20 22:00 07/03/20 21:59 06/04/20 12:21 Docusate Sodium (Colace) 200 mg BID GT 05/06/20 18:00 06/05/20 17:59 06/04/20 08:36 Heparin Sodium (Porcine) (Heparin 5000 units/ml) 5,000 units EVERY 12 HOURS SUBQ 05/08/20 09:00 06/22/20 08:59 05/26/20 20:28 Levetiracetam (Keppra) 250 mg DAILY GT 05/19/20 15:11 06/18/20 15:10 06/04/20 08:36 Multivitamins (Multivitamins W/ Minerals 15ml Liquid) 5 ml DAILY GT 05/07/20 09:00 06/06/20 08:59 06/04/20 08:36 Potassium Chloride (K-Dur) 20 meq DAILY GT 05/13/20 09:00 08/11/20 08:59 06/04/20 08:37 Tamsulosin HCl (Flomax) 0.4 mg BEDTIME ORAL 05/06/20 21:00 06/05/20 20:59 06/03/20 21:03 Assessment/Plan Assessment/Plan ASSESSMENT: Pulmonary congestion, respiratory failure, hypoxemia dementia, G-tube, seizure disorder, congestive heart failure, COPD sepsis, and acute IL. acute on chronic CO2 retention PLAN: oxygen and need for BIPAP reviewed; repeat ABG for CO2 retention. Breathing treatments and aspiration precautions. Monitor blood gases for change.keep negative. seizure medications. feeds and monitor residuals; DNR noted DVT prophylaxis remains guarded and at risk for decompensation d/w primary impression, plan, and exam edited and reviewed in detail care discussed with Attila Yuan MD Jun 04, 2020 14:05
[2020-06-04 16:02] VITALS: BP 115/68
[2020-06-04] MEDS: Cefepime HCl 2 GM in D5W 55 ML IVPB SCH (17:07)
--- NOTE | 2020-06-04 17:17 | Cardiology Progress Note ---
Subjective DATE OF SERVICE: Jun 04, 2020 Remains on bipap at [facility]. (06/04/20) 7.46/40/147 CXR (06/01) left lung consolidation. Mild CHF BP remains well controlled. BNP unchanged at 1100 range. Monitor: sinus with runof VTach yesterday Objective Last 24 Hour Vital Signs Date Time Temp Pulse Resp B/P (MAP) Pulse Ox O2 Delivery O2 Flow Rate FiO2 06/04/20 16:02 98.0 67 20 115/68 (84) 97 06/04/20 16:00 Nasal Cannula 2.0 Nasal Cannula 2.0 06/04/20 12:10 2.0 06/04/20 12:09 98.0 80 20 108/75 (86) 97 06/04/20 12:08 Nasal Cannula 2.0 Nasal Cannula 2.0 06/04/20 11:45 78 06/04/20 08:37 77 110/54 06/04/20 08:30 100 Nasal Cannula 2.0 28 06/04/20 08:00 98.1 72 20 110/54 (72) 97 06/04/20 08:00 2.0 06/04/20 08:00 Nasal Cannula 2.0 Nasal Cannula 2.0 06/04/20 07:40 78 06/04/20 04:00 98.2 72 20 116/63 (80) 100 06/04/20 04:00 71 06/04/20 04:00 Nasal Cannula 2.0 Nasal Cannula 2.0 06/04/20 04:00 2.0 06/04/20 00:00 Nasal Cannula 2.0 Nasal Cannula 2.0 06/04/20 00:00 98.2 68 24 113/55 (74) 100 06/04/20 00:00 2.0 06/04/20 00:00 69 06/03/20 23:51 67 14 100 30 06/03/20 21:04 70 120/65 06/03/20 21:00 2.0 06/03/20 20:00 70 06/03/20 20:00 98.2 74 20 120/65 (83) 100 06/03/20 20:00 Nasal Cannula 2.0 Nasal Cannula 2.0 06/03/20 19:01 100 Nasal Cannula 3.0 32 06/03/20 17:28 98.7 ROS: unchanged from my evaluation of 05/06/20 HEENT: normal ENT inspection, other - bipap mask RHYTHM: NSR, VT LUNGS: diminished breath sounds, left-sided rhonchi CARDIAC: normal rate, regular rhythm, normal S1 and S2 ABDOMEN: non tender, soft, G-Tube intact EXTREMITIES: non-pitting, No edema Laboratory Tests Test 06/04/20 03:10 06/04/20 08:57 White Blood Count 9.6 K/UL (4.8-10.8) Red Blood Count 3.36 M/UL (4.70-6.10) L Hemoglobin 10.9 G/DL (14.2-18.0) L Hematocrit 35.0 % (42.0-52.0) L Mean Corpuscular Volume 104 FL (80-99) H Mean Corpuscular Hemoglobin 32.4 PG (27.0-31.0) H Mean Corpuscular Hemoglobin Concent 31.1 G/DL (32.0-36.0) L Red Cell Distribution Width 14.5 % (11.6-14.8) Platelet Count 138 K/UL (150-450) L Mean Platelet Volume 11.2 FL (6.5-10.1) H Neutrophils (%) (Auto) 65.6 % (45.0-75.0) Lymphocytes (%) (Auto) 19.8 % (20.0-45.0) L Monocytes (%) (Auto) 11.2 % (1.0-10.0) H Eosinophils (%) (Auto) 2.5 % (0.0-3.0) Basophils (%) (Auto) 1.0 % (0.0-2.0) Sodium Level 140 MMOL/L (136-145) Potassium Level 4.1 MMOL/L (3.5-5.1) Chloride Level 106 MMOL/L (98-107) Carbon Dioxide Level 33 MMOL/L (21-32) H Anion Gap 1 mmol/L (5-15) L Blood Urea Nitrogen 34 mg/dL (7-18) H Creatinine 0.6 MG/DL (0.55-1.30) Estimat Glomerular Filtration Rate > 60 mL/min (>60) Glucose Level 152 MG/DL (74-106) H Calcium Level 7.9 MG/DL (8.5-10.1) L Magnesium Level 2.2 MG/DL (1.8-2.4) Total Bilirubin 0.3 MG/DL (0.2-1.0) Aspartate Amino Transf (AST/SGOT) 23 U/L (15-37) Alanine Aminotransferase (ALT/SGPT) 32 U/L (12-78) Alkaline Phosphatase 89 U/L (46-116) Total Protein 5.9 G/DL (6.4-8.2) L Albumin 2.4 G/DL (3.4-5.0) L Globulin 3.5 g/dL Albumin/Globulin Ratio 0.7 (1.0-2.7) L Arterial Blood pH 7.460 (7.350-7.450) Arterial Blood Partial Pressure CO2 40.6 mmHg (35.0-45.0) Arterial Blood Partial Pressure O2 147.7 mmHg (75.0-100.0) H Arterial Blood HCO3 28.2 mmol/L (22.0-26.0) H Arterial Blood Oxygen Saturation 97.2 % (95-100) Arterial Blood Base Excess 4.1 (-2-2) H Apollo Test Positive Microbiology Date/Time Source Procedure Growth Status 06/02/20 23:30 Sputum Expectorated Gram Stain - Final Complete 06/02/20 23:30 Sputum Expectorated Sputum Culture - Final CULTURE NOT PERFORMED ... Complete Assessment/Plan Assessment/Plan E.coli UTI Sepsis Metabolic and toxic encephalopathies Cerebrovascular disease with dementia Acute myocardial ischemia and possible NSTEMI Dehydration/hypernatremia Hypertension/HHD Ac/chronic respiratory acidosis now compensated Respiratory failure improving, but still requiring bipap support Ac diastolic CHF; BNP relatively unchanged. Metabolic acidosis Pleural effusions Ac/chr renal failure with azotemia Paroxysmal ventricular tachycardia hypokalemia Continue anti-anginal regimen including nitrates. Maintain current antiHTN regimen. Antimicrobial therapy per ID Maintain adequate free water per Gtube. No current need for diuretics. Bipap support-taper to nighttime only. Real Magana MD Jun 04, 2020 17:17
--- NOTE | 2020-06-04 18:05 | Surgery Progress Note ---
Surgery Progress Note Subjective Symptoms: improved, tolerating diet, passing flatus, BM Additional Comments labs improved d/c planning Objective Last 24 Hour Vital Signs Date Time Temp Pulse Resp B/P (MAP) Pulse Ox O2 Delivery O2 Flow Rate FiO2 06/04/20 16:02 98.0 67 20 115/68 (84) 97 06/04/20 16:00 Nasal Cannula 2.0 Nasal Cannula 2.0 06/04/20 15:14 68 06/04/20 12:10 2.0 06/04/20 12:09 98.0 80 20 108/75 (86) 97 06/04/20 12:08 Nasal Cannula 2.0 Nasal Cannula 2.0 06/04/20 11:45 78 06/04/20 08:37 77 110/54 06/04/20 08:30 100 Nasal Cannula 2.0 28 06/04/20 08:00 98.1 72 20 110/54 (72) 97 06/04/20 08:00 2.0 06/04/20 08:00 Nasal Cannula 2.0 Nasal Cannula 2.0 06/04/20 07:40 78 06/04/20 04:00 98.2 72 20 116/63 (80) 100 06/04/20 04:00 71 06/04/20 04:00 Nasal Cannula 2.0 Nasal Cannula 2.0 06/04/20 04:00 2.0 06/04/20 00:00 Nasal Cannula 2.0 Nasal Cannula 2.0 06/04/20 00:00 98.2 68 24 113/55 (74) 100 06/04/20 00:00 2.0 06/04/20 00:00 69 06/03/20 23:51 67 14 100 30 06/03/20 21:04 70 120/65 06/03/20 21:00 2.0 06/03/20 20:00 70 06/03/20 20:00 98.2 74 20 120/65 (83) 100 06/03/20 20:00 Nasal Cannula 2.0 Nasal Cannula 2.0 06/03/20 19:01 100 Nasal Cannula 3.0 32 I&O Intake and Output 06/03/20 06/04/20 19:00 07:00 Intake Total 1605 ml 1327.5 ml Output Total 700 ml 400 ml Balance 905 ml 927.5 ml Intake Free Water 300 ml 225 ml IV Total 785 ml 662.5 ml Tube Feeding 520 ml 440 ml Output Urine Total 700 ml 400 ml # Bowel Movements 2 3 Dressing: saturated Cardiovascular: RSR Respiratory: decreased breath sounds Abdomen: non-tender, present bowel sounds Extremities: no tenderness, no cyanosis Laboratory Tests Test 06/04/20 03:10 06/04/20 08:57 White Blood Count 9.6 K/UL (4.8-10.8) Red Blood Count 3.36 M/UL (4.70-6.10) L Hemoglobin 10.9 G/DL (14.2-18.0) L Hematocrit 35.0 % (42.0-52.0) L Mean Corpuscular Volume 104 FL (80-99) H Mean Corpuscular Hemoglobin 32.4 PG (27.0-31.0) H Mean Corpuscular Hemoglobin Concent 31.1 G/DL (32.0-36.0) L Red Cell Distribution Width 14.5 % (11.6-14.8) Platelet Count 138 K/UL (150-450) L Mean Platelet Volume 11.2 FL (6.5-10.1) H Neutrophils (%) (Auto) 65.6 % (45.0-75.0) Lymphocytes (%) (Auto) 19.8 % (20.0-45.0) L Monocytes (%) (Auto) 11.2 % (1.0-10.0) H Eosinophils (%) (Auto) 2.5 % (0.0-3.0) Basophils (%) (Auto) 1.0 % (0.0-2.0) Sodium Level 140 MMOL/L (136-145) Potassium Level 4.1 MMOL/L (3.5-5.1) Chloride Level 106 MMOL/L (98-107) Carbon Dioxide Level 33 MMOL/L (21-32) H Anion Gap 1 mmol/L (5-15) L Blood Urea Nitrogen 34 mg/dL (7-18) H Creatinine 0.6 MG/DL (0.55-1.30) Estimat Glomerular Filtration Rate > 60 mL/min (>60) Glucose Level 152 MG/DL (74-106) H Calcium Level 7.9 MG/DL (8.5-10.1) L Magnesium Level 2.2 MG/DL (1.8-2.4) Total Bilirubin 0.3 MG/DL (0.2-1.0) Aspartate Amino Transf (AST/SGOT) 23 U/L (15-37) Alanine Aminotransferase (ALT/SGPT) 32 U/L (12-78) Alkaline Phosphatase 89 U/L (46-116) Total Protein 5.9 G/DL (6.4-8.2) L Albumin 2.4 G/DL (3.4-5.0) L Globulin 3.5 g/dL Albumin/Globulin Ratio 0.7 (1.0-2.7) L Arterial Blood pH 7.460 (7.350-7.450) Arterial Blood Partial Pressure CO2 40.6 mmHg (35.0-45.0) Arterial Blood Partial Pressure O2 147.7 mmHg (75.0-100.0) H Arterial Blood HCO3 28.2 mmol/L (22.0-26.0) H Arterial Blood Oxygen Saturation 97.2 % (95-100) Arterial Blood Base Excess 4.1 (-2-2) H Apollo Test Positive Plan Problems: (1) Deep tissue injury Assessment & Plan: Patient identified to have bilateral heel concerns for potential developing DTI. Soft boggy no fluid collection no acute injury at this time. Patient identified to have sacral erythema and skin changes with concerns for developing deep tissue injury as well. No open areas. No fluid collections no fluctuance no drainage. On the scrotum patient is identified to have edema erythema and some abrasion along with incontinence associated dermatitis in the area. Patient identified to have abrasion to the nasal brim secondary to a facemask placement. Patient is chronically ill elderly and malnourished. Wound evaluated and care plan initiated. Treatment plan Apply skin protectant to the nasal bridge followed by foam dressing prior to facemask placement. Patient currently requires oxygen supplementation and therefore important to ensure receiving such along with protection of underlying epidermis. Apply OPTi foam to heels change every 3 days offload pressure with pillows Apply OPTi foam to sacral area monitor for incontinence change accordingly every 3 days and as needed saturation. Soft towel under scrotum. Continue with respiratory supportive care Turn every 2 hours Offload pressure with pillows Continue tube feeds nutritional optimization we will follow with recommendations thank you for let me participate patient's care (2) Dementia with behavioral problem (3) UTI (urinary tract infection) (4) Elevated troponin I level (5) AMS (altered mental status) (6) Dysphagia Assessment & Plan: DAILY ESTIMATED NEEDS: Needs based on Pulmonary, cardiac, 62kg 25-30 kcals/kg 2562-3466 total kcals 1-1.5 g protein/kg 62-93 g total protein 25-30 mL/kg 2438-3562 total fluid mLs NUTRITION DIAGNOSIS: Swallowing difficulty r/t dysphagia as evidenced by pt is PEG dep, currently on continuous BIPAP. CURRENT TF: Glucerna 1.5 @ 40ml/hr ENTERAL NUTRITION RECOMMENDATIONS: Glucerna 1.5 goal of 45ml/hr x 24 hrs to provide 1080ml, 1620 kcal, 89g pro, 820ml free water * Maintain carb controlled TF of Glucerna 1.5 while CO2 critically elevated * As medically appropriate, increase goal rate to 45ml/hr x 24 hrs to better meet nutritional needs. * HOB over 30 degrees/ water flush per MD ADDITIONAL RECOMMENDATIONS: 1) Monitor BIPAP usage, safety of GT feeds -> continuous BIPAP at this time 2) Lytes daily, replete as needed Current TF Glucerna 1.5 @goal of 40ml/hr provides 2419mg K/day 3) Calibrated bed scale wts (Bed scale shows uptrend: 65kg-> 71kg) 4) Rec HgA1C for eval of BG control 5) F/up w/ WC eval: Continue MVI and Vit C (7) Seizure (8) NSTEMI (non-ST elevated myocardial infarction) (9) Respiratory insufficiency Assessment & Plan: constant required bipap ? trach dnr/dni discussed with pcp and pulm Duplex Doppler interrogation of the veins in both upper extremity is performed from the internal jugular veins to the radial and ulnar veins. No thrombus is identified. Basilic and cephalic veins are also patent bilaterally. There is mild subcutaneous edema of the right upper extremity. IMPRESSION: No evidence of deep venous thrombosis involving the upper extremities. Benitez Mayorga Jun 04, 2020 18:05
[2020-06-04 20:00] VITALS: BP 132/68
[2020-06-04] MEDS: Tamsulosin 0.4mg cap ORAL SCH (20:09)
[2020-06-05] VITALS (7 sets, daily range): BP systolic 114–146; BP diastolic 51–78
--- NOTE | 2020-06-05 08:20 | General Progress Note ---
Subjective ROS Limited/Unobtainable: No Constitutional: Reports: malaise, weakness HEENT: Reports: no symptoms Cardiovascular: Reports: no symptoms Respiratory: Reports: cough, shortness of breath Genitourinary: Reports: no symptoms Neurologic/Psychiatric: Reports: pre-existing deficit, seizure Endocrine: Reports: no symptoms Hematologic/Lymphatic: Reports: anemia Allergies: Coded Allergies: PENICILLINS (Unverified Allergy, Unknown, 08/11/19) All Systems: reviewed and negative except above Subjective off bipap. awake and alert. no distress. no fever or chills. tolerating feeds. no reports of szs. Objective Last 24 Hour Vital Signs Date Time Temp Pulse Resp B/P (MAP) Pulse Ox O2 Delivery O2 Flow Rate FiO2 06/05/20 04:00 97.5 69 22 129/60 (83) 99 06/05/20 04:00 1.0 06/05/20 04:00 Nasal Cannula 2.0 Nasal Cannula 2.0 06/05/20 03:27 68 06/05/20 00:00 1.0 06/05/20 00:00 96.6 67 22 114/51 (72) 100 06/05/20 00:00 Nasal Cannula 2.0 Nasal Cannula 2.0 06/04/20 23:30 67 06/04/20 22:49 87 16 100 06/04/20 20:10 71 132/68 06/04/20 20:00 Nasal Cannula 2.0 Nasal Cannula 2.0 06/04/20 20:00 1.0 06/04/20 20:00 98.1 70 20 132/68 (89) 100 06/04/20 19:07 72 06/04/20 19:00 100 Nasal Cannula 2.0 28 06/04/20 16:02 98.0 67 20 115/68 (84) 97 06/04/20 16:00 1.0 06/04/20 16:00 Nasal Cannula 2.0 Nasal Cannula 2.0 06/04/20 15:14 68 06/04/20 12:10 2.0 06/04/20 12:09 98.0 80 20 108/75 (86) 97 06/04/20 12:08 Nasal Cannula 2.0 Nasal Cannula 2.0 06/04/20 11:45 78 06/04/20 08:37 77 110/54 06/04/20 08:30 100 Nasal Cannula 2.0 28 Intake and Output 06/04/20 06/05/20 19:00 07:00 Intake Total 1080 ml 1600 ml Output Total 400 ml Balance 1080 ml 1200 ml Intake Free Water 225 ml 225 ml IV Total 375 ml 895 ml Tube Feeding 480 ml 480 ml Output Urine Total 400 ml # Bowel Movements 5 4 Laboratory Tests 06/04/20 08:57: Arterial Blood pH 7.460H, Arterial Blood Partial Pressure CO2 40.6, Arterial Blood Partial Pressure O2 147.7H, Arterial Blood HCO3 28.2H, Arterial Blood Oxygen Saturation 97.2, Arterial Blood Base Excess 4.1H, Apollo Test Positive Height (Feet): 5 Height (Inches): 6.00 Weight (Pounds): 137 Objective General Appearance: WD/WN, alert, confused EENT: normal ENT inspection Neck: normal alignment Cardiovascular: normal rate Respiratory/Chest: chest wall non-tender, lungs clear, normal breath sounds Abdomen: normal bowel sounds, non tender, soft, no organomegaly Edema: no edema noted Arm (L), no edema noted Arm (R) Neurologic: alert, disoriented Assessment/Plan Problem List: (1) Seizure ICD Codes: R56.9 - Unspecified convulsions SNOMED: 57159552 (2) Dysphagia ICD Codes: R13.10 - Dysphagia, unspecified SNOMED: 94773322, 785409396 (3) UTI (urinary tract infection) ICD Codes: N39.0 - Urinary tract infection, site not specified SNOMED: 16335629 (4) Elevated troponin I level ICD Codes: R77.8 - Other specified abnormalities of plasma proteins SNOMED: 572413054 (5) AMS (altered mental status) ICD Codes: R41.82 - Altered mental status, unspecified SNOMED: 245886624 (6) NSTEMI (non-ST elevated myocardial infarction) ICD Codes: I21.4 - Non-ST elevation (NSTEMI) myocardial infarction SNOMED: 95435238 Status: stable Assessment/Plan: bipap qhs. nasal cannula during the day wean o2 during the day monitor abg- improving tube feeds monitor residuals monitor for vomiting sz rx cxr reviewed- stable monitor labs anxiolytics as needed o2 resp rx dvt/stress ulcer prophylaxis. ivf as needed snf able to accept pt on noctural bipap but not continuous family deciding on snf placement Jorge Kee MD Jun 05, 2020 08:20
--- NOTE | 2020-06-05 08:52 | Pulmonology Progress Note ---
Subjective ROS Limited/Unobtainable: Yes Constitutional: Denies: fever Allergies: Coded Allergies: PENICILLINS (Unverified Allergy, Unknown, 08/11/19) All Systems: reviewed and negative except above Subjective care noted back off BIPAP comfortable on NC Objective Last 24 Hour Vital Signs Date Time Temp Pulse Resp B/P (MAP) Pulse Ox O2 Delivery O2 Flow Rate FiO2 06/05/20 08:22 100 Nasal Cannula 2.0 28 06/05/20 08:00 1.0 06/05/20 08:00 97.5 53 18 116/66 (83) 100 06/05/20 04:00 97.5 69 22 129/60 (83) 99 06/05/20 04:00 1.0 06/05/20 04:00 Nasal Cannula 2.0 Nasal Cannula 2.0 06/05/20 03:27 68 06/05/20 00:00 1.0 06/05/20 00:00 96.6 67 22 114/51 (72) 100 06/05/20 00:00 Nasal Cannula 2.0 Nasal Cannula 2.0 06/04/20 23:30 67 06/04/20 22:49 87 16 100 06/04/20 20:10 71 132/68 06/04/20 20:00 Nasal Cannula 2.0 Nasal Cannula 2.0 06/04/20 20:00 1.0 06/04/20 20:00 98.1 70 20 132/68 (89) 100 06/04/20 19:07 72 06/04/20 19:00 100 Nasal Cannula 2.0 28 06/04/20 16:02 98.0 67 20 115/68 (84) 97 06/04/20 16:00 1.0 06/04/20 16:00 Nasal Cannula 2.0 Nasal Cannula 2.0 06/04/20 15:14 68 06/04/20 12:10 2.0 06/04/20 12:09 98.0 80 20 108/75 (86) 97 06/04/20 12:08 Nasal Cannula 2.0 Nasal Cannula 2.0 06/04/20 11:45 78 Intake and Output 06/04/20 06/05/20 19:00 07:00 Intake Total 1080 ml 1600 ml Output Total 400 ml Balance 1080 ml 1200 ml Intake Free Water 225 ml 225 ml IV Total 375 ml 895 ml Tube Feeding 480 ml 480 ml Output Urine Total 400 ml # Bowel Movements 5 4 Objective WDWN NAD reduced breath sounds bilaterally without rhonchi [id number] without MRG NABS nontender no CC mild edema nonfocal off BIPAP reduced LOC Microbiology Date/Time Source Procedure Growth Status 06/02/20 23:30 Sputum Expectorated Gram Stain - Final Complete 06/02/20 23:30 Sputum Expectorated Sputum Culture - Final CULTURE NOT PERFORMED ... Complete Laboratory Tests 06/04/20 08:57: Arterial Blood pH 7.460H, Arterial Blood Partial Pressure CO2 40.6, Arterial Blood Partial Pressure O2 147.7H, Arterial Blood HCO3 28.2H, Arterial Blood Oxygen Saturation 97.2, Arterial Blood Base Excess 4.1H, Apollo Test Positive Current Medications Medications (Trade) Dose Ordered Sig/Mayela Route PRN Reason Start Time Stop Time Status Last Admin Dose Admin Acetaminophen (Tylenol) 650 mg Q4H PRN GT back pain 05/06/20 15:15 06/05/20 15:14 06/03/20 16:58 Ascorbic Acid (Vitamin C) 500 mg DAILY GT 05/07/20 09:00 06/06/20 08:59 06/04/20 08:36 Carvedilol (Coreg) 3.125 mg EVERY 12 HOURS GT 05/07/20 09:00 06/06/20 08:59 06/04/20 20:10 Cefepime HCl 2 gm/ Dextrose 55 ml @ 110 mls/hr Q24H IVPB 06/02/20 17:00 06/09/20 16:59 06/04/20 17:07 Clonidine HCl (Catapres Tab) 0.1 mg Q4H PRN ORAL SBP >160 05/08/20 22:15 08/06/20 22:14 Dextrose/ Electrolytes 1,000 ml @ 75 mls/hr [id number] IV 06/03/20 22:00 07/03/20 21:59 06/05/20 00:02 Docusate Sodium (Colace) 200 mg BID GT 05/06/20 18:00 06/05/20 17:59 06/04/20 08:36 Heparin Sodium (Porcine) (Heparin 5000 units/ml) 5,000 units EVERY 12 HOURS SUBQ 05/08/20 09:00 06/22/20 08:59 05/26/20 20:28 Levetiracetam (Keppra) 250 mg DAILY GT 05/19/20 15:11 06/18/20 15:10 06/04/20 08:36 Multivitamins (Multivitamins W/ Minerals 15ml Liquid) 5 ml DAILY GT 05/07/20 09:00 06/06/20 08:59 06/04/20 08:36 Potassium Chloride (K-Dur) 20 meq DAILY GT 05/13/20 09:00 08/11/20 08:59 06/04/20 08:37 Tamsulosin HCl (Flomax) 0.4 mg BEDTIME ORAL 05/06/20 21:00 06/05/20 20:59 06/04/20 20:09 Assessment/Plan Assessment/Plan ASSESSMENT: Pulmonary congestion, respiratory failure, hypoxemia dementia, G-tube, seizure disorder, congestive heart failure, COPD sepsis, and acute MA. acute on chronic CO2 retention PLAN: oxygen and need for BIPAP reviewed; repeat ABG for CO2 retention. Breathing treatments and aspiration precautions. Monitor blood gases for change.keep negative. seizure medications. feeds and monitor residuals; DNR noted DVT prophylaxis remains guarded and at risk for decompensation d/w primary impression, plan, and exam edited and reviewed in detail care discussed with Attila Yuan MD Jun 05, 2020 08:52
[2020-06-05] MEDS: Docusate 100mg/10ml Liq GT SCH (09:00)
[2020-06-05] MEDS: Heparin 5000 units/ml inj SUBQ SCH ×2 (09:00→20:17)
[2020-06-05] MEDS: Ascorbic Acid 500mg tab GT SCH (09:08)
[2020-06-05] MEDS: levETIRAcetam 500mg/5ml Liquid GT SCH (09:08)
[2020-06-05] MEDS: Multivitamins W/Minerals 15 ML UDC GT SCH (09:12)
--- NOTE | 2020-06-05 11:34 | Surgery Progress Note ---
Surgery Progress Note Subjective Symptoms: tolerating diet, passing flatus, BM, other, pain decreased Objective Last 24 Hour Vital Signs Date Time Temp Pulse Resp B/P (MAP) Pulse Ox O2 Delivery O2 Flow Rate FiO2 06/05/20 09:07 53 116/66 06/05/20 08:22 100 Nasal Cannula 2.0 28 06/05/20 08:00 1.0 06/05/20 08:00 Nasal Cannula 1.0 Nasal Cannula 1.0 06/05/20 08:00 97.5 53 18 116/66 (83) 100 06/05/20 08:00 85 06/05/20 04:00 97.5 69 22 129/60 (83) 99 06/05/20 04:00 1.0 06/05/20 04:00 Nasal Cannula 2.0 Nasal Cannula 2.0 06/05/20 03:27 68 06/05/20 00:00 1.0 06/05/20 00:00 96.6 67 22 114/51 (72) 100 06/05/20 00:00 Nasal Cannula 2.0 Nasal Cannula 2.0 06/04/20 23:30 67 06/04/20 22:49 87 16 100 06/04/20 20:10 71 132/68 06/04/20 20:00 Nasal Cannula 2.0 Nasal Cannula 2.0 06/04/20 20:00 1.0 06/04/20 20:00 98.1 70 20 132/68 (89) 100 06/04/20 19:07 72 06/04/20 19:00 100 Nasal Cannula 2.0 28 06/04/20 16:02 98.0 67 20 115/68 (84) 97 06/04/20 16:00 1.0 06/04/20 16:00 Nasal Cannula 2.0 Nasal Cannula 2.0 06/04/20 15:14 68 06/04/20 12:10 2.0 06/04/20 12:09 98.0 80 20 108/75 (86) 97 06/04/20 12:08 Nasal Cannula 2.0 Nasal Cannula 2.0 06/04/20 11:45 78 I&O Intake and Output 06/04/20 06/05/20 19:00 07:00 Intake Total 1080 ml 1600 ml Output Total 400 ml Balance 1080 ml 1200 ml Intake Free Water 225 ml 225 ml IV Total 375 ml 895 ml Tube Feeding 480 ml 480 ml Output Urine Total 400 ml # Bowel Movements 5 4 Dressing: saturated Cardiovascular: RSR Respiratory: decreased breath sounds Abdomen: soft, non-tender, present bowel sounds, non-distended Extremities: no tenderness, no cyanosis Plan Problems: (1) Deep tissue injury Assessment & Plan: Patient identified to have bilateral heel concerns for potential developing DTI. Soft boggy no fluid collection no acute injury at this time. Patient identified to have sacral erythema and skin changes with concerns for developing deep tissue injury as well. No open areas. No fluid collections no fluctuance no drainage. On the scrotum patient is identified to have edema erythema and some abrasion along with incontinence associated dermatitis in the area. Patient identified to have abrasion to the nasal brim secondary to a facemask placement. Patient is chronically ill elderly and malnourished. Wound evaluated and care plan initiated. Treatment plan Apply skin protectant to the nasal bridge followed by foam dressing prior to facemask placement. Patient currently requires oxygen supplementation and the refore important to ensure receiving such along with protection of underlying epidermis. Apply OPTi foam to heels change every 3 days offload pressure with pillows Apply OPTi foam to sacral area monitor for incontinence change accordingly every 3 days and as needed saturation. Soft towel under scrotum. Continue with respiratory supportive care Turn every 2 hours Offload pressure with pillows Continue tube feeds nutritional optimization we will follow with recommendations thank you for let me participate patient's care (2) Dementia with behavioral problem (3) UTI (urinary tract infection) (4) Elevated troponin I level (5) AMS (altered mental status) (6) Dysphagia Assessment & Plan: DAILY ESTIMATED NEEDS: Needs based on Pulmonary, cardiac, 62kg 25-30 kcals/kg 8780-2946 total kcals 1-1.5 g protein/kg 62-93 g total protein 25-30 mL/kg 2886-2492 total fluid mLs NUTRITION DIAGNOSIS: Swallowing difficulty r/t dysphagia as evidenced by pt is PEG dep, currently on continuous BIPAP. CURRENT TF: Glucerna 1.5 @ 40ml/hr ENTERAL NUTRITION RECOMMENDATIONS: Glucerna 1.5 goal of 45ml/hr x 24 hrs to provide 1080ml, 1620 kcal, 89g pro, 820ml free water * Maintain carb controlled TF of Glucerna 1.5 while CO2 critically elevated * As medically appropriate, increase goal rate to 45ml/hr x 24 hrs to better meet nutritional needs. * HOB over 30 degrees/ water flush per MD ADDITIONAL RECOMMENDATIONS: 1) Monitor BIPAP usage, safety of GT feeds -> continuous BIPAP at this time 2) Lytes daily, replete as needed Current TF Glucerna 1.5 @goal of 40ml/hr provides 2419mg K/day 3) Calibrated bed scale wts (Bed scale shows uptrend: 65kg-> 71kg) 4) Rec HgA1C for eval of BG control 5) F/up w/ WC eval: Continue MVI and Vit C (7) Seizure (8) NSTEMI (non-ST elevated myocardial infarction) (9) Respiratory insufficiency Assessment & Plan: constant required bipap ? trach dnr/dni discussed with pcp and pulm Duplex Doppler interrogation of the veins in both upper extremity is performed from the internal jugular veins to the radial and ulnar veins. No thrombus is identified. Basilic and cephalic veins are also patent bilaterally. There is mild subcutaneous edema of the right upper extremity. IMPRESSION: No evidence of deep venous thrombosis involving the upper extremities. Benitez Mayorga Jun 05, 2020 11:34
--- NOTE | 2020-06-05 12:42 | Infectious Diseases Prog Note ---
Assessment/Plan Assessment/Plan A: 1. Pneumonia 2. MRSA nasal colonization. 3. CHF. 4. COPD. 5. Seizures. 6. Dementia. 7. He is negative for COVID-19. 8. Hypercapnic respiratory failure 9. Pleural effusion 10. Leukocytosis PLAN: 1. Continue Cefepime X 3 days Subjective ROS Limited/Unobtainable: Yes Neurologic: Reports: confusion, other - on restraint Allergies: Coded Allergies: PENICILLINS (Unverified Allergy, Unknown, 08/11/19) Objective Last 24 Hour Vital Signs Date Time Temp Pulse Resp B/P (MAP) Pulse Ox O2 Delivery O2 Flow Rate FiO2 06/05/20 11:43 1.0 06/05/20 11:43 Nasal Cannula 1.0 Nasal Cannula 1.0 06/05/20 11:42 98.6 67 20 122/63 (82) 100 06/05/20 09:07 53 116/66 06/05/20 08:22 100 Nasal Cannula 2.0 28 06/05/20 08:00 1.0 06/05/20 08:00 Nasal Cannula 1.0 Nasal Cannula 1.0 06/05/20 08:00 97.5 53 18 116/66 (83) 100 06/05/20 08:00 85 06/05/20 04:00 97.5 69 22 129/60 (83) 99 06/05/20 04:00 1.0 06/05/20 04:00 Nasal Cannula 2.0 Nasal Cannula 2.0 06/05/20 03:27 68 06/05/20 00:00 1.0 06/05/20 00:00 96.6 67 22 114/51 (72) 100 06/05/20 00:00 Nasal Cannula 2.0 Nasal Cannula 2.0 06/04/20 23:30 67 06/04/20 22:49 87 16 100 06/04/20 20:10 71 132/68 06/04/20 20:00 Nasal Cannula 2.0 Nasal Cannula 2.0 06/04/20 20:00 1.0 06/04/20 20:00 98.1 70 20 132/68 (89) 100 06/04/20 19:07 72 06/04/20 19:00 100 Nasal Cannula 2.0 28 06/04/20 16:02 98.0 67 20 115/68 (84) 97 06/04/20 16:00 1.0 06/04/20 16:00 Nasal Cannula 2.0 Nasal Cannula 2.0 06/04/20 15:14 68 Height (Feet): 5 Height (Inches): 6.00 Weight (Pounds): 137 HEENT: mucous membranes moist Respiratory/Chest: lungs clear, other - oxygen by nasal cannula Cardiovascular: normal rate Abdomen: soft, non tender Extremities: no edema Neurologic/Psychiatric: alert, responsive, disoriented Microbiology Date/Time Source Procedure Growth Status 06/02/20 23:30 Sputum Expectorated Gram Stain - Final Complete 06/02/20 23:30 Sputum Expectorated Sputum Culture - Final CULTURE NOT PERFORMED ... Complete Current Medications Medications (Trade) Dose Ordered Sig/Mayela Route PRN Reason Start Time Stop Time Status Last Admin Dose Admin Acetaminophen (Tylenol) 650 mg Q4H PRN GT back pain 05/06/20 15:15 06/05/20 15:14 06/03/20 16:58 Ascorbic Acid (Vitamin C) 500 mg DAILY GT 05/07/20 09:00 06/06/20 08:59 06/05/20 09:08 Carvedilol (Coreg) 3.125 mg EVERY 12 HOURS GT 05/07/20 09:00 06/06/20 08:59 06/05/20 09:07 Cefepime HCl 2 gm/ Dextrose 55 ml @ 110 mls/hr Q24H IVPB 06/02/20 17:00 06/09/20 16:59 06/04/20 17:07 Clonidine HCl (Catapres Tab) 0.1 mg Q4H PRN ORAL SBP >160 05/08/20 22:15 08/06/20 22:14 Dextrose/ Electrolytes 1,000 ml @ 75 mls/hr [id number] IV 06/03/20 22:00 07/03/20 21:59 06/05/20 00:02 Docusate Sodium (Colace) 200 mg BID GT 05/06/20 18:00 06/05/20 17:59 06/04/20 08:36 Heparin Sodium (Porcine) (Heparin 5000 units/ml) 5,000 units EVERY 12 HOURS SUBQ 05/08/20 09:00 06/22/20 08:59 05/26/20 20:28 Levetiracetam (Keppra) 250 mg DAILY GT 05/19/20 15:11 06/18/20 15:10 06/05/20 09:08 Multivitamins (Multivitamins W/ Minerals 15ml Liquid) 5 ml DAILY GT 05/07/20 09:00 06/06/20 08:59 06/05/20 09:12 Potassium Chloride (K-Dur) 20 meq DAILY GT 05/13/20 09:00 08/11/20 08:59 06/05/20 09:07 Tamsulosin HCl (Flomax) 0.4 mg BEDTIME ORAL 05/06/20 21:00 06/05/20 20:59 06/04/20 20:09 Luis Yanes MD Jun 05, 2020 12:42
--- NOTE | 2020-06-05 15:00 | Cardiology Progress Note ---
Subjective DATE OF SERVICE: Jun 05, 2020 Remains on bipap at [facility]. Comfortable on O2 by n/c during day. (06/04/20) 7.46/40/147 CXR (06/01) left lung consolidation. Mild CHF BP remains well controlled. BNP unchanged at 1100 range. Monitor: sinus with runof VTach yesterday Objective Last 24 Hour Vital Signs Date Time Temp Pulse Resp B/P (MAP) Pulse Ox O2 Delivery O2 Flow Rate FiO2 06/05/20 12:00 70 06/05/20 11:43 1.0 06/05/20 11:43 Nasal Cannula 1.0 Nasal Cannula 1.0 06/05/20 11:42 98.6 67 20 122/63 (82) 100 06/05/20 09:07 53 116/66 06/05/20 08:22 100 Nasal Cannula 2.0 28 06/05/20 08:00 1.0 06/05/20 08:00 Nasal Cannula 1.0 Nasal Cannula 1.0 06/05/20 08:00 97.5 53 18 116/66 (83) 100 06/05/20 08:00 85 06/05/20 04:00 97.5 69 22 129/60 (83) 99 06/05/20 04:00 1.0 06/05/20 04:00 Nasal Cannula 2.0 Nasal Cannula 2.0 06/05/20 03:27 68 06/05/20 00:00 1.0 06/05/20 00:00 96.6 67 22 114/51 (72) 100 06/05/20 00:00 Nasal Cannula 2.0 Nasal Cannula 2.0 06/04/20 23:30 67 06/04/20 22:49 87 16 100 06/04/20 20:10 71 132/68 06/04/20 20:00 Nasal Cannula 2.0 Nasal Cannula 2.0 06/04/20 20:00 1.0 06/04/20 20:00 98.1 70 20 132/68 (89) 100 06/04/20 19:07 72 06/04/20 19:00 100 Nasal Cannula 2.0 28 06/04/20 16:02 98.0 67 20 115/68 (84) 97 06/04/20 16:00 1.0 06/04/20 16:00 Nasal Cannula 2.0 Nasal Cannula 2.0 06/04/20 15:14 68 ROS: unchanged from my evaluation of 05/06/20 HEENT: normal ENT inspection, other - bipap mask RHYTHM: NSR, VT LUNGS: diminished breath sounds, left-sided rhonchi CARDIAC: normal rate, regular rhythm, normal S1 and S2 ABDOMEN: non tender, soft, G-Tube intact EXTREMITIES: non-pitting, No edema Microbiology Date/Time Source Procedure Growth Status 06/02/20 23:30 Sputum Expectorated Gram Stain - Final Complete 06/02/20 23:30 Sputum Expectorated Sputum Culture - Final CULTURE NOT PERFORMED ... Complete Assessment/Plan Assessment/Plan E.coli UTI Sepsis Metabolic and toxic encephalopathies Cerebrovascular disease with dementia Acute myocardial ischemia and possible NSTEMI Dehydration/hypernatremia Hypertension/HHD Ac/chronic respiratory acidosis now compensated Respiratory failure improving, but still requiring bipap support Ac diastolic CHF; BNP relatively unchanged. Metabolic acidosis Pleural effusions Ac/chr renal failure with azotemia Paroxysmal ventricular tachycardia hypokalemia Continue anti-anginal regimen including nitrates. Maintain current antiHTN regimen. Antimicrobial therapy per ID. Maintain adequate free water per Gtube. No current need for diuretics. Bipap support-taper to nighttime only. Real Magana MD Jun 05, 2020 15:00
[2020-06-05] MEDS: Cefepime HCl 2 GM in D5W 55 ML IVPB SCH (16:37)
[2020-06-05] MEDS ORDERED: NS 275ml ONE ×2 (21:06→21:23)
[2020-06-05] MEDS ORDERED: Tubing IV Secondary IV ONE ×2 (21:06→21:23)
[2020-06-05] MEDS ORDERED: D5 1/2NS 1000ml IV ONE (21:07)
[2020-06-06] VITALS: BP 141/70
[2020-06-06 04:00] VITALS: BP 155/68
[2020-06-06 07:12] LABS: BASOPHILS % (AUTO) 0.9 % (0.0-2.0); EOSINOPHILS % (AUTO) 3.2 % (0.0-3.0); HEMOGLOBIN 12.3 G/DL (14.2-18.0); LYMPHOCYTES % (AUTO) 22.2 % (20.0-45.0); MEAN CORPUSCULAR VOLUME 97 FL (80-99); NEUTROPHILS % (AUTO) 63.7 % (45.0-75.0); PLATELET COUNT 139 K/UL (150-450); RED BLOOD COUNT 3.82 M/UL (4.70-6.10); WHITE BLOOD COUNT 8.3 K/UL (4.8-10.8)
[2020-06-06 07:31] LABS: BLOOD UREA NITROGEN 16 mg/dL (7-18); CALCIUM 8.1 MG/DL (8.5-10.1); CARBON DIOXIDE 35 MMOL/L (21-32); CHLORIDE 108 MMOL/L (98-107); CREATININE 0.5 MG/DL (0.55-1.30); POTASSIUM 4.5 MMOL/L (3.5-5.1); SODIUM 142 MMOL/L (136-145)
[2020-06-06 08:00] VITALS: BP_SYST 148; BP_SYST 168; BP_DIAS 70; BP_DIAS 82
[2020-06-06] MEDS: levETIRAcetam 500mg/5ml Liquid GT SCH (08:08)
[2020-06-06] MEDS: Heparin 5000 units/ml inj SUBQ SCH ×2 (08:34→20:02)
--- NOTE | 2020-06-06 09:35 | Pulmonology Progress Note ---
Subjective ROS Limited/Unobtainable: Yes Constitutional: Denies: fever Allergies: Coded Allergies: PENICILLINS (Unverified Allergy, Unknown, 08/11/19) All Systems: reviewed and negative except above Subjective care noted back off BIPAP comfortable on NC Objective Last 24 Hour Vital Signs Date Time Temp Pulse Resp B/P (MAP) Pulse Ox O2 Delivery O2 Flow Rate FiO2 06/06/20 08:54 168/70 06/06/20 08:46 54 33 95 30 06/06/20 08:00 98.8 61 25 168/70 (102) 94 06/06/20 08:00 106 06/06/20 08:00 30 06/06/20 06:55 94 Nasal Cannula 2.0 28 06/06/20 04:00 97.3 71 24 155/68 (97) 94 06/06/20 04:00 69 06/06/20 04:00 Nasal Cannula 1.0 Nasal Cannula 1.0 06/06/20 04:00 1.0 06/06/20 00:00 69 06/06/20 00:00 Nasal Cannula 1.0 Nasal Cannula 1.0 06/06/20 00:00 97.4 70 24 141/70 (93) 100 06/05/20 22:30 80 16 97 06/05/20 20:15 71 146/78 06/05/20 20:00 1.0 06/05/20 20:00 97.7 71 22 146/78 (100) 100 06/05/20 20:00 72 06/05/20 20:00 Nasal Cannula 1.0 Nasal Cannula 1.0 06/05/20 19:50 97 Nasal Cannula 2.0 28 06/05/20 18:31 98.1 69 20 141/71 (94) 98 06/05/20 16:27 71 06/05/20 16:00 Nasal Cannula 1.0 Nasal Cannula 1.0 06/05/20 16:00 1.0 06/05/20 16:00 98.1 71 18 140/70 (93) 96 06/05/20 12:00 70 06/05/20 11:43 1.0 06/05/20 11:43 Nasal Cannula 1.0 Nasal Cannula 1.0 06/05/20 11:42 98.6 67 20 122/63 (82) 100 Intake and Output 06/05/20 06/06/20 19:00 07:00 Intake Total 1042.5 ml 1190 ml Output Total 1100 ml 950 ml Balance -57.5 ml 240 ml Intake Free Water 240 ml 225 ml IV Total 322.5 ml 525 ml Tube Feeding 480 ml 440 ml Output Urine Total 1100 ml 950 ml # Bowel Movements 1 3 Objective WDWN NAD reduced breath sounds bilaterally without rhonchi [id number] without MRG NABS nontender no CC mild edema nonfocal off BIPAP reduced LOC Laboratory Tests 06/06/20 05:49: White Blood Count 8.3, Red Blood Count 3.82L, Hemoglobin 12.3L, Hematocrit 37.0L , Mean Corpuscular Volume 97, Mean Corpuscular Hemoglobin 32.3H, Mean Corpuscular Hemoglobin Concent 33.3, Red Cell Distribution Width 16.0H, Platelet Count 139L, Mean Platelet Volume 12.3H, Neutrophils (%) (Auto) 63.7, Lymphocytes (%) (Auto) 22.2, Monocytes (%) (Auto) 10.0, Eosinophils (%) (Auto) 3.2H, Basophils (%) (Auto) 0.9, Sodium Level 142, Potassium Level 4.5, Chloride Level 108H, Carbon Dioxide Level 35H, Blood Urea Nitrogen 16, Creatinine 0.5L, Estimat Glomerular Filtration Rate > 60, Glucose Level 119H, Calcium Level 8.1L, Magnesium Level 2.1, Pro-B-Type Natriuretic Peptide 2116H Current Medications Medications (Trade) Dose Ordered Sig/Mayela Route PRN Reason Start Time Stop Time Status Last Admin Dose Admin Cefepime HCl 2 gm/ Dextrose 55 ml @ 110 mls/hr Q24H IVPB 06/02/20 17:00 06/09/20 16:59 06/05/20 16:37 Clonidine HCl (Catapres Tab) 0.1 mg Q4H PRN ORAL SBP >160 05/08/20 22:15 08/06/20 22:14 06/06/20 08:54 Dextrose/ Electrolytes 1,000 ml @ 75 mls/hr [id number] IV 06/03/20 22:00 07/03/20 21:59 06/06/20 03:49 Heparin Sodium (Porcine) (Heparin 5000 units/ml) 5,000 units EVERY 12 HOURS SUBQ 05/08/20 09:00 06/22/20 08:59 06/06/20 08:34 Levetiracetam (Keppra) 250 mg DAILY GT 05/19/20 15:11 06/18/20 15:10 06/06/20 08:08 Potassium Chloride (K-Dur) 20 meq DAILY GT 05/13/20 09:00 08/11/20 08:59 06/06/20 08:08 Assessment/Plan Assessment/Plan ASSESSMENT: Pulmonary congestion, respiratory failure, hypoxemia dementia, G-tube, seizure disorder, congestive heart failure, COPD sepsis, and acute TN. acute on chronic CO2 retention PLAN: oxygen and need for BIPAP reviewed; repeat ABG for CO2 retention. Breathing treatments and aspiration precautions. Monitor blood gases for change.keep negative. seizure medications. feeds and monitor residuals; DNR noted DVT prophylaxis remains guarded and at risk for decompensation d/w primary impression, plan, and exam edited and reviewed in detail care discussed with Attila Yuan MD Jun 06, 2020 09:35
--- NOTE | 2020-06-06 11:00 | Infectious Diseases Prog Note ---
Assessment/Plan Assessment/Plan antibiotics : cefepime 11 .,20 - A 1. Urinary tract infection with E. coli s/p rx 2. MRSA nasal colonization. 3. CHF. 4. COPD. 5. Seizures. 6. Dementia. 7. He is negative for COVID-19. 8. pneumonia 9. respiratory failure P 1. continue cefepime 2 more days 2. will follow up cultures Subjective ROS Limited/Unobtainable: Yes Allergies: Coded Allergies: PENICILLINS (Unverified Allergy, Unknown, 08/11/19) Objective Last 24 Hour Vital Signs Date Time Temp Pulse Resp B/P (MAP) Pulse Ox O2 Delivery O2 Flow Rate FiO2 06/06/20 08:46 54 33 95 30 06/06/20 08:00 98.8 61 25 148/82 (104) 94 06/06/20 08:00 106 06/06/20 08:00 30 06/06/20 06:55 94 Nasal Cannula 2.0 28 06/06/20 04:00 97.3 71 24 155/68 (97) 94 06/06/20 04:00 69 06/06/20 04:00 Nasal Cannula 1.0 Nasal Cannula 1.0 06/06/20 04:00 1.0 06/06/20 00:00 69 06/06/20 00:00 Nasal Cannula 1.0 Nasal Cannula 1.0 06/06/20 00:00 97.4 70 24 141/70 (93) 100 06/05/20 22:30 80 16 97 06/05/20 20:15 71 146/78 06/05/20 20:00 1.0 06/05/20 20:00 97.7 71 22 146/78 (100) 100 06/05/20 20:00 72 06/05/20 20:00 Nasal Cannula 1.0 Nasal Cannula 1.0 06/05/20 19:50 97 Nasal Cannula 2.0 28 06/05/20 18:31 98.1 69 20 141/71 (94) 98 06/05/20 16:27 71 06/05/20 16:00 Nasal Cannula 1.0 Nasal Cannula 1.0 06/05/20 16:00 1.0 06/05/20 16:00 98.1 71 18 140/70 (93) 96 06/05/20 12:00 70 06/05/20 11:43 1.0 06/05/20 11:43 Nasal Cannula 1.0 Nasal Cannula 1.0 06/05/20 11:42 98.6 67 20 122/63 (82) 100 Height (Feet): 5 Height (Inches): 6.00 Weight (Pounds): 137 HEENT: other - on bipap Respiratory/Chest: lungs clear Cardiovascular: normal rate, regular rhythm, no gallop/murmur Abdomen: soft, non tender, other - GT Extremities: no edema Laboratory Tests Test 06/06/20 05:49 White Blood Count 8.3 K/UL (4.8-10.8) Red Blood Count 3.82 M/UL (4.70-6.10) L Hemoglobin 12.3 G/DL (14.2-18.0) L Hematocrit 37.0 % (42.0-52.0) L Mean Corpuscular Volume 97 FL (80-99) Mean Corpuscular Hemoglobin 32.3 PG (27.0-31.0) H Mean Corpuscular Hemoglobin Concent 33.3 G/DL (32.0-36.0) Red Cell Distribution Width 16.0 % (11.6-14.8) H Platelet Count 139 K/UL (150-450) L Mean Platelet Volume 12.3 FL (6.5-10.1) H Neutrophils (%) (Auto) 63.7 % (45.0-75.0) Lymphocytes (%) (Auto) 22.2 % (20.0-45.0) Monocytes (%) (Auto) 10.0 % (1.0-10.0) Eosinophils (%) (Auto) 3.2 % (0.0-3.0) H Basophils (%) (Auto) 0.9 % (0.0-2.0) Sodium Level 142 MMOL/L (136-145) Potassium Level 4.5 MMOL/L (3.5-5.1) Chloride Level 108 MMOL/L (98-107) H Carbon Dioxide Level 35 MMOL/L (21-32) H Blood Urea Nitrogen 16 mg/dL (7-18) Creatinine 0.5 MG/DL (0.55-1.30) L Estimat Glomerular Filtration Rate > 60 mL/min (>60) Glucose Level 119 MG/DL (74-106) H Calcium Level 8.1 MG/DL (8.5-10.1) L Magnesium Level 2.1 MG/DL (1.8-2.4) Pro-B-Type Natriuretic Peptide 2116 pg/mL (0-125) H Current Medications Medications (Trade) Dose Ordered Sig/Mayela Route PRN Reason Start Time Stop Time Status Last Admin Dose Admin Cefepime HCl 2 gm/ Dextrose 55 ml @ 110 mls/hr Q24H IVPB 06/02/20 17:00 06/09/20 16:59 06/05/20 16:37 Clonidine HCl (Catapres Tab) 0.1 mg Q4H PRN ORAL SBP >160 05/08/20 22:15 08/06/20 22:14 Dextrose/ Electrolytes 1,000 ml @ 75 mls/hr [id number] IV 06/03/20 22:00 07/03/20 21:59 06/06/20 03:49 Heparin Sodium (Porcine) (Heparin 5000 units/ml) 5,000 units EVERY 12 HOURS SUBQ 05/08/20 09:00 06/22/20 08:59 06/06/20 08:34 Levetiracetam (Keppra) 250 mg DAILY GT 05/19/20 15:11 06/18/20 15:10 06/06/20 08:08 Potassium Chloride (K-Dur) 20 meq DAILY GT 05/13/20 09:00 08/11/20 08:59 06/06/20 08:08 Josué Light MD Jun 06, 2020 11:00
[2020-06-06 11:57] VITALS: BP 150/68
--- NOTE | 2020-06-06 13:37 | Surgery Progress Note ---
Surgery Progress Note Subjective Symptoms: improved, tolerating diet, passing flatus, BM Objective Last 24 Hour Vital Signs Date Time Temp Pulse Resp B/P (MAP) Pulse Ox O2 Delivery O2 Flow Rate FiO2 06/06/20 12:00 81 06/06/20 12:00 30 06/06/20 11:57 97.3 71 23 150/68 (95) 95 06/06/20 10:55 56 28 98 30 06/06/20 09:00 Bi-pap Bi-pap 06/06/20 08:46 54 33 95 30 06/06/20 08:00 98.8 61 25 148/82 (104) 94 06/06/20 08:00 106 06/06/20 08:00 30 06/06/20 06:55 94 Nasal Cannula 2.0 28 06/06/20 04:00 97.3 71 24 155/68 (97) 94 06/06/20 04:00 69 06/06/20 04:00 Nasal Cannula 1.0 Nasal Cannula 1.0 06/06/20 04:00 1.0 06/06/20 00:00 69 06/06/20 00:00 Nasal Cannula 1.0 Nasal Cannula 1.0 06/06/20 00:00 97.4 70 24 141/70 (93) 100 06/05/20 22:30 80 16 97 06/05/20 20:15 71 146/78 06/05/20 20:00 1.0 06/05/20 20:00 97.7 71 22 146/78 (100) 100 06/05/20 20:00 72 06/05/20 20:00 Nasal Cannula 1.0 Nasal Cannula 1.0 06/05/20 19:50 97 Nasal Cannula 2.0 28 06/05/20 18:31 98.1 69 20 141/71 (94) 98 06/05/20 16:27 71 06/05/20 16:00 Nasal Cannula 1.0 Nasal Cannula 1.0 06/05/20 16:00 1.0 06/05/20 16:00 98.1 71 18 140/70 (93) 96 I&O Intake and Output 06/05/20 06/06/20 19:00 07:00 Intake Total 1042.5 ml 1190 ml Output Total 1100 ml 950 ml Balance -57.5 ml 240 ml Intake Free Water 240 ml 225 ml IV Total 322.5 ml 525 ml Tube Feeding 480 ml 440 ml Output Urine Total 1100 ml 950 ml # Bowel Movements 1 3 Dressing: saturated Cardiovascular: RSR Respiratory: decreased breath sounds Abdomen: soft, non-tender, present bowel sounds Extremities: no tenderness, no cyanosis Laboratory Tests Test 06/06/20 05:49 White Blood Count 8.3 K/UL (4.8-10.8) Red Blood Count 3.82 M/UL (4.70-6.10) L Hemoglobin 12.3 G/DL (14.2-18.0) L Hematocrit 37.0 % (42.0-52.0) L Mean Corpuscular Volume 97 FL (80-99) Mean Corpuscular Hemoglobin 32.3 PG (27.0-31.0) H Mean Corpuscular Hemoglobin Concent 33.3 G/DL (32.0-36.0) Red Cell Distribution Width 16.0 % (11.6-14.8) H Platelet Count 139 K/UL (150-450) L Mean Platelet Volume 12.3 FL (6.5-10.1) H Neutrophils (%) (Auto) 63.7 % (45.0-75.0) Lymphocytes (%) (Auto) 22.2 % (20.0-45.0) Monocytes (%) (Auto) 10.0 % (1.0-10.0) Eosinophils (%) (Auto) 3.2 % (0.0-3.0) H Basophils (%) (Auto) 0.9 % (0.0-2.0) Sodium Level 142 MMOL/L (136-145) Potassium Level 4.5 MMOL/L (3.5-5.1) Chloride Level 108 MMOL/L (98-107) H Carbon Dioxide Level 35 MMOL/L (21-32) H Blood Urea Nitrogen 16 mg/dL (7-18) Creatinine 0.5 MG/DL (0.55-1.30) L Estimat Glomerular Filtration Rate > 60 mL/min (>60) Glucose Level 119 MG/DL (74-106) H Calcium Level 8.1 MG/DL (8.5-10.1) L Magnesium Level 2.1 MG/DL (1.8-2.4) Pro-B-Type Natriuretic Peptide 2116 pg/mL (0-125) H Plan Problems: (1) Deep tissue injury Assessment & Plan: Patient identified to have bilateral heel concerns for potential developing DTI. Soft boggy no fluid collection no acute injury at this time. Patient identified to have sacral erythema and skin changes with concerns for developing deep tissue injury as well. No open areas. No fluid collections no fluctuance no drainage. On the scrotum patient is identified to have edema erythema and some abrasion along with incontinence associated dermatitis in the area. Patient identified to have abrasion to the nasal brim secondary to a facemask placement. Patient is chronically ill elderly and malnourished. Wound evaluated and care plan initiated. Treatment plan Apply skin protectant to the nasal bridge followed by foam dressing prior to facemask placement. Patient currently requires oxygen supplementation and therefore important to ensure receiving such along with protection of underlying epidermis. Apply OPTi foam to heels change every 3 days offload pressure with pillows Apply OPTi foam to sacral area monitor for incontinence change accordingly every 3 days and as needed saturation. Soft towel under scrotum. Continue with respiratory supportive care Turn every 2 hours Offload pressure with pillows Continue tube feeds nutritional optimization we will follow with recommendations thank you for let me participate patient's care (2) Dementia with behavioral problem (3) UTI (urinary tract infection) (4) Elevated troponin I level (5) AMS (altered mental status) (6) Dysphagia Assessment & Plan: DAILY ESTIMATED NEEDS: Needs based on Pulmonary, cardiac, 62kg 25-30 kcals/kg 6092-9032 total kcals 1-1.5 g protein/kg 62-93 g total protein 25-30 mL/kg 1078-3535 total fluid mLs NUTRITION DIAGNOSIS: Swallowing difficulty r/t dysphagia as evidenced by pt is PEG dep, currently on continuous BIPAP. CURRENT TF: Glucerna 1.5 @ 40ml/hr ENTERAL NUTRITION RECOMMENDATIONS: Glucerna 1.5 goal of 45ml/hr x 24 hrs to provide 1080ml, 1620 kcal, 89g pro, 820ml free water * Maintain carb controlled TF of Glucerna 1.5 while CO2 critically elevated * As medically appropriate, increase goal rate to 45ml/hr x 24 hrs to better meet nutritional needs. * HOB over 30 degrees/ water flush per MD ADDITIONAL RECOMMENDATIONS: 1) Monitor BIPAP usage, safety of GT feeds -> continuous BIPAP at this time 2) Lytes daily, replete as needed Current TF Glucerna 1.5 @goal of 40ml/hr provides 2419mg K/day 3) Calibrated bed scale wts (Bed scale shows uptrend: 65kg-> 71kg) 4) Rec HgA1C for eval of BG control 5) F/up w/ WC eval: Continue MVI and Vit C (7) Seizure (8) NSTEMI (non-ST elevated myocardial infarction) (9) Respiratory insufficiency Assessment & Plan: constant required bipap ? trach dnr/dni discussed with pcp and pulm Duplex Doppler interrogation of the veins in both upper extremity is performed from the internal jugular veins to the radial and ulnar veins. No thrombus is identified. Basilic and cephalic veins are also patent bilaterally. There is mild subcutaneous edema of the right upper extremity. IMPRESSION: No evidence of deep venous thrombosis involving the upper extremities. Benitez Mayorga Jun 06, 2020 13:37
--- NOTE | 2020-06-06 15:13 | General Progress Note ---
Subjective ROS Limited/Unobtainable: No Constitutional: Reports: malaise, weakness HEENT: Reports: no symptoms Cardiovascular: Reports: no symptoms Respiratory: Reports: cough, shortness of breath Gastrointestinal/Abdominal: Reports: no symptoms Genitourinary: Reports: no symptoms Neurologic/Psychiatric: Reports: pre-existing deficit, seizure Endocrine: Reports: no symptoms Hematologic/Lymphatic: Reports: anemia Allergies: Coded Allergies: PENICILLINS (Unverified Allergy, Unknown, 08/11/19) All Systems: reviewed and negative except above Subjective placed back on bipap this am due to lethargy and resp distress. currently awake and alert. no fever or chills. appears comfortable on bipap. Objective Last 24 Hour Vital Signs Date Time Temp Pulse Resp B/P (MAP) Pulse Ox O2 Delivery O2 Flow Rate FiO2 06/06/20 12:00 81 06/06/20 12:00 30 06/06/20 11:57 97.3 71 23 150/68 (95) 95 06/06/20 10:55 56 28 98 30 06/06/20 09:00 Bi-pap Bi-pap 06/06/20 08:46 54 33 95 30 06/06/20 08:00 98.8 61 25 148/82 (104) 94 06/06/20 08:00 106 06/06/20 08:00 30 06/06/20 06:55 94 Nasal Cannula 2.0 28 06/06/20 04:00 97.3 71 24 155/68 (97) 94 06/06/20 04:00 69 06/06/20 04:00 Nasal Cannula 1.0 Nasal Cannula 1.0 06/06/20 04:00 1.0 06/06/20 00:00 69 06/06/20 00:00 Nasal Cannula 1.0 Nasal Cannula 1.0 06/06/20 00:00 97.4 70 24 141/70 (93) 100 06/05/20 22:30 80 16 97 06/05/20 20:15 71 146/78 06/05/20 20:00 1.0 06/05/20 20:00 97.7 71 22 146/78 (100) 100 06/05/20 20:00 72 06/05/20 20:00 Nasal Cannula 1.0 Nasal Cannula 1.0 06/05/20 19:50 97 Nasal Cannula 2.0 28 06/05/20 18:31 98.1 69 20 141/71 (94) 98 06/05/20 16:27 71 06/05/20 16:00 Nasal Cannula 1.0 Nasal Cannula 1.0 06/05/20 16:00 1.0 06/05/20 16:00 98.1 71 18 140/70 (93) 96 Intake and Output 06/05/20 06/06/20 19:00 07:00 Intake Total 1042.5 ml 1190 ml Output Total 1100 ml 950 ml Balance -57.5 ml 240 ml Intake Free Water 240 ml 225 ml IV Total 322.5 ml 525 ml Tube Feeding 480 ml 440 ml Output Urine Total 1100 ml 950 ml # Bowel Movements 1 3 Laboratory Tests 06/06/20 05:49: White Blood Count 8.3, Red Blood Count 3.82L, Hemoglobin 12.3L, Hematocrit 37.0L , Mean Corpuscular Volume 97, Mean Corpuscular Hemoglobin 32.3H, Mean Corpuscular Hemoglobin Concent 33.3, Red Cell Distribution Width 16.0H, Platelet Count 139L, Mean Platelet Volume 12.3H, Neutrophils (%) (Auto) 63.7, Lymphocytes (%) (Auto) 22.2, Monocytes (%) (Auto) 10.0, Eosinophils (%) (Auto) 3.2H, Ba sophils (%) (Auto) 0.9, Sodium Level 142, Potassium Level 4.5, Chloride Level 108H, Carbon Dioxide Level 35H, Blood Urea Nitrogen 16, Creatinine 0.5L, Estimat Glomerular Filtration Rate > 60, Glucose Level 119H, Calcium Level 8.1L, Magnesium Level 2.1, Pro-B-Type Natriuretic Peptide 2116H Height (Feet): 5 Height (Inches): 6.00 Weight (Pounds): 137 Objective General Appearance: WD/WN, alert, confused. on bipap EENT: normal ENT inspection Neck: normal alignment Cardiovascular: normal rate Respiratory/Chest: chest wall non-tender, lungs clear, normal breath sounds Abdomen: normal bowel sounds, non tender, soft, no organomegaly Edema: no edema noted Arm (L), no edema noted Arm (R) Neurologic: alert, disoriented Assessment/Plan Problem List: (1) Seizure ICD Codes: R56.9 - Unspecified convulsions SNOMED: 16171545 (2) Dysphagia ICD Codes: R13.10 - Dysphagia, unspecified SNOMED: 71729315, 784360574 (3) UTI (urinary tract infection) ICD Codes: N39.0 - Urinary tract infection, site not specified SNOMED: 51479387 (4) Elevated troponin I level ICD Codes: R77.8 - Other specified abnormalities of plasma proteins SNOMED: 647919023 (5) AMS (altered mental status) ICD Codes: R41.82 - Altered mental status, unspecified SNOMED: 131377556 (6) NSTEMI (non-ST elevated myocardial infarction) ICD Codes: I21.4 - Non-ST elevation (NSTEMI) myocardial infarction SNOMED: 22485558 Status: stable Assessment/Plan: continuous bipap as needed need to wean to [facility] monitor abg tube feeds monitor residuals monitor for vomiting sz rx monitor labs anxiolytics as needed o2 resp rx check cxr dvt/stress ulcer prophylaxis. ivf as needed snf able to accept pt on noctural bipap but not continuous family deciding on snf placement Jorge Kee MD Jun 06, 2020 15:13
[2020-06-06 16:00] VITALS: BP 153/79
--- NOTE | 2020-06-06 16:55 | Diagnostic Imaging Report ---
Indication: Shortness of breath Technique: One view of the chest Comparison: 06/01/2020 Findings: Slightly better inspiration currently. There is persistent blunting of left costophrenic sulcus but otherwise overall decreased opacification of the left lung base.. There is questionably some hazy left perihilar infiltrate. The right lung pleural space are clear. Previously demonstrated right costophrenic angle blunting is no longer evident Impression: Decreased left basilar infiltrate and pleural fluid Resolved right pleural effusion Questionable new hazy left perihilar infiltrate
[2020-06-06] MEDS: Cefepime HCl 2 GM in D5W 55 ML IVPB SCH (17:46)
[2020-06-06 20:00] VITALS: BP 158/77
[2020-06-07] VITALS: BP 157/89
--- NOTE | 2020-06-07 00:38 | Cardiology Progress Note ---
Subjective DATE OF SERVICE: Jun 06, 2020 Remains on bipap at [facility]. Comfortable on O2 by n/c during day. (06/04/20) 7.46/40/147 CXR (06/01) left lung consolidation. Mild CHF BP remains well controlled. BNP increased to 2100 range. Monitor: sinus with occ run of VTach. Objective Last 24 Hour Vital Signs Date Time Temp Pulse Resp B/P (MAP) Pulse Ox O2 Delivery O2 Flow Rate FiO2 06/07/20 00:00 98.6 84 22 157/89 (111) 97 06/06/20 22:44 74 27 97 30 06/06/20 21:00 Bi-pap Bi-pap 06/06/20 20:00 71 06/06/20 20:00 30 06/06/20 20:00 98.4 70 20 158/77 (104) 98 06/06/20 19:14 69 24 98 30 06/06/20 19:13 98 Bi-Pap 30 06/06/20 16:00 86 06/06/20 16:00 98.3 73 20 153/79 (103) 98 06/06/20 16:00 30 06/06/20 12:00 81 06/06/20 12:00 30 06/06/20 11:57 97.3 71 23 150/68 (95) 95 06/06/20 10:55 56 28 98 30 06/06/20 09:00 Bi-pap Bi-pap 06/06/20 08:46 54 33 95 30 06/06/20 08:00 98.8 61 25 148/82 (104) 94 06/06/20 08:00 106 06/06/20 08:00 30 06/06/20 06:55 94 Nasal Cannula 2.0 28 06/06/20 04:00 97.3 71 24 155/68 (97) 94 06/06/20 04:00 69 06/06/20 04:00 Nasal Cannula 1.0 Nasal Cannula 1.0 06/06/20 04:00 1.0 ROS: unchanged from my evaluation of 05/06/20 HEENT: normal ENT inspection, other - bipap mask RHYTHM: NSR, VT LUNGS: diminished breath sounds, left-sided rhonchi CARDIAC: normal rate, regular rhythm, normal S1 and S2 ABDOMEN: non tender, soft, G-Tube intact EXTREMITIES: non-pitting, No edema Laboratory Tests Test 06/06/20 05:49 White Blood Count 8.3 K/UL (4.8-10.8) Red Blood Count 3.82 M/UL (4.70-6.10) L Hemoglobin 12.3 G/DL (14.2-18.0) L Hematocrit 37.0 % (42.0-52.0) L Mean Corpuscular Volume 97 FL (80-99) Mean Corpuscular Hemoglobin 32.3 PG (27.0-31.0) H Mean Corpuscular Hemoglobin Concent 33.3 G/DL (32.0-36.0) Red Cell Distribution Width 16.0 % (11.6-14.8) H Platelet Count 139 K/UL (150-450) L Mean Platelet Volume 12.3 FL (6.5-10.1) H Neutrophils (%) (Auto) 63.7 % (45.0-75.0) Lymphocytes (%) (Auto) 22.2 % (20.0-45.0) Monocytes (%) (Auto) 10.0 % (1.0-10.0) Eosinophils (%) (Auto) 3.2 % (0.0-3.0) H Basophils (%) (Auto) 0.9 % (0.0-2.0) Sodium Level 142 MMOL/L (136-145) Potassium Level 4.5 MMOL/L (3.5-5.1) Chloride Level 108 MMOL/L (98-107) H Carbon Dioxide Level 35 MMOL/L (21-32) H Blood Urea Nitrogen 16 mg/dL (7-18) Creatinine 0.5 MG/DL (0.55-1.30) L Estimat Glomerular Filtration Rate > 60 mL/min (>60) Glucose Level 119 MG/DL (74-106) H Calcium Level 8.1 MG/DL (8.5-10.1) L Magnesium Level 2.1 MG/DL (1.8-2.4) Pro-B-Type Natriuretic Peptide 2116 pg/mL (0-125) H Assessment/Plan Assessment/Plan E.coli UTI Sepsis Metabolic and toxic encephalopathies Cerebrovascular disease with dementia Acute myocardial ischemia and possible NSTEMI Dehydration/hypernatremia Hypertension/HHD Ac/chronic respiratory acidosis now compensated Respiratory failure improving, but still requiring bipap support Ac diastolic CHF; BNP relatively unchanged. Metabolic acidosis Pleural effusions Ac/chr renal failure with azotemia Paroxysmal ventricular tachycardia hypokalemia Continue anti-anginal regimen including nitrates. Maintain current antiHTN regimen. Antimicrobial therapy per ID. Maintain adequate free water per Gtube. No current need for diuretics; DC IVF Bipap support-taper to nighttime only. Real Magana MD Jun 07, 2020 00:38
[2020-06-07 04:00] VITALS: BP 156/99
[2020-06-07 08:00] VITALS: BP 146/90
[2020-06-07] MEDS: Heparin 5000 units/ml inj SUBQ SCH ×2 (08:28→20:57)
[2020-06-07] MEDS: levETIRAcetam 500mg/5ml Liquid GT SCH (08:29)
--- NOTE | 2020-06-07 11:23 | Pulmonology Progress Note ---
Subjective ROS Limited/Unobtainable: No Constitutional: Denies: fever Allergies: Coded Allergies: PENICILLINS (Unverified Allergy, Unknown, 08/11/19) All Systems: reviewed and negative except above Objective Last 24 Hour Vital Signs Date Time Temp Pulse Resp B/P (MAP) Pulse Ox O2 Delivery O2 Flow Rate FiO2 06/07/20 09:00 Bi-pap 3.0 Nasal Cannula 06/07/20 08:00 3.0 06/07/20 08:00 98.6 94 20 146/90 (108) 97 06/07/20 08:00 95 06/07/20 04:00 98.3 105 22 156/99 (118) 97 06/07/20 04:00 98 06/07/20 04:00 30 06/07/20 03:01 71 25 98 30 06/07/20 00:00 98.6 84 22 157/89 (111) 97 06/07/20 00:00 81 06/06/20 22:44 74 27 97 30 06/06/20 21:00 Bi-pap Bi-pap 06/06/20 20:00 71 06/06/20 20:00 30 06/06/20 20:00 98.4 70 20 158/77 (104) 98 06/06/20 19:14 69 24 98 30 06/06/20 19:13 98 Bi-Pap 30 06/06/20 16:00 86 06/06/20 16:00 98.3 73 20 153/79 (103) 98 06/06/20 16:00 30 06/06/20 12:00 81 06/06/20 12:00 30 06/06/20 11:57 97.3 71 23 150/68 (95) 95 Intake and Output 06/06/20 06/07/20 19:00 07:00 Intake Total 265 ml 150 ml Output Total 850 ml Balance -585 ml 150 ml Intake Free Water 225 ml 150 ml Tube Feeding 40 ml 0 ml Output Urine Total 850 ml Current Medications Medications (Trade) Dose Ordered Sig/Mayela Route PRN Reason Start Time Stop Time Status Last Admin Dose Admin Cefepime HCl 2 gm/ Dextrose 55 ml @ 110 mls/hr Q24H IVPB 06/02/20 17:00 06/09/20 16:59 06/06/20 17:46 Clonidine HCl (Catapres Tab) 0.1 mg Q4H PRN ORAL SBP >160 05/08/20 22:15 08/06/20 22:14 Heparin Sodium (Porcine) (Heparin 5000 units/ml) 5,000 units EVERY 12 HOURS SUBQ 05/08/20 09:00 06/22/20 08:59 06/07/20 08:28 Levetiracetam (Keppra) 250 mg DAILY GT 05/19/20 15:11 06/18/20 15:10 06/07/20 08:29 Potassium Chloride (K-Dur) 20 meq DAILY GT 05/13/20 09:00 08/11/20 08:59 06/07/20 08:28 Assessment/Plan Assessment/Plan Pulmonary Progress Note Subjective ROS Limited/Unobtainable: Yes Constitutional: Denies: fever Allergies: Coded Allergies: PENICILLINS (Unverified Allergy, Unknown, 08/11/19) All Systems: reviewed and negative except above Subjective care noted BIPAP PRN NC when not on BiPAP Objective Vital Signs Noted Objective WDWN NAD reduced breath sounds bilaterally without rhonchi [id number] without MRG NABS nontender no CC mild edema nonfocal off BIPAP reduced LOC Laboratory Tests noted Medications noted Assessment/Plan Assessment/Plan ASSESSMENT: Pulmonary congestion, respiratory failure, hypoxemia dementia, G-tube, seizure disorder, congestive heart failure, COPD sepsis, and acute CO. acute on chronic CO2 retention PLAN: oxygen and need for BIPAP reviewed; repeat ABG for CO2 retention. Breathing treatments and aspiration precautions. Monitor blood gases for change.keep negative. seizure medications. feeds and monitor residuals; DNR noted DVT prophylaxis remains guarded and at risk for decompensation d/w primary impression, plan, and exam edited and reviewed in detail care discussed with Rela Ambrocio MD Jun 07, 2020 11:23
[2020-06-07 12:00] VITALS: BP 148/79
--- NOTE | 2020-06-07 12:28 | General Progress Note ---
Subjective ROS Limited/Unobtainable: No Constitutional: Reports: malaise, weakness HEENT: Reports: no symptoms Cardiovascular: Reports: no symptoms Respiratory: Reports: cough, shortness of breath Gastrointestinal/Abdominal: Reports: no symptoms Genitourinary: Reports: no symptoms Neurologic/Psychiatric: Reports: pre-existing deficit, seizure Endocrine: Reports: no symptoms Hematologic/Lymphatic: Reports: anemia Allergies: Coded Allergies: PENICILLINS (Unverified Allergy, Unknown, 08/11/19) All Systems: reviewed and negative except above Subjective no events. currently being switched to nasal cannula. no fevers or chills. no sob. tolerating tube feeds. no szs. Objective Last 24 Hour Vital Signs Date Time Temp Pulse Resp B/P (MAP) Pulse Ox O2 Delivery O2 Flow Rate FiO2 06/07/20 12:00 97.9 77 22 148/79 (102) 98 78 06/07/20 12:00 3.0 06/07/20 09:00 Bi-pap 3.0 Nasal Cannula 06/07/20 08:00 3.0 06/07/20 08:00 98.6 94 20 146/90 (108) 97 06/07/20 08:00 95 06/07/20 04:00 98.3 105 22 156/99 (118) 97 06/07/20 04:00 98 06/07/20 04:00 30 06/07/20 03:01 71 25 98 30 06/07/20 00:00 98.6 84 22 157/89 (111) 97 06/07/20 00:00 81 06/06/20 22:44 74 27 97 30 06/06/20 21:00 Bi-pap Bi-pap 06/06/20 20:00 71 06/06/20 20:00 30 06/06/20 20:00 98.4 70 20 158/77 (104) 98 06/06/20 19:14 69 24 98 30 06/06/20 19:13 98 Bi-Pap 30 06/06/20 16:00 86 06/06/20 16:00 98.3 73 20 153/79 (103) 98 06/06/20 16:00 30 Intake and Output 06/06/20 06/07/20 19:00 07:00 Intake Total 265 ml 150 ml Output Total 850 ml Balance -585 ml 150 ml Intake Free Water 225 ml 150 ml Tube Feeding 40 ml 0 ml Output Urine Total 850 ml Height (Feet): 5 Height (Inches): 6.00 Weight (Pounds): 137 Objective General Appearance: WD/WN, alert, confused. on bipap EENT: normal ENT inspection Neck: normal alignment Cardiovascular: normal rate Respiratory/Chest: chest wall non-tender, lungs clear, normal breath sounds Abdomen: normal bowel sounds, non tender, soft, no organomegaly Edema: no edema noted Arm (L), no edema noted Arm (R) Neurologic: alert, disoriented Assessment/Plan Problem List: (1) Seizure ICD Codes: R56.9 - Unspecified convulsions SNOMED: 92569387 (2) Dysphagia ICD Codes: R13.10 - Dysphagia, unspecified SNOMED: 65606926, 716949520 (3) UTI (urinary tract infection) ICD Codes: N39.0 - Urinary tract infection, site not specified SNOMED: 55357847 (4) Elevated troponin I level ICD Codes: R77.8 - Other specified abnormalities of plasma proteins SNOMED: 657826913 (5) AMS (altered mental status) ICD Codes: R41.82 - Altered mental status, unspecified SNOMED: 386973065 (6) NSTEMI (non-ST elevated myocardial infarction) ICD Codes: I21.4 - Non-ST elevation (NSTEMI) myocardial infarction SNOMED: 20897132 Status: stable Assessment/Plan: continuous bipap as needed need to wean to Qhs monitor abg tube feeds monitor residuals sz rx monitor labs anxiolytics as needed o2 resp rx dvt/stress ulcer prophylaxis. snf able to accept pt on noctural bipap but not continuous family deciding on snf placement limited options per case management due to exhausted snf medicare days Jorge Kee MD Jun 07, 2020 12:28
[2020-06-07] MEDS ORDERED: NS 275ml ONE (13:32)
--- NOTE | 2020-06-07 14:36 | Surgery Progress Note ---
Surgery Progress Note Subjective Additional Comments no acute events pending placement Objective Last 24 Hour Vital Signs Date Time Temp Pulse Resp B/P (MAP) Pulse Ox O2 Delivery O2 Flow Rate FiO2 06/07/20 12:00 97.9 77 22 148/79 (102) 98 78 06/07/20 12:00 3.0 06/07/20 12:00 74 06/07/20 09:00 Bi-pap 3.0 Nasal Cannula 06/07/20 08:00 3.0 06/07/20 08:00 98.6 94 20 146/90 (108) 97 06/07/20 08:00 95 06/07/20 04:00 98.3 105 22 156/99 (118) 97 06/07/20 04:00 98 06/07/20 04:00 30 06/07/20 03:01 71 25 98 30 06/07/20 00:00 98.6 84 22 157/89 (111) 97 06/07/20 00:00 81 06/06/20 22:44 74 27 97 30 06/06/20 21:00 Bi-pap Bi-pap 06/06/20 20:00 71 06/06/20 20:00 30 06/06/20 20:00 98.4 70 20 158/77 (104) 98 06/06/20 19:14 69 24 98 30 06/06/20 19:13 98 Bi-Pap 30 06/06/20 16:00 86 06/06/20 16:00 98.3 73 20 153/79 (103) 98 06/06/20 16:00 30 I&O l Intake and Output 06/06/20 06/07/20 19:00 07:00 Intake Total 265 ml 150 ml Output Total 850 ml Balance -585 ml 150 ml Intake Free Water 225 ml 150 ml Tube Feeding 40 ml 0 ml Output Urine Total 850 ml Dressing: saturated Cardiovascular: RSR Respiratory: decreased breath sounds Abdomen: non-tender, present bowel sounds Plan Problems: (1) Deep tissue injury Assessment & Plan: Patient identified to have bilateral heel concerns for potential developing DTI. Soft boggy no fluid collection no acute injury at this time. Patient identified to have sacral erythema and skin changes with concerns for developing deep tissue injury as well. No open areas. No fluid collections no fluctuance no drainage. On the scrotum patient is identified to have edema erythema and some abrasion along with incontinence associated dermati tis in the area. Patient identified to have abrasion to the nasal brim secondary to a facemask placement. Patient is chronically ill elderly and malnourished. Wound evaluated and care plan initiated. Treatment plan Apply skin protectant to the nasal bridge followed by foam dressing prior to facemask placement. Patient currently requires oxygen supplementation and therefore important to ensure receiving such along with protection of underlying epidermis. Apply OPTi foam to heels change every 3 days offload pressure with pillows Apply OPTi foam to sacral area monitor for incontinence change accordingly every 3 days and as needed saturation. Soft towel under scrotum. Continue with respiratory supportive care Turn every 2 hours Offload pressure with pillows Continue tube feeds nutritional optimization we will follow with recommendations thank you for let me participate patient's care (2) Dementia with behavioral problem (3) UTI (urinary tract infection) (4) Elevated troponin I level (5) AMS (altered mental status) (6) Dysphagia Assessment & Plan: DAILY ESTIMATED NEEDS: Needs based on Pulmonary, cardiac, 62kg 25-30 kcals/kg 0407-9340 total kcals 1-1.5 g protein/kg 62-93 g total protein 25-30 mL/kg 2920-3347 total fluid mLs NUTRITION DIAGNOSIS: Swallowing difficulty r/t dysphagia as evidenced by pt is PEG dep, currently on continuous BIPAP. CURRENT TF: Glucerna 1.5 @ 40ml/hr ENTERAL NUTRITION RECOMMENDATIONS: Glucerna 1.5 goal of 45ml/hr x 24 hrs to provide 1080ml, 1620 kcal, 89g pro, 820ml free water * Maintain carb controlled TF of Glucerna 1.5 while CO2 critically elevated * As medically appropriate, increase goal rate to 45ml/hr x 24 hrs to better meet nutritional needs. * HOB over 30 degrees/ water flush per MD ADDITIONAL RECOMMENDATIONS: 1) Monitor BIPAP usage, safety of GT feeds -> continuous BIPAP at this time 2) Lytes daily, replete as needed Current TF Glucerna 1.5 @goal of 40ml/hr provides 2419mg K/day 3) Calibrated bed scale wts (Bed scale shows uptrend: 65kg-> 71kg) 4) Rec HgA1C for eval of BG control 5) F/up w/ WC eval: Continue MVI and Vit C (7) Seizure (8) NSTEMI (non-ST elevated myocardial infarction) (9) Respiratory insufficiency Assessment & Plan: constant required bipap ? trach dnr/dni discussed with pcp and pulm Duplex Doppler interrogation of the veins in both upper extremity is performed from the internal jugular veins to the radial and ulnar veins. No thrombus is id entified. Basilic and cephalic veins are also patent bilaterally. There is mild subcutaneous edema of the right upper extremity. IMPRESSION: No evidence of deep venous thrombosis involving the upper extremities. Benitez Mayorga Jun 07, 2020 14:36
[2020-06-07 16:00] VITALS: BP 154/73
[2020-06-07] MEDS: Cefepime HCl 2 GM in D5W 55 ML IVPB SCH (16:31)
--- NOTE | 2020-06-07 17:13 | Infectious Diseases Prog Note ---
Assessment/Plan Assessment/Plan A: 1. Pneumonia 2. MRSA nasal colonization. 3. CHF. 4. COPD. 5. Seizures. 6. Dementia. 7. He is negative for COVID-19. 8. Hypercapnic respiratory failure 9. Pleural effusion 10. Leukocytosis resolved PLAN: 1. Continue Cefepime X 1 day Subjective ROS Limited/Unobtainable: Yes Constitutional: Reports: other - looks better Allergies: Coded Allergies: PENICILLINS (Unverified Allergy, Unknown, 08/11/19) Objective Last 24 Hour Vital Signs Date Time Temp Pulse Resp B/P (MAP) Pulse Ox O2 Delivery O2 Flow Rate FiO2 06/07/20 16:00 3.0 06/07/20 16:00 73 06/07/20 16:00 98.1 72 20 154/73 (100) 98 72 06/07/20 12:00 97.9 77 22 148/79 (102) 98 78 06/07/20 12:00 3.0 06/07/20 12:00 74 06/07/20 09:00 Bi-pap 3.0 Nasal Cannula 06/07/20 08:00 3.0 06/07/20 08:00 98.6 94 20 146/90 (108) 97 06/07/20 08:00 95 06/07/20 04:00 98.3 105 22 156/99 (118) 97 06/07/20 04:00 98 06/07/20 04:00 30 06/07/20 03:01 71 25 98 30 06/07/20 00:00 98.6 84 22 157/89 (111) 97 06/07/20 00:00 81 06/06/20 22:44 74 27 97 30 06/06/20 21:00 Bi-pap Bi-pap 06/06/20 20:00 71 06/06/20 20:00 30 06/06/20 20:00 98.4 70 20 158/77 (104) 98 06/06/20 19:14 69 24 98 30 06/06/20 19:13 98 Bi-Pap 30 Height (Feet): 5 Height (Inches): 6.00 Weight (Pounds): 137 HEENT: mucous membranes moist Respiratory/Chest: lungs clear, other - oxygen by nasal cannula Cardiovascular: normal rate Abdomen: soft, non tender Extremities: no edema Neurologic/Psychiatric: alert, responsive, other - on restraint Current Medications Medications (Trade) Dose Ordered Sig/Mayela Route PRN Reason Start Time Stop Time Status Last Admin Dose Admin Cefepime HCl 2 gm/ Dextrose 55 ml @ 110 mls/hr Q24H IVPB 06/02/20 17:00 06/09/20 16:59 06/07/20 16:31 Clonidine HCl (Catapres Tab) 0.1 mg Q4H PRN ORAL SBP >160 05/08/20 22:15 08/06/20 22:14 Heparin Sodium (Porcine) (Heparin 5000 units/ml) 5,000 units EVERY 12 HOURS SUBQ 05/08/20 09:00 06/22/20 08:59 06/07/20 08:28 Levetiracetam (Keppra) 250 mg DAILY GT 05/19/20 15:11 06/18/20 15:10 06/07/20 08:29 Potassium Chloride (K-Dur) 20 meq DAILY GT 05/13/20 09:00 08/11/20 08:59 06/07/20 08:28 Luis Yanes MD Jun 07, 2020 17:13
[2020-06-07 20:00] VITALS: BP 145/71
[2020-06-08] VITALS: BP 156/88
--- NOTE | 2020-06-08 02:36 | Cardiology Progress Note ---
Subjective DATE OF SERVICE: Jun 07, 2020 Remains on bipap at [facility]. Comfortable on O2 by n/c during day. BP remains well controlled. BNP increased to 2100 range. Monitor: sinus with occ run of VTach. Objective Last 24 Hour Vital Signs Date Time Temp Pulse Resp B/P (MAP) Pulse Ox O2 Delivery O2 Flow Rate FiO2 06/08/20 00:00 97.5 78 20 156/88 (110) 100 78 06/07/20 23:03 47 25 98 30 06/07/20 21:00 Bi-pap 3.0 Nasal Cannula 06/07/20 20:00 3.0 06/07/20 20:00 72 06/07/20 20:00 97.5 73 19 145/71 (95) 98 73 06/07/20 19:10 95 Nasal Cannula 2.0 28 06/07/20 16:00 3.0 06/07/20 16:00 73 06/07/20 16:00 98.1 72 20 154/73 (100) 98 72 06/07/20 12:00 97.9 77 22 148/79 (102) 98 78 06/07/20 12:00 3.0 06/07/20 12:00 74 06/07/20 09:00 Bi-pap 3.0 Nasal Cannula 06/07/20 08:00 3.0 06/07/20 08:00 98.6 94 20 146/90 (108) 97 06/07/20 08:00 95 06/07/20 04:00 98.3 105 22 156/99 (118) 97 06/07/20 04:00 98 06/07/20 04:00 30 06/07/20 03:01 71 25 98 30 ROS: unchanged from my evaluation of 05/06/20 HEENT: normal ENT inspection, other - bipap mask RHYTHM: NSR, VT LUNGS: diminished breath sounds, left-sided rhonchi CARDIAC: normal rate, regular rhythm, normal S1 and S2 ABDOMEN: non tender, soft, G-Tube intact EXTREMITIES: non-pitting, No edema Assessment/Plan Assessment/Plan E.coli UTI Sepsis Metabolic and toxic encephalopathies Cerebrovascular disease with dementia Acute myocardial ischemia and possible NSTEMI Dehydration/hypernatremia Hypertension/HHD Ac/chronic respiratory acidosis now compensated Respiratory failure improving, but still requiring bipap support Ac diastolic CHF; BNP relatively unchanged. Metabolic acidosis Pleural effusions Ac/chr renal failure with azotemia Paroxysmal ventricular tachycardia hypokalemia Continue anti-anginal regimen including nitrates. Maintain current antiHTN regimen. Antimicrobial therapy per ID. Maintain adequate free water per Gtube. No current need for diuretics or IVF; trend BNP. Bipap support-taper to nighttime only. Recheck labs. Real Magana MD Jun 08, 2020 02:36
[2020-06-08 04:00] VITALS: BP 124/80
[2020-06-08 07:57] LABS: HEMATOCRIT 33.7 % (42.0-52.0); HEMOGLOBIN 11.6 G/DL (14.2-18.0); MEAN CORPUSCULAR VOLUME 94 FL (80-99); PLATELET COUNT 93 K/UL (150-450); RED BLOOD COUNT 3.58 M/UL (4.70-6.10); RED CELL DISTRIBUTION WIDTH 15.7 % (11.6-14.8); WHITE BLOOD COUNT 8.7 K/UL (4.8-10.8)
[2020-06-08 08:00] VITALS: BP 127/71
[2020-06-08 08:22] LABS: ANION GAP 0 mmol/L (5-15); BLOOD UREA NITROGEN 18 mg/dL (7-18); CALCIUM 8.3 MG/DL (8.5-10.1); CARBON DIOXIDE 36 MMOL/L (21-32); CHLORIDE 102 MMOL/L (98-107); CREATININE 0.3 MG/DL (0.55-1.30); POTASSIUM 4.6 MMOL/L (3.5-5.1); SODIUM 138 MMOL/L (136-145)
[2020-06-08] MEDS: levETIRAcetam 500mg/5ml Liquid GT SCH (09:56)
--- NOTE | 2020-06-08 11:21 | General Progress Note ---
Subjective ROS Limited/Unobtainable: No Constitutional: Reports: malaise, weakness HEENT: Reports: no symptoms Cardiovascular: Reports: no symptoms Respiratory: Reports: cough, shortness of breath, sputum Gastrointestinal/Abdominal: Reports: difficulty swallowing Allergies: Coded Allergies: PENICILLINS (Unverified Allergy, Unknown, 08/11/19) All Systems: reviewed and negative except above Subjective no events. currently being switched to nasal cannula. no fevers or chills. no sob. tolerating tube feeds. no szs. alert. no distress. just removed of bipap Objective Last 24 Hour Vital Signs Date Time Temp Pulse Resp B/P (MAP) Pulse Ox O2 Delivery O2 Flow Rate FiO2 06/08/20 09:00 Bi-pap 3.0 Nasal Cannula 06/08/20 08:00 97.5 98 20 127/71 (89) 97 97 06/08/20 08:00 99 06/08/20 08:00 3.0 06/08/20 07:51 94 Nasal Cannula 2.0 28 06/08/20 04:00 95 06/08/20 04:00 30 06/08/20 04:00 97.9 96 22 124/80 (95) 100 96 06/08/20 03:25 95 13 99 30 06/08/20 00:00 97.5 78 20 156/88 (110) 100 78 06/08/20 00:00 95 06/07/20 23:03 47 25 98 30 06/07/20 21:00 Bi-pap 3.0 Nasal Cannula 06/07/20 20:00 3.0 06/07/20 20:00 72 06/07/20 20:00 97.5 73 19 145/71 (95) 98 73 06/07/20 19:10 95 Nasal Cannula 2.0 28 06/07/20 16:00 3.0 06/07/20 16:00 73 06/07/20 16:00 98.1 72 20 154/73 (100) 98 72 06/07/20 12:00 97.9 77 22 148/79 (102) 98 78 06/07/20 12:00 3.0 06/07/20 12:00 74 Intake and Output 06/07/20 06/08/20 19:00 07:00 Intake Total 360 ml 580 ml Output Total 800 ml 275 ml Balance -440 ml 305 ml Intake Free Water 280 ml 100 ml Tube Feeding 80 ml 480 ml Output Urine Total 800 ml 275 ml # Bowel Movements 2 Laboratory Tests 06/08/20 06:25: White Blood Count 8.7, Red Blood Count 3.58L, Hemoglobin 11.6L, Hematocrit 33.7L , Mean Corpuscular Volume 94, Mean Corpuscular Hemoglobin 32.4H, Mean Corpuscular Hemoglobin Concent 34.4, Red Cell Distribution Width 15.7H, Platelet Count 93L, Mean Platelet Volume 11.5H, Neutrophils (%) (Auto) , Lymphocytes (%) (Auto) , Monocytes (%) (Auto) , Eosinophils (%) (Auto) , Basophils (%) (Auto) , Differential Total Cells Counted 100, Neutrophils % (Manual) 62, Lymphocytes % (Manual) 28, Monocytes % (Manual) 4, Eosinophils % (Manual) 5H, Basophils % (Manual) 0, Band Neutrophils 1, Platelet Estimate DecreasedL, Platelet Morphology Normal, Anisocytosis 1+, Sodium Level 138, Potassium Level 4.6, Chloride Level 102, Carbon Dioxide Level 36H, Anion Gap 0L, Blood Urea Nitrogen 18, Creatinine 0.3L, Estimat Glomerular Filtration Rate > 60, Glucose Level 104, Calcium Level 8.3L, Pro-B-Type Natriuretic Peptide 2575H Height (Feet): 5 Height (Inches): 6.00 Weight (Pounds): 137 Objective General Appearance: WD/WN, alert, confused. on bipap EENT: normal ENT inspection Neck: normal alignment Cardiovascular: normal rate Respiratory/Chest: chest wall non-tender, lungs clear, normal breath sounds Abdomen: normal bowel sounds, non tender, soft, no organomegaly Edema: no edema noted Arm (L), no edema noted Arm (R) Neurologic: alert, disoriented Assessment/Plan Problem List: (1) Seizure ICD Codes: R56.9 - Unspecified convulsions SNOMED: 31997344 (2) Dysphagia ICD Codes: R13.10 - Dysphagia, unspecified SNOMED: 20010376, 090653895 (3) UTI (urinary tract infection) ICD Codes: N39.0 - Urinary tract infection, site not specified SNOMED: 48277502 (4) Elevated troponin I level ICD Codes: R77.8 - Other specified abnormalities of plasma proteins SNOMED: 594084768 (5) AMS (altered mental status) ICD Codes: R41.82 - Altered mental status, unspecified SNOMED: 365452666 (6) NSTEMI (non-ST elevated myocardial infarction) ICD Codes: I21.4 - Non-ST elevation (NSTEMI) myocardial infarction SNOMED: 96353144 Status: stable Assessment/Plan: continuous bipap as needed need to wean to Qhs monitor abg tube feeds monitor residuals sz rx monitor labs anxiolytics as needed o2 resp rx dvt/stress ulcer prophylaxis. snf able to accept pt on noctural bipap but not continuous family deciding on snf placement limited options per case management due to exhausted snf medicare days Jorge Kee MD Jun 08, 2020 11:21
[2020-06-08 12:00] VITALS: BP 127/52
--- NOTE | 2020-06-08 14:36 | Surgery Progress Note ---
Surgery Progress Note Subjective Additional Comments no acute events labs noted exam stable Objective Last 24 Hour Vital Signs Date Time Temp Pulse Resp B/P (MAP) Pulse Ox O2 Delivery O2 Flow Rate FiO2 06/08/20 12:16 92 16 94 Nasal Cannula 3.0 32 06/08/20 12:00 77 06/08/20 12:00 97.5 81 18 127/52 (77) 97 97 06/08/20 12:00 3.0 06/08/20 09:00 Bi-pap 3.0 Nasal Cannula 06/08/20 08:00 97.5 98 20 127/71 (89) 97 97 06/08/20 08:00 99 06/08/20 08:00 3.0 06/08/20 07:51 94 Nasal Cannula 2.0 28 06/08/20 04:00 95 06/08/20 04:00 30 06/08/20 04:00 97.9 96 22 124/80 (95) 100 96 06/08/20 03:25 95 13 99 30 06/08/20 00:00 97.5 78 20 156/88 (110) 100 78 06/08/20 00:00 95 06/07/20 23:03 47 25 98 30 06/07/20 21:00 Bi-pap 3.0 Nasal Cannula 06/07/20 20:00 3.0 06/07/20 20:00 72 06/07/20 20:00 97.5 73 19 145/71 (95) 98 73 06/07/20 19:10 95 Nasal Cannula 2.0 28 06/07/20 16:00 3.0 06/07/20 16:00 73 06/07/20 16:00 98.1 72 20 154/73 (100) 98 72 I&O Intake and Output 06/07/20 06/08/20 19:00 07:00 Intake Total 360 ml 580 ml Output Total 800 ml 275 ml Balance -440 ml 305 ml Intake Free Water 280 ml 100 ml Tube Feeding 80 ml 480 ml Output Urine Total 800 ml 275 ml # Bowel Movements 2 Cardiovascular: RSR Respiratory: decreased breath sounds Abdomen: soft, non-tender, present bowel sounds Extremities: no tenderness, no cyanosis Laboratory Tests Test 06/08/20 06:25 White Blood Count 8.7 K/UL (4.8-10.8) Red Blood Count 3.58 M/UL (4.70-6.10) L Hemoglobin 11.6 G/DL (14.2-18.0) L Hematocrit 33.7 % (42.0-52.0) L Mean Corpuscular Volume 94 FL (80-99) Mean Corpuscular Hemoglobin 32.4 PG (27.0-31.0) H Mean Corpuscular Hemoglobin Concent 34.4 G/DL (32.0-36.0) Red Cell Distribution Width 15.7 % (11.6-14.8) H Platelet Count 93 K/UL (150-450) L Mean Platelet Volume 11.5 FL (6.5-10.1) H Neutrophils (%) (Auto) % (45.0-75.0) Lymphocytes (%) (Auto) % (20.0-45.0) Monocytes (%) (Auto) % (1.0-10.0) Eosinophils (%) (Auto) % (0.0-3.0) Basophils (%) (Auto) % (0.0-2.0) Differential Total Cells Counted 100 Neutrophils % (Manual) 62 % (45-75) Lymphocytes % (Manual) 28 % (20-45) Monocytes % (Manual) 4 % (1-10) Eosinophils % (Manual) 5 % (0-3) H Basophils % (Manual) 0 % (0-2) Band Neutrophils 1 % (0-8) Platelet Estimate Decreased L Platelet Morphology Normal Anisocytosis 1+ Sodium Level 138 MMOL/L (136-145) Potassium Level 4.6 MMOL/L (3.5-5.1) Chloride Level 102 MMOL/L (98-107) Carbon Dioxide Level 36 MMOL/L (21-32) H Anion Gap 0 mmol/L (5-15) L Blood Urea Nitrogen 18 mg/dL (7-18) Creatinine 0.3 MG/DL (0.55-1.30) L Estimat Glomerular Filtration Rate > 60 mL/min (>60) Glucose Level 104 MG/DL (74-106) Calcium Level 8.3 MG/DL (8.5-10.1) L Pro-B-Type Natriuretic Peptide 2575 pg/mL (0-125) H Plan Problems: (1) Deep tissue injury Assessment & Plan: Patient identified to have bilateral heel concerns for potential developing DTI. Soft boggy no fluid collection no acute injury at this time. Patient identified to have sacral erythema and skin changes with concerns for developing deep tissue injury as well. No open areas. No fluid collections no fluctuance no drainage. On the scrotum patient is identified to have edema erythema and some abrasion along with incontinence associated dermatitis in the area. Patient identified to have abrasion to the nasal brim secondary to a facemask placement. Patient is chronically ill elderly and malnourished. Wound evaluated and care plan initiated. Treatment plan Apply skin protectant to the nasal bridge followed by foam dressing prior to facemask placement. Patient currently requires oxygen supplementation and therefore important to ensure receiving such along with protection of underlying epidermis. Apply OPTi foam to heels change every 3 days offload pressure with pillows Apply OPTi foam to sacral area monitor for incontinence change accordingly every 3 days and as needed saturation. Soft towel under scrotum. Continue with respiratory supportive care Turn every 2 hours Offload pressure with pillows Continue tube feeds nutritional optimization we will follow with recommendations thank you for let me participate patient's care (2) Dementia with behavioral problem (3) UTI (urinary tract infection) (4) Elevated troponin I level (5) AMS (altered mental status) (6) Dysphagia Assessment & Plan: DAILY ESTIMATED NEEDS: Needs based on Pulmonary, cardiac, 62kg 25-30 kcals/kg 3241-5904 total kcals 1-1.5 g protein/kg 62-93 g total protein 25-30 mL/kg 9066-2171 total fluid mLs NUTRITION DIAGNOSIS: Swallowing difficulty r/t dysphagia as evidenced by pt is PEG dep, currently on continuous BIPAP. CURRENT TF: Glucerna 1.5 @ 40ml/hr ENTERAL NUTRITION RECOMMENDATIONS: Glucerna 1.5 goal of 45ml/hr x 24 hrs to provide 1080ml, 1620 kcal, 89g pro, 820ml free water * Maintain carb controlled TF of Glucerna 1.5 while CO2 critically elevated * As medically appropriate, increase goal rate to 45ml/hr x 24 hrs to better meet nutritional needs. * HOB over 30 degrees/ water flush per MD ADDITIONAL RECOMMENDATIONS: 1) Monitor BIPAP usage, safety of GT feeds -> continuous BIPAP at this time 2) Lytes daily, replete as needed Current TF Glucerna 1.5 @goal of 40ml/hr provides 2419mg K/day 3) Calibrated bed scale wts (Bed scale shows uptrend: 65kg-> 71kg) 4) Rec HgA1C for eval of BG control 5) F/up w/ WC eval: Continue MVI and Vit C (7) Seizure (8) NSTEMI (non-ST elevated myocardial infarction) (9) Respiratory insufficiency Assessment & Plan: constant required bipap ? trach dnr/dni discussed with pcp and pulm Duplex Doppler interrogation of the veins in both upper extremity is performed from the internal jugular veins to the radial and ulnar veins. No thrombus is identified. Basilic and cephalic veins are also patent bilaterally. There is mild subcutaneous edema of the right upper extremity. IMPRESSION: No evidence of deep venous thrombosis involving the upper extremities. Benitez Mayorga Jun 08, 2020 14:36
--- NOTE | 2020-06-08 15:22 | Pulmonology Progress Note ---
Subjective ROS Limited/Unobtainable: No Constitutional: Reports: other - looks better Allergies: Coded Allergies: PENICILLINS (Unverified Allergy, Unknown, 08/11/19) All Systems: reviewed and negative except above Objective Last 24 Hour Vital Signs Date Time Temp Pulse Resp B/P (MAP) Pulse Ox O2 Delivery O2 Flow Rate FiO2 06/08/20 12:16 92 16 94 Nasal Cannula 3.0 32 06/08/20 12:00 77 06/08/20 12:00 97.5 81 18 127/52 (77) 97 97 06/08/20 12:00 3.0 06/08/20 09:00 Bi-pap 3.0 Nasal Cannula 06/08/20 08:00 97.5 98 20 127/71 (89) 97 97 06/08/20 08:00 99 06/08/20 08:00 3.0 06/08/20 07:51 94 Nasal Cannula 2.0 28 06/08/20 04:00 95 06/08/20 04:00 30 06/08/20 04:00 97.9 96 22 124/80 (95) 100 96 06/08/20 03:25 95 13 99 30 06/08/20 00:00 97.5 78 20 156/88 (110) 100 78 06/08/20 00:00 95 06/07/20 23:03 47 25 98 30 06/07/20 21:00 Bi-pap 3.0 Nasal Cannula 06/07/20 20:00 3.0 06/07/20 20:00 72 06/07/20 20:00 97.5 73 19 145/71 (95) 98 73 06/07/20 19:10 95 Nasal Cannula 2.0 28 06/07/20 16:00 3.0 06/07/20 16:00 73 06/07/20 16:00 98.1 72 20 154/73 (100) 98 72 Intake and Output 06/07/20 06/08/20 19:00 07:00 Intake Total 360 ml 580 ml Output Total 800 ml 275 ml Balance -440 ml 305 ml Intake Free Water 280 ml 100 ml Tube Feeding 80 ml 480 ml Output Urine Total 800 ml 275 ml # Bowel Movements 2 Laboratory Tests 06/08/20 06:25: White Blood Count 8.7, Red Blood Count 3.58L, Hemoglobin 11.6L, Hematocrit 33.7L , Mean Corpuscular Volume 94, Mean Corpuscular Hemoglobin 32.4H, Mean Corpuscular Hemoglobin Concent 34.4, Red Cell Distribution Width 15.7H, Platelet Count 93L, Mean Platelet Volume 11.5H, Neutrophils (%) (Auto) , Lymphocytes (%) (Auto) , Monocytes (%) (Auto) , Eosinophils (%) (Auto) , Basophils (%) (Auto) , Differential Total Cells Counted 100, Neutrophils % (Manual) 62, Lymphocytes % (Manual) 28, Monocytes % (Manual) 4, Eosinophils % (Manual) 5H, Basophils % (Manual) 0, Band Neutrophils 1, Platelet Estimate DecreasedL, Platelet Morphology Normal, Anisocytosis 1+, Sodium Level 138, Potassium Level 4.6, Chloride Level 102, Carbon Dioxide Level 36H, Anion Gap 0L, Blood Urea Nitrogen 18, Creatinine 0.3L, Estimat Glomerular Filtration Rate > 60, Glucose Level 104, Calcium Level 8.3L, Pro-B-Type Natriuretic Peptide 2575H Current Medications Medications (Trade) Dose Ordered Sig/Mayela Route PRN Reason Start Time Stop Time Status Last Admin Dose Admin Cefepime HCl 2 gm/ Dextrose 55 ml @ 110 mls/hr Q24H IVPB 06/02/20 17:00 06/09/20 16:59 06/07/20 16:31 Clonidine HCl (Catapres Tab) 0.1 mg Q4H PRN ORAL SBP >160 05/08/20 22:15 08/06/20 22:14 Levetiracetam (Keppra) 250 mg DAILY GT 05/19/20 15:11 06/18/20 15:10 06/08/20 09:56 Potassium Chloride (K-Dur) 20 meq DAILY GT 05/13/20 09:00 08/11/20 08:59 06/08/20 09:56 Assessment/Plan Assessment/Plan Pulmonary Progress Note Subjective ROS Limited/Unobtainable: Yes Constitutional: Denies: fever Allergies: Coded Allergies: PENICILLINS (Unverified Allergy, Unknown, 08/11/19) All Systems: reviewed and negative except above Subjective care noted BIPAP PRN NC when not on BiPAP Objective Vital Signs Noted Objective WDWN NAD reduced breath sounds bilaterally without rhonchi [id number] without MRG NABS nontender no CC mild edema nonfocal off BIPAP reduced LOC Laboratory Tests noted Medications noted Assessment/Plan Assessment/Plan ASSESSMENT: Pulmonary congestion, respiratory failure, hypoxemia dementia, G-tube, seizure disorder, congestive heart failure, COPD sepsis, and acute [place]. acute on chronic CO2 retention PLAN: oxygen and need for BIPAP reviewed; repeat ABG for CO2 retention. Breathing treatments and aspiration precautions. Monitor blood gases for change.keep negative. seizure medications. feeds and monitor residuals; DNR noted DVT prophylaxis remains guarded and at risk for decompensation d/w primary impression, plan, and exam edited and reviewed in detail care discussed with Real Ambrocio MD Jun 08, 2020 15:22
[2020-06-08 16:00] VITALS: BP 140/67
[2020-06-08] MEDS: Cefepime HCl 2 GM in D5W 55 ML IVPB SCH (16:49)
[2020-06-08 20:00] VITALS: BP 148/99
--- NOTE | 2020-06-08 21:11 | Cardiology Progress Note ---
Subjective DATE OF SERVICE: Jun 08, 2020 [address] on [address]ap at [facility]. Comfortable on O2 by n/c during day. BP remains well controlled. BNP increased to 2500 range. Monitor: sinus with occ run of VTach. Objective Last 24 Hour Vital Signs Date Time Temp Pulse Resp B/P (MAP) Pulse Ox O2 Delivery O2 Flow Rate FiO2 06/08/20 20:07 94 Nasal Cannula 3.0 32 06/08/20 16:00 97.9 72 18 140/67 (91) 98 98 06/08/20 16:00 79 06/08/20 16:00 3.0 06/08/20 12:16 92 16 94 Nasal Cannula 3.0 32 06/08/20 12:00 77 06/08/20 12:00 97.5 81 18 127/52 (77) 97 97 06/08/20 12:00 3.0 06/08/20 09:00 Bi-pap 3.0 Nasal Cannula 06/08/20 08:00 97.5 98 20 127/71 (89) 97 97 06/08/20 08:00 99 06/08/20 08:00 3.0 06/08/20 07:51 94 Nasal Cannula 2.0 28 06/08/20 04:00 95 06/08/20 04:00 30 06/08/20 04:00 97.9 96 22 124/80 (95) 100 96 06/08/20 03:25 95 13 99 30 06/08/20 00:00 97.5 78 20 156/88 (110) 100 78 06/08/20 00:00 95 06/07/20 23:03 47 25 98 30 ROS: unchanged from my evaluation of 05/06/20 HEENT: normal ENT inspection, other - bipap mask RHYTHM: NSR, VT LUNGS: diminished breath sounds, left-sided rhonchi CARDIAC: normal rate, regular rhythm, normal S1 and S2 ABDOMEN: non tender, soft, G-Tube intact EXTREMITIES: non-pitting, No edema Laboratory Tests Test 06/08/20 06:25 White Blood Count 8.7 K/UL (4.8-10.8) Red Blood Count 3.58 M/UL (4.70-6.10) L Hemoglobin 11.6 G/DL (14.2-18.0) L Hematocrit 33.7 % (42.0-52.0) L Mean Corpuscular Volume 94 FL (80-99) Mean Corpuscular Hemoglobin 32.4 PG (27.0-31.0) H Mean Corpuscular Hemoglobin Concent 34.4 G/DL (32.0-36.0) Red Cell Distribution Width 15.7 % (11.6-14.8) H Platelet Count 93 K/UL (150-450) L Mean Platelet Volume 11.5 FL (6.5-10.1) H Neutrophils (%) (Auto) % (45.0-75.0) Lymphocytes (%) (Auto) % (20.0-45.0) Monocytes (%) (Auto) % (1.0-10.0) Eosinophils (%) (Auto) % (0.0-3.0) Basophils (%) (Auto) % (0.0-2.0) Differential Total Cells Counted 100 Neutrophils % (Manual) 62 % (45-75) Lymphocytes % (Manual) 28 % (20-45) Monocytes % (Manual) 4 % (1-10) Eosinophils % (Manual) 5 % (0-3) H Basophils % (Manual) 0 % (0-2) Band Neutrophils 1 % (0-8) Platelet Estimate Decreased L Platelet Morphology Normal Anisocytosis 1+ Sodium Level 138 MMOL/L (136-145) Potassium Level 4.6 MMOL/L (3.5-5.1) Chloride Level 102 MMOL/L (98-107) Carbon Dioxide Level 36 MMOL/L (21-32) H Anion Gap 0 mmol/L (5-15) L Blood Urea Nitrogen 18 mg/dL (7-18) Creatinine 0.3 MG/DL (0.55-1.30) L Estimat Glomerular Filtration Rate > 60 mL/min (>60) Glucose Level 104 MG/DL (74-106) Calcium Level 8.3 MG/DL (8.5-10.1) L Pro-B-Type Natriuretic Peptide 2575 pg/mL (0-125) H Assessment/Plan Assessment/Plan E.coli UTI Sepsis Metabolic and toxic encephalopathies Cerebrovascular disease with dementia Acute myocardial ischemia and possible NSTEMI Dehydration/hypernatremia Hypertension/HHD Ac/chronic respiratory acidosis now compensated Respiratory failure improving, but still requiring bipap support Ac diastolic CHF; BNP relatively unchanged. Metabolic acidosis Pleural effusions Ac/chr renal failure with azotemia Paroxysmal ventricular tachycardia hypokalemia Continue anti-anginal regimen including nitrates. Maintain current antiHTN regimen. Antimicrobial therapy per ID. Maintain adequate free water per Gtube. Periodic diuretics rx; trend BNP. Bipap support-taper to nighttime only. Real Magana MD Jun 08, 2020 21:11
[2020-06-09] VITALS: BP 157/77
[2020-06-09 04:00] VITALS: BP 140/73
[2020-06-09 08:00] VITALS: BP 149/89
--- NOTE | 2020-06-09 08:35 | Pulmonology Progress Note ---
Subjective ROS Limited/Unobtainable: Yes Constitutional: Reports: other - looks better Allergies: Coded Allergies: PENICILLINS (Unverified Allergy, Unknown, 08/11/19) All Systems: reviewed and negative except above Subjective care noted back off BIPAP comfortable on weekend events reviewed Objective Last 24 Hour Vital Signs Date Time Temp Pulse Resp B/P (MAP) Pulse Ox O2 Delivery O2 Flow Rate FiO2 06/09/20 04:00 97.7 95 20 140/73 (95) 99 95 06/09/20 04:00 3.0 06/09/20 04:00 95 06/09/20 00:00 92 06/09/20 00:00 97.9 92 20 157/77 (103) 99 92 06/08/20 21:00 Bi-pap 3.0 Nasal Cannula 06/08/20 20:07 94 Nasal Cannula 3.0 32 06/08/20 20:00 80 06/08/20 20:00 98.1 80 18 148/99 (115) 100 80 06/08/20 20:00 3.0 06/08/20 16:00 97.9 72 18 140/67 (91) 98 98 06/08/20 16:00 79 06/08/20 16:00 3.0 06/08/20 12:16 92 16 94 Nasal Cannula 3.0 32 06/08/20 12:00 77 06/08/20 12:00 97.5 81 18 127/52 (77) 97 97 06/08/20 12:00 3.0 06/08/20 09:00 Bi-pap 3.0 Nasal Cannula Intake and Output 06/08/20 06/09/20 19:00 07:00 Intake Total 385 ml Output Total 800 ml 1050 ml Balance -800 ml -665 ml Intake Free Water 225 ml Tube Feeding 160 ml Output Urine Total 800 ml 1050 ml # Bowel Movements 1 Objective WDWN NAD reduced breath sounds bilaterally without rhonchi or wheeze [id number] without MRG NABS nontender no CC mild edema as is nonfocal off BIPAP reduced LOC Laboratory Tests 06/09/20 08:10: Arterial Blood pH 7.416, Arterial Blood Partial Pressure CO2 59.7*H, Arterial Blood Partial Pressure O2 79.9, Arterial Blood HCO3 37.5H, Arterial Blood Oxygen Saturation 94.7L, Arterial Blood Base Excess 10.8*H, Apollo Test Positive Current Medications Medications (Trade) Dose Ordered Sig/Mayela Route PRN Reason Start Time Stop Time Status Last Admin Dose Admin Cefepime HCl 2 gm/ Dextrose 55 ml @ 110 mls/hr Q24H IVPB 06/02/20 17:00 06/09/20 16:59 06/08/20 16:49 Clonidine HCl (Catapres Tab) 0.1 mg Q4H PRN ORAL SBP >160 05/08/20 22:15 08/06/20 22:14 Levetiracetam (Keppra) 250 mg DAILY GT 05/19/20 15:11 06/18/20 15:10 06/08/20 09:56 Potassium Chloride (K-Dur) 20 meq DAILY GT 05/13/20 09:00 08/11/20 08:59 06/08/20 09:56 Assessment/Plan Assessment/Plan ASSESSMENT: Pulmonary congestion, respiratory failure, hypoxemia dementia, G-tube, seizure disorder, congestive heart failure, COPD sepsis, and acute [place]. acute on chronic CO2 retention PLAN: oxygen and need for BIPAP reviewed; repeat ABG for CO2 retention as needed. Breathing treatments and aspiration precautions. Monitor blood gases for change.keep negative. seizure medications. feeds and monitor residuals; DNR noted DVT prophylaxis; imaging improved remains guarded and at risk for decompensation d/w primary; dc planning for now impression, plan, and exam edited and reviewed in detail care discussed with Attila Yuan MD Jun 09, 2020 08:35
[2020-06-09] MEDS: levETIRAcetam 500mg/5ml Liquid GT SCH (09:21)
--- NOTE | 2020-06-09 11:15 | Infectious Diseases Prog Note ---
Assessment/Plan Assessment/Plan antibiotics : cefepime 11 .,20 - A 1. Urinary tract infection with E. coli s/p rx 2. MRSA nasal colonization. 3. CHF. 4. COPD. 5. Seizures. 6. Dementia. 7. He is negative for COVID-19. 8. pneumonia 9. respiratory failure P 1. continue cefepime 2 more days 2. will follow up cultures Subjective ROS Limited/Unobtainable: Yes Allergies: Coded Allergies: PENICILLINS (Unverified Allergy, Unknown, 08/11/19) Objective Last 24 Hour Vital Signs Date Time Temp Pulse Resp B/P (MAP) Pulse Ox O2 Delivery O2 Flow Rate FiO2 06/09/20 09:00 Bi-pap 3.0 Nasal Cannula 06/09/20 08:45 102 33 97 30 06/09/20 08:00 30 06/09/20 08:00 98.4 99 20 149/89 (109) 99 104 06/09/20 07:40 112 06/09/20 07:30 97 Nasal Cannula 2.0 28 06/09/20 04:00 97.7 95 20 140/73 (95) 99 95 06/09/20 04:00 3.0 06/09/20 04:00 95 06/09/20 00:00 92 06/09/20 00:00 97.9 92 20 157/77 (103) 99 92 06/08/20 21:00 Bi-pap 3.0 Nasal Cannula 06/08/20 20:07 94 Nasal Cannula 3.0 32 06/08/20 20:00 80 06/08/20 20:00 98.1 80 18 148/99 (115) 100 80 06/08/20 20:00 3.0 06/08/20 16:00 97.9 72 18 140/67 (91) 98 98 06/08/20 16:00 79 06/08/20 16:00 3.0 06/08/20 12:16 92 16 94 Nasal Cannula 3.0 32 06/08/20 12:00 77 06/08/20 12:00 97.5 81 18 127/52 (77) 97 97 06/08/20 12:00 3.0 Height (Feet): 5 Height (Inches): 6.00 Weight (Pounds): 137 HEENT: other - on bipap Respiratory/Chest: lungs clear Cardiovascular: normal rate, regular rhythm, no gallop/murmur Abdomen: soft, non tender, other - GT Extremities: no edema Laboratory Tests Test 06/09/20 08:10 Arterial Blood pH 7.416 (7.350-7.450) Arterial Blood Partial Pressure CO2 59.7 mmHg (35.0-45.0) *H Arterial Blood Partial Pressure O2 79.9 mmHg (75.0-100.0) Arterial Blood HCO3 37.5 mmol/L (22.0-26.0) H Arterial Blood Oxygen Saturation 94.7 % (95-100) L Arterial Blood Base Excess 10.8 (-2-2) *H Apollo Test Positive Current Medications Medications (Trade) Dose Ordered Sig/Mayela Route PRN Reason Start Time Stop Time Status Last Admin Dose Admin Cefepime HCl 2 gm/ Dextrose 55 ml @ 110 mls/hr Q24H IVPB 06/02/20 17:00 06/09/20 16:59 06/08/20 16:49 Clonidine HCl (Catapres Tab) 0.1 mg Q4H PRN ORAL SBP >160 05/08/20 22:15 08/06/20 22:14 Levetiracetam (Keppra) 250 mg DAILY GT 05/19/20 15:11 06/18/20 15:10 06/09/20 09:21 Potassium Chloride (K-Dur) 20 meq DAILY GT 05/13/20 09:00 08/11/20 08:59 06/09/20 09:21 Josué Light MD Jun 09, 2020 11:15
[2020-06-09 12:00] VITALS: BP 145/82
--- NOTE | 2020-06-09 12:12 | Cardiology Progress Note ---
Subjective DATE OF SERVICE: Jun 09, 2020 Remains on bipap at [facility]. Comfortable on O2 by n/c during day. BP remains well controlled. BNP increased to 2500 range, and patient was diuresed further. Monitor: sinus with occ run of VTach. ABG (06/09) 7.42/60/80 Objective Last 24 Hour Vital Signs Date Time Temp Pulse Resp B/P (MAP) Pulse Ox O2 Delivery O2 Flow Rate FiO2 06/09/20 12:00 98.1 97 20 145/82 (103) 100 97 06/09/20 12:00 30 06/09/20 09:00 Bi-pap 3.0 Nasal Cannula 06/09/20 08:45 102 33 97 30 06/09/20 08:00 30 06/09/20 08:00 98.4 99 20 149/89 (109) 99 104 06/09/20 07:40 112 06/09/20 07:30 97 Nasal Cannula 2.0 28 06/09/20 04:00 97.7 95 20 140/73 (95) 99 95 06/09/20 04:00 3.0 06/09/20 04:00 95 06/09/20 00:00 92 06/09/20 00:00 97.9 92 20 157/77 (103) 99 92 06/08/20 21:00 Bi-pap 3.0 Nasal Cannula 06/08/20 20:07 94 Nasal Cannula 3.0 32 06/08/20 20:00 80 06/08/20 20:00 98.1 80 18 148/99 (115) 100 80 06/08/20 20:00 3.0 06/08/20 16:00 97.9 72 18 140/67 (91) 98 98 06/08/20 16:00 79 06/08/20 16:00 3.0 06/08/20 12:16 92 16 94 Nasal Cannula 3.0 32 ROS: unchanged from my evaluation of 05/06/20 HEENT: normal ENT inspection, other - bipap mask RHYTHM: NSR, VT LUNGS: diminished breath sounds, left-sided rhonchi CARDIAC: normal rate, regular rhythm, normal S1 and S2 ABDOMEN: non tender, soft, G-Tube intact EXTREMITIES: non-pitting, No edema Laboratory Tests Test 06/09/20 08:10 Arterial Blood pH 7.416 (7.350-7.450) Arterial Blood Partial Pressure CO2 59.7 mmHg (35.0-45.0) *H Arterial Blood Partial Pressure O2 79.9 mmHg (75.0-100.0) Arterial Blood HCO3 37.5 mmol/L (22.0-26.0) H Arterial Blood Oxygen Saturation 94.7 % (95-100) L Arterial Blood Base Excess 10.8 (-2-2) *H Apollo Test Positive Assessment/Plan Assessment/Plan E.coli UTI Sepsis Metabolic and toxic encephalopathies Cerebrovascular disease with dementia Acute myocardial ischemia and possible NSTEMI Dehydration/hypernatremia Hypertension/HHD Ac/chronic respiratory acidosis now compensated Respiratory failure improving, but still requiring bipap support Ac diastolic CHF; BNP relatively unchanged. Metabolic acidosis resolved Pleural effusions Ac/chr renal failure with azotemia Paroxysmal ventricular tachycardia hypokalemia Continue anti-anginal regimen including nitrates. Maintain current antiHTN regimen. Antimicrobial therapy per ID. Maintain adequate free water per Gtube. Periodic diuretics rx; trend BNP. Bipap support-taper to nighttime only. Real Magana MD Jun 09, 2020 12:12
--- NOTE | 2020-06-09 12:56 | Surgery Progress Note ---
Surgery Progress Note Subjective Additional Comments improved off bipap comfortable no n/v Objective Last 24 Hour Vital Signs Date Time Temp Pulse Resp B/P (MAP) Pulse Ox O2 Delivery O2 Flow Rate FiO2 06/09/20 12:00 98.1 97 20 145/82 (103) 100 97 06/09/20 12:00 30 06/09/20 10:50 69 15 97 30 06/09/20 09:00 Bi-pap 3.0 Nasal Cannula 06/09/20 08:45 102 33 97 30 06/09/20 08:00 30 06/09/20 08:00 98.4 99 20 149/89 (109) 99 104 06/09/20 07:40 112 06/09/20 07:30 97 Nasal Cannula 2.0 28 06/09/20 04:00 97.7 95 20 140/73 (95) 99 95 06/09/20 04:00 3.0 06/09/20 04:00 95 06/09/20 00:00 92 06/09/20 00:00 97.9 92 20 157/77 (103) 99 92 06/08/20 21:00 Bi-pap 3.0 Nasal Cannula 06/08/20 20:07 94 Nasal Cannula 3.0 32 06/08/20 20:00 80 06/08/20 20:00 98.1 80 18 148/99 (115) 100 80 06/08/20 20:00 3.0 06/08/20 16:00 97.9 72 18 140/67 (91) 98 98 06/08/20 16:00 79 06/08/20 16:00 3.0 I&O Intake and Output 06/08/20 06/09/20 19:00 07:00 Intake Total 385 ml Output Total 800 ml 1050 ml Balance -800 ml -665 ml Intake Free Water 225 ml Tube Feeding 160 ml Output Urine Total 800 ml 1050 ml # Bowel Movements 1 Dressing: other Wound: other Cardiovascular: RSR Respiratory: decreased breath sounds Abdomen: soft, non-tender, present bowel sounds Extremities: no tenderness, no cyanosis Laboratory Tests Test 06/09/20 08:10 Arterial Blood pH 7.416 (7.350-7.450) Arterial Blood Partial Pressure CO2 59.7 mmHg (35.0-45.0) *H Arterial Blood Partial Pressure O2 79.9 mmHg (75.0-100.0) Arterial Blood HCO3 37.5 mmol/L (22.0-26.0) H Arterial Blood Oxygen Saturation 94.7 % (95-100) L Arterial Blood Base Excess 10.8 (-2-2) *H Apollo Test Positive Plan Problems: (1) Deep tissue injury Assessment & Plan: Patient identified to have bilateral heel concerns for potential developing DTI. Soft boggy no fluid collection no acute injury at this time. Patient identified to have sacral erythema and skin changes with concerns for developing deep tissue injury as well. No open areas. No fluid collections no fluctuance no drainage. On the scrotum patient is identified to have edema erythema and some abrasion along with incontinence associated dermatitis in the area. Patient identified to have abrasion to the nasal brim secondary to a facemask placement. Patient is chronically ill elderly and malnourished. Wound evaluated and care plan initiated. Treatment plan Apply skin protectant to the nasal bridge followed by foam dressing prior to facemask placement. Patient currently requires oxygen supplementation and therefore important to ensure receiving such along with protection of underlying epidermis. Apply OPTi foam to heels change every 3 days offload pressure with pillows Apply OPTi foam to sacral area monitor for incontinence change accordingly every 3 days and as needed saturation. Soft towel under scrotum. Continue with respiratory supportive care Turn every 2 hours Offload pressure with pillows Continue tube feeds nutritional optimization we will follow with recommendations thank you for let me participate patient's care (2) Dementia with behavioral problem (3) UTI (urinary tract infection) (4) Elevated troponin I level (5) AMS (altered mental status) (6) Dysphagia Assessment & Plan: DAILY ESTIMATED NEEDS: Needs based on Pulmonary, cardiac, 62kg 25-30 kcals/kg 3971-5807 total kcals 1-1.5 g protein/kg 62-93 g total protein 25-30 mL/kg 3363-9607 total fluid mLs NUTRITION DIAGNOSIS: Swallowing difficulty r/t dysphagia as evidenced by pt is PEG dep, currently on continuous BIPAP. CURRENT TF: Glucerna 1.5 @ 40ml/hr ENTERAL NUTRITION RECOMMENDATIONS: Glucerna 1.5 goal of 45ml/hr x 24 hrs to provide 1080ml, 1620 kcal, 89g pro, 820ml free water * Maintain carb controlled TF of Glucerna 1.5 while CO2 critically elevated * As medically appropriate, increase goal rate to 45ml/hr x 24 hrs to better meet nutritional needs. * HOB over 30 degrees/ water flush per MD ADDITIONAL RECOMMENDATIONS: 1) Monitor BIPAP usage, safety of GT feeds -> continuous BIPAP at this time 2) Lytes daily, replete as needed Current TF Glucerna 1.5 @goal of 40ml/hr provides 2419mg K/day 3) Calibrated bed scale wts (Bed scale shows uptrend: 65kg-> 71kg) 4) Rec HgA1C for eval of BG control 5) F/up w/ WC eval: Continue MVI and Vit C (7) Seizure (8) NSTEMI (non-ST elevated myocardial infarction) (9) Respiratory insufficiency Assessment & Plan: constant required bipap ? trach dnr/dni discussed with pcp and pulm Duplex Doppler interrogation of the veins in both upper extremity is performed from the internal jugular veins to the radial and ulnar veins. No thrombus is identified. Basilic and cephalic veins are also patent bilaterally. There is mild subcutaneous edema of the right upper extremity. IMPRESSION: No evidence of deep venous thrombosis involving the upper extremities. Benitez Mayorga Jun 09, 2020 12:56
[2020-06-09 16:00] VITALS: BP 143/97
--- NOTE | 2020-06-09 16:10 | General Progress Note ---
Subjective ROS Limited/Unobtainable: No Constitutional: Reports: malaise, weakness HEENT: Reports: no symptoms Cardiovascular: Reports: no symptoms Respiratory: Reports: cough, SOB at rest Gastrointestinal/Abdominal: Reports: difficulty swallowing Genitourinary: Reports: no symptoms Neurologic/Psychiatric: Reports: anxiety, depressed, emotional problems, pre- existing deficit, seizure Endocrine: Reports: no symptoms Hematologic/Lymphatic: Reports: anemia Allergies: Coded Allergies: PENICILLINS (Unverified Allergy, Unknown, 08/11/19) All Systems: reviewed and negative except above Subjective no events. refused bipap last night according to RN. More sob this am. shallow respirations. poorly responsive. tolerating tube feeds. labs reviewed. Objective Last 24 Hour Vital Signs Date Time Temp Pulse Resp B/P (MAP) Pulse Ox O2 Delivery O2 Flow Rate FiO2 06/09/20 12:00 98.1 97 20 145/82 (103) 100 97 06/09/20 12:00 30 06/09/20 12:00 99 06/09/20 10:50 69 15 97 30 06/09/20 09:00 Bi-pap 3.0 Nasal Cannula 06/09/20 08:45 102 33 97 30 06/09/20 08:00 30 06/09/20 08:00 98.4 99 20 149/89 (109) 99 104 06/09/20 07:40 112 06/09/20 07:30 97 Nasal Cannula 2.0 28 06/09/20 04:00 97.7 95 20 140/73 (95) 99 95 06/09/20 04:00 3.0 06/09/20 04:00 95 06/09/20 00:00 92 06/09/20 00:00 97.9 92 20 157/77 (103) 99 92 06/08/20 21:00 Bi-pap 3.0 Nasal Cannula 06/08/20 20:07 94 Nasal Cannula 3.0 32 06/08/20 20:00 80 06/08/20 20:00 98.1 80 18 148/99 (115) 100 80 06/08/20 20:00 3.0 Intake and Output 06/08/20 06/09/20 19:00 07:00 Intake Total 385 ml Output Total 800 ml 1050 ml Balance -800 ml -665 ml Intake Free Water 225 ml Tube Feeding 160 ml Output Urine Total 800 ml 1050 ml # Bowel Movements 1 Laboratory Tests 06/09/20 08:10: Arterial Blood pH 7.416, Arterial Blood Partial Pressure CO2 59.7*H, Arterial Blood Partial Pressure O2 79.9, Arterial Blood HCO3 37.5H, Arterial Blood Oxygen Saturation 94.7L, Arterial Blood Base Excess 10.8*H, Apollo Test Positive Height (Feet): 5 Height (Inches): 6.00 Weight (Pounds): 137 Objective General Appearance: WD/WN, alert, confused. on bipap EENT: normal ENT inspection Neck: normal alignment Cardiovascular: normal rate Respiratory/Chest: chest wall non-tender, lungs clear, normal breath sounds Abdomen: normal bowel sounds, non tender, soft, no organomegaly Edema: no edema noted Arm (L), no edema noted Arm (R) Neurologic: alert, disoriented Assessment/Plan Problem List: (1) Seizure ICD Codes: R56.9 - Unspecified convulsions SNOMED: 16172171 (2) Dysphagia ICD Codes: R13.10 - Dysphagia, unspecified SNOMED: 55702043, 544351010 (3) UTI (urinary tract infection) ICD Codes: N39.0 - Urinary tract infection, site not specified SNOMED: 49709161 (4) Elevated troponin I level ICD Codes: R77.8 - Other specified abnormalities of plasma proteins SNOMED: 278993272 (5) AMS (altered mental status) ICD Codes: R41.82 - Altered mental status, unspecified SNOMED: 922248445 (6) NSTEMI (non-ST elevated myocardial infarction) ICD Codes: I21.4 - Non-ST elevation (NSTEMI) myocardial infarction SNOMED: 95954390 Status: stable Assessment/Plan: resume bipap. needs qhs at least. need to wean to Qhs monitor abg tube feeds monitor residuals sz rx monitor labs anxiolytics as needed o2 resp rx dvt/stress ulcer prophylaxis. snf able to accept pt on noctural bipap but not continuous family deciding on snf placement limited options per case management due to exhausted snf medicare days Jorge Kee MD Jun 09, 2020 16:10
[2020-06-09] MEDS: Cefepime HCl 2 GM in D5W 55 ML IVPB SCH (17:21)
[2020-06-09 20:00] VITALS: BP 140/86
[2020-06-10] VITALS: BP 156/83
[2020-06-10 04:00] VITALS: BP 154/83
--- NOTE | 2020-06-10 07:17 | Pulmonology Progress Note ---
Subjective ROS Limited/Unobtainable: Yes Constitutional: Reports: other - looks better Allergies: Coded Allergies: PENICILLINS (Unverified Allergy, Unknown, 08/11/19) All Systems: reviewed and negative except above Subjective care noted back off BIPAP comfortable on NC Objective Last 24 Hour Vital Signs Date Time Temp Pulse Resp B/P (MAP) Pulse Ox O2 Delivery O2 Flow Rate FiO2 06/10/20 04:00 30 06/10/20 04:00 98.9 96 28 154/83 (106) 99 96 06/10/20 03:24 91 30 99 30 06/10/20 03:18 76 06/10/20 00:00 98.1 94 22 156/83 (107) 100 93 06/10/20 00:00 30 06/09/20 23:29 99 17 100 30 06/09/20 23:01 97 06/09/20 21:00 Bi-pap Bi-pap 06/09/20 20:00 30 06/09/20 20:00 98.1 82 26 140/86 (104) 100 93 06/09/20 19:38 94 06/09/20 19:06 92 24 98 30 06/09/20 19:06 98 Bi-Pap 30 06/09/20 16:00 92 06/09/20 16:00 30 06/09/20 16:00 97.6 93 20 143/97 (112) 99 93 06/09/20 14:45 90 23 97 30 06/09/20 12:00 98.1 97 20 145/82 (103) 100 97 06/09/20 12:00 30 06/09/20 12:00 99 06/09/20 10:50 69 15 97 30 06/09/20 09:00 Bi-pap 3.0 Nasal Cannula 06/09/20 08:45 102 33 97 30 06/09/20 08:00 30 06/09/20 08:00 98.4 99 20 149/89 (109) 99 104 06/09/20 07:40 112 06/09/20 07:30 97 Nasal Cannula 2.0 28 Intake and Output 06/09/20 06/10/20 19:00 07:00 Intake Total 115 ml 510 ml Output Total 550 ml Balance -435 ml 510 ml Intake Free Water 75 ml 150 ml Tube Feeding 40 ml 360 ml Output Urine Total 550 ml # Bowel Movements 1 Objective WDWN NAD reduced breath sounds bilaterally without rhonchi or wheeze [id number] without MRG NABS nontender no CC mild edema as is nonfocal off BIPAP reduced LOC Laboratory Tests 06/09/20 08:10: Arterial Blood pH 7.416, Arterial Blood Partial Pressure CO2 59.7*H, Arterial Blood Partial Pressure O2 79.9, Arterial Blood HCO3 37.5H, Arterial Blood Oxygen Saturation 94.7L, Arterial Blood Base Excess 10.8*H, Apollo Test Positive 06/10/20 06:51: Arterial Blood pH 7.424, Arterial Blood Partial Pressure CO2 57.7*H, Arterial Blood Partial Pressure O2 83.0, Arterial Blood HCO3 36.9H, Arterial Blood Oxygen Saturation 95.4, Arterial Blood Base Excess 10.6*H, Apollo Test Positive Current Medications Medications (Trade) Dose Ordered Sig/Mayela Route PRN Reason Start Time Stop Time Status Last Admin Dose Admin Cefepime HCl 2 gm/ Dextrose 55 ml @ 110 mls/hr Q24H IVPB 06/09/20 17:00 06/11/20 23:59 06/09/20 17:21 Clonidine HCl (Catapres Tab) 0.1 mg Q4H PRN ORAL SBP >160 05/08/20 22:15 08/06/20 22:14 Levetiracetam (Keppra) 250 mg DAILY GT 05/19/20 15:11 06/18/20 15:10 06/09/20 09:21 Potassium Chloride (K-Dur) 20 meq DAILY GT 05/13/20 09:00 08/11/20 08:59 06/09/20 09:21 Assessment/Plan Assessment/Plan ASSESSMENT: Pulmonary congestion, respiratory failure, hypoxemia dementia, G-tube, seizure disorder, congestive heart failure, COPD sepsis, and acute MS. acute on chronic CO2 retention PLAN: oxygen as is; stable thus far. Breathing treatments and aspiration precautions. Monitor blood gases for change.keep negative. seizure medications. feeds and monitor residuals; DNR noted DVT prophylaxis; monitor imaging guarded and at risk for decompensation dc planning for now impression, plan, and exam edited and reviewed in detail care discussed with Attila Yuan MD Jun 10, 2020 07:17
[2020-06-10 07:24] LABS: BASOPHILS % (AUTO) 1.3 % (0.0-2.0); EOSINOPHILS % (AUTO) 2.9 % (0.0-3.0); HEMATOCRIT 35.2 % (42.0-52.0); HEMOGLOBIN 11.9 G/DL (14.2-18.0); LYMPHOCYTES % (AUTO) 22.9 % (20.0-45.0); MEAN CORPUSCULAR VOLUME 95 FL (80-99); MONOCYTES % (AUTO) 9.7 % (1.0-10.0); NEUTROPHILS % (AUTO) 63.3 % (45.0-75.0); PLATELET COUNT 141 K/UL (150-450); RED CELL DISTRIBUTION WIDTH 16.2 % (11.6-14.8); WHITE BLOOD COUNT 7.3 K/UL (4.8-10.8)
[2020-06-10 08:00] VITALS: BP 148/81
[2020-06-10 08:07] LABS: ANION GAP 0 mmol/L (5-15); BLOOD UREA NITROGEN 20 mg/dL (7-18); CALCIUM 8.5 MG/DL (8.5-10.1); CARBON DIOXIDE 39 MMOL/L (21-32); CHLORIDE 99 MMOL/L (98-107); CREATININE 0.5 MG/DL (0.55-1.30); POTASSIUM 4.3 MMOL/L (3.5-5.1); SODIUM 138 MMOL/L (136-145)
[2020-06-10] MEDS: levETIRAcetam 500mg/5ml Liquid GT SCH (09:08)
--- NOTE | 2020-06-10 09:24 | General Progress Note ---
Subjective ROS Limited/Unobtainable: No Constitutional: Reports: malaise, weakness HEENT: Reports: no symptoms Cardiovascular: Reports: no symptoms Respiratory: Reports: cough, shortness of breath, sputum Gastrointestinal/Abdominal: Reports: difficulty swallowing Genitourinary: Reports: no symptoms Neurologic/Psychiatric: Reports: pre-existing deficit, seizure Endocrine: Reports: no symptoms Hematologic/Lymphatic: Reports: no symptoms Allergies: Coded Allergies: PENICILLINS (Unverified Allergy, Unknown, 08/11/19) All Systems: reviewed and negative except above Subjective no events. on bipap. no fever or chills. no sob. tolerating feeds.no szs Objective Last 24 Hour Vital Signs Date Time Temp Pulse Resp B/P (MAP) Pulse Ox O2 Delivery O2 Flow Rate FiO2 06/10/20 08:37 Bi-pap Bi-pap 06/10/20 08:00 30 06/10/20 07:50 77 06/10/20 04:00 30 06/10/20 04:00 98.9 96 28 154/83 (106) 99 96 06/10/20 03:24 91 30 99 30 06/10/20 03:18 76 06/10/20 00:00 98.1 94 22 156/83 (107) 100 93 06/10/20 00:00 30 06/09/20 23:29 99 17 100 30 06/09/20 23:01 97 06/09/20 21:00 Bi-pap Bi-pap 06/09/20 20:00 30 06/09/20 20:00 98.1 82 26 140/86 (104) 100 93 06/09/20 19:38 94 06/09/20 19:06 92 24 98 30 06/09/20 19:06 98 Bi-Pap 30 06/09/20 16:00 92 06/09/20 16:00 30 06/09/20 16:00 97.6 93 20 143/97 (112) 99 93 06/09/20 14:45 90 23 97 30 06/09/20 12:00 98.1 97 20 145/82 (103) 100 97 06/09/20 12:00 30 06/09/20 12:00 99 06/09/20 10:50 69 15 97 30 Intake and Output 06/09/20 06/10/20 19:00 07:00 Intake Total 115 ml 665 ml Output Total 550 ml 300 ml Balance -435 ml 365 ml Intake Free Water 75 ml 225 ml Tube Feeding 40 ml 440 ml Output Urine Total 550 ml 300 ml # Bowel Movements 1 Laboratory Tests 06/10/20 05:40: White Blood Count 7.3, Red Blood Count 3.70L, Hemoglobin 11.9L, Hematocrit 35.2L , Mean Corpuscular Volume 95, Mean Corpuscular Hemoglobin 32.2H, Mean Corpuscular Hemoglobin Concent 33.9, Red Cell Distribution Width 16.2H, Platelet Count 141L, Mean Platelet Volume 11.0H, Neutrophils (%) (Auto) 63.3, Lymphocytes (%) (Auto) 22.9, Monocytes (%) (Auto) 9.7, Eosinophils (%) (Auto) 2.9, Basophils (%) (Auto) 1.3, Sodium Level 138, Potassium Level 4.3, Chloride Level 99, Carbon Dioxide Level 39H, Anion Gap 0L, Blood Urea Nitrogen 20H, Creatinine 0.5L, Estimat Glomerular Filtration Rate > 60, Glucose Level 107H, Calcium Level 8.5, Magnesium Level 2.2, Pro-B-Type Natriuretic Peptide 1253H 06/10/20 06:51: Arterial Blood pH 7.424, Arterial Blood Partial Pressure CO2 57.7*H, Arterial Blood Partial Pressure O2 83.0, Arterial Blood HCO3 36.9H, Arterial Blood Oxygen Saturation 95.4, Arterial Blood Base Excess 10.6*H, Apollo Test Positive Height (Feet): 5 Height (Inches): 6.00 Weight (Pounds): 137 Objective General Appearance: WD/WN, alert, confused. on bipap EENT: normal ENT inspection Neck: normal alignment Cardiovascular: normal rate Respiratory/Chest: chest wall non-tender, lungs clear, normal breath sounds Abdomen: normal bowel sounds, non tender, soft, no organomegaly Edema: no edema noted Arm (L), no edema noted Arm (R) Neurologic: alert, disoriented Assessment/Plan Problem List: (1) Seizure ICD Codes: R56.9 - Unspecified convulsions SNOMED: 04662126 (2) Dysphagia ICD Codes: R13.10 - Dysphagia, unspecified SNOMED: 77406625, 305233872 (3) UTI (urinary tract infection) ICD Codes: N39.0 - Urinary tract infection, site not specified SNOMED: 17616660 (4) Elevated troponin I level ICD Codes: R77.8 - Other specified abnormalities of plasma proteins SNOMED: 952418211 (5) AMS (altered mental status) ICD Codes: R41.82 - Altered mental status, unspecified SNOMED: 053622594 (6) NSTEMI (non-ST elevated myocardial infarction) ICD Codes: I21.4 - Non-ST elevation (NSTEMI) myocardial infarction SNOMED: 95868744 Status: stable Assessment/Plan: nasal cannula during the day bipap at [place] agent abg tube feeds monitor residuals sz rx monitor labs anxiolytics as needed o2 resp rx dvt/stress ulcer prophylaxis. snf able to accept pt on noctural bipap but not continuous family deciding on snf placement limited options per case management due to exhausted snf medicare days Jorge Kee MD Jun 10, 2020 09:24
--- NOTE | 2020-06-10 10:56 | Infectious Diseases Prog Note ---
Assessment/Plan Assessment/Plan antibiotics : cefepime 11 .23,20 - A 1. Urinary tract infection with E. coli s/p rx 2. MRSA nasal colonization. 3. CHF. 4. COPD. 5. Seizures. 6. Dementia. 7. He is negative for COVID-19. 8. pneumonia 9. respiratory failure P 1. continue cefepime 1 more day 2. will follow up cultures Subjective ROS Limited/Unobtainable: Yes Allergies: Coded Allergies: PENICILLINS (Unverified Allergy, Unknown, 08/11/19) Objective Last 24 Hour Vital Signs Date Time Temp Pulse Resp B/P (MAP) Pulse Ox O2 Delivery O2 Flow Rate FiO2 06/10/20 08:37 Bi-pap Bi-pap 06/10/20 08:00 97.8 85 24 148/81 (103) 98 93 06/10/20 08:00 30 06/10/20 07:50 77 06/10/20 07:30 97 Bi-Pap 30 06/10/20 04:00 30 06/10/20 04:00 98.9 96 28 154/83 (106) 99 96 06/10/20 03:24 91 30 99 30 06/10/20 03:18 76 06/10/20 00:00 98.1 94 22 156/83 (107) 100 93 06/10/20 00:00 30 06/09/20 23:29 99 17 100 30 06/09/20 23:01 97 06/09/20 21:00 Bi-pap Bi-pap 06/09/20 20:00 30 06/09/20 20:00 98.1 82 26 140/86 (104) 100 93 06/09/20 19:38 94 06/09/20 19:06 92 24 98 30 06/09/20 19:06 98 Bi-Pap 30 06/09/20 16:00 92 06/09/20 16:00 30 06/09/20 16:00 97.6 93 20 143/97 (112) 99 93 06/09/20 14:45 90 23 97 30 06/09/20 12:00 98.1 97 20 145/82 (103) 100 97 06/09/20 12:00 30 06/09/20 12:00 99 Height (Feet): 5 Height (Inches): 6.00 Weight (Pounds): 137 HEENT: other - on bipap Respiratory/Chest: lungs clear Cardiovascular: normal rate, regular rhythm, no gallop/murmur Abdomen: soft, non tender, other - GT Extremities: no edema Laboratory Tests Test 06/10/20 05:40 06/10/20 06:51 White Blood Count 7.3 K/UL (4.8-10.8) Red Blood Count 3.70 M/UL (4.70-6.10) L Hemoglobin 11.9 G/DL (14.2-18.0) L Hematocrit 35.2 % (42.0-52.0) L Mean Corpuscular Volume 95 FL (80-99) Mean Corpuscular Hemoglobin 32.2 PG (27.0-31.0) H Mean Corpuscular Hemoglobin Concent 33.9 G/DL (32.0-36.0) Red Cell Distribution Width 16.2 % (11.6-14.8) H Platelet Count 141 K/UL (150-450) L Mean Platelet Volume 11.0 FL (6.5-10.1) H Neutrophils (%) (Auto) 63.3 % (45.0-75.0) Lymphocytes (%) (Auto) 22.9 % (20.0-45.0) Monocytes (%) (Auto) 9.7 % (1.0-10.0) Eosinophils (%) (Auto) 2.9 % (0.0-3.0) Basophils (%) (Auto) 1.3 % (0.0-2.0) Sodium Level 138 MMOL/L (136-145) Potassium Level 4.3 MMOL/L (3.5-5.1) Chloride Level 99 MMOL/L (98-107) Carbon Dioxide Level 39 MMOL/L (21-32) H Anion Gap 0 mmol/L (5-15) L Blood Urea Nitrogen 20 mg/dL (7-18) H Creatinine 0.5 MG/DL (0.55-1.30) L Estimat Glomerular Filtration Rate > 60 mL/min (>60) Glucose Level 107 MG/DL (74-106) H Calcium Level 8.5 MG/DL (8.5-10.1) Magnesium Level 2.2 MG/DL (1.8-2.4) Pro-B-Type Natriuretic Peptide 1253 pg/mL (0-125) H Arterial Blood pH 7.424 (7.350-7.450) Arterial Blood Partial Pressure CO2 57.7 mmHg (35.0-45.0) *H Arterial Blood Partial Pressure O2 83.0 mmHg (75.0-100.0) Arterial Blood HCO3 36.9 mmol/L (22.0-26.0) H Arterial Blood Oxygen Saturation 95.4 % (95-100) Arterial Blood Base Excess 10.6 (-2-2) *H Apollo Test Positive Current Medications Medications (Trade) Dose Ordered Sig/Mayela Route PRN Reason Start Time Stop Time Status Last Admin Dose Admin Cefepime HCl 2 gm/ Dextrose 55 ml @ 110 mls/hr Q24H IVPB 06/09/20 17:00 06/11/20 23:59 06/09/20 17:21 Clonidine HCl (Catapres Tab) 0.1 mg Q4H PRN ORAL SBP >160 05/08/20 22:15 08/06/20 22:14 Levetiracetam (Keppra) 250 mg DAILY GT 05/19/20 15:11 06/18/20 15:10 06/10/20 09:08 Potassium Chloride (K-Dur) 20 meq DAILY GT 05/13/20 09:00 08/11/20 08:59 06/10/20 09:09 Josué Light MD Jun 10, 2020 10:56
[2020-06-10 12:00] VITALS: BP 145/76
[2020-06-10] MEDS ORDERED: Cefepime HCl 2 GM in D5W 55 ML IVPB SCH (12:15)
[2020-06-10] MEDS: Heparin 5000 units/ml inj SUBQ SCH ×2 (13:00→21:49)
[2020-06-10] MEDS: Multivitamins W/Minerals 15 ML UDC GT SCH (13:19)
[2020-06-10] MEDS: Ascorbic Acid 500mg tab GT SCH (13:26)
[2020-06-10 16:00] VITALS: BP 142/77
--- NOTE | 2020-06-10 16:00 | Surgery Progress Note ---
Surgery Progress Note Subjective Symptoms: improved, tolerating diet, passing flatus, BM, other Objective Last 24 Hour Vital Signs Date Time Temp Pulse Resp B/P (MAP) Pulse Ox O2 Delivery O2 Flow Rate FiO2 06/10/20 13:17 75 145/76 06/10/20 12:00 30 06/10/20 12:00 75 06/10/20 12:00 98.1 82 24 145/76 (99) 98 93 06/10/20 08:37 Bi-pap Bi-pap 06/10/20 08:00 97.8 85 24 148/81 (103) 98 93 06/10/20 08:00 30 06/10/20 07:54 87 27 99 30 06/10/20 07:50 77 06/10/20 07:30 97 Bi-Pap 30 06/10/20 04:00 30 06/10/20 04:00 98.9 96 28 154/83 (106) 99 96 06/10/20 03:24 91 30 99 30 06/10/20 03:18 76 06/10/20 00:00 98.1 94 22 156/83 (107) 100 93 06/10/20 00:00 30 06/09/20 23:29 99 17 100 30 06/09/20 23:01 97 06/09/20 21:00 Bi-pap Bi-pap 06/09/20 20:00 30 06/09/20 20:00 98.1 82 26 140/86 (104) 100 93 06/09/20 19:38 94 06/09/20 19:06 92 24 98 30 06/09/20 19:06 98 Bi-Pap 30 06/09/20 16:00 92 06/09/20 16:00 30 06/09/20 16:00 97.6 93 20 143/97 (112) 99 93 I&O Intake and Output 06/09/20 06/10/20 19:00 07:00 Intake Total 115 ml 665 ml Output Total 550 ml 300 ml Balance -435 ml 365 ml Intake Free Water 75 ml 225 ml Tube Feeding 40 ml 440 ml Output Urine Total 550 ml 300 ml # Bowel Movements 1 Dressing: saturated Cardiovascular: RSR Respiratory: decreased breath sounds Abdomen: non-tender, present bowel sounds Extremities: no tenderness, no cyanosis Laboratory Tests Test 06/10/20 05:40 06/10/20 06:51 White Blood Count 7.3 K/UL (4.8-10.8) Red Blood Count 3.70 M/UL (4.70-6.10) L Hemoglobin 11.9 G/DL (14.2-18.0) L Hematocrit 35.2 % (42.0-52.0) L Mean Corpuscular Volume 95 FL (80-99) Mean Corpuscular Hemoglobin 32.2 PG (27.0-31.0) H Mean Corpuscular Hemoglobin Concent 33.9 G/DL (32.0-36.0) Red Cell Distribution Width 16.2 % (11.6-14.8) H Platelet Count 141 K/UL (150-450) L Mean Platelet Volume 11.0 FL (6.5-10.1) H Neutrophils (%) (Auto) 63.3 % (45.0-75.0) Lymphocytes (%) (Auto) 22.9 % (20.0-45.0) Monocytes (%) (Auto) 9.7 % (1.0-10.0) Eosinophils (%) (Auto) 2.9 % (0.0-3.0) Basophils (%) (Auto) 1.3 % (0.0-2.0) Sodium Level 138 MMOL/L (136-145) Potassium Level 4.3 MMOL/L (3.5-5.1) Chloride Level 99 MMOL/L (98-107) Carbon Dioxide Level 39 MMOL/L (21-32) H Anion Gap 0 mmol/L (5-15) L Blood Urea Nitrogen 20 mg/dL (7-18) H Creatinine 0.5 MG/DL (0.55-1.30) L Estimat Glomerular Filtration Rate > 60 mL/min (>60) Glucose Level 107 MG/DL (74-106) H Calcium Level 8.5 MG/DL (8.5-10.1) Magnesium Level 2.2 MG/DL (1.8-2.4) Pro-B-Type Natriuretic Peptide 1253 pg/mL (0-125) H Arterial Blood pH 7.424 (7.350-7.450) Arterial Blood Partial Pressure CO2 57.7 mmHg (35.0-45.0) *H Arterial Blood Partial Pressure O2 83.0 mmHg (75.0-100.0) Arterial Blood HCO3 36.9 mmol/L (22.0-26.0) H Arterial Blood Oxygen Saturation 95.4 % (95-100) Arterial Blood Base Excess 10.6 (-2-2) *H Apollo Test Positive Plan Problems: (1) Deep tissue injury Assessment & Plan: Patient identified to have bilateral heel concerns for potential developing DTI. Soft boggy no fluid collection no acute injury at this time. Patient identified to have sacral erythema and skin changes with concerns for developing deep tissue injury as well. No open areas. No fluid collections no fluctuance no drainage. On the scrotum patient is identified to have edema erythema and some abrasion along with incontinence associated dermatitis in the area. Patient identified to have abrasion to the nasal brim secondary to a facemask placement. Patient is chronically ill elderly and malnourished. Wound evaluated and care plan initiated. Treatment plan Apply skin protectant to the nasal bridge followed by foam dressing prior to facemask placement. Patient currently requires oxygen supplementation and therefore important to ensure receiving such along with protection of underlying epidermis. Apply OPTi foam to heels change every 3 days offload pressure with pillows Apply OPTi foam to sacral area monitor for incontinence change accordingly every 3 days and as needed saturation. Soft towel under scrotum. Continue with respiratory supportive care Turn every 2 hours Offload pressure with pillows Continue tube feeds nutritional optimization we will follow with recommendations thank you for let me participate patient's care (2) Dementia with behavioral problem (3) UTI (urinary tract infection) (4) Elevated troponin I level (5) AMS (altered mental status) (6) Dysphagia Assessment & Plan: DAILY ESTIMATED NEEDS: Needs based on Pulmonary, cardiac, 62kg 25-30 kcals/kg 5564-5250 total kcals 1-1.5 g protein/kg 62-93 g total protein 25-30 mL/kg 1208-0444 total fluid mLs NUTRITION DIAGNOSIS: Swallowing difficulty r/t dysphagia as evidenced by pt is PEG dep, currently on continuous BIPAP. CURRENT TF: Glucerna 1.5 @ 40ml/hr ENTERAL NUTRITION RECOMMENDATIONS: Glucerna 1.5 goal of 45ml/hr x 24 hrs to provide 1080ml, 1620 kcal, 89g pro, 820ml free water * Maintain carb controlled TF of Glucerna 1.5 while CO2 critically elevated * As medically appropriate, increase goal rate to 45ml/hr x 24 hrs to better meet nutritional needs. * HOB over 30 degrees/ water flush per MD ADDITIONAL RECOMMENDATIONS: 1) Monitor BIPAP usage, safety of GT feeds -> continuous BIPAP at this time 2) Lytes daily, replete as needed Current TF Glucerna 1.5 @goal of 40ml/hr provides 2419mg K/day 3) Calibrated bed scale wts (Bed scale shows uptrend: 65kg-> 71kg) 4) Rec HgA1C for eval of BG control 5) F/up w/ WC eval: Continue MVI and Vit C (7) Seizure (8) NSTEMI (non-ST elevated myocardial infarction) (9) Respiratory insufficiency Assessment & Plan: constant required bipap ? trach dnr/dni discussed with pcp and pulm Duplex Doppler interrogation of the veins in both upper extremity is performed from the internal jugular veins to the radial and ulnar veins. No thrombus is identified. Basilic and cephalic veins are also patent bilaterally. There is mild subcutaneous edema of the right upper extremity. IMPRESSION: No evidence of deep venous thrombosis involving the upper extremities. Benitez Mayorga Jun 10, 2020 16:00
[2020-06-10] MEDS: Cefepime HCl 2 GM in D5W 55 ML IVPB SCH (17:23)
[2020-06-10 20:00] VITALS: BP 130/69
[2020-06-10] MEDS: Tamsulosin 0.4mg cap ORAL SCH (21:48)
--- NOTE | 2020-06-10 23:02 | Cardiology Progress Note ---
Subjective DATE OF SERVICE: Jun 10, 2020 Remains on bipap at times. Comfortable on O2 by n/c during day. BP remains well controlled. BNP increased to 2500 range, and patient was diuresed further with BNP decreas ing to 1250. Monitor: sinus with occ run of VTach. ABG (06/10) 7.42/58/83 Objective Last 24 Hour Vital Signs Date Time Temp Pulse Resp B/P (MAP) Pulse Ox O2 Delivery O2 Flow Rate FiO2 06/10/20 21:48 71 130/69 06/10/20 20:00 97.9 71 26 130/69 (89) 100 06/10/20 19:52 71 06/10/20 19:01 98 Nasal Cannula 2.0 28 06/10/20 16:00 98.3 96 21 142/77 (98) 99 96 06/10/20 16:00 3.0 06/10/20 15:43 96 06/10/20 13:17 75 145/76 06/10/20 12:00 30 06/10/20 12:00 75 06/10/20 12:00 98.1 82 24 145/76 (99) 98 93 06/10/20 08:37 Bi-pap Bi-pap 06/10/20 08:00 97.8 85 24 148/81 (103) 98 93 06/10/20 08:00 30 06/10/20 07:54 87 27 99 30 06/10/20 07:50 77 06/10/20 07:30 97 Bi-Pap 30 06/10/20 04:00 30 06/10/20 04:00 98.9 96 28 154/83 (106) 99 96 06/10/20 03:24 91 30 99 30 06/10/20 03:18 76 06/10/20 00:00 98.1 94 22 156/83 (107) 100 93 06/10/20 00:00 30 06/09/20 23:29 99 17 100 30 06/09/20 23:01 97 ROS: unchanged from my evaluation of 05/06/20 HEENT: normal ENT inspection, other - bipap mask RHYTHM: NSR, VT LUNGS: diminished breath sounds, left-sided rhonchi CARDIAC: normal rate, regular rhythm, normal S1 and S2 ABDOMEN: non tender, soft, G-Tube intact EXTREMITIES: non-pitting, No edema Laboratory Tests Test 06/10/20 05:40 06/10/20 06:51 White Blood Count 7.3 K/UL (4.8-10.8) Red Blood Count 3.70 M/UL (4.70-6.10) L Hemoglobin 11.9 G/DL (14.2-18.0) L Hematocrit 35.2 % (42.0-52.0) L Mean Corpuscular Volume 95 FL (80-99) Mean Corpuscular Hemoglobin 32.2 PG (27.0-31.0) H Mean Corpuscular Hemoglobin Concent 33.9 G/DL (32.0-36.0) Red Cell Distribution Width 16.2 % (11.6-14.8) H Platelet Count 141 K/UL (150-450) L Mean Platelet Volume 11.0 FL (6.5-10.1) H Neutrophils (%) (Auto) 63.3 % (45.0-75.0) Lymphocytes (%) (Auto) 22.9 % (20.0-45.0) Monocytes (%) (Auto) 9.7 % (1.0-10.0) Eosinophils (%) (Auto) 2.9 % (0.0-3.0) Basophils (%) (Auto) 1.3 % (0.0-2.0) Sodium Level 138 MMOL/L (136-145) Potassium Level 4.3 MMOL/L (3.5-5.1) Chloride Level 99 MMOL/L (98-107) Carbon Dioxide Level 39 MMOL/L (21-32) H Anion Gap 0 mmol/L (5-15) L Blood Urea Nitrogen 20 mg/dL (7-18) H Creatinine 0.5 MG/DL (0.55-1.30) L Estimat Glomerular Filtration Rate > 60 mL/min (>60) Glucose Level 107 MG/DL (74-106) H Calcium Level 8.5 MG/DL (8.5-10.1) Magnesium Level 2.2 MG/DL (1.8-2.4) Pro-B-Type Natriuretic Peptide 1253 pg/mL (0-125) H Arterial Blood pH 7.424 (7.350-7.450) Arterial Blood Partial Pressure CO2 57.7 mmHg (35.0-45.0) *H Arterial Blood Partial Pressure O2 83.0 mmHg (75.0-100.0) Arterial Blood HCO3 36.9 mmol/L (22.0-26.0) H Arterial Blood Oxygen Saturation 95.4 % (95-100) Arterial Blood Base Excess 10.6 (-2-2) *H Apollo Test Positive Assessment/Plan Assessment/Plan E.coli UTI Sepsis Metabolic and toxic encephalopathies Cerebrovascular disease with dementia Acute myocardial ischemia and possible NSTEMI Dehydration/hypernatremia Hypertension/HHD Ac/chronic respiratory acidosis now compensated Respiratory failure improving, but still requiring bipap support Ac diastolic CHF; BNP relatively unchanged. Metabolic acidosis resolved Pleural effusions Ac/chr renal failure with azotemia Paroxysmal ventricular tachycardia Hypokalemia Continue anti-anginal regimen including nitrates. Maintain current antiHTN regimen. Antimicrobial therapy per ID. Maintain adequate free water per Gtube. Coontinue periodic diuretics rx; trend BNP. Bipap support-taper to nighttime only. Real Magana MD Jun 10, 2020 23:02
[2020-06-11] VITALS: BP 149/80
[2020-06-11 04:00] VITALS: BP 140/78
[2020-06-11 08:00] VITALS: BP 140/71
[2020-06-11] MEDS: levETIRAcetam 500mg/5ml Liquid GT SCH (08:35)
[2020-06-11] MEDS: Ascorbic Acid 500mg tab GT SCH (08:35)
[2020-06-11] MEDS: Multivitamins W/Minerals 15 ML UDC GT SCH (08:36)
[2020-06-11] MEDS: Heparin 5000 units/ml inj SUBQ SCH ×2 (08:37→20:25)
--- NOTE | 2020-06-11 09:24 | Pulmonology Progress Note ---
Subjective ROS Limited/Unobtainable: Yes Constitutional: Reports: other - looks better Allergies: Coded Allergies: PENICILLINS (Unverified Allergy, Unknown, 08/11/19) All Systems: reviewed and negative except above Subjective care noted off BIPAP comfortable on NC Objective Last 24 Hour Vital Signs Date Time Temp Pulse Resp B/P (MAP) Pulse Ox O2 Delivery O2 Flow Rate FiO2 06/11/20 09:12 Nasal Cannula 3.0 Nasal Cannula 3.0 06/11/20 08:36 84 140/71 06/11/20 08:00 98.0 84 22 140/71 (94) 99 06/11/20 08:00 68 06/11/20 08:00 3.0 06/11/20 06:45 97 Nasal Cannula 2.0 28 06/11/20 04:00 99 06/11/20 04:00 98.1 92 22 140/78 (98) 99 06/11/20 04:00 3.0 06/11/20 00:00 67 06/11/20 00:00 3.0 06/11/20 00:00 97.7 70 23 149/80 (103) 100 06/10/20 21:48 71 130/69 06/10/20 21:00 Nasal Cannula 3.0 Nasal Cannula 3.0 06/10/20 20:00 97.9 71 26 130/69 (89) 100 06/10/20 20:00 3.0 06/10/20 19:52 71 06/10/20 19:01 98 Nasal Cannula 2.0 28 06/10/20 16:00 98.3 96 21 142/77 (98) 99 96 06/10/20 16:00 3.0 06/10/20 15:43 96 06/10/20 13:17 75 145/76 06/10/20 12:00 30 06/10/20 12:00 75 06/10/20 12:00 98.1 82 24 145/76 (99) 98 93 Intake and Output 06/10/20 06/11/20 19:00 07:00 Intake Total 390 ml 780 ml Balance 390 ml 780 ml Intake Free Water 150 ml 300 ml Tube Feeding 240 ml 480 ml # Voids 3 # Bowel Movements 1 1 Objective WDWN NAD reduced breath sounds bilaterally without rhonchi or wheeze [id number] without MRG NABS nontender no CC mild edema as is nonfocal off BIPAP reduced LOC Current Medications Medications (Trade) Dose Ordered Sig/Mayela Route PRN Reason Start Time Stop Time Status Last Admin Dose Admin Ascorbic Acid (Vitamin C) 500 mg DAILY GT 06/10/20 13:00 07/10/20 12:59 06/11/20 08:35 Carvedilol (Coreg) 3.125 mg EVERY 12 HOURS GT 06/10/20 13:00 06/12/20 12:59 06/11/20 08:36 Cefepime HCl 2 gm/ Dextrose 55 ml @ 110 mls/hr Q24H IVPB 06/09/20 17:00 06/11/20 23:59 06/10/20 17:23 Clonidine HCl (Catapres Tab) 0.1 mg Q4H PRN ORAL SBP >160 05/08/20 22:15 08/06/20 22:14 Heparin Sodium (Porcine) (Heparin 5000 units/ml) 5,000 units EVERY 12 HOURS SUBQ 06/10/20 13:00 06/12/20 12:59 06/11/20 08:37 Levetiracetam (Keppra) 250 mg DAILY GT 05/19/20 15:11 06/18/20 15:10 06/11/20 08:35 Multivitamins (Multivitamins W/ Minerals 15ml Liquid) 5 ml DAILY GT 06/10/20 13:00 06/12/20 12:59 06/11/20 08:36 Potassium Chloride (K-Dur) 20 meq DAILY GT 05/13/20 09:00 08/11/20 08:59 06/11/20 08:35 Tamsulosin HCl (Flomax) 0.4 mg BEDTIME ORAL 06/10/20 21:00 06/12/20 20:59 06/10/20 21:48 Assessment/Plan Assessment/Plan ASSESSMENT: Pulmonary congestion, respiratory failure, hypoxemia dementia, G-tube, seizure disorder, congestive heart failure, COPD sepsis, and acute AR. acute on chronic CO2 retention PLAN: oxygen as is; stable thus far. Breathing treatments and aspiration precautions. Monitor blood gases for change.keep negative. seizure medications. feeds and monitor residuals; DNR noted DVT prophylaxis; monitor imaging guarded and at risk for decompensation dc planning for now impression, plan, and exam edited and reviewed in detail care discussed with Attila Yuan MD Jun 11, 2020 09:24
[2020-06-11] MEDS ORDERED: Tubing IV Secondary IV ONE (10:12)
[2020-06-11] MEDS ORDERED: NS 275ml ONE (10:12)
--- NOTE | 2020-06-11 11:52 | Infectious Diseases Prog Note ---
Assessment/Plan Assessment/Plan antibiotics : cefepime 11 .23,20 - A 1. Urinary tract infection with E. coli s/p rx 2. MRSA nasal colonization. 3. CHF. 4. COPD. 5. Seizures. 6. Dementia. 7. He is negative for COVID-19. 8. pneumonia s/p rx 9. respiratory failure P 1. d/c cefepime 2. observe off antibiotics 3. will follow up cultures Subjective ROS Limited/Unobtainable: Yes Allergies: Coded Allergies: PENICILLINS (Unverified Allergy, Unknown, 08/11/19) Objective Last 24 Hour Vital Signs Date Time Temp Pulse Resp B/P (MAP) Pulse Ox O2 Delivery O2 Flow Rate FiO2 06/11/20 09:12 Nasal Cannula 3.0 Nasal Cannula 3.0 06/11/20 08:36 84 140/71 06/11/20 08:00 98.0 84 22 140/71 (94) 99 06/11/20 08:00 68 06/11/20 08:00 3.0 06/11/20 06:45 97 Nasal Cannula 2.0 28 06/11/20 04:00 99 06/11/20 04:00 98.1 92 22 140/78 (98) 99 06/11/20 04:00 3.0 06/11/20 00:00 67 06/11/20 00:00 3.0 06/11/20 00:00 97.7 70 23 149/80 (103) 100 06/10/20 21:48 71 130/69 06/10/20 21:00 Nasal Cannula 3.0 Nasal Cannula 3.0 06/10/20 20:00 97.9 71 26 130/69 (89) 100 06/10/20 20:00 3.0 06/10/20 19:52 71 06/10/20 19:01 98 Nasal Cannula 2.0 28 06/10/20 16:00 98.3 96 21 142/77 (98) 99 96 06/10/20 16:00 3.0 06/10/20 15:43 96 06/10/20 13:17 75 145/76 06/10/20 12:00 30 06/10/20 12:00 75 06/10/20 12:00 98.1 82 24 145/76 (99) 98 93 Height (Feet): 5 Height (Inches): 6.00 Weight (Pounds): 137 Respiratory/Chest: lungs clear Cardiovascular: normal rate, regular rhythm, no gallop/murmur Abdomen: soft, non tender, other - GT Extremities: no edema Current Medications Medications (Trade) Dose Ordered Sig/Mayela Route PRN Reason Start Time Stop Time Status Last Admin Dose Admin Ascorbic Acid (Vitamin C) 500 mg DAILY GT 06/10/20 13:00 07/10/20 12:59 06/11/20 08:35 Carvedilol (Coreg) 3.125 mg EVERY 12 HOURS GT 06/10/20 13:00 06/12/20 12:59 06/11/20 08:36 Cefepime HCl 2 gm/ Dextrose 55 ml @ 110 mls/hr Q24H IVPB 06/09/20 17:00 06/11/20 23:59 06/10/20 17:23 Clonidine HCl (Catapres Tab) 0.1 mg Q4H PRN ORAL SBP >160 05/08/20 22:15 08/06/20 22:14 Heparin Sodium (Porcine) (Heparin 5000 units/ml) 5,000 units EVERY 12 HOURS SUBQ 06/10/20 13:00 06/12/20 12:59 06/11/20 08:37 Levetiracetam (Keppra) 250 mg DAILY GT 05/19/20 15:11 06/18/20 15:10 06/11/20 08:35 Multivitamins (Multivitamins W/ Minerals 15ml Liquid) 5 ml DAILY GT 06/10/20 13:00 06/12/20 12:59 06/11/20 08:36 Potassium Chloride (K-Dur) 20 meq DAILY GT 05/13/20 09:00 08/11/20 08:59 06/11/20 08:35 Tamsulosin HCl (Flomax) 0.4 mg BEDTIME ORAL 06/10/20 21:00 06/12/20 20:59 06/10/20 21:48 Josué Light MD Jun 11, 2020 11:52
[2020-06-11 12:00] VITALS: BP 130/87
--- NOTE | 2020-06-11 15:03 | General Progress Note ---
Subjective ROS Limited/Unobtainable: Yes Constitutional: Reports: malaise, weakness HEENT: Reports: no symptoms Cardiovascular: Reports: no symptoms Respiratory: Reports: cough, shortness of breath, sputum Gastrointestinal/Abdominal: Reports: difficulty swallowing Genitourinary: Reports: incontinence Neurologic/Psychiatric: Reports: pre-existing deficit, seizure Endocrine: Reports: no symptoms Hematologic/Lymphatic: Reports: anemia Allergies: Coded Allergies: PENICILLINS (Unverified Allergy, Unknown, 08/11/19) All Systems: reviewed and negative except above Subjective no events. off bipap. on nasal cannula. appears no fever or chills. no sob. tolerating feeds.no szs Objective Last 24 Hour Vital Signs Date Time Temp Pulse Resp B/P (MAP) Pulse Ox O2 Delivery O2 Flow Rate FiO2 06/11/20 12:00 3.0 06/11/20 12:00 98.0 85 22 130/87 (101) 100 06/11/20 11:47 71 06/11/20 09:12 Nasal Cannula 3.0 Nasal Cannula 3.0 06/11/20 08:36 84 140/71 06/11/20 08:00 98.0 84 22 140/71 (94) 99 06/11/20 08:00 68 06/11/20 08:00 3.0 06/11/20 06:45 97 Nasal Cannula 2.0 28 06/11/20 04:00 99 06/11/20 04:00 98.1 92 22 140/78 (98) 99 06/11/20 04:00 3.0 06/11/20 00:00 67 06/11/20 00:00 3.0 06/11/20 00:00 97.7 70 23 149/80 (103) 100 06/10/20 21:48 71 130/69 06/10/20 21:00 Nasal Cannula 3.0 Nasal Cannula 3.0 06/10/20 20:00 97.9 71 26 130/69 (89) 100 06/10/20 20:00 3.0 06/10/20 19:52 71 06/10/20 19:01 98 Nasal Cannula 2.0 28 06/10/20 16:00 98.3 96 21 142/77 (98) 99 96 06/10/20 16:00 3.0 06/10/20 15:43 96 Intake and Output 06/10/20 06/11/20 19:00 07:00 Intake Total 390 ml 780 ml Balance 390 ml 780 ml Intake Free Water 150 ml 300 ml Tube Feeding 240 ml 480 ml # Voids 3 # Bowel Movements 1 1 Height (Feet): 5 Height (Inches): 6.00 Weight (Pounds): 137 Objective General Appearance: WD/WN, alert, confused. on bipap EENT: normal ENT inspection Neck: normal alignment Cardiovascular: normal rate Respiratory/Chest: chest wall non-tender, lungs clear, normal breath sounds Abdomen: normal bowel sounds, non tender, soft, no organomegaly Edema: no edema noted Arm (L), no edema noted Arm (R) Neurologic: alert, disoriented Assessment/Plan Problem List: (1) Seizure ICD Codes: R56.9 - Unspecified convulsions SNOMED: 94758264 (2) Dysphagia ICD Codes: R13.10 - Dysphagia, unspecified SNOMED: 96621608, 798677961 (3) UTI (urinary tract infection) ICD Codes: N39.0 - Urinary tract infection, site not specified SNOMED: 88913073 (4) Elevated troponin I level ICD Codes: R77.8 - Other specified abnormalities of plasma proteins SNOMED: 972130939 (5) AMS (altered mental status) ICD Codes: R41.82 - Altered mental status, unspecified SNOMED: 711630394 (6) NSTEMI (non-ST elevated myocardial infarction) ICD Codes: I21.4 - Non-ST elevation (NSTEMI) myocardial infarction SNOMED: 57626787 Status: stable Assessment/Plan: nasal cannula during the day bipap at personnel monitor abg tube feeds monitor residuals sz rx monitor labs anxiolytics as needed o2 resp rx dvt/stress ulcer prophylaxis. dc planning to snf when bed available Jorge Kee MD Jun 11, 2020 15:03
[2020-06-11 16:00] VITALS: BP 151/64
[2020-06-11] MEDS: Cefepime HCl 2 GM in D5W 55 ML IVPB SCH (18:03)
--- NOTE | 2020-06-11 18:53 | Surgery Progress Note ---
Surgery Progress Note Subjective Symptoms: improved, tolerating diet, passing flatus, BM Objective Last 24 Hour Vital Signs Date Time Temp Pulse Resp B/P (MAP) Pulse Ox O2 Delivery O2 Flow Rate FiO2 06/11/20 16:00 98.0 85 22 151/64 (93) 100 06/11/20 16:00 3.0 06/11/20 15:14 69 06/11/20 12:00 3.0 06/11/20 12:00 98.0 85 22 130/87 (101) 100 06/11/20 11:47 71 06/11/20 09:12 Nasal Cannula 3.0 Nasal Cannula 3.0 06/11/20 08:36 84 140/71 06/11/20 08:00 98.0 84 22 140/71 (94) 99 06/11/20 08:00 68 06/11/20 08:00 3.0 06/11/20 06:45 97 Nasal Cannula 2.0 28 06/11/20 04:00 99 06/11/20 04:00 98.1 92 22 140/78 (98) 99 06/11/20 04:00 3.0 06/11/20 00:00 67 06/11/20 00:00 3.0 06/11/20 00:00 97.7 70 23 149/80 (103) 100 06/10/20 21:48 71 130/69 06/10/20 21:00 Nasal Cannula 3.0 Nasal Cannula 3.0 06/10/20 20:00 97.9 71 26 130/69 (89) 100 06/10/20 20:00 3.0 06/10/20 19:52 71 06/10/20 19:01 98 Nasal Cannula 2.0 28 I&O Intake and Output 06/10/20 06/11/20 19:00 07:00 Intake Total 390 ml 780 ml Balance 390 ml 780 ml Intake Free Water 150 ml 300 ml Tube Feeding 240 ml 480 ml # Voids 3 # Bowel Movements 1 1 Dressing: saturated Cardiovascular: RSR Respiratory: decreased breath sounds Abdomen: non-tender, present bowel sounds Extremities: no tenderness, no cyanosis Plan Problems: (1) Deep tissue injury Assessment & Plan: Patient identified to have bilateral heel concerns for potential developing DTI. Soft boggy no fluid collection no acute injury at this time. Patient identified to have sacral erythema and skin changes with concerns for developing deep tissue injury as well. No open areas. No fluid collections no fluctuance no drainage. On the scrotum patient is identified to have edema erythema and some abrasion along with incontinence associated dermatitis in the area. Patient identified to have abrasion to the nasal brim secondary to a facemask placement. Patient is chronically ill elderly and malnourished. Wound evaluated and care plan initiated. Treatment plan Apply skin protectant to the nasal bridge followed by foam dressing prior to facemask placement. Patient currently requires oxygen supplementation and therefore important to ensure receiving such along with protection of underlying epidermis. Apply OPTi foam to heels change every 3 days offload pressure with pillows Apply OPTi foam to sacral area monitor for incontinence change accordingly every 3 days and as needed saturation. Soft towel under scrotum. Continue with respiratory supportive care Turn every 2 hours Offload pressure with pillows Continue tube feeds nutritional optimization we will follow with recommendations thank you for let me participate patient's care (2) Dementia with behavioral problem (3) UTI (urinary tract infection) (4) Elevated troponin I level (5) AMS (altered mental status) (6) Dysphagia Assessment & Plan: DAILY ESTIMATED NEEDS: Needs based on Pulmonary, cardiac, 62kg 25-30 kcals/kg 3617-8936 total kcals 1-1.5 g protein/kg 62-93 g total protein 25-30 mL/kg 8095-2090 total fluid mLs NUTRITION DIAGNOSIS: Swallowing difficulty r/t dysphagia as evidenced by pt is PEG dep, currently on continuous BIPAP. CURRENT TF: Glucerna 1.5 @ 40ml/hr ENTERAL NUTRITION RECOMMENDATIONS: Glucerna 1.5 goal of 45ml/hr x 24 hrs to provide 1080ml, 1620 kcal, 89g pro, 820ml free water * Maintain carb controlled TF of Glucerna 1.5 while CO2 critically elevated * As medically appropriate, increase goal rate to 45ml/hr x 24 hrs to better meet nutritional needs. * HOB over 30 degrees/ water flush per MD ADDITIONAL RECOMMENDATIONS: 1) Monitor BIPAP usage, safety of GT feeds -> continuous BIPAP at this time 2) Lytes daily, replete as needed Current TF Glucerna 1.5 @goal of 40ml/hr provides 2419mg K/day 3) Calibrated bed scale wts (Bed scale shows uptrend: 65kg-> 71kg) 4) Rec HgA1C for eval of BG control 5) F/up w/ WC eval: Continue MVI and Vit C (7) Seizure (8) NSTEMI (non-ST elevated myocardial infarction) (9) Respiratory insufficiency Assessment & Plan: constant required bipap ? trach dnr/dni discussed with pcp and pulm Duplex Doppler interrogation of the veins in both upper extremity is performed from the internal jugular veins to the radial and ulnar veins. No thrombus is identified. Basilic and cephalic veins are also patent bilaterally. There is mild subcutaneous edema of the right upper extremity. IMPRESSION: No evidence of deep venous thrombosis involving the upper extremities. Benitez Mayorga Jun 11, 2020 18:53
[2020-06-11 20:00] VITALS: BP 134/77
[2020-06-11] MEDS: Tamsulosin 0.4mg cap ORAL SCH (20:24)
[2020-06-12] VITALS: BP 124/64
--- NOTE | 2020-06-12 01:50 | Cardiology Progress Note ---
Subjective DATE OF SERVICE: Jun 11, 2020 Remains on bipap at times. Comfortable on O2 by n/c during day. BP remains well controlled. BNP increased to 2500 range, and patient was diuresed further with BNP decreas ing to 1250. Monitor: sinus with occ run of VTach. ABG (06/10) 7.42/58/83 Objective Last 24 Hour Vital Signs Date Time Temp Pulse Resp B/P (MAP) Pulse Ox O2 Delivery O2 Flow Rate FiO2 06/12/20 00:00 98.2 82 24 124/64 (84) 100 06/11/20 21:00 Nasal Cannula 3.0 Nasal Cannula 3.0 06/11/20 20:23 85 134/77 06/11/20 20:00 98.2 85 20 134/77 (96) 100 06/11/20 20:00 3.0 06/11/20 19:05 87 06/11/20 19:03 100 Nasal Cannula 2.0 28 06/11/20 16:00 98.0 85 22 151/64 (93) 100 06/11/20 16:00 3.0 06/11/20 15:14 69 06/11/20 12:00 3.0 06/11/20 12:00 98.0 85 22 130/87 (101) 100 06/11/20 11:47 71 06/11/20 09:12 Nasal Cannula 3.0 Nasal Cannula 3.0 06/11/20 08:36 84 140/71 06/11/20 08:00 98.0 84 22 140/71 (94) 99 06/11/20 08:00 68 06/11/20 08:00 3.0 06/11/20 06:45 97 Nasal Cannula 2.0 28 06/11/20 04:00 99 06/11/20 04:00 98.1 92 22 140/78 (98) 99 06/11/20 04:00 3.0 ROS: unchanged from my evaluation of 05/06/20 HEENT: normal ENT inspection, other - bipap mask RHYTHM: NSR, VT LUNGS: diminished breath sounds, left-sided rhonchi CARDIAC: normal rate, regular rhythm, normal S1 and S2 ABDOMEN: non tender, soft, G-Tube intact EXTREMITIES: non-pitting, No edema Assessment/Plan Assessment/Plan E.coli UTI Sepsis Metabolic and toxic encephalopathies Cerebrovascular disease with dementia Acute myocardial ischemia and possible NSTEMI Dehydration/hypernatremia Hypertension/HHD Ac/chronic respiratory acidosis now compensated Respiratory failure improving, but still requiring bipap support Ac diastolic CHF; BNP relatively unchanged. Metabolic acidosis resolved Pleural effusions Ac/chr renal failure with azotemia Paroxysmal ventricular tachycardia Hypokalemia Continue anti-anginal regimen including nitrates. Maintain current antiHTN regimen. Antimicrobial therapy per ID. Maintain adequate free water per Gtube. Coontinue periodic diuretics rx; trend BNP. Patient may need low maintenance dose of oral furosemide. Bipap support-taper to nighttime only. Real Magana MD Jun 12, 2020 01:50
[2020-06-12 04:00] VITALS: BP 134/78
[2020-06-12 08:00] VITALS: BP 126/70
[2020-06-12] MEDS: Ascorbic Acid 500mg tab GT SCH (09:11)
[2020-06-12] MEDS: levETIRAcetam 500mg/5ml Liquid GT SCH (09:12)
[2020-06-12] MEDS: Heparin 5000 units/ml inj SUBQ SCH (09:14)
[2020-06-12] MEDS: Multivitamins W/Minerals 15 ML UDC GT SCH (09:15)
[2020-06-12 09:23] LABS: ANION GAP 0 mmol/L (5-15); BLOOD UREA NITROGEN 21 mg/dL (7-18); CALCIUM 8.7 MG/DL (8.5-10.1); CARBON DIOXIDE 35 MMOL/L (21-32); CHLORIDE 101 MMOL/L (98-107); CREATININE 0.4 MG/DL (0.55-1.30); SODIUM 136 MMOL/L (136-145)
[2020-06-12 09:26] LABS: POTASSIUM 5.7 MMOL/L (3.5-5.1)
--- NOTE | 2020-06-12 09:33 | Infectious Diseases Prog Note ---
Assessment/Plan Assessment/Plan A: 1. Pneumonia 2. MRSA nasal colonization. 3. CHF. 4. COPD. 5. Seizures. 6. Dementia. 7. He is negative for COVID-19. 8. Hypercapnic respiratory failure 9. Pleural effusion 10. Leukocytosis resolved PLAN: 1. Observe off antibiotic Subjective ROS Limited/Unobtainable: Yes Allergies: Coded Allergies: PENICILLINS (Unverified Allergy, Unknown, 08/11/19) Objective Last 24 Hour Vital Signs Date Time Temp Pulse Resp B/P (MAP) Pulse Ox O2 Delivery O2 Flow Rate FiO2 06/12/20 09:10 72 126/70 06/12/20 08:00 98.1 72 24 126/70 (88) 100 06/12/20 07:30 100 Nasal Cannula 3.0 32 06/12/20 04:00 3.0 06/12/20 04:00 98.1 85 21 134/78 (96) 100 06/12/20 03:42 87 06/12/20 00:00 98.2 82 24 124/64 (84) 100 06/11/20 23:25 70 06/11/20 21:00 Nasal Cannula 3.0 Nasal Cannula 3.0 06/11/20 20:23 85 134/77 06/11/20 20:00 98.2 85 20 134/77 (96) 100 06/11/20 20:00 3.0 06/11/20 19:05 87 06/11/20 19:03 100 Nasal Cannula 2.0 28 06/11/20 16:00 98.0 85 22 151/64 (93) 100 06/11/20 16:00 3.0 06/11/20 15:14 69 06/11/20 12:00 3.0 06/11/20 12:00 98.0 85 22 130/87 (101) 100 06/11/20 11:47 71 Height (Feet): 5 Height (Inches): 6.00 Weight (Pounds): 137 General Appearance: no acute distress HEENT: mucous membranes moist Respiratory/Chest: lungs clear, other - oxygen by nasal cannula Cardiovascular: normal rate Abdomen: soft, non tender, other - GT feeding Extremities: no edema, other - SCD of legs Neurologic/Psychiatric: other - sleeping Laboratory Tests Test 06/12/20 08:50 Sodium Level 136 MMOL/L (136-145) Potassium Level 5.7 MMOL/L (3.5-5.1) H Chloride Level 101 MMOL/L (98-107) Carbon Dioxide Level 35 MMOL/L (21-32) H Anion Gap 0 mmol/L (5-15) L Blood Urea Nitrogen 21 mg/dL (7-18) H Creatinine 0.4 MG/DL (0.55-1.30) L Estimat Glomerular Filtration Rate > 60 mL/min (>60) Glucose Level 128 MG/DL (74-106) H Calcium Level 8.7 MG/DL (8.5-10.1) Magnesium Level 2.0 MG/DL (1.8-2.4) Pro-B-Type Natriuretic Peptide 713 pg/mL (0-125) H Current Medications Medications (Trade) Dose Ordered Sig/Mayela Route PRN Reason Start Time Stop Time Status Last Admin Dose Admin Ascorbic Acid (Vitamin C) 500 mg DAILY GT 06/10/20 13:00 07/10/20 12:59 06/12/20 09:11 Carvedilol (Coreg) 3.125 mg EVERY 12 HOURS GT 06/10/20 13:00 06/12/20 12:59 06/12/20 09:10 Clonidine HCl (Catapres Tab) 0.1 mg Q4H PRN ORAL SBP >160 05/08/20 22:15 08/06/20 22:14 Heparin Sodium (Porcine) (Heparin 5000 units/ml) 5,000 units EVERY 12 HOURS SUBQ 06/10/20 13:00 06/12/20 12:59 06/12/20 09:14 Levetiracetam (Keppra) 250 mg DAILY GT 05/19/20 15:11 06/18/20 15:10 06/12/20 09:12 Multivitamins (Multivitamins W/ Minerals 15ml Liquid) 5 ml DAILY GT 06/10/20 13:00 06/12/20 12:59 06/12/20 09:15 Potassium Chloride (K-Dur) 20 meq DAILY GT 05/13/20 09:00 08/11/20 08:59 06/12/20 09:11 Tamsulosin HCl (Flomax) 0.4 mg BEDTIME ORAL 06/10/20 21:00 06/12/20 20:59 06/11/20 20:24 Luis Yanes MD Jun 12, 2020 09:33
--- NOTE | 2020-06-12 09:38 | Pulmonology Progress Note ---
Subjective ROS Limited/Unobtainable: Yes Constitutional: Reports: other - looks better Allergies: Coded Allergies: PENICILLINS (Unverified Allergy, Unknown, 08/11/19) All Systems: reviewed and negative except above Subjective care noted off BIPAP comfortable on NC Objective Last 24 Hour Vital Signs Date Time Temp Pulse Resp B/P (MAP) Pulse Ox O2 Delivery O2 Flow Rate FiO2 06/12/20 09:10 72 126/70 06/12/20 08:00 98.1 72 24 126/70 (88) 100 06/12/20 07:30 100 Nasal Cannula 3.0 32 06/12/20 04:00 3.0 06/12/20 04:00 98.1 85 21 134/78 (96) 100 06/12/20 03:42 87 06/12/20 00:00 98.2 82 24 124/64 (84) 100 06/11/20 23:25 70 06/11/20 21:00 Nasal Cannula 3.0 Nasal Cannula 3.0 06/11/20 20:23 85 134/77 06/11/20 20:00 98.2 85 20 134/77 (96) 100 06/11/20 20:00 3.0 06/11/20 19:05 87 06/11/20 19:03 100 Nasal Cannula 2.0 28 06/11/20 16:00 98.0 85 22 151/64 (93) 100 06/11/20 16:00 3.0 06/11/20 15:14 69 06/11/20 12:00 3.0 06/11/20 12:00 98.0 85 22 130/87 (101) 100 06/11/20 11:47 71 Intake and Output 06/11/20 06/12/20 19:00 07:00 Intake Total 705 ml 740 ml Output Total 550 ml Balance 705 ml 190 ml Intake Free Water 225 ml 300 ml Tube Feeding 480 ml 440 ml Output Urine Total 550 ml # Voids 2 # Bowel Movements 3 Objective WDWN NAD reduced breath sounds bilaterally without rhonchi or wheeze [id number] without MRG NABS nontender no CC mild edema as is nonfocal off BIPAP reduced LOC Laboratory Tests 06/12/20 08:50: Sodium Level 136, Potassium Level 5.7H, Chloride Level 101, Carbon Dioxide Level 35H, Anion Gap 0L, Blood Urea Nitrogen 21H, Creatinine 0.4L, Estimat Glomerular Filtration Rate > 60, Glucose Level 128H, Calcium Level 8.7, Magnesium Level 2.0, Pro-B-Type Natriuretic Peptide 713H Current Medications Medications (Trade) Dose Ordered Sig/Mayela Route PRN Reason Start Time Stop Time Status Last Admin Dose Admin Ascorbic Acid (Vitamin C) 500 mg DAILY GT 06/10/20 13:00 07/10/20 12:59 06/12/20 09:11 Carvedilol (Coreg) 3.125 mg EVERY 12 HOURS GT 06/10/20 13:00 06/12/20 12:59 06/12/20 09:10 Clonidine HCl (Catapres Tab) 0.1 mg Q4H PRN ORAL SBP >160 05/08/20 22:15 08/06/20 22:14 Heparin Sodium (Porcine) (Heparin 5000 units/ml) 5,000 units EVERY 12 HOURS SUBQ 06/10/20 13:00 06/12/20 12:59 06/12/20 09:14 Levetiracetam (Keppra) 250 mg DAILY GT 05/19/20 15:11 06/18/20 15:10 06/12/20 09:12 Multivitamins (Multivitamins W/ Minerals 15ml Liquid) 5 ml DAILY GT 06/10/20 13:00 06/12/20 12:59 06/12/20 09:15 Potassium Chloride (K-Dur) 20 meq DAILY GT 05/13/20 09:00 08/11/20 08:59 06/12/20 09:11 Tamsulosin HCl (Flomax) 0.4 mg BEDTIME ORAL 06/10/20 21:00 06/12/20 20:59 06/11/20 20:24 Assessment/Plan Assessment/Plan ASSESSMENT: Pulmonary congestion, respiratory failure, hypoxemia dementia, G-tube, seizure disorder, congestive heart failure, COPD sepsis, and acute MS. acute on chronic CO2 retention PLAN: oxygen as is; stable thus far. Breathing treatments and aspiration precautions. Monitor blood gases for change.keep negative. seizure medications. feeds and monitor residuals; DNR noted DVT prophylaxis; monitor imaging guarded and at risk for decompensation dc planning for now impression, plan, and exam edited and reviewed in detail care discussed with Attila Yuan MD Jun 12, 2020 09:38
--- NOTE | 2020-06-12 11:02 | Surgery Progress Note ---
Surgery Progress Note Subjective Symptoms: tolerating diet, passing flatus, BM Objective Last 24 Hour Vital Signs Date Time Temp Pulse Resp B/P (MAP) Pulse Ox O2 Delivery O2 Flow Rate FiO2 06/12/20 09:10 72 126/70 06/12/20 08:00 98.1 72 24 126/70 (88) 100 06/12/20 07:30 100 Nasal Cannula 3.0 32 06/12/20 04:00 3.0 06/12/20 04:00 98.1 85 21 134/78 (96) 100 06/12/20 03:42 87 06/12/20 00:00 98.2 82 24 124/64 (84) 100 06/11/20 23:25 70 06/11/20 21:00 Nasal Cannula 3.0 Nasal Cannula 3.0 06/11/20 20:23 85 134/77 06/11/20 20:00 98.2 85 20 134/77 (96) 100 06/11/20 20:00 3.0 06/11/20 19:05 87 06/11/20 19:03 100 Nasal Cannula 2.0 28 06/11/20 16:00 98.0 85 22 151/64 (93) 100 06/11/20 16:00 3.0 06/11/20 15:14 69 06/11/20 12:00 3.0 06/11/20 12:00 98.0 85 22 130/87 (101) 100 06/11/20 11:47 71 I&O Intake and Output 06/11/20 06/12/20 19:00 07:00 Intake Total 705 ml 740 ml Output Total 550 ml Balance 705 ml 190 ml Intake Free Water 225 ml 300 ml Tube Feeding 480 ml 440 ml Output Urine Total 550 ml # Voids 2 # Bowel Movements 3 Dressing: saturated Cardiovascular: RSR Respiratory: decreased breath sounds Abdomen: non-tender, present bowel sounds, non-distended Extremities: no edema, no tenderness, no cyanosis Laboratory Tests Test 06/12/20 08:50 Sodium Level 136 MMOL/L (136-145) Potassium Level 5.7 MMOL/L (3.5-5.1) H Chloride Level 101 MMOL/L (98-107) Carbon Dioxide Level 35 MMOL/L (21-32) H Anion Gap 0 mmol/L (5-15) L Blood Urea Nitrogen 21 mg/dL (7-18) H Creatinine 0.4 MG/DL (0.55-1.30) L Estimat Glomerular Filtration Rate > 60 mL/min (>60) Glucose Level 128 MG/DL (74-106) H Calcium Level 8.7 MG/DL (8.5-10.1) Magnesium Level 2.0 MG/DL (1.8-2.4) Pro-B-Type Natriuretic Peptide 713 pg/mL (0-125) H Plan Problems: (1) Deep tissue injury Assessment & Plan: Patient identified to have bilateral heel concerns for potential developing DTI. Soft boggy no fluid collection no acute injury at this time. Patient identified to have sacral erythema and skin changes with concerns for developing deep tissue injury as well. No open areas. No fluid collections no fluctuance no drainage. On the scrotum patient is identified to have edema erythema and some abrasion along with incontinence associated dermatitis in the area. Patient identified to have abrasion to the nasal brim secondary to a facemask placement. Patient is chronically ill elderly and malnourished. Wound evaluated and care plan initiated. Treatment plan Apply skin protectant to the nasal bridge followed by foam dressing prior to facemask placement. Patient currently requires oxygen supplementation and therefore important to ensure receiving such along with protection of underlying epidermis. Apply OPTi foam to heels change every 3 days offload pressure with pillows Apply OPTi foam to sacral area monitor for incontinence change accordingly every 3 days and as needed saturation. Soft towel under scrotum. Continue with respiratory supportive care Turn every 2 hours Offload pressure with pillows Continue tube feeds nutritional optimization we will follow with recommendations thank you for let me participate patient's care (2) Dementia with behavioral problem (3) UTI (urinary tract infection) (4) Elevated troponin I level (5) AMS (altered mental status) (6) Dysphagia Assessment & Plan: DAILY ESTIMATED NEEDS: Needs based on Pulmonary, cardiac, 62kg 25-30 kcals/kg 0060-6158 total kcals 1-1.5 g protein/kg 62-93 g total protein 25-30 mL/kg 4550-8348 total fluid mLs NUTRITION DIAGNOSIS: Swallowing difficulty r/t dysphagia as evidenced by pt is PEG dep, currently on continuous BIPAP. CURRENT TF: Glucerna 1.5 @ 40ml/hr ENTERAL NUTRITION RECOMMENDATIONS: Glucerna 1.5 goal of 45ml/hr x 24 hrs to provide 1080ml, 1620 kcal, 89g pro, 820ml free water * Maintain carb controlled TF of Glucerna 1.5 while CO2 critically elevated * As medically appropriate, increase goal rate to 45ml/hr x 24 hrs to better meet nutritional needs. * HOB over 30 degrees/ water flush per MD ADDITIONAL RECOMMENDATIONS: 1) Monitor BIPAP usage, safety of GT feeds -> continuous BIPAP at this time 2) Lytes daily, replete as needed Current TF Glucerna 1.5 @goal of 40ml/hr provides 2419mg K/day 3) Calibrated bed scale wts (Bed scale shows uptrend: 65kg-> 71kg) 4) Rec HgA1C for eval of BG control 5) F/up w/ WC eval: Continue MVI and Vit C (7) Seizure (8) NSTEMI (non-ST elevated myocardial infarction) (9) Respiratory insufficiency Assessment & Plan: constant required bipap ? trach dnr/dni discussed with pcp and pulm Duplex Doppler interrogation of the veins in both upper extremity is performed from the internal jugular veins to the radial and ulnar veins. No thrombus is identified. Basilic and cephalic veins are also patent bilaterally. There is mild subcutaneous edema of the right upper extremity. IMPRESSION: No evidence of deep venous thrombosis involving the upper extremities. Benitez Mayorga Jun 12, 2020 11:02
[2020-06-12 12:00] VITALS: BP 147/74
[2020-06-12 16:00] VITALS: BP 141/76
--- NOTE | 2020-06-12 16:49 | General Progress Note ---
Subjective Allergies: Coded Allergies: PENICILLINS (Unverified Allergy, Unknown, 08/11/19) Subjective no events. off bipap. on nasal cannula. appears no fever or chills. appears more sob. tolerating feeds.no szs elevated K noted on labs. on daily K replacement Objective Last 24 Hour Vital Signs Date Time Temp Pulse Resp B/P (MAP) Pulse Ox O2 Delivery O2 Flow Rate FiO2 06/12/20 12:00 98.1 72 24 147/74 (98) 98 06/12/20 12:00 76 06/12/20 09:10 72 126/70 06/12/20 08:00 98.1 72 24 126/70 (88) 100 06/12/20 08:00 95 06/12/20 07:30 100 Nasal Cannula 3.0 32 06/12/20 04:00 3.0 06/12/20 04:00 98.1 85 21 134/78 (96) 100 06/12/20 03:42 87 06/12/20 00:00 98.2 82 24 124/64 (84) 100 06/11/20 23:25 70 06/11/20 21:00 Nasal Cannula 3.0 Nasal Cannula 3.0 06/11/20 20:23 85 134/77 06/11/20 20:00 98.2 85 20 134/77 (96) 100 06/11/20 20:00 3.0 06/11/20 19:05 87 06/11/20 19:03 100 Nasal Cannula 2.0 28 Intake and Output0 06/11/20 06/12/20 19:00 07:00 Intake Total 705 ml 740 ml Output Total 550 ml Balance 705 ml 190 ml Intake Free Water 225 ml 300 ml Tube Feeding 480 ml 440 ml Output Urine Total 550 ml # Voids 2 # Bowel Movements 3 Laboratory Tests 06/12/20 08:50: Sodium Level 136, Potassium Level 5.7H, Chloride Level 101, Carbon Dioxide Level 35H, Anion Gap 0L, Blood Urea Nitrogen 21H, Creatinine 0.4L, Estimat Glomerular Filtration Rate > 60, Glucose Level 128H, Calcium Level 8.7, Magnesium Level 2.0, Pro-B-Type Natriuretic Peptide 713H Height (Feet): 5 Height (Inches): 6.00 Weight (Pounds): 137 Objective General Appearance: WD/WN, alert, confused. on bipap EENT: normal ENT inspection Neck: normal alignment Cardiovascular: normal rate Respiratory/Chest: chest wall non-tender, lungs clear, normal breath sounds Abdomen: normal bowel sounds, non tender, soft, no organomegaly Edema: no edema noted Arm (L), no edema noted Arm (R) Neurologic: alert, disoriented Assessment/Plan Problem List: (1) Seizure ICD Codes: R56.9 - Unspecified convulsions SNOMED: 50983321 (2) Dysphagia ICD Codes: R13.10 - Dysphagia, unspecified SNOMED: 93917691, 600937495 (3) UTI (urinary tract infection) ICD Codes: N39.0 - Urinary tract infection, site not specified SNOMED: 56460668 (4) Elevated troponin I level ICD Codes: R77.8 - Other specified abnormalities of plasma proteins SNOMED: 390547321 (5) AMS (altered mental status) ICD Codes: R41.82 - Altered mental status, unspecified SNOMED: 751112431 (6) NSTEMI (non-ST elevated myocardial infarction) ICD Codes: I21.4 - Non-ST elevation (NSTEMI) myocardial infarction SNOMED: 93626066 Status: stable Assessment/Plan: nasal cannula during the day bipap at night manager abg tube feeds monitor residuals sz rx dc K kayexlate x 1 repeat labs in am anxiolytics as needed o2 resp rx dvt/stress ulcer prophylaxis. dc planning to snf when bed available Jorge Kee MD Jun 12, 2020 16:49
[2020-06-12] MEDS ORDERED: Sodium Polystyrene Sulfonate 15gm Powder ORAL SCH (17:00)
[2020-06-12 20:00] VITALS: BP 138/90
--- NOTE | 2020-06-12 21:33 | Cardiology Progress Note ---
Subjective DATE OF SERVICE: Jun 12, 2020 Remains on bipap at times. Comfortable on O2 by n/c during day. BP remains well controlled. BNP increased to 2500 range, and patient was diuresed further with BNP decreas ing now to 700 range. Monitor: sinus with rare run of VTach. ABG (06/10) 7.42/58/83 Elevated K+ noted with repl rx Objective Last 24 Hour Vital Signs Date Time Temp Pulse Resp B/P (MAP) Pulse Ox O2 Delivery O2 Flow Rate FiO2 06/12/20 20:00 98.2 24 138/90 (106) 95 06/12/20 19:35 100 Nasal Cannula 3.0 32 06/12/20 16:00 Nasal Cannula 3.0 Nasal Cannula 3.0 06/12/20 16:00 73 06/12/20 16:00 98.2 66 24 141/76 (97) 94 06/12/20 12:00 98.1 72 24 147/74 (98) 98 06/12/20 12:00 Nasal Cannula 3.0 Nasal Cannula 3.0 06/12/20 12:00 76 06/12/20 09:10 72 126/70 06/12/20 09:00 Nasal Cannula 3.0 Nasal Cannula 3.0 06/12/20 08:00 98.1 72 24 126/70 (88) 100 06/12/20 08:00 95 06/12/20 07:30 100 Nasal Cannula 3.0 32 06/12/20 04:00 3.0 06/12/20 04:00 98.1 85 21 134/78 (96) 100 06/12/20 03:42 87 06/12/20 00:00 98.2 82 24 124/64 (84) 100 06/11/20 23:25 70 ROS: unchanged from my evaluation of 05/06/20 HEENT: normal ENT inspection, other - bipap mask RHYTHM: NSR, VT LUNGS: diminished breath sounds, left-sided rhonchi CARDIAC: normal rate, regular rhythm, normal S1 and S2 ABDOMEN: non tender, soft, G-Tube intact EXTREMITIES: non-pitting, No edema Laboratory Tests Test 06/12/20 08:50 Sodium Level 136 MMOL/L (136-145) Potassium Level 5.7 MMOL/L (3.5-5.1) H Chloride Level 101 MMOL/L (98-107) Carbon Dioxide Level 35 MMOL/L (21-32) H Anion Gap 0 mmol/L (5-15) L Blood Urea Nitrogen 21 mg/dL (7-18) H Creatinine 0.4 MG/DL (0.55-1.30) L Estimat Glomerular Filtration Rate > 60 mL/min (>60) Glucose Level 128 MG/DL (74-106) H Calcium Level 8.7 MG/DL (8.5-10.1) Magnesium Level 2.0 MG/DL (1.8-2.4) Pro-B-Type Natriuretic Peptide 713 pg/mL (0-125) H Assessment/Plan Assessment/Plan E.coli UTI Sepsis Metabolic and toxic encephalopathies Cerebrovascular disease with dementia Acute myocardial ischemia and possible NSTEMI Dehydration/hypernatremia Hypertension/HHD Ac/chronic respiratory acidosis now compensated Respiratory failure improving, but still requiring bipap support Ac diastolic CHF; BNP relatively unchanged. Metabolic acidosis resolved Pleural effusions Ac/chr renal failure with azotemia Paroxysmal ventricular tachycardia Hyperkalemia from exogenous repl rx Continue anti-anginal regimen including nitrates. Maintain current antiHTN regimen. Antimicrobial therapy per ID. Maintain adequate free water per Gtube. Coontinue periodic diuretics rx; trend BNP. Patient may need low maintenance dose of oral furosemide. Bipap support-taper to nighttime only. DC potassium suppl Real Magana MD Jun 12, 2020 21:33
[2020-06-13] VITALS: BP 140/64
[2020-06-13 04:00] VITALS: BP 157/77
[2020-06-13 05:49] LABS: ALANINE AMINOTRANSFERASE 26 U/L (12-78); ALBUMIN 2.7 G/DL (3.4-5.0); ALBUMIN/GLOBULIN RATIO 0.6 (1.0-2.7); ALKALINE PHOSPHATASE 92 U/L (46-116); ASPARTATE AMINO TRANSFERASE 20 U/L (15-37); BILIRUBIN,TOTAL 0.3 MG/DL (0.2-1.0); BLOOD UREA NITROGEN 20 mg/dL (7-18); CALCIUM 8.8 MG/DL (8.5-10.1); CHLORIDE 99 MMOL/L (98-107); CREATININE 0.4 MG/DL (0.55-1.30); POTASSIUM 3.9 MMOL/L (3.5-5.1); SODIUM 144 MMOL/L (136-145)
[2020-06-13 06:01] LABS: CARBON DIOXIDE > 45 MMOL/L (21-32)
[2020-06-13 08:00] VITALS: BP 153/77
[2020-06-13] MEDS: levETIRAcetam 500mg/5ml Liquid GT SCH (09:39)
[2020-06-13] MEDS: Ascorbic Acid 500mg tab GT SCH (09:39)
[2020-06-13] MEDS: Carvedilol 6.25mg Tab ORAL SCH ×2 (09:40→20:06)
--- NOTE | 2020-06-13 11:19 | Infectious Diseases Prog Note ---
Assessment/Plan Assessment/Plan antibiotics : none A 1. Urinary tract infection with E. coli s/p rx 2. MRSA nasal colonization. 3. CHF. 4. COPD. 5. Seizures. 6. Dementia. 7. He is negative for COVID-19. 8. pneumonia s/p rx 9. respiratory failure P 1. observe off antibiotics 2. will follow up cultures Subjective ROS Limited/Unobtainable: Yes Allergies: Coded Allergies: PENICILLINS (Unverified Allergy, Unknown, 08/11/19) Objective Last 24 Hour Vital Signs Date Time Temp Pulse Resp B/P (MAP) Pulse Ox O2 Delivery O2 Flow Rate FiO2 06/13/20 09:40 96 153/77 06/13/20 08:00 97.3 96 22 153/77 (102) 100 06/13/20 04:00 98 06/13/20 04:00 98.1 76 19 157/77 (103) 93 06/13/20 00:00 98.1 90 20 140/64 (89) 100 06/13/20 00:00 101 06/12/20 21:00 Nasal Cannula 3.0 Nasal Cannula 3.0 06/12/20 20:00 98.2 70 24 138/90 (106) 95 06/12/20 19:35 100 Nasal Cannula 3.0 32 06/12/20 19:25 88 06/12/20 16:00 Nasal Cannula 3.0 Nasal Cannula 3.0 06/12/20 16:00 73 06/12/20 16:00 98.2 66 24 141/76 (97) 94 06/12/20 12:00 98.1 72 24 147/74 (98) 98 06/12/20 12:00 Nasal Cannula 3.0 Nasal Cannula 3.0 06/12/20 12:00 76 Height (Feet): 5 Height (Inches): 6.00 Weight (Pounds): 137 Respiratory/Chest: lungs clear Cardiovascular: normal rate, regular rhythm, no gallop/murmur Abdomen: soft, non tender, other - GT Extremities: no edema Laboratory Tests Test 06/13/20 02:50 Sodium Level 144 MMOL/L (136-145) Potassium Level 3.9 MMOL/L (3.5-5.1) Chloride Level 99 MMOL/L (98-107) Carbon Dioxide Level > 45 MMOL/L (21-32) *H Blood Urea Nitrogen 20 mg/dL (7-18) H Creatinine 0.4 MG/DL (0.55-1.30) L Estimat Glomerular Filtration Rate > 60 mL/min (>60) Glucose Level 116 MG/DL (74-106) H Calcium Level 8.8 MG/DL (8.5-10.1) Total Bilirubin 0.3 MG/DL (0.2-1.0) Aspartate Amino Transf (AST/SGOT) 20 U/L (15-37) Alanine Aminotransferase (ALT/SGPT) 26 U/L (12-78) Alkaline Phosphatase 92 U/L (46-116) Total Protein 6.9 G/DL (6.4-8.2) Albumin 2.7 G/DL (3.4-5.0) L Globulin 4.2 g/dL Albumin/Globulin Ratio 0.6 (1.0-2.7) L Current Medications Medications (Trade) Dose Ordered Sig/Mayela Route PRN Reason Start Time Stop Time Status Last Admin Dose Admin Ascorbic Acid (Vitamin C) 500 mg DAILY GT 06/10/20 13:00 07/10/20 12:59 06/13/20 09:39 Carvedilol (Coreg) 6.25 mg EVERY 12 HOURS ORAL 06/13/20 09:00 07/13/20 08:59 06/13/20 09:40 Clonidine HCl (Catapres Tab) 0.1 mg Q4H PRN ORAL SBP >160 05/08/20 22:15 08/06/20 22:14 Levetiracetam (Keppra) 250 mg DAILY GT 05/19/20 15:11 06/18/20 15:10 06/13/20 09:39 Nitroglycerin (Nitro-Bid) 1 inch BEDTIME TOPIC 06/13/20 21:00 07/13/20 20:59 Tamsulosin HCl (Flomax) 0.4 mg BEDTIME ORAL 06/13/20 21:00 07/13/20 20:59 Josué Light MD Jun 13, 2020 11:19
[2020-06-13 12:00] VITALS: BP 142/63
--- NOTE | 2020-06-13 12:09 | Pulmonology Progress Note ---
Subjective ROS Limited/Unobtainable: Yes Constitutional: Reports: other - looks better Allergies: Coded Allergies: PENICILLINS (Unverified Allergy, Unknown, 08/11/19) All Systems: reviewed and negative except above Subjective care noted off BIPAP comfortable on NC Objective Last 24 Hour Vital Signs Date Time Temp Pulse Resp B/P (MAP) Pulse Ox O2 Delivery O2 Flow Rate FiO2 06/13/20 12:00 97.0 81 22 142/63 (89) 100 06/13/20 09:40 96 153/77 06/13/20 09:00 Nasal Cannula 3.0 Nasal Cannula 3.0 06/13/20 08:00 97.3 96 22 153/77 (102) 100 06/13/20 07:43 102 06/13/20 04:00 98 06/13/20 04:00 98.1 76 19 157/77 (103) 93 06/13/20 00:00 98.1 90 20 140/64 (89) 100 06/13/20 00:00 101 06/12/20 21:00 Nasal Cannula 3.0 Nasal Cannula 3.0 06/12/20 20:00 98.2 70 24 138/90 (106) 95 06/12/20 19:35 100 Nasal Cannula 3.0 32 06/12/20 19:25 88 06/12/20 16:00 Nasal Cannula 3.0 Nasal Cannula 3.0 06/12/20 16:00 73 06/12/20 16:00 98.2 66 24 141/76 (97) 94 Intake and Output 06/12/20 06/13/20 19:00 07:00 Intake Total 115 ml 590 ml Output Total 650 ml 750 ml Balance -535 ml -160 ml Intake Free Water 75 ml 150 ml Tube Feeding 40 ml 440 ml Output Urine Total 650 ml 750 ml Objective WDWN NAD reduced breath sounds bilaterally without rhonchi or wheeze [id number] without MRG NABS nontender no CC mild edema as is nonfocal off BIPAP reduced LOC Laboratory Tests 06/13/20 02:50: Sodium Level 144, Potassium Level 3.9, Chloride Level 99, Carbon Dioxide Level > 45*H, Blood Urea Nitrogen 20H, Creatinine 0.4L, Estimat Glomerular Filtration Rate > 60, Glucose Level 116H, Calcium Level 8.8, Total Bilirubin 0.3, Aspartate Amino Transf (AST/SGOT) 20, Alanine Aminotransferase (ALT/SGPT) 26, Alkaline Phosphatase 92, Total Protein 6.9, Albumin 2.7L, Globulin 4.2, Albumin/Globulin Ratio 0.6L Current Medications Medications (Trade) Dose Ordered Sig/Mayela Route PRN Reason Start Time Stop Time Status Last Admin Dose Admin Ascorbic Acid (Vitamin C) 500 mg DAILY GT 06/10/20 13:00 07/10/20 12:59 06/13/20 09:39 Carvedilol (Coreg) 6.25 mg EVERY 12 HOURS ORAL 06/13/20 09:00 07/13/20 08:59 06/13/20 09:40 Clonidine HCl (Catapres Tab) 0.1 mg Q4H PRN ORAL SBP >160 05/08/20 22:15 08/06/20 22:14 Levetiracetam (Keppra) 250 mg DAILY GT 05/19/20 15:11 06/18/20 15:10 06/13/20 09:39 Nitroglycerin (Nitro-Bid) 1 inch BEDTIME TOPIC 06/13/20 21:00 07/13/20 20:59 Tamsulosin HCl (Flomax) 0.4 mg BEDTIME ORAL 06/13/20 21:00 07/13/20 20:59 Assessment/Plan Assessment/Plan ASSESSMENT: Pulmonary congestion, respiratory failure, hypoxemia dementia, G-tube, seizure disorder, congestive heart failure, COPD sepsis, and acute OH. acute on chronic CO2 retention PLAN: oxygen as is; stable thus far. Breathing treatments and aspiration precautions. Monitor blood gases for change.keep negative. seizure medications. feeds and monitor residuals; DNR noted DVT prophylaxis; monitor imaging guarded and at risk for decompensation dc planning for now impression, plan, and exam edited and reviewed in detail care discussed with Attila Yuan MD Jun 13, 2020 12:09
--- NOTE | 2020-06-13 13:08 | Cardiology Progress Note ---
Subjective DATE OF SERVICE: Jun 13, 2020 Remains on bipap at times during nite. Comfortable on O2 by n/c during day. BP remains well controlled. BNP increased to 2500 range, and patient was diuresed further with BNP decreasing now to 700 range, most recently. Monitor: sinus with rare non-sustained ectopy. ABG (06/10) 7.42/58/83 Objective Last 24 Hour Vital Signs Date Time Temp Pulse Resp B/P (MAP) Pulse Ox O2 Delivery O2 Flow Rate FiO2 06/13/20 12:00 97.0 81 22 142/63 (89) 100 06/13/20 11:43 80 06/13/20 09:40 96 153/77 06/13/20 09:00 Nasal Cannula 3.0 Nasal Cannula 3.0 06/13/20 08:00 97.3 96 22 153/77 (102) 100 06/13/20 07:43 102 06/13/20 04:00 98 06/13/20 04:00 98.1 76 19 157/77 (103) 93 06/13/20 00:00 98.1 90 20 140/64 (89) 100 06/13/20 00:00 101 06/12/20 21:00 Nasal Cannula 3.0 Nasal Cannula 3.0 06/12/20 20:00 98.2 70 24 138/90 (106) 95 06/12/20 19:35 100 Nasal Cannula 3.0 32 06/12/20 19:25 88 06/12/20 16:00 Nasal Cannula 3.0 Nasal Cannula 3.0 06/12/20 16:00 73 06/12/20 16:00 98.2 66 24 141/76 (97) 94 ROS: unchanged from my evaluation of 05/06/20 HEENT: normal ENT inspection, other - bipap mask RHYTHM: NSR, VT LUNGS: diminished breath sounds, left-sided rhonchi CARDIAC: normal rate, regular rhythm, normal S1 and S2 ABDOMEN: non tender, soft, G-Tube intact EXTREMITIES: non-pitting, No edema Laboratory Tests Test 06/13/20 02:50 Sodium Level 144 MMOL/L (136-145) Potassium Level 3.9 MMOL/L (3.5-5.1) Chloride Level 99 MMOL/L (98-107) Carbon Dioxide Level > 45 MMOL/L (21-32) *H Blood Urea Nitrogen 20 mg/dL (7-18) H Creatinine 0.4 MG/DL (0.55-1.30) L Estimat Glomerular Filtration Rate > 60 mL/min (>60) Glucose Level 116 MG/DL (74-106) H Calcium Level 8.8 MG/DL (8.5-10.1) Total Bilirubin 0.3 MG/DL (0.2-1.0) Aspartate Amino Transf (AST/SGOT) 20 U/L (15-37) Alanine Aminotransferase (ALT/SGPT) 26 U/L (12-78) Alkaline Phosphatase 92 U/L (46-116) Total Protein 6.9 G/DL (6.4-8.2) Albumin 2.7 G/DL (3.4-5.0) L Globulin 4.2 g/dL Albumin/Globulin Ratio 0.6 (1.0-2.7) L Assessment/Plan Assessment/Plan E.coli UTI Sepsis Metabolic and toxic encephalopathies Cerebrovascular disease with dementia Acute myocardial ischemia and possible NSTEMI Dehydration/hypernatremia Hypertension/HHD Ac/chronic respiratory acidosis now compensated Respiratory failure improving, but still requiring bipap support Ac diastolic CHF; BNP relatively unchanged. Metabolic acidosis resolved Pleural effusions Ac/chr renal failure with azotemia Paroxysmal ventricular tachycardia Hyperkalemia from exogenous repl rx - resolved Continue anti-anginal regimen including nitrates. Maintain current antiHTN regimen. Antimicrobial therapy per ID. Maintain adequate free water per Gtube. No current need to diurese further; monitor volume status and trend BNP. Bipap support-taper to nighttime only Real Loaiza MD Jun 13, 2020 13:08
--- NOTE | 2020-06-13 14:29 | General Progress Note ---
Subjective ROS Limited/Unobtainable: No Constitutional: Reports: malaise, weakness HEENT: Reports: no symptoms Cardiovascular: Reports: no symptoms Respiratory: Reports: cough, shortness of breath Gastrointestinal/Abdominal: Reports: difficulty swallowing Genitourinary: Reports: no symptoms Neurologic/Psychiatric: Reports: pre-existing deficit, seizure Endocrine: Reports: no symptoms Hematologic/Lymphatic: Reports: no symptoms Allergies: Coded Allergies: PENICILLINS (Unverified Allergy, Unknown, 08/11/19) All Systems: reviewed and negative except above Subjective no events. off bipap. on nasal cannula. appears comfortable. less sob compared to yesterday. no fever or chills. tolerating tube feeds. no reports of szs Objective Last 24 Hour Vital Signs Date Time Temp Pulse Resp B/P (MAP) Pulse Ox O2 Delivery O2 Flow Rate FiO2 06/13/20 12:00 97.0 81 22 142/63 (89) 100 06/13/20 11:43 80 06/13/20 09:40 96 153/77 06/13/20 09:00 Nasal Cannula 3.0 Nasal Cannula 3.0 06/13/20 08:00 97.3 96 22 153/77 (102) 100 06/13/20 07:43 102 06/13/20 04:00 98 06/13/20 04:00 98.1 76 19 157/77 (103) 93 06/13/20 00:00 98.1 90 20 140/64 (89) 100 06/13/20 00:00 101 06/12/20 21:00 Nasal Cannula 3.0 Nasal Cannula 3.0 06/12/20 20:00 98.2 70 24 138/90 (106) 95 06/12/20 19:35 100 Nasal Cannula 3.0 32 06/12/20 19:25 88 06/12/20 16:00 Nasal Cannula 3.0 Nasal Cannula 3.0 06/12/20 16:00 73 06/12/20 16:00 98.2 66 24 141/76 (97) 94 Intake and Output 06/12/20 06/13/20 19:00 07:00 Intake Total 115 ml 590 ml Output Total 650 ml 750 ml Balance -535 ml -160 ml Intake Free Water 75 ml 150 ml Tube Feeding 40 ml 440 ml Output Urine Total 650 ml 750 ml Laboratory Tests 12/4/20 02:50: Sodium Level 144, Potassium Level 3.9, Chloride Level 99, Carbon Dioxide Level > 45*H, Blood Urea Nitrogen 20H, Creatinine 0.4L, Estimat Glomerular Filtration Rate > 60, Glucose Level 116H, Calcium Level 8.8, Total Bilirubin 0.3, Aspartate Amino Transf (AST/SGOT) 20, Alanine Aminotransferase (ALT/SGPT) 26, Alkaline P hosphatase 92, Total Protein 6.9, Albumin 2.7L, Globulin 4.2, Albumin/Globulin Ratio 0.6L Height (Feet): 5 Height (Inches): 6.00 Weight (Pounds): 137 Objective General Appearance: WD/WN, alert, confused. on bipap EENT: normal ENT inspection Neck: normal alignment Cardiovascular: normal rate Respiratory/Chest: chest wall non-tender, lungs clear, normal breath sounds Abdomen: normal bowel sounds, non tender, soft, no organomegaly Edema: no edema noted Arm (L), no edema noted Arm (R) Neurologic: alert, disoriented Assessment/Plan Problem List: (1) Seizure ICD Codes: R56.9 - Unspecified convulsions SNOMED: 39428006 (2) Dysphagia ICD Codes: R13.10 - Dysphagia, unspecified SNOMED: 60316344, 040520069 (3) UTI (urinary tract infection) ICD Codes: N39.0 - Urinary tract infection, site not specified SNOMED: 42035854 (4) Elevated troponin I level ICD Codes: R77.8 - Other specified abnormalities of plasma proteins SNOMED: 515612342 (5) AMS (altered mental status) ICD Codes: R41.82 - Altered mental status, unspecified SNOMED: 690306535 (6) NSTEMI (non-ST elevated myocardial infarction) ICD Codes: I21.4 - Non-ST elevation (NSTEMI) myocardial infarction SNOMED: 28197979 Status: stable Assessment/Plan: nasal 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 dc planning to snf when bed available Jorge Kee MD Jun 13, 2020 14:29
[2020-06-13 16:00] VITALS: BP 139/92
--- NOTE | 2020-06-13 16:07 | Surgery Progress Note ---
Surgery Progress Note Subjective Symptoms: tolerating diet, passing flatus Objective Last 24 Hour Vital Signs Date Time Temp Pulse Resp B/P (MAP) Pulse Ox O2 Delivery O2 Flow Rate FiO2 06/13/20 12:00 97.0 81 22 142/63 (89) 100 06/13/20 11:43 80 06/13/20 09:40 96 153/77 06/13/20 09:00 Nasal Cannula 3.0 Nasal Cannula 3.0 06/13/20 08:00 97.3 96 22 153/77 (102) 100 06/13/20 07:43 102 06/13/20 04:00 98 06/13/20 04:00 98.1 76 19 157/77 (103) 93 06/13/20 00:00 98.1 90 20 140/64 (89) 100 06/13/20 00:00 101 06/12/20 21:00 Nasal Cannula 3.0 Nasal Cannula 3.0 06/12/20 20:00 98.2 70 24 138/90 (106) 95 06/12/20 19:35 100 Nasal Cannula 3.0 32 06/12/20 19:25 88 I&O Intake and Output 06/12/20 06/13/20 19:00 07:00 Intake Total 115 ml 705 ml Output Total 650 ml 750 ml Balance -535 ml -45 ml Intake Free Water 75 ml 225 ml Tube Feeding 40 ml 480 ml Output Urine Total 650 ml 750 ml Dressing: saturated Respiratory: decreased breath sounds Abdomen: non-tender, present bowel sounds Extremities: no edema, no tenderness, no cyanosis Laboratory Tests Test 06/13/20 02:50 06/13/20 11:26 Sodium Level 144 MMOL/L (136-145) Potassium Level 3.9 MMOL/L (3.5-5.1) Chloride Level 99 MMOL/L (98-107) Carbon Dioxide Level > 45 MMOL/L (21-32) *H Blood Urea Nitrogen 20 mg/dL (7-18) H Creatinine 0.4 MG/DL (0.55-1.30) L Estimat Glomerular Filtration Rate > 60 mL/min (>60) Glucose Level 116 MG/DL (74-106) H Calcium Level 8.8 MG/DL (8.5-10.1) Total Bilirubin 0.3 MG/DL (0.2-1.0) Aspartate Amino Transf (AST/SGOT) 20 U/L (15-37) Alanine Aminotransferase (ALT/SGPT) 26 U/L (12-78) Alkaline Phosphatase 92 U/L (46-116) Total Protein 6.9 G/DL (6.4-8.2) Albumin 2.7 G/DL (3.4-5.0) L Globulin 4.2 g/dL Albumin/Globulin Ratio 0.6 (1.0-2.7) L Arterial Blood pH 7.322 (7.350-7.450) Arterial Blood Partial Pressure CO2 93.7 mmHg (35.0-45.0) *H Arterial Blood Partial Pressure O2 118.5 mmHg (75.0-100.0) H Arterial Blood HCO3 47.4 mmol/L (22.0-26.0) *H Arterial Blood Oxygen Saturation 98.0 % (95-100) Arterial Blood Base Excess 17.2 (-2-2) *H Apollo Test Positive Plan Problems: (1) Deep tissue injury Assessment & Plan: Patient identified to have bilateral heel concerns for potential developing DTI. Soft boggy no fluid collection no acute injury at this time. Patient identified to have sacral erythema and skin changes with concerns for developing deep tissue injury as well. No open areas. No fluid collections no fluctuance no drainage. On the scrotum patient is identified to have edema erythema and some abrasion along with incontinence associated dermatitis in the area. Patient identified to have abrasion to the nasal brim secondary to a facemask placement. Patient is chronically ill elderly and malnourished. Wound evaluated and care plan initiated. Treatment plan Apply skin protectant to the nasal bridge followed by foam dressing prior to facemask placement. Patient currently requires oxygen supplementation and therefore important to ensure receiving such along with protection of underlying epidermis. Apply OPTi foam to heels change every 3 days offload pressure with pillows Apply OPTi foam to sacral area monitor for incontinence change accordingly every 3 days and as needed saturation. Soft towel under scrotum. Continue with respiratory supportive care Turn every 2 hours Offload pressure with pillows Continue tube feeds nutritional optimization we will follow with recommendations thank you for let me participate patient's care (2) Dementia with behavioral problem (3) UTI (urinary tract infection) (4) Elevated troponin I level (5) AMS (altered mental status) (6) Dysphagia Assessment & Plan: DAILY ESTIMATED NEEDS: Needs based on Pulmonary, cardiac, 62kg 25-30 kcals/kg 7899-2702 total kcals 1-1.5 g protein/kg 62-93 g total protein 25-30 mL/kg 4152-9548 total fluid mLs NUTRITION DIAGNOSIS: Swallowing difficulty r/t dysphagia as evidenced by pt is PEG dep, currently on continuous BIPAP. CURRENT TF: Glucerna 1.5 @ 40ml/hr ENTERAL NUTRITION RECOMMENDATIONS: Glucerna 1.5 goal of 45ml/hr x 24 hrs to provide 1080ml, 1620 kcal, 89g pro, 820ml free water * Maintain carb controlled TF of Glucerna 1.5 while CO2 critically elevated * As medically appropriate, increase goal rate to 45ml/hr x 24 hrs to better meet nutritional needs. * HOB over 30 degrees/ water flush per MD ADDITIONAL RECOMMENDATIONS: 1) Monitor BIPAP usage, safety of GT feeds -> continuous BIPAP at this time 2) Lytes daily, replete as needed Current TF Glucerna 1.5 @goal of 40ml/hr provides 2419mg K/day 3) Calibrated bed scale wts (Bed scale shows uptrend: 65kg-> 71kg) 4) Rec HgA1C for eval of BG control 5) F/up w/ WC eval: Continue MVI and Vit C (7) Seizure (8) NSTEMI (non-ST elevated myocardial infarction) (9) Respiratory insufficiency Assessment & Plan: constant required bipap ? trach dnr/dni discussed with pcp and pulm Duplex Doppler interrogation of the veins in both upper extremity is performed from the internal jugular veins to the radial and ulnar veins. No thrombus is identified. Basilic and cephalic veins are also patent bilaterally. There is mild subcutaneous edema of the right upper extremity. IMPRESSION: No evidence of deep venous thrombosis involving the upper extremities. Benitez Mayorga Jun 13, 2020 16:07
--- NOTE | 2020-06-13 16:25 | Diagnostic Imaging Report ---
Indication: Abnormal chest sounds Technique: One view of the chest Comparison: 06/06/2020 Findings: The heart is enlarged. The aorta is tortuous and calcified. There is some blunting of left costophrenic sulcus again demonstrated. There is central bronchial wall thickening. No definite infiltrates. Previously demonstrated left perihilar opacity is no longer evident. Impression: Left pleural effusion Resolved left perihilar infiltrate
[2020-06-13 20:00] VITALS: BP 134/72
[2020-06-13] MEDS: Nitroglycerin 2% oint pkt TOPIC SCH (20:06)
[2020-06-13] MEDS: Tamsulosin 0.4mg cap ORAL SCH (20:06)
[2020-06-14] VITALS: BP 110/62
[2020-06-14 04:00] VITALS: BP 135/75
[2020-06-14 08:00] VITALS: BP 130/62
[2020-06-14] MEDS: Carvedilol 6.25mg Tab ORAL SCH ×2 (09:20→21:08)
[2020-06-14] MEDS: Ascorbic Acid 500mg tab GT SCH (09:20)
[2020-06-14] MEDS: levETIRAcetam 500mg/5ml Liquid GT SCH (09:20)
--- NOTE | 2020-06-14 09:22 | Pulmonology Progress Note ---
Subjective ROS Limited/Unobtainable: Yes Constitutional: Reports: other - looks better Allergies: Coded Allergies: PENICILLINS (Unverified Allergy, Unknown, 08/11/19) All Systems: reviewed and negative except above Subjective care noted requiring BIPAP again with increasing CO2 retention Objective Last 24 Hour Vital Signs Date Time Temp Pulse Resp B/P (MAP) Pulse Ox O2 Delivery O2 Flow Rate FiO2 06/14/20 05:10 100 32 06/14/20 04:00 96.6 87 21 135/75 (95) 100 06/14/20 04:00 89 06/14/20 02:47 84 13 100 35 06/14/20 00:55 50 06/14/20 00:00 96.8 68 20 110/62 (78) 100 06/14/20 00:00 70 06/13/20 22:36 73 17 99 35 06/13/20 21:00 Nasal Cannula 3.0 Nasal Cannula 3.0 06/13/20 20:06 134/72 06/13/20 20:06 90 134/72 06/13/20 20:00 98.2 89 21 134/72 (92) 100 06/13/20 20:00 79 06/13/20 18:50 98 Bi-Pap 35 06/13/20 18:49 92 24 98 35 06/13/20 16:40 92 23 100 40 06/13/20 16:00 98.8 79 22 139/92 (108) 100 06/13/20 15:40 86 06/13/20 12:00 97.0 81 22 142/63 (89) 100 06/13/20 11:43 80 06/13/20 09:40 96 153/77 Intake and Output 06/13/20 06/14/20 19:00 07:00 Intake Total 630 ml 705 ml Output Total 1100 ml 1300 ml Balance -470 ml -595 ml Intake Free Water 150 ml 225 ml Tube Feeding 480 ml 480 ml Output Urine Total 1100 ml 1300 ml # Bowel Movements 2 Objective WDWN NAD reduced breath sounds bilaterally with some rhonchi [id number] without MRG NABS nontender no CC mild edema as is nonfocal on BIPAP reduced LOC Laboratory Tests 06/13/20 11:26: Arterial Blood pH 7.322L, Arterial Blood Partial Pressure CO2 93.7*H, Arterial Blood Partial Pressure O2 118.5H, Arterial Blood HCO3 47.4*H, Arterial Blood Oxygen Saturation 98.0, Arterial Blood Base Excess 17.2*H, Apollo Test Positive 06/13/20 17:41: Arterial Blood pH 7.395, Arterial Blood Partial Pressure CO2 74.3*H, Arterial Blood Partial Pressure O2 86.5, Arterial Blood HCO3 44.5*H, Arterial Blood Oxyg en Saturation 96.3, Arterial Blood Base Excess 16.2*H, Apollo Test Positive 06/14/20 07:49: Arterial Blood pH 7.399, Arterial Blood Partial Pressure CO2 74.5*H, Arterial Blood Partial Pressure O2 105.1H, Arterial Blood HCO3 45.0*H, Arterial Blood Oxygen Saturation 97.3, Arterial Blood Base Excess 16.8*H, Apollo Test Positive Current Medications Medications (Trade) Dose Ordered Sig/Mayela Route PRN Reason Start Time Stop Time Status Last Admin Dose Admin Ascorbic Acid (Vitamin C) 500 mg DAILY GT 06/10/20 13:00 07/10/20 12:59 06/13/20 09:39 Carvedilol (Coreg) 6.25 mg EVERY 12 HOURS ORAL 06/13/20 09:00 07/13/20 08:59 06/13/20 20:06 Clonidine HCl (Catapres Tab) 0.1 mg Q4H PRN ORAL SBP >160 05/08/20 22:15 08/06/20 22:14 Levetiracetam (Keppra) 250 mg DAILY GT 05/19/20 15:11 06/18/20 15:10 06/13/20 09:39 Nitroglycerin (Nitro-Bid) 1 inch BEDTIME TOPIC 06/13/20 21:00 07/13/20 20:59 06/13/20 20:06 Tamsulosin HCl (Flomax) 0.4 mg BEDTIME ORAL 06/13/20 21:00 07/13/20 20:59 06/13/20 20:06 Assessment/Plan Assessment/Plan ASSESSMENT: Pulmonary congestion, respiratory failure, hypoxemia dementia, G-tube, seizure disorder, congestive heart failure, COPD sepsis, and acute OH. acute on chronic CO2 retention PLAN: oxygen as is; stable thus far. Breathing treatments and aspiration precautions. Monitor blood gases for change- now improved.keep negative. seizure medications. feeds and monitor residuals; DNR noted DVT prophylaxis; monitor imaging BIPAP as needed; repeat CXR guarded and at risk for decompensation dc planning on hold impression, plan, and exam edited and reviewed in detail care discussed with Attila Yuan MD Jun 14, 2020 09:22
--- NOTE | 2020-06-14 11:15 | Infectious Diseases Prog Note ---
Assessment/Plan Assessment/Plan antibiotics : none A 1. Urinary tract infection with E. coli s/p rx 2. MRSA nasal colonization. 3. CHF. 4. COPD. 5. Seizures. 6. Dementia. 7. He is negative for COVID-19. 8. pneumonia s/p rx 9. respiratory failure P 1. observe off antibiotics 2. will follow up clinically Subjective ROS Limited/Unobtainable: Yes Allergies: Coded Allergies: PENICILLINS (Unverified Allergy, Unknown, 08/11/19) Objective Last 24 Hour Vital Signs Date Time Temp Pulse Resp B/P (MAP) Pulse Ox O2 Delivery O2 Flow Rate FiO2 06/14/20 09:20 87 130/62 06/14/20 09:00 Nasal Cannula 3.0 Nasal Cannula 3.0 06/14/20 08:00 50 06/14/20 08:00 95 06/14/20 08:00 97.7 87 20 130/62 (84) 100 06/14/20 05:10 100 32 06/14/20 04:00 96.6 87 21 135/75 (95) 100 06/14/20 04:00 89 06/14/20 02:47 84 13 100 35 06/14/20 00:55 50 06/14/20 00:00 96.8 68 20 110/62 (78) 100 06/14/20 00:00 70 06/13/20 22:36 73 17 99 35 06/13/20 21:00 Nasal Cannula 3.0 Nasal Cannula 3.0 06/13/20 20:06 134/72 06/13/20 20:06 90 134/72 06/13/20 20:00 98.2 89 21 134/72 (92) 100 06/13/20 20:00 79 06/13/20 18:50 98 Bi-Pap 35 06/13/20 18:49 92 24 98 35 06/13/20 16:40 92 23 100 40 06/13/20 16:00 98.8 79 22 139/92 (108) 100 06/13/20 15:40 86 06/13/20 12:00 97.0 81 22 142/63 (89) 100 06/13/20 11:43 80 Height (Feet): 5 Height (Inches): 6.00 Weight (Pounds): 137 Respiratory/Chest: lungs clear Cardiovascular: normal rate, regular rhythm, no gallop/murmur Abdomen: soft, non tender, other - GT Extremities: no edema Laboratory Tests Test 06/13/20 11:26 06/13/20 17:41 06/14/20 07:49 Arterial Blood pH 7.322 (7.350-7.450) 7.395 (7.350-7.450) 7.399 (7.350-7.450) Arterial Blood Partial Pressure CO2 93.7 mmHg (35.0-45.0) *H 74.3 mmHg (35.0-45.0) *H 74.5 mmHg (35.0-45.0) *H Arterial Blood Partial Pressure O2 118.5 mmHg (75.0-100.0) H 86.5 mmHg (75.0-100.0) 105.1 mmHg (75.0-100.0) H Arterial Blood HCO3 47.4 mmol/L (22.0-26.0) *H 44.5 mmol/L (22.0-26.0) *H 45.0 mmol/L (22.0-26.0) *H Arterial Blood Oxygen Saturation 98.0 % (95-100) 96.3 % (95-100) 97.3 % (95-100) Arterial Blood Base Excess 17.2 (-2-2) *H 16.2 (-2-2) *H 16.8 (-2-2) *H Apollo Test Positive Positive Positive Current Medications Medications (Trade) Dose Ordered Sig/Mayela Route PRN Reason Start Time Stop Time Status Last Admin Dose Admin Ascorbic Acid (Vitamin C) 500 mg DAILY GT 06/10/20 13:00 07/10/20 12:59 06/14/20 09:20 Carvedilol (Coreg) 6.25 mg EVERY 12 HOURS ORAL 06/13/20 09:00 07/13/20 08:59 06/14/20 09:20 Clonidine HCl (Catapres Tab) 0.1 mg Q4H PRN ORAL SBP >160 05/08/20 22:15 08/06/20 22:14 Levetiracetam (Keppra) 250 mg DAILY GT 05/19/20 15:11 06/18/20 15:10 06/14/20 09:20 Nitroglycerin (Nitro-Bid) 1 inch BEDTIME TOPIC 06/13/20 21:00 07/13/20 20:59 06/13/20 20:06 Tamsulosin HCl (Flomax) 0.4 mg BEDTIME ORAL 06/13/20 21:00 07/13/20 20:59 06/13/20 20:06 Josué Light MD Jun 14, 2020 11:15
[2020-06-14] MEDS ORDERED: NS 275ml ONE (11:46)
[2020-06-14 12:00] VITALS: BP 128/68
--- NOTE | 2020-06-14 12:23 | General Progress Note ---
Subjective ROS Limited/Unobtainable: No Constitutional: Reports: malaise, weakness HEENT: Reports: no symptoms Cardiovascular: Reports: no symptoms Respiratory: Reports: cough, shortness of breath Gastrointestinal/Abdominal: Reports: difficulty swallowing Genitourinary: Reports: no symptoms Neurologic/Psychiatric: Reports: anxiety, depressed, pre-existing deficit, seizure Endocrine: Reports: no symptoms Hematologic/Lymphatic: Reports: anemia Allergies: Coded Allergies: PENICILLINS (Unverified Allergy, Unknown, 08/11/19) All Systems: reviewed and negative except above Subjective no events. stable on o2. ABG noted- elevated pc02. lethargic. awake. no reports of szs. tolerating tube feeds Objective Last 24 Hour Vital Signs Date Time Temp Pulse Resp B/P (MAP) Pulse Ox O2 Delivery O2 Flow Rate FiO2 06/14/20 09:20 87 130/62 06/14/20 09:00 Nasal Cannula 3.0 Nasal Cannula 3.0 06/14/20 09:00 95 18 100 Nasal Cannula 3.0 32 06/14/20 08:00 50 06/14/20 08:00 95 06/14/20 08:00 97.7 87 20 130/62 (84) 100 06/14/20 07:00 100 Nasal Cannula 32 06/14/20 05:10 100 32 06/14/20 04:00 96.6 87 21 135/75 (95) 100 06/14/20 04:00 89 06/14/20 02:47 84 13 100 35 06/14/20 00:55 50 06/14/20 00:00 96.8 68 20 110/62 (78) 100 06/14/20 00:00 70 06/13/20 22:36 73 17 99 35 06/13/20 21:00 Nasal Cannula 3.0 Nasal Cannula 3.0 06/13/20 20:06 134/72 06/13/20 20:06 90 134/72 06/13/20 20:00 98.2 89 21 134/72 (92) 100 06/13/20 20:00 79 06/13/20 18:50 98 Bi-Pap 35 06/13/20 18:49 92 24 98 35 06/13/20 16:40 92 23 100 40 06/13/20 16:00 98.8 79 22 139/92 (108) 100 06/13/20 15:40 86 Intake and Output 06/13/20 06/14/20 19:00 07:00 Intake Total 630 ml 705 ml Output Total 1100 ml 1300 ml Balance -470 ml -595 ml Intake Free Water 150 ml 225 ml Tube Feeding 480 ml 480 ml Output Urine Total 1100 ml 1300 ml # Bowel Movements 2 Laboratory Tests 06/13/20 17:41: Arterial Blood pH 7.395, Arterial Blood Partial Pressure CO2 74.3*H, Arterial Blood Partial Pressure O2 86.5, Arterial Blood HCO3 44.5*H, Arterial Blood Oxygen Saturation 96.3, Arterial Blood Base Excess 16.2*H, Apollo Test Positive 06/14/20 07:49: Arterial Blood pH 7.399, Arterial Blood Partial Pressure CO2 74.5*H, Arterial Blood Partial Pressure O2 105.1H, Arterial Blood HCO3 45.0*H, Arterial Blood Oxygen Saturation 97.3, Arterial Blood Base Excess 16.8*H, Apollo Test Positive Height (Feet): 5 Height (Inches): 6.00 Weight (Pounds): 137 Objective General Appearance: WD/WN, alert, confused. on bipap EENT: normal ENT inspection Neck: normal alignment Cardiovascular: normal rate Respiratory/Chest: chest wall non-tender, lungs clear, normal breath sounds Abdomen: normal bowel sounds, non tender, soft, no organomegaly Edema: no edema noted Arm (L), no edema noted Arm (R) Neurologic: alert, disoriented Assessment/Plan Problem List: (1) Seizure ICD Codes: R56.9 - Unspecified convulsions SNOMED: 15470993 (2) Dysphagia ICD Codes: R13.10 - Dysphagia, unspecified SNOMED: 31231850, 097353422 (3) UTI (urinary tract infection) ICD Codes: N39.0 - Urinary tract infection, site not specified SNOMED: 01661572 (4) Elevated troponin I level ICD Codes: R77.8 - Other specified abnormalities of plasma proteins SNOMED: 087074261 (5) AMS (altered mental status) ICD Codes: R41.82 - Altered mental status, unspecified SNOMED: 059374773 (6) NSTEMI (non-ST elevated myocardial infarction) ICD Codes: I21.4 - Non-ST elevation (NSTEMI) myocardial infarction SNOMED: 83035359 Status: stable Assessment/Plan: nasal cannula during the day bipap at snailer abg tube feeds monitor residuals sz rx monitor labs anxiolytics as needed o2 resp rx dvt/stress ulcer prophylaxis. dc planning to snf when bed available Jorge Kee MD Jun 14, 2020 12:23
[2020-06-14 16:00] VITALS: BP 132/77
[2020-06-14 20:00] VITALS: BP 133/73
[2020-06-14] MEDS: Tamsulosin 0.4mg cap ORAL SCH (21:08)
[2020-06-14] MEDS: Nitroglycerin 2% oint pkt TOPIC SCH (21:08)
--- NOTE | 2020-06-14 23:06 | Surgery Progress Note ---
Surgery Progress Note Subjective Additional Comments no acute events Objective Last 24 Hour Vital Signs Date Time Temp Pulse Resp B/P (MAP) Pulse Ox O2 Delivery O2 Flow Rate FiO2 06/14/20 22:32 93 26 100 35 06/14/20 21:08 133/73 06/14/20 21:08 85 133/73 06/14/20 21:00 Nasal Cannula 3.0 Nasal Cannula 3.0 06/14/20 20:05 100 Nasal Cannula 2.0 28 06/14/20 20:00 3.0 06/14/20 20:00 97.5 83 16 133/73 (93) 94 06/14/20 19:22 77 06/14/20 17:13 138 06/14/20 16:00 69 06/14/20 16:00 3.0 06/14/20 16:00 96.8 71 17 132/77 (95) 100 06/14/20 12:00 97.5 60 18 128/68 (88) 100 06/14/20 12:00 3.0 06/14/20 12:00 75 06/14/20 09:20 87 130/62 06/14/20 09:00 Nasal Cannula 3.0 Nasal Cannula 3.0 06/14/20 09:00 95 18 100 Nasal Cannula 3.0 32 06/14/20 08:00 50 06/14/20 08:00 95 06/14/20 08:00 97.7 87 20 130/62 (84) 100 06/14/20 07:00 100 Nasal Cannula 32 06/14/20 05:10 100 32 06/14/20 04:00 96.6 87 21 135/75 (95) 100 06/14/20 04:00 89 06/14/20 02:47 84 13 100 35 06/14/20 00:55 50 06/14/20 00:00 96.8 68 20 110/62 (78) 100 06/14/20 00:00 70 I&O Intake and Output 06/13/20 06/14/20 19:00 07:00 Intake Total 630 ml 745 ml Output Total 1100 ml 1300 ml Balance -470 ml -555 ml Intake Free Water 150 ml 225 ml Tube Feeding 480 ml 520 ml Output Urine Total 1100 ml 1300 ml # Bowel Movements 2 Dressing: saturated Cardiovascular: RSR Respiratory: decreased breath sounds Abdomen: non-tender, present bowel sounds Extremities: no tenderness, no cyanosis Laboratory Tests Test 06/14/20 07:49 Arterial Blood pH 7.399 (7.350-7.450) Arterial Blood Partial Pressure CO2 74.5 mmHg (35.0-45.0) *H Arterial Blood Partial Pressure O2 105.1 mmHg (75.0-100.0) H Arterial Blood HCO3 45.0 mmol/L (22.0-26.0) *H Arterial Blood Oxygen Saturation 97.3 % (95-100) Arterial Blood Base Excess 16.8 (-2-2) *H Apollo Test Positive Plan Problems: (1) Deep tissue injury Assessment & Plan: Patient identified to have bilateral heel concerns for potential developing DTI. Soft boggy no fluid collection no acute injury at this time. Patient identified to have sacral erythema and skin changes with concerns for developing deep tissue injury as well. No open areas. No fluid collections no fluctuance no drainage. On the scrotum patient is identified to have edema erythema and some abrasion along with incontinence associated dermatitis in the area. Patient identified to have abrasion to the nasal brim secondary to a facemask placement. Patient is chronically ill elderly and malnourished. Wound evaluated and care plan initiated. Treatment plan Apply skin protectant to the nasal bridge followed by foam dressing prior to facemask placement. Patient currently requires oxygen supplementation and therefore important to ensure receiving such along with protection of underlying epidermis. Apply OPTi foam to heels change every 3 days offload pressure with pillows Apply OPTi foam to sacral area monitor for incontinence change accordingly every 3 days and as needed saturation. Soft towel under scrotum. Continue with respiratory supportive care Turn every 2 hours Offload pressure with pillows Continue tube feeds nutritional optimization we will follow with recommendations thank you for let me participate patient's care (2) Dementia with behavioral problem (3) UTI (urinary tract infection) (4) Elevated troponin I level (5) AMS (altered mental status) (6) Dysphagia Assessment & Plan: DAILY ESTIMATED NEEDS: Needs based on Pulmonary, cardiac, 62kg 25-30 kcals/kg 2312-8808 total kcals 1-1.5 g protein/kg 62-93 g total protein 25-30 mL/kg 8870-7471 total fluid mLs NUTRITION DIAGNOSIS: Swallowing difficulty r/t dysphagia as evidenced by pt is PEG dep, currently on continuous BIPAP. CURRENT TF: Glucerna 1.5 @ 40ml/hr ENTERAL NUTRITION RECOMMENDATIONS: Glucerna 1.5 goal of 45ml/hr x 24 hrs to provide 1080ml, 1620 kcal, 89g pro, 820ml free water * Maintain carb controlled TF of Glucerna 1.5 while CO2 critically elevated * As medically appropriate, increase goal rate to 45ml/hr x 24 hrs to better meet nutritional needs. * HOB over 30 degrees/ water flush per MD ADDITIONAL RECOMMENDATIONS: 1) Monitor BIPAP usage, safety of GT feeds -> continuous BIPAP at this time 2) Lytes daily, replete as needed Current TF Glucerna 1.5 @goal of 40ml/hr provides 2419mg K/day 3) Calibrated bed scale wts (Bed scale shows uptrend: 65kg-> 71kg) 4) Rec HgA1C for eval of BG control 5) F/up w/ WC eval: Continue MVI and Vit C (7) Seizure (8) NSTEMI (non-ST elevated myocardial infarction) (9) Respiratory insufficiency Assessment & Plan: constant required bipap ? trach dnr/dni discussed with pcp and pulm Duplex Doppler interrogation of the veins in both upper extremity is performed from the internal jugular veins to the radial and ulnar veins. No thrombus is identified. Basilic and cephalic veins are also patent bilaterally. There is mild subcutaneous edema of the right upper extremity. IMPRESSION: No evidence of deep venous thrombosis involving the upper extremities. Benitez Mayorga Jun 14, 2020 23:06
[2020-06-15] VITALS: BP 140/83
[2020-06-15 04:00] VITALS: BP 135/71
[2020-06-15 08:00] VITALS: BP 132/79
[2020-06-15] MEDS: levETIRAcetam 500mg/5ml Liquid GT SCH (08:28)
[2020-06-15] MEDS: Carvedilol 6.25mg Tab ORAL SCH ×2 (08:29→20:55)
[2020-06-15] MEDS: Ascorbic Acid 500mg tab GT SCH (09:02)
--- NOTE | 2020-06-15 10:02 | General Progress Note ---
Subjective ROS Limited/Unobtainable: No Constitutional: Reports: malaise, weakness HEENT: Reports: no symptoms Cardiovascular: Reports: no symptoms Respiratory: Reports: cough, shortness of breath Gastrointestinal/Abdominal: Reports: difficulty swallowing Genitourinary: Reports: no symptoms Neurologic/Psychiatric: Reports: pre-existing deficit, seizure Endocrine: Reports: no symptoms Hematologic/Lymphatic: Reports: anemia Allergies: Coded Allergies: PENICILLINS (Unverified Allergy, Unknown, 08/11/19) All Systems: reviewed and negative except above Subjective no events. currently on bipap. abg improved. no fevers. no szs. confused. tolerating tube feeds. Objective Last 24 Hour Vital Signs Date Time Temp Pulse Resp B/P (MAP) Pulse Ox O2 Delivery O2 Flow Rate FiO2 06/15/20 09:00 Nasal Cannula 3.0 Nasal Cannula 3.0 06/15/20 08:29 86 132/79 06/15/20 08:00 97.7 86 20 132/79 (96) 97 06/15/20 08:00 3.0 06/15/20 08:00 94 06/15/20 07:51 97 Nasal Cannula 3.0 32 06/15/20 07:51 83 97 06/15/20 04:00 3.0 06/15/20 04:00 91 06/15/20 04:00 97.2 70 15 135/71 (92) 94 06/15/20 03:16 94 20 99 35 06/15/20 00:00 75 06/15/20 00:00 97.7 88 16 140/83 (102) 95 06/14/20 22:32 93 26 100 35 06/14/20 21:08 133/73 06/14/20 21:08 85 133/73 06/14/20 21:00 Nasal Cannula 3.0 Nasal Cannula 3.0 06/14/20 20:05 100 Nasal Cannula 2.0 28 06/14/20 20:00 3.0 06/14/20 20:00 97.5 83 16 133/73 (93) 94 06/14/20 19:22 77 06/14/20 17:13 138 06/14/20 16:00 69 06/14/20 16:00 3.0 06/14/20 16:00 96.8 71 17 132/77 (95) 100 06/14/20 12:00 97.5 60 18 128/68 (88) 100 06/14/20 12:00 3.0 06/14/20 12:00 75 Intake and Output 06/14/20 06/15/20 19:00 07:00 Intake Total 665 ml 705 ml Output Total 700 ml 1200 ml Balance -35 ml -495 ml Intake Free Water 225 ml 225 ml Tube Feeding 440 ml 480 ml Output Urine Total 700 ml 1200 ml # Bowel Movements 1 1 Laboratory Tests 06/15/20 07:02: Arterial Blood pH 7.462H, Arterial Blood Partial Pressure CO2 58.2*H, Arterial Blood Partial Pressure O2 81.5, Arterial Blood HCO3 40.7*H, Arterial Blood Oxygen Saturation 95.5, Arterial Blood Base Excess 14.4*H, Apollo Test Positive Height (Feet): 5 Height (Inches): 6.00 Weight (Pounds): 137 Objective General Appearance: WD/WN, alert, confused. on bipap EENT: normal ENT inspection Neck: normal alignment Cardiovascular: normal rate Respiratory/Chest: chest wall non-tender, lungs clear, normal breath sounds Abdomen: normal bowel sounds, non tender, soft, no organomegaly Edema: no edema noted Arm (L), no edema noted Arm (R) Neurologic: alert, disoriented Assessment/Plan Problem List: (1) Seizure ICD Codes: R56.9 - Unspecified convulsions SNOMED: 14908068 (2) Dysphagia ICD Codes: R13.10 - Dysphagia, unspecified SNOMED: 34215772, 685142184 (3) UTI (urinary tract infection) ICD Codes: N39.0 - Urinary tract infection, site not specified SNOMED: 14033435 (4) Elevated troponin I level ICD Codes: R77.8 - Other specified abnormalities of plasma proteins SNOMED: 173415637 (5) AMS (altered mental status) ICD Codes: R41.82 - Altered mental status, unspecified SNOMED: 330036250 (6) NSTEMI (non-ST elevated myocardial infarction) ICD Codes: I21.4 - Non-ST elevation (NSTEMI) myocardial infarction SNOMED: 36402364 Status: stable Assessment/Plan: nasal cannula during the day bipap at monitoring specialist abg tube feeds monitor residuals sz rx monitor labs anxiolytics as needed o2 resp rx dvt/stress ulcer prophylaxis. dc planning to snf when bed available Jorge Kee MD Jun 15, 2020 10:02
--- NOTE | 2020-06-15 11:05 | Diagnostic Imaging Report ---
EXAM: XR Chest, 1 View CLINICAL HISTORY: Shortness of breath TECHNIQUE: Frontal view of the chest. COMPARISON: Chest x-rays dated 06/13/20 FINDINGS: Lungs: No significant change in the left perihilar infiltrate. Persistent prominent interstitial markings in bilateral lungs. Pleural space: Unchanged small left pleural effusion. Heart: Unremarkable. No cardiomegaly. Mediastinum: Unremarkable. Bones/joints: Unremarkable. Vasculature: Atherosclerotic calcifications are noted within the aortic arch. Tubes, lines and devices: Telemetry leads overlie the thorax. IMPRESSION: No significant interval change from the prior chest x-ray. Persistent left perihilar infiltrate and small left pleural effusion.
--- NOTE | 2020-06-15 11:50 | Pulmonology Progress Note ---
Subjective ROS Limited/Unobtainable: Yes Constitutional: Reports: other - looks better Allergies: Coded Allergies: PENICILLINS (Unverified Allergy, Unknown, 08/11/19) All Systems: reviewed and negative except above Subjective care noted requiring BIPAP intermittently now on NC Objective Last 24 Hour Vital Signs Date Time Temp Pulse Resp B/P (MAP) Pulse Ox O2 Delivery O2 Flow Rate FiO2 06/15/20 09:00 Nasal Cannula 3.0 Nasal Cannula 3.0 06/15/20 08:29 86 132/79 06/15/20 08:00 97.7 86 20 132/79 (96) 97 06/15/20 08:00 3.0 06/15/20 08:00 94 06/15/20 07:51 97 Nasal Cannula 3.0 32 06/15/20 07:51 83 97 06/15/20 04:00 3.0 06/15/20 04:00 91 06/15/20 04:00 97.2 70 15 135/71 (92) 94 06/15/20 03:16 94 20 99 35 06/15/20 00:00 75 06/15/20 00:00 97.7 88 16 140/83 (102) 95 06/14/20 22:32 93 26 100 35 06/14/20 21:08 133/73 06/14/20 21:08 85 133/73 06/14/20 21:00 Nasal Cannula 3.0 Nasal Cannula 3.0 06/14/20 20:05 100 Nasal Cannula 2.0 28 06/14/20 20:00 3.0 06/14/20 20:00 97.5 83 16 133/73 (93) 94 06/14/20 19:22 77 06/14/20 17:13 138 06/14/20 16:00 69 06/14/20 16:00 3.0 06/14/20 16:00 96.8 71 17 132/77 (95) 100 06/14/20 12:00 97.5 60 18 128/68 (88) 100 06/14/20 12:00 3.0 06/14/20 12:00 75 Intake and Output 06/14/20 06/15/20 19:00 07:00 Intake Total 665 ml 705 ml Output Total 700 ml 1200 ml Balance -35 ml -495 ml Intake Free Water 225 ml 225 ml Tube Feeding 440 ml 480 ml Output Urine Total 700 ml 1200 ml # Bowel Movements 1 1 Objective WDWN NAD reduced breath sounds bilaterally - no rhonchi or wheeze [id number] without MRG NABS nontender no CC mild edema as is nonfocal on BIPAP reduced LOC Laboratory Tests 06/15/20 07:02: Arterial Blood pH 7.462H, Arterial Blood Partial Pressure CO2 58.2*H, Arterial Blood Partial Pressure O2 81.5, Arterial Blood HCO3 40.7*H, Arterial Blood Oxygen Saturation 95.5, Arterial Blood Base Excess 14.4*H, Apollo Test Positive Current Medications Medications (Trade) Dose Ordered Sig/Mayela Route PRN Reason Start Time Stop Time Status Last Admin Dose Admin Ascorbic Acid (Vitamin C) 500 mg DAILY GT 06/10/20 13:00 07/10/20 12:59 06/15/20 09:02 Carvedilol (Coreg) 6.25 mg EVERY 12 HOURS ORAL 06/13/20 09:00 07/13/20 08:59 06/15/20 08:29 Clonidine HCl (Catapres Tab) 0.1 mg Q4H PRN ORAL SBP >160 05/08/20 22:15 08/06/20 22:14 Levetiracetam (Keppra) 250 mg DAILY GT 05/19/20 15:11 06/18/20 15:10 06/15/20 08:28 Nitroglycerin (Nitro-Bid) 1 inch BEDTIME TOPIC 06/13/20 21:00 07/13/20 20:59 06/14/20 21:08 Tamsulosin HCl (Flomax) 0.4 mg BEDTIME ORAL 06/13/20 21:00 07/13/20 20:59 06/14/20 21:08 Assessment/Plan Assessment/Plan ASSESSMENT: Pulmonary congestion, respiratory failure, hypoxemia dementia, G-tube, seizure disorder, congestive heart failure, COPD sepsis, and acute UT. acute on chronic CO2 retention PLAN: oxygen as is; stable thus far. Breathing treatments and aspiration precautions. Monitor blood gases for change- now improved.keep negative. seizure medications. feeds and monitor residuals; DNR noted DVT prophylaxis; monitor imaging BIPAP as needed; repeat CXR guarded and at risk for decompensation dc planning on hold impression, plan, and exam edited and reviewed in detail care discussed with Attila Yuan MD Jun 15, 2020 11:50
[2020-06-15 12:00] VITALS: BP 137/79
--- NOTE | 2020-06-15 13:00 | Infectious Diseases Prog Note ---
Assessment/Plan Assessment/Plan A: 1. Pneumonia treated 2. MRSA nasal colonization. 3. CHF. 4. COPD. 5. Seizures. 6. Dementia. 7. He is negative for COVID-19. 8. Hypercapnic respiratory failure 9. Pleural effusion 10. Leukocytosis resolved PLAN: 1. Observe off antibiotic Subjective ROS Limited/Unobtainable: Yes Constitutional: Denies: fever Musculoskeletal: Denies: pain Allergies: Coded Allergies: PENICILLINS (Unverified Allergy, Unknown, 08/11/19) Objective Last 24 Hour Vital Signs Date Time Temp Pulse Resp B/P (MAP) Pulse Ox O2 Delivery O2 Flow Rate FiO2 06/15/20 12:00 3.0 06/15/20 12:00 97.7 68 24 137/79 (98) 98 06/15/20 12:00 73 06/15/20 09:00 Nasal Cannula 3.0 Nasal Cannula 3.0 06/15/20 08:29 86 132/79 06/15/20 08:00 97.7 86 20 132/79 (96) 97 06/15/20 08:00 3.0 06/15/20 08:00 94 06/15/20 07:51 97 Nasal Cannula 3.0 32 06/15/20 07:51 83 97 06/15/20 04:00 3.0 06/15/20 04:00 91 06/15/20 04:00 97.2 70 15 135/71 (92) 94 06/15/20 03:16 94 20 99 35 06/15/20 00:00 75 06/15/20 00:00 97.7 88 16 140/83 (102) 95 06/14/20 22:32 93 26 100 35 06/14/20 21:08 133/73 06/14/20 21:08 85 133/73 06/14/20 21:00 Nasal Cannula 3.0 Nasal Cannula 3.0 06/14/20 20:05 100 Nasal Cannula 2.0 28 06/14/20 20:00 3.0 06/14/20 20:00 97.5 83 16 133/73 (93) 94 06/14/20 19:22 77 06/14/20 17:13 138 06/14/20 16:00 69 06/14/20 16:00 3.0 06/14/20 16:00 96.8 71 17 132/77 (95) 100 Height (Feet): 5 Height (Inches): 6.00 Weight (Pounds): 137 General Appearance: no acute distress HEENT: mucous membranes moist Respiratory/Chest: lungs clear, other - by nasal cannula Cardiovascular: normal rate Abdomen: soft, non tender, other - GT feeding Extremities: no edema Neurologic/Psychiatric: alert, responsive Laboratory Tests Test 06/15/20 07:02 Arterial Blood pH 7.462 (7.350-7.450) Arterial Blood Partial Pressure CO2 58.2 mmHg (35.0-45.0) *H Arterial Blood Partial Pressure O2 81.5 mmHg (75.0-100.0) Arterial Blood HCO3 40.7 mmol/L (22.0-26.0) *H Arterial Blood Oxygen Saturation 95.5 % (95-100) Arterial Blood Base Excess 14.4 (-2-2) *H Apollo Test Positive Current Medications Medications (Trade) Dose Ordered Sig/Mayela Route PRN Reason Start Time Stop Time Status Last Admin Dose Admin Ascorbic Acid (Vitamin C) 500 mg DAILY GT 06/10/20 13:00 07/10/20 12:59 06/15/20 09:02 Carvedilol (Coreg) 6.25 mg EVERY 12 HOURS ORAL 06/13/20 09:00 07/13/20 08:59 06/15/20 08:29 Clonidine HCl (Catapres Tab) 0.1 mg Q4H PRN ORAL SBP >160 05/08/20 22:15 08/06/20 22:14 Levetiracetam (Keppra) 250 mg DAILY GT 05/19/20 15:11 06/18/20 15:10 06/15/20 08:28 Nitroglycerin (Nitro-Bid) 1 inch BEDTIME TOPIC 06/13/20 21:00 07/13/20 20:59 06/14/20 21:08 Tamsulosin HCl (Flomax) 0.4 mg BEDTIME ORAL 06/13/20 21:00 07/13/20 20:59 06/14/20 21:08 Luis Yanes MD Jun 15, 2020 13:00
[2020-06-15 16:00] VITALS: BP 145/88
--- NOTE | 2020-06-15 16:02 | Surgery Progress Note ---
Surgery Progress Note Subjective Additional Comments no acute distress imaging noted labs reviewed Objective Last 24 Hour Vital Signs Date Time Temp Pulse Resp B/P (MAP) Pulse Ox O2 Delivery O2 Flow Rate FiO2 06/15/20 12:00 3.0 06/15/20 12:00 97.7 68 24 137/79 (98) 98 06/15/20 12:00 73 06/15/20 09:00 Nasal Cannula 3.0 Nasal Cannula 3.0 06/15/20 08:29 86 132/79 06/15/20 08:00 97.7 86 20 132/79 (96) 97 06/15/20 08:00 3.0 06/15/20 08:00 94 06/15/20 07:51 97 Nasal Cannula 3.0 32 06/15/20 07:51 83 97 06/15/20 04:00 3.0 06/15/20 04:00 91 06/15/20 04:00 97.2 70 15 135/71 (92) 94 06/15/20 03:16 94 20 99 35 06/15/20 00:00 75 06/15/20 00:00 97.7 88 16 140/83 (102) 95 06/14/20 22:32 93 26 100 35 06/14/20 21:08 133/73 06/14/20 21:08 85 133/73 06/14/20 21:00 Nasal Cannula 3.0 Nasal Cannula 3.0 06/14/20 20:05 100 Nasal Cannula 2.0 28 06/14/20 20:00 3.0 06/14/20 20:00 97.5 83 16 133/73 (93) 94 06/14/20 19:22 77 06/14/20 17:13 138 I&O Intake and Output 06/14/20 06/15/20 19:00 07:00 Intake Total 665 ml 705 ml Output Total 700 ml 1200 ml Balance -35 ml -495 ml Intake Free Water 225 ml 225 ml Tube Feeding 440 ml 480 ml Output Urine Total 700 ml 1200 ml # Bowel Movements 1 1 Cardiovascular: RSR Respiratory: decreased breath sounds Abdomen: present bowel sounds Extremities: no cyanosis Laboratory Tests Test 06/15/20 07:02 Arterial Blood pH 7.462 (7.350-7.450) Arterial Blood Partial Pressure CO2 58.2 mmHg (35.0-45.0) *H Arterial Blood Partial Pressure O2 81.5 mmHg (75.0-100.0) Arterial Blood HCO3 40.7 mmol/L (22.0-26.0) *H Arterial Blood Oxygen Saturation 95.5 % (95-100) Arterial Blood Base Excess 14.4 (-2-2) *H Apollo Test Positive Plan Problems: (1) Deep tissue injury Assessment & Plan: Patient identified to have bilateral heel concerns for potential developing DTI. Soft boggy no fluid collection no acute injury at this time. Patient identified to have sacral erythema and skin changes with concerns for developing deep tissue injury as well. No open areas. No fluid collections no fluctuance no drainage. On the scrotum patient is identified to have edema erythema and some abrasion along with incontinence associated dermatitis in the area. Patient identified to have abrasion to the nasal brim secondary to a facemask placement. Patient is chronically ill elderly and malnourished. Wound evaluated and care plan initiated. Treatment plan Apply skin protectant to the nasal bridge followed by foam dressing prior to facemask placement. Patient currently requires oxygen supplementation and therefore important to ensure receiving such along with protection of underlying epidermis. Apply OPTi foam to heels change every 3 days offload pressure with pillows Apply OPTi foam to sacral area monitor for incontinence change accordingly every 3 days and as needed saturation. Soft towel under scrotum. Continue with respiratory supportive care Turn every 2 hours Offload pressure with pillows Continue tube feeds nutritional optimization we will follow with recommendations thank you for let me participate patient's care (2) Dementia with behavioral problem (3) UTI (urinary tract infection) (4) Elevated troponin I level (5) AMS (altered mental status) (6) Dysphagia Assessment & Plan: DAILY ESTIMATED NEEDS: Needs based on Pulmonary, cardiac, 62kg 25-30 kcals/kg 5586-4233 total kcals 1-1.5 g protein/kg 62-93 g total protein 25-30 mL/kg 1978-0508 total fluid mLs NUTRITION DIAGNOSIS: Swallowing difficulty r/t dysphagia as evidenced by pt is PEG dep, currently on continuous BIPAP. CURRENT TF: Glucerna 1.5 @ 40ml/hr ENTERAL NUTRITION RECOMMENDATIONS: Glucerna 1.5 goal of 45ml/hr x 24 hrs to provide 1080ml, 1620 kcal, 89g pro, 820ml free water * Maintain carb controlled TF of Glucerna 1.5 while CO2 critically elevated * As medically appropriate, increase goal rate to 45ml/hr x 24 hrs to better meet nutritional needs. * HOB over 30 degrees/ water flush per MD ADDITIONAL RECOMMENDATIONS: 1) Monitor BIPAP usage, safety of GT feeds -> continuous BIPAP at this time 2) Lytes daily, replete as needed Current TF Glucerna 1.5 @goal of 40ml/hr provides 2419mg K/day 3) Calibrated bed scale wts (Bed scale shows uptrend: 65kg-> 71kg) 4) Rec HgA1C for eval of BG control 5) F/up w/ WC eval: Continue MVI and Vit C (7) Seizure (8) NSTEMI (non-ST elevated myocardial infarction) (9) Respiratory insufficiency Assessment & Plan: constant required bipap ? trach dnr/dni discussed with pcp and pulm Duplex Doppler interrogation of the veins in both upper extremity is performed from the internal jugular veins to the radial and ulnar veins. No thrombus is iden tified. Basilic and cephalic veins are also patent bilaterally. There is mild subcutaneous edema of the right upper extremity. IMPRESSION: No evidence of deep venous thrombosis involving the upper extremities. Benitez Mayorga Jun 15, 2020 16:02
[2020-06-15 20:00] VITALS: BP 146/81
[2020-06-15] MEDS: Tamsulosin 0.4mg cap ORAL SCH (20:55)
[2020-06-15] MEDS: Nitroglycerin 2% oint pkt TOPIC SCH (20:55)
[2020-06-16] VITALS: BP_SYST 104; BP_SYST 141; BP_SYST 146; BP_DIAS 59; BP_DIAS 81; BP_DIAS 87
--- NOTE | 2020-06-16 00:40 | Cardiology Progress Note ---
Subjective DATE OF SERVICE: Jun 14, 2020 Requiring bipap again for worsening CO2 retention. BP remains well controlled. BNP increased to 2500 range, and patient was diuresed further with BNP decreasing now to 700 range, most recently. Monitor: sinus with rare non-sustained ectopy. ABG (06/14) 7.40/74/105 Objective 133/73 85 18-26 on bipap afebrile Last 24 Hour Vital Signs ROS: unchanged from my evaluation of 05/06/20 HEENT: normal ENT inspection, other - bipap mask RHYTHM: NSR, VT LUNGS: diminished breath sounds, left-sided rhonchi CARDIAC: normal rate, regular rhythm, normal S1 and S2 ABDOMEN: non tender, soft, G-Tube intact EXTREMITIES: non-pitting, No edema Laboratory Tests Test 06/15/20 07:02 Arterial Blood pH 7.462 (7.350-7.450) Arterial Blood Partial Pressure CO2 58.2 mmHg (35.0-45.0) *H Arterial Blood Partial Pressure O2 81.5 mmHg (75.0-100.0) Arterial Blood HCO3 40.7 mmol/L (22.0-26.0) *H Arterial Blood Oxygen Saturation 95.5 % (95-100) Arterial Blood Base Excess 14.4 (-2-2) *H Apollo Test Positive Assessment/Plan Assessment/Plan E.coli UTI Sepsis Metabolic and toxic encephalopathies Cerebrovascular disease with dementia Acute myocardial ischemia and possible NSTEMI Dehydration/hypernatremia Hypertension/HHD Ac/chronic respiratory acidosis now compensated Respiratory failure improving, but still requiring bipap support Ac diastolic CHF; BNP relatively unchanged. Metabolic acidosis resolved Pleural effusions Ac/chr renal failure with azotemia Paroxysmal ventricular tachycardia Hyperkalemia from exogenous repl rx - resolved Continue anti-anginal regimen including nitrates. Maintain current antiHTN regimen. Antimicrobial therapy per ID. Maintain adequate free water per Gtube. No current need to diurese further; monitor volume status and trend BNP. Bipap support-as needed to correct CO2 retention Real Magana MD Jun 16, 2020 00:40
--- NOTE | 2020-06-16 00:42 | Cardiology Progress Note ---
Subjective DATE OF SERVICE: Jun 15, 2020 On bipap again; CO2 retention improved over past 24 hrs. BP remains well controlled. BNP increased to 2500 range, and patient was diuresed further with BNP decreasing now to 700 range, most recently. Monitor: sinus with rare non-sustained ectopy. ABG (06/15) 7.46/58/81 Objective Last 24 Hour Vital Signs Date Time Temp Pulse Resp B/P (MAP) Pulse Ox O2 Delivery O2 Flow Rate FiO2 06/16/20 00:00 97.0 73 22 104/59 (74) 100 06/16/20 00:00 77 06/15/20 23:09 77 100 06/15/20 21:00 Nasal Cannula 3.0 Nasal Cannula 3.0 06/15/20 20:55 146/81 06/15/20 20:55 77 146/81 06/15/20 20:00 97.9 77 24 146/81 (102) 100 06/15/20 20:00 3.0 06/15/20 19:54 82 06/15/20 19:05 98 Nasal Cannula 3.0 32 06/15/20 16:00 97.9 72 24 145/88 (107) 99 06/15/20 16:00 3.0 06/15/20 16:00 74 06/15/20 12:00 3.0 06/15/20 12:00 97.7 68 24 137/79 (98) 98 06/15/20 12:00 73 06/15/20 09:00 Nasal Cannula 3.0 Nasal Cannula 3.0 06/15/20 08:29 86 132/79 06/15/20 08:00 97.7 86 20 132/79 (96) 97 06/15/20 08:00 3.0 06/15/20 08:00 94 06/15/20 07:51 97 Nasal Cannula 3.0 32 06/15/20 07:51 83 97 06/15/20 04:00 3.0 06/15/20 04:00 91 06/15/20 04:00 97.2 70 15 135/71 (92) 94 06/15/20 03:16 94 20 99 35 ROS: unchanged from my evaluation of 05/06/20 HEENT: normal ENT inspection, other - bipap mask RHYTHM: NSR, VT LUNGS: diminished breath sounds, left-sided rhonchi CARDIAC: normal rate, regular rhythm, normal S1 and S2 ABDOMEN: non tender, soft, G-Tube intact EXTREMITIES: non-pitting, No edema Laboratory Tests Test 06/15/20 07:02 Arterial Blood pH 7.462 (7.350-7.450) Arterial Blood Partial Pressure CO2 58.2 mmHg (35.0-45.0) *H Arterial Blood Partial Pressure O2 81.5 mmHg (75.0-100.0) Arterial Blood HCO3 40.7 mmol/L (22.0-26.0) *H Arterial Blood Oxygen Saturation 95.5 % (95-100) Arterial Blood Base Excess 14.4 (-2-2) *H Apollo Test Positive Assessment/Plan Assessment/Plan E.coli UTI Sepsis Metabolic and toxic encephalopathies Cerebrovascular disease with dementia Acute myocardial ischemia and possible NSTEMI Dehydration/hypernatremia Hypertension/HHD Ac/chronic respiratory acidosis now compensated Respiratory failure improving, but still requiring bipap support Ac diastolic CHF; BNP relatively unchanged. Metabolic acidosis resolved Pleural effusions Ac/chr renal failure with azotemia Paroxysmal ventricular tachycardia Hyperkalemia from exogenous repl rx - resolved Continue anti-anginal regimen including nitrates. Maintain current antiHTN regimen. Antimicrobial therapy per ID. Maintain adequate free water per Gtube. No current need to diurese further; monitor volume status and trend BNP. Bipap support-as needed to correct CO2 retention. Repeat labs ordered, incl BNP. Real Magana MD Jun 16, 2020 00:42
[2020-06-16 04:00] VITALS: BP 125/66
[2020-06-16 07:20] LABS: ALANINE AMINOTRANSFERASE 51 U/L (12-78); ALBUMIN 3.3 G/DL (3.4-5.0); ALBUMIN/GLOBULIN RATIO 0.7 (1.0-2.7); ALKALINE PHOSPHATASE 106 U/L (46-116); ASPARTATE AMINO TRANSFERASE 31 U/L (15-37); BILIRUBIN,TOTAL 0.4 MG/DL (0.2-1.0); BLOOD UREA NITROGEN 21 mg/dL (7-18); CALCIUM 9.4 MG/DL (8.5-10.1); CHLORIDE 98 MMOL/L (98-107); CREATININE 0.5 MG/DL (0.55-1.30); POTASSIUM 4.6 MMOL/L (3.5-5.1); SODIUM 140 MMOL/L (136-145)
--- NOTE | 2020-06-16 07:31 | General Progress Note ---
Subjective ROS Limited/Unobtainable: Yes Constitutional: Reports: malaise, weakness HEENT: Reports: no symptoms Cardiovascular: Reports: no symptoms Respiratory: Reports: cough Gastrointestinal/Abdominal: Reports: no symptoms Genitourinary: Reports: no symptoms Neurologic/Psychiatric: Reports: pre-existing deficit, seizure Endocrine: Reports: no symptoms Hematologic/Lymphatic: Reports: anemia Allergies: Coded Allergies: PENICILLINS (Unverified Allergy, Unknown, 08/11/19) All Systems: reviewed and negative except above Subjective stable. just taken off bipap. lethargic and poorly responsive. no fevers. tolerating tube feeds. cxr with left perihilar infil. currently off abx. Objective Last 24 Hour Vital Signs Date Time Temp Pulse Resp B/P (MAP) Pulse Ox O2 Delivery O2 Flow Rate FiO2 06/16/20 04:00 71 06/16/20 04:00 3.0 06/16/20 04:00 97.7 70 20 125/66 (85) 100 06/16/20 00:00 3.0 06/16/20 00:00 97.0 73 22 104/59 (74) 100 06/16/20 00:00 77 06/15/20 23:09 77 100 06/15/20 21:00 Nasal Cannula 3.0 Nasal Cannula 3.0 06/15/20 20:55 146/81 06/15/20 20:55 77 146/81 06/15/20 20:00 97.9 77 24 146/81 (102) 100 06/15/20 20:00 3.0 06/15/20 19:54 82 06/15/20 19:05 98 Nasal Cannula 3.0 32 06/15/20 16:00 97.9 72 24 145/88 (107) 99 06/15/20 16:00 3.0 06/15/20 16:00 74 06/15/20 12:00 3.0 06/15/20 12:00 97.7 68 24 137/79 (98) 98 06/15/20 12:00 73 06/15/20 09:00 Nasal Cannula 3.0 Nasal Cannula 3.0 06/15/20 08:29 86 132/79 06/15/20 08:00 97.7 86 20 132/79 (96) 97 06/15/20 08:00 3.0 06/15/20 08:00 94 06/15/20 07:51 97 Nasal Cannula 3.0 32 06/15/20 07:51 83 97 Intake and Output 06/15/20 06/16/20 19:00 07:00 Intake Total 1370 ml 735 ml Output Total 300 ml 255 ml Balance 1070 ml 480 ml Intake Free Water 450 ml 255 ml Tube Feeding 920 ml 480 ml Output Urine Total 300 ml 250 ml Stool Total 5 ml # Bowel Movements 1 Laboratory Tests 06/16/20 05:46: White Blood Count [Pending], Red Blood Count [Pending], Hemoglobin [Pending], Hematocrit [Pending], Mean Corpuscular Volume [Pending], Mean Corpuscular Hemoglobin [Pending], Mean Corpuscular Hemoglobin Concent [Pending], Red Cell Distribution Width [Pending], Platelet Count [Pending], Mean Platelet Volume [Pending], Neutrophils (%) (Auto) [Pending], Lymphocytes (%) (Auto) [Pending], Monocytes (%) (Auto) [Pending], Eosinophils (%) (Auto) [Pending], Basophils (%) (Auto) [Pending], Sodium Level [Pending], Potassium Level [Pending], Chloride Level [Pending], Carbon Dioxide Level [Pending], Blood Urea Nitrogen [Pending], Creatinine [Pending], Estimat Glomerular Filtration Rate [Pending], Glucose Level [Pending], Calcium Level [Pending], Magnesium Level [Pending], Total Bilirubin [Pending], Aspartate Amino Transf (AST/SGOT) [Pending], Alanine Aminotransferase (ALT/SGPT) [Pending], Alkaline Phosphatase [Pending], Pro-B-Type Natriuretic Peptide [Pending], Total Protein [Pending], Albumin [Pending], Globulin [Pending] Height (Feet): 5 Height (Inches): 6.00 Weight (Pounds): 137 Objective General Appearance: WD/WN, alert, confused. on bipap EENT: normal ENT inspection Neck: normal alignment Cardiovascular: normal rate Respiratory/Chest: chest wall non-tender, lungs clear, normal breath sounds Abdomen: normal bowel sounds, non tender, soft, no organomegaly Edema: no edema noted Arm (L), no edema noted Arm (R) Neurologic: alert, disoriented Assessment/Plan Problem List: (1) Seizure ICD Codes: R56.9 - Unspecified convulsions SNOMED: 95370755 (2) Dysphagia ICD Codes: R13.10 - Dysphagia, unspecified SNOMED: 93615832, 609802897 (3) UTI (urinary tract infection) ICD Codes: N39.0 - Urinary tract infection, site not specified SNOMED: 01861760 (4) Elevated troponin I level ICD Codes: R77.8 - Other specified abnormalities of plasma proteins SNOMED: 660397577 (5) AMS (altered mental status) ICD Codes: R41.82 - Altered mental status, unspecified SNOMED: 383074282 (6) NSTEMI (non-ST elevated myocardial infarction) ICD Codes: I21.4 - Non-ST elevation (NSTEMI) myocardial infarction SNOMED: 89721288 Status: stable Assessment/Plan: nasal cannula during the day bipap [place] monitor abg tube feeds monitor residuals sz rx labs pendign- will follow up anxiolytics as needed o2 resp rx dvt/stress ulcer prophylaxis. dc planning to snf when bed available Jorge Kee MD Jun 16, 2020 07:31
[2020-06-16 07:33] LABS: BASOPHILS % (AUTO) 1.3 % (0.0-2.0); EOSINOPHILS % (AUTO) 3.1 % (0.0-3.0); HEMATOCRIT 39.2 % (42.0-52.0); HEMOGLOBIN 12.9 G/DL (14.2-18.0); MEAN CORPUSCULAR VOLUME 98 FL (80-99); MONOCYTES % (AUTO) 8.2 % (1.0-10.0); NEUTROPHILS % (AUTO) 61.3 % (45.0-75.0); PLATELET COUNT 126 K/UL (150-450); RED CELL DISTRIBUTION WIDTH 15.1 % (11.6-14.8)
[2020-06-16 07:43] LABS: CARBON DIOXIDE 37 MMOL/L (21-32)
--- NOTE | 2020-06-16 07:52 | Pulmonology Progress Note ---
Subjective ROS Limited/Unobtainable: Yes Constitutional: Denies: fever Musculoskeletal: Denies: pain Allergies: Coded Allergies: PENICILLINS (Unverified Allergy, Unknown, 08/11/19) All Systems: reviewed and negative except above Subjective care noted requiring BIPAP intermittently now on NC and doing well Objective Last 24 Hour Vital Signs Date Time Temp Pulse Resp B/P (MAP) Pulse Ox O2 Delivery O2 Flow Rate FiO2 06/16/20 04:00 71 06/16/20 04:00 3.0 06/16/20 04:00 97.7 70 20 125/66 (85) 100 06/16/20 00:00 3.0 06/16/20 00:00 97.0 73 22 104/59 (74) 100 06/16/20 00:00 77 06/15/20 23:09 77 100 06/15/20 21:00 Nasal Cannula 3.0 Nasal Cannula 3.0 06/15/20 20:55 146/81 06/15/20 20:55 77 146/81 06/15/20 20:00 97.9 77 24 146/81 (102) 100 06/15/20 20:00 3.0 06/15/20 19:54 82 06/15/20 19:05 98 Nasal Cannula 3.0 32 06/15/20 16:00 97.9 72 24 145/88 (107) 99 06/15/20 16:00 3.0 06/15/20 16:00 74 06/15/20 12:00 3.0 06/15/20 12:00 97.7 68 24 137/79 (98) 98 06/15/20 12:00 73 06/15/20 09:00 Nasal Cannula 3.0 Nasal Cannula 3.0 06/15/20 08:29 86 132/79 06/15/20 08:00 97.7 86 20 132/79 (96) 97 06/15/20 08:00 3.0 06/15/20 08:00 94 Intake and Output 06/15/20 06/16/20 19:00 07:00 Intake Total 1370 ml 735 ml Output Total 300 ml 255 ml Balance 1070 ml 480 ml Intake Free Water 450 ml 255 ml Tube Feeding 920 ml 480 ml Output Urine Total 300 ml 250 ml Stool Total 5 ml # Bowel Movements 1 Objective WDWN NAD reduced breath sounds bilaterally - no rhonchi or wheeze [id number] without MRG NABS nontender no CC mild edema as is nonfocal on BIPAP reduced LOC Laboratory Tests 06/16/20 05:46: White Blood Count 6.0, Red Blood Count 4.00L, Hemoglobin 12.9L, Hematocrit 39.2L , Mean Corpuscular Volume 98, Mean Corpuscular Hemoglobin 32.3H, Mean C orpuscular Hemoglobin Concent 32.9, Red Cell Distribution Width 15.1H, Platelet Count 126L, Mean Platelet Volume 10.9H, Neutrophils (%) (Auto) 61.3, Lymphocytes (%) (Auto) 26.0, Monocytes (%) (Auto) 8.2, Eosinophils (%) (Auto) 3.1H, Basophils (%) (Auto) 1.3, Sodium Level 140, Potassium Level 4.6, Chloride Level 98, Carbon Dioxide Level 37H, Blood Urea Nitrogen 21H, Creatinine 0.5L, Estimat Glomerular Filtration Rate > 60, Glucose Level 115H, Calcium Level 9.4, Magnesi um Level 2.2, Total Bilirubin 0.4, Aspartate Amino Transf (AST/SGOT) 31, Alanine Aminotransferase (ALT/SGPT) 51, Alkaline Phosphatase 106, Pro-B-Type Natriuretic Peptide 1066H, Total Protein 7.9, Albumin 3.3L, Globulin 4.6, Albumin/Globulin Ratio 0.7L Current Medications Medications (Trade) Dose Ordered Sig/Mayela Route PRN Reason Start Time Stop Time Status Last Admin Dose Admin Ascorbic Acid (Vitamin C) 500 mg DAILY GT 06/10/20 13:00 07/10/20 12:59 06/15/20 09:02 Carvedilol (Coreg) 6.25 mg EVERY 12 HOURS ORAL 06/13/20 09:00 07/13/20 08:59 06/15/20 20:55 Clonidine HCl (Catapres Tab) 0.1 mg Q4H PRN ORAL SBP >160 05/08/20 22:15 08/06/20 22:14 Levetiracetam (Keppra) 250 mg DAILY GT 05/19/20 15:11 06/18/20 15:10 06/15/20 08:28 Nitroglycerin (Nitro-Bid) 1 inch BEDTIME TOPIC 06/13/20 21:00 07/13/20 20:59 06/15/20 20:55 Tamsulosin HCl (Flomax) 0.4 mg BEDTIME ORAL 06/13/20 21:00 07/13/20 20:59 06/15/20 20:55 Assessment/Plan Assessment/Plan ASSESSMENT: Pulmonary congestion, respiratory failure, hypoxemia dementia, G-tube, seizure disorder, congestive heart failure, COPD sepsis, and acute OK. acute on chronic CO2 retention PLAN: oxygen as is; stable thus far. Breathing treatments and aspiration precautions. Monitor blood gases for change- now improved.keep negative. seizure medications. feeds and monitor residuals; DNR noted DVT prophylaxis; monitor imaging BIPAP as needed; repeat CXR guarded and at risk for decompensation dc planning on hold impression, plan, and exam edited and reviewed in detail care discussed with Attila Yuan MD Jun 16, 2020 07:52
[2020-06-16 08:00] VITALS: BP 155/80
[2020-06-16] MEDS: levETIRAcetam 500mg/5ml Liquid GT SCH (08:04)
[2020-06-16] MEDS: Carvedilol 6.25mg Tab ORAL SCH ×2 (08:05→20:39)
[2020-06-16] MEDS: Ascorbic Acid 500mg tab GT SCH (08:05)
--- NOTE | 2020-06-16 11:33 | Infectious Diseases Prog Note ---
Assessment/Plan Assessment/Plan antibiotics : none A 1. Urinary tract infection with E. coli s/p rx 2. MRSA nasal colonization. 3. CHF. 4. COPD. 5. Seizures. 6. Dementia. 7. He is negative for COVID-19. 8. pneumonia s/p rx 9. respiratory failure P 1. observe off antibiotics 2. will follow up clinically Subjective ROS Limited/Unobtainable: Yes Allergies: Coded Allergies: PENICILLINS (Unverified Allergy, Unknown, 08/11/19) Objective Last 24 Hour Vital Signs Date Time Temp Pulse Resp B/P (MAP) Pulse Ox O2 Delivery O2 Flow Rate FiO2 06/16/20 08:05 88 149/74 06/16/20 08:00 Nasal Cannula 3.0 Nasal Cannula 3.0 06/16/20 08:00 97.2 91 22 155/80 (105) 100 06/16/20 08:00 3.0 06/16/20 08:00 93 06/16/20 04:00 71 06/16/20 04:00 3.0 06/16/20 04:00 97.7 70 20 125/66 (85) 100 06/16/20 00:00 3.0 06/16/20 00:00 97.0 73 22 104/59 (74) 100 06/16/20 00:00 77 06/15/20 23:09 77 100 06/15/20 21:00 Nasal Cannula 3.0 Nasal Cannula 3.0 06/15/20 20:55 146/81 06/15/20 20:55 77 146/81 06/15/20 20:00 97.9 77 24 146/81 (102) 100 06/15/20 20:00 3.0 06/15/20 19:54 82 06/15/20 19:05 98 Nasal Cannula 3.0 32 06/15/20 16:00 97.9 72 24 145/88 (107) 99 06/15/20 16:00 3.0 06/15/20 16:00 74 06/15/20 12:00 3.0 06/15/20 12:00 97.7 68 24 137/79 (98) 98 06/15/20 12:00 73 Height (Feet): 5 Height (Inches): 6.00 Weight (Pounds): 137 Respiratory/Chest: lungs clear Cardiovascular: normal rate, regular rhythm, no gallop/murmur Abdomen: soft, non tender, other - GT Extremities: no edema Laboratory Tests Test 06/16/20 05:46 White Blood Count 6.0 K/UL (4.8-10.8) Red Blood Count 4.00 M/UL (4.70-6.10) L Hemoglobin 12.9 G/DL (14.2-18.0) L Hematocrit 39.2 % (42.0-52.0) L Mean Corpuscular Volume 98 FL (80-99) Mean Corpuscular Hemoglobin 32.3 PG (27.0-31.0) H Mean Corpuscular Hemoglobin Concent 32.9 G/DL (32.0-36.0) Red Cell Distribution Width 15.1 % (11.6-14.8) H Platelet Count 126 K/UL (150-450) L Mean Platelet Volume 10.9 FL (6.5-10.1) H Neutrophils (%) (Auto) 61.3 % (45.0-75.0) Lymphocytes (%) (Auto) 26.0 % (20.0-45.0) Monocytes (%) (Auto) 8.2 % (1.0-10.0) Eosinophils (%) (Auto) 3.1 % (0.0-3.0) H Basophils (%) (Auto) 1.3 % (0.0-2.0) Sodium Level 140 MMOL/L (136-145) Potassium Level 4.6 MMOL/L (3.5-5.1) Chloride Level 98 MMOL/L (98-107) Carbon Dioxide Level 37 MMOL/L (21-32) H Blood Urea Nitrogen 21 mg/dL (7-18) H Creatinine 0.5 MG/DL (0.55-1.30) L Estimat Glomerular Filtration Rate > 60 mL/min (>60) Glucose Level 115 MG/DL (74-106) H Calcium Level 9.4 MG/DL (8.5-10.1) Magnesium Level 2.2 MG/DL (1.8-2.4) Total Bilirubin 0.4 MG/DL (0.2-1.0) Aspartate Amino Transf (AST/SGOT) 31 U/L (15-37) Alanine Aminotransferase (ALT/SGPT) 51 U/L (12-78) Alkaline Phosphatase 106 U/L (46-116) Pro-B-Type Natriuretic Peptide 1066 pg/mL (0-125) H Total Protein 7.9 G/DL (6.4-8.2) Albumin 3.3 G/DL (3.4-5.0) L Globulin 4.6 g/dL Albumin/Globulin Ratio 0.7 (1.0-2.7) L Current Medications Medications (Trade) Dose Ordered Sig/Mayela Route PRN Reason Start Time Stop Time Status Last Admin Dose Admin Ascorbic Acid (Vitamin C) 500 mg DAILY GT 06/10/20 13:00 07/10/20 12:59 06/16/20 08:05 Carvedilol (Coreg) 6.25 mg EVERY 12 HOURS ORAL 06/13/20 09:00 07/13/20 08:59 06/16/20 08:05 Clonidine HCl (Catapres Tab) 0.1 mg Q4H PRN ORAL SBP >160 05/08/20 22:15 08/06/20 22:14 Levetiracetam (Keppra) 250 mg DAILY GT 05/19/20 15:11 06/18/20 15:10 06/16/20 08:04 Nitroglycerin (Nitro-Bid) 1 inch BEDTIME TOPIC 06/13/20 21:00 07/13/20 20:59 06/15/20 20:55 Tamsulosin HCl (Flomax) 0.4 mg BEDTIME ORAL 06/13/20 21:00 07/13/20 20:59 06/15/20 20:55 Josué Light MD Jun 16, 2020 11:33
[2020-06-16 12:00] VITALS: BP 137/74
[2020-06-16 16:00] VITALS: BP 139/79
--- NOTE | 2020-06-16 16:41 | Surgery Progress Note ---
Surgery Progress Note Subjective Additional Comments lethargic cxr noted infiltrates no n/v labs noted bipap prn Objective Last 24 Hour Vital Signs Date Time Temp Pulse Resp B/P (MAP) Pulse Ox O2 Delivery O2 Flow Rate FiO2 06/16/20 12:00 3.0 06/16/20 12:00 98.1 70 20 137/74 (95) 98 06/16/20 11:40 71 06/16/20 08:05 88 149/74 06/16/20 08:00 Nasal Cannula 3.0 Nasal Cannula 3.0 06/16/20 08:00 97.2 91 22 155/80 (105) 100 06/16/20 08:00 3.0 06/16/20 08:00 93 06/16/20 07:01 94 Nasal Cannula 3.0 32 06/16/20 04:00 71 06/16/20 04:00 3.0 06/16/20 04:00 97.7 70 20 125/66 (85) 100 06/16/20 00:00 3.0 06/16/20 00:00 97.0 73 22 104/59 (74) 100 06/16/20 00:00 77 06/15/20 23:09 77 100 06/15/20 21:00 Nasal Cannula 3.0 Nasal Cannula 3.0 06/15/20 20:55 146/81 06/15/20 20:55 77 146/81 06/15/20 20:00 97.9 77 24 146/81 (102) 100 06/15/20 20:00 3.0 06/15/20 19:54 82 06/15/20 19:05 98 Nasal Cannula 3.0 32 I&O Intake and Output 06/15/20 06/16/20 19:00 07:00 Intake Total 1370 ml 735 ml Output Total 300 ml 255 ml Balance 1070 ml 480 ml Intake Free Water 450 ml 255 ml Tube Feeding 920 ml 480 ml Output Urine Total 300 ml 250 ml Stool Total 5 ml # Bowel Movements 1 Dressing: saturated Cardiovascular: RSR Respiratory: decreased breath sounds Abdomen: non-tender, non-distended, decreased bowel sounds Extremities: no tenderness, no cyanosis Laboratory Tests Test 06/16/20 05:46 White Blood Count 6.0 K/UL (4.8-10.8) Red Blood Count 4.00 M/UL (4.70-6.10) L Hemoglobin 12.9 G/DL (14.2-18.0) L Hematocrit 39.2 % (42.0-52.0) L Mean Corpuscular Volume 98 FL (80-99) Mean Corpuscular Hemoglobin 32.3 PG (27.0-31.0) H Mean Corpuscular Hemoglobin Concent 32.9 G/DL (32.0-36.0) Red Cell Distribution Width 15.1 % (11.6-14.8) H Platelet Count 126 K/UL (150-450) L Mean Platelet Volume 10.9 FL (6.5-10.1) H Neutrophils (%) (Auto) 61.3 % (45.0-75.0) Lymphocytes (%) (Auto) 26.0 % (20.0-45.0) Monocytes (%) (Auto) 8.2 % (1.0-10.0) Eosinophils (%) (Auto) 3.1 % (0.0-3.0) H Basophils (%) (Auto) 1.3 % (0.0-2.0) Sodium Level 140 MMOL/L (136-145) Potassium Level 4.6 MMOL/L (3.5-5.1) Chloride Level 98 MMOL/L (98-107) Carbon Dioxide Level 37 MMOL/L (21-32) H Blood Urea Nitrogen 21 mg/dL (7-18) H Creatinine 0.5 MG/DL (0.55-1.30) L Estimat Glomerular Filtration Rate > 60 mL/min (>60) Glucose Level 115 MG/DL (74-106) H Calcium Level 9.4 MG/DL (8.5-10.1) Magnesium Level 2.2 MG/DL (1.8-2.4) Total Bilirubin 0.4 MG/DL (0.2-1.0) Aspartate Amino Transf (AST/SGOT) 31 U/L (15-37) Alanine Aminotransferase (ALT/SGPT) 51 U/L (12-78) Alkaline Phosphatase 106 U/L (46-116) Pro-B-Type Natriuretic Peptide 1066 pg/mL (0-125) H Total Protein 7.9 G/DL (6.4-8.2) Albumin 3.3 G/DL (3.4-5.0) L Globulin 4.6 g/dL Albumin/Globulin Ratio 0.7 (1.0-2.7) L Plan Problems: (1) Deep tissue injury Assessment & Plan: Patient identified to have bilateral heel concerns for potential developing DTI. Soft boggy no fluid collection no acute injury at this time. Patient identified to have sacral erythema and skin changes with concerns for developing deep tissue injury as well. No open areas. No fluid collections no fluctuance no drainage. On the scrotum patient is identified to have edema erythema and some abrasion along with incontinence associated dermatitis in the area. Patient identified to have abrasion to the nasal brim secondary to a facemask placement. Patient is chronically ill elderly and malnourished. Wound evaluated and care plan initiated. Treatment plan Apply skin protectant to the nasal bridge followed by foam dressing prior to facemask placement. Patient currently requires oxygen supplementation and therefore important to ensure receiving such along with protection of underlying epidermis. Apply OPTi foam to heels change every 3 days offload pressure with pillows Apply OPTi foam to sacral area monitor for incontinence change accordingly every 3 days and as needed saturation. Soft towel under scrotum. Continue with respiratory supportive care Turn every 2 hours Offload pressure with pillows Continue tube feeds nutritional optimization we will follow with recommendations thank you for let me participate patient's care (2) Dementia with behavioral problem (3) UTI (urinary tract infection) (4) Elevated troponin I level (5) AMS (altered mental status) (6) Dysphagia Assessment & Plan: DAILY ESTIMATED NEEDS: Needs based on Pulmonary, cardiac, 62kg 25-30 kcals/kg [id number] total kcals 1-1.5 g protein/kg 62-93 g total protein 25-30 mL/kg 3559-9994 total fluid mLs NUTRITION DIAGNOSIS: Swallowing difficulty r/t dysphagia as evidenced by pt is PEG dep, currently on continuous BIPAP. CURRENT TF: Glucerna 1.5 @ 40ml/hr ENTERAL NUTRITION RECOMMENDATIONS: Glucerna 1.5 goal of 45ml/hr x 24 hrs to provide 1080ml, 1620 kcal, 89g pro, 820ml free water * Maintain carb controlled TF of Glucerna 1.5 while CO2 critically elevated * As medically appropriate, increase goal rate to 45ml/hr x 24 hrs to better meet nutritional needs. * HOB over 30 degrees/ water flush per MD ADDITIONAL RECOMMENDATIONS: 1) Monitor BIPAP usage, safety of GT feeds -> continuous BIPAP at this time 2) Lytes daily, replete as needed Current TF Glucerna 1.5 @goal of 40ml/hr provides 2419mg K/day 3) Calibrated bed scale wts (Bed scale shows uptrend: 65kg-> 71kg) 4) Rec HgA1C for eval of BG control 5) F/up w/ WC eval: Continue MVI and Vit C (7) Seizure (8) NSTEMI (non-ST elevated myocardial infarction) (9) Respiratory insufficiency Assessment & Plan: constant required bipap ? trach dnr/dni discussed with pcp and pulm Duplex Doppler interrogation of the veins in both upper extremity is performed from the internal jugular veins to the radial and ulnar veins. No thrombus is identified. Basilic and cephalic veins are also patent bilaterally. There is mild subcutaneous edema of the right upper extremity. IMPRESSION: No evidence of deep venous thrombosis involving the upper extremities. Benitez Mayorga Jun 16, 2020 16:41
--- NOTE | 2020-06-16 19:59 | Cardiology Progress Note ---
Subjective DATE OF SERVICE: Jun 16, 2020 Remains on bipap at [facility], with better ABG parameters. BP remains well controlled. BNP increased to 2500 range, and patient was diuresed further with BNP decreasing now to 1000 range. Monitor: sinus with rare non-sustained ectopy. ABG (06/15) 7.46/81 Objective Last 24 Hour Vital Signs Date Time Temp Pulse Resp B/P (MAP) Pulse Ox O2 Delivery O2 Flow Rate FiO2 06/16/20 16:00 Nasal Cannula 3.0 Nasal Cannula 3.0 06/16/20 16:00 96.6 84 20 139/79 (99) 98 06/16/20 16:00 3.0 06/16/20 16:00 81 06/16/20 12:00 Nasal Cannula 3.0 Nasal Cannula 3.0 06/16/20 12:00 3.0 06/16/20 12:00 98.1 70 20 137/74 (95) 98 06/16/20 11:40 71 06/16/20 08:05 88 149/74 06/16/20 08:00 Nasal Cannula 3.0 Nasal Cannula 3.0 06/16/20 08:00 97.2 91 22 155/80 (105) 100 06/16/20 08:00 3.0 06/16/20 08:00 93 06/16/20 07:01 94 Nasal Cannula 3.0 32 06/16/20 04:00 71 06/16/20 04:00 3.0 06/16/20 04:00 97.7 70 20 125/66 (85) 100 06/16/20 00:00 3.0 06/16/20 00:00 97.0 73 22 104/59 (74) 100 06/16/20 00:00 77 06/15/20 23:09 77 100 06/15/20 21:00 Nasal Cannula 3.0 Nasal Cannula 3.0 06/15/20 20:55 146/81 06/15/20 20:55 77 146/81 06/15/20 20:00 97.9 77 24 146/81 (102) 100 06/15/20 20:00 3.0 06/15/20 19:54 82 ROS: unchanged from my evaluation of 05/06/20 HEENT: normal ENT inspection, other - bipap mask RHYTHM: NSR, VT LUNGS: diminished breath sounds, left-sided rhonchi CARDIAC: normal rate, regular rhythm, normal S1 and S2 ABDOMEN: non tender, soft, G-Tube intact EXTREMITIES: non-pitting, No edema Laboratory Tests Test 06/16/20 05:46 White Blood Count 6.0 K/UL (4.8-10.8) Red Blood Count 4.00 M/UL (4.70-6.10) L Hemoglobin 12.9 G/DL (14.2-18.0) L Hematocrit 39.2 % (42.0-52.0) L Mean Corpuscular Volume 98 FL (80-99) Mean Corpuscular Hemoglobin 32.3 PG (27.0-31.0) H Mean Corpuscular Hemoglobin Concent 32.9 G/DL (32.0-36.0) Red Cell Distribution Width 15.1 % (11.6-14.8) H Platelet Count 126 K/UL (150-450) L Mean Platelet Volume 10.9 FL (6.5-10.1) H Neutrophils (%) (Auto) 61.3 % (45.0-75.0) Lymphocytes (%) (Auto) 26.0 % (20.0-45.0) Monocytes (%) (Auto) 8.2 % (1.0-10.0) Eosinophils (%) (Auto) 3.1 % (0.0-3.0) H Basophils (%) (Auto) 1.3 % (0.0-2.0) Sodium Level 140 MMOL/L (136-145) Potassium Level 4.6 MMOL/L (3.5-5.1) Chloride Level 98 MMOL/L (98-107) Carbon Dioxide Level 37 MMOL/L (21-32) H Blood Urea Nitrogen 21 mg/dL (7-18) H Creatinine 0.5 MG/DL (0.55-1.30) L Estimat Glomerular Filtration Rate > 60 mL/min (>60) Glucose Level 115 MG/DL (74-106) H Calcium Level 9.4 MG/DL (8.5-10.1) Magnesium Level 2.2 MG/DL (1.8-2.4) Total Bilirubin 0.4 MG/DL (0.2-1.0) Aspartate Amino Transf (AST/SGOT) 31 U/L (15-37) Alanine Aminotransferase (ALT/SGPT) 51 U/L (12-78) Alkaline Phosphatase 106 U/L (46-116) Pro-B-Type Natriuretic Peptide 1066 pg/mL (0-125) H Total Protein 7.9 G/DL (6.4-8.2) Albumin 3.3 G/DL (3.4-5.0) L Globulin 4.6 g/dL Albumin/Globulin Ratio 0.7 (1.0-2.7) L Assessment/Plan Assessment/Plan E.coli UTI Sepsis Metabolic and toxic encephalopathies Cerebrovascular disease with dementia Acute myocardial ischemia and possible NSTEMI Dehydration/hypernatremia corrected Hypertension/HHD Ac/chronic respiratory acidosis now compensated Respiratory failure improving, but still requiring bipap support Ac diastolic CHF; BNP relatively unchanged. Metabolic acidosis resolved Pleural effusions Ac/chr renal failure with azotemia Paroxysmal ventricular tachycardia Hyperkalemia from exogenous repl rx - resolved Metabolic alkalosis improved Continue anti-anginal regimen including nitrates. Maintain current antiHTN regimen. Antimicrobial therapy per ID. Maintain adequate free water per Gtube. Periodic diuresis; monitor volume status and trend BNP. Bipap support-as needed to correct CO2 retention. DC plan when subacute site available Real Magana MD Jun 16, 2020 19:59
[2020-06-16 20:00] VITALS: BP 134/71
[2020-06-16] MEDS: Tamsulosin 0.4mg cap ORAL SCH (20:39)
[2020-06-16] MEDS: Nitroglycerin 2% oint pkt TOPIC SCH (20:39)
[2020-06-17] VITALS: BP 127/75
[2020-06-17 04:00] VITALS: BP 142/72
--- NOTE | 2020-06-17 06:23 | General Progress Note ---
Subjective ROS Limited/Unobtainable: No Constitutional: Reports: malaise, weakness HEENT: Reports: no symptoms Cardiovascular: Reports: no symptoms Respiratory: Reports: cough, shortness of breath Gastrointestinal/Abdominal: Reports: difficulty swallowing Genitourinary: Reports: no symptoms Neurologic/Psychiatric: Reports: anxiety, emotional problems, pre-existing deficit, seizure Endocrine: Reports: no symptoms Hematologic/Lymphatic: Reports: no symptoms Allergies: Coded Allergies: PENICILLINS (Unverified Allergy, Unknown, 08/11/19) All Systems: reviewed and negative except above Subjective stable. currently on NC. more alert. no fevers. tolerating tube feeds. Objective Last 24 Hour Vital Signs Date Time Temp Pulse Resp B/P (MAP) Pulse Ox O2 Delivery O2 Flow Rate FiO2 06/17/20 04:00 3.0 06/17/20 04:00 Nasal Cannula 3.0 Nasal Cannula 3.0 06/17/20 04:00 97.5 79 21 142/72 (95) 97 06/17/20 03:30 83 06/17/20 00:00 98.0 72 26 127/75 (92) 99 06/17/20 00:00 Nasal Cannula 3.0 Nasal Cannula 3.0 06/17/20 00:00 3.0 06/16/20 23:38 72 100 06/16/20 23:29 74 06/16/20 20:39 134/71 06/16/20 20:39 73 134/71 06/16/20 20:00 3.0 06/16/20 20:00 Nasal Cannula 3.0 Nasal Cannula 3.0 06/16/20 20:00 98.1 73 23 134/71 (92) 99 06/16/20 19:57 100 Nasal Cannula 3.0 32 06/16/20 19:09 83 06/16/20 16:00 Nasal Cannula 3.0 Nasal Cannula 3.0 06/16/20 16:00 96.6 84 20 139/79 (99) 98 06/16/20 16:00 3.0 06/16/20 16:00 81 06/16/20 12:00 Nasal Cannula 3.0 Nasal Cannula 3.0 06/16/20 12:00 3.0 06/16/20 12:00 98.1 70 20 137/74 (95) 98 06/16/20 11:40 71 06/16/20 08:05 88 149/74 06/16/20 08:00 Nasal Cannula 3.0 Nasal Cannula 3.0 06/16/20 08:00 97.2 91 22 155/80 (105) 100 06/16/20 08:00 3.0 06/16/20 08:00 93 06/16/20 07:01 94 Nasal Cannula 3.0 32 Intake and Output 06/16/20 06/17/20 19:00 07:00 Intake Total 705 ml 635 ml Output Total 550 ml 500 ml Balance 155 ml 135 ml Intake Free Water 225 ml 195 ml Tube Feeding 480 ml 440 ml Output Urine Total 550 ml 500 ml # Bowel Movements 1 Height (Feet): 5 Height (Inches): 6.00 Weight (Pounds): 137 Objective General Appearance: WD/WN, alert, confused. on bipap EENT: normal ENT inspection Neck: normal alignment Cardiovascular: normal rate Respiratory/Chest: chest wall non-tender, lungs clear, normal breath sounds Abdomen: normal bowel sounds, non tender, soft, no organomegaly Edema: no edema noted Arm (L), no edema noted Arm (R) Neurologic: alert, disoriented Assessment/Plan Problem List: (1) Seizure ICD Codes: R56.9 - Unspecified convulsions SNOMED: 77763095 (2) Dysphagia ICD Codes: R13.10 - Dysphagia, unspecified SNOMED: 05281067, 320199200 (3) UTI (urinary tract infection) ICD Codes: N39.0 - Urinary tract infection, site not specified SNOMED: 31932280 (4) Elevated troponin I level ICD Codes: R77.8 - Other specified abnormalities of plasma proteins SNOMED: 561925373 (5) AMS (altered mental status) ICD Codes: R41.82 - Altered mental status, unspecified SNOMED: 524226814 (6) NSTEMI (non-ST elevated myocardial infarction) ICD Codes: I21.4 - Non-ST elevation (NSTEMI) myocardial infarction SNOMED: 53695454 Status: stable Assessment/Plan: nasal cannula during the day bipap at [facility] monitor abg tube feeds monitor residuals sz rx labs pendign- will follow up anxiolytics as needed o2 resp rx dvt/stress ulcer prophylaxis. dc planning to snf when bed available Jorge Kee MD Jun 17, 2020 06:23
[2020-06-17 08:00] VITALS: BP 140/81
--- NOTE | 2020-06-17 08:07 | Pulmonology Progress Note ---
Subjective ROS Limited/Unobtainable: No Constitutional: Denies: fever Musculoskeletal: Denies: pain Allergies: Coded Allergies: PENICILLINS (Unverified Allergy, Unknown, 08/11/19) All Systems: reviewed and negative except above Subjective care noted on low dose oxygen GT in place now on NC and doing well Objective Last 24 Hour Vital Signs Date Time Temp Pulse Resp B/P (MAP) Pulse Ox O2 Delivery O2 Flow Rate FiO2 06/17/20 07:47 97 Nasal Cannula 3.0 32 06/17/20 04:00 3.0 06/17/20 04:00 Nasal Cannula 3.0 Nasal Cannula 3.0 06/17/20 04:00 97.5 79 21 142/72 (95) 97 06/17/20 03:30 83 06/17/20 00:00 98.0 72 26 127/75 (92) 99 06/17/20 00:00 Nasal Cannula 3.0 Nasal Cannula 3.0 06/17/20 00:00 3.0 06/16/20 23:38 72 100 06/16/20 23:29 74 06/16/20 20:39 134/71 06/16/20 20:39 73 134/71 06/16/20 20:00 3.0 06/16/20 20:00 Nasal Cannula 3.0 Nasal Cannula 3.0 06/16/20 20:00 98.1 73 23 134/71 (92) 99 06/16/20 19:57 100 Nasal Cannula 3.0 32 06/16/20 19:09 83 06/16/20 16:00 Nasal Cannula 3.0 Nasal Cannula 3.0 06/16/20 16:00 96.6 84 20 139/79 (99) 98 06/16/20 16:00 3.0 06/16/20 16:00 81 06/16/20 12:00 Nasal Cannula 3.0 Nasal Cannula 3.0 06/16/20 12:00 3.0 06/16/20 12:00 98.1 70 20 137/74 (95) 98 06/16/20 11:40 71 Intake and Output 06/16/20 06/17/20 19:00 07:00 Intake Total 705 ml 635 ml Output Total 550 ml 500 ml Balance 155 ml 135 ml Intake Free Water 225 ml 195 ml Tube Feeding 480 ml 440 ml Output Urine Total 550 ml 500 ml # Bowel Movements 1 Objective WDWN NAD reduced breath sounds bilaterally - no rhonchi or wheeze G2O2BTH without MRG NABS nontender no CC mild edema as is nonfocal on BIPAP reduced LOC Current Medications Medications (Trade) Dose Ordered Sig/Mayela Route PRN Reason Start Time Stop Time Status Last Admin Dose Admin Ascorbic Acid (Vitamin C) 500 mg DAILY GT 06/10/20 13:00 07/10/20 12:59 06/16/20 08:05 Carvedilol (Coreg) 6.25 mg EVERY 12 HOURS ORAL 06/13/20 09:00 07/13/20 08:59 06/16/20 20:39 Clonidine HCl (Catapres Tab) 0.1 mg Q4H PRN ORAL SBP >160 05/08/20 22:15 08/06/20 22:14 Levetiracetam (Keppra) 250 mg DAILY GT 05/19/20 15:11 06/18/20 15:10 06/16/20 08:04 Nitroglycerin (Nitro-Bid) 1 inch BEDTIME TOPIC 06/13/20 21:00 07/13/20 20:59 06/16/20 20:39 Tamsulosin HCl (Flomax) 0.4 mg BEDTIME ORAL 06/13/20 21:00 07/13/20 20:59 06/16/20 20:39 Assessment/Plan Assessment/Plan ASSESSMENT: Pulmonary congestion, respiratory failure, hypoxemia dementia, G-tube, seizure disorder, congestive heart failure, COPD sepsis, and acute PR. acute on chronic CO2 retention PLAN: oxygen as is; stable thus far. Breathing treatments and aspiration precautions. Monitor blood gases for change- now improved.keep negative. seizure medications. feeds and monitor residuals; DNR noted DVT prophylaxis; monitor imaging BIPAP as needed; repeat CXR guarded and at risk for decompensation dc planning on hold impression, plan, and exam edited and reviewed in detail care discussed with Attila Yuan MD Jun 17, 2020 08:07
[2020-06-17] MEDS: Carvedilol 6.25mg Tab ORAL SCH ×2 (08:43→20:11)
[2020-06-17] MEDS: Ascorbic Acid 500mg tab GT SCH (08:43)
[2020-06-17] MEDS: levETIRAcetam 500mg/5ml Liquid GT SCH (08:43)
--- NOTE | 2020-06-17 10:40 | Infectious Diseases Prog Note ---
Assessment/Plan Assessment/Plan antibiotics : none A 1. Urinary tract infection with E. coli s/p rx 2. MRSA nasal colonization. 3. CHF. 4. COPD. 5. Seizures. 6. Dementia. 7. He is negative for COVID-19. 8. pneumonia s/p rx 9. respiratory failure P 1. observe off antibiotics 2. will follow up clinically Subjective ROS Limited/Unobtainable: Yes Allergies: Coded Allergies: PENICILLINS (Unverified Allergy, Unknown, 08/11/19) Objective Last 24 Hour Vital Signs Date Time Temp Pulse Resp B/P (MAP) Pulse Ox O2 Delivery O2 Flow Rate FiO2 06/17/20 08:43 96 140/81 06/17/20 08:00 96 06/17/20 08:00 97.5 96 18 140/81 (100) 98 06/17/20 08:00 Nasal Cannula 3.0 Nasal Cannula 3.0 06/17/20 08:00 3.0 06/17/20 07:47 97 Nasal Cannula 3.0 32 06/17/20 04:00 3.0 06/17/20 04:00 Nasal Cannula 3.0 Nasal Cannula 3.0 06/17/20 04:00 97.5 79 21 142/72 (95) 97 06/17/20 03:30 83 06/17/20 00:00 98.0 72 26 127/75 (92) 99 06/17/20 00:00 Nasal Cannula 3.0 Nasal Cannula 3.0 06/17/20 00:00 3.0 06/16/20 23:38 72 100 06/16/20 23:29 74 06/16/20 20:39 134/71 06/16/20 20:39 73 134/71 06/16/20 20:00 3.0 06/16/20 20:00 Nasal Cannula 3.0 Nasal Cannula 3.0 06/16/20 20:00 98.1 73 23 134/71 (92) 99 06/16/20 19:57 100 Nasal Cannula 3.0 32 06/16/20 19:09 83 06/16/20 16:00 Nasal Cannula 3.0 Nasal Cannula 3.0 06/16/20 16:00 96.6 84 20 139/79 (99) 98 06/16/20 16:00 3.0 06/16/20 16:00 81 06/16/20 12:00 Nasal Cannula 3.0 Nasal Cannula 3.0 06/16/20 12:00 3.0 06/16/20 12:00 98.1 70 20 137/74 (95) 98 06/16/20 11:40 71 Height (Feet): 5 Height (Inches): 6.00 Weight (Pounds): 137 Respiratory/Chest: lungs clear Cardiovascular: normal rate, regular rhythm, no gallop/murmur Abdomen: soft, non tender, other - GT Extremities: no edema Current Medications Medications (Trade) Dose Ordered Sig/Mayela Route PRN Reason Start Time Stop Time Status Last Admin Dose Admin Ascorbic Acid (Vitamin C) 500 mg DAILY GT 06/10/20 13:00 07/10/20 12:59 06/17/20 08:43 Carvedilol (Coreg) 6.25 mg EVERY 12 HOURS ORAL 06/13/20 09:00 07/13/20 08:59 06/17/20 08:43 Clonidine HCl (Catapres Tab) 0.1 mg Q4H PRN ORAL SBP >160 05/08/20 22:15 08/06/20 22:14 Levetiracetam (Keppra) 250 mg DAILY GT 05/19/20 15:11 06/18/20 15:10 06/17/20 08:43 Nitroglycerin (Nitro-Bid) 1 inch BEDTIME TOPIC 06/13/20 21:00 07/13/20 20:59 06/16/20 20:39 Tamsulosin HCl (Flomax) 0.4 mg BEDTIME ORAL 06/13/20 21:00 07/13/20 20:59 06/16/20 20:39 Josué Light MD Jun 17, 2020 10:40
[2020-06-17 12:00] VITALS: BP 141/77
--- NOTE | 2020-06-17 14:41 | Surgery Progress Note ---
Surgery Progress Note Subjective Additional Comments no acute events comfortable Objective Last 24 Hour Vital Signs Date Time Temp Pulse Resp B/P (MAP) Pulse Ox O2 Delivery O2 Flow Rate FiO2 06/17/20 12:00 Nasal Cannula 3.0 Nasal Cannula 3.0 06/17/20 12:00 3.0 06/17/20 12:00 72 06/17/20 12:00 97.8 69 19 141/77 (98) 99 06/17/20 08:43 96 140/81 06/17/20 08:00 96 06/17/20 08:00 97.5 96 18 140/81 (100) 98 06/17/20 08:00 Nasal Cannula 3.0 Nasal Cannula 3.0 06/17/20 08:00 3.0 06/17/20 07:47 97 Nasal Cannula 3.0 32 06/17/20 04:00 3.0 06/17/20 04:00 Nasal Cannula 3.0 Nasal Cannula 3.0 06/17/20 04:00 97.5 79 21 142/72 (95) 97 06/17/20 03:30 83 06/17/20 00:00 98.0 72 26 127/75 (92) 99 06/17/20 00:00 Nasal Cannula 3.0 Nasal Cannula 3.0 06/17/20 00:00 3.0 06/16/20 23:38 72 100 06/16/20 23:29 74 06/16/20 20:39 134/71 06/16/20 20:39 73 134/71 06/16/20 20:00 3.0 06/16/20 20:00 Nasal Cannula 3.0 Nasal Cannula 3.0 06/16/20 20:00 98.1 73 23 134/71 (92) 99 06/16/20 19:57 100 Nasal Cannula 3.0 32 06/16/20 19:09 83 06/16/20 16:00 Nasal Cannula 3.0 Nasal Cannula 3.0 06/16/20 16:00 96.6 84 20 139/79 (99) 98 06/16/20 16:00 3.0 06/16/20 16:00 81 I&O Intake and Output 06/16/20 06/17/20 19:00 07:00 Intake Total 705 ml 635 ml Output Total 550 ml 500 ml Balance 155 ml 135 ml Intake Free Water 225 ml 195 ml Tube Feeding 480 ml 440 ml Output Urine Total 550 ml 500 ml # Bowel Movements 1 Cardiovascular: RSR Respiratory: decreased breath sounds Extremities: no edema, no tenderness, no cyanosis Plan Problems: (1) Deep tissue injury Assessment & Plan: Patient identified to have bilateral heel concerns for potential developing DTI. Soft boggy no fluid collection no acute injury at this time. Patient identified to have sacral erythema and skin changes with concerns for developing deep tissue injury as well. No open areas. No fluid collections no fluctuance no drainage. On the scrotum patient is identified to have edema erythema and some abrasion along with incontinence associated dermatitis in the area. Patient identified to have abrasion to the nasal brim secondary to a facemask placement. Patient is chronically ill elderly and malno urished. Wound evaluated and care plan initiated. Treatment plan Apply skin protectant to the nasal bridge followed by foam dressing prior to facemask placement. Patient currently requires oxygen supplementation and therefore important to ensure receiving such along with protection of underlying epidermis. Apply OPTi foam to heels change every 3 days offload pressure with pillows Apply OPTi foam to sacral area monitor for incontinence change accordingly every 3 days and as needed saturation. Soft towel under scrotum. Continue with respiratory supportive care Turn every 2 hours Offload pressure with pillows Continue tube feeds nutritional optimization we will follow with recommendations thank you for let me participate patient's care (2) Dementia with behavioral problem (3) UTI (urinary tract infection) (4) Elevated troponin I level (5) AMS (altered mental status) (6) Dysphagia Assessment & Plan: DAILY ESTIMATED NEEDS: Needs based on Pulmonary, cardiac, 62kg 25-30 kcals/kg 0565-7493 total kcals 1-1.5 g protein/kg 62-93 g total protein 25-30 mL/kg 2564-0448 total fluid mLs NUTRITION DIAGNOSIS: Swallowing difficulty r/t dysphagia as evidenced by pt is PEG dep, currently on continuous BIPAP. CURRENT TF: Glucerna 1.5 @ 40ml/hr ENTERAL NUTRITION RECOMMENDATIONS: Glucerna 1.5 goal of 45ml/hr x 24 hrs to provide 1080ml, 1620 kcal, 89g pro, 820ml free water * Maintain carb controlled TF of Glucerna 1.5 while CO2 critically elevated * As medically appropriate, increase goal rate to 45ml/hr x 24 hrs to better meet nutritional needs. * HOB over 30 degrees/ water flush per MD ADDITIONAL RECOMMENDATIONS: 1) Monitor BIPAP usage, safety of GT feeds -> continuous BIPAP at this time 2) Lytes daily, replete as needed Current TF Glucerna 1.5 @goal of 40ml/hr provides 2419mg K/day 3) Calibrated bed scale wts (Bed scale shows uptrend: 65kg-> 71kg) 4) Rec HgA1C for eval of BG control 5) F/up w/ WC eval: Continue MVI and Vit C (7) Seizure (8) NSTEMI (non-ST elevated myocardial infarction) (9) Respiratory insufficiency Assessment & Plan: constant required bipap ? trach dnr/dni discussed with pcp and pulm Duplex Doppler interrogation of the veins in both upper extremity is performed from the internal jugular veins to the radial and ulnar veins. No thrombus is identified. Basilic and cephalic veins are also patent bilaterally. There is mild subcutaneous edema of the right upper extremity. IMPRESSION: No evidence of deep venous thrombosis involving the upper extremities. Benitez Mayorga Jun 17, 2020 14:41
[2020-06-17 16:00] VITALS: BP 146/82
[2020-06-17 20:00] VITALS: BP 147/80
[2020-06-17] MEDS: Tamsulosin 0.4mg cap ORAL SCH (20:11)
[2020-06-17] MEDS: Nitroglycerin 2% oint pkt TOPIC SCH (20:13)
[2020-06-18] VITALS: BP 135/66
--- NOTE | 2020-06-18 01:52 | Cardiology Progress Note ---
Subjective DATE OF SERVICE: Jun 17, 2020 Remains on bipap as needed; now mostly on low flow oxygen by MS. BP remains well controlled. BNP increased to 2500 range, and patient was diuresed further with BNP decre asing now to 1000 range. Monitor: sinus with rare non-sustained ectopy. ABG (06/15) 7.46/58/81 Objective Last 24 Hour Vital Signs Date Time Temp Pulse Resp B/P (MAP) Pulse Ox O2 Delivery O2 Flow Rate FiO2 06/18/20 00:00 3.0 06/18/20 00:00 97.0 68 24 135/66 (89) 99 06/18/20 00:00 Nasal Cannula 3.0 Nasal Cannula 3.0 06/17/20 23:30 69 06/17/20 20:13 147/80 06/17/20 20:11 82 147/80 06/17/20 20:03 86 06/17/20 20:00 97.9 82 22 147/80 (102) 98 06/17/20 20:00 3.0 06/17/20 20:00 Nasal Cannula 3.0 Nasal Cannula 3.0 06/17/20 19:30 97 Nasal Cannula 3.0 32 06/17/20 16:00 97.6 72 19 146/82 (103) 98 06/17/20 16:00 Nasal Cannula 3.0 Nasal Cannula 3.0 06/17/20 16:00 3.0 06/17/20 16:00 73 06/17/20 12:00 Nasal Cannula 3.0 Nasal Cannula 3.0 06/17/20 12:00 3.0 06/17/20 12:00 72 06/17/20 12:00 97.8 69 19 141/77 (98) 99 06/17/20 08:43 96 140/81 06/17/20 08:00 96 06/17/20 08:00 97.5 96 18 140/81 (100) 98 06/17/20 08:00 Nasal Cannula 3.0 Nasal Cannula 3.0 06/17/20 08:00 3.0 06/17/20 07:47 97 Nasal Cannula 3.0 32 06/17/20 04:00 3.0 06/17/20 04:00 Nasal Cannula 3.0 Nasal Cannula 3.0 06/17/20 04:00 97.5 79 21 142/72 (95) 97 06/17/20 03:30 83 ROS: unchanged from my evaluation of 05/06/20 HEENT: normal ENT inspection, other - bipap mask RHYTHM: NSR, VT LUNGS: diminished breath sounds, left-sided rhonchi CARDIAC: normal rate, regular rhythm, normal S1 and S2 ABDOMEN: non tender, soft, G-Tube intact EXTREMITIES: non-pitting, No edema Assessment/Plan Assessment/Plan E.coli UTI Sepsis Metabolic and toxic encephalopathies Cerebrovascular disease with dementia Acute myocardial ischemia and possible NSTEMI Dehydration/hypernatremia corrected Hypertension/HHD Ac/chronic respiratory acidosis now compensated Respiratory failure improving, but still requiring bipap support Ac diastolic CHF; BNP relatively unchanged. Metabolic acidosis resolved Pleural effusions Ac/chr renal failure with azotemia Paroxysmal ventricular tachycardia Hyperkalemia from exogenous repl rx - resolved Metabolic alkalosis improved Continue anti-anginal regimen including nitrates. Maintain current antiHTN regimen. Antimicrobial therapy per ID. Maintain adequate free water per Gtube. Periodic diuresis; monitor volume status and trend BNP. Bipap support-as needed to correct CO2 retention. DC plan when subacute site available Real Magana MD Jun 18, 2020 01:52
[2020-06-18 04:00] VITALS: BP 133/68
[2020-06-18 08:00] VITALS: BP 155/84
[2020-06-18] MEDS: levETIRAcetam 500mg/5ml Liquid GT SCH (09:35)
[2020-06-18] MEDS: Ascorbic Acid 500mg tab GT SCH (09:35)
[2020-06-18] MEDS: Carvedilol 6.25mg Tab ORAL SCH (09:35)
--- NOTE | 2020-06-18 11:30 | Infectious Diseases Prog Note ---
Assessment/Plan Assessment/Plan antibiotics : none A 1. Urinary tract infection with E. coli s/p rx 2. MRSA nasal colonization. 3. CHF. 4. COPD. 5. Seizures. 6. Dementia. 7. He is negative for COVID-19. 8. pneumonia s/p rx 9. respiratory failure P 1. observe off antibiotics 2. will follow up clinically Subjective ROS Limited/Unobtainable: Yes Allergies: Coded Allergies: PENICILLINS (Unverified Allergy, Unknown, 08/11/19) Objective Last 24 Hour Vital Signs Date Time Temp Pulse Resp B/P (MAP) Pulse Ox O2 Delivery O2 Flow Rate FiO2 06/18/20 09:35 85 155/84 06/18/20 08:00 3.0 06/18/20 08:00 Nasal Cannula 3.0 Nasal Cannula 3.0 06/18/20 08:00 97.5 85 21 155/84 (107) 95 06/18/20 04:00 Nasal Cannula 3.0 Nasal Cannula 3.0 06/18/20 04:00 97.3 74 20 133/68 (89) 96 06/18/20 04:00 3.0 06/18/20 03:32 78 06/18/20 00:00 3.0 06/18/20 00:00 97.0 68 24 135/66 (89) 99 06/18/20 00:00 Nasal Cannula 3.0 Nasal Cannula 3.0 06/17/20 23:30 69 06/17/20 20:13 147/80 06/17/20 20:11 82 147/80 06/17/20 20:03 86 06/17/20 20:00 97.9 82 22 147/80 (102) 98 06/17/20 20:00 3.0 06/17/20 20:00 Nasal Cannula 3.0 Nasal Cannula 3.0 06/17/20 19:30 97 Nasal Cannula 3.0 32 06/17/20 16:00 97.6 72 19 146/82 (103) 98 06/17/20 16:00 Nasal Cannula 3.0 Nasal Cannula 3.0 06/17/20 16:00 3.0 06/17/20 16:00 73 06/17/20 12:00 Nasal Cannula 3.0 Nasal Cannula 3.0 06/17/20 12:00 3.0 12/8/20 12:00 72 06/17/20 12:00 97.8 69 19 141/77 (98) 99 Height (Feet): 5 Height (Inches): 6.00 Weight (Pounds): 137 Respiratory/Chest: lungs clear Cardiovascular: normal rate, regular rhythm, no gallop/murmur Abdomen: soft, non tender, other - GT Extremities: no edema Current Medications Medications (Trade) Dose Ordered Sig/Mayela Route PRN Reason Start Time Stop Time Status Last Admin Dose Admin Ascorbic Acid (Vitamin C) 500 mg DAILY GT 06/10/20 13:00 07/10/20 12:59 06/18/20 09:35 Carvedilol (Coreg) 6.25 mg EVERY 12 HOURS ORAL 06/13/20 09:00 07/13/20 08:59 06/18/20 09:35 Clonidine HCl (Catapres Tab) 0.1 mg Q4H PRN ORAL SBP >160 05/08/20 22:15 08/06/20 22:14 Levetiracetam (Keppra) 250 mg DAILY GT 05/19/20 15:11 06/18/20 15:10 06/18/20 09:35 Nitroglycerin (Nitro-Bid) 1 inch BEDTIME TOPIC 06/13/20 21:00 07/13/20 20:59 06/17/20 20:13 Tamsulosin HCl (Flomax) 0.4 mg BEDTIME ORAL 06/13/20 21:00 07/13/20 20:59 06/17/20 20:11 Josué Light MD Jun 18, 2020 11:30
[2020-06-18 12:00] VITALS: BP 135/79
--- NOTE | 2020-06-18 12:37 | Pulmonology Progress Note ---
Subjective ROS Limited/Unobtainable: Yes Constitutional: Denies: fever Musculoskeletal: Denies: pain Allergies: Coded Allergies: PENICILLINS (Unverified Allergy, Unknown, 08/11/19) All Systems: reviewed and negative except above Subjective care noted on low dose oxygen GT in place now on NC and doing well Objective Last 24 Hour Vital Signs Date Time Temp Pulse Resp B/P (MAP) Pulse Ox O2 Delivery O2 Flow Rate FiO2 06/18/20 12:00 98.2 69 21 135/79 (97) 97 06/18/20 12:00 Nasal Cannula 3.0 Nasal Cannula 3.0 06/18/20 12:00 3.0 06/18/20 09:35 85 155/84 06/18/20 08:00 3.0 06/18/20 08:00 86 06/18/20 08:00 Nasal Cannula 3.0 Nasal Cannula 3.0 06/18/20 08:00 97.5 85 21 155/84 (107) 95 06/18/20 04:00 Nasal Cannula 3.0 Nasal Cannula 3.0 06/18/20 04:00 97.3 74 20 133/68 (89) 96 06/18/20 04:00 3.0 06/18/20 03:32 78 06/18/20 00:00 3.0 06/18/20 00:00 97.0 68 24 135/66 (89) 99 06/18/20 00:00 Nasal Cannula 3.0 Nasal Cannula 3.0 06/17/20 23:30 69 06/17/20 20:13 147/80 06/17/20 20:11 82 147/80 06/17/20 20:03 86 06/17/20 20:00 97.9 82 22 147/80 (102) 98 06/17/20 20:00 3.0 06/17/20 20:00 Nasal Cannula 3.0 Nasal Cannula 3.0 06/17/20 19:30 97 Nasal Cannula 3.0 32 06/17/20 16:00 97.6 72 19 146/82 (103) 98 06/17/20 16:00 Nasal Cannula 3.0 Nasal Cannula 3.0 06/17/20 16:00 3.0 06/17/20 16:00 73 Intake and Output 06/17/20 06/18/20 19:00 07:00 Intake Total 515 ml 665 ml Output Total 600 ml 700 ml Balance -85 ml -35 ml Intake Free Water 75 ml 225 ml Tube Feeding 440 ml 440 ml Output Urine Total 600 ml 700 ml Objective WDWN NAD reduced breath sounds bilaterally - no rhonchi or wheeze [id number] without MRG NABS nontender no CC mild edema as is nonfocal off BIPAP reduced LOC Current Medications Medications (Trade) Dose Ordered Sig/Mayela Route PRN Reason Start Time Stop Time Status Last Admin Dose Admin Ascorbic Acid (Vitamin C) 500 mg DAILY GT 06/10/20 13:00 07/10/20 12:59 06/18/20 09:35 Carvedilol (Coreg) 6.25 mg EVERY 12 HOURS ORAL 06/13/20 09:00 07/13/20 08:59 06/18/20 09:35 Clonidine HCl (Catapres Tab) 0.1 mg Q4H PRN ORAL SBP >160 05/08/20 22:15 08/06/20 22:14 Levetiracetam (Keppra) 250 mg DAILY GT 05/19/20 15:11 06/18/20 15:10 06/18/20 09:35 Nitroglycerin (Nitro-Bid) 1 inch BEDTIME TOPIC 06/13/20 21:00 07/13/20 20:59 06/17/20 20:13 Tamsulosin HCl (Flomax) 0.4 mg BEDTIME ORAL 06/13/20 21:00 07/13/20 20:59 06/17/20 20:11 Assessment/Plan Assessment/Plan ASSESSMENT: Pulmonary congestion, respiratory failure, hypoxemia dementia, G-tube, seizure disorder, congestive heart failure, COPD sepsis, and acute PA. acute on chronic CO2 retention PLAN: oxygen as is; stable thus far. Breathing treatments and aspiration precautions. Monitor blood gases for change- now improved.keep negative. seizure medications. feeds and monitor residuals; DNR noted DVT prophylaxis; monitor imaging BIPAP as needed; recommended at SNF guarded and at risk for decompensation dc planning impression, plan, and exam edited and reviewed in detail care discussed with Attila Yuan MD Jun 18, 2020 12:37
[2020-06-18 16:00] VITALS: BP 156/72
[2020-06-18 16:30] VITALS: BP 167/86
--- NOTE | 2020-06-18 16:43 | General Progress Note ---
Subjective Constitutional: Reports: malaise, weakness HEENT: Reports: no symptoms Cardiovascular: Reports: no symptoms Respiratory: Reports: shortness of breath Gastrointestinal/Abdominal: Reports: difficulty swallowing Genitourinary: Reports: no symptoms Neurologic/Psychiatric: Reports: pre-existing deficit, seizure Endocrine: Reports: no symptoms Hematologic/Lymphatic: Reports: no symptoms Allergies: Coded Allergies: PENICILLINS (Unverified Allergy, Unknown, 08/11/19) All Systems: reviewed and negative except above Subjective stable. currently on NC. more alert. no fevers. tolerating tube feeds. Objective Last 24 Hour Vital Signs Date Time Temp Pulse Resp B/P (MAP) Pulse Ox O2 Delivery O2 Flow Rate FiO2 06/18/20 16:30 167/86 06/18/20 12:00 98.2 69 21 135/79 (97) 97 06/18/20 12:00 Nasal Cannula 3.0 Nasal Cannula 3.0 06/18/20 12:00 3.0 06/18/20 09:35 85 155/84 06/18/20 08:56 86 18 98 Nasal Cannula 32.0 06/18/20 08:56 98 Nasal Cannula 3.0 32 06/18/20 08:00 3.0 06/18/20 08:00 86 06/18/20 08:00 Nasal Cannula 3.0 Nasal Cannula 3.0 06/18/20 08:00 97.5 85 21 155/84 (107) 95 06/18/20 04:00 Nasal Cannula 3.0 Nasal Cannula 3.0 06/18/20 04:00 97.3 74 20 133/68 (89) 96 06/18/20 04:00 3.0 06/18/20 03:32 78 06/18/20 00:00 3.0 06/18/20 00:00 97.0 68 24 135/66 (89) 99 06/18/20 00:00 Nasal Cannula 3.0 Nasal Cannula 3.0 06/17/20 23:30 69 06/17/20 20:13 147/80 06/17/20 20:11 82 147/80 06/17/20 20:03 86 06/17/20 20:00 97.9 82 22 147/80 (102) 98 06/17/20 20:00 3.0 06/17/20 20:00 Nasal Cannula 3.0 Nasal Cannula 3.0 06/17/20 19:30 97 Nasal Cannula 3.0 32 Intake and Output 06/17/20 06/18/20 19:00 07:00 Intake Total 515 ml 705 ml Output Total 600 ml 700 ml Balance -85 ml 5 ml Intake Free Water 75 ml 225 ml Tube Feeding 440 ml 480 ml Output Urine Total 600 ml 700 ml Height (Feet): 5 Height (Inches): 6.00 Weight (Pounds): 137 Objective General Appearance: WD/WN, alert, confused. on bipap EENT: normal ENT inspection Neck: normal alignment Cardiovascular: normal rate Respiratory/Chest: chest wall non-tender, lungs clear, normal breath sounds Abdomen: normal bowel sounds, non tender, soft, no organomegaly Edema: no edema noted Arm (L), no edema noted Arm (R) Neurologic: alert, disoriented Assessment/Plan Problem List: (1) Seizure ICD Codes: R56.9 - Unspecified convulsions SNOMED: 41122832 (2) Dysphagia ICD Codes: R13.10 - Dysphagia, unspecified SNOMED: 64207363, 028239057 (3) UTI (urinary tract infection) ICD Codes: N39.0 - Urinary tract infection, site not specified SNOMED: 14797961 (4) Elevated troponin I level ICD Codes: R77.8 - Other specified abnormalities of plasma proteins SNOMED: 034076348 (5) AMS (altered mental status) ICD Codes: R41.82 - Altered mental status, unspecified SNOMED: 328054036 (6) NSTEMI (non-ST elevated myocardial infarction) ICD Codes: I21.4 - Non-ST elevation (NSTEMI) myocardial infarction SNOMED: 73290254 Status: stable Assessment/Plan: nasal cannula during the day 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 dc planning to snf when bed available Jorge Kee MD Jun 18, 2020 16:43
[2020-06-18] MEDS ORDERED: NS 275ml ONE (17:14)
[2020-06-18] MEDS ORDERED: D5W 275ml ONE (17:14)
--- NOTE | 2020-06-18 17:25 | Surgery Progress Note ---
Surgery Progress Note Subjective Additional Comments looks better on O2 tolerating diet no n/v Objective Last 24 Hour Vital Signs Date Time Temp Pulse Resp B/P (MAP) Pulse Ox O2 Delivery O2 Flow Rate FiO2 06/18/20 16:30 167/86 06/18/20 16:00 98.2 72 20 156/72 (100) 97 06/18/20 12:00 98.2 69 21 135/79 (97) 97 06/18/20 12:00 Nasal Cannula 3.0 Nasal Cannula 3.0 06/18/20 12:00 3.0 06/18/20 09:35 85 155/84 06/18/20 08:56 86 18 98 Nasal Cannula 32.0 06/18/20 08:56 98 Nasal Cannula 3.0 32 06/18/20 08:00 3.0 06/18/20 08:00 86 06/18/20 08:00 Nasal Cannula 3.0 Nasal Cannula 3.0 06/18/20 08:00 97.5 85 21 155/84 (107) 95 06/18/20 04:00 Nasal Cannula 3.0 Nasal Cannula 3.0 06/18/20 04:00 97.3 74 20 133/68 (89) 96 06/18/20 04:00 3.0 06/18/20 03:32 78 06/18/20 00:00 3.0 06/18/20 00:00 97.0 68 24 135/66 (89) 99 06/18/20 00:00 Nasal Cannula 3.0 Nasal Cannula 3.0 06/17/20 23:30 69 06/17/20 20:13 147/80 06/17/20 20:11 82 147/80 06/17/20 20:03 86 06/17/20 20:00 97.9 82 22 147/80 (102) 98 06/17/20 20:00 3.0 06/17/20 20:00 Nasal Cannula 3.0 Nasal Cannula 3.0 06/17/20 19:30 97 Nasal Cannula 3.0 32 I&O Intake and Output 06/17/20 06/18/20 19:00 07:00 Intake Total 515 ml 705 ml Output Total 600 ml 700 ml Balance -85 ml 5 ml Intake Free Water 75 ml 225 ml Tube Feeding 440 ml 480 ml Output Urine Total 600 ml 700 ml Dressing: saturated Cardiovascular: RSR Respiratory: decreased breath sounds Abdomen: non-tender, present bowel sounds Extremities: no edema, no tenderness, no cyanosis Plan Problems: (1) Deep tissue injury Assessment & Plan: Patient identified to have bilateral heel concerns for potential developing DTI. Soft boggy no fluid collection no acute injury at this time. Patient identified to have sacral erythema and skin changes with concerns for developing deep tissue injury as well. No open areas. No fluid collections no fluctuance no drainage. On the scrotum patient is identified to have edema erythema and some abrasion along with incontinence associated dermatitis in the area. Patient identified to have abrasion to the nasal brim secondary to a facemask placement. Patient is chronically ill elderly and malnourished. Wound evaluated and care plan initiated. Treatment plan Apply skin protectant to the nasal bridge followed by foam dressing prior to facemask placement. Patient currently requires oxygen supplementation and therefore important to ensure receiving such along with protection of underlying epidermis. Apply OPTi foam to heels change every 3 days offload pressure with pillows Apply OPTi foam to sacral area monitor for incontinence change accordingly every 3 days and as needed saturation. Soft towel under scrotum. Continue with respiratory supportive care Turn every 2 hours Offload pressure with pillows Continue tube feeds nutritional optimization we will follow with recommendations thank you for let me participate patient's care (2) Dementia with behavioral problem (3) UTI (urinary tract infection) (4) Elevated troponin I level (5) AMS (altered mental status) (6) Dysphagia Assessment & Plan: DAILY ESTIMATED NEEDS: Needs based on Pulmonary, cardiac, 62kg 25-30 kcals/kg 9472-6278 total kcals 1-1.5 g protein/kg 62-93 g total protein 25-30 mL/kg 6124-6595 total fluid mLs NUTRITION DIAGNOSIS: Swallowing difficulty r/t dysphagia as evidenced by pt is PEG dep, currently on continuous BIPAP. CURRENT TF: Glucerna 1.5 @ 40ml/hr ENTERAL NUTRITION RECOMMENDATIONS: Glucerna 1.5 goal of 45ml/hr x 24 hrs to provide 1080ml, 1620 kcal, 89g pro, 820ml free water * Maintain carb controlled TF of Glucerna 1.5 while CO2 critically elevated * As medically appropriate, increase goal rate to 45ml/hr x 24 hrs to better meet nutritional needs. * HOB over 30 degrees/ water flush per MD ADDITIONAL RECOMMENDATIONS: 1) Monitor BIPAP usage, safety of GT feeds -> continuous BIPAP at this time 2) Lytes daily, replete as needed Current TF Glucerna 1.5 @goal of 40ml/hr provides 2419mg K/day 3) Calibrated bed scale wts (Bed scale shows uptrend: 65kg-> 71kg) 4) Rec HgA1C for eval of BG control 5) F/up w/ WC eval: Continue MVI and Vit C (7) Seizure (8) NSTEMI (non-ST elevated myocardial infarction) (9) Respiratory insufficiency Assessment & Plan: constant required bipap ? trach dnr/dni discussed with pcp and pulm Duplex Doppler interrogation of the veins in both upper extremity is performed from the internal jugular veins to the radial and ulnar veins. No thrombus is identified. Basilic and cephalic veins are also patent bilaterally. There is mild subcutaneous edema of the right upper extremity. IMPRESSION: No evidence of deep venous thrombosis involving the upper extremities. Benitez Mayorga Jun 18, 2020 17:25
--- NOTE | 2020-06-18 22:00 | Cardiology Progress Note ---
Subjective DATE OF SERVICE: Jun 18, 2020 Remains on low flow oxygen by [facility]. BP remains well controlled. Monitor: sinus with rare non-sustained ectopy. ABG (06/15) 7.46/58/81 Objective Last 24 Hour Vital Signs Date Time Temp Pulse Resp B/P (MAP) Pulse Ox O2 Delivery O2 Flow Rate FiO2 06/18/20 16:30 167/86 06/18/20 16:00 98.2 72 20 156/72 (100) 97 06/18/20 12:00 98.2 69 21 135/79 (97) 97 06/18/20 12:00 Nasal Cannula 3.0 Nasal Cannula 3.0 06/18/20 12:00 3.0 06/18/20 09:35 85 155/84 06/18/20 08:56 86 18 98 Nasal Cannula 32.0 06/18/20 08:56 98 Nasal Cannula 3.0 32 06/18/20 08:00 3.0 06/18/20 08:00 86 06/18/20 08:00 Nasal Cannula 3.0 Nasal Cannula 3.0 06/18/20 08:00 97.5 85 21 155/84 (107) 95 06/18/20 04:00 Nasal Cannula 3.0 Nasal Cannula 3.0 06/18/20 04:00 97.3 74 20 133/68 (89) 96 06/18/20 04:00 3.0 06/18/20 03:32 78 06/18/20 00:00 3.0 06/18/20 00:00 97.0 68 24 135/66 (89) 99 06/18/20 00:00 Nasal Cannula 3.0 Nasal Cannula 3.0 06/17/20 23:30 69 ROS: unchanged from my evaluation of 05/06/20 HEENT: normal ENT inspection, other - bipap mask RHYTHM: NSR, VT LUNGS: diminished breath sounds, left-sided rhonchi CARDIAC: normal rate, regular rhythm, normal S1 and S2 ABDOMEN: non tender, soft, G-Tube intact EXTREMITIES: non-pitting, No edema Assessment/Plan Assessment/Plan E.coli UTI Sepsis Metabolic and toxic encephalopathies Cerebrovascular disease with dementia Acute myocardial ischemia and possible NSTEMI Dehydration/hypernatremia corrected Hypertension/HHD Ac/chronic respiratory acidosis now compensated Respiratory failure improving, but still requiring bipap support Ac diastolic CHF; BNP relatively unchanged. Metabolic acidosis resolved Pleural effusions Ac/chr renal failure with azotemia Paroxysmal ventricular tachycardia Hyperkalemia from exogenous repl rx - resolved Metabolic alkalosis improved Continue current anti-anginal regimen including nitrates. Maintain current antiHTN regimen. Maintain adequate free water per Gtube. Periodic diuresismay be needed at Subacute facility. Bipap support-as needed to correct CO2 retention. DC plan to subacute site today; DC medx regimen reviewed. Real Magana MD Jun 18, 2020 22:00
== END 2020-06-18 17:15 | DRG 871 ==
LOC: EDBD 09:49 → EMR 10:28 → EDBEDREQ 12:26 → 2E 12:48 → EDBEDREQ 12:54 → 2E 05-07 02:53 → 2W 05-11 12:30 → 2E 06-05 18:22 → 2W 06-10 12:15
DX: A41.51 Sepsis due to Escherichia coli [E. coli] (principal); G92 Toxic encephalopathy; I21.4 Non-ST elevation (NSTEMI) myocardial infarction; J96.01 Acute respiratory failure with hypoxia; J15.6 Pneumonia due to other Gram-negative bacteria; I50.31 Acute diastolic (congestive) heart failure; N39.0 Urinary tract infection, site not specified; J44.0 Chronic obstructive pulmonary disease with (acute) lower respiratory infection; I13.0 Hypertensive heart and chronic kidney disease with heart failure and stage 1 through stage 4 chronic kidney disease, or unspecified chronic kidney disease; F03.91 Unspecified dementia, unspecified severity, with behavioral disturbance; N17.9 Acute kidney failure, unspecified; E87.0 Hyperosmolality and hypernatremia; I47.2 Ventricular tachycardia; E87.3 Alkalosis; N18.9 Chronic kidney disease, unspecified; G40.909 Epilepsy, unspecified, not intractable, without status epilepticus; R13.10 Dysphagia, unspecified; Z93.1 Gastrostomy status; Z66 Do not resuscitate; Z22.322 Carrier or suspected carrier of Methicillin resistant Staphylococcus aureus; E86.1 Hypovolemia; E86.0 Dehydration; E87.6 Hypokalemia; Z20.828 Contact with and (suspected) exposure to other viral communicable diseases
CPT/HCPCS: 36415; 70450; 71045; 80048; 80053; 80202; 81003; 82270; 82550; 82553; 82728; 82803; 83605; 83615; 83735; 83880; 84443; 84484; 85007; 85025; 85379; 86140; 87040; 87070; 87081; 87086; 87181; 87205; 93005; 93970; 94660; 94664; 96361; 96365; 99285; J7030; J8499; U0002